=== PATIENT | female | born 1940 ===

== ENCOUNTER 2020-10-10 11:21 | Outpatient (REF) | payer MEDICARE, MEDICAID, SELFPAY ==
--- NOTE | 2020-10-10 11:31 | XR_ITS ---
EXAMINATION: XR KNEE, LEFT CLINICAL INFORMATION: Left knee pain COMPARISON: 06/04/2017 TECHNIQUE: AP and lateral views of the left knee. FINDINGS: Prior total knee arthroplasty. No acute findings compared to 06/04/2017. There is stable appearance of the constrained femoral and tibial components. There is a stable, approximately 0.2 cm rim of lucency at the interface between the stem of the femoral component and bone. Stable appearance of the cement in the region of the femoral metaphysis. There is no convincing loosening of the hardware. There is chronic, mild, smooth cortical thickening in the distal femoral diaphysis around the region of the tip of the femoral stem. No stress fracture in this region of the femur. There is an old fracture defect in the anterior cortex of the femoral metaphysis, unchanged compared to 06/04/2017. No abnormal lucency around the cemented tibial component. No periprosthetic fracture. No knee joint effusion. XR/XR knee LT 2V IMPRESSION: Intact, stable appearance of the left total knee arthroplasty compared to 06/04/2017. Stable appearance of chronic, smooth cortical thickening around the region of the tip of the femoral stem. This is compatible with a chronic stress response. However, no stress fracture.
== END 2020-10-10 11:22 | disposition home or self-care (01) ==
LOC: HO.XRAY 11:21
PROVIDERS: PCP Internal Medicine; Visit Provider Nurse Practitioner Family
DX: M25.562 Pain in left knee (principal)
CPT/HCPCS: 73560

== ENCOUNTER 2020-11-14 09:02 | Outpatient (REF) | payer MEDICARE, MEDICAID, SELFPAY ==
[2020-11-14 10:29] LABS: MANUAL DIFF FLAG NO
[2020-11-14 10:32] LABS: Glucose Urine UA NEG (NEG); Leukocyte Esterase Urine NEG (NEG); Nitrite Urine NEG (NEG); PH 5.5 (5.0-8.0); Specific Gravity - Urine 1.025 (1.005-1.025); Urine Blood NEG (NEG); Urine Ketones NEG (NEG); Urine Protein NEG (NEG-TRACE)
[2020-11-14 10:38] LABS: Appearance Urine CLEAR; Color Urine YELLOW
[2020-11-14 10:40] LABS: Basophils Percent Auto 0.1 % (0-2); Eosinophils Absolute Auto 0.1 X10*3/uL (0.0-0.4); Eosinophils Percent Auto 1.6 % (0-4); Hematocrit 41.6 % (37-47); Hemoglobin 12.6 g/dl (12.0-16.0); Imm Gran Abs Auto 0.02 X10*3/uL (0.00-0.03); Imm Gran Pct Auto 0.2 % (0.0-0.4); Lymphocytes Absolute Auto 2.4 X10*3/uL (1.2-4.9); Lymphocytes Percent Auto 28.3 % (20-40); Mean Corpuscular HGB Conc 30.3 g/dl (31.0-35.0); Mean Corpuscular Hemoglobin 25.6 pg (27.0-33.0); Mean Corpuscular Volume 84.4 fL (80-98); Mean Platelet Volume 10.5 fL (9.4-12.3); Monocytes Absolute Auto 0.4 X10*3/uL (0.1-1.2); Monocytes Percent Auto 4.9 % (2-11); Neutrophils Absolute Auto 5.4 X10*3/uL (2.0-8.3); Neutrophils Percent Auto 64.9 % (45-73); Platelet Count 234 X10*3/uL (160-400); Red Blood Count 4.93 X10*6/uL (4.20-5.50); Red Cell Distribution Width 16.4 % (11.0-16.0); White Blood Count 8.4 X10*3/uL (4.8-10.8)
[2020-11-14 11:06] LABS: Alanine Aminotransferase 11 U/L (0-31); Albumin Level 3.8 g/dL (3.5-5.0); Alkaline Phosphatase 110 U/L (39-117); Anion Gap 14 (12-20); Aspartate Amino Transferase 13 U/L (5-31); Bilirubin Total 0.6 mg/dL (0.0-1.0); Blood Urea Nitrogen 20 mg/dL (9-16); Carbon Dioxide 30 mmol/L (22-29); Chloride 104 mmol/L (96-108); Cholesterol 147 mg/dL; Estimated Glomerular Filt Rate > 60; Glucose Fasting 80 mg/dL (60-99); HDL Cholesterol 50 mg/dL; LDL Cholesterol Calculated 82 mg/dl; Potassium 4.3 mmol/l (3.3-5.1); Sodium 144 mmol/L (135-145); Total Protein 7.3 g/dL (6.5-8.0); Triglycerides 78 mg/dL
[2020-11-14 11:29] LABS: TSH reflex Free T4 4.16 mIU/mL (0.32-4.0)
[2020-11-14 11:31] LABS: Creatinine Urine 129.48 mg/dL; Microalbum/Creatinine Ratio Ur 4.6 ug/mg cr
[2020-11-14 12:01] LABS: Free T4 (Free Thyroxine) 0.94 ng/dL (0.71-1.85)
== END 2020-11-14 09:03 | disposition home or self-care (01) ==
LOC: HO.10HDL 09:02
PROVIDERS: Visit Provider Internal Medicine
DX: I10 Essential (primary) hypertension (principal); E11.9 Type 2 diabetes mellitus without complications; Z79.4 Long term (current) use of insulin; E78.00 Pure hypercholesterolemia, unspecified; E78.5 Hyperlipidemia, unspecified; E55.9 Vitamin D deficiency, unspecified; E66.01 Morbid (severe) obesity due to excess calories; Z68.42 Body mass index [BMI] 45.0-49.9, adult
CPT/HCPCS: 36415; 80053; 80061; 81003; 82043; 82306; 84439; 84443; 85025

== ENCOUNTER 2021-02-10 08:31 | Outpatient (REF) | payer MEDICARE, MEDICAID, SELFPAY ==
[2021-02-10 10:26] LABS: Glucose Urine UA NEG (NEG); Leukocyte Esterase Urine NEG (NEG); Nitrite Urine NEG (NEG); PH 5.5 (5.0-8.0); Specific Gravity - Urine 1.025 (1.005-1.025); Urine Blood NEG (NEG); Urine Ketones NEG (NEG); Urine Protein NEG (NEG-TRACE)
[2021-02-10 10:27] LABS: MANUAL DIFF FLAG NO
[2021-02-10 10:35] LABS: Basophils Percent Auto 0.1 % (0-2); Eosinophils Absolute Auto 0.2 X10*3/uL (0.0-0.4); Eosinophils Percent Auto 1.9 % (0-4); Hematocrit 42.2 % (37-47); Hemoglobin 12.7 g/dl (12.0-16.0); Imm Gran Abs Auto 0.02 X10*3/uL (0.00-0.03); Imm Gran Pct Auto 0.3 % (0.0-0.4); Lymphocytes Absolute Auto 2.5 X10*3/uL (1.2-4.9); Lymphocytes Percent Auto 31.7 % (20-40); Mean Corpuscular HGB Conc 30.1 g/dl (31.0-35.0); Mean Corpuscular Hemoglobin 26.1 pg (27.0-33.0); Mean Corpuscular Volume 86.7 fL (80-98); Mean Platelet Volume 10.6 fL (9.4-12.3); Monocytes Absolute Auto 0.5 X10*3/uL (0.1-1.2); Monocytes Percent Auto 5.8 % (2-11); Neutrophils Absolute Auto 4.7 X10*3/uL (2.0-8.3); Neutrophils Percent Auto 60.2 % (45-73); Platelet Count 265 X10*3/uL (160-400); Red Blood Count 4.87 X10*6/uL (4.20-5.50); Red Cell Distribution Width 15.8 % (11.0-16.0); White Blood Count 7.7 X10*3/uL (4.8-10.8)
[2021-02-10 10:47] LABS: Creatinine Urine 119.69 mg/dL; Microalbumin Urine < 5.0 mg/L
[2021-02-10 10:48] LABS: Color Urine YELLOW
[2021-02-10 10:49] LABS: Appearance Urine CLEAR
[2021-02-10 10:50] LABS: Alanine Aminotransferase 10 U/L (0-31); Albumin Level 3.9 g/dL (3.5-5.0); Alkaline Phosphatase 108 U/L (39-117); Anion Gap 16 (12-20); Aspartate Amino Transferase 13 U/L (5-31); Bilirubin Total 0.7 mg/dL (0.0-1.0); Blood Urea Nitrogen 21 mg/dL (9-16); Calcium 8.9 mg/dL (8.4-10.2); Carbon Dioxide 29 mmol/L (22-29); Chloride 102 mmol/L (96-108); Cholesterol 126 mg/dL; Estimated Glomerular Filt Rate > 60; Glucose Fasting 133 mg/dL (60-99); HDL Cholesterol 45 mg/dL; LDL Cholesterol Calculated 65 mg/dl; Potassium 4.5 mmol/L (3.3-5.1); Sodium 142 mmol/L (135-145); Total Protein 7.5 g/dL (6.5-8.0); Triglycerides 83 mg/dL
[2021-02-10 11:12] LABS: TSH reflex Free T4 5.88 uIU/mL (0.32-4.0); Vitamin D 25-OH Total 33.6 ng/mL (>30)
[2021-02-10 11:45] LABS: Free T4 (Free Thyroxine) 0.86 ng/dL (0.71-1.85)
== END 2021-02-10 08:32 | disposition home or self-care (01) ==
LOC: HO.10HDL 08:31
PROVIDERS: Visit Provider Internal Medicine
DX: I10 Essential (primary) hypertension (principal); E55.9 Vitamin D deficiency, unspecified; E66.01 Morbid (severe) obesity due to excess calories; Z68.42 Body mass index [BMI] 45.0-49.9, adult; E11.9 Type 2 diabetes mellitus without complications; Z79.4 Long term (current) use of insulin; E78.00 Pure hypercholesterolemia, unspecified; J30.9 Allergic rhinitis, unspecified; K21.9 Gastro-esophageal reflux disease without esophagitis
CPT/HCPCS: 36415; 80053; 80061; 81003; 82043; 82306; 84439; 84443; 85025

== ENCOUNTER 2021-07-03 08:30 | Outpatient (REF) | payer MEDICARE, MEDICAID, SELFPAY ==
[2021-07-03 10:34] LABS: MANUAL DIFF FLAG NO
[2021-07-03 10:42] LABS: Basophils Percent Auto 0.3 % (0-2); Eosinophils Absolute Auto 0.1 X10*3/uL (0.0-0.4); Eosinophils Percent Auto 1.9 % (0-4); Imm Gran Abs Auto 0.02 X10*3/uL (0.00-0.03); Imm Gran Pct Auto 0.3 % (0.0-0.4); Lymphocytes Absolute Auto 2.3 X10*3/uL (1.2-4.9); Lymphocytes Percent Auto 32.1 % (20-40); Mean Corpuscular HGB Conc 30.2 g/dl (31.0-35.0); Mean Corpuscular Hemoglobin 25.6 pg (27.0-33.0); Mean Corpuscular Volume 84.8 fL (80-98); Mean Platelet Volume 10.4 fL (9.4-12.3); Monocytes Absolute Auto 0.3 X10*3/uL (0.1-1.2); Monocytes Percent Auto 4.6 % (2-11); Neutrophils Absolute Auto 4.4 X10*3/uL (2.0-8.3); Neutrophils Percent Auto 60.8 % (45-73); Platelet Count 264 X10*3/uL (160-400); Red Blood Count 5.07 X10*6/uL (4.20-5.50); Red Cell Distribution Width 16.2 % (11.0-16.0); White Blood Count 7.3 X10*3/uL (4.8-10.8)
[2021-07-03 10:55] LABS: Alanine Aminotransferase 9 U/L (0-31); Albumin Level 3.9 g/dL (3.5-5.0); Alkaline Phosphatase 86 U/L (39-117); Anion Gap 12 (12-20); Aspartate Amino Transferase 10 U/L (5-31); Bilirubin Total 0.6 mg/dL (0.0-1.0); Blood Urea Nitrogen 17 mg/dL (9-16); Calcium 9.4 mg/dL (8.4-10.2); Carbon Dioxide 30 mmol/L (22-29); Chloride 102 mmol/L (96-108); Cholesterol 207 mg/dL; Estimated Glomerular Filt Rate > 60; Glucose Fasting 232 mg/dL (60-99); HDL Cholesterol 47 mg/dL; LDL Cholesterol Calculated 134 mg/dl; Potassium 4.1 mmol/L (3.3-5.1); Sodium 140 mmol/L (135-145); Total Protein 7.2 g/dL (6.5-8.0); Triglycerides 134 mg/dL
[2021-07-03 11:18] LABS: Free T4 (Free Thyroxine) 0.89 ng/dL (0.71-1.85); Thyroid Stimulating Hormone 4.17 uIU/mL (0.32-4.0); Vitamin D 25-OH Total 22.7 ng/mL (>30)
[2021-07-03 12:19] LABS: Estimated Average Glucose 169 mg/dL; Hemoglobin A1c % 7.5 %
[2021-07-03 14:21] LABS: Glucose Urine UA NEG (NEG); Leukocyte Esterase Urine NEG (NEG); Nitrite Urine NEG (NEG); Specific Gravity - Urine 1.025 (1.005-1.025); Urine Blood NEG (NEG); Urine Ketones NEG (NEG); Urine Protein NEG (NEG-TRACE)
[2021-07-03 14:22] LABS: Appearance Urine HAZY; Color Urine YELLOW
[2021-07-03 14:47] LABS: Creatinine Urine 182.48 mg/dL; Microalbum/Creatinine Ratio Ur 3.8 ug/mg cr
== END 2021-07-03 08:31 | disposition home or self-care (01) ==
LOC: HO.10HDL 08:30
PROVIDERS: Visit Provider Internal Medicine
DX: E66.01 Morbid (severe) obesity due to excess calories (principal); Z68.42 Body mass index [BMI] 45.0-49.9, adult; K21.9 Gastro-esophageal reflux disease without esophagitis; I10 Essential (primary) hypertension; E55.9 Vitamin D deficiency, unspecified; R79.89 Other specified abnormal findings of blood chemistry; E78.00 Pure hypercholesterolemia, unspecified; E03.9 Hypothyroidism, unspecified; E11.9 Type 2 diabetes mellitus without complications; Z79.4 Long term (current) use of insulin
CPT/HCPCS: 36415; 80053; 80061; 81003; 82043; 82306; 83036; 84439; 84443; 85025

== ENCOUNTER 2021-09-29 08:53 | Outpatient (REF) | payer MEDICARE, MEDICAID, SELFPAY ==
[2021-09-29 10:14] LABS: MANUAL DIFF FLAG NO
[2021-09-29 10:22] LABS: Basophils Percent Auto 0.2 % (0-2); Eosinophils Absolute Auto 0.1 X10*3/uL (0.0-0.4); Eosinophils Percent Auto 1.7 % (0-4); Hematocrit 41.1 % (37.0-47.0); Hemoglobin 12.6 g/dl (12.0-16.0); Imm Gran Abs Auto 0.02 X10*3/uL (0.00-0.03); Imm Gran Pct Auto 0.2 % (0.0-0.4); Lymphocytes Absolute Auto 2.7 X10*3/uL (1.2-4.9); Lymphocytes Percent Auto 32.6 % (20-40); Mean Corpuscular HGB Conc 30.7 g/dl (31.0-35.0); Mean Corpuscular Hemoglobin 26.2 pg (27.0-33.0); Mean Corpuscular Volume 85.4 fL (80.0-98.0); Mean Platelet Volume 10.6 fL (9.4-12.3); Monocytes Absolute Auto 0.4 X10*3/uL (0.1-1.2); Monocytes Percent Auto 5.1 % (2-11); Neutrophils Percent Auto 60.2 % (45-73); Platelet Count 286 X10*3/uL (160-400); Red Blood Count 4.81 X10*6/uL (4.20-5.50); White Blood Count 8.3 X10*3/uL (4.8-10.8)
[2021-09-29 10:27] LABS: Appearance Urine HAZY; Color Urine YELLOW; Glucose Urine UA NEG (NEG); Leukocyte Esterase Urine NEG (NEG); Nitrite Urine NEG (NEG); PH 5.5 (5.0-8.0); Specific Gravity - Urine >= 1.030 (1.005-1.025); Urine Blood NEG (NEG); Urine Ketones NEG (NEG); Urine Protein NEG (NEG-TRACE)
[2021-09-29 10:28] LABS: Estimated Average Glucose 209 mg/dL; Hemoglobin A1c % 8.9 %
[2021-09-29 11:02] LABS: Alanine Aminotransferase 16 U/L (0-31); Albumin Level 3.9 g/dL (3.5-5.0); Alkaline Phosphatase 124 U/L (39-117); Anion Gap 15 (12-20); Aspartate Amino Transferase 14 U/L (5-31); Bilirubin Total 0.8 mg/dL (0.0-1.0); Blood Urea Nitrogen 23 mg/dL (9-16); Calcium 9.5 mg/dL (8.4-10.2); Carbon Dioxide 28 mmol/L (22-29); Chloride 104 mmol/L (96-108); Cholesterol 133 mg/dL; Estimated Glomerular Filt Rate 58; Glucose Fasting 216 mg/dL (60-99); HDL Cholesterol 43 mg/dL; LDL Cholesterol Calculated 71 mg/dl; Potassium 4.5 mmol/L (3.3-5.1); Sodium 142 mmol/L (135-145); Total Protein 7.4 g/dL (6.5-8.0); Triglycerides 95 mg/dL
[2021-09-29 11:03] LABS: Creatinine Urine 205.14 mg/dL; Microalbum/Creatinine Ratio Ur 5.3 ug/mg cr
[2021-09-29 11:08] LABS: Thyroid Stimulating Hormone 3.29 uIU/mL (0.32-4.0); Vitamin D 25-OH Total 24.3 ng/mL (>30)
== END 2021-09-29 08:54 | disposition home or self-care (01) ==
LOC: HO.10HDL 08:53
PROVIDERS: Visit Provider Internal Medicine
DX: I10 Essential (primary) hypertension (principal); E03.9 Hypothyroidism, unspecified; E55.9 Vitamin D deficiency, unspecified; E11.9 Type 2 diabetes mellitus without complications; E78.00 Pure hypercholesterolemia, unspecified
CPT/HCPCS: 36415; 80053; 80061; 81003; 82043; 82306; 83036; 84443; 85025

== ENCOUNTER 2022-02-09 08:22 | Outpatient (REF) | payer MEDICARE, MEDICAID, SELFPAY ==
[2022-02-09 10:39] LABS: MANUAL DIFF FLAG NO
[2022-02-09 10:44] LABS: Basophils Percent Auto 0.3 % (0-2); Eosinophils Absolute Auto 0.1 X10*3/uL (0.0-0.4); Eosinophils Percent Auto 1.2 % (0-4); Hematocrit 42.4 % (37.0-47.0); Hemoglobin 12.9 g/dl (12.0-16.0); Imm Gran Abs Auto 0.03 X10*3/uL (0.00-0.03); Imm Gran Pct Auto 0.4 % (0.0-0.4); Lymphocytes Absolute Auto 2.3 X10*3/uL (1.2-4.9); Lymphocytes Percent Auto 29.8 % (20-40); Mean Corpuscular HGB Conc 30.4 g/dl (31.0-35.0); Mean Corpuscular Hemoglobin 26.2 pg (27.0-33.0); Mean Corpuscular Volume 86.2 fL (80.0-98.0); Mean Platelet Volume 10.9 fL (9.4-12.3); Monocytes Absolute Auto 0.5 X10*3/uL (0.1-1.2); Neutrophils Absolute Auto 4.9 x10*3/uL (2.0-8.3); Neutrophils Percent Auto 62.3 % (45-73); Platelet Count 234 X10*3/uL (160-400); Red Blood Count 4.92 X10*6/uL (4.20-5.50); Red Cell Distribution Width 16.3 % (11.0-16.0); White Blood Count 7.8 X10*3/uL (4.8-10.8)
[2022-02-09 11:00] LABS: Alanine Aminotransferase 13 U/L (0-31); Alkaline Phosphatase 106 U/L (39-117); Anion Gap 13 (12-20); Aspartate Amino Transferase 18 U/L (5-31); Bilirubin Total 0.5 mg/dL (0.0-1.0); Blood Urea Nitrogen 20 mg/dL (9-16); Calcium 9.9 mg/dL (8.4-10.2); Carbon Dioxide 29 mmol/L (22-29); Chloride 106 mmol/L (96-108); Cholesterol 179 mg/dL; Estimated Glomerular Filt Rate > 60; Glucose Fasting 160 mg/dL (60-99); HDL Cholesterol 53 mg/dL; LDL Cholesterol Calculated 107 mg/dl; Potassium 4.6 mmol/L (3.3-5.1); Sodium 143 mmol/L (135-145); Total Protein 7.7 g/dL (6.5-8.0); Triglycerides 95 mg/dL
[2022-02-09 11:08] LABS: Appearance Urine CLEAR; Color Urine YELLOW; Glucose Urine UA NEG (NEG); Leukocyte Esterase Urine NEG (NEG); Nitrite Urine NEG (NEG); PH 5.5 (5.0-8.0); Specific Gravity - Urine >= 1.030 (1.005-1.025); Urine Blood NEG (NEG); Urine Ketones NEG (NEG); Urine Protein NEG (NEG-TRACE)
[2022-02-09 11:08] LABS: Estimated Average Glucose 174 mg/dL; Hemoglobin A1c % 7.7 %
[2022-02-09 11:20] LABS: Free T4 (Free Thyroxine) 0.91 ng/dL (0.71-1.85); Thyroid Stimulating Hormone 5.35 uIU/mL (0.32-4.0)
[2022-02-09 12:11] LABS: Creatinine Urine 156.59 mg/dL; Microalbum/Creatinine Ratio Ur 4.4 ug/mg cr
== END 2022-02-09 08:23 | disposition home or self-care (01) ==
LOC: HO.10HDL 08:22
PROVIDERS: Visit Provider Internal Medicine
DX: E78.00 Pure hypercholesterolemia, unspecified (principal); E11.9 Type 2 diabetes mellitus without complications; E55.9 Vitamin D deficiency, unspecified; R79.89 Other specified abnormal findings of blood chemistry; I10 Essential (primary) hypertension
CPT/HCPCS: 36415; 80053; 80061; 81003; 82043; 82306; 83036; 84439; 84443; 85025

== ENCOUNTER 2022-05-08 08:31 | Outpatient (REF) | payer MEDICARE, MEDICAID, SELFPAY ==
[2022-05-08 10:32] LABS: MANUAL DIFF FLAG NO
[2022-05-08 10:36] LABS: Basophils Percent Auto 0.3 % (0-2); Eosinophils Absolute Auto 0.2 X10*3/uL (0.0-0.4); Eosinophils Percent Auto 2.5 % (0-4); Hematocrit 43.4 % (37.0-47.0); Hemoglobin 12.8 g/dl (12.0-16.0); Imm Gran Abs Auto 0.02 X10*3/uL (0.00-0.03); Imm Gran Pct Auto 0.3 % (0.0-0.4); Lymphocytes Absolute Auto 2.5 X10*3/uL (1.2-4.9); Lymphocytes Percent Auto 35.1 % (20-40); Mean Corpuscular HGB Conc 29.5 g/dl (31.0-35.0); Mean Corpuscular Volume 84.8 fL (80.0-98.0); Mean Platelet Volume 10.2 fL (9.4-12.3); Monocytes Absolute Auto 0.4 X10*3/uL (0.1-1.2); Monocytes Percent Auto 5.4 % (2-11); Neutrophils Absolute Auto 4.1 x10*3/uL (2.0-8.3); Neutrophils Percent Auto 56.4 % (45-73); Platelet Count 259 X10*3/uL (160-400); Red Blood Count 5.12 X10*6/uL (4.20-5.50); Red Cell Distribution Width 16.7 % (11.0-16.0); White Blood Count 7.2 X10*3/uL (4.8-10.8)
[2022-05-08 10:48] LABS: Appearance Urine HAZY; Color Urine YELLOW; Glucose Urine UA NEG (NEG); Leukocyte Esterase Urine NEG (NEG); Nitrite Urine NEG (NEG); Urine Blood NEG (NEG); Urine Ketones NEG (NEG); Urine Protein NEG (NEG-TRACE)
[2022-05-08 10:51] LABS: Alanine Aminotransferase 8 U/L (0-31); Albumin Level 3.8 g/dL (3.5-5.0); Alkaline Phosphatase 96 U/L (39-117); Anion Gap 12 (12-20); Aspartate Amino Transferase 10 U/L (5-31); Bilirubin Total 0.3 mg/dL (0.0-1.0); Blood Urea Nitrogen 16 mg/dL (9-16); Calcium 9.1 mg/dL (8.4-10.2); Carbon Dioxide 30 mmol/L (22-29); Chloride 105 mmol/L (96-108); Cholesterol 216 mg/dL; Estimated Glomerular Filt Rate > 60; Glucose Fasting 111 mg/dL (60-99); HDL Cholesterol 47 mg/dL; LDL Cholesterol Calculated 143 mg/dl; Potassium 4.6 mmol/L (3.3-5.1); Sodium 142 mmol/L (135-145); Total Protein 7.3 g/dL (6.5-8.0); Triglycerides 131 mg/dL
[2022-05-08 11:05] LABS: Free T4 (Free Thyroxine) 0.83 ng/dL (0.71-1.85); Thyroid Stimulating Hormone 3.18 uIU/mL (0.32-4.0); Vitamin D 25-OH Total 21.6 ng/mL (>30)
[2022-05-08 11:21] LABS: Estimated Average Glucose 163 mg/dL; Hemoglobin A1c % 7.3 %
[2022-05-08 11:49] LABS: Creatinine Urine 71.19 mg/dL; Microalbum/Creatinine Ratio Ur 8.4 ug/mg cr
== END 2022-05-08 08:32 | disposition home or self-care (01) ==
LOC: HO.10HDL 08:31
PROVIDERS: Visit Provider Internal Medicine
DX: R79.89 Other specified abnormal findings of blood chemistry (principal); E78.00 Pure hypercholesterolemia, unspecified; E11.9 Type 2 diabetes mellitus without complications; I10 Essential (primary) hypertension; E55.9 Vitamin D deficiency, unspecified
CPT/HCPCS: 36415; 80053; 80061; 81003; 82043; 82306; 83036; 84439; 84443; 85025

== ENCOUNTER 2022-05-22 10:29 | Outpatient (REF) | payer MEDICARE, MEDICAID, SELFPAY ==
--- NOTE | ~2022-05-22 | MM_ITS ---
EXAMINATION: BONE DENSITOMETRY CLINICAL INDICATION: Age-related osteoporosis without current pathological fracture. COMPARISON: Previous BD dated 09/17/2017 and baseline BD dated 09/25/2008. TECHNIQUE: Using a [employer] DXA System (software version: 13.1) manufactured by [employer], dual-energy x-ray absorptiometry was performed of the lumbar spine and left hip. The images are of good technical quality. Summary results are attached. FINDINGS: AP SPINE L1-L4: Current: BMD 0.874 g/cm2, Z-score -1.9, T-score -2.6, osteoporosis, 2.2% increase from previous, 15.5% increase from baseline (<5% change is not significant). Prior: BMD 0.855 g/cm2. Baseline: BMD 0.757 g/cm2. LEFT FEMUR, NECK: Current: BMD 0.816 g/cm2, Z-score -0.2, T-score -1.6, osteopenia. Prior: BMD 0.834 g/cm2. Baseline: BMD 0.705 g/cm2. LEFT FEMUR, TOTAL: Current: BMD 0.843 g/cm2, Z-score -0.1, T-score -1.3, osteopenia, 3.2% decrease from previous, 2.1% decrease from baseline (<5% change is not significant). Prior: BMD 0.871 g/cm2. Baseline: BMD 0.861 g/cm2. IDENTIFIED RISK FACTORS: Early menopause, secondary osteoporosis, hysterectomy, bilateral oophorectomy, glucocorticoids (chronic), thiazide, osteoporosis. HISTORY OF FRACTURE: None listed. MEDICATIONS: Calcium supplements or multivitamin, vitamin D. MM/XR DEXA axial skeleton IMPRESSION: 1. DIAGNOSIS: Osteoporosis based on the lowest T-score value of -2.6 in the lumbar spine applying World Health Organization criteria. 2. 10-YEAR FRACTURE RISK PREDICTION, FRAX: Major osteoporotic fracture (clinical spine, forearm, hip or shoulder) 10.5%. Hip fracture 2.7%. 3. Treatment Recommendations: NOF guidelines recommend consideration for treatment in postmenopausal women and men age 50 and older presenting with the following: -A hip or vertebral (clinical or morphometric) fracture. -T-score less than or equal to -2.5 at the femoral neck or spine after appropriate evaluation to exclude secondary causes. -Low bone mass at the hip or spine and a 10-year fracture probability by FRAX of greater than or equal to 3% for hip fracture or greater than or equal to 20% for major osteoporotic fracture based on the [place] adapted WHO algorithm. 4. Other Recommendations: All treatment decisions require clinical judgment and consideration of individual patient factors, including patient preferences, comorbidities, previous drug use, risk factors not captured in the FRAX model (e.g. frailty, falls, vitamin D deficiency, increased bone turnover, interval significant decline in bone density) and possible under or overestimation of fracture risk by FRAX. Additional medical evaluation for secondary cause of low bone mineral density may be appropriate. FUTURE SCAN RECOMMENDATION: People with diagnosed cases of osteoporosis or at high risk for fracture should have regular bone mineral density tests. For patients eligible for Medicare, routine testing is allowed once every 2 years. The testing frequency can be increased to one year for patients who have rapidly progressing disease, those who are receiving or discontinuing medical therapy to restore bone mass, or have additional risk factors.
== END 2022-05-22 10:30 | disposition home or self-care (01) ==
LOC: HO.MAMMO 10:29
PROVIDERS: PCP Internal Medicine; Visit Provider Internal Medicine
DX: Z13.820 Encounter for screening for osteoporosis (principal); M81.0 Age-related osteoporosis without current pathological fracture; Z78.0 Asymptomatic menopausal state
CPT/HCPCS: 77080

== ENCOUNTER 2022-09-07 08:53 | Outpatient (REF) | payer MEDICARE, MEDICAID, SELFPAY ==
[2022-09-07 10:28] LABS: MANUAL DIFF FLAG NO
[2022-09-07 10:39] LABS: Basophils Percent Auto 0.5 % (0-2); Eosinophils Absolute Auto 0.2 X10*3/uL (0.0-0.4); Eosinophils Percent Auto 2.3 % (0-4); Hematocrit 42.3 % (37.0-47.0); Hemoglobin 12.6 g/dl (12.0-16.0); Imm Gran Abs Auto 0.02 X10*3/uL (0.00-0.03); Imm Gran Pct Auto 0.3 % (0.0-0.4); Lymphocytes Absolute Auto 1.8 X10*3/uL (1.2-4.9); Lymphocytes Percent Auto 28.5 % (20-40); Mean Corpuscular HGB Conc 29.8 g/dl (31.0-35.0); Mean Corpuscular Hemoglobin 25.6 pg (27.0-33.0); Mean Corpuscular Volume 85.8 fL (80.0-98.0); Mean Platelet Volume 10.4 fL (9.4-12.3); Monocytes Absolute Auto 0.3 X10*3/uL (0.1-1.2); Monocytes Percent Auto 5.3 % (2-11); Neutrophils Percent Auto 63.1 % (45-73); Platelet Count 252 X10*3/uL (160-400); Red Blood Count 4.93 X10*6/uL (4.20-5.50); Red Cell Distribution Width 16.9 % (11.0-16.0); White Blood Count 6.4 X10*3/uL (4.8-10.8)
[2022-09-07 10:55] LABS: Estimated Average Glucose 151 mg/dL; Hemoglobin A1c % 6.9 %
[2022-09-07 11:10] LABS: Appearance Urine Clear; Color Urine Yellow; Glucose Urine UA Negative (Negative); Leukocyte Esterase Urine Negative (Negative); Nitrite Urine Negative (Negative); Specific Gravity - Urine 1.015 (1.005-1.025); Urine Blood Negative (Negative); Urine Ketones Negative (Negative); Urine Protein Negative (Neg-Trace)
[2022-09-07 11:11] LABS: Alanine Aminotransferase 10 U/L (0-31); Albumin Level 3.8 g/dL (3.5-5.0); Alkaline Phosphatase 116 U/L (39-117); Anion Gap 16 (12-20); Aspartate Amino Transferase 13 U/L (5-31); Bilirubin Total 0.9 mg/dL (0.0-1.0); Blood Urea Nitrogen 13 mg/dL (9-16); Calcium 9.3 mg/dL (8.4-10.2); Carbon Dioxide 28 mmol/L (22-29); Chloride 105 mmol/L (96-108); Cholesterol 171 mg/dL; Estimated Glomerular Filt Rate > 60; Glucose Fasting 128 mg/dL (60-99); HDL Cholesterol 53 mg/dL; LDL Cholesterol Calculated 103 mg/dl; Potassium 4.1 mmol/L (3.3-5.1); Sodium 145 mmol/L (135-145); Total Protein 7.4 g/dL (6.5-8.0); Triglycerides 79 mg/dL
[2022-09-07 11:15] LABS: Creatinine Urine 98.33 mg/dL; Microalbum/Creatinine Ratio Ur 8.1 ug/mg cr
[2022-09-07 11:17] LABS: Free T4 (Free Thyroxine) 0.99 ng/dL (0.71-1.85); Thyroid Stimulating Hormone 2.11 uIU/mL (0.32-4.0)
[2022-09-07 12:15] LABS: Folate 16.5 ng/mL (> or = 4.0); Vitamin B12 341 pg/mL (200-900)
== END 2022-09-07 08:54 | disposition home or self-care (01) ==
LOC: HO.10HDL 08:53
PROVIDERS: Visit Provider Internal Medicine
DX: E53.8 Deficiency of other specified B group vitamins (principal); E03.9 Hypothyroidism, unspecified; I10 Essential (primary) hypertension; E78.00 Pure hypercholesterolemia, unspecified; E11.9 Type 2 diabetes mellitus without complications; E55.9 Vitamin D deficiency, unspecified
CPT/HCPCS: 36415; 80053; 80061; 81003; 82043; 82306; 82607; 82746; 83036; 84439; 84443; 85025

== ENCOUNTER 2023-01-01 09:46 | Outpatient (REF) | payer MEDICARE, MEDICAID, SELFPAY ==
[2023-01-01 10:57] LABS: MANUAL DIFF FLAG NO
[2023-01-01 11:03] LABS: Appearance Urine Clear; Color Urine Yellow; Glucose Urine UA Negative (Negative); Leukocyte Esterase Urine Negative (Negative); Nitrite Urine Negative (Negative); Specific Gravity - Urine 1.025 (1.005-1.025); Urine Blood Negative (Negative); Urine Ketones Negative (Negative); Urine Protein Negative (Neg-Trace)
[2023-01-01 11:12] LABS: Basophils Percent Auto 0.3 % (0-2); Eosinophils Absolute Auto 0.1 X10*3/uL (0.0-0.4); Eosinophils Percent Auto 2.1 % (0-4); Hemoglobin 13.3 g/dl (12.0-16.0); Imm Gran Abs Auto 0.02 X10*3/uL (0.00-0.03); Imm Gran Pct Auto 0.3 % (0.0-0.4); Lymphocytes Absolute Auto 1.6 X10*3/uL (1.2-4.9); Lymphocytes Percent Auto 25.2 % (20-40); Mean Corpuscular HGB Conc 30.2 g/dl (31.0-35.0); Mean Corpuscular Volume 85.9 fL (80.0-98.0); Mean Platelet Volume 10.8 fL (9.4-12.3); Monocytes Absolute Auto 0.3 X10*3/uL (0.1-1.2); Monocytes Percent Auto 5.1 % (2-11); Neutrophils Absolute Auto 4.2 x10*3/uL (2.0-8.3); Platelet Count 271 X10*3/uL (160-400); Red Blood Count 5.12 X10*6/uL (4.20-5.50); Red Cell Distribution Width 16.6 % (11.0-16.0); White Blood Count 6.2 X10*3/uL (4.8-10.8)
[2023-01-01 11:22] LABS: Estimated Average Glucose 171 mg/dL; Hemoglobin A1c % 7.6 %
[2023-01-01 12:29] LABS: Creatinine Urine 218.03 mg/dL; Microalbum/Creatinine Ratio Ur 8.7 ug/mg cr
[2023-01-01 12:54] LABS: Alanine Aminotransferase 9 U/L (0-31); Albumin Level 3.7 g/dL (3.5-5.0); Alkaline Phosphatase 96 U/L (39-117); Anion Gap 14 (12-20); Aspartate Amino Transferase 14 U/L (5-31); Bilirubin Total 0.8 mg/dL (0.0-1.0); Blood Urea Nitrogen 19 mg/dL (9-16); Calcium 9.3 mg/dL (8.4-10.2); Carbon Dioxide 29 mmol/L (22-29); Chloride 105 mmol/L (96-108); Cholesterol 225 mg/dL; Estimated Glomerular Filt Rate > 60; Glucose Fasting 168 mg/dL (60-99); HDL Cholesterol 51 mg/dL; LDL Cholesterol Calculated 155 mg/dl; Potassium 4.6 mmol/L (3.3-5.1); Sodium 143 mmol/L (135-145); Total Protein 6.9 g/dL (6.5-8.0); Triglycerides 99 mg/dL
[2023-01-01 12:59] LABS: TSH reflex Free T4 1.95 uIU/mL (0.32-4.0); Vitamin D 25-OH Total 20.3 ng/mL (>30)
== END 2023-01-01 09:47 | disposition home or self-care (01) ==
LOC: HO.10HDL 09:46
PROVIDERS: Visit Provider Internal Medicine
DX: E78.00 Pure hypercholesterolemia, unspecified (principal); I10 Essential (primary) hypertension; E11.9 Type 2 diabetes mellitus without complications; E55.9 Vitamin D deficiency, unspecified; R30.0 Dysuria
CPT/HCPCS: 36415; 80053; 80061; 81003; 82043; 82306; 83036; 84443; 85025

== ENCOUNTER 2023-02-08 09:24 | Outpatient (REF) | payer MEDICARE, MEDICAID, SELFPAY | END 2023-02-08 09:25 | disposition home or self-care (01) | LOC: HO.HOSX 09:24 | PROVIDERS: Visit Provider Orthopaedic Surgery | DX: Z13.89 Encounter for screening for other disorder (principal) ==

== ENCOUNTER 2023-02-25 08:37 | Outpatient (REF) | payer MEDICARE, MEDICAID, SELFPAY ==
--- NOTE | ~2023-02-25 | XR_ITS ---
EXAMINATION: XR knee standing BI, XR knee LT 2V, XR knee RT 2V CLINICAL INFORMATION: Pain COMPARISON: 06/04/2017 and 10/10/2020. TECHNIQUE: Standing AP view of both knees. Lateral and sunrise views of the left knee. Lateral and sunrise views of the right knee. FINDINGS: Left knee: Total left knee arthroplasty. Longstem femoral and tibial components. Alignment of the hardware is near-anatomic. No periprosthetic fracture. There is increased lucency along the cement of the tibial stem laterally. This is a change from prior. There is no significant joint effusion. Mild soft tissue swelling. Right knee: Total right knee arthroplasty. The femoral component articulates appropriately with the tibial and patellar components. No periprosthetic lucency or fracture. No joint effusion. XR/XR knee LT 2V IMPRESSION: 1. Total left knee arthroplasty with appropriate alignment. There is increased lucency along the cement of the tibial stem laterally. This could represent some degree of loosening. 2. Total right knee arthroplasty without evidence of failure.
--- NOTE | ~2023-02-25 | XR_ITS ---
EXAMINATION: XR knee standing BI, XR knee LT 2V, XR knee RT 2V CLINICAL INFORMATION: Pain COMPARISON: 06/04/2017 and 10/10/2020. TECHNIQUE: Standing AP view of both knees. Lateral and sunrise views of the left knee. Lateral and sunrise views of the right knee. FINDINGS: Left knee: Total left knee arthroplasty. Longstem femoral and tibial components. Alignment of the hardware is near-anatomic. No periprosthetic fracture. There is increased lucency along the cement of the tibial stem laterally. This is a change from prior. There is no significant joint effusion. Mild soft tissue swelling. Right knee: Total right knee arthroplasty. The femoral component articulates appropriately with the tibial and patellar components. No periprosthetic lucency or fracture. No joint effusion. XR/XR knee standing BI IMPRESSION: 1. Total left knee arthroplasty with appropriate alignment. There is increased lucency along the cement of the tibial stem laterally. This could represent some degree of loosening. 2. Total right knee arthroplasty without evidence of failure.
--- NOTE | ~2023-02-25 | XR_ITS ---
EXAMINATION: XR knee standing BI, XR knee LT 2V, XR knee RT 2V CLINICAL INFORMATION: Pain COMPARISON: 06/04/2017 and 10/10/2020. TECHNIQUE: Standing AP view of both knees. Lateral and sunrise views of the left knee. Lateral and sunrise views of the right knee. FINDINGS: Left knee: Total left knee arthroplasty. Longstem femoral and tibial components. Alignment of the hardware is near-anatomic. No periprosthetic fracture. There is increased lucency along the cement of the tibial stem laterally. This is a change from prior. There is no significant joint effusion. Mild soft tissue swelling. Right knee: Total right knee arthroplasty. The femoral component articulates appropriately with the tibial and patellar components. No periprosthetic lucency or fracture. No joint effusion. XR/XR knee RT 2V IMPRESSION: 1. Total left knee arthroplasty with appropriate alignment. There is increased lucency along the cement of the tibial stem laterally. This could represent some degree of loosening. 2. Total right knee arthroplasty without evidence of failure.
== END 2023-02-25 08:38 | disposition home or self-care (01) ==
LOC: HO.HOSX 08:37
PROVIDERS: Visit Provider Orthopaedic Surgery
DX: M25.562 Pain in left knee (principal); M25.561 Pain in right knee; Z96.653 Presence of artificial knee joint, bilateral
CPT/HCPCS: 73560; 73565; 99212

== ENCOUNTER 2023-03-02 16:13 | Inpatient (IN) | payer OTHER, MEDICAID, SELFPAY ==
[2023-03-02] VITALS (9 sets, daily range): BP systolic 147–206; BP diastolic 68–91; PULSE 88–106; RESP 18–26; TEMP 36.5–37.4; O2SAT 83–100; BMI 51.7
--- NOTE | ~2023-03-02 | XR_ITS ---
EXAMINATION: XR CHEST CLINICAL INFORMATION: ET tube and NG tube placement COMPARISON: CT 03/02/2023 TECHNIQUE: Frontal view of the chest was obtained. FINDINGS: Endotracheal tube tip lies approximately 2.4 cm above the sukhdev. Enteric tube courses into the stomach. Lung volumes are symmetric. There are somewhat streaky opacities towards the bilateral lung bases. No evidence of pneumothorax or significant pleural effusion. Central vasculature is prominent. Borderline enlarged cardiac silhouette. Calcification is present at the aortic arch. No acute osseous findings are seen. XR/XR chest 1V IMPRESSION: Endotracheal tube tip 2.4 cm above the sukhdev. Enteric tube courses into the stomach. Somewhat streaky bibasilar opacities, which may reflect atelectasis. Prominent central vasculature.
--- NOTE | ~2023-03-02 | XR_ITS ---
EXAMINATION: XR CHEST CLINICAL INFORMATION: Fever COMPARISON: 03/03/2023 TECHNIQUE: Frontal view of the chest was obtained. FINDINGS: The lungs are hypoinflated. Mild bibasilar opacities are noted which may represent atelectasis in this setting. No evidence of pneumothorax. Prominent central catheter without overt edema. Cardiac silhouette remains enlarged. No acute osseous findings are seen. XR/XR chest 1V IMPRESSION: Low lung volumes with mild bibasilar opacities which may represent atelectasis though developing consolidation would be difficult to exclude with fever. Short-term radiographic follow-up is advised.
--- NOTE | ~2023-03-02 | CT_ITS ---
EXAMINATION: CT ANGIOGRAM OF THE CHEST WITH AND WITHOUT CONTRAST (CT PULMONARY ANGIOGRAM FOR PE) CLINICAL INFORMATION: Reason for Exam hypoxic, tachycardic COMPARISON: Noncontrast chest CT from the same day TECHNIQUE: Prior to contrast administration, noncontrast localization images were obtained. Subsequently, multidetector volumetric imaging was performed from the thoracic inlet to below the diaphragms following the administration of 85 mL Omnipaque 350 intravenous contrast. No contrast reaction reported Sagittal, coronal, and MIP oblique sagittal reformatted images were obtained on the CT workstation, uploaded to PACS, and reviewed. This CT examination was performed using dose optimization techniques as appropriate, variously including the following: *Automated exposure control *Adjustment of mA and/or kV according to patient size (this includes techniques or standardized protocols for targeted exams where dose is matched to indication/reason for exam; i.e. extremities or head) *Use of iterative reconstruction technique Total exam dose-length product 545 mGy-cm FINDINGS: QUALITY OF STUDY/CONTRAST BOLUS: Suboptimal. PULMONARY ARTERIES: Significantly limited evaluation due to extensive motion artifact. While no central pulmonary embolus is seen, emboli in the lobar, segmental, or subsegmental vessels cannot be reliably excluded. THORACIC AORTA: Not well evaluated. Scattered atherosclerotic calcifications are noted. LUNG: Significantly limited evaluation due to extensive motion artifact. Subsegmental atelectasis is noted in the bilateral lower lobes and likely in the posterior right upper lobe. PLEURA: No pleural effusion or pneumothorax. MEDIASTINUM: Not well assessed due to motion artifact. No appreciable lymphadenopathy. There is mild cardiomegaly without pericardial effusion. No evidence of septal bowing or right heart strain. CORONARY ARTERY CALCIFICATION: Present CHEST WALL/AXILLA: No axillary or internal mammary lymphadenopathy. OSSEOUS STRUCTURES: Suboptimally assessed due to motion artifact. Degenerative changes are noted in the spine. UPPER ABDOMEN: Unremarkable. No reflux of contrast into the hepatic veins to suggest elevated right heart pressures. CT/CT angio chest PE protocol IMPRESSION: Significantly limited evaluation due to extensive motion artifact. While no central pulmonary embolus is seen, emboli in the lobar, segmental, or subsegmental vessels cannot be excluded. VTE: indeterminate.
--- NOTE | ~2023-03-02 | CT_ITS ---
EXAMINATION: CT CHEST WITHOUT CONTRAST CLINICAL INFORMATION: Evaluate for pneumonia. COMPARISON: Chest radiograph 03/02/2023. TECHNIQUE: Multidetector volumetric CT imaging of the chest was done. Axial MIP volume rendering provided. Sagittal and coronal reformatted images were obtained. This CT examination was performed using dose optimization techniques as appropriate, variously including the following: *Automated exposure control *Adjustment of mA and/or kV according to patient size (this includes techniques or standardized protocols for targeted exams where dose is matched to indication/reason for exam; i.e. extremities or head) *Use of iterative reconstruction technique DLP: 517 mGy-cm FINDINGS: LUNGS: No focal airspace opacity or significant groundglass disease. Central airways are patent. Evaluation of parenchymal details and pulmonary nodules is extremely limited due to motion. No discrete pulmonary mass is noted. MEDIASTINUM: Cardiomegaly. No pericardial effusion. A few prominent mediastinal lymph nodes are noted, for instance measuring 1 cm in short axis anterior to the lower trachea (3:22). Evaluation of the hilar structures, including hilar lymphadenopathy, is very limited due to motion and lack of IV contrast. CORONARY ARTERY CALCIFICATION: Coronary artery calcifications are visualized. PLEURA: No pleural effusion or pneumothorax. AXILLA: Nonspecific asymmetric soft tissue prominence of the left breast (3:28). UPPER ABDOMEN: A 2.2 cm left adrenal nodule measuring 5 Hounsfield units is a stable compared to 04/14/2015, favored to represent an adenoma, for which no imaging follow-up is recommended. OSSEOUS STRUCTURES: Limited examination secondary to motion. No discrete acute or aggressive appearing osseous abnormalities. CT/CT chest wo IV con IMPRESSION: Motion degraded examination. 1. No focal airspace opacity or significant groundglass disease. 2. Asymmetric soft tissue prominence of the left breast, nonspecific. If the patient is due, correlation with mammographic examinations is recommended. 3. Cardiomegaly and coronary calcifications, correlate with cardiovascular risk factors.
--- NOTE | ~2023-03-02 | XR_ITS ---
EXAMINATION: XR CHEST CLINICAL INFORMATION: Shortness of breath and hypoxia. COMPARISON: Chest radiograph 12/03/2018. TECHNIQUE: Frontal view of the chest was obtained. FINDINGS: Stable cardiomegaly. Stable bilateral hilar and right upper mediastinal fullness. Mildly increased diffuse interstitial thickening. No pleural effusion or pneumothorax. No acute osseous abnormalities. XR/XR chest 1V IMPRESSION: Increased interstitial thickening bilaterally raising the possibility of small airways disease or atypical/viral infections in the appropriate clinical context.
--- NOTE | 2023-03-02 07:38 | ECG_ITS ---
Test Reason : sob Blood Pressure : / mmHG Vent. Rate : 108 BPM Atrial Rate : 108 BPM P-R Int : 176 ms QRS Dur : 110 ms QT Int : 380 ms P-R-T Axes : 055 -46 050 degrees QTc Int : 509 ms Sinus tachycardia with Premature atrial complexes Left anterior fascicular block Moderate voltage criteria for LVH, may be normal variant ( R in aVL , Alcides product ) Abnormal ECG When compared with ECG of 02-MAR-2023 20:05, Premature atrial complexes are now Present Referred By: Mary Burrows Electronically Signed By:ANTONIA MARTINES MD
--- NOTE | 2023-03-02 16:15 | ED_ITS ---
HPI - SOB/Dyspnea General Chief Complaint: Dyspnea <CEM Garza - Last Filed: 03/02/23 16:21> Stated Complaint: Low O2 sent from DR office <CEM Garza - Last Filed: 03/02/23 16:21> Time Seen by Provider: 03/02/23 16:32 <CEM Garza - Last Filed: 03/02/23 16:21> Source: patient <Mary Burrows MD - Last Filed: 03/03/23 02:57> Mode of arrival: ambulatory <Mary Burrows MD - Last Filed: 03/03/23 02:57> Limitations: no limitations <Mary Burrows MD - Last Filed: 03/03/23 02:57> History of Present Illness HPI Narrative: Patient comes to the emergency room complaining of shortness of breath. Patient and family report that for about a week, the patient started feeling short of breath. Patient's family tried to convince her to come to the emergency room but patient refused. Yesterday, patient's shortness of breath gradually got much worse. Today, they went to see the primary care physician. Oxygen saturation was 83% on room air. Patient is not oxygen dependent. Patient is states that she is a smoker, according to her she has no history of COPD. Does have history of asthma. On arrival to the ED, patient's oxygen saturation was 83% on room air. Patient was started on nasal cannula. Patient denies chest pain, admits to increased coughing, denies vomiting or diarrhea. <Mary Burrows MD - Last Filed: 03/03/23 02:57> Related Data Home Medications: Home Medications Medication Instructions Recorded Confirmed cholecalciferol (vitamin D3) 1,250 1,250 mcg PO QWEEK 08/08/20 03/02/23 mcg (50,000 unit) capsule Previous Rx's Medication Instructions Recorded ELECTRIC WHEELCHAIR #1 ea 01/12/22 metoprolol tartrate 50 mg tablet 50 mg PO DAILY #90 tabs 07/27/22 albuterol sulfate 90 mcg/actuation 2 puff inhalation Q6H PRN 08/10/22 aerosol inhaler shortness of breath or wheezing 30 days #8.5 grams blood sugar diagnostic #100 ea 09/11/22 coenzyme Q10 100 mg capsule (Co 100 mg PO DAILY 90 days #90 caps 09/11/22 Q-10) donepezil 10 mg tablet 10 mg PO BEDTIME 90 days #90 tabs 09/11/22 ergocalciferol (vitamin D2) 1,250 1,250 mcg PO QWEEK 90 days #13 caps 09/11/22 mcg (50,000 unit) capsule insulin lispro protamine-lispro 50 unit (0.5 mL) subcut BID 90 09/11/22 100 unit/mL (75-25) subcutaneous days #90 mL susp (Humalog Mix 75-25(U-100)Insuln) insulin syringe-needle U-100 1 mL ##60 09/11/22 31 gauge x 5/16 (BD Insulin Syringe Ultra-Fine) levothyroxine 25 mcg tablet 25 mcg PO DAILY #90 tabs 09/11/22 omeprazole 20 mg capsule,delayed 40 mg PO DAILY #180 caps 09/11/22 release loratadine 10 mg capsule 10 mg PO DAILY PRN allergy 09/13/22 symptoms 90 days #90 caps multivitamin 1 tab PO DAILY 90 days #90 tabs 09/13/22 fluticasone propionate 110 2 puff inhalation BID 30 days #12 01/05/23 mcg/actuation HFA aerosol inhaler grams (Flovent HFA) hydrochlorothiazide 12.5 mg tablet 12.5 mg PO DAILY 90 days #90 tabs 01/05/23 rosuvastatin 40 mg tablet 40 mg PO DAILY 90 days #90 tabs 01/27/23 tizanidine 4 mg tablet 4 mg PO BEDTIME PRN muscle 01/28/23 spasm/cramps 90 days #90 tabs blood sugar diagnostic (OneTouch #100 ea 01/29/23 Ultra Test strips) blood-glucose meter (OneTouch #1 ea 01/29/23 Ultra2 Meter kit) insulin syringe-needle U-100 1 mL #10 ea 01/29/23 31 gauge x 5/16 (BD Insulin Syringe Ultra-Fine) meloxicam 15 mg tablet 15 mg PO DAILY #30 tabs 02/02/23 famotidine 20 mg tablet 20 mg PO BID #180 tabs 02/12/23 mometasone 50 mcg/actuation nasal 2 spray intranasal DAILY #51 grams 02/18/23 spray <CEM Garza - Last Filed: 03/02/23 16:21> Allergies/Adverse Reactions: Allergies Allergy/AdvReac Type Severity Reaction Status Date / Time No Known Allergies Allergy Verified 03/02/23 16:08 <CEM Garza - Last Filed: 03/02/23 16:21> Review of Systems Review of Systems: Constitutional : No Weight loss, No Fever, No Chills, No Night Sweats, No Fatigue, No Malaise ENT/Mouth : No Hearing loss, No Ear Pain, No Nasal Congestion, No Sinus Pain, No Hoarseness, No sore throat, No Rhinorrhea, No Swallowing Difficulty Eyes: No Eye Pain, No Swelling, No Redness, No Foreign Body, No Discharge, No Vision Changes Cardiovascular : No Chest Pain, No SOB, complaining of severe dyspnea with exertion, no orthopnea Respiratory : Complaining of cough and increased sputum, complaining of wheezing, complaining of dyspnea Gastrointestinal : No Nausea, No Vomiting, No Diarrhea, No Constipation, No abdominal Pain, No Hematochezia, No Melena Genitourinary : no irregular bleeding, No Dysuria, No Urinary Frequency, No Hematuria, No Urinary Incontinence, No Urgency, No Flank Pain, No Urinary Flow Changes, No Hesitancy Musculoskeletal : No joint pain, No Myalgias, No Joint Swelling Skin : No Skin Lesions, No rash Neuro : No Weakness, No Numbness, No Paresthesias, No Loss of Consciousness, No Dizziness, No Headache Psych : No Anxiety/Panic, No Depression, No SI/HI/AH/VH, No Social Issues, Heme/Lymph: No Bruising, No Bleeding,No Lymphadenopathy Endocrine : No Polyuria, No Polydipsia, No Temperature Intolerance <Mary Burrows MD - Last Filed: 03/03/23 02:57> COUNT INCLUDES THE [facility] Past Medical History Medical History: Medical History Allergic rhinitis Asthma Diabetes mellitus Elevated TSH Essential hypertension GERD (gastroesophageal reflux disease) Memory impairment Morbid obesity with BMI of 45.0-49.9, adult Osteoarthritis Osteoporosis Overactive bladder Pain in left knee Pure hypercholesterolemia Umbilical hernia without obstruction and without gangrene Vitamin D deficiency <CEM Garza - Last Filed: 03/02/23 16:21> Surgical History: Surgical History History of arthroplasty of left knee History of arthroplasty of right knee History of hysterectomy <CEM Garza - Last Filed: 03/02/23 16:21> Family History Family History: Family History Father Diabetes Cancer Mother Diabetes <CEM Garza - Last Filed: 03/02/23 16:21> Social History Social History: Social History Housing: Apartment Alcohol intake: never Patient Tobacco Use Status: Former Tobacco user Smoked in Last 30 Days: No e-Cigarette/Vaping Use: Never Used Second Hand Smoke Exposure: Yes Use of substances other than those prescribed or required for medical reasons: No Advance Directives: No Advance Directives Information Provided: No service: No Current occupational status: disabled Cognitive needs: Yes (cane) Hearing needs: Yes Vision needs: Yes <CEM Garza - Last Filed: 03/02/23 16:21> Physical Exam Vital Signs: Vital Signs: Last Vital Signs Temp 98.6 F 03/02/23 23:45 Pulse 127 H 03/03/23 01:55 Resp 18 03/03/23 01:55 BP 232/126 H 03/03/23 01:55 Pulse Ox 100 03/03/23 01:55 O2 Del Method CPAP 03/02/23 23:45 O2 Flow Rate 5 03/02/23 21:28 Oxygen Flow Rate 6 03/02/23 16:32 BMI result Body Mass Index 51.7 <CEM Garza - Last Filed: 03/02/23 16:21> Vital Signs: Last Vital Signs Temp 98.6 F 03/02/23 23:45 Pulse 127 H 03/03/23 01:55 Resp 18 03/03/23 01:55 BP 232/126 H 03/03/23 01:55 Pulse Ox 100 03/03/23 01:55 O2 Del Method CPAP 03/02/23 23:45 O2 Flow Rate 5 03/02/23 21:28 Oxygen Flow Rate 6 03/02/23 16:32 BMI result Body Mass Index 51.7 <Mary Burrows MD - Last Filed: 03/03/23 02:57> Const: Other: Appearance: Alert. Oriented X3. Eyes: Pupils equal, round and reactive to light. ENT: Pharynx normal. Neck: Normal inspection. Neck supple. No lymph nodes noted. No crepitus CVS: Normal heart rate and rhythm. Pulses normal. Normal S1 and S2 Respiratory: Patient has decreased lung sounds, patient is wheezing, oxygen saturation 92% on 6 L Abdomen: Soft and nontender. No rigidity. No distention. Skin: Skin warm and dry. Normal skin color. Normal skin turgor. Extremities: No lower extremity edema. No Lacerations. No Rash Neuro: Oriented X 3. No motor deficit. No sensory deficit. Moving all extremities. No slurred speech. CN 2 through 12 grossly intact Psych: calm, cooperative, normal affect <Mary Burrows MD - Last Filed: 03/03/23 02:57> Course Course Course Narrative: RME - 82 yo female with history of asthma/COPD (40 pack year history), HLD, morbid obesity, SAVANNAH noncompliant with CPAP, DM, HTN, HLD who presents to the ER from PCP office for evaluation of difficulty breathing and hypoxia. Started having SOB and congested cough last night but was refusing to go to the hospital. Did not sleep all night. Hypoxic to 85% at PCP so sent to the ER. In triage patient audibly wheezy, prolonged exp phase, SpO2 83% with moderate respiratory distress. Plan: main ER now, supplemental O2, IV steroids, Mg++, 10 mg albuterol neb now. labs, CXR and EKG ordered. <CEM Garza - Last Filed: 03/02/23 16:21> Medications Administered Generic Name Dose Route Start Last Admin Trade Name Freq PRN Reason Stop Dose Admin Propofol 1,000 mg in 100 mls @ 0 mls/hr 03/03/23 02:00 03/03/23 01:55 Diprivan IVCONT 30 mcg/kg/min .Q0M ANUJ 19.51 mls/hr Administration Protocol Per Protocol Discontinued Medications Generic Name Dose Route Start Last Admin Trade Name Freq PRN Reason Stop Dose Admin Albuterol Sulfate 10 mg 03/02/23 16:18 03/02/23 16:31 Albuterol Sulfate (0.083%) 2.5 Mg/3 Ml Vial.Neb INHALE 03/02/23 16:19 10 mg ONCE ONE Administration Diphenhydramine HCl 50 mg 03/02/23 20:54 03/02/23 20:57 Diphenhydramine Hcl 50 Mg/Ml Vial IVPUSH 03/02/23 20:55 50 mg ONCE ONE Administration Diphenhydramine HCl 50 mg 03/03/23 01:05 03/03/23 01:17 Diphenhydramine Hcl 50 Mg/Ml Vial IVPUSH 03/03/23 01:06 50 mg ONCE ONE Administration Haloperidol Lactate 5 mg 03/03/23 01:14 03/03/23 01:18 Haloperidol Lactate 5 Mg/Ml Vial IM 03/03/23 01:15 5 mg STAT STA Administration Magnesium Sulfate 2 gm in 50 mls @ 25 mls/hr 03/02/23 16:18 03/02/23 17:03 Magnesium Sulfate/H2o IV 03/02/23 18:17 25 mls/hr ONCE ONE Administration Ceftriaxone Sodium 1 gm/ 50 mls @ 100 mls/hr 03/02/23 20:29 03/02/23 23:52 Sodium Chloride IV 03/02/23 20:58 Infused ONCE ONE Infusion Azithromycin 500 mg/ Sodium 250 mls @ 125 mls/hr 03/02/23 20:29 03/02/23 22:06 Chloride IV 03/02/23 22:28 125 mls/hr ONCE ONE Administration Iohexol 85 ml 03/02/23 23:34 03/02/23 23:35 Iohexol 350 Mg/Ml 100 Ml Infus..Btl IV 03/02/23 23:35 85 ml ONCE ONE Administration Lorazepam 2 mg 03/02/23 20:43 03/02/23 20:46 Lorazepam 2 Mg/Ml Vial IVPUSH 03/02/23 20:44 2 mg ONCE ONE Administration Lorazepam 1 mg 03/02/23 20:54 03/02/23 20:57 Lorazepam 2 Mg/Ml Vial IVPUSH 03/02/23 20:55 1 mg ONCE ONE Administration Lorazepam 2 mg 03/03/23 01:05 03/03/23 01:17 Lorazepam 2 Mg/Ml Vial IVPUSH 03/03/23 01:06 2 mg ONCE ONE Administration Methylprednisolone Sodium Succinate 125 mg 03/02/23 16:18 03/02/23 17:03 Methylprednisolone Sod Succ 125 Mg/2 Ml Vial IVPUSH 03/02/23 16:19 125 mg ONCE ONE Administration Scopolamine 1.5 mg 03/02/23 22:49 03/02/23 23:49 Scopolamine 1.5 Mg Patch.Td.3 EAR-BEHIND 03/02/23 22:50 1.5 mg ONCE ONE Administration <CEM Garza - Last Filed: 03/02/23 16:21> Medications Administered Generic Name Dose Route Start Last Admin Trade Name Freq PRN Reason Stop Dose Admin Propofol 1,000 mg in 100 mls @ 0 mls/hr 03/03/23 02:00 03/03/23 01:55 Diprivan IVCONT 30 mcg/kg/min .Q0M ANUJ 19.51 mls/hr Administration Protocol Per Protocol Discontinued Medications Generic Name Dose Route Start Last Admin Trade Name Freq PRN Reason Stop Dose Admin Albuterol Sulfate 10 mg 03/02/23 16:18 03/02/23 16:31 Albuterol Sulfate (0.083%) 2.5 Mg/3 Ml Vial.Neb INHALE 03/02/23 16:19 10 mg ONCE ONE Administration Diphenhydramine HCl 50 mg 03/02/23 20:54 03/02/23 20:57 Diphenhydramine Hcl 50 Mg/Ml Vial IVPUSH 03/02/23 20:55 50 mg ONCE ONE Administration Diphenhydramine HCl 50 mg 03/03/23 01:05 03/03/23 01:17 Diphenhydramine Hcl 50 Mg/Ml Vial IVPUSH 03/03/23 01:06 50 mg ONCE ONE Administration Haloperidol Lactate 5 mg 03/03/23 01:14 03/03/23 01:18 Haloperidol Lactate 5 Mg/Ml Vial IM 03/03/23 01:15 5 mg STAT STA Administration Magnesium Sulfate 2 gm in 50 mls @ 25 mls/hr 03/02/23 16:18 03/02/23 17:03 Magnesium Sulfate/H2o IV 03/02/23 18:17 25 mls/hr ONCE ONE Administration Ceftriaxone Sodium 1 gm/ 50 mls @ 100 mls/hr 03/02/23 20:29 03/02/23 23:52 Sodium Chloride IV 03/02/23 20:58 Infused ONCE ONE Infusion Azithromycin 500 mg/ Sodium 250 mls @ 125 mls/hr 03/02/23 20:29 03/02/23 22:06 Chloride IV 03/02/23 22:28 125 mls/hr ONCE ONE Administration Iohexol 85 ml 03/02/23 23:34 03/02/23 23:35 Iohexol 350 Mg/Ml 100 Ml Infus..Btl IV 03/02/23 23:35 85 ml ONCE ONE Administration Lorazepam 2 mg 03/02/23 20:43 03/02/23 20:46 Lorazepam 2 Mg/Ml Vial IVPUSH 03/02/23 20:44 2 mg ONCE ONE Administration Lorazepam 1 mg 03/02/23 20:54 03/02/23 20:57 Lorazepam 2 Mg/Ml Vial IVPUSH 03/02/23 20:55 1 mg ONCE ONE Administration Lorazepam 2 mg 03/03/23 01:05 03/03/23 01:17 Lorazepam 2 Mg/Ml Vial IVPUSH 03/03/23 01:06 2 mg ONCE ONE Administration Methylprednisolone Sodium Succinate 125 mg 03/02/23 16:18 03/02/23 17:03 Methylprednisolone Sod Succ 125 Mg/2 Ml Vial IVPUSH 03/02/23 16:19 125 mg ONCE ONE Administration Scopolamine 1.5 mg 03/02/23 22:49 03/02/23 23:49 Scopolamine 1.5 Mg Patch.Td.3 EAR-BEHIND 03/02/23 22:50 1.5 mg ONCE ONE Administration <Mary Burrows MD - Last Filed: 03/03/23 02:57> Medical Decision Making Medical Decision Making MDM Narrative: -patient receive IV magnesium, 2 hour long nebulization treatments -patient receiving azithromycin and ceftriaxone. Patient does not have fever, blood pressure is normal. Lactic acid normal. At this time 20:40, sepsis is not suspected. X-ray is not conclusive. Shows atypical versus viral infection. -patient's troponin is 240 and the 2nd troponin is 193.8, no EKGs abnormalities, likely secondary to demand ischemia from being hypoxic -EKG my interpretation: Sinus rhythm, heart rate 88, incomplete right bundle- branch block, QTC 457, significant artifact on EKG difficult to interpret. -my interpretation of chest x-ray: No definite infiltrate -CT scan of the chest : No pneumonia. Unclear why patient is hypoxic. We will go ahead and order a CTA to rule out pulmonary embolism. -throughout the past few hours, patient becoming more tachypneic. -patient was started on CPAP, oxygen saturation in the low to mid 90s. -I discussed the patient with Dr. Burroughs, patient being admitted. Patient will be on CPAP with us in the ED for couple of hours and then she will be weaned off. -CTA negative for PE. Due to motion artifact, subsegmental pulmonary embolisms could not be ruled out. Patient was started on CPAP, patient uses CPAP at night to sleep, patient more relaxed, heart rate 100, oxygen saturation 94. Is possible that patient may have undiagnosed COPD -patient was initially weaned off CPAP. Patient became very combative, venous blood gas shows the patient is retaining pCO2, likely does have COPD. Patient is BiPAP appear patient very combative, were trying to avoid intubation. Patient was given IM Haldol, IV Benadryl and Ativan. If patient can tolerate BiPAP, we will keep her for couple hours until the PCO to trend down. Dr Burroughs aware -patient became agitated, combative, and then minimally responsive, not following directions. With attempted sedating the patient tube to help her tolerate the BiPAP. However, she did not tolerate it, oxygen saturation dropped to the mid 60s. Patient needed to be intubated. -at this time, we do not have ICU beds/nurses, but we will in a few hours , confirmed per nursing medical supervisor. I discussed the patient with Dr. Colón, patient will be admitted to the ICU at 7am, in the meantime, patient will be managed in the ED. I discussed the patient with Dr. Wan. Pt is intubated but stable at this time. -patient has 2 guidelines, 1 in the left arm, and 1 in the left internal jugular. Patient blood pressure high, at this time, pressors/central line not i ndicated. -sign-out given to Dr. Wan -I called the patient's daughter who is in the patient's medical chart, Elayne Bruce. Did not [employer] the phone. Left a message to call back. <Mary Burrows MD - Last Filed: 03/03/23 02:57> Differential Diagnosis Differential Diagnoses: The differential diagnosis associated with the presentation includes (Asthma, COPD, pneumonia, pulmonary embolism) <Mary Burrows MD - Last Filed: 03/03/23 02:57> Admission/Observation Consideration of admission/observation: Escalation of care including admission/observation considered <Mary Burrows MD - Last Filed: 03/03/23 02:57> Consult Healthcare Provider Management of the patient was discussed with: Hospitalist <Mary Burrows MD - Last Filed: 03/03/23 02:57> Lab Data MDM Lab Attestation statement: I reviewed the patient's lab results. <Mary Burrows MD - Last Filed: 03/03/23 02:57> Result Diagrams: 03/02/23 18:17 03/02/23 18:17 <CEM Garza - Last Filed: 03/02/23 16:21> Labs: Lab Results 03/02/23 03/02/23 03/02/23 Range/Units 16:42 16:43 16:43 WBC (4.8-10.8) X10*3/uL RBC (4.20-5.50) X10*6/uL Hgb (12.0-16.0) g/dl Hct (37.0-47.0) % MCV (80.0-98.0) fL MCH (27.0-33.0) pg MCHC (31.0-35.0) g/dl RDW (11.0-16.0) % Plt Count (160-400) X10*3/uL MPV (9.4-12.3) fL Immature Gran % (Auto) (0.0-0.4) % Neut % (Auto) (45-73) % Lymph % (Auto) (20-40) % [place] % (Auto) (2-11) % Eos % (Auto) (0-4) % Baso % (Auto) (0-2) % Lymph # (Auto) (1.2-4.9) X10*3/uL [place] # (Auto) (0.1-1.2) X10*3/uL Eos # (Auto) (0.0-0.4) X10*3/uL Baso # (Auto) (0.0-0.2) X10*3/uL Abs Immat Gran (auto) (0.00-0.03) X10*3/uL Absolute Neuts (auto) (2.0-8.3) x10*3/uL Absolute Nucleated RBC (0.0-0.012) X10*3/uL Nucleated RBC % (auto) (0.0-0.2) /100WBC VBG pH (7.32-7.43) VBG pCO2 mmHg VBG pO2 mmHg VBG HCO3 (22-26) mmol/L VBG O2 Saturation % VBG Base Excess mmol/L Sodium (135-145) mmol/L Potassium (3.3-5.1) mmol/L Chloride (96-108) mmol/L Carbon Dioxide (22-29) mmol/L Anion Gap (12-20) BUN (9-16) mg/dL Creatinine (0.5-1.4) mg/dL Estim Creat Clear Calc Estimated GFR Random Glucose (60-115) mg/dL Lactic Acid 1.9 (0.5-2.0) mmol/L Calcium (8.4-10.2) mg/dL Magnesium (1.6-2.6) mg/dL Total Bilirubin (0.0-1.0) mg/dL Direct Bilirubin (0.0-0.5) mg/dL AST (5-31) U/L ALT (0-31) U/L Alkaline Phosphatase (39-117) U/L Troponin I High Sens 240.7 H* (<3.5-17.0) ng/L B-Natriuretic Peptide 163 H (<100) pg/mL Total Protein (6.5-8.0) g/dL Albumin (3.5-5.0) g/dL Procalcitonin ng/mL COVID-19 (REGLA) (Negative) COVID-19 Clin Com 03/02/23 03/02/23 03/02/23 Range/Units 17:03 18:17 18:17 WBC 13.1 H (4.8-10.8) X10*3/uL RBC 4.63 (4.20-5.50) X10*6/uL Hgb 12.0 (12.0-16.0) g/dl Hct 39.8 (37.0-47.0) % MCV 86.0 (80.0-98.0) fL MCH 25.9 L (27.0-33.0) pg MCHC 30.2 L (31.0-35.0) g/dl RDW 15.3 (11.0-16.0) % Plt Count 230 (160-400) X10*3/uL MPV 10.2 (9.4-12.3) fL Immature Gran % (Auto) 0.3 (0.0-0.4) % Neut % (Auto) 84.6 H (45-73) % Lymph % (Auto) 11.3 L (20-40) % [place] % (Auto) 2.8 (2-11) % Eos % (Auto) 0.8 (0-4) % Baso % (Auto) 0.2 (0-2) % Lymph # (Auto) 1.5 (1.2-4.9) X10*3/uL [place] # (Auto) 0.4 (0.1-1.2) X10*3/uL Eos # (Auto) 0.1 (0.0-0.4) X10*3/uL Baso # (Auto) 0.0 (0.0-0.2) X10*3/uL Abs Immat Gran (auto) 0.04 H (0.00-0.03) X10*3/uL Absolute Neuts (auto) 11.1 H (2.0-8.3) x10*3/uL Absolute Nucleated RBC 0.000 (0.0-0.012) X10*3/uL Nucleated RBC % (auto) 0.0 (0.0-0.2) /100WBC VBG pH (7.32-7.43) VBG pCO2 mmHg VBG pO2 mmHg VBG HCO3 (22-26) mmol/L VBG O2 Saturation % VBG Base Excess mmol/L Sodium 144 (135-145) mmol/L Potassium 3.9 (3.3-5.1) mmol/L Chloride 103 (96-108) mmol/L Carbon Dioxide 29 (22-29) mmol/L Anion Gap 16 (12-20) BUN 18 H (9-16) mg/dL Creatinine 0.97 (0.5-1.4) mg/dL Estim Creat Clear Calc 47.7 Estimated GFR 55 Random Glucose 198 H (60-115) mg/dL Lactic Acid (0.5-2.0) mmol/L Calcium 9.4 (8.4-10.2) mg/dL Magnesium 2.3 (1.6-2.6) mg/dL Total Bilirubin 0.6 (0.0-1.0) mg/dL Direct Bilirubin 0.3 (0.0-0.5) mg/dL AST 19 (5-31) U/L ALT 13 (0-31) U/L Alkaline Phosphatase 95 (39-117) U/L Troponin I High Sens (<3.5-17.0) ng/L B-Natriuretic Peptide (<100) pg/mL Total Protein 7.3 (6.5-8.0) g/dL Albumin 4.0 (3.5-5.0) g/dL Procalcitonin 0.07 ng/mL COVID-19 (REGLA) Negative (Negative) COVID-19 Clin Com See Note 03/02/23 03/02/23 Range/Units 18:21 20:01 WBC (4.8-10.8) X10*3/uL RBC (4.20-5.50) X10*6/uL Hgb (12.0-16.0) g/dl Hct (37.0-47.0) % MCV (80.0-98.0) fL MCH (27.0-33.0) pg MCHC (31.0-35.0) g/dl RDW (11.0-16.0) % Plt Count (160-400) X10*3/uL MPV (9.4-12.3) fL Immature Gran % (Auto) (0.0-0.4) % Neut % (Auto) (45-73) % Lymph % (Auto) (20-40) % [place] % (Auto) (2-11) % Eos % (Auto) (0-4) % Baso % (Auto) (0-2) % Lymph # (Auto) (1.2-4.9) X10*3/uL [place] # (Auto) (0.1-1.2) X10*3/uL Eos # (Auto) (0.0-0.4) X10*3/uL Baso # (Auto) (0.0-0.2) X10*3/uL Abs Immat Gran (auto) (0.00-0.03) X10*3/uL Absolute Neuts (auto) (2.0-8.3) x10*3/uL Absolute Nucleated RBC (0.0-0.012) X10*3/uL Nucleated RBC % (auto) (0.0-0.2) /100WBC VBG pH 7.28 L (7.32-7.43) VBG pCO2 67 mmHg VBG pO2 54 mmHg VBG HCO3 32 H (22-26) mmol/L VBG O2 Saturation 79.0 % VBG Base Excess 3.9 mmol/L Sodium (135-145) mmol/L Potassium (3.3-5.1) mmol/L Chloride (96-108) mmol/L Carbon Dioxide (22-29) mmol/L Anion Gap (12-20) BUN (9-16) mg/dL Creatinine (0.5-1.4) mg/dL Estim Creat Clear Calc Estimated GFR Random Glucose (60-115) mg/dL Lactic Acid (0.5-2.0) mmol/L Calcium (8.4-10.2) mg/dL Magnesium (1.6-2.6) mg/dL Total Bilirubin (0.0-1.0) mg/dL Direct Bilirubin (0.0-0.5) mg/dL AST (5-31) U/L ALT (0-31) U/L Alkaline Phosphatase (39-117) U/L Troponin I High Sens 193.8 H* (<3.5-17.0) ng/L B-Natriuretic Peptide (<100) pg/mL Total Protein (6.5-8.0) g/dL Albumin (3.5-5.0) g/dL Procalcitonin ng/mL COVID-19 (REGLA) (Negative) COVID-19 Clin Com <CEM Garza - Last Filed: 03/02/23 16:21> Lab Results 03/02/23 03/02/23 03/02/23 Range/Units 16:42 16:43 16:43 WBC (4.8-10.8) X10*3/uL RBC (4.20-5.50) X10*6/uL Hgb (12.0-16.0) g/dl Hct (37.0-47.0) % MCV (80.0-98.0) fL MCH (27.0-33.0) pg MCHC (31.0-35.0) g/dl RDW (11.0-16.0) % Plt Count (160-400) X10*3/uL MPV (9.4-12.3) fL Immature Gran % (Auto) (0.0-0.4) % Neut % (Auto) (45-73) % Lymph % (Auto) (20-40) % [place] % (Auto) (2-11) % Eos % (Auto) (0-4) % Baso % (Auto) (0-2) % Lymph # (Auto) (1.2-4.9) X10*3/uL [place] # (Auto) (0.1-1.2) X10*3/uL Eos # (Auto) (0.0-0.4) X10*3/uL Baso # (Auto) (0.0-0.2) X10*3/uL Abs Immat Gran (auto) (0.00-0.03) X10*3/uL Absolute Neuts (auto) (2.0-8.3) x10*3/uL Absolute Nucleated RBC (0.0-0.012) X10*3/uL Nucleated RBC % (auto) (0.0-0.2) /100WBC VBG pH (7.32-7.43) VBG pCO2 mmHg VBG pO2 mmHg VBG HCO3 (22-26) mmol/L VBG O2 Saturation % VBG Base Excess mmol/L Sodium (135-145) mmol/L Potassium (3.3-5.1) mmol/L Chloride (96-108) mmol/L Carbon Dioxide (22-29) mmol/L Anion Gap (12-20) BUN (9-16) mg/dL Creatinine (0.5-1.4) mg/dL Estim Creat Clear Calc Estimated GFR Random Glucose (60-115) mg/dL Lactic Acid 1.9 (0.5-2.0) mmol/L Calcium (8.4-10.2) mg/dL Magnesium (1.6-2.6) mg/dL Total Bilirubin (0.0-1.0) mg/dL Direct Bilirubin (0.0-0.5) mg/dL AST (5-31) U/L ALT (0-31) U/L Alkaline Phosphatase (39-117) U/L Troponin I High Sens 240.7 H* (<3.5-17.0) ng/L B-Natriuretic Peptide 163 H (<100) pg/mL Total Protein (6.5-8.0) g/dL Albumin (3.5-5.0) g/dL Procalcitonin ng/mL COVID-19 (REGLA) (Negative) COVID-19 Clin Com 03/02/23 03/02/23 03/02/23 Range/Units 17:03 18:17 18:17 WBC 13.1 H (4.8-10.8) X10*3/uL RBC 4.63 (4.20-5.50) X10*6/uL Hgb 12.0 (12.0-16.0) g/dl Hct 39.8 (37.0-47.0) % MCV 86.0 (80.0-98.0) fL MCH 25.9 L (27.0-33.0) pg MCHC 30.2 L (31.0-35.0) g/dl RDW 15.3 (11.0-16.0) % Plt Count 230 (160-400) X10*3/uL MPV 10.2 (9.4-12.3) fL Immature Gran % (Auto) 0.3 (0.0-0.4) % Neut % (Auto) 84.6 H (45-73) % Lymph % (Auto) 11.3 L (20-40) % [place] % (Auto) 2.8 (2-11) % Eos % (Auto) 0.8 (0-4) % Baso % (Auto) 0.2 (0-2) % Lymph # (Auto) 1.5 (1.2-4.9) X10*3/uL [place] # (Auto) 0.4 (0.1-1.2) X10*3/uL Eos # (Auto) 0.1 (0.0-0.4) X10*3/uL Baso # (Auto) 0.0 (0.0-0.2) X10*3/uL Abs Immat Gran (auto) 0.04 H (0.00-0.03) X10*3/uL Absolute Neuts (auto) 11.1 H (2.0-8.3) x10*3/uL Absolute Nucleated RBC 0.000 (0.0-0.012) X10*3/uL Nucleated RBC % (auto) 0.0 (0.0-0.2) /100WBC VBG pH (7.32-7.43) VBG pCO2 mmHg VBG pO2 mmHg VBG HCO3 (22-26) mmol/L VBG O2 Saturation % VBG Base Excess mmol/L Sodium 144 (135-145) mmol/L Potassium 3.9 (3.3-5.1) mmol/L Chloride 103 (96-108) mmol/L Carbon Dioxide 29 (22-29) mmol/L Anion Gap 16 (12-20) BUN 18 H (9-16) mg/dL Creatinine 0.97 (0.5-1.4) mg/dL Estim Creat Clear Calc 47.7 Estimated GFR 55 Random Glucose 198 H (60-115) mg/dL Lactic Acid (0.5-2.0) mmol/L Calcium 9.4 (8.4-10.2) mg/dL Magnesium 2.3 (1.6-2.6) mg/dL Total Bilirubin 0.6 (0.0-1.0) mg/dL Direct Bilirubin 0.3 (0.0-0.5) mg/dL AST 19 (5-31) U/L ALT 13 (0-31) U/L Alkaline Phosphatase 95 (39-117) U/L Troponin I High Sens (<3.5-17.0) ng/L B-Natriuretic Peptide (<100) pg/mL Total Protein 7.3 (6.5-8.0) g/dL Albumin 4.0 (3.5-5.0) g/dL Procalcitonin 0.07 ng/mL COVID-19 (REGLA) Negative (Negative) COVID-19 Clin Com See Note 03/02/23 03/02/23 Range/Units 18:21 20:01 WBC (4.8-10.8) X10*3/uL RBC (4.20-5.50) X10*6/uL Hgb (12.0-16.0) g/dl Hct (37.0-47.0) % MCV (80.0-98.0) fL MCH (27.0-33.0) pg MCHC (31.0-35.0) g/dl RDW (11.0-16.0) % Plt Count (160-400) X10*3/uL MPV (9.4-12.3) fL Immature Gran % (Auto) (0.0-0.4) % Neut % (Auto) (45-73) % Lymph % (Auto) (20-40) % [place] % (Auto) (2-11) % Eos % (Auto) (0-4) % Baso % (Auto) (0-2) % Lymph # (Auto) (1.2-4.9) X10*3/uL [place] # (Auto) (0.1-1.2) X10*3/uL Eos # (Auto) (0.0-0.4) X10*3/uL Baso # (Auto) (0.0-0.2) X10*3/uL Abs Immat Gran (auto) (0.00-0.03) X10*3/uL Absolute Neuts (auto) (2.0-8.3) x10*3/uL Absolute Nucleated RBC (0.0-0.012) X10*3/uL Nucleated RBC % (auto) (0.0-0.2) /100WBC VBG pH 7.28 L (7.32-7.43) VBG pCO2 67 mmHg VBG pO2 54 mmHg VBG HCO3 32 H (22-26) mmol/L VBG O2 Saturation 79.0 % VBG Base Excess 3.9 mmol/L Sodium (135-145) mmol/L Potassium (3.3-5.1) mmol/L Chloride (96-108) mmol/L Carbon Dioxide (22-29) mmol/L Anion Gap (12-20) BUN (9-16) mg/dL Creatinine (0.5-1.4) mg/dL Estim Creat Clear Calc Estimated GFR Random Glucose (60-115) mg/dL Lactic Acid (0.5-2.0) mmol/L Calcium (8.4-10.2) mg/dL Magnesium (1.6-2.6) mg/dL Total Bilirubin (0.0-1.0) mg/dL Direct Bilirubin (0.0-0.5) mg/dL AST (5-31) U/L ALT (0-31) U/L Alkaline Phosphatase (39-117) U/L Troponin I High Sens 193.8 H* (<3.5-17.0) ng/L B-Natriuretic Peptide (<100) pg/mL Total Protein (6.5-8.0) g/dL Albumin (3.5-5.0) g/dL Procalcitonin ng/mL COVID-19 (REGLA) (Negative) COVID-19 Clin Com <Mary Burrows MD - Last Filed: 03/03/23 02:57> Independent Interpretation I performed an independent interpretation of an: CT Scan (My interpretation of CTA of the chest: No obvious pulmonary embolisms) <Mary Burrows MD - Last Filed: 03/03/23 02:57> Radiology Impression Discussion of test interpretation with radiology: I have reviewed the radiologist's reading. <Mary Burrows MD - Last Filed: 03/03/23 02:57> Radiologist Impression: FINDINGS: QUALITY OF STUDY/CONTRAST BOLUS: Suboptimal. PULMONARY ARTERIES: Significantly limited evaluation due to extensive motion artifact. While no central pulmonary embolus is seen, emboli in the lobar, segmental, or subsegmental vessels cannot be reliably excluded.? THORACIC AORTA: Not well evaluated. Scattered atherosclerotic calcifications are noted. LUNG: Significantly limited evaluation due to extensive motion artifact. Subsegmental atelectasis is noted in the bilateral lower lobes and likely in the posterior right upper lobe. PLEURA: No pleural effusion or pneumothorax. MEDIASTINUM: Not well assessed due to motion artifact. No appreciable lymphadenopathy. There is mild cardiomegaly without pericardial effusion. No evidence of septal bowing or right heart strain. CORONARY ARTERY CALCIFICATION: Present CHEST WALL/AXILLA: No axillary or internal mammary lymphadenopathy. OSSEOUS STRUCTURES: Suboptimally assessed due to motion artifact. Degenerative changes are noted in the spine.? UPPER ABDOMEN: Unremarkable. No reflux of contrast into the hepatic veins to suggest elevated right heart pressures. CT/CT angio chest PE protocol IMPRESSION: Significantly limited evaluation due to extensive motion artifact. While no central pulmonary embolus is seen, emboli in the lobar, segmental, or subsegmental vessels cannot be excluded. ? VTE: indeterminate. <Mary Burrows MD - Last Filed: 03/03/23 02:57> Critical Care Time Critical Care Time Critical Care Time: Yes <Mary Burrows MD - Last Filed: 03/03/23 02:57> Total Critical Care Time: 120 <Mary Burrows MD - Last Filed: 03/03/23 02:57> Attestation: I have personally provided critical care time. Time includes review of lab data, radiology results, discussion with consultants, and monitoring for potential decompensation. Intervention performed as documented. <Mary Burrows MD - Last Filed: 03/03/23 02:57> Discharge Plan Discharge Clinical Impression: Respiratory failure, Hypoxic <CEM Garza - Last Filed: 03/02/23 16:21> Patient Disposition: Admitted As Inpatient <CEM Garza - Last Filed: 03/02/23 16:21>
--- NOTE | 2023-03-02 16:18 | ECG_ITS ---
Test Reason : sob Blood Pressure : / mmHG Vent. Rate : 088 BPM Atrial Rate : 000 BPM P-R Int : 000 ms QRS Dur : 104 ms QT Int : 378 ms P-R-T Axes : 000 -40 047 degrees QTc Int : 457 ms Poor data quality Normal sinus rhythm Left axis deviation Abnormal ECG When compared with ECG of 03-DEC-2018 11:31, Poor data quality in current ECG precludes serial comparison Repeat EKG Referred By: Maame Stone Electronically Signed By:ANTONIA MARTINES MD
[2023-03-02] MEDS: Albuterol Sulfate (0.083%) 2.5 MG/3 ML VIAL.NEB 10 MG INHALE (16:31)
[2023-03-02 17:03] LABS: Lactic Acid 1.9 mmol/L (0.5-2.0)
[2023-03-02] MEDS: methylPREDNISolone Sod Succ 125 MG/2 ML VIAL IVPUSH (17:03)
[2023-03-02] MEDS: Magnesium Sulfate/H2O 2 GM/50 ML PIGGYBACK IV (17:03)
--- NOTE | 2023-03-02 17:03 | PC.RT ---
pt admited with increased sob. 10 m albuterol neb tx given. Pt states she had a sleep study in the past and qualified for a cpap machine at home but refuses to wear it at home.
--- NOTE | 2023-03-02 17:04 | PC.NURSE ---
Pt alert/oriented. Pakistani speaking., Dyspnea, tachypneic with audible expiratory wheezing. States feeling unwell since last night per daughter with. +cough. Skin warm, dry, color normal for ethnicity. LS coarse with I/E wheezing. Receiving updraft at this time. NSR on monitor. IV established, medicated as charted
[2023-03-02 17:13] LABS: B Type Natriuretic Peptide 163 pg/mL (<100)
[2023-03-02 17:33] LABS: Troponin-I High Sensitivity 240.7 ng/L (<3.5-17.0)
[2023-03-02 17:38] LABS: COVID-19 Test Negative (Negative); IDNOW Serial# BCCEAD1C
[2023-03-02 18:27] LABS: MANUAL DIFF FLAG NO
[2023-03-02 18:28] LABS: Venous Blood Gas Refer to POC result
[2023-03-02 18:29] LABS: VBG Base Excess 3.9 mmol/L; VBG HCO3 32 mmol/L (22-26); VBG pCO2 67 mmHg; VBG pH 7.28 (7.32-7.43); VBG pO2 54 mmHg
[2023-03-02 18:34] LABS: Basophils Percent Auto 0.2 % (0-2); Eosinophils Absolute Auto 0.1 X10*3/uL (0.0-0.4); Eosinophils Percent Auto 0.8 % (0-4); Hematocrit 39.8 % (37.0-47.0); Imm Gran Abs Auto 0.04 X10*3/uL (0.00-0.03); Imm Gran Pct Auto 0.3 % (0.0-0.4); Lymphocytes Absolute Auto 1.5 X10*3/uL (1.2-4.9); Lymphocytes Percent Auto 11.3 % (20-40); Mean Corpuscular HGB Conc 30.2 g/dl (31.0-35.0); Mean Corpuscular Hemoglobin 25.9 pg (27.0-33.0); Mean Platelet Volume 10.2 fL (9.4-12.3); Monocytes Absolute Auto 0.4 X10*3/uL (0.1-1.2); Monocytes Percent Auto 2.8 % (2-11); Neutrophils Absolute Auto 11.1 x10*3/uL (2.0-8.3); Neutrophils Percent Auto 84.6 % (45-73); Platelet Count 230 X10*3/uL (160-400); Red Blood Count 4.63 X10*6/uL (4.20-5.50); Red Cell Distribution Width 15.3 % (11.0-16.0); White Blood Count 13.1 X10*3/uL (4.8-10.8)
[2023-03-02 18:52] LABS: Alanine Aminotransferase 13 U/L (0-31); Alkaline Phosphatase 95 U/L (39-117); Anion Gap 16 (12-20); Aspartate Amino Transferase 19 U/L (5-31); Bilirubin Direct 0.3 mg/dL (0.0-0.5); Bilirubin Total 0.6 mg/dL (0.0-1.0); Blood Urea Nitrogen 18 mg/dL (9-16); Calcium 9.4 mg/dL (8.4-10.2); Carbon Dioxide 29 mmol/L (22-29); Chloride 103 mmol/L (96-108); Creatinine Clr Calc Pharmacy 47.7; Estimated Glomerular Filt Rate 55; Glucose Random 198 mg/dL (60-115); Magnesium 2.3 mg/dL (1.6-2.6); Potassium 3.9 mmol/L (3.3-5.1); Sodium 144 mmol/L (135-145); Total Protein 7.3 g/dL (6.5-8.0)
--- NOTE | 2023-03-02 18:57 | PHA.MEDREC ---
Pharmacy Consult ? Medication Reconciliation Pharmacy has completed the medication reconciliation. Patient's duaghter confirmed all medications. Patient daughter report levothryoxine even though there is no claim history for patient and metoprolol tartate last fill may 2022. Paola Lombardo, PharmD
[2023-03-02 19:07] LABS: Procalcitonin 0.07 ng/mL
--- NOTE | 2023-03-02 20:10 | MHC.EDTECH ---
report given to this tech writer at 1900. EKG not done at that time. Pt went to CT scan shortly after 1900 . EKG done @2004
[2023-03-02 20:29] LABS: Troponin-I High Sensitivity 193.8 ng/L (<3.5-17.0)
[2023-03-02] MEDS: LORazepam 2 MG/ML VIAL IVPUSH (20:46)
[2023-03-02] MEDS: LORazepam 2 MG/ML VIAL 1 MG IVPUSH (20:57)
[2023-03-02] MEDS: diphenhydrAMINE HCL 50 MG/ML VIAL IVPUSH (20:57)
[2023-03-02] MEDS: cefTRIAXone sodium 1 GM in 0.9 % Sodium Chloride 50 ML IV (21:14)
--- NOTE | 2023-03-02 21:18 | PC.NURSE ---
Called pharmacy and spoke to Gamal, override medication under did pt, medication given and scanned to correct pt.
--- NOTE | 2023-03-02 21:19 | PC.NURSE ---
Per Susan Sanchez, Benadryl given to assist with respiratory rate, pt on monitor improvement on respiration from 35 tp 23. Will continue to monitor.
--- NOTE | 2023-03-02 21:25 | PC.NURSE ---
pt medicated per mar. Will continue to monitor
[2023-03-02] MEDS: Azithromycin 500 MG in 0.9 % Sodium Chloride 250 ML 125 MG IV (22:06)
--- NOTE | 2023-03-02 22:08 | PC.NURSE ---
antibx late due to prior antibx completion and pt only having one iv access.
[2023-03-02] MEDS: iohexoL 350 MG/ML 100 ML INFUS..BTL 85 ML IV (23:35)
[2023-03-02] MEDS: Scopolamine 1.5 MG PATCH.TD.3 EAR-BEHIND (23:49)
--- NOTE | 2023-03-02 23:52 | PC.NURSE ---
Pt back from ct scan. placed on cpap machine. scopolamine patch placed behind right ear. no signs of distress. Will continue to monitor.
[2023-03-03] VITALS (55 sets, daily range): BP systolic 88–266; BP diastolic 29–140; PULSE 76–187; RESP 14–19; TEMP 28.8–38.3; O2SAT 92–100
--- NOTE | 2023-03-03 00:30 | PC.NURSE ---
Pt resting in bed on cpap, no sign of distress, Daughter at the bedside.
[2023-03-03] MEDS: diphenhydrAMINE HCL 50 MG/ML VIAL IVPUSH (01:17)
[2023-03-03] MEDS: LORazepam 2 MG/ML VIAL IVPUSH (01:17)
[2023-03-03] MEDS: Haloperidol Lactate 5 MG/ML VIAL IM (01:18)
[2023-03-03] MEDS: propofoL 1,000 MG/100 ML VIAL 19.51 MG IVCONT ×2 (01:55→12:12)
--- NOTE | 2023-03-03 02:07 | PC.NURSE ---
IV in right forearm infiltrated removed.
--- NOTE | 2023-03-03 02:19 | MHC.EDTECH ---
Pt resting ,vitals taken bp taken on left ankle
[2023-03-03] MEDS: Etomidate 20 MG/10 ML VIAL IVPUSH (02:24)
[2023-03-03] MEDS: Rocuronium Bromide 50 MG/5 ML VIAL 100 MG IVPUSH (02:24)
--- NOTE | 2023-03-03 02:35 | PC.NURSE ---
Pt in respiratory distress, medicated prior to assist with respiratory status, pt declining, provider into assess pt with respiratory pt moved to room 4 from 1, at 0141 pt sat up, bagging pt for respiratory assistance, bp 189/97, hr117 29r and 100 O2, 0142am 20mg of etomidate in and flushed 0143 darian 100mg in and flushed 0143 first attempt for intubation 0144 switching to 7size tube, respiratory jesse bagging pt. 0145 re-attempt intubation, 23 at the lip, size 7 tube placed, Co2 comfirmed by respiratory, intubation successful, propofol started. Ocampo placed.
[2023-03-03] MEDS: Albuterol/Iprat 2.5/0.5MG 3 ML AMPUL.NEB INHALE ×6 (02:38→19:54)
--- NOTE | 2023-03-03 02:43 | PC.NURSE ---
IJ placed on the left, by Dr. Burrows
--- NOTE | 2023-03-03 03:43 | PC.NURSE ---
NG tube confirmed by xray.
[2023-03-03 03:49] LABS: Appearance Urine Clear; Color Urine Yellow; Glucose Urine UA >=1000 mg/dL (Negative); Leukocyte Esterase Urine Negative (Negative); Nitrite Urine Negative (Negative); PH 5.5 (5.0-9.0); Specific Gravity - Urine >= 1.030 (1.005-1.025); UMIC TRIGGER UACC YES; Urine Blood Trace (Negative); Urine Ketones Trace mg/dL (Negative); Urine Protein 100 (2+) mg/dL (Neg-Trace)
[2023-03-03 03:52] LABS: Bacteria Urine None Seen (None Seen); RBC Urine 0-2 /HPF (0-2); Squamous Epithelial Cell Urine 0-2 /HPF (0-2); WBC Urine 0-5 /HPF (0-5)
--- NOTE | 2023-03-03 04:57 | PC.NURSE ---
pt repositioned, per care completed, pt change to Bipap to Cpap, pictures taken of coccy and under bilateral legs two area that are red and need monitoring. Picture sent to provider. Report given and pt being transferred to room.
--- NOTE | 2023-03-03 05:01 | PC.NURSE ---
Pictures sent to Dr. Weiss. of areas of concern.
[2023-03-03] MEDS: Midazolam HCl/PF 2 MG/2 ML VIAL IVPUSH (06:09)
[2023-03-03] MEDS: Furosemide 20 MG/2 ML VIAL IVPUSH (06:21)
--- NOTE | 2023-03-03 06:23 | PC.NURSE ---
Resp in to adjust vent settings, medicated with lasix to help with resp perfusion and fluid overload. Propofol increased to 50 mcg per kg. 600 cc removed from ramirez.
--- NOTE | 2023-03-03 06:58 | PC.NURSE ---
Resumed care of patient this morning, she is currently resting comfortably on the Vent, O2 at 95% BP 126/42, at 50mcg/kg for propofol. Ocampo draining yellow urine at this time. Grand daughter at bedside, all questions answered. Awaiting bed placement.
--- NOTE | 2023-03-03 07:59 | PC.NURSE ---
Resp in at bedside to perform a breathing tx, deep suction performed as well, sating 96% currently.
[2023-03-03] MEDS: propofoL 1,000 MG/100 ML VIAL 32.52 MG IVCONT (08:33)
--- NOTE | 2023-03-03 08:46 | P.HPCC_ITS ---
History of Present Illness Date of Service: 03/03/23 Attending physician on admission: Aline Grace Chief Complaint: dyspnea 82-year-old morbidly obese type 2 diabetic and hypertensive and hyperlipidemic with longstanding COPD and apparently obstructive sleep apnea but noncompliant presents with progressive dyspnea but progressive altered mental status with an agitated delirium and noted acute respiratory acidosis with pCO2 67 yet was sedated with repeated doses of lorazepam and and Haldol and diphenhydramine ultimately resulting in the necessity for intubation due to failure on noninvasive ventilation and has been on propofol drip ever since was given high- dose albuterol and 1 dose of steroids and 1 dose of ceftriaxone and [place] through my sin but the review of the CT scan of the chest failed to show a distinct infiltrate and definitely negative for pulmonary embolism at this point it appears to be in a potentially an asthmatic bronchitis leading to a status asthmaticus and she or he looks much more comfortable on positive- pressure along with Q 4 hourly bronchodilators and steroids bedside echo LV systolic function is fine but she has a reduced E to a wave ratio on Doppler indicating at least an early diastolic relaxation abnormality of the ventricle and probably the degree of concentric left ventricular hypertrophy as well Review of Systems Review of Systems: Yes unobtainable due to endotracheal tube PMFSH Past Medical History Medical History Allergic rhinitis Asthma Diabetes mellitus Elevated TSH Essential hypertension GERD (gastroesophageal reflux disease) Memory impairment Morbid obesity with BMI of 45.0-49.9, adult Osteoarthritis Osteoporosis Overactive bladder Pain in left knee Pure hypercholesterolemia Umbilical hernia without obstruction and without gangrene Vitamin D deficiency Family History Family History Father Diabetes Cancer Mother Diabetes Surgical History Surgical History History of arthroplasty of left knee History of arthroplasty of right knee History of hysterectomy Social History Social History Household Members: Unknown / Unable to assess Housing: Unknown / Unable to assess Unable to assess alcohol history related to: Unable to respond and Unknown Alcohol intake: never Patient Tobacco Use Status: Former Tobacco user Smoked in Last 30 Days: No e-Cigarette/Vaping Use: Never Used Second Hand Smoke Exposure: Yes Use of substances other than those prescribed or required for medical reasons: Unable to respond Advance Directives: No Advance Directives Information Provided: No Nutrition Risks: On aspiration precautions Patient : No : No Poor oral hygiene: No service: No Current occupational status: disabled Cognitive needs: Yes (cane) Hearing needs: Yes Vision needs: Yes Meds Allergies Allergy/AdvReac Type Severity Reaction Status Date / Time No Known Allergies Allergy Verified 03/02/23 16:08 Active Medications: Current Medications Albuterol/Ipratropium (Albuterol/Iprat 2.5/0.5mg 3 Ml Ampul.Neb) 3 ml INHALE Q4H PRN PRN Reason: Shortness of Breath/Wheezing Last Admin: 03/03/23 07:53 Dose: 3 ml Albuterol/Ipratropium (Albuterol/Iprat 2.5/0.5mg 3 Ml Ampul.Neb) 3 ml INHALE RQ4H [facility] Chlorhexidine Gluconate (Chlorhexidine Gluc Oral Rinse 15 Ml Mouthwash) 15 ml BUCCAL Q8H [facility] Famotidine (Famotidine/Pf 20 Mg/2 Ml Vial) 20 mg IVPUSH BID [facility] Heparin Sodium (Porcine) (Heparin Sodium,Porcine 5,000 Unit/Ml Vial) 5,000 unit SUBCUT Q8H [facility] Propofol (Diprivan) 1,000 mg in 100 mls @ 0 mls/hr IVCONT .Q0M [facility]; Protocol Last Admin: 03/03/23 08:33 Dose: 50 mcg/kg/min, 32.52 mls/hr Levofloxacin (Levaquin) 750 mg in 150 mls @ 100 mls/hr IV Q24H [facility] Insulin Human Lispro (Insulin Lispro 100 Unit/Ml 3 Ml Vial) 0 unit SUBCUT QIDACHS [facility]; Protocol Levothyroxine Sodium (Levothyroxine Sodium 25 Mcg Tablet) 25 mcg PO DAILY@0600 [facility] Methylprednisolone Sodium Succinate (Methylprednisolone Sod Succ 125 Mg/2 Ml Vial) 60 mg IVPUSH BID [facility] Pharmacy Consult (Consult Rx Perform Med Rec) 1 each MISCELLANE ONCE PRN PRN Reason: Consult order Home Medications Medication Instructions Recorded Confirmed Last Taken Type cholecalciferol (vitamin D3) 1,250 1,250 mcg PO QWEEK 08/08/20 03/02/23 Unknown History mcg (50,000 unit) capsule Physical Exam Vital Signs: Vital Signs: Last Vital Signs Temp 99.9 F 03/03/23 08:00 Pulse 91 03/03/23 08:33 Resp 18 03/03/23 08:33 BP 111/38 L 03/03/23 08:33 Pulse Ox 95 03/03/23 08:33 O2 Del Method Mechanical Ventil ation 03/03/23 08:00 O2 Flow Rate 5 03/02/23 21:28 FiO2 80 03/03/23 08:03 Oxygen Flow Rate 6 03/02/23 16:32 BMI result Body Mass Index 51.7 sedated and intubated mild bilateral expiratory wheezing but no significant accessory muscle or diaphragmatic effort bedside echo with LVH good systolic but diminished diastolic reserve abdomen soft with no organomegaly no peripheral edema no acrocyanosis Results Labs 03/02/23 18:17 03/02/23 18:17 Labs: Laboratory Results - last 24 hr 03/02/23 03/02/23 03/02/23 16:42 16:43 16:43 MCV MCH MCHC RDW Plt Count MPV Immature Gran % (Auto) Neut % (Auto) Lymph % (Auto) [place] % (Auto) Eos % (Auto) Baso % (Auto) Lymph # (Auto) [place] # (Auto) Eos # (Auto) Baso # (Auto) Abs Immat Gran (auto) Absolute Neuts (auto) Absolute Nucleated RBC Nucleated RBC % (auto) VBG pH VBG pCO2 VBG pO2 VBG HCO3 VBG O2 Saturation VBG Base Excess Anion Gap Estim Creat Clear Calc Estimated GFR Random Glucose Lactic Acid 1.9 Calcium Magnesium Total Bilirubin Direct Bilirubin AST ALT Alkaline Phosphatase Troponin I High Sens 240.7 H* B-Natriuretic Peptide 163 H Total Protein Albumin Procalcitonin Urine Color Urine Appearance Urine pH Ur Specific [place] Urine Protein Urine Glucose (UA) Urine Ketones Urine Blood Urine Nitrite Ur Leukocyte Esterase Urine RBC Urine WBC Ur Squamous Epith Cells Urine Bacteria Hyaline Casts COVID-19 (REGLA) COVID-19 Clin Com 03/02/23 03/02/23 03/02/23 17:03 18:17 18:17 MCV 86.0 MCH 25.9 L MCHC 30.2 L RDW 15.3 Plt Count 230 MPV 10.2 Immature Gran % (Auto) 0.3 Neut % (Auto) 84.6 H Lymph % (Auto) 11.3 L [place] % (Auto) 2.8 Eos % (Auto) 0.8 Baso % (Auto) 0.2 Lymph # (Auto) 1.5 [place] # (Auto) 0.4 Eos # (Auto) 0.1 Baso # (Auto) 0.0 Abs Immat Gran (auto) 0.04 H Absolute Neuts (auto) 11.1 H Absolute Nucleated RBC 0.000 Nucleated RBC % (auto) 0.0 VBG pH VBG pCO2 VBG pO2 VBG HCO3 VBG O2 Saturation VBG Base Excess Anion Gap 16 Estim Creat Clear Calc 47.7 Estimated GFR 55 Random Glucose 198 H Lactic Acid Calcium 9.4 Magnesium 2.3 Total Bilirubin 0.6 Direct Bilirubin 0.3 AST 19 ALT 13 Alkaline Phosphatase 95 Troponin I High Sens B-Natriuretic Peptide Total Protein 7.3 Albumin 4.0 Procalcitonin 0.07 Urine Color Urine Appearance Urine pH Ur Specific [place] Urine Protein Urine Glucose (UA) Urine Ketones Urine Blood Urine Nitrite Ur Leukocyte Esterase Urine RBC Urine WBC Ur Squamous Epith Cells Urine Bacteria Hyaline Casts COVID-19 (REGLA) Negative COVID-19 Clin Com See Note 03/02/23 03/02/23 03/03/23 18:21 20:01 03:37 MCV MCH MCHC RDW Plt Count MPV Immature Gran % (Auto) Neut % (Auto) Lymph % (Auto) [place] % (Auto) Eos % (Auto) Baso % (Auto) Lymph # (Auto) [place] # (Auto) Eos # (Auto) Baso # (Auto) Abs Immat Gran (auto) Absolute Neuts (auto) Absolute Nucleated RBC Nucleated RBC % (auto) VBG pH 7.28 L VBG pCO2 67 VBG pO2 54 VBG HCO3 32 H VBG O2 Saturation 79.0 VBG Base Excess 3.9 Anion Gap Estim Creat Clear Calc Estimated GFR Random Glucose Lactic Acid Calcium Magnesium Total Bilirubin Direct Bilirubin AST ALT Alkaline Phosphatase Troponin I High Sens 193.8 H* B-Natriuretic Peptide Total Protein Albumin Procalcitonin Urine Color Yellow Urine Appearance Clear Urine pH 5.5 Ur Specific [place] >= 1.030 H Urine Protein 100 (2+) H Urine Glucose (UA) >=1000 H Urine Ketones Trace Urine Blood Trace H Urine Nitrite Negative Ur Leukocyte Esterase Negative Urine RBC 0-2 Urine WBC 0-5 Ur Squamous Epith Cells 0-2 Urine Bacteria None Seen Hyaline Casts 3-5 COVID-19 (REGLA) COVID-19 Clin Com Imaging Radiologist's Impressions: Impressions Chest X-Ray 03/02/23 17:28 IMPRESSION: Increased interstitial thickening bilaterally raising the possibility of small airways disease or atypical/viral infections in the appropriate clinical context. Chest CT 03/02/23 19:21 IMPRESSION: Motion degraded examination. 1. No focal airspace opacity or significant groundglass disease. 2. Asymmetric soft tissue prominence of the left breast, nonspecific. If the patient is due, correlation with mammographic examinations is recommended. 3. Cardiomegaly and coronary calcifications, correlate with cardiovascular risk factors. Chest CTA 03/02/23 23:44 IMPRESSION: Significantly limited evaluation due to extensive motion artifact. While no central pulmonary embolus is seen, emboli in the lobar, segmental, or subsegmental vessels cannot be excluded. VTE: indeterminate. Chest X-Ray 03/03/23 03:22 IMPRESSION: Endotracheal tube tip 2.4 cm above the sukhdev. Enteric tube courses into the stomach. Somewhat streaky bibasilar opacities, which may reflect atelectasis. Prominent central vasculature. Assessment and Plan (1) Respiratory failure: Status: Acute (2) Hypoxic: Status: Acute (3) Hypoxemia: Status: Acute (4) Pneumonia: Status: Acute (5) History of total left knee replacement: Status: Acute (6) History of total right knee replacement: Status: Acute (7) Status asthmaticus: Status: Acute (8) Morbid obesity with BMI of 45.0-49.9, adult: Status: Acute (9) GERD (gastroesophageal reflux disease): Qualifiers: Esophagitis presence: without esophagitis Qualified Code(s): K21.9 - Gastro-esophageal reflux disease without esophagitis Status: Acute (10) Pure hypercholesterolemia: Status: Acute (11) Essential hypertension: Status: Acute (12) Diabetes mellitus: Qualifiers: Diabetes mellitus type: type 2 Diabetes mellitus alf insulin use: with alf use Diabetes mellitus complication status: without complication Qualified Code(s): E11.9 - Type 2 diabetes mellitus without complications; Z79.4 - intermediate manager (current) use of insulin Status: Acute (13) Acute and chronic respiratory failure with hypoxia: Status: Acute Plan will maintain overnight on the ventilator and consider weaning the sedation in the morning after she has had bronchodilator treatments and steroids and empiric Levaquin in case of atypical infection even though there is no distinct infiltrate on chest x-ray there still is some tree in bud involvement so she might have the no chronic asthmatic bronchitis Time Spent With Patient Time: Total time managing care of this patient today60 ____ minutes.
--- NOTE | 2023-03-03 08:59 | PC.NURSE ---
Report given to ICU nurse, resp/transport paged to help transfer
[2023-03-03 09:01] LABS: PTT Heparin Drip 24.8 SEC (53-77.9)
[2023-03-03 09:02] LABS: Venous Blood Gas Refer to POC result
[2023-03-03 09:02] LABS: VBG Base Excess 6.5 mmol/L; VBG HCO3 27 mmol/L (22-26); VBG pCO2 28 mmHg; VBG pH 7.59 (7.32-7.43); VBG pO2 128 mmHg
[2023-03-03] MEDS: methylPREDNISolone Sod Succ 125 MG/2 ML VIAL 60 MG IVPUSH ×2 (10:16→20:57)
[2023-03-03] MEDS: Heparin Sodium,Porcine 5,000 UNIT/ML VIAL 5000 UNIT SUBCUT ×2 (10:16→16:57)
[2023-03-03] MEDS: Chlorhexidine Gluc Oral Rinse 15 ML MOUTHWASH BUCCAL ×2 (10:16→16:57)
[2023-03-03] MEDS: levoFLOXacin/D5W 750 MG/150 ML PIGGYBACK 100 MG IV (10:17)
[2023-03-03] MEDS: Famotidine/PF 20 MG/2 ML VIAL IVPUSH ×2 (10:17→20:57)
[2023-03-03] MEDS: Norepinephrine Bitartrate/D5W 8 MG/250 ML PLAST..BAG 10.16 MG IV (10:20)
[2023-03-03 12:16] LABS: Glucose, Whole Blood 310 mg/dL (60-115)
[2023-03-03] MEDS: Insulin Lispro 100 UNIT/ML 3 ML VIAL SUBCUT ×3 (12:16→21:08)
[2023-03-03] MEDS: propofoL 1,000 MG/100 ML VIAL 26.02 MG IVCONT ×3 (15:54→23:18)
[2023-03-03 17:35] LABS: Glucose, Whole Blood 361 mg/dL (60-115)
[2023-03-03 21:11] LABS: Glucose, Whole Blood 318 mg/dL (60-115)
[2023-03-04] VITALS (45 sets, daily range): BP systolic 79–154; BP diastolic 26–68; PULSE 72–760; RESP 12–33; TEMP 34.9–37.7; O2SAT 90–97; BMI 50.8
[2023-03-04] MEDS: Albuterol/Iprat 2.5/0.5MG 3 ML AMPUL.NEB INHALE ×6 (00:10→20:02)
[2023-03-04] MEDS: Heparin Sodium,Porcine 5,000 UNIT/ML VIAL 5000 UNIT SUBCUT ×4 (00:15→23:51)
[2023-03-04] MEDS: Chlorhexidine Gluc Oral Rinse 15 ML MOUTHWASH BUCCAL ×4 (00:15→23:51)
[2023-03-04] MEDS: propofoL 1,000 MG/100 ML VIAL 26.02 MG IVCONT ×2 (02:30→05:48)
[2023-03-04 05:22] LABS: VBG HCO3 26 mmol/L (22-26); VBG pCO2 38 mmHg; VBG pH 7.43 (7.32-7.43); VBG pO2 80 mmHg
[2023-03-04 05:29] LABS: Venous Blood Gas Refer to POC result
[2023-03-04 05:36] LABS: Basophils Percent Auto 0.1 % (0-2); Hematocrit 38.7 % (37.0-47.0); Hemoglobin 12.1 g/dl (12.0-16.0); Imm Gran Abs Auto 0.16 X10*3/uL (0.00-0.03); Imm Gran Pct Auto 1.1 % (0.0-0.4); Lymphocytes Absolute Auto 0.9 X10*3/uL (1.2-4.9); MANUAL DIFF FLAG SCAN; Mean Corpuscular HGB Conc 31.3 g/dl (31.0-35.0); Mean Corpuscular Hemoglobin 26.6 pg (27.0-33.0); Mean Corpuscular Volume 85.1 fL (80.0-98.0); Mean Platelet Volume 11.2 fL (9.4-12.3); Monocytes Absolute Auto 0.4 X10*3/uL (0.1-1.2); Monocytes Percent Auto 2.4 % (2-11); Neutrophils Absolute Auto 13.3 x10*3/uL (2.0-8.3); Neutrophils Percent Auto 90.4 % (45-73); Platelet Count 273 X10*3/uL (160-400); Red Blood Count 4.55 X10*6/uL (4.20-5.50); Red Cell Distribution Width 15.9 % (11.0-16.0); SCAN SMEAR FLAG 1; White Blood Count 14.7 X10*3/uL (4.8-10.8)
[2023-03-04 05:53] LABS: Alanine Aminotransferase 21 U/L (0-31); Albumin Level 3.7 g/dL (3.5-5.0); Alkaline Phosphatase 89 U/L (39-117); Anion Gap 16 (12-20); Aspartate Amino Transferase 20 U/L (5-31); Bilirubin Total 0.6 mg/dL (0.0-1.0); Blood Urea Nitrogen 26 mg/dL (9-16); Calcium 9.1 mg/dL (8.4-10.2); Carbon Dioxide 26 mmol/L (22-29); Chloride 102 mmol/L (96-108); Creatinine Clr Calc Pharmacy 43.2; Estimated Glomerular Filt Rate 50; Glucose Random 467 mg/dL (60-115); Potassium 4.2 mmol/L (3.3-5.1); Sodium 140 mmol/L (135-145); Total Protein 6.9 g/dL (6.5-8.0)
[2023-03-04] MEDS: Levothyroxine Sodium 25 MCG TABLET PO (06:00)
[2023-03-04 06:06] LABS: SLIDE REVIEW VERIFIED
[2023-03-04] MEDS: Insulin Regular, Human 100 UNIT/ML 3 ML VIAL 10 UNIT IVPUSH (06:08)
[2023-03-04] MEDS: Famotidine/PF 20 MG/2 ML VIAL IVPUSH ×2 (07:24→19:55)
[2023-03-04] MEDS: methylPREDNISolone Sod Succ 125 MG/2 ML VIAL 60 MG IVPUSH (07:24)
[2023-03-04] MEDS: Insulin Glargine,Hum.rec.anlog 100 UNIT/ML 10 ML VIAL 10 UNIT SUBCUT (07:25)
[2023-03-04] MEDS: 0.9 % Sodium Chloride 500 ML IV ×2 (08:46→13:19)
[2023-03-04 08:59] LABS: Glucose, Whole Blood 420 mg/dL (60-115)
[2023-03-04] MEDS: dexmedeTOMIDidine HCL/NS 400 MCG/100 ML INFUS..BTL 13.31 MCG IVCONT (09:30)
[2023-03-04] MEDS: Norepinephrine Bitartrate/D5W 8 MG/250 ML PLAST..BAG 8.13 MG IV (09:44)
[2023-03-04] MEDS: Insulin Lispro 100 UNIT/ML 3 ML VIAL SUBCUT ×4 (09:50→20:53)
[2023-03-04 11:58] LABS: Glucose, Whole Blood 392 mg/dL (60-115)
--- NOTE | 2023-03-04 13:47 | MHC.CM.PN ---
Pt intubated and unable to particpate in CM assessment/d/c planning; Call placed to dtr/HCP Elayne: message left: CM to follow for finalization of d/c planning needs
--- NOTE | 2023-03-04 14:54 | P.PNCC_ITS ---
Subjective Subjective Date of Service: 03/04/23 Interval History: Off the propofol she basically had good cognitive function however periodically hysterical became increasingly tachypneic difficult to wean on that basis despite the daughter trying to eat a provide reassurance to our eventually a required the placement on dexmedetomidine and with that she did fall asleep but the mariscal we paid was persistent end-tidal CO2 is a of about 50-[address] her pCO2 right back in the acute hypercarbic range where the her mental status was altered so despite borderline adequacy to her tidal volumes I think that we need another day due to further minimize her increased work of breathing and possibly allow her to better compensate with her tidal volumes gag and and dropping her end-tidal CO2 is a little further to make the weaning process easier so she will remain overnight on the dexmedetomidine and on pressure control with at least a backup rate of 12 and will re-evaluate the ability to wean in the morning Critical Care Time (minutes): 45 Physical Exam Vital Signs: Vital Signs: Last Vital Signs Temp 99.1 F 03/04/23 14:00 Pulse 76 03/04/23 14:00 Resp 12 03/04/23 14:00 BP 106/45 L 03/04/23 14:00 Pulse Ox 93 03/04/23 14:00 O2 Del Method Mechanical Ventil ation 03/04/23 14:00 O2 Flow Rate 5 03/02/23 21:28 FiO2 30 03/04/23 14:00 Oxygen Flow Rate 6 03/02/23 16:32 BMI result Body Mass Index 50.8 Cognitive function was good a good neurologic function nonfocal Bedside echo with preserved systolic reserve Lungs without use of accessory muscles nor diaphragmatic effort Abdomen soft tolerating feedings no organomegaly Objective Data Labs 03/04/23 05:03 03/04/23 05:03 Labs: Laboratory Results - last 24 hr 03/03/23 03/03/23 03/04/23 17:28 21:04 05:03 WBC 14.7 H RBC 4.55 Hgb 12.1 Hct 38.7 MCV 85.1 MCH 26.6 L MCHC 31.3 RDW 15.9 Plt Count 273 MPV 11.2 Immature Gran % (Auto) 1.1 H Neut % (Auto) 90.4 H Lymph % (Auto) 6.0 L [place] % (Auto) 2.4 Eos % (Auto) 0.0 Baso % (Auto) 0.1 Lymph # (Auto) 0.9 L [place] # (Auto) 0.4 Eos # (Auto) 0.0 Baso # (Auto) 0.0 Abs Immat Gran (auto) 0.16 H Absolute Neuts (auto) 13.3 H Absolute Nucleated RBC 0.000 Nucleated RBC % (auto) 0.0 Smear Tech's Comments VERIFIED VBG pH VBG pCO2 VBG pO2 VBG HCO3 VBG O2 Saturation VBG Base Excess Sodium Potassium Chloride Carbon Dioxide Anion Gap BUN Creatinine Estim Creat Clear Calc Estimated GFR POC Glucose 361 H* 318 H Random Glucose Calcium Total Bilirubin AST ALT Alkaline Phosphatase Total Protein Albumin 03/04/23 03/04/23 03/04/23 05:03 05:15 08:51 WBC RBC Hgb Hct MCV MCH MCHC RDW Plt Count MPV Immature Gran % (Auto) Neut % (Auto) Lymph % (Auto) [place] % (Auto) Eos % (Auto) Baso % (Auto) Lymph # (Auto) [place] # (Auto) Eos # (Auto) Baso # (Auto) Abs Immat Gran (auto) Absolute Neuts (auto) Absolute Nucleated RBC Nucleated RBC % (auto) Smear Tech's Comments VBG pH 7.43 VBG pCO2 38 VBG pO2 80 VBG HCO3 26 VBG O2 Saturation 96.0 VBG Base Excess 2.0 Sodium 140 Potassium 4.2 Chloride 102 Carbon Dioxide 26 Anion Gap 16 BUN 26 H Creatinine 1.06 Estim Creat Clear Calc 43.2 Estimated GFR 50 POC Glucose 420 H* Random Glucose 467 H* Calcium 9.1 Total Bilirubin 0.6 AST 20 ALT 21 Alkaline Phosphatase 89 Total Protein 6.9 Albumin 3.7 03/04/23 11:53 WBC RBC Hgb Hct MCV MCH MCHC RDW Plt Count MPV Immature Gran % (Auto) Neut % (Auto) Lymph % (Auto) [place] % (Auto) Eos % (Auto) Baso % (Auto) Lymph # (Auto) [place] # (Auto) Eos # (Auto) Baso # (Auto) Abs Immat Gran (auto) Absolute Neuts (auto) Absolute Nucleated RBC Nucleated RBC % (auto) Smear Tech's Comments VBG pH VBG pCO2 VBG pO2 VBG HCO3 VBG O2 Saturation VBG Base Excess Sodium Potassium Chloride Carbon Dioxide Anion Gap BUN Creatinine Estim Creat Clear Calc Estimated GFR POC Glucose 392 H* Random Glucose Calcium Total Bilirubin AST ALT Alkaline Phosphatase Total Protein Albumin Microbiology Microbiology Results: Microbiology 03/02/23 18:17 Blood - Venous Blood Culture - Preliminary No growth after 24 hours. 03/02/23 16:42 Blood - Venous Blood Culture - Preliminary No growth after 24 hours. Progress Note: A&P Assessment and plan (1) Acute and chronic respiratory failure with hypoxia: Status: Acute (2) Status asthmaticus: Status: Acute (3) Respiratory failure: Status: Acute (4) Hypoxic: Status: Acute (5) Hypoxemia: Status: Acute (6) Pneumonia: Status: Acute (7) History of total left knee replacement: Status: Acute (8) History of total right knee replacement: Status: Acute (9) Asthma: Status: Acute (10) Asthma exacerbation: Status: Acute (11) Otitis externa: Status: Acute (12) Elevated TSH: Status: Acute (13) Pain in left knee: Status: Acute (14) Morbid obesity with BMI of 45.0-49.9, adult: Status: Acute (15) Overactive bladder: Status: Acute (16) Umbilical hernia without obstruction and without gangrene: Status: Acute (17) Osteoarthritis: Status: Acute (18) Memory impairment: Status: Acute (19) Vitamin D deficiency: Status: Acute (20) Allergic rhinitis: Status: Acute (21) Osteoporosis: Status: Acute (22) GERD (gastroesophageal reflux disease): Status: Acute (23) Pure hypercholesterolemia: Status: Acute (24) Essential hypertension: Status: Acute (25) Diabetes mellitus: Status: Acute Plan So the plan is to rest her on dexmedetomidine and pressure control with a backup rate of 12 and re-evaluate off dexmedetomidine in the morning when the daughter is present to reassure her try run pressure support wean Quality Stroke Does the patient have a stroke diagnosis?: No VTE Prior VTE?: No VTE Risk Level:: Medical - moderate - high VTE Device Contraindication: N/A - Device Ordered VTE Drug Contraindication: N/A - Med Ordered
[2023-03-04] MEDS: 0.9 % Sodium Chloride Flush 3 ML SYRINGE IVFLUSH ×2 (15:51→23:52)
[2023-03-04] MEDS: dexmedeTOMIDidine HCL/NS 400 MCG/100 ML INFUS..BTL 26.63 MCG IVCONT ×3 (15:51→21:44)
[2023-03-04 17:37] LABS: Glucose, Whole Blood 313 mg/dL (60-115)
[2023-03-04 20:20] LABS: Glucose, Whole Blood 284 mg/dL (60-115)
[2023-03-05] VITALS (35 sets, daily range): BP systolic 114–172; BP diastolic 42–117; PULSE 71–94; RESP 10–34; TEMP 31.8–37.8; O2SAT 27–100; BMI 50.6
[2023-03-05] MEDS: Albuterol/Iprat 2.5/0.5MG 3 ML AMPUL.NEB INHALE ×6 (00:20→21:04)
[2023-03-05] MEDS: dexmedeTOMIDidine HCL/NS 400 MCG/100 ML INFUS..BTL 26.63 MCG IVCONT (01:20)
[2023-03-05] MEDS: fentaNYL citrate/PF 100 MCG/2 ML VIAL IVPUSH (03:35)
[2023-03-05] MEDS: dexmedeTOMIDidine HCL/NS 400 MCG/100 ML INFUS..BTL 39.94 MCG IVCONT (04:37)
[2023-03-05 05:03] LABS: VBG Base Excess 5.1 mmol/L; VBG HCO3 28 mmol/L (22-26); VBG pCO2 37 mmHg; VBG pH 7.49 (7.32-7.43); VBG pO2 53 mmHg
[2023-03-05 05:18] LABS: Venous Blood Gas Refer to POC result
[2023-03-05 05:33] LABS: MANUAL DIFF FLAG NO
[2023-03-05 05:36] LABS: Basophils Percent Auto 0.2 % (0-2); Hemoglobin 11.4 g/dl (12.0-16.0); Imm Gran Abs Auto 0.05 X10*3/uL (0.00-0.03); Imm Gran Pct Auto 0.4 % (0.0-0.4); Lymphocytes Absolute Auto 2.9 X10*3/uL (1.2-4.9); Lymphocytes Percent Auto 22.4 % (20-40); Mean Corpuscular HGB Conc 30.8 g/dl (31.0-35.0); Mean Corpuscular Hemoglobin 26.1 pg (27.0-33.0); Mean Corpuscular Volume 84.7 fL (80.0-98.0); Mean Platelet Volume 10.6 fL (9.4-12.3); Monocytes Absolute Auto 0.8 X10*3/uL (0.1-1.2); Platelet Count 212 X10*3/uL (160-400); Red Blood Count 4.37 X10*6/uL (4.20-5.50); Red Cell Distribution Width 16.3 % (11.0-16.0); White Blood Count 12.7 X10*3/uL (4.8-10.8)
[2023-03-05 06:06] LABS: Alanine Aminotransferase 20 U/L (0-31); Albumin Level 3.2 g/dL (3.5-5.0); Alkaline Phosphatase 73 U/L (39-117); Anion Gap 12 (12-20); Aspartate Amino Transferase 18 U/L (5-31); Bilirubin Total 0.4 mg/dL (0.0-1.0); Blood Urea Nitrogen 30 mg/dL (9-16); Calcium 8.3 mg/dL (8.4-10.2); Carbon Dioxide 26 mmol/L (22-29); Chloride 105 mmol/L (96-108); Creatinine Clr Calc Pharmacy 50.3; Estimated Glomerular Filt Rate 59; Glucose Random 374 mg/dL (60-115); Potassium 4.4 mmol/L (3.3-5.1); Sodium 139 mmol/L (135-145)
[2023-03-05] MEDS: Midazolam HCl/PF 2 MG/2 ML VIAL IVPUSH (06:30)
[2023-03-05] MEDS: Levothyroxine Sodium 25 MCG TABLET PO (07:06)
[2023-03-05 08:07] LABS: Glucose, Whole Blood 386 mg/dL (60-115)
[2023-03-05] MEDS: 0.9 % Sodium Chloride Flush 3 ML SYRINGE IVFLUSH ×3 (08:23→16:16)
[2023-03-05] MEDS: predniSONE 20 MG TABLET 40 MG PO (08:24)
[2023-03-05] MEDS: Chlorhexidine Gluc Oral Rinse 15 ML MOUTHWASH BUCCAL ×2 (08:25→16:15)
[2023-03-05] MEDS: Insulin Glargine,Hum.rec.anlog 100 UNIT/ML 10 ML VIAL 10 UNIT SUBCUT (08:25)
[2023-03-05] MEDS: Heparin Sodium,Porcine 5,000 UNIT/ML VIAL 5000 UNIT SUBCUT ×2 (08:25→16:16)
[2023-03-05] MEDS: Famotidine/PF 20 MG/2 ML VIAL IVPUSH ×2 (08:25→20:59)
[2023-03-05] MEDS: Insulin Lispro 100 UNIT/ML 3 ML VIAL SUBCUT ×4 (08:26→20:59)
[2023-03-05] MEDS: levoFLOXacin/D5W 750 MG/150 ML PIGGYBACK 100 MG IV (08:28)
--- NOTE | 2023-03-05 09:49 | MHC.CLN ---
F/U PT RECEIVING TF GLUCERNA AT 50ML/HR WITH 120ML FREE WATER FLUSHES Q 6 HRS PROVIDES 1200KCALS (29KCALS/KG BASED ON IBW), 50G PROTEIN (1.2G/KG), 1504ML TOTAL FREE WATER FROM FORMULA AND FWF (37ML/KG BASED ON IBW) MONITOR TOLERANCE, RESIDUAL AND LYTES
[2023-03-05 11:17] LABS: Glucose, Whole Blood 272 mg/dL (60-115)
--- NOTE | 2023-03-05 13:32 | MHC.CM.PN ---
Met w/pt, who has been extubated, and her dtr Elayne to discuss d/c planning: pt has been staying w/Elayne and has daily [employer] services. Elayne states pt is moving to a handicap apt in April. Pt uses a cane, walker and commode and has never been to a SNF: [facility] family will care for pt at home. Pt and dtr receptive to [facility] skilled RN visits: referral made. Dtr to transport vs BLS. HCP on file. CM to follow for finalization of d/c planning.
[2023-03-05] MEDS: Racepinephrine HCL 0.5 ML VIAL.NEB INHALE (15:41)
--- NOTE | 2023-03-05 15:58 | PM.CCPN ---
Subjective Subjective Date of Service: 03/05/23 Interval History: 82-year-old morbidly obese type 2 diabetic female who probably has an underlying degree of untreated sleep apnea and obesity/hypoventilation presented with acute on chronic hypercarbic and hypoxic respiratory failure and was delirious with mostly in acute respiratory acidosis and when given sedation in the emergency room paradoxically the agitation worsened requiring intubation and right now she has been extubated for 24 hours and doing well on BiPAP but does have behavioral issues max out there was no delirium but she was just very upset and agitated constantly removing her mask and we had to sedate her and unfortunately because she slept and I am sure she was sleep deprived we are unable to switch her to nasal high-flow and recheck a blood gas which was perfect on on her BiPAP and she is not using accessory muscles nor is there diaphragmatic effort no longer clinically in status septal and status asthmaticus so I think if the blood gas holds up well the plan would be to let her go to the floor get out of bed and eat on nasal cannula and just use BiPAP as a nocturnal maintenance Critical Care Time (minutes): 45 Physical Exam Vital Signs: Vital Signs: Last Vital Signs Temp 99.7 F 03/05/23 14:46 Pulse 87 03/05/23 14:46 Resp 27 H 03/05/23 14:46 BP 139/53 L 03/05/23 14:46 Pulse Ox 94 03/05/23 14:46 O2 Del Method BiPAP 03/05/23 14:46 O2 Flow Rate 5 03/02/23 21:28 FiO2 30 03/05/23 14:46 Oxygen Flow Rate 6 03/02/23 16:32 BMI result Body Mass Index 50.6 vital signs stable and she is oriented no adventitious sounds and no use of diaphragm or accessory muscles bedside echo showed concentric left ventricular hypertrophy with normal systolic reserve abdomen obese but no again no megaly nontender no edema no acrocyanosis Objective Data Labs 03/05/23 04:58 03/05/23 04:58 Labs: Laboratory Results - last 24 hr 03/04/23 03/04/23 03/05/23 17:30 20:14 04:55 WBC RBC Hgb Hct MCV MCH MCHC RDW Plt Count MPV Immature Gran % (Auto) Neut % (Auto) Lymph % (Auto) [place] % (Auto) Eos % (Auto) Baso % (Auto) Lymph # (Auto) [place] # (Auto) Eos # (Auto) Baso # (Auto) Abs Immat Gran (auto) Absolute Neuts (auto) Absolute Nucleated RBC Nucleated RBC % (auto) VBG pH 7.49 H VBG pCO2 37 VBG pO2 53 VBG HCO3 28 H VBG O2 Saturation 85.0 VBG Base Excess 5.1 Sodium Potassium Chloride Carbon Dioxide Anion Gap BUN Creatinine Estim Creat Clear Calc Estimated GFR POC Glucose 313 H 284 H Random Glucose Calcium Total Bilirubin AST ALT Alkaline Phosphatase Total Protein Albumin 03/05/23 03/05/23 03/05/23 04:58 04:58 08:04 WBC 12.7 H RBC 4.37 Hgb 11.4 L Hct 37.0 MCV 84.7 MCH 26.1 L MCHC 30.8 L RDW 16.3 H Plt Count 212 MPV 10.6 Immature Gran % (Auto) 0.4 Neut % (Auto) 71.0 Lymph % (Auto) 22.4 [place] % (Auto) 6.0 Eos % (Auto) 0.0 Baso % (Auto) 0.2 Lymph # (Auto) 2.9 [place] # (Auto) 0.8 Eos # (Auto) 0.0 Baso # (Auto) 0.0 Abs Immat Gran (auto) 0.05 H Absolute Neuts (auto) 9.0 H Absolute Nucleated RBC 0.000 Nucleated RBC % (auto) 0.0 VBG pH VBG pCO2 VBG pO2 VBG HCO3 VBG O2 Saturation VBG Base Excess Sodium 139 Potassium 4.4 Chloride 105 Carbon Dioxide 26 Anion Gap 12 BUN 30 H Creatinine 0.91 Estim Creat Clear Calc 50.3 Estimated GFR 59 POC Glucose 386 H* Random Glucose 374 H* Calcium 8.3 L D Total Bilirubin 0.4 AST 18 ALT 20 Alkaline Phosphatase 73 Total Protein 6.0 L Albumin 3.2 L 03/05/23 11:13 WBC RBC Hgb Hct MCV MCH MCHC RDW Plt Count MPV Immature Gran % (Auto) Neut % (Auto) Lymph % (Auto) [place] % (Auto) Eos % (Auto) Baso % (Auto) Lymph # (Auto) [place] # (Auto) Eos # (Auto) Baso # (Auto) Abs Immat Gran (auto) Absolute Neuts (auto) Absolute Nucleated RBC Nucleated RBC % (auto) VBG pH VBG pCO2 VBG pO2 VBG HCO3 VBG O2 Saturation VBG Base Excess Sodium Potassium Chloride Carbon Dioxide Anion Gap BUN Creatinine Estim Creat Clear Calc Estimated GFR POC Glucose 272 H Random Glucose Calcium Total Bilirubin AST ALT Alkaline Phosphatase Total Protein Albumin Microbiology Microbiology Results: Microbiology 03/02/23 18:17 Blood - Venous Blood Culture - Preliminary No growth after 48 hours. 03/02/23 16:42 Blood - Venous Blood Culture - Preliminary No growth after 48 hours. Progress Note: A&P Assessment and plan (1) Acute and chronic respiratory failure with hypoxia: Status: Acute (2) Status asthmaticus: Status: Acute (3) Respiratory failure: Status: Acute (4) Hypoxic: Status: Acute (5) Hypoxemia: Status: Acute (6) Pneumonia: Status: Acute (7) History of total left knee replacement: Status: Acute (8) History of total right knee replacement: Status: Acute (9) Asthma: Status: Acute (10) Asthma exacerbation: Status: Acute (11) Otitis externa: Status: Acute (12) Elevated TSH: Status: Acute (13) Pain in left knee: Status: Acute (14) Morbid obesity with BMI of 45.0-49.9, adult: Status: Acute (15) Overactive bladder: Status: Acute (16) Umbilical hernia without obstruction and without gangrene: Status: Acute (17) Osteoarthritis: Status: Acute (18) Memory impairment: Status: Acute (19) Vitamin D deficiency: Status: Acute (20) Allergic rhinitis: Status: Acute (21) Osteoporosis: Status: Acute (22) GERD (gastroesophageal reflux disease): Status: Acute (23) Pure hypercholesterolemia: Status: Acute (24) Essential hypertension: Status: Acute (25) Diabetes mellitus: Status: Acute Plan so the plan with ongoing respiratory comfort would be to try to at some point switch her over to nasal high-flow as the next step down that being tolerated she could go to intermediate care and started diet and out of bed status etc. Quality Stroke Does the patient have a stroke diagnosis?: No VTE Prior VTE?: No VTE Risk Level:: Medical - moderate - high VTE Device Contraindication: N/A - Device Ordered VTE Drug Contraindication: N/A - Med Ordered
[2023-03-05 16:09] LABS: Glucose, Whole Blood 242 mg/dL (60-115)
[2023-03-05 20:59] LABS: Glucose, Whole Blood 187 mg/dL (60-115)
[2023-03-06] VITALS (31 sets, daily range): BP systolic 110–163; BP diastolic 48–97; PULSE 66–95; RESP 16–85; TEMP 32–37.6; O2SAT 89–98; BMI 50.4
[2023-03-06] MEDS: 0.9 % Sodium Chloride Flush 3 ML SYRINGE IVFLUSH (00:20)
[2023-03-06] MEDS: Heparin Sodium,Porcine 5,000 UNIT/ML VIAL 5000 UNIT SUBCUT ×3 (00:20→16:31)
[2023-03-06] MEDS: Albuterol/Iprat 2.5/0.5MG 3 ML AMPUL.NEB INHALE ×6 (00:42→23:47)
[2023-03-06 05:43] LABS: VBG Base Excess 9.1 mmol/L; VBG HCO3 32 mmol/L (22-26); VBG pCO2 38 mmHg; VBG pH 7.53 (7.32-7.43); VBG pO2 68 mmHg
[2023-03-06 05:48] LABS: Venous Blood Gas Refer to POC result
[2023-03-06 05:55] LABS: MANUAL DIFF FLAG NO
[2023-03-06 05:59] LABS: Basophils Percent Auto 0.2 % (0-2); Eosinophils Percent Auto 0.4 % (0-4); Hematocrit 36.8 % (37.0-47.0); Hemoglobin 11.1 g/dl (12.0-16.0); Imm Gran Abs Auto 0.04 X10*3/uL (0.00-0.03); Imm Gran Pct Auto 0.4 % (0.0-0.4); Lymphocytes Absolute Auto 3.1 X10*3/uL (1.2-4.9); Lymphocytes Percent Auto 29.5 % (20-40); Mean Corpuscular HGB Conc 30.2 g/dl (31.0-35.0); Mean Corpuscular Hemoglobin 25.6 pg (27.0-33.0); Mean Platelet Volume 10.4 fL (9.4-12.3); Monocytes Absolute Auto 0.9 X10*3/uL (0.1-1.2); Neutrophils Absolute Auto 6.5 x10*3/uL (2.0-8.3); Neutrophils Percent Auto 61.5 % (45-73); Platelet Count 212 X10*3/uL (160-400); Red Blood Count 4.33 X10*6/uL (4.20-5.50); Red Cell Distribution Width 16.2 % (11.0-16.0); White Blood Count 10.6 X10*3/uL (4.8-10.8)
[2023-03-06 06:17] LABS: Alanine Aminotransferase 21 U/L (0-31); Albumin Level 3.3 g/dL (3.5-5.0); Alkaline Phosphatase 74 U/L (39-117); Anion Gap 13 (12-20); Aspartate Amino Transferase 19 U/L (5-31); Bilirubin Total 0.5 mg/dL (0.0-1.0); Blood Urea Nitrogen 22 mg/dL (9-16); Calcium 8.9 mg/dL (8.4-10.2); Carbon Dioxide 27 mmol/L (22-29); Chloride 108 mmol/L (96-108); Creatinine Clr Calc Pharmacy 59.2; Estimated Glomerular Filt Rate > 60; Glucose Random 110 mg/dL (60-115); Potassium 4.2 mmol/L (3.3-5.1); Sodium 144 mmol/L (135-145); Total Protein 6.2 g/dL (6.5-8.0)
[2023-03-06] MEDS: fentaNYL citrate/PF 100 MCG/2 ML VIAL 50 MCG IVPUSH ×2 (06:59→07:18)
[2023-03-06] MEDS: dexmedeTOMIDidine HCL/NS 400 MCG/100 ML INFUS..BTL 26.43 MCG IVCONT (07:20)
[2023-03-06 07:21] LABS: Glucose, Whole Blood 174 mg/dL (60-115)
[2023-03-06] MEDS: Famotidine/PF 20 MG/2 ML VIAL IVPUSH ×2 (08:23→21:11)
[2023-03-06] MEDS: Insulin Glargine,Hum.rec.anlog 100 UNIT/ML 10 ML VIAL 10 UNIT SUBCUT (08:33)
[2023-03-06 11:23] LABS: Glucose, Whole Blood 206 mg/dL (60-115)
[2023-03-06] MEDS: Insulin Lispro 100 UNIT/ML 3 ML VIAL SUBCUT (11:55)
--- NOTE | 2023-03-06 14:09 | P.PNCC_ITS ---
Subjective Subjective Date of Service: 03/06/23 Interval History: 82-year-old morbidly obese type 2 diabetic female with untreated sleep apnea and obesity/ hypoventilation presented with altered mental status due to delirium from acute hypercarbia and hypoxia requiring intubation currently extubated for 24 hours and actually doing well on noninvasive ventilation and because she got very agitated this morning she was sedated with dexmedetomidine and fentanyl finally now waking up and were going to switch her over to nasal high-flow and if the blood gas after an hour remains comfortable transfer to [facility] for out of bed and resumption of diet but there is no clinical status asthmaticus at this point Critical Care Time (minutes): 45 Physical Exam Vital Signs: Vital Signs: Last Vital Signs Temp 98.6 F 03/06/23 13:00 Pulse 74 03/06/23 14:00 Resp 21 H 03/06/23 13:00 BP 126/48 L 03/06/23 14:00 Pulse Ox 94 03/06/23 14:00 O2 Del Method High Flow Nasal C annula 03/06/23 14:00 O2 Flow Rate 45 03/06/23 14:00 FiO2 30 03/06/23 14:00 Oxygen Flow Rate 6 03/02/23 16:32 BMI result Body Mass Index 50.4 on BiPAP respiratory status is comfortable no work of breathing issue no active wheezing oriented and neurologically intact bedside echo with concentric LVH normal systolic but early diastolic relaxation abnormality abdomen obese but nontender Objective Data Labs 03/06/23 05:16 03/06/23 05:16 Labs: Laboratory Results - last 24 hr 03/05/23 03/05/23 03/06/23 16:06 20:55 05:16 WBC 10.6 RBC 4.33 Hgb 11.1 L Hct 36.8 L MCV 85.0 MCH 25.6 L MCHC 30.2 L RDW 16.2 H Plt Count 212 MPV 10.4 Immature Gran % (Auto) 0.4 Neut % (Auto) 61.5 Lymph % (Auto) 29.5 [place] % (Auto) 8.0 Eos % (Auto) 0.4 Baso % (Auto) 0.2 Lymph # (Auto) 3.1 [place] # (Auto) 0.9 Eos # (Auto) 0.0 Baso # (Auto) 0.0 Abs Immat Gran (auto) 0.04 H Absolute Neuts (auto) 6.5 Absolute Nucleated RBC 0.000 Nucleated RBC % (auto) 0.0 VBG pH VBG pCO2 VBG pO2 VBG HCO3 VBG O2 Saturation VBG Base Excess Sodium Potassium Chloride Carbon Dioxide Anion Gap BUN Creatinine Estim Creat Clear Calc Estimated GFR POC Glucose 242 H 187 H Random Glucose Calcium Total Bilirubin AST ALT Alkaline Phosphatase Total Protein Albumin 03/06/23 03/06/23 03/06/23 05:16 05:36 07:18 WBC RBC Hgb Hct MCV MCH MCHC RDW Plt Count MPV Immature Gran % (Auto) Neut % (Auto) Lymph % (Auto) [place] % (Auto) Eos % (Auto) Baso % (Auto) Lymph # (Auto) [place] # (Auto) Eos # (Auto) Baso # (Auto) Abs Immat Gran (auto) Absolute Neuts (auto) Absolute Nucleated RBC Nucleated RBC % (auto) VBG pH 7.53 H VBG pCO2 38 VBG pO2 68 VBG HCO3 32 H VBG O2 Saturation 96.0 VBG Base Excess 9.1 Sodium 144 Potassium 4.2 Chloride 108 Carbon Dioxide 27 Anion Gap 13 BUN 22 H Creatinine 0.77 Estim Creat Clear Calc 59.2 Estimated GFR > 60 POC Glucose 174 H Random Glucose 110 Calcium 8.9 D Total Bilirubin 0.5 AST 19 ALT 21 Alkaline Phosphatase 74 Total Protein 6.2 L Albumin 3.3 L 03/06/23 11:19 WBC RBC Hgb Hct MCV MCH MCHC RDW Plt Count MPV Immature Gran % (Auto) Neut % (Auto) Lymph % (Auto) [place] % (Auto) Eos % (Auto) Baso % (Auto) Lymph # (Auto) [place] # (Auto) Eos # (Auto) Baso # (Auto) Abs Immat Gran (auto) Absolute Neuts (auto) Absolute Nucleated RBC Nucleated RBC % (auto) VBG pH VBG pCO2 VBG pO2 VBG HCO3 VBG O2 Saturation VBG Base Excess Sodium Potassium Chloride Carbon Dioxide Anion Gap BUN Creatinine Estim Creat Clear Calc Estimated GFR POC Glucose 206 H Random Glucose Calcium Total Bilirubin AST ALT Alkaline Phosphatase Total Protein Albumin Microbiology Microbiology Results: Microbiology 03/02/23 18:17 Blood - Venous Blood Culture - Preliminary No growth after 48 hours. 03/02/23 16:42 Blood - Venous Blood Culture - Preliminary No growth after 48 hours. Progress Note: A&P Assessment and plan (1) Acute and chronic respiratory failure with hypoxia: Status: Acute (2) Status asthmaticus: Status: Acute (3) Respiratory failure: Status: Acute (4) Hypoxic: Status: Acute (5) Hypoxemia: Status: Acute (6) Pneumonia: Status: Acute (7) History of total left knee replacement: Status: Acute (8) History of total right knee replacement: Status: Acute (9) Asthma: Status: Acute (10) Asthma exacerbation: Status: Acute (11) Otitis externa: Status: Acute (12) Elevated TSH: Status: Acute (13) Pain in left knee: Status: Acute (14) Morbid obesity with BMI of 45.0-49.9, adult: Status: Acute (15) Overactive bladder: Status: Acute (16) Umbilical hernia without obstruction and without gangrene: Status: Acute (17) Osteoarthritis: Status: Acute (18) Memory impairment: Status: Acute (19) Vitamin D deficiency: Status: Acute (20) Allergic rhinitis: Status: Acute (21) Osteoporosis: Status: Acute (22) GERD (gastroesophageal reflux disease): Status: Acute (23) Pure hypercholesterolemia: Status: Acute (24) Essential hypertension: Status: Acute (25) Diabetes mellitus: Status: Acute Plan so impression status post acute hypercarbic respiratory failure with status asthmaticus probably due to asthmatic bronchitis she is taking Levaquin empirically not producing any sputum nor coughing and is no clinical status at this point so were going to switch to nasal high-flow and if tolerated clinically as well as by blood gas then transfer to [facility] Quality Stroke Does the patient have a stroke diagnosis?: No VTE Prior VTE?: No VTE Risk Level:: Medical - moderate - high VTE Device Contraindication: N/A - Device Ordered VTE Drug Contraindication: N/A - Med Ordered
[2023-03-06 15:31] LABS: VBG Base Excess 8.8 mmol/L; VBG HCO3 32 mmol/L (22-26); VBG pCO2 42 mmHg; VBG pH 7.49 (7.32-7.43); VBG pO2 203 mmHg
[2023-03-06 15:34] LABS: Venous Blood Gas Refer to POC result
[2023-03-06 16:19] LABS: ABG Base Excess 8.8 mmol/L; ABG HCO3 34 mmol/L (22-26); ABG pCO2 51 mmHg (32-45); ABG pH 7.43 (7.35-7.45); ABG pO2 69 mmHg (83-108)
[2023-03-06 16:32] LABS: Glucose, Whole Blood 129 mg/dL (60-115)
[2023-03-06 20:57] LABS: Glucose, Whole Blood 169 mg/dL (60-115)
[2023-03-06] MEDS: LORazepam 2 MG/ML VIAL 1 MG IVPUSH (21:08)
[2023-03-06 21:41] LABS: ABG Refer to POC result
[2023-03-07] VITALS (15 sets, daily range): BP systolic 128–194; BP diastolic 60–84; PULSE 78–101; RESP 18–23; TEMP 36.3–38.3; O2SAT 90–98; BMI 27.5
[2023-03-07 00:26] LABS: Glucose, Whole Blood 152 mg/dL (60-115)
[2023-03-07] MEDS: Heparin Sodium,Porcine 5,000 UNIT/ML VIAL 5000 UNIT SUBCUT ×2 (03:29→08:50)
[2023-03-07] MEDS: Levothyroxine Sodium 25 MCG TABLET PO (04:54)
[2023-03-07] MEDS: Albuterol/Iprat 2.5/0.5MG 3 ML AMPUL.NEB INHALE ×6 (05:12→23:33)
--- NOTE | 2023-03-07 05:33 | PC.NURSE ---
pt became agitated and at times aggressive at start of shift and was not able to be redirected. Family at bedside able to calm her slightly. Pt continued to become worked up despite nursing interventions and she became sob, mildly diaphoretic and with concern for fall. Constant trailer steerer at bedside for safety, aware and IV ativan x1 with positive effect. Pt's iv came out shortly after meds from pt's movements. Unable to replace thus far as attept immediately laith pt. Pt slept reasonably well with occasional short episodes of mild agitation. this am she became more agitated and paged. Awaiting orders. Will CTM+T and maintain safety.
[2023-03-07 07:44] LABS: Glucose, Whole Blood 161 mg/dL (60-115)
[2023-03-07] MEDS: predniSONE 20 MG TABLET 40 MG PO (08:50)
[2023-03-07] MEDS: Famotidine 20 MG TABLET PO ×2 (08:50→20:41)
[2023-03-07] MEDS: Insulin Glargine,Hum.rec.anlog 100 UNIT/ML 10 ML VIAL 10 UNIT SUBCUT (08:51)
[2023-03-07] MEDS: Insulin Lispro 100 UNIT/ML 3 ML VIAL SUBCUT ×5 (08:51→22:31)
--- NOTE | 2023-03-07 10:20 | HO.PM.IMPN ---
Subjective Subjective Date of Service: 03/07/23 Interval History: patient transferred [place] [facility] [place] in the [place]. Currently on high-flow nasal cannula. States she only uses oxygen as needed at home. States her breathing feels significantly better. Cardiovascular Cardiovascular: Reports no additional cardiovascular complaints Gastrointestinal Gastrointestinal: Reports no additional gastrointestinal complaints Genitourinary Genitourinary: Reports no additional female genitourinary complaints Physical Exam Vital Signs: Vital Signs: Last Vital Signs Temp 98.6 F 03/07/23 07:20 Pulse 98 03/07/23 07:20 Resp 18 03/07/23 07:28 BP 151/61 H 03/07/23 07:20 Pulse Ox 98 03/07/23 07:20 O2 Del Method High Flow Nasal C annula 03/07/23 07:20 O2 Flow Rate 50 03/07/23 07:20 FiO2 40 03/07/23 07:20 Oxygen Flow Rate 6 03/02/23 16:32 BMI result Body Mass Index 27.5 Elderly female lying in bed in mild distress on supplemental oxygen Neck supple, no JVD Regular rate and rhythm, S1-S2 heard Bilateral wheezing + Abdomen soft nontender, no guarding, no rigidity Patient is awake, alert and oriented to self, place, time and person ; no focal motor deficit Psych: Normal mood Objective Data Active Medications Albuterol/Ipratropium (Albuterol/Iprat 2.5/0.5mg 3 Ml Ampul.Neb) 3 ml INHALE Q4H PRN PRN Reason: Shortness of Breath/Wheezing Last Admin: 03/03/23 07:53 Dose: 3 ml Documented By: HANY Albuterol/Ipratropium (Albuterol/Iprat 2.5/0.5mg 3 Ml Ampul.Neb) 3 ml INHALE RQ4H [facility] Last Admin: 03/07/23 07:28 Dose: 3 ml Documented By: ISSAC Famotidine (Famotidine 20 Mg Tablet) 20 mg PO BID [facility] Last Admin: 03/07/23 08:50 Dose: 20 mg Documented By: EDIE Heparin Sodium (Porcine) (Heparin Sodium,Porcine 5,000 Unit/Ml Vial) 5,000 unit SUBCUT Q8H [facility] Last Admin: 03/07/23 08:50 Dose: 5,000 unit Documented By: EDIE Insulin Glargine (Insulin Glargine,Hum.Rec.Anlog 100 Unit/Ml 10 Ml Vial) 10 unit SUBCUT DAILY [facility] Last Admin: 03/07/23 08:51 Dose: 10 unit Documented By: EDIE Insulin Human Lispro (Insulin Lispro 100 Unit/Ml 3 Ml Vial) 0 unit SUBCUT QIDACHS [facility]; Protocol Last Admin: 03/07/23 08:51 Dose: 2 unit Documented By: EDIE Levothyroxine Sodium (Levothyroxine Sodium 25 Mcg Tablet) 25 mcg PO DAILY@0600 [facility] Last Admin: 03/07/23 04:54 Dose: 25 mcg Documented By: LIZBETH Pharmacy Consult (Consult Rx Perform Med Rec) 1 each MISCELLANE ONCE PRN PRN Reason: Consult order Prednisone (Prednisone 20 Mg Tablet) 40 mg PO DAILY [facility] Last Admin: 03/07/23 08:50 Dose: 40 mg Documented By: EDIE Sodium Chloride (0.9 % Sodium Chloride Flush 3 Ml Syringe) 3 ml IVFLUSH QSHIFT [facility] Last Admin: 03/07/23 04:36 Dose: Not Given Documented By: ANNA Non-Admin Reason: No Access Labs 03/06/23 05:16 03/06/23 05:16 Labs: Laboratory Results - last 24 hr 03/06/23 03/06/23 03/06/23 11:19 15:22 16:11 O2 Saturation 93.0 ABG pH at Pt Temp 7.43 ABG pCO2 at Pt Temp 51 H ABG pO2 at Pt Temp 69 L ABG HCO3 34 H ABG Base Excess (Actual) 8.8 VBG pH 7.49 H VBG pCO2 42 VBG pO2 203 VBG HCO3 32 H VBG O2 Saturation 99.0 VBG Base Excess 8.8 POC Glucose 206 H 03/06/23 03/06/23 03/07/23 16:29 20:52 00:22 O2 Saturation ABG pH at Pt Temp ABG pCO2 at Pt Temp ABG pO2 at Pt Temp ABG HCO3 ABG Base Excess (Actual) VBG pH VBG pCO2 VBG pO2 VBG HCO3 VBG O2 Saturation VBG Base Excess POC Glucose 129 H 169 H 152 H 03/07/23 07:20 O2 Saturation ABG pH at Pt Temp ABG pCO2 at Pt Temp ABG pO2 at Pt Temp ABG HCO3 ABG Base Excess (Actual) VBG pH VBG pCO2 VBG pO2 VBG HCO3 VBG O2 Saturation VBG Base Excess POC Glucose 161 H Assessment and Plan (1) Acute and chronic respiratory failure with hypoxia: Status: Acute Plan this is a 82-year-old female with pertinent history of insulin-dependent diabetes mellitus, hypothyroidism, essential hypertension, hyperlipidemia, chronic hypoxemic respiratory failure due to Asthma, SAVANNAH on CPAP with questionable compliance who presented to the ER with progressive dyspnea. Patient was intubated and admitted to the ICU on 03/03. Patient was successfully extubated to high-flow nasal cannula and transferred [place] [facility] [place] #. acute on chronic hypoxemic hypercarbic respiratory failure due to acute asthma exacerbation: Patient intubated on 03/03 and transferred [place] [facility] [place] successful extubation on 03/06. Continue p.o. steroids (on taper) and scheduled and p.r.n. DuoNebs. Patient is on supplemental oxygen at home as needed. monitor oxygen saturation and wean as tolerated. Continue home inhaler. Will consult PT for disposition #. Insulin-dependent diabetes mellitus: Patient on basal plus regimen #. hypothyroidism: On Synthroid #. mixed hyperlipidemia: On statin #. gastroesophageal reflux disease: On famotidine #. essential hypertension: Continue home antihypertensives #. SAVANNAH: Continue CPAP at bedtime DVT prophylaxis: Lovenox Diabetic diet Full code Admit as inpatient and will require two night minimum hospital stay for supplemental oxygen Time Spent With Patient Time: Total time managing care of this patient today ____ minutes. Quality Stroke Does the patient have a stroke diagnosis?: No VTE Prior VTE?: No VTE Risk Level:: Medical - moderate - high VTE Device Contraindication: N/A - Device Ordered VTE Drug Contraindication: N/A - Med Ordered
[2023-03-07 11:40] LABS: Glucose, Whole Blood 284 mg/dL (60-115)
[2023-03-07] MEDS: Enoxaparin Sodium 40 MG/0.4 ML SYRINGE SUBCUT (13:32)
[2023-03-07 17:35] LABS: Glucose, Whole Blood 400 mg/dL (60-115)
[2023-03-07] MEDS: 0.9 % Sodium Chloride Flush 3 ML SYRINGE IVFLUSH (17:57)
[2023-03-07 21:00] LABS: Glucose, Whole Blood 410 mg/dL (60-115)
[2023-03-08] VITALS (25 sets, daily range): BP systolic 129–200; BP diastolic 57–101; PULSE 78–106; RESP 18–30; TEMP 36.1–37.2; O2SAT 89–96; BMI 26.0
--- NOTE | 2023-03-08 01:18 | PC.NURSE ---
temp of 100.9 reported to the MD. UA/culture ordered and chest xray + labs.
[2023-03-08] MEDS: Acetaminophen 325 MG TABLET 650 MG PO (01:33)
[2023-03-08 02:10] LABS: Lactic Acid 1.1 mmol/L (0.5-2.0)
[2023-03-08 03:08] LABS: Appearance Urine Hazy; Color Urine Yellow; Glucose Urine UA Negative (Negative); Leukocyte Esterase Urine Negative (Negative); Nitrite Urine Negative (Negative); Specific Gravity - Urine >= 1.030 (1.005-1.025); UMIC TRIGGER UACC YES; Urine Blood Large (3+) (Negative); Urine Ketones Negative (Negative); Urine Protein 30 (1+) mg/dL (Neg-Trace)
[2023-03-08 03:46] LABS: Bacteria Urine Trace (None Seen); RBC Urine >20 /HPF (0-2); Squamous Epithelial Cell Urine 0-2 /HPF (0-2); UACC Culture Trigger YES
[2023-03-08] MEDS: Albuterol/Iprat 2.5/0.5MG 3 ML AMPUL.NEB INHALE ×6 (04:54→23:23)
[2023-03-08] MEDS: Levothyroxine Sodium 25 MCG TABLET PO (05:21)
--- NOTE | 2023-03-08 05:28 | PM.EVENT ---
Event Note Date of Service: 03/08/23 Event Note: pt w low grade fever overnight. asymptomatic otherwise. UA -ve, alctic acid normal. has evidence of infiltrate on cxr , will order blood cultures and zosyn to cover PNA Time Spent With Patient Time: Total time managing care of this patient today ____ minutes.
[2023-03-08] MEDS: Piperacillin Sodium/Tazobactam 3.375 GM in 0.9 % Sodium Chloride 50 ML IV ×2 (05:49→12:13)
[2023-03-08] MEDS: vancomycin HCL 1,250 MG in 0.9 % Sodium Chloride 250 ML 166.67 MG IV (06:14)
[2023-03-08 06:55] LABS: Basophils Percent Auto 0.1 % (0-2); Eosinophils Absolute Auto 0.1 X10*3/uL (0.0-0.4); Eosinophils Percent Auto 1.2 % (0-4); Hematocrit 37.5 % (37.0-47.0); Hemoglobin 11.3 g/dl (12.0-16.0); Imm Gran Abs Auto 0.07 X10*3/uL (0.00-0.03); Imm Gran Pct Auto 0.8 % (0.0-0.4); Lymphocytes Absolute Auto 3.2 X10*3/uL (1.2-4.9); Lymphocytes Percent Auto 35.1 % (20-40); MANUAL DIFF FLAG SCAN; Mean Corpuscular HGB Conc 30.1 g/dl (31.0-35.0); Mean Corpuscular Hemoglobin 25.9 pg (27.0-33.0); Mean Platelet Volume 10.5 fL (9.4-12.3); Monocytes Absolute Auto 0.6 X10*3/uL (0.1-1.2); Monocytes Percent Auto 6.9 % (2-11); Neutrophils Absolute Auto 5.1 x10*3/uL (2.0-8.3); Neutrophils Percent Auto 55.9 % (45-73); Platelet Count 216 X10*3/uL (160-400); Red Blood Count 4.36 X10*6/uL (4.20-5.50); Red Cell Distribution Width 15.8 % (11.0-16.0); SCAN SMEAR FLAG 1; White Blood Count 9.1 X10*3/uL (4.8-10.8)
[2023-03-08 07:21] LABS: Anion Gap 13 (12-20); Blood Urea Nitrogen 22 mg/dL (9-16); Carbon Dioxide 31 mmol/L (22-29); Chloride 105 mmol/L (96-108); Creatinine Clr Calc Pharmacy 39.1; Estimated Glomerular Filt Rate > 60; Glucose Random 130 mg/dL (60-115); Potassium 3.8 mmol/L (3.3-5.1); Sodium 145 mmol/L (135-145)
[2023-03-08 07:32] LABS: SLIDE REVIEW VERIFIED
--- NOTE | 2023-03-08 07:33 | PHA.PROG ---
Admission Date/Time: March 03, 2023 08:25 Indication:PNA Weight in k.4 kg Adjusted body weight in Kg: [place] body weight in Kg: Obesity Dosing Indication % IBW: Serum Creatinine - Last 168 Hours 03/02/23 03/04/23 03/05/23 18:17 05:03 04:58 Creatinine 0.97 1.06 0.91 03/06/23 03/08/23 05:16 06:25 Creatinine 0.77 0.80 Estimated CrCl and GFR - Last 168 Hours 03/02/23 03/04/23 03/05/23 18:17 05:03 04:58 Estim Creat Clear Calc 47.7 43.2 50.3 Estimated GFR 55 50 59 03/06/23 03/08/23 05:16 06:25 Estim Creat Clear Calc 59.2 39.1 Estimated GFR > 60 > 60 Vancomycin Loading Dose: 1250 mg Current Vancomycin Dosing Regimen: 1000 mg Q24H Date and Time for next Vancomycin Level to be drawn: 03/11 @ 0500 Pharmacist Comments on Vancomycin Plan: patient received a 23 mg/kg load dose on 03/08 @ 0614. Maintenance dose vancomycin 1000 mg (18 mg/kg) is scheduled to staty 03/09 @ 0700. Epxetced AUC 532 with a trough of 16.3. Level is scheduled to be drawn prior to 4th dose Pharmacy will montior renal function daily. Paola Lombardo, Jennifer Vancomycin dosing will take advantage of [employer] as a clinical decision support tool that uses Bayesian modeling to calculate individual patient's pharmacokinetic parameters and forecast the patient's drug concentration time course with the target goal AUC 24 range of 400 - 600 mg/L/hr.
[2023-03-08 07:44] LABS: Glucose, Whole Blood 146 mg/dL (60-115)
[2023-03-08] MEDS: Atorvastatin Calcium 80 MG TABLET PO (08:54)
[2023-03-08] MEDS: Metoprolol Tartrate 50 MG TABLET PO (08:54)
[2023-03-08] MEDS: Multivitamin TABLET 1 TAB PO (08:54)
[2023-03-08] MEDS: predniSONE 20 MG TABLET 40 MG PO (08:54)
[2023-03-08] MEDS: hydroCHLOROthiazide 12.5 MG TABLET PO (08:54)
[2023-03-08] MEDS: Insulin Glargine,Hum.rec.anlog 100 UNIT/ML 10 ML VIAL 10 UNIT SUBCUT (08:54)
[2023-03-08] MEDS: Famotidine 20 MG TABLET PO ×2 (08:54→19:49)
[2023-03-08] MEDS: Enoxaparin Sodium 40 MG/0.4 ML SYRINGE SUBCUT (08:55)
--- NOTE | 2023-03-08 11:32 | MHC.CLN ---
F/U PT EXTUBATED AND TRANSFERRED TO [facility] FLOOR DIET RX: 2200DM-RECOMMEND 1200DM BASED ON IBW PO INTAKE 100% X [address] TO FOLLOW WEEKLY
--- NOTE | 2023-03-08 11:35 | HO.PM.IMPN ---
Subjective Subjective Date of Service: 03/08/23 Interval History: f/u on acute hypoxic respiratory failure interval history: overall better, On high flow and Physical Exam Vital Signs: Vital Signs: Last Vital Signs Temp 97.7 F 03/08/23 07:31 Pulse 90 03/08/23 07:31 Resp 18 03/08/23 07:31 BP 133/57 L 03/08/23 07:31 Pulse Ox 90 L 03/08/23 08:58 O2 Del Method High Flow Nasal C annula 03/08/23 08:58 O2 Flow Rate 35 03/08/23 07:31 FiO2 33.1 03/08/23 07:31 Oxygen Flow Rate 6 03/02/23 16:32 BMI result Body Mass Index 26.0 Const: Other: General: AO X 3, no acute distress Resp: CTA bilateral CVS: S1,S2,RRR GI: +BS, NT, no distention Skin: No rash Neuro: motor grossly intact Psych: appropriate affect Objective Data Active Medications Acetaminophen (Acetaminophen 325 Mg Tablet) 650 mg PO Q6H PRN PRN Reason: fever Last Admin: 03/08/23 01:33 Dose: 650 mg Documented By: HALEY Albuterol/Ipratropium (Albuterol/Iprat 2.5/0.5mg 3 Ml Ampul.Neb) 3 ml INHALE Q4H PRN PRN Reason: Shortness of Breath/Wheezing Last Admin: 03/03/23 07:53 Dose: 3 ml Documented By: HANY Albuterol/Ipratropium (Albuterol/Iprat 2.5/0.5mg 3 Ml Ampul.Neb) 3 ml INHALE RQ4H [facility] Last Admin: 03/08/23 11:34 Dose: 3 ml Documented By: TR Atorvastatin Calcium (Atorvastatin Calcium 80 Mg Tablet) 80 mg PO DAILY [facility] Last Admin: 03/08/23 08:54 Dose: 80 mg Documented By: JOHANNA Enoxaparin Sodium (Enoxaparin Sodium 40 Mg/0.4 Ml Syringe) 40 mg SUBCUT Q24H [facility] Last Admin: 03/08/23 08:55 Dose: 40 mg Documented By: JOHANNA Famotidine (Famotidine 20 Mg Tablet) 20 mg PO BID [facility] Last Admin: 03/08/23 08:54 Dose: 20 mg Documented By: JOHANNA Fluticasone Propionate (Fluticasone Propionate 100 Mcg Blst.W.Dev) 2 puff INHALE RBID [facility] Last Admin: 03/08/23 11:22 Dose: Not Given Documented By: TR Non-Admin Reason: pt not able to Fluticasone Propionate (Fluticasone Propionate Nasal 16 Gm [place]) 2 spray NOSTRIL-B DAILY [facility] Last Admin: 03/08/23 08:08 Dose: Not Given Documented By: TR Non-Admin Reason: not able to do Hydrochlorothiazide (Hydrochlorothiazide 12.5 Mg Tablet) 12.5 mg PO DAILY [facility]; Protocol Last Admin: 03/08/23 08:54 Dose: 12.5 mg Documented By: JOHANNA Piperacillin Sod/Tazobactam (Sod 3.375 gm/ Sodium Chloride) 50 mls @ 100 mls/hr IV Q6H [facility] Last Infusion: 03/08/23 06:26 Dose: 0 mls/hr Documented By: HALEY Vancomycin HCl 1,000 mg/ (Sodium Chloride) 270 mls @ 270 mls/hr IV Q24H [facility] Insulin Glargine (Insulin Glargine,Hum.Rec.Anlog 100 Unit/Ml 10 Ml Vial) 10 unit SUBCUT DAILY [facility] Last Admin: 03/08/23 08:54 Dose: 10 unit Documented By: JOHANNA Insulin Human Lispro (Insulin Lispro 100 Unit/Ml 3 Ml Vial) 0 unit SUBCUT QIDACHS [facility]; Protocol Last Admin: 03/08/23 07:47 Dose: Not Given Documented By: JOHANNA Non-Admin Reason: No Insulin Coverage Levothyroxine Sodium (Levothyroxine Sodium 25 Mcg Tablet) 25 mcg PO DAILY@0600 [facility] Last Admin: 03/08/23 05:21 Dose: 25 mcg Documented By: HALEY Metoprolol Tartrate (Metoprolol Tartrate 50 Mg Tablet) 50 mg PO DAILY [facility]; Protocol Last Admin: 03/08/23 08:54 Dose: 50 mg Documented By: JOHANNA Multivitamins/Vitamin C (Multivitamin Tablet) 1 tab PO DAILY [facility] Last Admin: 03/08/23 08:54 Dose: 1 tab Documented By: JOHANNA Pharmacy Consult (Consult Rx Perform Med Rec) 1 each MISCELLANE ONCE PRN PRN Reason: Consult order Pharmacy Consult (Consult Rx Vancomycin Dosing) 1 each MISCELLANE DAILY PRN PRN Reason: Consult order Prednisone (Prednisone 20 Mg Tablet) 40 mg PO DAILY [facility] Last Admin: 03/08/23 08:54 Dose: 40 mg Documented By: JOHANNA Sodium Chloride (0.9 % Sodium Chloride Flush 3 Ml Syringe) 3 ml IVFLUSH QSHIFT [facility] Last Admin: 03/08/23 08:53 Dose: Not Given Documented By: JOHANNA Non-Admin Reason: IV Running Tizanidine HCl (Tizanidine Hcl 4 Mg Tablet) 4 mg PO BEDTIME PRN PRN Reason: muscle spasm/cramps Labs 03/08/23 06:21 03/08/23 06:25 Labs: Laboratory Results - last 24 hr 03/07/23 03/07/23 03/07/23 11:26 17:32 20:17 MCV MCH MCHC RDW Plt Count MPV Immature Gran % (Auto) Neut % (Auto) Lymph % (Auto) [place] % (Auto) Eos % (Auto) Baso % (Auto) Lymph # (Auto) [place] # (Auto) Eos # (Auto) Baso # (Auto) Abs Immat Gran (auto) Absolute Neuts (auto) Absolute Nucleated RBC Nucleated RBC % (auto) Smear Tech's Comments Anion Gap Estim Creat Clear Calc Estimated GFR POC Glucose 284 H 400 H* 410 H* Random Glucose Lactic Acid Calcium Urine Color Urine Appearance Urine pH Ur Specific [place] Urine Protein Urine Glucose (UA) Urine Ketones Urine Blood Urine Nitrite Ur Leukocyte Esterase Urine RBC Urine WBC Ur Squamous Epith Cells Urine Bacteria Hyaline Casts 03/08/23 03/08/23 03/08/23 01:47 02:35 06:21 MCV 86.0 MCH 25.9 L MCHC 30.1 L RDW 15.8 Plt Count 216 MPV 10.5 Immature Gran % (Auto) 0.8 H Neut % (Auto) 55.9 Lymph % (Auto) 35.1 [place] % (Auto) 6.9 Eos % (Auto) 1.2 Baso % (Auto) 0.1 Lymph # (Auto) 3.2 [place] # (Auto) 0.6 Eos # (Auto) 0.1 Baso # (Auto) 0.0 Abs Immat Gran (auto) 0.07 H Absolute Neuts (auto) 5.1 Absolute Nucleated RBC 0.000 Nucleated RBC % (auto) 0.0 Smear Tech's Comments VERIFIED Anion Gap Estim Creat Clear Calc Estimated GFR POC Glucose Random Glucose Lactic Acid 1.1 Calcium Urine Color Yellow Urine Appearance Hazy Urine pH 6.0 Ur Specific [place] >= 1.030 H Urine Protein 30 (1+) H Urine Glucose (UA) Negative Urine Ketones Negative Urine Blood Large (3+) H Urine Nitrite Negative Ur Leukocyte Esterase Negative Urine RBC >20 H Urine WBC 6-10 H Ur Squamous Epith Cells 0-2 Urine Bacteria Trace Hyaline Casts 3-5 03/08/23 03/08/23 06:25 07:28 MCV MCH MCHC RDW Plt Count MPV Immature Gran % (Auto) Neut % (Auto) Lymph % (Auto) [place] % (Auto) Eos % (Auto) Baso % (Auto) Lymph # (Auto) [place] # (Auto) Eos # (Auto) Baso # (Auto) Abs Immat Gran (auto) Absolute Neuts (auto) Absolute Nucleated RBC Nucleated RBC % (auto) Smear Tech's Comments Anion Gap 13 Estim Creat Clear Calc 39.1 Estimated GFR > 60 POC Glucose 146 H Random Glucose 130 H Lactic Acid Calcium 9.0 Urine Color Urine Appearance Urine pH Ur Specific [place] Urine Protein Urine Glucose (UA) Urine Ketones Urine Blood Urine Nitrite Ur Leukocyte Esterase Urine RBC Urine WBC Ur Squamous Epith Cells Urine Bacteria Hyaline Casts Microbiology Microbiology Results: Microbiology 03/02/23 18:17 Blood Culture - Final Blood - Venous No growth after 5 days. 03/02/23 16:42 Blood Culture - Final Blood - Venous No growth after 5 days. Assessment and Plan (1) Acute and chronic respiratory failure with hypoxia: Status: Acute Plan 82-year-old female with pertinent history of insulin-dependent diabetes mellitus, hypothyroidism, essential hypertension, hyperlipidemia, chronic hypoxemic respiratory failure due to Asthma, SAVANNAH on CPAP with questionable compliance who presented to the ER with progressive dyspnea. Patient was intubated and admitted to the ICU on 03/03. Patient was successfully extubated to high-flow nasal cannula and transferred to [facility] on 03/06 #. acute on chronic hypoxemic hypercarbic respiratory failure due to acute severe persistent asthma exacerbation: Patient was intubated on 03/03 and transferred to [facility] after successful extubation on 03/06. Continue p.o. steroids (on taper) and scheduled and p.r.n. DuoNebs. Patient is on supplemental oxygen at home as needed. monitor oxygen saturation and wean as tolerated. Continue home inhaler. Wean off High flow #. Insulin-dependent diabetes mellitus: Patient on basal plus SSI #. hypothyroidism: On Synthroid #. mixed hyperlipidemia: On statin #. gastroesophageal reflux disease: On famotidine #. essential hypertension: Continue home antihypertensives #. SAVANNAH: Continue CPAP at bedtime DVT prophylaxis: Lovenox Diabetic diet Full code Need for inpatient: acute hypoxic respiratory falure needing intubation now on high flow and need O2 adjustment Time Spent With Patient Time: Total time managing care of this patient today ____ minutes. Quality Stroke Does the patient have a stroke diagnosis?: No VTE Prior VTE?: No VTE Risk Level:: Medical - moderate - high VTE Device Contraindication: N/A - Device Ordered VTE Drug Contraindication: N/A - Med Ordered
[2023-03-08 11:47] LABS: Glucose, Whole Blood 299 mg/dL (60-115)
[2023-03-08] MEDS: Insulin Lispro 100 UNIT/ML 3 ML VIAL SUBCUT ×2 (12:13→19:49)
--- NOTE | 2023-03-08 14:17 | MHC.CM.PN ---
EMR REVIEWED AND PER MD ROUNDS, PT NOT MEDICALLY CLEARED FOR DC. (HIGH FLOW 02, AWAITING PT EVAL) CM WILL CONTINUE TO FOLLOW FOR DC NEEDS.
[2023-03-08 17:01] LABS: Glucose, Whole Blood 427 mg/dL (60-115)
[2023-03-08] MEDS: QUEtiapine Fumarate 25 MG TABLET 12.5 MG PO (19:13)
--- NOTE | 2023-03-08 19:26 | PC.NURSE ---
Assuemd care of patient at this time. Patient agitated, paranoid, believes nurses are after her money, family at bedside attempting to calm her down. Seroquel prn given.
[2023-03-08] MEDS: 0.9 % Sodium Chloride Flush 3 ML SYRINGE IVFLUSH (19:49)
[2023-03-08] MEDS: LORazepam 0.5 MG TABLET 0.25 MG PO (19:49)
[2023-03-08] MEDS: TiZANidine HCL 4 MG TABLET PO (19:49)
--- NOTE | 2023-03-08 19:49 | PC.NURSE ---
Patient continues agitated, family at bedside and able to convince patient to take po Lorazepam at this time for agitation/anxiety.
[2023-03-08] MEDS: OLANZapine 10 MG VIAL IM (20:30)
--- NOTE | 2023-03-08 20:30 | PC.NURSE ---
Patient harm to self, ripped off oxygen, ripped IV out of place, screaming, became combative toward staff. Security called and provider MD Ilia aware. IM zyprexa administered.
--- NOTE | 2023-03-08 20:37 | PM.EVENT ---
Event Note Date of Service: 03/08/23 Event Note: Pt extremiely aggitated pulling off hi flow, ripped out IV line. RN administered prn lorazepam and seroquel 2.5mg without effect. 10mg zyprexa ordered and administered with good effect. Time Spent With Patient Time: Total time managing care of this patient today ____ minutes.
--- NOTE | 2023-03-08 20:48 | PC.NURSE ---
Patient continues combative and ripping off oxygen, desaturating at this time, soft restraints applied for her safety.
--- NOTE | 2023-03-08 22:38 | PC.NURSE ---
Patient continues agitated, soft restraints in place, restless, paranoid, stating she needs a knife to go after the people who tied her down. Daughter at bedside, her attempts to calm patient down are not effective at this time, but still agrees to stay overnight to keep patient company. 1:1 at bedside, virtual sitter also in place. Continuous pulse ox monitoring in place.
[2023-03-08 22:42] LABS: Glucose, Whole Blood 121 mg/dL (60-115)
[2023-03-08] MEDS: LORazepam 1 MG TABLET PO (22:59)
[2023-03-09] VITALS (15 sets, daily range): BP systolic 126–167; BP diastolic 58–105; PULSE 77–100; RESP 15–26; TEMP 36.3–37.1; O2SAT 91–97; BMI 25.9
[2023-03-09] MEDS: Piperacillin Sodium/Tazobactam 3.375 GM in 0.9 % Sodium Chloride 50 ML IV ×5 (02:37→23:52)
[2023-03-09] MEDS: 0.9 % Sodium Chloride Flush 3 ML SYRINGE IVFLUSH ×4 (02:37→23:53)
[2023-03-09 03:35] LABS: Glucose, Whole Blood 157 mg/dL (60-115)
[2023-03-09] MEDS: Albuterol/Iprat 2.5/0.5MG 3 ML AMPUL.NEB INHALE ×5 (04:08→20:07)
[2023-03-09] MEDS: vancomycin HCL 1,000 MG in 0.9 % Sodium Chloride 250 ML 270 MG IV (06:36)
[2023-03-09 07:16] LABS: Glucose, Whole Blood 128 mg/dL (60-115)
[2023-03-09 08:44] LABS: ABG Base Excess 10.5 mmol/L; ABG HCO3 37 mmol/L (22-26); ABG pCO2 61 mmHg (32-45); ABG pH 7.39 (7.35-7.45); ABG pO2 69 mmHg (83-108)
--- NOTE | 2023-03-09 09:35 | PC.NURSE ---
on assessment, pt is very lethargic and drowsy. pt responsed to her name and opened her eyes but went back to sleep right away. pt PO morning meds were held due to the risk of aspiration. Pt is now on Avap machine due to very high CO2 level. MD Dr Vogel notified. Continue to monitor.
[2023-03-09] MEDS: Enoxaparin Sodium 40 MG/0.4 ML SYRINGE SUBCUT (10:37)
[2023-03-09 11:07] LABS: Glucose, Whole Blood 160 mg/dL (60-115)
[2023-03-09 11:21] LABS: Estimated Glomerular Filt Rate > 60
[2023-03-09 11:54] LABS: ABG Refer to POC result
--- NOTE | 2023-03-09 12:01 | PC.RT ---
{Pt placed on Bipap with restraints, per MD order. Pt sleepy,. Slighlty acidodic, confirmed from ABG drawn. Md notified that patient requires sitter due to the use of restraints. Md denied an order for a sitter. RT took patient off BIPAP and placed on HFNC. Rt noftifed Nursing supervisor loading.
[2023-03-09] MEDS: Insulin Lispro 100 UNIT/ML 3 ML VIAL SUBCUT ×3 (12:58→20:58)
[2023-03-09 16:06] LABS: Glucose, Whole Blood 247 mg/dL (60-115)
--- NOTE | 2023-03-09 18:46 | P.PNIM_ITS ---
Subjective Subjective Date of Service: 03/09/23 Interval History: Patient was very agitated overnight, restless, anxious and required ativan for anxiety, this morning appear lethargic but later arouse. ABG showed nl PH PCO2 of 61 and was briefly on BiPAP before returning to high flow and calm the rest of the day Physical Exam Vital Signs: Vital Signs: Last Vital Signs Temp 97.4 F 03/09/23 15:56 Pulse 90 03/09/23 15:56 Resp 17 03/09/23 15:56 BP 140/59 H 03/09/23 15:56 Pulse Ox 91 L 03/09/23 15:56 O2 Del Method High Flow Nasal C annula 03/09/23 15:56 O2 Flow Rate 35 03/09/23 06:58 FiO2 41 03/09/23 06:58 Oxygen Flow Rate 6 03/02/23 16:32 BMI result Body Mass Index 25.9 Const: Other: General: alert to self, no acute distress ( Resp: CTA bilateral CVS: S1,S2,RRR GI: +BS, NT, no distention Skin: No rash Neuro: motor grossly intact Psych: appropriate affect Objective Data Active Medications Acetaminophen (Acetaminophen 325 Mg Tablet) 650 mg PO Q6H PRN PRN Reason: fever Last Admin: 03/08/23 01:33 Dose: 650 mg Documented By: HALEY Albuterol/Ipratropium (Albuterol/Iprat 2.5/0.5mg 3 Ml Ampul.Neb) 3 ml INHALE Q4H PRN PRN Reason: Shortness of Breath/Wheezing Last Admin: 03/03/23 07:53 Dose: 3 ml Documented By: HANY Albuterol/Ipratropium (Albuterol/Iprat 2.5/0.5mg 3 Ml Ampul.Neb) 3 ml INHALE RQ4H ANUJ Last Admin: 03/09/23 15:24 Dose: 3 ml Documented By: TR Atorvastatin Calcium (Atorvastatin Calcium 80 Mg Tablet) 80 mg PO DAILY [facility] Last Admin: 03/09/23 09:28 Dose: Not Given Documented By: CLAUDY Non-Admin Reason: pt is very lethargic Enoxaparin Sodium (Enoxaparin Sodium 40 Mg/0.4 Ml Syringe) 40 mg SUBCUT Q24H [facility] Last Admin: 03/09/23 10:37 Dose: 40 mg Documented By: CLAUDY Famotidine (Famotidine 20 Mg Tablet) 20 mg PO BID [facility] Last Admin: 03/09/23 09:28 Dose: Not Given Documented By: CLAUDY Non-Admin Reason: pt is very lethargic \ Fluticasone Propionate (Fluticasone Propionate 100 Mcg Blst.W.Dev) 2 puff INHALE RBID [facility] Last Admin: 03/09/23 08:32 Dose: Not Given Documented By: TR Non-Admin Reason: not able to perform Fluticasone Propionate (Fluticasone Propionate Nasal 16 Gm [place]) 2 spray NO STRIL-B DAILY [facility] Last Admin: 03/09/23 09:29 Dose: Not Given Documented By: CLAUDY Non-Admin Reason: pt in on avaps machine Hydrochlorothiazide (Hydrochlorothiazide 12.5 Mg Tablet) 12.5 mg PO DAILY [facility], [facility]; Protocol Last Admin: 03/09/23 09:29 Dose: Not Given Documented By: CLAUDY Non-Admin Reason: pt is very lethargic Piperacillin Sod/Tazobactam (Sod 3.375 gm/ Sodium Chloride) 50 mls @ 100 mls/hr IV Q6H [facility] Last Infusion: 03/09/23 17:40 Dose: 0 mls/hr Documented By: CLAUDY Vancomycin HCl 1,000 mg/ (Sodium Chloride) 270 mls @ 270 mls/hr IV Q24H [facility] Last Infusion: 03/09/23 07:40 Dose: 0 mls/hr Documented By: CLAUDY Insulin Glargine (Insulin Glargine,Hum.Rec.Anlog 100 Unit/Ml 10 Ml Vial) 10 unit SUBCUT DAILY [facility] Last Admin: 03/09/23 09:30 Dose: Not Given Documented By: CLAUDY Non-Admin Reason: pt did not eat much Insulin Human Lispro (Insulin Lispro 100 Unit/Ml 3 Ml Vial) 0 unit SUBCUT QIDACHS [facility], [facility]; Protocol Last Admin: 03/09/23 17:05 Dose: 4 unit Documented By: CLAUDY Levothyroxine Sodium (Levothyroxine Sodium 25 Mcg Tablet) 25 mcg PO DAILY@0600 [facility] Last Admin: 03/09/23 09:27 Dose: Not Given Documented By: CLAUDY Non-Admin Reason: pt is very lethargic Metoprolol Tartrate (Metoprolol Tartrate 50 Mg Tablet) 50 mg PO DAILY [facility]; Protocol Last Admin: 03/09/23 09:31 Dose: Not Given Documented By: CLAUDY Non-Admin Reason: pt is very lethargic Multivitamins/Vitamin C (Multivitamin Tablet) 1 tab PO DAILY [facility] Last Admin: 03/09/23 09:31 Dose: Not Given Documented By: CLAUDY Non-Admin Reason: pt is very lethargic Pharmacy Consult (Consult Rx Perform Med Rec) 1 each MISCELLANE ONCE PRN PRN Reason: Consult order Pharmacy Consult (Consult Rx Vancomycin Dosing) 1 each MISCELLANE DAILY PRN PRN Reason: Consult order Prednisone (Prednisone 20 Mg Tablet) 40 mg PO DAILY [facility] Last Admin: 03/09/23 09:31 Dose: Not Given Documented By: CLAUDY Non-Admin Reason: pt is very lethargic Quetiapine Fumarate (Quetiapine Fumarate 25 Mg Tablet) 12.5 mg PO Q6H PRN PRN Reason: anxiety Last Admin: 03/08/23 19:13 Dose: 12.5 mg Documented By: VICTORINA Sodium Chloride (0.9 % Sodium Chloride Flush 3 Ml Syringe) [facility] Last Admin: 03/09/23 17:06 Dose: 3 ml Documented By: CLAUDY Tizanidine HCl (Tizanidine Hcl 4 Mg Tablet) 4 mg PO BEDTIME PRN PRN Reason: muscle spasm/cramps Last Admin: 03/08/23 19:49 Dose: 4 mg Documented By: VICTORINA Labs 03/08/23 06:21 03/09/23 07:42 Labs: Laboratory Results - last 24 hr 03/08/23 03/09/23 03/09/23 22:38 03:23 07:01 O2 Saturation ABG pH at Pt Temp ABG pCO2 at Pt Temp ABG pO2 at Pt Temp ABG HCO3 ABG Base Excess (Actual) Estim Creat Clear Calc Estimated GFR POC Glucose 121 H 157 H 128 H 03/09/23 03/09/23 03/09/23 07:42 08:35 11:02 O2 Saturation 92.0 ABG pH at Pt Temp 7.39 ABG pCO2 at Pt Temp 61 H* ABG pO2 at Pt Temp 69 L ABG HCO3 37 H ABG Base Excess (Actual) 10.5 Estim Creat Clear Calc 40.0 Estimated GFR > 60 POC Glucose 160 H 03/09/23 16:02 O2 Saturation ABG pH at Pt Temp ABG pCO2 at Pt Temp ABG pO2 at Pt Temp ABG HCO3 ABG Base Excess (Actual) Estim Creat Clear Calc Estimated GFR POC Glucose 247 H Microbiology Microbiology Results: Microbiology 03/08/23 Unknown Urine Culture - Final Urine clean catch - Urine siegel top No growth. 03/08/23 01:47 Blood Culture - Preliminary Blood - Venous No growth after 24 hours. 03/08/23 01:47 Blood Culture - Preliminary Blood - Venous No growth after 24 hours. Assessment and Plan (1) Acute and chronic respiratory failure with hypoxia: Status: Acute Plan 82-year-old female with pertinent history of insulin-dependent diabetes mellitus, hypothyroidism, essential hypertension, hyperlipidemia, chronic hypoxemic respiratory failure due to Asthma, SAVANNAH on CPAP with questionable compliance who presented to the ER with progressive dyspnea. Patient was intubated and admitted to the ICU on 03/03. Patient was successfully extubated to high-flow nasal cannula and transferred to [facility] on 03/06 #. acute on chronic hypoxemic hypercarbic respiratory failure due to acute severe persistent asthma exacerbation: Patient was intubated on 03/03 and transferred to [facility]MC after successful extubation on 03/06. Continue p.o. steroids (on taper) and scheduled and p.r.n. DuoNebs. Patient is on supplemental oxygen at home as needed. monitor oxygen saturation and wean as tolerated. Continue home inhaler. Wean off High flow as joce, BiPAP PRN and has to be awake #. Insulin-dependent diabetes mellitus: Patient on basal plus SSI #. hypothyroidism: On Synthroid #. mixed hyperlipidemia: On statin #. gastroesophageal reflux disease: On famotidine #. essential hypertension: Continue home antihypertensives #. SAVANNAH: Continue CPAP at bedtime # Agiation, likely sun downing if need low dose serequel or Zyprexa to control symptoms DVT prophylaxis: Lovenox Diabetic diet Full code Need for inpatient: acute hypoxic respiratory falure needing intubation now on high flow and need O2 adjustment discussed with both daughter and son at bedside Time Spent With Patient Time: Total time managing care of this patient today ____ minutes. Quality Stroke Does the patient have a stroke diagnosis?: No VTE Prior VTE?: No VTE Risk Level:: Medical - moderate - high VTE Device Contraindication: N/A - Device Ordered VTE Drug Contraindication: N/A - Med Ordered
[2023-03-09 20:50] LABS: Glucose, Whole Blood 266 mg/dL (60-115)
[2023-03-09] MEDS: Famotidine 20 MG TABLET PO (21:02)
[2023-03-10] VITALS (16 sets, daily range): BP systolic 115–160; BP diastolic 60–93; PULSE 66–105; RESP 15–20; TEMP 37–37.2; O2SAT 88–96; BMI 26.8
[2023-03-10] MEDS: Albuterol/Iprat 2.5/0.5MG 3 ML AMPUL.NEB INHALE ×4 (00:35→11:10)
[2023-03-10] MEDS: Piperacillin Sodium/Tazobactam 3.375 GM in 0.9 % Sodium Chloride 50 ML IV ×3 (05:59→18:05)
[2023-03-10] MEDS: vancomycin HCL 1,000 MG in 0.9 % Sodium Chloride 250 ML 270 MG IV (06:36)
[2023-03-10 07:11] LABS: Hemoglobin 10.9 g/dl (12.0-16.0); Mean Corpuscular HGB Conc 30.3 g/dl (31.0-35.0); Mean Corpuscular Volume 85.9 fL (80.0-98.0); Mean Platelet Volume 10.1 fL (9.4-12.3); Platelet Count 226 X10*3/uL (160-400); Red Blood Count 4.19 X10*6/uL (4.20-5.50); Red Cell Distribution Width 15.9 % (11.0-16.0); White Blood Count 7.6 X10*3/uL (4.8-10.8)
[2023-03-10 07:37] LABS: Glucose, Whole Blood 165 mg/dL (60-115)
[2023-03-10 07:39] LABS: Anion Gap 10 (12-20); Blood Urea Nitrogen 19 mg/dL (9-16); Calcium 9.1 mg/dL (8.4-10.2); Carbon Dioxide 33 mmol/L (22-29); Chloride 105 mmol/L (96-108); Creatinine Clr Calc Pharmacy 40.2; Estimated Glomerular Filt Rate > 60; Glucose Random 168 mg/dL (60-115); Sodium 144 mmol/L (135-145)
[2023-03-10] MEDS: Insulin Glargine,Hum.rec.anlog 100 UNIT/ML 10 ML VIAL 10 UNIT SUBCUT (07:52)
[2023-03-10] MEDS: Insulin Lispro 100 UNIT/ML 3 ML VIAL SUBCUT ×3 (07:53→16:40)
--- NOTE | 2023-03-10 07:53 | HE.PHANOTE ---
Re: vanco dosing Renal function stable. Trough on 03/11 @0500. Continue on current therapy.
--- NOTE | 2023-03-10 08:59 | P.PNIM_ITS ---
Subjective Subjective Date of Service: 03/10/23 Interval History: seen in f/u, daughter present. Daughter states that patient did well yesterday, no agiation, mostly on high flow, interacting with family and eating well. Slept well last night Physical Exam Vital Signs: Vital Signs: Last Vital Signs Temp 98.8 F 03/10/23 07:41 Pulse 94 03/10/23 08:11 Resp 18 03/10/23 08:11 BP 139/60 03/10/23 07:41 Pulse Ox 91 L 03/10/23 07:41 O2 Del Method BiPAP 03/10/23 07:41 O2 Flow Rate 55 03/09/23 23:54 FiO2 32 03/09/23 23:54 Oxygen Flow Rate 6 03/02/23 16:32 BMI result Body Mass Index 26.8 Const: Other: General: alert to self, no acute distress Resp: CTA bilateral but dimished, no accessory muscle use CVS: S1,S2,RRR GI: +BS, NT, no distention Skin: No rash Neuro: motor grossly intact Psych: appropriate affect Objective Data Active Medications Acetaminophen (Acetaminophen 325 Mg Tablet) 650 mg PO Q6H PRN PRN Reason: fever Last Admin: 03/08/23 01:33 Dose: 650 mg Documented By: HALEY Albuterol/Ipratropium (Albuterol/Iprat 2.5/0.5mg 3 Ml Ampul.Neb) 3 ml INHALE RQ4H [facility] Last Admin: 03/10/23 08:11 Dose: 3 ml Documented By: NOREEN Atorvastatin Calcium (Atorvastatin Calcium 80 Mg Tablet) 80 mg PO DAILY [facility] Last Admin: 03/09/23 09:28 Dose: Not Given Documented By: CLAUDY Non-Admin Reason: pt is very lethargic Enoxaparin Sodium (Enoxaparin Sodium 40 Mg/0.4 Ml Syringe) 40 mg SUBCUT Q24H [facility] Last Admin: 03/09/23 10:37 Dose: 40 mg Documented By: CLAUDY Famotidine (Famotidine 20 Mg Tablet) 20 mg PO BID [facility] Last Admin: 03/09/23 21:02 Dose: 20 mg Documented By: MELCHOR Fluticasone Propionate (Fluticasone Propionate 100 Mcg Blst.W.Dev) 2 puff INHALE RBID [facility] Last Admin: 03/10/23 08:19 Dose: Not Given Documented By: NOREEN Non-Admin Reason: Patient Condition Contraindication Fluticasone Propionate (Fluticasone Propionate Nasal 16 Gm [place]) 2 spray NOSTRIL-B DAILY [facility] Last Admin: 03/09/23 09:29 Dose: Not Given Documented By: CLAUDY Non-Admin Reason: pt in on avaps machine Hydrochlorothiazide (Hydrochlorothiazide 12.5 Mg Tablet) 12.5 mg PO DAILY [facility]; Protocol Last Admin: 03/09/23 09:29 Dose: Not Given Documented By: CLAUDY Non-Admin Reason: pt is very lethargic Piperacillin Sod/Tazobactam (Sod 3.375 gm/ Sodium Chloride) 50 mls @ 100 mls/hr IV Q6H [facility] Last Infusion: 03/10/23 06:37 Dose: 0 mls/hr Documented By: SANDRO Vancomycin HCl 1,000 mg/ (Sodium Chloride) 270 mls @ 270 mls/hr IV Q24H [facility] Last Admin: 03/10/23 06:36 Dose: 270 mls/hr Documented By: SANDRO Insulin Glargine (Insulin Glargine,Hum.Rec.Anlog 100 Unit/Ml 10 Ml Vial) 10 unit SUBCUT DAILY [facility] Last Admin: 03/10/23 07:52 Dose: 10 unit Documented By: JASON Insulin Human Lispro (Insulin Lispro 100 Unit/Ml 3 Ml Vial) 0 unit SUBCUT QIDACHS [facility]; Protocol Last Admin: 03/10/23 07:53 Dose: 2 unit Documented By: JASON Levothyroxine Sodium (Levothyroxine Sodium 25 Mcg Tablet) 25 mcg PO DAILY@0600 [facility] Last Admin: 03/10/23 06:00 Dose: Not Given Documented By: SANDRO Non-Admin Reason: Pt lethargic, sleeping Metoprolol Tartrate (Metoprolol Tartrate 50 Mg Tablet) 50 mg PO DAILY [facility]; Protocol Last Admin: 03/09/23 09:31 Dose: Not Given Documented By: CLAUDY Non-Admin Reason: pt is very lethargic Multivitamins/Vitamin C (Multivitamin Tablet) 1 tab PO DAILY [facility] Last Admin: 03/09/23 09:31 Dose: Not Given Documented By: CLAUDY Non-Admin Reason: pt is very lethargic Pharmacy Consult (Consult Rx Perform Med Rec) 1 each MISCELLANE ONCE PRN PRN Reason: Consult order Pharmacy Consult (Consult Rx Vancomycin Dosing) 1 each MISCELLANE DAILY PRN PRN Reason: Consult order Prednisone (Prednisone 20 Mg Tablet) 20 mg PO DAILY ANUJ Quetiapine Fumarate (Quetiapine Fumarate 25 Mg Tablet) 12.5 mg PO Q6H PRN PRN Reason: anxiety Last Admin: 03/08/23 19:13 Dose: 12.5 mg Documented By: VICTORINA Sodium Chloride (0.9 % Sodium Chloride Flush 3 Ml Syringe) 3 ml IVFLUSH QSHIFT ANUJ Last Admin: 03/10/23 07:59 Dose: Not Given Documented By: JASON Non-Admin Reason: IV Running Tizanidine HCl (Tizanidine Hcl 4 Mg Tablet) 4 mg PO BEDTIME PRN PRN Reason: muscle spasm/cramps Last Admin: 03/08/23 19:49 Dose: 4 mg Documented By: VICTORINA Labs 03/10/23 06:54 03/10/23 06:54 Labs: Laboratory Results - last 24 hr 03/09/23 03/09/23 03/09/23 07:42 11:02 16:02 MCV MCH MCHC RDW Plt Count MPV Absolute Nucleated RBC Nucleated RBC % (auto) Anion Gap Estim Creat Clear Calc 40.0 Estimated GFR > 60 POC Glucose 160 H 247 H Random Glucose Calcium 03/09/23 03/10/23 03/10/23 20:42 06:54 06:54 MCV 85.9 MCH 26.0 L MCHC 30.3 L RDW 15.9 Plt Count 226 MPV 10.1 Absolute Nucleated RBC 0.000 Nucleated RBC % (auto) 0.0 Anion Gap 10 L Estim Creat Clear Calc 40.2 Estimated GFR > 60 POC Glucose 266 H Random Glucose 168 H Calcium 9.1 03/10/23 07:33 MCV MCH MCHC RDW Plt Count MPV Absolute Nucleated RBC Nucleated RBC % (auto) Anion Gap Estim Creat Clear Calc Estimated GFR POC Glucose 165 H Random Glucose Calcium Microbiology Microbiology Results: Microbiology 03/08/23 01:47 Blood Culture - Preliminary Blood - Venous No growth after 48 hours. 03/08/23 01:47 Blood Culture - Preliminary Blood - Venous No growth after 48 hours. 03/08/23 Unknown Urine Culture - Final Urine clean catch - Urine siegel top No growth. Assessment and Plan (1) Acute and chronic respiratory failure with hypoxia: Status: Acute Plan 82-year-old female with pertinent history of insulin-dependent diabetes mellitus, hypothyroidism, essential hypertension, hyperlipidemia, chronic hypoxemic respiratory failure due to Asthma, SAVANNAH on CPAP with questionable compliance who presented to the ER with progressive dyspnea. Patient was intubated and admitted to the ICU on 03/03. Patient was successfully extubated to high-flow nasal cannula and transferred to [facility] on 03/06 #. acute on chronic hypoxemic hypercarbic respiratory failure due to acute severe persistent asthma exacerbation: Patient was intubated on 03/03 and transferred to [facility] after successful extubation on 03/06. Continue p.o. steroi ds z(lower to 20 today) and scheduled and p.r.n. DuoNebs. Patient is on supplemental oxygen at home as needed. monitor oxygen saturation and wean as tolerated. Continue home inhaler. Wean off High flow as joce, BiPAP at bed time and PRN during the day #. Insulin-dependent diabetes mellitus: Patient on basal plus SSI, hyperglycemia due steroid, lower dose #. hypothyroidism: On Synthroid #. mixed hyperlipidemia: On statin #. gastroesophageal reflux disease: On famotidine #. essential hypertension: Continue home antihypertensives #. SAVANNAH: Continue CPAP at bedtime # Agiation, likely sun downing if need low dose serequel or Zyprexa to control symptoms DVT prophylaxis: Lovenox Diabetic diet Full code Need for inpatient: acute hypoxic respiratory falure needing intubation now on high flow and need O2 adjustment discussed with daughter at bedside Time Spent With Patient Time: Total time managing care of this patient today ____ minutes. Quality Stroke Does the patient have a stroke diagnosis?: No VTE Prior VTE?: No VTE Risk Level:: Medical - moderate - high VTE Device Contraindication: N/A - Device Ordered VTE Drug Contraindication: N/A - Med Ordered
[2023-03-10] MEDS: Metoprolol Tartrate 50 MG TABLET PO (09:22)
[2023-03-10] MEDS: Multivitamin TABLET 1 TAB PO (09:22)
[2023-03-10] MEDS: hydroCHLOROthiazide 12.5 MG TABLET PO (09:22)
[2023-03-10] MEDS: Famotidine 20 MG TABLET PO (09:23)
[2023-03-10] MEDS: Atorvastatin Calcium 80 MG TABLET PO (09:23)
[2023-03-10] MEDS: predniSONE 20 MG TABLET PO (09:28)
[2023-03-10] MEDS: Enoxaparin Sodium 40 MG/0.4 ML SYRINGE SUBCUT (09:29)
--- NOTE | 2023-03-10 10:59 | MHC.CM.PN ---
EMR REVIEWED, PER HOSPITALIST PT REMAINS ON HI FLOW O2, NO PLAN FOR D/C AT THIS TIME. DISPO PENDING PT EVAL, CM WILL CONT TO FOLLOW D/C NEEDS.
[2023-03-10 11:33] LABS: Glucose, Whole Blood 207 mg/dL (60-115)
[2023-03-10 16:05] LABS: Glucose, Whole Blood 371 mg/dL (60-115)
[2023-03-10] MEDS: 0.9 % Sodium Chloride Flush 3 ML SYRINGE IVFLUSH ×2 (16:40→20:49)
[2023-03-10] MEDS: QUEtiapine Fumarate 25 MG TABLET 12.5 MG PO (18:00)
[2023-03-10] MEDS: OLANZapine 10 MG VIAL IM (19:43)
[2023-03-10] MEDS: LORazepam 2 MG/ML VIAL 1 MG IVPUSH (20:49)
[2023-03-10 23:14] LABS: Glucose, Whole Blood 227 mg/dL (60-115)
--- NOTE | 2023-03-10 23:25 | PC.NURSE ---
19:29 reached out to provider due to pt getting more confused, agitated, pulling on IV, High flow and trying to get out of bed stating she wants to go home. daughter and son at bedside. MD ordered IM zyprexa. around 20:14 SHIRT CREASER informed me family members are putting restraints on pt because she is pulling on her high flow still . this nurse immediately excuse self from current pt to address issue. upon arrival family members has already restraint pt to bed, daughter was tearful and frustrated that pt is still agitated. this nurse explained that medications takes time to take affect and we cannot put patients in restraints without a doctor's order - we have protocols to follow. daughter responded with I am the proxy, I can do what I want to keep her safe. this is hard for me , having to do this to my own mother . This nurse empathized with daughter and acknowledge that what she did was difficult but explained to her again that we have protocols to follow. notified, Nurse huang notified. order for restraints in.
[2023-03-11] VITALS (14 sets, daily range): BP systolic 124–195; BP diastolic 53–88; PULSE 71–98; RESP 16–20; TEMP 36–37.4; O2SAT 90–99; BMI 26.9
[2023-03-11] MEDS: Insulin Lispro 100 UNIT/ML 3 ML VIAL SUBCUT ×5 (00:05→22:15)
[2023-03-11] MEDS: LORazepam 2 MG/ML VIAL IVPUSH (00:30)
[2023-03-11] MEDS: Piperacillin Sodium/Tazobactam 3.375 GM in 0.9 % Sodium Chloride 50 ML IV ×2 (01:09→06:07)
[2023-03-11 07:29] LABS: Glucose, Whole Blood 184 mg/dL (60-115)
[2023-03-11 07:49] LABS: Vancomycin Trough 5.6 mcg/mL (10.0-20.0)
[2023-03-11 07:50] LABS: Creatinine Clr Calc Pharmacy 40.3; Estimated Glomerular Filt Rate > 60
--- NOTE | 2023-03-11 07:58 | HE.PHANOTE ---
RE: vanco Trough on 03/11/23 came back low at 5.6mg/L; increased dose to 750mg Q12H with predicted AUC 563, trough of 17.5mg/L. Next level to be drawn 03/12/23 @0600
[2023-03-11] MEDS: Enoxaparin Sodium 40 MG/0.4 ML SYRINGE SUBCUT (08:49)
[2023-03-11] MEDS: Fluticasone Propionate Nasal 16 GM SPRAY 2 SPRAY NOSTRIL-B (08:49)
[2023-03-11] MEDS: Multivitamin TABLET 1 TAB PO (08:50)
[2023-03-11] MEDS: Famotidine 20 MG TABLET PO ×2 (08:50→22:17)
[2023-03-11] MEDS: hydroCHLOROthiazide 12.5 MG TABLET PO (08:50)
[2023-03-11] MEDS: Insulin Glargine,Hum.rec.anlog 100 UNIT/ML 10 ML VIAL 10 UNIT SUBCUT (08:50)
[2023-03-11] MEDS: 0.9 % Sodium Chloride Flush 3 ML SYRINGE IVFLUSH ×3 (08:51→22:28)
[2023-03-11] MEDS: predniSONE 20 MG TABLET PO (08:51)
[2023-03-11] MEDS: Metoprolol Tartrate 50 MG TABLET PO (08:51)
[2023-03-11] MEDS: vancomycin HCL 750 MG in 0.9 % Sodium Chloride 250 ML 265 MG IV (08:51)
[2023-03-11] MEDS: Atorvastatin Calcium 80 MG TABLET PO (08:51)
--- NOTE | 2023-03-11 10:33 | MHC.CM.PN ---
CM SPOKE WITH DAUGHTER CECILIA, SHE DOES NOT WANT MOTHER TO GO TO [facility], WOULD LIKE HER TO RETURN HOME WITH NEW [facility] AND CONTINUED SPEECH INSTRUCTOR/FAMILY SUPPORT (LIVES WITH DAUGHTER). CM WILL CONTINUE TO FOLLOW FOR DC NEEDS.
[2023-03-11 12:10] LABS: Glucose, Whole Blood 239 mg/dL (60-115)
--- NOTE | 2023-03-11 13:21 | HO.PM.IMPN ---
Subjective Subjective Date of Service: 03/11/23 Interval History: Was very agitated overnight and this morning, removing oxygen and IV, given seroquel and reportedly restrained overnight Review of Systems Review of Systems: Yes Unobtainable due to mental status Physical Exam Vital Signs: Vital Signs: Last Vital Signs Temp 97.7 F 03/11/23 12:00 Pulse 71 03/11/23 12:00 Resp 20 03/11/23 12:00 BP 131/63 03/11/23 12:00 Pulse Ox 99 03/11/23 12:00 O2 Del Method Nasal Cannula 03/11/23 12:00 O2 Flow Rate 7 03/11/23 12:00 FiO2 35 03/11/23 08:00 Oxygen Flow Rate 6 03/02/23 16:32 BMI result Body Mass Index 26.9 Const: Other: General:confused, agitated Resp: CTA bilateral CVS: S1,S2,RRR GI: +BS, NT, no distention Skin: No rash Neuro: motor grossly intact Psych: appropriate affect Objective Data Active Medications Acetaminophen (Acetaminophen 325 Mg Tablet) 650 mg PO Q6H PRN PRN Reason: fever Last Admin: 03/08/23 01:33 Dose: 650 mg Documented By: HALEY Atorvastatin Calcium (Atorvastatin Calcium 80 Mg Tablet) 80 mg PO DAILY [facility] Last Admin: 03/11/23 08:51 Dose: 80 mg Documented By: DAVID Enoxaparin Sodium (Enoxaparin Sodium 40 Mg/0.4 Ml Syringe) 40 mg SUBCUT Q24H [facility] Last Admin: 03/11/23 08:49 Dose: 40 mg Documented By: DAVID Famotidine (Famotidine 20 Mg Tablet) 20 mg PO BID [facility] Last Admin: 03/11/23 08:50 Dose: 20 mg Documented By: DAVID Fluticasone Propionate (Fluticasone Propionate 100 Mcg Blst.W.Dev) 2 puff INHALE RBID [facility] Last Admin: 03/11/23 08:16 Dose: Not Given Documented By: RICARDO Non-Admin Reason: See Note Fluticasone Propionate (Fluticasone Propionate Nasal 16 Gm [place]) 2 spray NOSTRIL-B DAILY [facility] Last Admin: 03/11/23 08:49 Dose: 2 spray Documented By: DAVID Hydrochlorothiazide (Hydrochlorothiazide 12.5 Mg Tablet) 12.5 mg PO DAILY [facility]; Protocol Last Admin: 03/11/23 08:50 Dose: 12.5 mg Documented By: DAVID Vancomycin HCl 750 mg/ Sodium (Chloride) 265 mls @ 265 mls/hr IV Q12H [facility] Last Infusion: 03/11/23 10:25 Dose: 0 mls/hr Documented By: DAVID Insulin Glargine (Insulin Glargine,Hum.Rec.Anlog 100 Unit/Ml 10 Ml Vial) 10 unit SUBCUT DAILY [facility] Last Admin: 03/11/23 08:50 Dose: 10 unit Documented By: DAVID Insulin Human Lispro (Insulin Lispro 100 Unit/Ml 3 Ml Vial) 0 unit SUBCUT QIDACHS [facility]; Protocol Last Admin: 03/11/23 12:37 Dose: 4 unit Documented By: DAVID Levothyroxine Sodium (Levothyroxine Sodium 25 Mcg Tablet) 25 mcg PO DAILY@0600 [facility] Last Admin: 03/11/23 06:18 Dose: Not Given Documented By: SHILOH Non-Admin Reason: Patient Refused Metoprolol Tartrate (Metoprolol Tartrate 50 Mg Tablet) 50 mg PO DAILY [facility]; Protocol Last Admin: 03/11/23 08:51 Dose: 50 mg Documented By: DAVID Multivitamins/Vitamin C (Multivitamin Tablet) 1 tab PO DAILY [facility] Last Admin: 03/11/23 08:50 Dose: 1 tab Documented By: DAVID Pharmacy Consult (Consult Rx Perform Med Rec) 1 each MISCELLANE ONCE PRN PRN Reason: Consult order Pharmacy Consult (Consult Rx Vancomycin Dosing) 1 each MISCELLANE DAILY PRN PRN Reason: Consult order Prednisone (Prednisone 20 Mg Tablet) 20 mg PO DAILY [facility] Last Admin: 03/11/23 08:51 Dose: 20 mg Documented By: DAVID Quetiapine Fumarate (Quetiapine Fumarate 25 Mg Tablet) 12.5 mg PO Q6H PRN PRN Reason: anxiety Last Admin: 03/10/23 18:00 Dose: 12.5 mg Documented By: JASON Sodium Chloride (0.9 % Sodium Chloride Flush 3 Ml Syringe) 3 ml IVFLUSH QSHIFT [facility] Last Admin: 03/11/23 08:51 Dose: 3 ml Documented By: DAVID Tizanidine HCl (Tizanidine Hcl 4 Mg Tablet) 4 mg PO BEDTIME PRN PRN Reason: muscle spasm/cramps Last Admin: 03/08/23 19:49 Dose: 4 mg Documented By: TREMAYNE-ANUPAMA Labs 03/10/23 06:54 03/11/23 07:27 Labs: Laboratory Results - last 24 hr 03/10/23 03/10/23 03/11/23 15:48 23:10 07:25 Estim Creat Clear Calc Estimated GFR POC Glucose 371 H* 227 H 184 H Vancomycin Trough 03/11/23 03/11/23 03/11/23 07:27 07:27 12:01 Estim Creat Clear Calc 40.3 Estimated GFR > 60 POC Glucose 239 H Vancomycin Trough 5.6 L Assessment and Plan (1) Acute and chronic respiratory failure with hypoxia: Status: Acute Plan 82-year-old female with pertinent history of insulin-dependent diabetes mellitus, hypothyroidism, essential hypertension, hyperlipidemia, chronic hypoxemic respiratory failure due to Asthma, SAVANNAH on CPAP with questionable compliance who presented to the ER with progressive dyspnea. Patient was intubated and admitted to the ICU on 03/03. Patient was successfully extubated to high-flow nasal cannula [place] [facility] [place] #. acute on chronic hypoxemic hypercarbic respiratory failure due to acute severe persistent asthma exacerbation: Patient was intubated on 03/03 and transferred to C after successful extubation on 03/06. Continue p.o. steroids z(lower to 20 today) and scheduled and p.r.n. DuoNebs. Patient is on supplemental oxygen at home as needed. monitor oxygen saturation and wean as tolerated. Continue home inhaler. Wean off High flow as joce, BiPAP at bed time and PRN during the day. Stop empiric Abx (Zosy and Vanco) #. Insulin-dependent diabetes mellitus: Patient on basal plus SSI, hyperglycemia due steroid, lower dose #. hypothyroidism: On Synthroid #. mixed hyperlipidemia: On statin #. gastroesophageal reflux disease: On famotidine #. essential hypertension: Continue home antihypertensives #. SAVANNAH: Continue CPAP at bedtime # Agiation, likely sun downing if need low dose serequel or Zyprexa to control symptoms. Getting Psych consult to help withmanagement of behavior #. dementia--restart aricept DVT prophylaxis: Lovenox Diabetic diet Full code Need for inpatient: acute hypoxic respiratory falure needing intubation now on high flow and need O2 adjustment discussed with daughter at bedside Time Spent With Patient Time: Total time managing care of this patient today ____ minutes. Quality Stroke Does the patient have a stroke diagnosis?: No VTE Prior VTE?: No VTE Risk Level:: Medical - moderate - high VTE Device Contraindication: N/A - Device Ordered VTE Drug Contraindication: N/A - Med Ordered
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
[2023-03-11 17:00] LABS: Glucose, Whole Blood 269 mg/dL (60-115)
[2023-03-11 20:12] LABS: Glucose, Whole Blood 285 mg/dL (60-115)
[2023-03-11] MEDS: OLANZapine 2.5 MG TABLET PO (22:18)
[2023-03-12] VITALS (7 sets, daily range): BP systolic 128–155; BP diastolic 60–70; PULSE 68–89; RESP 16–20; TEMP 36.2–37.7; O2SAT 92–98
[2023-03-12 07:11] LABS: Vancomycin Trough 5.1 mcg/mL (10.0-20.0)
[2023-03-12 07:38] LABS: Glucose, Whole Blood 168 mg/dL (60-115)
[2023-03-12] MEDS: hydroCHLOROthiazide 12.5 MG TABLET PO (07:52)
[2023-03-12] MEDS: Metoprolol Tartrate 50 MG TABLET PO (07:52)
[2023-03-12] MEDS: Atorvastatin Calcium 80 MG TABLET PO (07:52)
[2023-03-12] MEDS: Multivitamin TABLET 1 TAB PO (07:52)
[2023-03-12] MEDS: predniSONE 20 MG TABLET PO (07:52)
[2023-03-12] MEDS: Insulin Glargine,Hum.rec.anlog 100 UNIT/ML 10 ML VIAL 10 UNIT SUBCUT (07:53)
[2023-03-12] MEDS: Insulin Lispro 100 UNIT/ML 3 ML VIAL SUBCUT ×4 (07:53→21:42)
[2023-03-12] MEDS: Famotidine 20 MG TABLET PO ×2 (07:53→19:44)
[2023-03-12] MEDS: OLANZapine 2.5 MG TABLET PO ×2 (07:53→19:44)
[2023-03-12] MEDS: Fluticasone Propionate Nasal 16 GM SPRAY 2 SPRAY NOSTRIL-B (07:54)
[2023-03-12] MEDS: 0.9 % Sodium Chloride Flush 3 ML SYRINGE IVFLUSH ×3 (07:54→19:51)
[2023-03-12] MEDS: Fluticasone Propionate 100 MCG BLST.W.DEV 2 PUFF INHALE (08:14)
--- NOTE | 2023-03-12 09:29 | P.CDIM_ITS ---
PROVIDER RESPONSE TEXT: To clarify, the appropriate diagnosis supported by the clinical indicators: Acute delirium: acute situational delirium QUERY TEXT: PHYSICIAN'S DOCUMENTATION REQUEST Date of Query: 03/12/2023 09:06 AM EDT Patient Name: Aisha Crooks Admit Date: 03/03/2023 Dear Itz Vogel, A review of the medical record indicates additional documentation may be needed. Please review below and update the documentation accordingly. Clinical Indicators: Per Hospitalist Progress Note 03/11/23: Was very agitated overnight and this morning, removing oxygen and IV, given Seroquel and reportedly restrained overnight giation, likely sun downing if need low dose serequel or Zyprexa to control symptoms. Getting Psych c onsult to help with management of behavior Dementia--restart Aricept Based on the above, could you clarify if any of the following, is the most likely etiology of the con fusion/altered mental status? Encephalopathy Indicate type such as metabolic, toxic, septic, alcoholic, hypertensive, etc. Dementia Indicate type of dementia, such as Alzheimer's, senile, vascular, Lewy body, etc. Acute delirium Indicate known or suspected etiology, such as postoperative, due to narcotics or other drugs, etc. Baseline dementia Indicate type, such as Alzheimer's, senile, vascular, Lewy body, etc., and any associated behavioral disturbances (aggressive, combative, or violent behavior) Acute or subacute confusional state due to Specify known or suspected etiology Other (explain) Clinically unable to determine (explain) Thank you, Gloria Patel RN Use of terms such as suspected, likely, concern for, or probable (associated with a specific diagnosi s that is being evaluated, monitored, or treated as if it exists) are acceptable and can be coded in the inpatient se tting, when documented at the time of discharge. Please use your independent medical judgment in providing your response. THIS QUERY IS PART OF THE PERMANENT MEDICAL RECORD
--- NOTE | 2023-03-12 10:52 | HO.PM.IMPN ---
Subjective Subjective Date of Service: 03/12/23 Interval History: She is doing much better today, off high flow and saturation, no agiation, alert and eating, daughter is happy about change between yesterday and today Physical Exam Vital Signs: Vital Signs: Last Vital Signs Temp 97.1 F 03/12/23 07:45 Pulse 89 03/12/23 08:15 Resp 18 03/12/23 08:15 BP 128/60 03/12/23 07:45 Pulse Ox 98 03/12/23 07:45 O2 Del Method BiPAP 03/12/23 03:50 O2 Flow Rate 4 03/11/23 20:00 FiO2 35 03/11/23 08:00 Oxygen Flow Rate 6 03/02/23 16:32 BMI result Body Mass Index 26.9 Const: Other: General:confused, agitated Resp: CTA bilateral CVS: S1,S2,RRR GI: +BS, NT, no distention Skin: No rash Neuro: motor grossly intact Psych: appropriate affect Objective Data Active Medications Acetaminophen (Acetaminophen 325 Mg Tablet) 650 mg PO Q6H PRN PRN Reason: fever Last Admin: 03/08/23 01:33 Dose: 650 mg Documented By: HALEY Atorvastatin Calcium (Atorvastatin Calcium 80 Mg Tablet) 80 mg PO DAILY [facility] Last Admin: 03/12/23 07:52 Dose: 80 mg Documented By: EDIE Donepezil HCl (Donepezil Hcl 10 Mg Tablet) 10 mg PO BEDTIME [facility] Enoxaparin Sodium (Enoxaparin Sodium 40 Mg/0.4 Ml Syringe) 40 mg SUBCUT Q24H [facility] Last Admin: 03/11/23 08:49 Dose: 40 mg Documented By: DAVID Famotidine (Famotidine 20 Mg Tablet) 20 mg PO BID [facility] Last Admin: 03/12/23 07:53 Dose: 20 mg Documented By: EDIE Fluticasone Propionate (Fluticasone Propionate 100 Mcg Blst.W.Dev) 2 puff INHALE RBID [facility] Last Admin: 03/12/23 08:14 Dose: 2 puff Documented By: TRAVIS Fluticasone Propionate (Fluticasone Propionate Nasal 16 Gm [place]) 2 spray NOSTRIL-B DAILY [facility] Last Admin: 03/12/23 07:54 Dose: 2 spray Documented By: EDIE Hydrochlorothiazide (Hydrochlorothiazide 12.5 Mg Tablet) 12.5 mg PO DAILY [facility]; Protocol Last Admin: 03/12/23 07:52 Dose: 12.5 mg Documented By: EDIE Insulin Glargine (Insulin Glargine,Hum.Rec.Anlog 100 Unit/Ml 10 Ml Vial) 10 unit SUBCUT DAILY [facility] Last Admin: 03/12/23 07:53 Dose: 10 unit Documented By: EDIE Insulin Human Lispro (Insulin Lispro 100 Unit/Ml 3 Ml Vial) 0 unit SUBCUT QIDACHS [facility]; Protocol Last Admin: 03/12/23 07:53 Dose: 2 unit Documented By: EDIE Levothyroxine Sodium (Levothyroxine Sodium 25 Mcg Tablet) 25 mcg PO DAILY@0600 [facility] Last Admin: 03/12/23 06:16 Dose: Not Given Documented By: ALEAH Non-Admin Reason: Patient Condition Contraindication Metoprolol Tartrate (Metoprolol Tartrate 50 Mg Tablet) 50 mg PO DAILY [facility]; Protocol Last Admin: 03/12/23 07:52 Dose: 50 mg Documented By: EDIE Multivitamins/Vitamin C (Multivitamin Tablet) 1 tab PO DAILY [facility] Last Admin: 03/12/23 07:52 Dose: 1 tab Documented By: EDIE Olanzapine (Olanzapine 2.5 Mg Tablet) 2.5 mg PO BID [facility] Last Admin: 03/12/23 07:53 Dose: 2.5 mg Documented By: EDIE Olanzapine (Olanzapine 5 Mg Tablet) 5 mg PO BID PRN PRN Reason: agitation Pharmacy Consult (Consult Rx Perform Med Rec) 1 each MISCELLANE ONCE PRN PRN Reason: Consult order Prednisone (Prednisone 20 Mg Tablet) 20 mg PO DAILY [facility] Last Admin: 03/12/23 07:52 Dose: 20 mg Documented By: EDIE Sodium Chloride (0.9 % Sodium Chloride Flush 3 Ml Syringe) 3 ml IVFLUSH QSHIFT [facility] Last Admin: 03/12/23 07:54 Dose: 3 ml Documented By: EDIE Labs 03/10/23 06:54 03/11/23 07:27 Labs: Laboratory Results - last 24 hr 03/11/23 03/11/23 03/11/23 12:01 16:53 20:03 POC Glucose 239 H 269 H 285 H Vancomycin Trough 03/12/23 03/12/23 06:17 07:18 POC Glucose 168 H Vancomycin Trough 5.1 L Assessment and Plan (1) Acute and chronic respiratory failure with hypoxia: Status: Acute (2) Status asthmaticus: Status: Acute (3) Agitation: Status: Acute Plan 82-year-old female with pertinent history of insulin-dependent diabetes mellitus, hypothyroidism, essential hypertension, hyperlipidemia, chronic hypoxemic respiratory failure due to Asthma, SAVANNAH on CPAP with questionable compliance who presented to the ER with progressive dyspnea.? Patient was intubated and admitted to the ICU on 03/03.? Patient was successfully extubated to high-flow nasal cannula and transferred to C on 03/06 ?#. acute on chronic hypoxemic hypercarbic respiratory failure due to acute severe persistent asthma exacerbation:? Patient was intubated on 03/03 and transferred to IMC? after successful extubation on 03/06.? Continue p.o. steroids z(lower to10 today) and scheduled and p.r.n. DuoNebs.? Patient is on supplemental oxygen at home as needed. Abx stopped on 03/11. ?#.? Insulin-dependent diabetes mellitus:? Patient on basal plus SSI, hyperglycemia due steroid, lower dose ?#. hypothyroidism: On Synthroid ?#. mixed hyperlipidemia:? On statin ?#. gastroesophageal reflux disease:? On famotidine ?#. essential hypertension: Continue home antihypertensives ?#. SAVANNAH: Continue CPAP at bedtime # Agiation, likely sun downing and acute situational delirium seen by Psych 03/11 with the following recommendation Discontinue Quetiapine. Olanzapine 2.5 mg po bid in trial Olanzapine 5 mg po bid prn severe agitation Continue Lorazepam prn. #. dementia--restart aricept DVT prophylaxis:? Lovenox Diabetic diet Full code ? Need for inpatient: acute hypoxic respiratory falure needing intubation now on high flow and need O2 adjustment discussed with? daughter at bedside Time Spent With Patient Time: Total time managing care of this patient today ____ minutes. Quality Stroke Does the patient have a stroke diagnosis?: No VTE Prior VTE?: No VTE Risk Level:: Medical - moderate - high VTE Device Contraindication: N/A - Device Ordered VTE Drug Contraindication: N/A - Med Ordered
[2023-03-12 11:29] LABS: Glucose, Whole Blood 294 mg/dL (60-115)
--- NOTE | 2023-03-12 12:21 | MHC.CM.PN ---
EMR REVIEWED, PER HOSPITALIST PT IMPROVING AND NOW OFF HI FLOW O2, ANTIC POSSIBLE W/E D/C W/NEW HVNA, VNA UPDATED VIA Microtask, CM WILL CONT TO FOLLOW D/C NEEDS.
[2023-03-12] MEDS: Enoxaparin Sodium 40 MG/0.4 ML SYRINGE SUBCUT (12:36)
[2023-03-12 15:29] LABS: Glucose, Whole Blood 418 mg/dL (60-115)
[2023-03-12] MEDS: Insulin Lispro 100 UNIT/ML 3 ML VIAL 7 UNIT SUBCUT (15:51)
[2023-03-12] MEDS: guaiFENesin 100 MG/5 ML LIQUID PO (18:15)
[2023-03-12] MEDS: Donepezil HCl 10 MG TABLET PO (19:44)
[2023-03-12 20:51] LABS: Glucose, Whole Blood 193 mg/dL (60-115)
[2023-03-12] MEDS: OLANZapine 5 MG TABLET PO (21:39)
[2023-03-12] MEDS: LORazepam 2 MG/ML VIAL 1 MG IVPUSH (22:12)
[2023-03-13] VITALS (8 sets, daily range): BP systolic 125–168; BP diastolic 60–76; PULSE 78–93; RESP 17–20; TEMP 36–36.9; O2SAT 92–97; BMI 24.4
[2023-03-13] MEDS: LORazepam 2 MG/ML VIAL 1 MG IVPUSH ×2 (00:12→09:22)
[2023-03-13] MEDS: Levothyroxine Sodium 25 MCG TABLET PO (05:02)
[2023-03-13] MEDS: Haloperidol Lactate 5 MG/ML VIAL IM (05:02)
[2023-03-13 08:18] LABS: Glucose, Whole Blood 173 mg/dL (60-115)
--- NOTE | 2023-03-13 09:09 | HO.PM.IMPN ---
Subjective Subjective Date of Service: 03/13/23 Interval History: She became extremely agitated again overnight and required multiple meds (Ativan, Zyprexa, Haldol to contl) and in the end had to be physically controlled and remains extremely agitated this morning and delirius Physical Exam Vital Signs: Vital Signs: Last Vital Signs Temp 98.5 F 03/13/23 07:18 Pulse 91 03/13/23 07:18 Resp 20 03/13/23 07:18 BP 126/70 03/13/23 07:18 Pulse Ox 92 03/13/23 07:18 O2 Del Method Nasal Cannula 03/13/23 07:18 O2 Flow Rate 4 03/13/23 07:18 FiO2 35 03/11/23 08:00 Oxygen Flow Rate 6 03/02/23 16:32 BMI result Body Mass Index 24.4 Const: Other: General:confused, extremely agitated Resp: CTA bilateral CVS: S1,S2,RRR GI: +BS, NT, no distention Skin: No rash Neuro: motor grossly intact Psych: appropriate affect Objective Data Active Medications Acetaminophen (Acetaminophen 325 Mg Tablet) 650 mg PO Q6H PRN PRN Reason: fever Last Admin: 03/08/23 01:33 Dose: 650 mg Documented By: HALEY Atorvastatin Calcium (Atorvastatin Calcium 80 Mg Tablet) 80 mg PO DAILY [facility] Last Admin: 03/12/23 07:52 Dose: 80 mg Documented By: EDIE Donepezil HCl (Donepezil Hcl 10 Mg Tablet) 10 mg PO BEDTIME [facility] Last Admin: 03/12/23 19:44 Dose: 10 mg Documented By: ADRIAN Enoxaparin Sodium (Enoxaparin Sodium 40 Mg/0.4 Ml Syringe) 40 mg SUBCUT Q24H [facility] Last Admin: 03/12/23 12:36 Dose: 40 mg Documented By: EDIE Famotidine (Famotidine 20 Mg Tablet) 20 mg PO BID [facility] Last Admin: 03/12/23 19:44 Dose: 20 mg Documented By: ADRIAN Fluticasone Propionate (Fluticasone Propionate 100 Mcg Blst.W.Dev) 2 puff INHALE RBID [facility] Last Admin: 03/13/23 07:42 Dose: Not Given Documented By: RICARDO Non-Admin Reason: See Note Fluticasone Propionate (Fluticasone Propionate Nasal 16 Gm [place]) 2 spray NOSTRIL-B DAILY [facility] Last Admin: 03/12/23 07:54 Dose: 2 spray Documented By: EDIE Guaifenesin (Guaifenesin 100 Mg/5 Ml Liquid) 5 ml PO Q4H PRN PRN Reason: Cough Last Admin: 03/12/23 18:15 Dose: 5 ml Documented By: GILES Hydrochlorothiazide (Hydrochlorothiazide 12.5 Mg Tablet) 12.5 mg PO DAILY [facility]; Protocol Last Admin: 03/12/23 07:52 Dose: 12.5 mg Documented By: EDIE Insulin Glargine (Insulin Glargine,Hum.Rec.Anlog 100 Unit/Ml 10 Ml Vial) 10 unit SUBCUT DAILY [facility] Last Admin: 03/12/23 07:53 Dose: 10 unit Documented By: EDIE Insulin Human Lispro (Insulin Lispro 100 Unit/Ml 3 Ml Vial) 0 unit SUBCUT QIDACHS [facility]; Protocol Last Admin: 03/12/23 21:42 Dose: 2 unit Documented By: ADRIAN Levothyroxine Sodium (Levothyroxine Sodium 25 Mcg Tablet) 25 mcg PO DAILY@0600 [facility] Last Admin: 03/13/23 05:02 Dose: 25 mcg Documented By: ADRIAN Metoprolol Tartrate (Metoprolol Tartrate 50 Mg Tablet) 50 mg PO DAILY [facility]; Protocol Last Admin: 03/12/23 07:52 Dose: 50 mg Documented By: EDIE Multivitamins/Vitamin C (Multivitamin Tablet) 1 tab PO DAILY [facility] Last Admin: 03/12/23 07:52 Dose: 1 tab Documented By: EDIE Olanzapine (Olanzapine 2.5 Mg Tablet) 2.5 mg PO BID [facility] Last Admin: 03/12/23 19:44 Dose: 2.5 mg Documented By: ADRIAN Olanzapine (Olanzapine 5 Mg Tablet) 5 mg PO BID PRN PRN Reason: agitation Last Admin: 03/12/23 21:39 Dose: 5 mg Documented By: ADRIAN Pharmacy Consult (Consult Rx Perform Med Rec) 1 each MISCELLANE ONCE PRN PRN Reason: Consult order Prednisone (Prednisone 10 Mg Tablet) 10 mg PO DAILY [facility] Sodium Chloride (0.9 % Sodium Chloride Flush 3 Ml Syringe) 3 ml IVFLUSH QSHIFT [facility] Last Admin: 03/12/23 19:51 Dose: 3 ml Documented By: ADRIAN Labs 03/10/23 06:54 03/11/23 07:27 Labs: Laboratory Results - last 24 hr 03/12/23 03/12/23 03/12/23 11:11 15:04 20:32 POC Glucose 294 H 418 H* 193 H 03/13/23 07:56 POC Glucose 173 H Microbiology Microbiology Results: Microbiology 03/08/23 01:47 Blood Culture - Final Blood - Venous No growth after 5 days. 03/08/23 01:47 Blood Culture - Final Blood - Venous No growth after 5 days. Assessment and Plan (1) Acute and chronic respiratory failure with hypoxia: Status: Acute (2) Status asthmaticus: Status: Acute (3) Agitation: Status: Acute Plan 82-year-old female with pertinent history of insulin-dependent diabetes mellitus, hypothyroidism, essential hypertension, hyperlipidemia, chronic hypoxemic respiratory failure due to Asthma, SAVANNAH on CPAP with questionable compliance who presented to the ER with progressive dyspnea.? Patient was intubated and admitted to the ICU on 03/03.? Patient was successfully extubated to high-flow nasal cannula and transferred to C on 03/06 ?#. acute on chronic hypoxemic hypercarbic respiratory failure due to acute severe persistent asthma exacerbation:? Patient was intubated on 03/03 and transferred to [facility]? after successful extubation on 03/06.? Continue p.o. steroids z(lower to10 today) and scheduled and p.r.n. DuoNebs.? Patient is on supplemental oxygen at home as needed. Abx stopped on 03/11. ?#.? Insulin-dependent diabetes mellitus:? Patient on basal plus SSI, hyperglycemia due steroid, lower dose ?#. hypothyroidism: On Synthroid ?#. mixed hyperlipidemia:? On statin ?#. gastroesophageal reflux disease:? On famotidine ?#. essential hypertension: Continue home antihypertensives ?#. SAVANNAH: Continue CPAP at bedtime # Agiation, likely sun downing and acute situational delirium seen by Psych 03/11 with the following recommendation Discontinue Quetiapine. Olanzapine 2.5 mg po bid in trial Olanzapine 5 mg po bid prn severe agitation Continue Lorazepam prn. May ask Psych for further adjustment if no good effect with current re #. dementia--Arricept DVT prophylaxis:? Lovenox Diabetic diet Full code ? Need for inpatient: Delirium not yet controlled for safe discharge home discussed with? daughter at bedside Time Spent With Patient Time: Total time managing care of this patient today ____ minutes. Quality Stroke Does the patient have a stroke diagnosis?: No VTE Prior VTE?: No VTE Risk Level:: Medical - moderate - high VTE Device Contraindication: N/A - Device Ordered VTE Drug Contraindication: N/A - Med Ordered
[2023-03-13] MEDS: Insulin Lispro 100 UNIT/ML 3 ML VIAL SUBCUT ×3 (09:19→16:21)
[2023-03-13] MEDS: 0.9 % Sodium Chloride Flush 3 ML SYRINGE IVFLUSH ×3 (09:20→19:23)
[2023-03-13] MEDS: Insulin Glargine,Hum.rec.anlog 100 UNIT/ML 10 ML VIAL 10 UNIT SUBCUT (09:20)
[2023-03-13 11:42] LABS: Glucose, Whole Blood 183 mg/dL (60-115)
[2023-03-13] MEDS: Enoxaparin Sodium 40 MG/0.4 ML SYRINGE SUBCUT (13:05)
[2023-03-13 16:02] LABS: Glucose, Whole Blood 201 mg/dL (60-115)
[2023-03-13] MEDS: Fluticasone Propionate 100 MCG BLST.W.DEV 2 PUFF INHALE (19:06)
[2023-03-13] MEDS: Donepezil HCl 10 MG TABLET PO (19:23)
[2023-03-13] MEDS: OLANZapine 2.5 MG TABLET PO (19:23)
[2023-03-13] MEDS: Famotidine 20 MG TABLET PO (19:23)
[2023-03-13 19:40] LABS: Glucose, Whole Blood 140 mg/dL (60-115)
[2023-03-14] VITALS (7 sets, daily range): BP systolic 107–147; BP diastolic 56–72; PULSE 74–104; RESP 17–20; TEMP 36.1–36.8; O2SAT 92–98
[2023-03-14] MEDS: Famotidine 20 MG TABLET PO ×2 (07:46→20:42)
[2023-03-14] MEDS: hydroCHLOROthiazide 12.5 MG TABLET PO (07:46)
[2023-03-14] MEDS: predniSONE 10 MG TABLET PO (07:47)
[2023-03-14] MEDS: Multivitamin TABLET 1 TAB PO (07:47)
[2023-03-14] MEDS: OLANZapine 2.5 MG TABLET PO ×2 (07:47→20:42)
[2023-03-14] MEDS: Atorvastatin Calcium 80 MG TABLET PO (07:47)
[2023-03-14] MEDS: Metoprolol Tartrate 50 MG TABLET PO (07:47)
[2023-03-14] MEDS: Insulin Glargine,Hum.rec.anlog 100 UNIT/ML 10 ML VIAL 10 UNIT SUBCUT (07:47)
[2023-03-14] MEDS: 0.9 % Sodium Chloride Flush 3 ML SYRINGE IVFLUSH ×3 (07:48→20:42)
[2023-03-14 07:58] LABS: Glucose, Whole Blood 166 mg/dL (60-115)
[2023-03-14] MEDS: Insulin Lispro 100 UNIT/ML 3 ML VIAL SUBCUT ×4 (08:05→20:42)
[2023-03-14] MEDS: Fluticasone Propionate Nasal 16 GM SPRAY 2 SPRAY NOSTRIL-B (08:08)
--- NOTE | 2023-03-14 09:21 | HO.PM.IMPN ---
Subjective Subjective Date of Service: 03/14/23 Interval History: She's much calme this moring, no resp disress, yet confused Physical Exam Vital Signs: Vital Signs: Last Vital Signs Temp 97.3 F 03/14/23 07:26 Pulse 90 03/14/23 07:26 Resp 20 03/14/23 07:26 BP 145/72 H 03/14/23 07:26 Pulse Ox 95 03/14/23 07:26 O2 Del Method Nasal Cannula 03/14/23 07:26 O2 Flow Rate 4 03/14/23 07:26 FiO2 35 03/11/23 08:00 Oxygen Flow Rate 6 03/02/23 16:32 BMI result Body Mass Index 24.4 Const: Other: General: confused Resp: CTA bilateral CVS: S1,S2,RRR GI: +BS, NT, no distention Skin: No rash Neuro: motor grossly intact Psych: appropriate affect Objective Data Active Medications Acetaminophen (Acetaminophen 325 Mg Tablet) 650 mg PO Q6H PRN PRN Reason: fever Last Admin: 03/08/23 01:33 Dose: 650 mg Documented By: HALEY Atorvastatin Calcium (Atorvastatin Calcium 80 Mg Tablet) 80 mg PO DAILY [facility] Last Admin: 03/14/23 07:47 Dose: 80 mg Documented By: CLAUDY Donepezil HCl (Donepezil Hcl 10 Mg Tablet) 10 mg PO BEDTIME [facility] Last Admin: 03/13/23 19:23 Dose: 10 mg Documented By: MATT Enoxaparin Sodium (Enoxaparin Sodium 40 Mg/0.4 Ml Syringe) 40 mg SUBCUT Q24H [facility] Last Admin: 03/13/23 13:05 Dose: 40 mg Documented By: ADAIR Famotidine (Famotidine 20 Mg Tablet) 20 mg PO BID [facility] Last Admin: 03/14/23 07:46 Dose: 20 mg Documented By: CLAUDY Fluticasone Propionate (Fluticasone Propionate 100 Mcg Blst.W.Dev) 2 puff INHALE RBID [facility] Last Admin: 03/14/23 08:03 Dose: Not Given Documented By: RICARDO Non-Admin Reason: Patient Asleep Fluticasone Propionate (Fluticasone Propionate Nasal 16 Gm [place]) 2 spray NOSTRIL-B DAILY [facility] Last Admin: 03/14/23 08:08 Dose: 2 spray Documented By: CLAUDY Guaifenesin (Guaifenesin 100 Mg/5 Ml Liquid) 5 ml PO Q4H PRN PRN Reason: Cough Last Admin: 03/12/23 18:15 Dose: 5 ml Documented By: GILES Hydrochlorothiazide (Hydrochlorothiazide 12.5 Mg Tablet) 12.5 mg PO DAILY [facility]; Protocol Last Admin: 03/14/23 07:46 Dose: 12.5 mg Documented By: CLAUDY Insulin Glargine (Insulin Glargine,Hum.Rec.Anlog 100 Unit/Ml 10 Ml Vial) 10 unit SUBCUT DAILY [facility] Last Admin: 03/14/23 07:47 Dose: 10 unit Documented By: CLAUDY Insulin Human Lispro (Insulin Lispro 100 Unit/Ml 3 Ml Vial) 0 unit SUBCUT QIDACHS [facility]; Protocol Last Admin: 03/14/23 08:05 Dose: 2 unit Documented By: CLAUDY Levothyroxine Sodium (Levothyroxine Sodium 25 Mcg Tablet) 25 mcg PO DAILY@0600 [facility] Last Admin: 03/14/23 05:08 Dose: Not Given Documented By: BENJAMIN Non-Admin Reason: Patient Refused Lorazepam (Lorazepam 2 Mg/Ml Vial) 1 mg IVPUSH Q4H PRN PRN Reason: Anxiety Last Admin: 03/13/23 09:22 Dose: 1 mg Documented By: ADAIR Metoprolol Tartrate (Metoprolol Tartrate 50 Mg Tablet) 50 mg PO DAILY [facility]; Protocol Last Admin: 03/14/23 07:47 Dose: 50 mg Documented By: CLAUDY Multivitamins/Vitamin C (Multivitamin Tablet) 1 tab PO DAILY [facility] Last Admin: 03/14/23 07:47 Dose: 1 tab Documented By: CLAUDY Olanzapine (Olanzapine 2.5 Mg Tablet) 2.5 mg PO BID [facility] Last Admin: 03/14/23 07:47 Dose: 2.5 mg Documented By: CLAUDY Olanzapine (Olanzapine 5 Mg Tablet) 5 mg PO BID PRN PRN Reason: agitation Last Admin: 03/12/23 21:39 Dose: 5 mg Documented By: ADRIAN Pharmacy Consult (Consult Rx Perform Med Rec) 1 each MISCELLANE ONCE PRN PRN Reason: Consult order Prednisone (Prednisone 10 Mg Tablet) 10 mg PO DAILY [facility] Last Admin: 03/14/23 07:47 Dose: 10 mg Documented By: CLAUDY Sodium Chloride (0.9 % Sodium Chloride Flush 3 Ml Syringe) 3 ml IVFLUSH QSHIFT [facility] Last Admin: 03/14/23 07:48 Dose: 3 ml Documented By: CLAUDY Labs 03/10/23 06:54 03/11/23 07:27 Labs: Laboratory Results - last 24 hr 03/13/23 03/13/23 03/13/23 11:12 15:54 19:14 POC Glucose 183 H 201 H 140 H 03/14/23 07:29 POC Glucose 166 H Assessment and Plan (1) Acute and chronic respiratory failure with hypoxia: Status: Acute (2) Status asthmaticus: Status: Acute (3) Agitation: Status: Acute Plan 82-year-old female with pertinent history of insulin-dependent diabetes mellitus, hypothyroidism, essential hypertension, hyperlipidemia, chronic hypoxemic respiratory failure due to Asthma, SAVANNAH on CPAP with questionable compliance who presented to the ER with progressive dyspnea.? Patient was intubated and admitted to the ICU on 03/03.? Patient was successfully extubated to high-flow nasal cannula and transferred to [facility] on 03/06 ?#. acute on chronic hypoxemic hypercarbic respiratory failure due to acute severe persistent asthma exacerbation. She was intubated on 03/03 and transferred to [facility]MC? after successful extubation on 03/06.? - Continue p.o. Prednisone at 10 for 2 more days. - scheduled and p.r.nJosé Miguel Jovel.? - On home O2, goal of sat arpimd [id number] -Abx stopped on 03/11. ?#.? Insulin-dependent diabetes mellitus:? Patient on basal plus SSI, hyperglycemia due steroid, lower dose ?#. hypothyroidism: On Synthroid ?#. mixed hyperlipidemia:? On statin ?#. GERD:? On famotidine ?#. HTN: Continue home antihypertensives ?#. SAVANNAH: Continue CPAP at bedtime # Agiation, likely sun downing and acute situational delirium--seems much calmer this morning seen by Psych 03/11 with the following recommendation Discontinue Quetiapine. Olanzapine 2.5 mg po bid in trial Olanzapine 5 mg po bid prn severe agitation Continue Lorazepam prn. May ask Psych for further adjustment if no good effect with current re #. dementia--Arricept DVT prophylaxis:? Lovenox Diabetic diet Full code ? Need for inpatient: Delirium not yet controlled for safe discharge home, anticipate dc in 1 to 2 days daughter is updated on regular basis Time Spent With Patient Time: Total time managing care of this patient today ____ minutes. Quality Stroke Does the patient have a stroke diagnosis?: No VTE Prior VTE?: No VTE Risk Level:: Medical - moderate - high VTE Device Contraindication: N/A - Device Ordered VTE Drug Contraindication: N/A - Med Ordered
[2023-03-14 11:51] LABS: Glucose, Whole Blood 191 mg/dL (60-115)
[2023-03-14] MEDS: Enoxaparin Sodium 40 MG/0.4 ML SYRINGE SUBCUT (12:18)
[2023-03-14 16:03] LABS: Glucose, Whole Blood 257 mg/dL (60-115)
[2023-03-14] MEDS: Fluticasone Propionate 100 MCG BLST.W.DEV 2 PUFF INHALE (19:34)
[2023-03-14 19:43] LABS: Glucose, Whole Blood 196 mg/dL (60-115)
[2023-03-14] MEDS: Donepezil HCl 10 MG TABLET PO (20:42)
[2023-03-14] MEDS: LORazepam 2 MG/ML VIAL 0.5 MG IVPUSH (22:08)
[2023-03-14] MEDS: OLANZapine 10 MG VIAL 5 MG IM (22:40)
[2023-03-15] VITALS (8 sets, daily range): BP systolic 130–161; BP diastolic 58–70; PULSE 71–95; RESP 14–20; TEMP 36–37.1; O2SAT 90–99
--- NOTE | 2023-03-15 00:43 | PC.NURSE ---
Addendum entered by Elaina Fontanez RN 03/15/23 00:49: Report given to BEN Cannon at 0048. Original Note: Pt seen on bed at start of shift alert and oriented to person, pt's daughter is at bedside and effectively redirecting, denies any pain, meds tolerated, pt's daughter stepped out for a few hours, pt became restless and yelling at 2150, pt was tried to redirect but unsuccessful, prn Ativan was given at 2200 with no effect, Dr. Burroughs was made aware and came to the bedside, Olanzapine 5 mg IM stat given at 2240, pt's daughter cameback and redirected the pt, pt started to calm down, respiratory came to put BiPAP but refused, maintained on O2 at 4L /min via NC.
--- NOTE | 2023-03-15 03:16 | PC.NURSE ---
Pt sleeping with every appearance of comfort with family at bedside.
--- NOTE | 2023-03-15 03:22 | PC.NURSE ---
Assumed care of this patient approx 2345. She is sleeping with every appearance of comfort with daughter at bedside. Pt allowed to sleep to maintain sleep/wake cycle. No BM documented and per report since last wednesday now on day 7. MD Burroughs made aware and bowel reg. ordered to start in AM.
--- NOTE | 2023-03-15 07:28 | PC.NURSE ---
pt refused PO meds this am, and oncoming rn aware, will attemptagain when pt more awake and less agitated.
[2023-03-15 07:47] LABS: Glucose, Whole Blood 175 mg/dL (60-115)
[2023-03-15] MEDS: Fluticasone Propionate 100 MCG BLST.W.DEV 2 PUFF INHALE ×2 (08:11→20:32)
[2023-03-15 08:16] LABS: Hematocrit 39.4 % (37.0-47.0); Hemoglobin 11.9 g/dl (12.0-16.0); Mean Corpuscular HGB Conc 30.2 g/dl (31.0-35.0); Mean Corpuscular Hemoglobin 26.3 pg (27.0-33.0); Mean Corpuscular Volume 87.2 fL (80.0-98.0); Mean Platelet Volume 10.6 fL (9.4-12.3); Platelet Count 256 X10*3/uL (160-400); Red Blood Count 4.52 X10*6/uL (4.20-5.50); Red Cell Distribution Width 15.4 % (11.0-16.0); White Blood Count 9.5 X10*3/uL (4.8-10.8)
[2023-03-15 08:30] LABS: Anion Gap 12 (12-20); Blood Urea Nitrogen 18 mg/dL (9-16); Calcium 9.5 mg/dL (8.4-10.2); Carbon Dioxide 35 mmol/L (22-29); Chloride 100 mmol/L (96-108); Creatinine Clr Calc Pharmacy 36.6; Estimated Glomerular Filt Rate > 60; Glucose Random 182 mg/dL (60-115); Potassium 3.9 mmol/L (3.3-5.1); Sodium 143 mmol/L (135-145)
[2023-03-15] MEDS: Sodium Phosphate,Mono-Dibasic 133 ML ENEMA PR (09:01)
[2023-03-15] MEDS: 0.9 % Sodium Chloride Flush 3 ML SYRINGE IVFLUSH ×3 (09:02→23:59)
[2023-03-15] MEDS: LORazepam 2 MG/ML VIAL 0.5 MG IVPUSH (10:13)
--- NOTE | 2023-03-15 10:42 | HO.PM.IMPN ---
Subjective Subjective Date of Service: 03/15/23 Interval History: She is agitated this morning, refusing to take meds no respiratory difficulty, constipated Physical Exam Vital Signs: Vital Signs: Last Vital Signs Temp 98.7 F 03/15/23 07:14 Pulse 85 03/15/23 08:12 Resp 20 03/15/23 08:12 BP 161/70 H 03/15/23 07:14 Pulse Ox 91 L 03/15/23 07:14 O2 Del Method Nasal Cannula 03/15/23 07:14 O2 Flow Rate 4 03/15/23 07:14 FiO2 35 03/11/23 08:00 Oxygen Flow Rate 6 03/02/23 16:32 BMI result Body Mass Index 24.4 Const: Other: General: confused Resp: CTA bilateral CVS: S1,S2,RRR GI: +BS, NT, no distention Skin: No rash Neuro: motor grossly intact Psych: appropriate affect Objective Data Active Medications Acetaminophen (Acetaminophen 325 Mg Tablet) 650 mg PO Q6H PRN PRN Reason: fever Last Admin: 03/08/23 01:33 Dose: 650 mg Documented By: HALEY Atorvastatin Calcium (Atorvastatin Calcium 80 Mg Tablet) 80 mg PO DAILY [facility] Last Admin: 03/14/23 07:47 Dose: 80 mg Documented By: CLAUDY Donepezil HCl (Donepezil Hcl 10 Mg Tablet) 10 mg PO BEDTIME [facility] Last Admin: 03/14/23 20:42 Dose: 10 mg Documented By: YEVGENIY Enoxaparin Sodium (Enoxaparin Sodium 40 Mg/0.4 Ml Syringe) 40 mg SUBCUT Q24H [facility] Last Admin: 03/14/23 12:18 Dose: 40 mg Documented By: CLAUDY Famotidine (Famotidine 20 Mg Tablet) 20 mg PO BID [facility] Last Admin: 03/14/23 20:42 Dose: 20 mg Documented By: YEVGENIY Fluticasone Propionate (Fluticasone Propionate 100 Mcg Blst.W.Dev) 2 puff INHALE RBID [facility] Last Admin: 03/15/23 08:11 Dose: 2 puff Documented By: TRAVIS Fluticasone Propionate (Fluticasone Propionate Nasal 16 Gm [place]) 2 spray NOSTRIL-B DAILY [facility] Last Admin: 03/14/23 08:08 Dose: 2 spray Documented By: CLAUDY Guaifenesin (Guaifenesin 100 Mg/5 Ml Liquid) 5 ml PO Q4H PRN PRN Reason: Cough Last Admin: 03/12/23 18:15 Dose: 5 ml Documented By: GILES Hydrochlorothiazide (Hydrochlorothiazide 12.5 Mg Tablet) 12.5 mg PO DAILY [facility]; Protocol Last Admin: 03/14/23 07:46 Dose: 12.5 mg Documented By: CLAUDY Insulin Glargine (Insulin Glargine,Hum.Rec.Anlog 100 Unit/Ml 10 Ml Vial) 10 unit SUBCUT DAILY [facility] Last Admin: 03/14/23 07:47 Dose: 10 unit Documented By: CLAUDY Insulin Human Lispro (Insulin Lispro 100 Unit/Ml 3 Ml Vial) 0 unit SUBCUT QIDACHS [facility]; Protocol Last Admin: 03/14/23 20:42 Dose: 2 unit Documented By: YEVGENIY Levothyroxine Sodium (Levothyroxine Sodium 25 Mcg Tablet) 25 mcg PO DAILY@0600 [facility] Last Admin: 03/14/23 05:08 Dose: Not Given Documented By: BENJAMIN Non-Admin Reason: Patient Refused Lorazepam (Lorazepam 2 Mg/Ml Vial) 0.5 mg IVPUSH Q4H PRN PRN Reason: Anxiety Last Admin: 03/15/23 10:13 Dose: 0.5 mg Documented By: BENJAMIN Metoprolol Tartrate (Metoprolol Tartrate 50 Mg Tablet) 50 mg PO DAILY [facility]; Protocol Last Admin: 03/14/23 07:47 Dose: 50 mg Documented By: CLAUDY Multivitamins/Vitamin C (Multivitamin Tablet) 1 tab PO DAILY [facility] Last Admin: 03/14/23 07:47 Dose: 1 tab Documented By: CLAUDY Olanzapine (Olanzapine 2.5 Mg Tablet) 2.5 mg PO BID [facility] Last Admin: 03/14/23 20:42 Dose: 2.5 mg Documented By: YEVGENIY Olanzapine (Olanzapine 5 Mg Tablet) 5 mg PO BID PRN PRN Reason: agitation Last Admin: 03/12/23 21:39 Dose: 5 mg Documented By: ADRIAN Pharmacy Consult (Consult Rx Perform Med Rec) 1 each MISCELLANE ONCE PRN PRN Reason: Consult order Polyethylene Glycol (Polyethylene Glycol 3350 17 Gm Powd.Pack) 17 gm PO DAILY [facility] Prednisone (Prednisone 10 Mg Tablet) 10 mg PO DAILY [facility] Last Admin: 03/14/23 07:47 Dose: 10 mg Documented By: CLAUDY Senna/Docusate Sodium (Sennosides/Docusate Sodium Tablet) 1 tab PO BEDTIME [facility] Sodium Chloride (0.9 % Sodium Chloride Flush 3 Ml Syringe) 3 ml IVFLUSH QSHIFT [facility] Last Admin: 03/15/23 09:02 Dose: 3 ml Documented By: FOGARTB Labs 03/15/23 07:54 03/15/23 07:54 Labs: Laboratory Results - last 24 hr 03/14/23 03/14/23 03/14/23 11:19 15:54 19:29 MCV MCH MCHC RDW Plt Count MPV Absolute Nucleated RBC Nucleated RBC % (auto) Anion Gap Estim Creat Clear Calc Estimated GFR POC Glucose 191 H 257 H 196 H Random Glucose Calcium 03/15/23 03/15/23 03/15/23 07:11 07:54 07:54 MCV 87.2 MCH 26.3 L MCHC 30.2 L RDW 15.4 Plt Count 256 MPV 10.6 Absolute Nucleated RBC 0.000 Nucleated RBC % (auto) 0.0 Anion Gap 12 Estim Creat Clear Calc 36.6 Estimated GFR > 60 POC Glucose 175 H Random Glucose 182 H Calcium 9.5 Assessment and Plan (1) Acute and chronic respiratory failure with hypoxia: Status: Acute (2) Status asthmaticus: Status: Acute (3) Agitation: Status: Acute Plan 82-year-old female with pertinent history of insulin-dependent diabetes mellitus, hypothyroidism, essential hypertension, hyperlipidemia, chronic hypoxemic respiratory failure due to Asthma, SAVANNAH on CPAP with questionable compliance who presented to the ER with progressive dyspnea.? Patient was intubated and admitted to the ICU on 03/03.? Patient was successfully extubated to high-flow nasal cannula and [place] [facility] [place] ?# acute on chronic hypoxemic hypercarbic respiratory failure due to acute severe persistent asthma exacerbation. She was intubated on 03/03 and transferred [place] [facility] after successful extubation on 03/06.? - Continue p.o. Prednisone at 10 for 1 more day. - scheduled and p.r.n. DuoNebs.? - On home O2, goal of sat 93 -empiric Abx stopped on 03/11. ?# Insulin-dependent diabetes mellitus:? Patient on basal plus SSI, hyperglycemia due steroid, lower dose ?# hypothyroidism: On Synthroid ?# mixed hyperlipidemia:? On statin ?# GERD:? On famotidine ?# HTN: Continue home antihypertensives ?# SAVANNAH: Continue CPAP at bedtime # Agiation, likely sun downing and acute situational delirium--seems much calmer this morning seen by Psych 03/11 with the following recommendation Discontinue Quetiapine. Olanzapine 2.5 mg po bid in trial Olanzapine 5 mg po bid prn severe agitation Continue Lorazepam prn. May ask Psych for further adjustment if no good effect with current re # dementia--Arricept # Constiapation--bowel regime, enema DVT prophylaxis:? Lovenox Diabetic diet Full code ? Need for inpatient: Delirium not yet controlled for safe discharge home, anticipate dc in 1 to 2 days daughter is updated on regular basis home by tomorrow if calm and agitation controled, discussed with daughter Time Spent With Patient Time: Total time managing care of this patient today ____ minutes. Quality Stroke Does the patient have a stroke diagnosis?: No VTE Prior VTE?: No VTE Risk Level:: Medical - moderate - high VTE Device Contraindication: N/A - Device Ordered VTE Drug Contraindication: N/A - Med Ordered
[2023-03-15 11:39] LABS: Glucose, Whole Blood 299 mg/dL (60-115)
[2023-03-15] MEDS: Insulin Lispro 100 UNIT/ML 3 ML VIAL SUBCUT ×3 (12:12→23:58)
[2023-03-15 16:47] LABS: Glucose, Whole Blood 324 mg/dL (60-115)
[2023-03-15 20:40] LABS: Glucose, Whole Blood 240 mg/dL (60-115)
[2023-03-15] MEDS: Famotidine 20 MG TABLET PO (23:41)
[2023-03-15] MEDS: Donepezil HCl 10 MG TABLET PO (23:41)
[2023-03-15] MEDS: Sennosides/Docusate Sodium TABLET 1 TAB PO (23:41)
[2023-03-16] VITALS (9 sets, daily range): BP systolic 119–153; BP diastolic 56–74; PULSE 74–88; RESP 18–20; TEMP 36.4–36.9; O2SAT 91–98; BMI 25.2
[2023-03-16] MEDS: Levothyroxine Sodium 25 MCG TABLET PO (05:38)
[2023-03-16 07:26] LABS: Glucose, Whole Blood 184 mg/dL (60-115)
[2023-03-16] MEDS: Fluticasone Propionate 100 MCG BLST.W.DEV 2 PUFF INHALE (07:59)
[2023-03-16] MEDS: predniSONE 10 MG TABLET PO (08:08)
[2023-03-16] MEDS: hydroCHLOROthiazide 12.5 MG TABLET PO (08:08)
[2023-03-16] MEDS: Multivitamin TABLET 1 TAB PO (08:08)
[2023-03-16] MEDS: Insulin Glargine,Hum.rec.anlog 100 UNIT/ML 10 ML VIAL 10 UNIT SUBCUT (08:08)
[2023-03-16] MEDS: Atorvastatin Calcium 80 MG TABLET PO (08:08)
[2023-03-16] MEDS: OLANZapine 2.5 MG TABLET PO (08:08)
[2023-03-16] MEDS: Famotidine 20 MG TABLET PO ×2 (08:08→22:21)
[2023-03-16] MEDS: Metoprolol Tartrate 50 MG TABLET PO (08:08)
[2023-03-16] MEDS: Insulin Lispro 100 UNIT/ML 3 ML VIAL SUBCUT ×3 (08:08→22:21)
[2023-03-16] MEDS: 0.9 % Sodium Chloride Flush 3 ML SYRINGE IVFLUSH ×2 (08:09→14:48)
[2023-03-16] MEDS: Fluticasone Propionate Nasal 16 GM SPRAY 2 SPRAY NOSTRIL-B (08:09)
[2023-03-16 11:00] LABS: Glucose, Whole Blood 264 mg/dL (60-115)
[2023-03-16] MEDS: Enoxaparin Sodium 40 MG/0.4 ML SYRINGE SUBCUT (11:36)
--- NOTE | 2023-03-16 14:18 | HO.PM.IMPN ---
Subjective Subjective Date of Service: 03/17/23 Interval History: seems more calmer Review of Systems does not seems sob, nofevers sitting on chair ,daughter at bedside. Physical Exam Vital Signs: Vital Signs: Last Vital Signs Temp 97.6 F 03/16/23 12:00 Pulse 74 03/16/23 12:00 Resp 20 03/16/23 12:00 BP 131/60 03/16/23 12:00 Pulse Ox 93 03/16/23 12:00 O2 Del Method Nasal Cannula 03/16/23 12:00 O2 Flow Rate 4 03/16/23 12:00 FiO2 35 03/11/23 08:00 Oxygen Flow Rate 6 03/02/23 16:32 BMI result Body Mass Index 25.2 General: confused Resp:? CTA bilateral CVS: S1,S2,RRR GI: +BS, NT, no distention Skin: No rash Neuro:? motor grossly intact Psych: appropriate affect Objective Data Active Medications Acetaminophen (Acetaminophen 325 Mg Tablet) 650 mg PO Q6H PRN PRN Reason: fever Last Admin: 03/08/23 01:33 Dose: 650 mg Documented By: HALEY Atorvastatin Calcium (Atorvastatin Calcium 80 Mg Tablet) 80 mg PO DAILY [facility] Last Admin: 03/16/23 08:08 Dose: 80 mg Documented By: BENJAMIN Donepezil HCl (Donepezil Hcl 10 Mg Tablet) 10 mg PO BEDTIME [facility] Last Admin: 03/15/23 23:41 Dose: 10 mg Documented By: LIZBETH Enoxaparin Sodium (Enoxaparin Sodium 40 Mg/0.4 Ml Syringe) 40 mg SUBCUT Q24H [facility] Last Admin: 03/16/23 11:36 Dose: 40 mg Documented By: BENJAMIN Famotidine (Famotidine 20 Mg Tablet) 20 mg PO BID [facility] Last Admin: 03/16/23 08:08 Dose: 20 mg Documented By: BENJAMIN Fluticasone Propionate (Fluticasone Propionate 100 Mcg Blst.W.Dev) 2 puff INHALE RBID [facility] Last Admin: 03/16/23 07:59 Dose: 2 puff Documented By: DANILO Fluticasone Propionate (Fluticasone Propionate Nasal 16 Gm [place]) 2 spray NOSTRIL-B DAILY [facility] Last Admin: 03/16/23 08:09 Dose: 2 spray Documented By: BENJAMIN Guaifenesin (Guaifenesin 100 Mg/5 Ml Liquid) 5 ml PO Q4H PRN PRN Reason: Cough Last Admin: 03/12/23 18:15 Dose: 5 ml Documented By: GILES Hydrochlorothiazide (Hydrochlorothiazide 12.5 Mg Tablet) 12.5 mg PO DAILY [facility]; Protocol Last Admin: 03/16/23 08:08 Dose: 12.5 mg Documented By: BENJAMIN Insulin Glargine (Insulin Glargine,Hum.Rec.Anlog 100 Unit/Ml 10 Ml Vial) 10 unit SUBCUT DAILY [facility] Last Admin: 03/16/23 08:08 Dose: 10 unit Documented By: BENJAMIN Insulin Human Lispro (Insulin Lispro 100 Unit/Ml 3 Ml Vial) 0 unit SUBCUT QIDACHS [facility]; Protocol Last Admin: 03/16/23 11:36 Dose: 6 unit Documented By: BENJAMIN Levothyroxine Sodium (Levothyroxine Sodium 25 Mcg Tablet) 25 mcg PO DAILY@0600 [facility] Last Admin: 03/16/23 05:38 Dose: 25 mcg Documented By: LIZBETH Lorazepam (Lorazepam 2 Mg/Ml Vial) 0.5 mg IVPUSH Q4H PRN PRN Reason: Anxiety Last Admin: 03/15/23 10:13 Dose: 0.5 mg Documented By: BENJAMIN Metoprolol Tartrate (Metoprolol Tartrate 50 Mg Tablet) 50 mg PO DAILY [facility]; Protocol Last Admin: 03/16/23 08:08 Dose: 50 mg Documented By: BENJAMIN Multivitamins/Vitamin C (Multivitamin Tablet) 1 tab PO DAILY [facility] Last Admin: 03/16/23 08:08 Dose: 1 tab Documented By: BENJAMIN Olanzapine (Olanzapine 2.5 Mg Tablet) 2.5 mg PO BID [facility] Last Admin: 03/16/23 08:08 Dose: 2.5 mg Documented By: BENJAMIN Olanzapine (Olanzapine 5 Mg Tablet) 5 mg PO BID PRN PRN Reason: agitation Last Admin: 03/12/23 21:39 Dose: 5 mg Documented By: ADRIAN Pharmacy Consult (Consult Rx Perform Med Rec) 1 each MISCELLANE ONCE PRN PRN Reason: Consult order Polyethylene Glycol (Polyethylene Glycol 3350 17 Gm Powd.Pack) 17 gm PO DAILY [facility] Last Admin: 03/16/23 08:14 Dose: Not Given Documented By: BENJAMIN Non-Admin Reason: Patient Refused Prednisone (Prednisone 10 Mg Tablet) 10 mg PO DAILY [facility] Last Admin: 03/16/23 08:08 Dose: 10 mg Documented By: BENJAMIN Senna/Docusate Sodium (Sennosides/Docusate Sodium Tablet) 1 tab PO BEDTIME [facility] Last Admin: 03/15/23 23:41 Dose: 1 tab Documented By: LIZBETH Sodium Chloride (0.9 % Sodium Chloride Flush 3 Ml Syringe) 3 ml IVFLUSH QSHIFT [facility] Last Admin: 03/16/23 08:09 Dose: 3 ml Documented By: BENJAMIN Labs 03/15/23 07:54 03/15/23 07:54 Labs: Laboratory Results - last 24 hr 03/15/23 03/15/23 03/16/23 16:38 20:28 07:13 POC Glucose 324 H 240 H 184 H 03/16/23 10:49 POC Glucose 264 H Assessment and Plan (1) Acute and chronic respiratory failure with hypoxia: Status: Acute (2) Status asthmaticus: Status: Acute (3) Agitation: Status: Acute Plan 82-year-old female with pertinent history of insulin-dependent diabetes mellitus, hypothyroidism, essential hypertension, hyperlipidemia, chronic hypoxemic respiratory failure due to Asthma, SAVANNAH on CPAP with questionable compliance who presented to the ER with progressive dyspnea.? Patient was intubated and admitted to the ICU on 03/03.? Patient was successfully extubated to high-flow nasal cannula and transferred to [facility] on 03/06 ? acute on chronic hypoxemic hypercarbic respiratory failure due to acute severe persistent asthma exacerbation. She was intubated on 03/03 and transferred to [facility]? after successful extubation on 03/06.? - Continue p.o. Prednisone at 10 for 1 more day. - scheduled and p.r.n. DuoNebs.? - On home O2, goal of sat 93, we will check home oxygen eval mayconsider pft's and sleep study outpatient -empiric Abx stopped on 03/11. ?Insulin-dependent diabetes mellitus:? Patient on basal plus SSI, hyperglycemia due steroid, lower dose ?hypothyroidism: On Synthroid ? mixed hyperlipidemia:? On statin GERD:? On famotidine ?HTN: Continue home antihypertensives ? SAVANNAH: Continue CPAP at bedtime Agiation, likely sun downing and acute situational delirium--seems much calmer this morning seen by Psych 03/16 ?Olanzapine not useful, nor is Lorazepam. Will return to quetiapine,? 50 mg scheduled at 0800 and 1300 and prn Discontinue Olanzapine Haldol 2 mg IM x1 Lamictal 25 mg 1200 Continue Aricept. dementia--Arricept Constiapation--bowel regime, enema DVT prophylaxis:? Lovenox Full code ? Need for inpatient: Delirium not yet controlled for safe discharge home, anticipate dc in 1 to 2 days daughter is updated on regular basis Time Spent With Patient Time: Total time managing care of this patient today ____ minutes. Quality Stroke Does the patient have a stroke diagnosis?: No VTE Prior VTE?: No VTE Risk Level:: Medical - moderate - high VTE Device Contraindication: N/A - Device Ordered VTE Drug Contraindication: N/A - Med Ordered
[2023-03-16] MEDS: LORazepam 2 MG/ML VIAL 0.5 MG IVPUSH ×2 (14:47→16:26)
[2023-03-16] MEDS: Haloperidol Lactate 5 MG/ML VIAL 2 MG IM (16:59)
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
[2023-03-16 20:09] LABS: Glucose, Whole Blood 321 mg/dL (60-115)
[2023-03-16] MEDS: Donepezil HCl 10 MG TABLET PO (22:21)
[2023-03-16] MEDS: Sennosides/Docusate Sodium TABLET 1 TAB PO (22:35)
[2023-03-17] VITALS (8 sets, daily range): BP systolic 114–157; BP diastolic 53–67; PULSE 65–88; RESP 16–20; TEMP 35.9–37.2; O2SAT 86–97; BMI 24.6
[2023-03-17] MEDS: 0.9 % Sodium Chloride Flush 3 ML SYRINGE IVFLUSH ×3 (06:30→17:46)
[2023-03-17] MEDS: Levothyroxine Sodium 25 MCG TABLET PO (06:30)
[2023-03-17 07:39] LABS: Glucose, Whole Blood 185 mg/dL (60-115)
[2023-03-17] MEDS: Famotidine 20 MG TABLET PO (08:06)
[2023-03-17] MEDS: polyethylene glycoL 3350 17 GM POWD.PACK PO (08:06)
[2023-03-17] MEDS: hydroCHLOROthiazide 12.5 MG TABLET PO (08:06)
[2023-03-17] MEDS: Atorvastatin Calcium 80 MG TABLET PO (08:06)
[2023-03-17] MEDS: Insulin Glargine,Hum.rec.anlog 100 UNIT/ML 10 ML VIAL 10 UNIT SUBCUT (08:07)
[2023-03-17] MEDS: Insulin Lispro 100 UNIT/ML 3 ML VIAL SUBCUT ×4 (08:07→20:29)
[2023-03-17] MEDS: QUEtiapine Fumarate 50 MG TABLET PO (08:07)
[2023-03-17] MEDS: Metoprolol Tartrate 50 MG TABLET PO (08:07)
[2023-03-17] MEDS: Multivitamin TABLET 1 TAB PO (08:07)
[2023-03-17] MEDS: predniSONE 10 MG TABLET PO (08:07)
[2023-03-17] MEDS: Fluticasone Propionate Nasal 16 GM SPRAY 2 SPRAY NOSTRIL-B (08:08)
[2023-03-17] MEDS: Fluticasone Propionate 100 MCG BLST.W.DEV 2 PUFF INHALE (08:14)
[2023-03-17 11:31] LABS: Glucose, Whole Blood 232 mg/dL (60-115)
[2023-03-17] MEDS: Enoxaparin Sodium 40 MG/0.4 ML SYRINGE SUBCUT (12:09)
[2023-03-17] MEDS: lamoTRIgine 25 MG TABLET PO (12:09)
--- NOTE | 2023-03-17 14:52 | P.PNIM_ITS ---
Subjective Subjective Date of Service: 03/18/23 Interval History: dementia with behavioural disturbances Review of Systems seems slightly calm than yesterday more awake no fevers or chills Physical Exam Vital Signs: Vital Signs: Last Vital Signs Temp 97.2 F 03/17/23 11:25 Pulse 71 03/17/23 11:25 Resp 20 03/17/23 11:25 BP 148/65 H 03/17/23 11:25 Pulse Ox 92 03/17/23 11:25 O2 Del Method Nasal Cannula 03/17/23 11:25 O2 Flow Rate 3 03/17/23 11:25 FiO2 35 03/11/23 08:00 Oxygen Flow Rate 6 03/02/23 16:32 BMI result Body Mass Index 24.6 General: confused Resp:? CTA bilateral CVS: S1,S2,RRR GI: +BS, NT, no distention Skin: No rash Neuro:? motor grossly intact Psych: appropriate affect Objective Data Active Medications Acetaminophen (Acetaminophen 325 Mg Tablet) 650 mg PO Q6H PRN PRN Reason: fever Last Admin: 03/08/23 01:33 Dose: 650 mg Documented By: HALEY Atorvastatin Calcium (Atorvastatin Calcium 80 Mg Tablet) 80 mg PO DAILY [facility] Last Admin: 03/17/23 08:06 Dose: 80 mg Documented By: SEEMA Donepezil HCl (Donepezil Hcl 10 Mg Tablet) 10 mg PO BEDTIME [facility] Last Admin: 03/16/23 22:21 Dose: 10 mg Documented By: LIZBETH Enoxaparin Sodium (Enoxaparin Sodium 40 Mg/0.4 Ml Syringe) 40 mg SUBCUT Q24H [facility] Last Admin: 03/17/23 12:09 Dose: 40 mg Documented By: SEEMA Famotidine (Famotidine 20 Mg Tablet) 20 mg PO BID [facility] Last Admin: 03/17/23 08:06 Dose: 20 mg Documented By: SEEMA Fluticasone Propionate (Fluticasone Propionate 100 Mcg Blst.W.Dev) 2 puff INHALE RBID [facility] Last Admin: 03/17/23 08:14 Dose: 2 puff Documented By: GAURANG Fluticasone Propionate (Fluticasone Propionate Nasal 16 Gm [place]) 2 spray NOSTRIL-B DAILY [facility] Last Admin: 03/17/23 08:08 Dose: 2 spray Documented By: SEEMA Guaifenesin (Guaifenesin 100 Mg/5 Ml Liquid) 5 ml PO Q4H PRN PRN Reason: Cough Last Admin: 03/12/23 18:15 Dose: 5 ml Documented By: GILES Hydrochlorothiazide (Hydrochlorothiazide 12.5 Mg Tablet) 12.5 mg PO DAILY [facility]; Protocol Last Admin: 03/17/23 08:06 Dose: 12.5 mg Documented By: SEEMA Insulin Glargine (Insulin Glargine,Hum.Rec.Anlog 100 Unit/Ml 10 Ml Vial) 10 unit SUBCUT DAILY [facility] Last Admin: 03/17/23 08:07 Dose: 10 unit Documented By: SEEMA Insulin Human Lispro (Insulin Lispro 100 Unit/Ml 3 Ml Vial) 0 unit SUBCUT QID [facility]; Protocol Last Admin: 03/17/23 12:09 Dose: 4 unit Documented By: SEEMA Lamotrigine (Lamotrigine 25 Mg Tablet) 25 mg PO DAILY@1200 [facility] Last Admin: 03/17/23 12:09 Dose: 25 mg Documented By: SEEMA Levothyroxine Sodium (Levothyroxine Sodium 25 Mcg Tablet) 25 mcg PO DAILY@0600 [facility] Last Admin: 03/17/23 06:30 Dose: 25 mcg Documented By: LIZBETH Lorazepam (Lorazepam 2 Mg/Ml Vial) 0.5 mg IVPUSH Q4H PRN PRN Reason: Anxiety Last Admin: 03/16/23 14:47 Dose: 0.5 mg Documented By: DAVID Metoprolol Tartrate (Metoprolol Tartrate 50 Mg Tablet) 50 mg PO DAILY [facility]; Protocol Last Admin: 03/17/23 08:07 Dose: 50 mg Documented By: SEEMA Multivitamins/Vitamin C (Multivitamin Tablet) 1 tab PO DAILY [facility] Last Admin: 03/17/23 08:07 Dose: 1 tab Documented By: SEEMA Pharmacy Consult (Consult Rx Perform Med Rec) 1 each MISCELLANE ONCE PRN PRN Reason: Consult order Polyethylene Glycol (Polyethylene Glycol 3350 17 Gm Powd.Pack) 17 gm PO DAILY [facility] Last Admin: 03/17/23 08:06 Dose: 17 gm Documented By: SEEMA Prednisone (Prednisone 10 Mg Tablet) 10 mg PO DAILY [facility] Last Admin: 03/17/23 08:07 Dose: 10 mg Documented By: SEEMA Quetiapine Fumarate (Quetiapine Fumarate 50 Mg Tablet) 50 mg PO 0800,1300 [facility] Last Admin: 03/17/23 08:07 Dose: 50 mg Documented By: SEEMA Quetiapine Fumarate (Quetiapine Fumarate 50 Mg Tablet) 50 mg PO BID PRN PRN Reason: agitation Senna/Docusate Sodium (Sennosides/Docusate Sodium Tablet) 1 tab PO BEDTIME [facility] Last Admin: 03/16/23 22:35 Dose: 1 tab Documented By: LIZBETH Sodium Chloride (0.9 % Sodium Chloride Flush 3 Ml Syringe) 3 ml IVFLUSH QSHIFT [facility] Last Admin: 03/17/23 08:08 Dose: 3 ml Documented By: SEEMA Labs 03/15/23 07:54 03/15/23 07:54 Labs: Laboratory Results - last 24 hr 03/16/23 03/17/23 03/17/23 20:02 07:29 11:28 POC Glucose 321 H 185 H 232 H Assessment and Plan (1) Acute and chronic respiratory failure with hypoxia: Status: Acute (2) Status asthmaticus: Status: Acute (3) Agitation: Status: Acute Plan 82-year-old female with pertinent history of insulin-dependent diabetes mellitus, hypothyroidism, essential hypertension, hyperlipidemia, chronic hypoxemic respiratory failure due to Asthma, SAVANNAH on CPAP with questionable compliance who presented to the ER with progressive dyspnea.? Patient was intubated and admitted to the ICU on 03/03.? Patient was successfully extubated to high-flow nasal cannula and transferred to [facility] [place] 03[place]06 ? acute on chronic hypoxemic hypercarbic respiratory failure due to acute severe persistent asthma exacerbation. She was intubated on 03/03 and transferred to [facility]? after successful extubation on 03/06.? - Continue p.o. Prednisone at 10 for 1 more day. - scheduled and p.r.n. DuoNebs.? - On home O2, goal of sat 93, we will check home oxygen eval mayconsider pft's and sleep study outpatient -empiric Abx stopped on 03/11. ?Insulin-dependent diabetes mellitus:? Patient on basal plus SSI, hyperglycemia due steroid, lower dose ?hypothyroidism: On Synthroid ? mixed hyperlipidemia:? On statin GERD:? On famotidine ?HTN: Continue home antihypertensives ? SAVANNAH: Continue CPAP at bedtime Agiation, likely sun downing and acute situational delirium--seems much calmer this morning, seen by Psych 03/16 ?Olanzapine not useful, nor is Lorazepam. Will return to quetiapine,? 50 mg scheduled at 0800 and 1300 and prn Discontinue Olanzapine Haldol 2 mg IM x1 Lamictal 25 mg 1200 Continue Aricept. dementia--Arricept Constiapation--bowel regime, enema DVT prophylaxis:? Lovenox Full code ? Need for inpatient: Delirium not yet controlled for safe discharge home, anticipate dc in 1 to 2 days daughter is updated on regular basis Time Spent With Patient Time: Total time managing care of this patient today ____ minutes. Quality Stroke Does the patient have a stroke diagnosis?: No VTE Prior VTE?: No VTE Risk Level:: Medical - moderate - high VTE Device Contraindication: N/A - Device Ordered VTE Drug Contraindication: N/A - Med Ordered
--- NOTE | 2023-03-17 15:45 | MHC.CM.PN ---
EMR REVIEWED, PT RECOMMENDED STR, DTR INITIALLY DECLINED STR HOWEVER WOULD NOW LIKE PT TO GO TO STR, BROAD REFERRAL PLACED D/T DEMENTIA DX, PSYCH FOLLOWING AND MED CHANGES MADE W/OUT EFFECT, PSYCH TO REVISIT AND CM WILL CONT TO FOLLOW AND REFERRAL D/C NEEDS. [place] [facility] WILL FOLLOW HOWEVER HAVE NOT OFFERED A BED.
[2023-03-17 15:58] LABS: Glucose, Whole Blood 247 mg/dL (60-115)
[2023-03-17 19:42] LABS: Glucose, Whole Blood 292 mg/dL (60-115)
[2023-03-18 03:22] VITALS: BP 130/60; PULSE 76; RESP 18; TEMP 37.1; O2SAT 92
[2023-03-18] MEDS: QUEtiapine Fumarate 50 MG TABLET PO ×2 (04:52→20:05)
[2023-03-18] MEDS: Levothyroxine Sodium 25 MCG TABLET PO (05:26)
[2023-03-18 06:00] VITALS: BMI 24.6
[2023-03-18 07:22] LABS: Glucose, Whole Blood 181 mg/dL (60-115)
[2023-03-18 07:38] VITALS: BP 141/64; PULSE 77; RESP 20; TEMP 36.3; O2SAT 96
[2023-03-18] MEDS: hydroCHLOROthiazide 12.5 MG TABLET PO (08:07)
[2023-03-18] MEDS: Atorvastatin Calcium 80 MG TABLET PO (08:07)
[2023-03-18] MEDS: polyethylene glycoL 3350 17 GM POWD.PACK PO (08:07)
[2023-03-18] MEDS: Famotidine 20 MG TABLET PO ×2 (08:07→20:05)
[2023-03-18] MEDS: Metoprolol Tartrate 50 MG TABLET PO (08:07)
[2023-03-18] MEDS: Insulin Glargine,Hum.rec.anlog 100 UNIT/ML 10 ML VIAL 10 UNIT SUBCUT (08:07)
[2023-03-18] MEDS: Multivitamin TABLET 1 TAB PO (08:07)
[2023-03-18] MEDS: 0.9 % Sodium Chloride Flush 3 ML SYRINGE IVFLUSH ×2 (08:07→17:25)
[2023-03-18] MEDS: Insulin Lispro 100 UNIT/ML 3 ML VIAL SUBCUT ×4 (08:07→20:07)
[2023-03-18] MEDS: predniSONE 10 MG TABLET PO (08:07)
[2023-03-18] MEDS: Fluticasone Propionate Nasal 16 GM SPRAY 2 SPRAY NOSTRIL-B (08:08)
--- NOTE | 2023-03-18 09:49 | MHC.CM.PN ---
EMR REVIEWED, PT HAS HAD NO BED OFFERS, REFERRAL EXPANDED TO ADDITIONAL FACILITIES CONTRACTED W/PT'S INSURANCE, CM WILL CONT TO FOLLOW.
[2023-03-18 11:27] LABS: Glucose, Whole Blood 210 mg/dL (60-115)
[2023-03-18 11:51] VITALS: BP 137/63; PULSE 79; RESP 20; TEMP 36.4; O2SAT 92
[2023-03-18] MEDS: lamoTRIgine 25 MG TABLET PO (12:19)
[2023-03-18] MEDS: Enoxaparin Sodium 40 MG/0.4 ML SYRINGE SUBCUT (12:19)
--- NOTE | 2023-03-18 13:48 | MHC.CM.PN ---
IMM 03/18/23 DELIVERED TO DTR/HCP AT BEDSIDE, DTR REPORTS SHE IS AGREEABLE TO A GERIPSYCH ADMISSION AND WAS ASKING WHAT VISITING HRS ARE, CM CONTACTED [facility] WHO REPORTED VISITING HOURS ARE 9-7PM HOWEVER NO VISITS DURING MEAL TIMES AND VISITOR WILL NEED TO BE SCHEDULED AHEAD TO [phone]. CM WILL CONT TO FOLLOW D/C NEEDS.
[2023-03-18 15:20] VITALS: BP 132/58; PULSE 78; RESP 15; TEMP 36.6; O2SAT 94
[2023-03-18 16:00] LABS: Glucose, Whole Blood 255 mg/dL (60-115)
--- NOTE | 2023-03-18 16:16 | HO.PM.IMPN ---
Subjective Subjective Date of Service: 03/19/23 Interval History: dementia Review of Systems seems more calmer does not seems sob, nofevers sitting on chair ,daughter at bedside. Physical Exam Vital Signs: Vital Signs: Last Vital Signs Temp 97.9 F 03/18/23 15:20 Pulse 78 03/18/23 15:20 Resp 15 03/18/23 15:20 BP 132/58 L 03/18/23 15:20 Pulse Ox 94 03/18/23 15:20 O2 Del Method Nasal Cannula 03/18/23 15:20 O2 Flow Rate 2 03/18/23 15:20 FiO2 35 03/11/23 08:00 Oxygen Flow Rate 6 03/02/23 16:32 BMI result Body Mass Index 24.6 General: awake ,seems near baseline , somewhat sleepy Resp:? CTA bilateral CVS: S1,S2,RRR GI: +BS, NT, no distention Skin: No rash Neuro:? motor grossly intact Psych: appropriate affect Objective Data Active Medications Acetaminophen (Acetaminophen 325 Mg Tablet) 650 mg PO Q6H PRN PRN Reason: fever Last Admin: 03/08/23 01:33 Dose: 650 mg Documented By: HALEY Atorvastatin Calcium (Atorvastatin Calcium 80 Mg Tablet) 80 mg PO DAILY [facility] Last Admin: 03/18/23 08:07 Dose: 80 mg Documented By: SEEMA Donepezil HCl (Donepezil Hcl 10 Mg Tablet) 10 mg PO BEDTIME [facility] Last Admin: 03/17/23 22:18 Dose: Not Given Documented By: HALEY Non-Admin Reason: Patient Asleep Enoxaparin Sodium (Enoxaparin Sodium 40 Mg/0.4 Ml Syringe) 40 mg SUBCUT Q24H [facility] Last Admin: 03/18/23 12:19 Dose: 40 mg Documented By: SEEMA Famotidine (Famotidine 20 Mg Tablet) 20 mg PO BID [facility] Last Admin: 03/18/23 08:07 Dose: 20 mg Documented By: SEEMA Fluticasone Propionate (Fluticasone Propionate 100 Mcg Blst.W.Dev) 2 puff INHALE RBID [facility] Last Admin: 03/18/23 07:44 Dose: Not Given Documented By: RICARDO Non-Admin Reason: See Note Fluticasone Propionate (Fluticasone Propionate Nasal 16 Gm [place]) 2 spray NOSTRIL-B DAILY [facility] Last Admin: 03/18/23 08:08 Dose: 2 spray Documented By: SEEMA Guaifenesin (Guaifenesin 100 Mg/5 Ml Liquid) 5 ml PO Q4H PRN PRN Reason: Cough Last Admin: 03/12/23 18:15 Dose: 5 ml Documented By: GILES Hydrochlorothiazide (Hydrochlorothiazide 12.5 Mg Tablet) 12.5 mg PO DAILY [facility]; Protocol Last Admin: 03/18/23 08:07 Dose: 12.5 mg Documented By: SEEMA Insulin Glargine (Insulin Glargine,Hum.Rec.Anlog 100 Unit/Ml 10 Ml Vial) 10 unit SUBCUT DAILY [facility] Last Admin: 03/18/23 08:07 Dose: 10 unit Documented By: SEEMA Insulin Human Lispro (Insulin Lispro 100 Unit/Ml 3 Ml Vial) 0 unit SUBCUT QIDACHS [facility]; Protocol Last Admin: 03/18/23 12:19 Dose: 4 unit Documented By: SEEMA Lamotrigine (Lamotrigine 25 Mg Tablet) 25 mg PO DAILY@1200 [facility] Last Admin: 03/18/23 12:19 Dose: 25 mg Documented By: SEEMA Levothyroxine Sodium (Levothyroxine Sodium 25 Mcg Tablet) 25 mcg PO DAILY@0600 [facility] Last Admin: 03/18/23 05:26 Dose: 25 mcg Documented By: HALEY Lorazepam (Lorazepam 2 Mg/Ml Vial) 0.5 mg IVPUSH Q4H PRN PRN Reason: Anxiety Last Admin: 03/16/23 14:47 Dose: 0.5 mg Documented By: DAVID Metoprolol Tartrate (Metoprolol Tartrate 50 Mg Tablet) 50 mg PO DAILY [facility]; Protocol Last Admin: 03/18/23 08:07 Dose: 50 mg Documented By: SEEMA Multivitamins/Vitamin C (Multivitamin Tablet) 1 tab PO DAILY [facility] Last Admin: 03/18/23 08:07 Dose: 1 tab Documented By: SEEMA Pharmacy Consult (Consult Rx Perform Med Rec) 1 each MISCELLANE ONCE PRN PRN Reason: Consult order Polyethylene Glycol (Polyethylene Glycol 3350 17 Gm Powd.Pack) 17 gm PO DAILY [facility] Last Admin: 03/18/23 08:07 Dose: 17 gm Documented By: SEEMA Prednisone (Prednisone 10 Mg Tablet) 10 mg PO DAILY [facility] Last Admin: 03/18/23 08:07 Dose: 10 mg Documented By: SEEMA Quetiapine Fumarate (Quetiapine Fumarate 50 Mg Tablet) 50 mg PO 0800,1300 [facility] Last Admin: 03/18/23 12:24 Dose: Not Given Documented By: SEEMA Non-Admin Reason: Patient Asleep Quetiapine Fumarate (Quetiapine Fumarate 50 Mg Tablet) 50 mg PO BID PRN PRN Reason: agitation Last Admin: 03/18/23 04:52 Dose: 50 mg Documented By: HALEY Senna/Docusate Sodium (Sennosides/Docusate Sodium Tablet) 1 tab PO BEDTIME [facility] Last Admin: 03/17/23 22:18 Dose: Not Given Documented By: HALEY Non-Admin Reason: Patient Asleep Sodium Chloride (0.9 % Sodium Chloride Flush 3 Ml Syringe) 3 ml IVFLUSH QSHIFT [facility] Last Admin: 03/18/23 08:07 Dose: 3 ml Documented By: SEEMA Labs 03/15/23 07:54 03/15/23 07:54 Labs: Laboratory Results - last 24 hr 03/17/23 03/18/23 03/18/23 19:37 07:11 11:24 POC Glucose 292 H 181 H 210 H 03/18/23 15:52 POC Glucose 255 H Assessment and Plan (1) Acute and chronic respiratory failure with hypoxia: Status: Acute (2) Status asthmaticus: Status: Acute (3) Agitation: Status: Acute Plan 82-year-old female with pertinent history of insulin-dependent diabetes mellitus, hypothyroidism, essential hypertension, hyperlipidemia, chronic hypoxemic respiratory failure due to Asthma, SAVANNAH on CPAP with questionable compliance who presented to the ER with progressive dyspnea.? Patient was intubated and admitted to the ICU on 03/03.? Patient was successfully extubated to high-flow nasal cannula and transferred to [facility] on 03/06 ? acute on chronic hypoxemic hypercarbic respiratory failure due to acute severe persistent asthma exacerbation. She was intubated on 03/03 and transferred to [facility]? after successful extubation on 03/06.? - Continue p.o. Prednisone at 10 for 1 more day. - scheduled and p.r.nJosé Miguel Jovel.? - On home O2, goal of sat 93, we will check home oxygen eval mayconsider pft's and sleep study outpatient -empiric Abx stopped on 03/11. ?Insulin-dependent diabetes mellitus:? Patient on basal plus SSI, hyperglycemia due steroid, lower dose ?hypothyroidism: On Synthroid ? mixed hyperlipidemia:? On statin GERD:? On famotidine ?HTN: Continue home antihypertensives ? SAVANNAH: Continue CPAP at bedtime Agiation, likely sun downing and acute situational delirium--seems much calmer this morning, seen by Psych 03/16 ?Olanzapine not useful, nor is Lorazepam. Will return to quetiapine,? 50 mg scheduled at 0800 and 1300 and prn Discontinue Olanzapine Haldol 2 mg IM x1 Lamictal 25 mg 1200 Continue Aricept. dementia--Arricept Constiapation--bowel regime, enema DVT prophylaxis:? Lovenox Full code ? Need for inpatient: Delirium not yet controlled for safe discharge home, anticipate dc in 1 to 2 days daughter is updated on regular basis Time Spent With Patient Time: Total time managing care of this patient today ____ minutes. Quality Stroke Does the patient have a stroke diagnosis?: No VTE Prior VTE?: No VTE Risk Level:: Medical - moderate - high VTE Device Contraindication: N/A - Device Ordered VTE Drug Contraindication: N/A - Med Ordered
[2023-03-18 19:13] VITALS: BP 131/77; PULSE 84; RESP 15; TEMP 36.2; O2SAT 94
[2023-03-18 19:54] LABS: Glucose, Whole Blood 316 mg/dL (60-115)
[2023-03-18] MEDS: Donepezil HCl 10 MG TABLET PO (20:05)
[2023-03-18] MEDS: LORazepam 2 MG/ML VIAL 0.5 MG IVPUSH (21:21)
[2023-03-19] VITALS (8 sets, daily range): BP systolic 132–157; BP diastolic 60–69; PULSE 61–90; RESP 14–20; TEMP -17.7–36.4; O2SAT 92–97
[2023-03-19 08:17] LABS: Glucose, Whole Blood 200 mg/dL (60-115)
[2023-03-19] MEDS: 0.9 % Sodium Chloride Flush 3 ML SYRINGE IVFLUSH ×2 (08:37→17:05)
[2023-03-19] MEDS: LORazepam 2 MG/ML VIAL 0.5 MG IVPUSH ×2 (08:37→21:41)
[2023-03-19] MEDS: Famotidine 20 MG TABLET PO ×2 (08:46→21:32)
[2023-03-19] MEDS: Atorvastatin Calcium 80 MG TABLET PO (08:46)
[2023-03-19] MEDS: Multivitamin TABLET 1 TAB PO (08:46)
[2023-03-19] MEDS: Levothyroxine Sodium 25 MCG TABLET PO (08:46)
[2023-03-19] MEDS: predniSONE 10 MG TABLET PO (08:46)
[2023-03-19] MEDS: Metoprolol Tartrate 50 MG TABLET PO (08:47)
[2023-03-19] MEDS: Insulin Lispro 100 UNIT/ML 3 ML VIAL SUBCUT ×4 (08:47→21:33)
[2023-03-19] MEDS: Insulin Glargine,Hum.rec.anlog 100 UNIT/ML 10 ML VIAL 10 UNIT SUBCUT (08:47)
[2023-03-19] MEDS: hydroCHLOROthiazide 12.5 MG TABLET PO (08:47)
[2023-03-19] MEDS: polyethylene glycoL 3350 17 GM POWD.PACK PO (08:57)
[2023-03-19] MEDS: Fluticasone Propionate Nasal 16 GM SPRAY 2 SPRAY NOSTRIL-B (09:04)
[2023-03-19 09:48] LABS: Magnesium 1.4 mg/dL (1.6-2.6); Potassium 3.9 mmol/L (3.3-5.1)
[2023-03-19] MEDS: Magnesium Sulfate/H2O 2 GM/50 ML PIGGYBACK IV (10:49)
[2023-03-19 11:20] LABS: Glucose, Whole Blood 278 mg/dL (60-115)
--- NOTE | 2023-03-19 11:27 | MHC.CM.PN ---
PT TO BE MEDICALLY CLEARED FOR D/C TO [facility] LATER TODAY, CM TO UPDATE DTR AND IMM DELIVERED TO DTR AT BEDSIDE 03/18/23.
[2023-03-19] MEDS: Enoxaparin Sodium 40 MG/0.4 ML SYRINGE SUBCUT (12:06)
[2023-03-19] MEDS: QUEtiapine Fumarate 50 MG TABLET PO ×2 (12:06→21:32)
[2023-03-19] MEDS: lamoTRIgine 25 MG TABLET PO (12:06)
--- NOTE | 2023-03-19 15:31 | HO.PM.IMPN ---
Subjective Subjective Date of Service: 03/19/23 Interval History: dementia hypomagnesium Review of Systems seems more calmer does not seems sob, nofevers sitting on chair ,daughter at bedside. Physical Exam Vital Signs: Vital Signs: Last Vital Signs Temp 97.5 F 03/19/23 15:18 Pulse 69 03/19/23 15:18 Resp 14 03/19/23 15:18 BP 132/60 03/19/23 15:18 Pulse Ox 92 03/19/23 15:18 O2 Del Method Nasal Cannula 03/19/23 15:18 O2 Flow Rate 3 03/19/23 15:18 FiO2 35 03/11/23 08:00 Oxygen Flow Rate 6 03/02/23 16:32 BMI result Body Mass Index 24.6 General: awake ,seems near baseline , somewhat sleepy Resp:? CTA bilateral CVS: S1,S2,RRR GI: +BS, NT, no distention Skin: No rash Neuro:? motor grossly intact Psych: appropriate affect Objective Data Active Medications Acetaminophen (Acetaminophen 325 Mg Tablet) 650 mg PO Q6H PRN PRN Reason: fever Last Admin: 03/08/23 01:33 Dose: 650 mg Documented By: HALEY Atorvastatin Calcium (Atorvastatin Calcium 80 Mg Tablet) 80 mg PO DAILY [facility] Last Admin: 03/19/23 08:46 Dose: 80 mg Documented By: BEST Donepezil HCl (Donepezil Hcl 10 Mg Tablet) 10 mg PO BEDTIME [facility] Last Admin: 03/18/23 20:05 Dose: 10 mg Documented By: CLAUS Enoxaparin Sodium (Enoxaparin Sodium 40 Mg/0.4 Ml Syringe) 40 mg SUBCUT Q24H [facility] Last Admin: 03/19/23 12:06 Dose: 40 mg Documented By: BEST Famotidine (Famotidine 20 Mg Tablet) 20 mg PO BID [facility] Last Admin: 03/19/23 08:46 Dose: 20 mg Documented By: BEST Fluticasone Propionate (Fluticasone Propionate 100 Mcg Blst.W.Dev) 2 puff INHALE RBID [facility] Last Admin: 03/19/23 07:30 Dose: Not Given Documented By: RICARDO Non-Admin Reason: See Note Fluticasone Propionate (Fluticasone Propionate Nasal 16 Gm [place]) 2 spray NOSTRIL-B DAILY [facility] Last Admin: 03/19/23 09:04 Dose: 2 spray Documented By: BEST Guaifenesin (Guaifenesin 100 Mg/5 Ml Liquid) 5 ml PO Q4H PRN PRN Reason: Cough Last Admin: 03/12/23 18:15 Dose: 5 ml Documented By: GILES Hydrochlorothiazide (Hydrochlorothiazide 12.5 Mg Tablet) 12.5 mg PO DAILY [facility]; Protocol Last Admin: 03/19/23 08:47 Dose: 12.5 mg Documented By: BEST Insulin Glargine (Insulin Glargine,Hum.Rec.Anlog 100 Unit/Ml 10 Ml Vial) 10 unit SUBCUT DAILY [facility] Last Admin: 03/19/23 08:47 Dose: 10 unit Documented By: BEST Insulin Human Lispro (Insulin Lispro 100 Unit/Ml 3 Ml Vial) 0 unit SUBCUT QIDACHS [facility]; Protocol Last Admin: 03/19/23 12:05 Dose: 6 unit Documented By: BEST Lamotrigine (Lamotrigine 25 Mg Tablet) 25 mg PO DAILY@1200 [facility] Last Admin: 03/19/23 12:06 Dose: 25 mg Documented By: BEST Levothyroxine Sodium (Levothyroxine Sodium 25 Mcg Tablet) 25 mcg PO DAILY@0600 [facility] Last Admin: 03/19/23 08:46 Dose: 25 mcg Documented By: BEST Lorazepam (Lorazepam 2 Mg/Ml Vial) 0.5 mg IVPUSH Q4H PRN PRN Reason: Anxiety Last Admin: 03/19/23 08:37 Dose: 0.5 mg Documented By: BEST Comments: Magnesium Oxide (Magnesium Oxide 400 Mg Tablet) [facility] Metoprolol Tartrate (Metoprolol Tartrate 50 Mg Tablet) 50 mg PO DAILY [facility]; Protocol Last Admin: 03/19/23 08:47 Dose: 50 mg Documented By: BEST Multivitamins/Vitamin C (Multivitamin Tablet) 1 tab PO DAILY [facility] Last Admin: 03/19/23 08:46 Dose: 1 tab Documented By: BEST Pharmacy Consult (Consult Rx Perform Med Rec) 1 each MISCELLANE ONCE PRN PRN Reason: Consult order Polyethylene Glycol (Polyethylene Glycol 3350 17 Gm Powd.Pack) 17 gm PO DAILY [facility] Last Admin: 03/19/23 08:57 Dose: 17 gm Documented By: BEST Prednisone (Prednisone 10 Mg Tablet) 10 mg PO DAILY [facility] Last Admin: 03/19/23 08:46 Dose: 10 mg Documented By: BEST Quetiapine Fumarate (Quetiapine Fumarate 50 Mg Tablet) 50 mg PO 0800,1300 [facility] Last Admin: 03/19/23 12:06 Dose: 50 mg Documented By: BEST Quetiapine Fumarate (Quetiapine Fumarate 50 Mg Tablet) 50 mg PO BID PRN PRN Reason: agitation Last Admin: 03/18/23 20:05 Dose: 50 mg Documented By: CLAUS Senna/Docusate Sodium (Sennosides/Docusate Sodium Tablet) 1 tab PO BEDTIME [facility] Last Admin: 03/18/23 22:05 Dose: Not Given Documented By: CLAUS Non-Admin Reason: Patient Refused Sodium Chloride (0.9 % Sodium Chloride Flush 3 Ml Syringe) 3 ml IVFLUSH QSHIFT [facility] Last Admin: 03/19/23 08:37 Dose: 3 ml Documented By: BEST Labs 03/15/23 07:54 03/19/23 09:20 Labs: Laboratory Results - last 24 hr 03/18/23 03/18/23 03/19/23 15:52 19:51 08:10 POC Glucose 255 H 316 H 200 H Magnesium 03/19/23 03/19/23 03/19/23 09:20 11:09 14:40 POC Glucose 278 H Magnesium 1.4 L* 2.0 Assessment and Plan (1) Acute and chronic respiratory failure with hypoxia: Status: Acute (2) Status asthmaticus: Status: Acute (3) Agitation: Status: Acute Plan 82-year-old female with pertinent history of insulin-dependent diabetes mellitus, hypothyroidism, essential hypertension, hyperlipidemia, chronic hypoxemic respiratory failure due to Asthma, SAVANNAH on CPAP with questionable compliance who presented to the ER with progressive dyspnea.? Patient was intubated and admitted to the ICU on 03/03.? Patient was successfully extubated to high-flow nasal cannula and transferred to [facility] on 03/06 hypomagnesium : given iv magnesium, added po magnesium-repleted and resolved. ? acute on chronic hypoxemic hypercarbic respiratory failure due to acute severe persistent asthma exacerbation. She was intubated on 03/03 and transferred to [facility]? after successful extubation on 03/06.? - Continue p.o. Prednisone at 10 for 1 more day. - scheduled and p.r.n. DuoNebs.? - On home O2, goal of sat 93, we will check home oxygen eval mayconsider pft's and sleep study outpatient -empiric Abx stopped on 03/11. ?Insulin-dependent diabetes mellitus:? Patient on basal plus SSI, hyperglycemia due steroid, lower dose ?hypothyroidism: On Synthroid ? mixed hyperlipidemia:? On statin GERD:? On famotidine ?HTN: Continue home antihypertensives ? SAVANNAH: Continue CPAP at bedtime Agiation, likely sun downing and acute situational delirium--seems much calmer this morning, seen by Psych 03/16 ?Olanzapine not useful, nor is Lorazepam. Will return to quetiapine,? 50 mg scheduled at 0800 and 1300 and prn Discontinue Olanzapine Haldol 2 mg IM x1 Lamictal 25 mg 1200 Continue Aricept. Patient was seen by care team and psych-patient is to go psych for behavioral stabilization dementia--Arricept Constiapation--bowel regime, enema DVT prophylaxis:? Lovenox Full code ? Need for inpatient: Awaiting placement to psych, Patient was seen by care team and psych-patient is to go psych for behavioral stabilization Time Spent With Patient Time: Total time managing care of this patient today ____ minutes. Quality Stroke Does the patient have a stroke diagnosis?: No VTE Prior VTE?: No VTE Risk Level:: Medical - moderate - high VTE Device Contraindication: N/A - Device Ordered VTE Drug Contraindication: N/A - Med Ordered
[2023-03-19 16:28] LABS: Glucose, Whole Blood 305 mg/dL (60-115)
[2023-03-19] MEDS: Magnesium Oxide 400 MG TABLET 800 MG PO (17:04)
[2023-03-19 20:11] LABS: Glucose, Whole Blood 423 mg/dL (60-115)
[2023-03-19] MEDS: Sennosides/Docusate Sodium TABLET 1 TAB PO (21:32)
[2023-03-19] MEDS: Donepezil HCl 10 MG TABLET PO (21:32)
[2023-03-19] MEDS: Insulin Lispro 100 UNIT/ML 3 ML VIAL 10 UNIT SUBCUT (21:33)
[2023-03-19] MEDS: OLANZapine 10 MG VIAL 5 MG IM (23:10)
--- NOTE | 2023-03-19 23:30 | PC.NURSE ---
Pt was agitated/ combative w/ staff, trying to get OOB and unredirecatble. Daughter was present and unable to redirect Pt. Pt had received prn ativan and seroquel w/ no effect. MD Burroughs notified and ordered IM Zyprexa. Med given.
[2023-03-20] VITALS: RESP 20
[2023-03-20] LABS: Glucose, Whole Blood 163 mg/dL (60-115)
[2023-03-20 04:00] VITALS: BP 147/66; PULSE 79; RESP 14; TEMP 36.2; O2SAT 93
--- NOTE | 2023-03-20 04:05 | PC.NURSE ---
BG was 423, MD notified and ordered an additional 10u sc insulin. Total of 20 units given. Pt rechecked and was 163.
[2023-03-20 06:00] VITALS: BMI 25.2
[2023-03-20 07:27] VITALS: BP 108/62; PULSE 87; RESP 20; TEMP 37.1; O2SAT 93
[2023-03-20 07:51] LABS: Glucose, Whole Blood 181 mg/dL (60-115)
[2023-03-20] MEDS: Famotidine 20 MG TABLET PO (08:07)
[2023-03-20] MEDS: Magnesium Oxide 400 MG TABLET 800 MG PO (08:07)
[2023-03-20] MEDS: hydroCHLOROthiazide 12.5 MG TABLET PO (08:07)
[2023-03-20] MEDS: polyethylene glycoL 3350 17 GM POWD.PACK PO (08:07)
[2023-03-20] MEDS: Metoprolol Tartrate 50 MG TABLET PO (08:07)
[2023-03-20] MEDS: Multivitamin TABLET 1 TAB PO (08:07)
[2023-03-20] MEDS: QUEtiapine Fumarate 50 MG TABLET PO (08:07)
[2023-03-20] MEDS: predniSONE 10 MG TABLET PO (08:07)
[2023-03-20] MEDS: Atorvastatin Calcium 80 MG TABLET PO (08:07)
[2023-03-20] MEDS: Insulin Lispro 100 UNIT/ML 3 ML VIAL SUBCUT ×2 (08:07→11:22)
[2023-03-20] MEDS: Insulin Glargine,Hum.rec.anlog 100 UNIT/ML 10 ML VIAL 10 UNIT SUBCUT (08:08)
--- NOTE | 2023-03-20 10:35 | PC.NURSE ---
sitter and family at bedside. pt noncompliant at times. database modeler utilized for med pass and assessment
--- NOTE | 2023-03-20 10:55 | P.DS_ITS ---
DS: Providers Provider Date of Service: 03/20/23 Date of admission: 03/03/23 08:25 Date of discharge: 03/20/23 Primary care physician: Jaime Pugh MD Consults: 03/11/23 13:27 Consult to Psychiatry Routine Consulting Provider: Psych Covering Reason for consultation: Dementia with behavior disturbance, please help with management. Has provider been notified: No 03/19/23 08:42 Consult for Sitter Routine Reason for consultation: behaviour agitation Has provider been notified: No Attending physician on discharge: Ashleigh Tyson Discharging clinician: Ashleigh Tyson DS: Diagnosis Discharge Diagnosis (1) Acute and chronic respiratory failure with hypoxia: Status: Acute (2) Status asthmaticus: Status: Acute (3) Agitation: Status: Acute DS: Summary Hospital Course Hospital Course: 82-year-old morbidly obese type 2 diabetic and hypertensive and hyperlipidemic with longstanding COPD and apparently obstructive sleep apnea but noncompliant presents with progressive dyspnea but progressive altered mental status with an agitated delirium and noted acute respiratory acidosis with pCO2 67 yet was sedated with repeated doses of lorazepam and and Haldol and diphenhydramine ultimately resulting in the necessity for intubation due to failure on noninvasive ventilation and has been on propofol drip ever since was given high- dose albuterol and 1 dose of steroids and 1 dose of ceftriaxone and [place] through my sin but the review of the CT scan of the chest failed to show a distinct infiltrate and definitely negative for pulmonary embolism ?at this point it appears to be in a potentially an asthmatic bronchitis leading to a status? asthmaticus and she or he looks much more comfortable on positive- pressure along with Q 4 hourly bronchodilators and steroids ?bedside echo LV systolic function is fine but she has a reduced E to a wave ratio on Doppler indicating at least an early diastolic relaxation abnormality of the ventricle and probably the degree of concentric left ventricular hypertrophy as well. Hospital course: Patient was admitted for acute on chronic hypercarbic respiratory failure secondary to acute severe persistent asthma exacerbation-initially was admitted to the ICU requiring intubation, also received nebs, steroids, antibiotics - seems to be improved and subsequently sent to the floor, patient shortness of breath seems to be improved significantly, but still require oxygen around 2-3 L. maintain saturation around 90 %.patient will need home oxygen eval before discharge. Please continue incentive spirometry and chest physiotherapy in psych as patient cooperate. Diabetes with mild hyperglycemia :fs are running 160-300 , continue current insulin regimen ,moniter fs. check Hba1c. Dementia with behavior disturbances: Continue Aricept, other behavior medication needed will be decided as per Ps ychiatry. Hypomagnesemia: Repleted and resolved, continue few magnesium. Constipation continue bowel regimen-Colace and MiraLax p.r.n. Above management discussed with the patient's daughter in detail length.psych doc to doc completed. Time Spent with Patient Time attestation: Total time managing care of this patient today ____ minutes. Discharge coordination time: Greater than 30 minutes Quality: Safe Use of Opioids Does Pt have an Active Cancer Diagnosis on the Problem List?: No Quality: Stroke Does the patient have a stroke diagnosis?: No Physical Exam Vital Signs: Vital Signs: Last Vital Signs Temp 98.7 F 03/20/23 07:27 Pulse 87 03/20/23 07:27 Resp 20 03/20/23 07:27 BP 108/62 03/20/23 07:27 Pulse Ox 93 03/20/23 07:27 O2 Del Method Nasal Cannula 03/20/23 07:27 O2 Flow Rate 2 03/20/23 07:27 FiO2 35 03/11/23 08:00 Oxygen Flow Rate 6 03/02/23 16:32 BMI result Body Mass Index 25.2 General: awake ,seems near baseline , somewhat sleepy Resp:? CTA bilateral CVS: S1,S2,RRR GI: +BS, NT, no distention Skin: No rash Neuro:? motor grossly intact Psych: appropriate affect DS: Data Data Completed and Pending Labs on day of discharge: Laboratory Results - last 24 hr 03/19/23 03/19/23 03/19/23 11:09 14:40 16:21 POC Glucose 278 H 305 H Magnesium 2.0 03/19/23 03/19/23 03/20/23 20:07 23:54 07:37 POC Glucose 423 H* 163 H 181 H Magnesium Imaging Chest x-ray: Radiologist's impression: ITS Impressions Chest X-Ray 03/02/23 17:28 IMPRESSION: Increased interstitial thickening bilaterally raising the possibility of small airways disease or atypical/viral infections in the appropriate clinical context. Chest CT 03/02/23 19:21 IMPRESSION: Motion degraded examination. 1. No focal airspace opacity or significant groundglass disease. 2. Asymmetric soft tissue prominence of the left breast, nonspecific. If the patient is due, correlation with mammographic examinations is recommended. 3. Cardiomegaly and coronary calcifications, correlate with cardiovascular risk factors. Chest CTA 03/02/23 23:44 IMPRESSION: Significantly limited evaluation due to extensive motion artifact. While no central pulmonary embolus is seen, emboli in the lobar, segmental, or subsegmental vessels cannot be excluded. VTE: indeterminate. Chest X-Ray 03/03/23 03:22 IMPRESSION: Endotracheal tube tip 2.4 cm above the sukhdev. Enteric tube courses into the stomach. Somewhat streaky bibasilar opacities, which may reflect atelectasis. Prominent central vasculature. Chest X-Ray 03/08/23 01:25 IMPRESSION: Low lung volumes with mild bibasilar opacities which may represent atelectasis though developing consolidation would be difficult to exclude with fever. Short-term radiographic follow-up is advised. Discharge Plan Discharge Anticipated Discharge Date/Time: 03/11/23 16:02 Patient Disposition: Xfer Psychiatric Hosp Discharge Diagnosis: acute on chronic hypoxemic hypercarbic respiratory failure due to acute severe persistent asthma exacerbation , dementia with behavioural disturbances Referrals: [facility] [Other] - 1 Week Jaime Pugh MD [Primary Care Provider] - 1 Week Discharge Medications: Continued (DME) ELECTRIC WHEELCHAIR See Rx Instructions .Route .MEDSUPPLY Qty: 1 0RF Rx Instructions: As directed metoprolol tartrate 50 mg tablet 50 mg PO DAILY Qty: 90 3RF albuterol sulfate 90 mcg/actuation HFA aerosol inhaler 2 puff inhalation Q6H PRN (Reason: shortness of breath or wheezing) 30 Days Qty: 8.5 12RF rosuvastatin 40 mg tablet 40 mg PO DAILY 90 Days Qty: 90 1RF (DME) blood-glucose meter [OneTouch Ultra2 Meter] Kit See Rx Instructions .Route Qty: 1 0RF Rx Instructions: twice a day (DME) insulin syringe-needle U-100 [BD Insulin Syringe Ultra-Fine] 1 mL 31 gauge x 5/16 syringe See Rx Instructions .ROUTE .MEDSUPPLY Qty: 10 0RF Rx Instructions: use twice a day (DME) OneTouch Ultra Test Strip See Rx Instructions .Route Qty: 100 0RF Rx Instructions: twice a day meloxicam 15 mg tablet 15 mg PO DAILY Qty: 30 0RF famotidine 20 mg tablet 20 mg PO BID Qty: 180 1RF mometasone 50 mcg/actuation spray,non-aerosol 2 spray intranasal DAILY Qty: 51 1RF donepezil 10 mg tablet 10 mg PO BEDTIME 90 Days Qty: 90 1RF cholecalciferol (vitamin D3) 1,250 mcg (50,000 unit) capsule 1,250 mcg PO QWEEK hydrochlorothiazide 12.5 mg tablet 12.5 mg PO DAILY 90 Days Qty: 90 1RF fluticasone propionate [Flovent HFA] 110 mcg/actuation HFA aerosol inhaler 2 puff inhalation BID 30 Days Qty: 12 5RF omeprazole 20 mg capsule,delayed release(DR/EC) 40 mg PO DAILY Qty: 180 3RF levothyroxine 25 mcg tablet 25 mcg PO DAILY Qty: 90 1RF (DME) insulin syringe-needle U-100 [BD Insulin Syringe Ultra-Fine] 1 mL 31 gauge x 5/16 syringe See Rx Instructions .ROUTE .COMPLEX Qty: 60 6RF Dose Instruction: USE 1 MISCELLANEOUS 2 TIMES A DAY Rx Instructions: USE 1 MISCELLANEOUS 2 TIMES A DAY ergocalciferol (vitamin D2) 1,250 mcg (50,000 unit) capsule 1,250 mcg PO QWEEK 90 Days Qty: 13 3RF coenzyme Q10 [Co Q-10] 100 mg capsule 100 mg PO DAILY 90 Days Qty: 90 3RF (DME) blood sugar diagnostic Strip See Rx Instructions .ROUTE .MEDSUPPLY Qty: 100 3RF Rx Instructions: As directed loratadine 10 mg capsule 10 mg PO DAILY PRN (Reason: allergy symptoms) 90 Days Qty: 90 3RF multivitamin Tablet 1 tab PO DAILY 90 Days Qty: 90 3RF Held tizanidine 4 mg tablet 4 mg PO BEDTIME PRN (Reason: muscle spasm/cramps) 90 Days Qty: 90 1RF Hold Instructions: Resume on 04/12/23. Humalog Mix 75-25(U-100)Insuln 100 unit/mL (75-25) suspension 50 unit subcut BID 90 Days Qty: 90 1RF Hold Instructions: Resume on 04/12/23. hold currently patient is on sliding scale Discharge Orders: Discharge Order (Routine); Ordered 03/20/23 Ordered By: Ashleigh Tyson Diet: Diabetic diet Activity on Discharge: As tolerated Stand Alone Forms: Patient Portal Discharge page Care Plan Goals: Patient was admitted for acute on chronic hypercarbic respiratory failure secondary to acute severe persistent asthma exacerbation-initially was admitted to the ICU requiring intubation, also received nebs, steroids, antibiotics - seems to be improved and subsequently sent to the floor, patient shortness of breath seems to be improved significantly, but still require oxygen around 2-3 L. maintain saturation around 90 %.patient will need home oxygen eval before discharge. Diabetes:fs are running 160-300 , continue current insulin regimen ,moniter fs. check Hba1c. Dementia with behavior disturbances: Continue Aricept, other behavior medication needed will be decided as per Psychiatry. Hypomagnesemia: Repleted and resolved, continue few magnesium. Constipation continue bowel regimen-Colace and MiraLax p.r.n. Above management discussed with the patient's daughter in detail length.psych doc to doc completed. Health Concerns: as above. Plan of Treatment: as above. Assessment: as above.
--- NOTE | 2023-03-20 11:04 | MHC.CM.PN ---
Patient has been medically cleared for dc to [facility].
[2023-03-20 11:06] LABS: Glucose, Whole Blood 244 mg/dL (60-115)
[2023-03-20] MEDS: Enoxaparin Sodium 40 MG/0.4 ML SYRINGE SUBCUT (11:22)
[2023-03-20] MEDS: lamoTRIgine 25 MG TABLET PO (11:27)
[2023-03-20 11:28] VITALS: BP 153/69; PULSE 74; RESP 20; TEMP 37; O2SAT 93
== END 2023-03-20 12:31 | DRG 208 ==
LOC: HO.ED 22:45 → HO.EDOVER 03-03 08:33 → HO.ICU 03-03 08:49 → HO.IMC 03-06 19:09
PROVIDERS: Internal Medicine; Physician Assistant; Physician Assistant Medical; Student in an Organized Health Care Education/Training Program; Admitting Provider Internal Medicine Cardiovascular Disease; Emergency Provider Emergency Medicine; PCP Internal Medicine; Visit Provider Internal Medicine
DX: J45.52 Severe persistent asthma with status asthmaticus (principal); J18.9 Pneumonia, unspecified organism; J96.21 Acute and chronic respiratory failure with hypoxia; J96.22 Acute and chronic respiratory failure with hypercapnia; E66.2 Morbid (severe) obesity with alveolar hypoventilation; J44.0 Chronic obstructive pulmonary disease with (acute) lower respiratory infection; Z68.43 Body mass index [BMI] 50.0-59.9, adult; F05 Delirium due to known physiological condition; F03.911 Unspecified dementia, unspecified severity, with agitation; E03.9 Hypothyroidism, unspecified; E78.2 Mixed hyperlipidemia; F17.210 Nicotine dependence, cigarettes, uncomplicated; Z71.6 Tobacco abuse counseling; K59.00 Constipation, unspecified; K21.9 Gastro-esophageal reflux disease without esophagitis; E11.65 Type 2 diabetes mellitus with hyperglycemia; E83.42 Hypomagnesemia; Z20.822 Contact with and (suspected) exposure to COVID-19; Z91.199 Patient's noncompliance with other medical treatment and regimen due to unspecified reason; Z79.4 Long term (current) use of insulin; Z79.51 Long term (current) use of inhaled steroids; Z79.890 Hormone replacement therapy; Z79.899 Other long term (current) drug therapy
CPT/HCPCS: 36415; 36600; 71045; 71250; 71275; 80048; 80053; 80076; 80202; 81001; 82565; 82803; 82947; 83605; 83735; 83880; 84132; 84145; 84484; 85025; 85027; 85730; 87040; 87086; 87635; 93005; 94002; 94003; 94640; 94660; 97110; 97162; 97530; 99285; C1758; J0456; J0696; J1200; J1643; J1650; J1940; J1956; J2060; J2250; J2543; J2930; J3010; J3370; J3371; J3475; Q9967; S9485

== ENCOUNTER 2023-03-20 12:29 | Inpatient (IN) | payer OTHER, MEDICAID, SELFPAY ==
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
[2023-03-20 16:59] LABS: Glucose, Whole Blood 349 mg/dL (60-115)
[2023-03-20] MEDS: Insulin Lispro 100 UNIT/ML 3 ML VIAL SUBCUT ×2 (17:00→21:20)
[2023-03-20 17:15] VITALS: BP 146/68; PULSE 76; RESP 16; TEMP 36.4; O2SAT 94
[2023-03-20 18:00] VITALS: BP 141/63; PULSE 68; RESP 18; TEMP 36.4; O2SAT 94
--- NOTE | 2023-03-20 19:04 | PC.NURSE ---
Blood sugar prior to supper 349. Pt sedated at time, questionable whether she would be eating supper. Hospitalist, Andrews Smith, on unit and questioned whether pt should be covered with prescribed sliding scale as pt may not be eating supper. Pt to be given prescribed sliding scale and hospitalist will review all insulin orders. Pt did wake and ate all supper. Received 8 units Lispro Insulin for coverage.
[2023-03-20 20:30] VITALS: BP 138/80; PULSE 80; RESP 18; O2SAT 92
[2023-03-20] MEDS: Fluticasone Propionate 100 MCG BLST.W.DEV 2 PUFF INHALE (20:35)
[2023-03-20] MEDS: Donepezil HCl 10 MG TABLET PO (20:36)
[2023-03-20] MEDS: Sennosides/Docusate Sodium TABLET 1 TAB PO (20:36)
[2023-03-20] MEDS: Famotidine 20 MG TABLET PO (20:37)
[2023-03-20] MEDS: traZODone HCL 50 MG TABLET PO ×2 (20:53→22:05)
[2023-03-20 21:07] LABS: Glucose, Whole Blood 274 mg/dL (60-115)
[2023-03-20] MEDS: LORazepam 2 MG/ML VIAL IM (23:56)
--- NOTE | 2023-03-21 03:01 | PC.NURSE ---
Pt. at 23:00h attempting to get out of bed, wants to leave and became agitated, confused,hitting, punching and kicking staff. Pt. offered PRN Seroquel po for agitation but pt. refused it by spitting it out. Pt offered snacks and toileting also but pt refused. Referred to DR. Heber Thorpe with order to give Lorazepam 2 mg. IM. given at 23:56H W/ good effect. VS taken and recorded. Pt. maintained on 1:1 observation for safety. Family notified at 01:00h regarding the incident. We'll continue to monitor pt.
--- NOTE | 2023-03-21 04:03 | PC.NURSE ---
Hospitalist, Jaden Burroughs notified at 00:16 and seen at 00:20h.
[2023-03-21 07:44] LABS: Glucose, Whole Blood 154 mg/dL (60-115)
[2023-03-21 08:15] VITALS: BP 134/62; PULSE 86; RESP 20; TEMP 36.1; O2SAT 92
[2023-03-21] MEDS: Insulin Lispro 100 UNIT/ML 3 ML VIAL SUBCUT ×3 (09:04→16:39)
[2023-03-21] MEDS: Magnesium Oxide 400 MG TABLET 800 MG PO ×2 (09:16→16:39)
[2023-03-21] MEDS: Multivitamin TABLET 1 TAB PO (09:16)
[2023-03-21] MEDS: Metoprolol Succinate ER 50 MG TAB.ER.24H PO (09:17)
[2023-03-21] MEDS: Famotidine 20 MG TABLET PO (09:18)
[2023-03-21] MEDS: Levothyroxine Sodium 25 MCG TABLET PO (09:18)
[2023-03-21] MEDS: predniSONE 10 MG TABLET PO (09:18)
[2023-03-21] MEDS: Insulin Glargine,Hum.rec.anlog 100 UNIT/ML 10 ML VIAL 10 UNIT SUBCUT (09:19)
[2023-03-21] MEDS: Omeprazole 40 MG CAPSULE.DR PO (09:19)
[2023-03-21] MEDS: hydroCHLOROthiazide 12.5 MG TABLET PO (09:19)
[2023-03-21] MEDS: polyethylene glycoL 3350 17 GM POWD.PACK PO (09:32)
[2023-03-21] MEDS: Fluticasone Propionate 100 MCG BLST.W.DEV 2 PUFF INHALE (09:37)
[2023-03-21 10:00] VITALS: BP 144/60; PULSE 92; RESP 22; TEMP 36.8; O2SAT 90
--- NOTE | 2023-03-21 10:56 | HO.PSYCHPN ---
Subjective Subjective Date of Service: 03/21/23 Reason For Visit: Dementia w behavioral disturbance, psychosis Subjective Notes: Conditional Voluntary Healthcare Proxy: Yes (Healthcare proxy is invoked in light of her current mental status) Medical Problems Affecting Mental Status: Yes (Respiratory issues) Interim History: Patient was seen and discussed in rounds today. Records and plans were reviewed. She was transferred from the medical unit yesterday. Current medications were continued. She did well upon admission however last night she started becoming more aggressive, pulling out her oxygen cannulae I and was physically aggressive towards the staff. She was given Ativan 2 mg IM with very good effect and slept all night. This morning she is in bed, with her oxygen on and adequate saturation. In light of her current mental status and having received the healthcare proxy from her daughter her healthcare proxy is invoked. Medication Compliance: Yes Side effects from medications: No Attending Groups: No Review of Systems Acute medical concerns: Yes Respiratory and diabetes Review of Systems Reports behavioral changes and Reports confusion Psychiatric: Reports behavioral changes, Reports confusion, Reports difficulty concentrating, Reports irritability, Reports mood swings, Reports paranoia, Reports visual hallucinations and Reports hallucinations Mental Status Exam Mental Status Exam Narrative: In today's visit she is alert, minimally interactive even with the help of an pit shovel operator. Minimal speech. No eye contact. Affect is constricted. Could not assess any symptoms of psychosis. She does appear to be confused. No dangerous behaviors. Intermittent aggressive behaviors as was observed last night. Judgment is impaired. Cognitively impaired. Diagnostics Vital Signs (24Hr): Vital Signs - 24 hr 03/20/23 17:15 03/20/23 18:00 03/21/23 08:15 Temperature 97.6 F 97.5 F 97.0 F Pulse Rate 76 68 86 Respiratory Rate 16 18 20 Blood Pressure 146/68 H 141/63 H 134/62 Pulse Oximetry 94 94 92 Oxygen Delivery Method Nasal Cannula Room Air Room Air Oxygen Flow Rate 2 Labs Labs: Laboratory Results - last 48 hr 03/20/23 03/20/23 03/21/23 16:28 20:49 07:39 POC Glucose 349 H 274 H 154 H Medications Medications Current Medications Acetaminophen (Acetaminophen 325 Mg Tablet) 650 mg PO Q6H PRN PRN Reason: fever Al Hydroxide/Mg Hydroxide (Magnesium Hydrox/Alum Hydrox 30 Ml Oral.Susp) 30 ml PO Q6H PRN PRN Reason: Heartburn/Nausea Albuterol Sulfate (Albuterol Sulfate 90 Mcg 8 Gm Inhaler) 2 puff INHALE RQ6H PRN PRN Reason: wheeze Donepezil HCl (Donepezil Hcl 10 Mg Tablet) 10 mg PO BEDTIME [facility] Last Admin: 03/20/23 20:36 Dose: 10 mg Enoxaparin Sodium (Enoxaparin Sodium 40 Mg/0.4 Ml Syringe) 40 mg SUBCUT Q24H [facility] Ergocalciferol (Ergocalciferol (Vitamin D2) 1,250 Mcg Capsule) 1,250 mcg PO Sa@1000 [facility] Famotidine (Famotidine 20 Mg Tablet) 20 mg PO BID [facility] Last Admin: 03/21/23 09:18 Dose: 20 mg Fluticasone Propionate (Fluticasone Propionate 100 Mcg Blst.W.Dev) 2 puff INHALE RBID [facility] Last Admin: 03/21/23 09:37 Dose: 2 puff Guaifenesin (Guaifenesin 100 Mg/5 Ml Liquid) 5 ml PO Q4H PRN PRN Reason: Cough Hydrochlorothiazide (Hydrochlorothiazide 12.5 Mg Tablet) 12.5 mg PO DAILY [facility]; Protocol Last Admin: 03/21/23 09:19 Dose: 12.5 mg Insulin Glargine (Insulin Glargine,Hum.Rec.Anlog 100 Unit/Ml 10 Ml Vial) 10 unit SUBCUT DAILY [facility] Last Admin: 03/21/23 09:19 Dose: 10 unit Insulin Human Lispro (Insulin Lispro 100 Unit/Ml 3 Ml Vial) 0 unit SUBCUT QIDACHS [facility]; Protocol Last Admin: 03/21/23 09:04 Dose: 2 unit Lamotrigine (Lamotrigine 25 Mg Tablet) 25 mg PO DAILY@1200 [facility] Levothyroxine Sodium (Levothyroxine Sodium 25 Mcg Tablet) 25 mcg PO DAILY@0630 [facility] Last Admin: 03/21/23 09:18 Dose: 25 mcg Loratadine (Loratadine 10 Mg Tablet) 10 mg PO DAILY PRN PRN Reason: allergy symptoms Magnesium Hydroxide (Milk Of Magnesia 30 Ml Oral.Susp) 30 ml PO DAILY PRN PRN Reason: Constipation Magnesium Oxide (Magnesium Oxide 400 Mg Tablet) 800 mg PO BIDPC [facility] Last Admin: 03/21/23 09:16 Dose: 800 mg Metoprolol Succinate (Metoprolol Succinate Er 50 Mg Tab.Er.24h) 50 mg PO DAILY [facility]; Protocol Last Admin: 03/21/23 09:17 Dose: 50 mg Multivitamins/Vitamin C (Multivitamin Tablet) 1 tab PO DAILY [facility] Last Admin: 03/21/23 09:16 Dose: 1 tab Omeprazole (Omeprazole 40 Mg Capsule.Dr) 40 mg PO DAILY@0630 [facility] Last Admin: 03/21/23 09:19 Dose: 40 mg Pharmacy Consult (Consult Rx Perform Med Rec) 1 each MISCELLANE ONCE PRN PRN Reason: Consult order Polyethylene Glycol (Polyethylene Glycol 3350 17 Gm Powd.Pack) 17 gm PO DAILY [facility] Last Admin: 03/21/23 09:32 Dose: 17 gm Prednisone (Prednisone 10 Mg Tablet) 10 mg PO DAILY [facility] Last Admin: 03/21/23 09:18 Dose: 10 mg Quetiapine Fumarate (Quetiapine Fumarate 50 Mg Tablet) 50 mg PO BID PRN PRN Reason: agitation Senna/Docusate Sodium (Sennosides/Docusate Sodium Tablet) 1 tab PO BEDTIME [facility] Last Admin: 03/20/23 20:36 Dose: 1 tab Trazodone HCl (Trazodone Hcl 50 Mg Tablet) 50 mg PO BEDTIME MRX1 PRN PRN Reason: Insomnia Last Admin: 03/20/23 22:05 Dose: 50 mg Allergies Allergies Allergy/AdvReac Type Severity Reaction Status Date / Time No Known Allergies Allergy Verified 03/02/23 16:08 Assessment & Plan Assessment & Plan (1) Dementia with behavioral disturbance: Status: Acute Code(s): F03.918 - Unspecified dementia, unspecified severity, with other behavioral disturbance Plan 82 yo female, recovering from acute on chronic hypoxemix hypercarbic respiratory failure due to acute severe persistent asthma exacerbation, with dementia with behavioral disturbance, question of delirium. Plan: Continue current regime Collateral contact with family Monitor behavior and adjust medications as needed 03/21: Continue current regimen and plans with one-to-one observation which was put in place last night after her aggressive behavior and need to be restrained chemically Reason for continued inpatient stay Substantial Risk for: inability to function Time Spent With Patient Time: Total time managing care of this patient today ____ minutes.
[2023-03-21 11:56] LABS: Glucose, Whole Blood 206 mg/dL (60-115)
[2023-03-21] MEDS: lamoTRIgine 25 MG TABLET PO (12:02)
[2023-03-21] MEDS: Enoxaparin Sodium 40 MG/0.4 ML SYRINGE SUBCUT (12:03)
[2023-03-21 16:31] LABS: Glucose, Whole Blood 356 mg/dL (60-115)
--- NOTE | 2023-03-21 16:46 | PC.NURSE ---
POC blood sugar 356 at 1627. Andrews Smith hospitalist notified of BS per protocol. Pt to be given 10 units Lispro Insulin per sliding scale and recheck BS at hs. HgbA1c ordered for today. Lispro Insulin 10 units sc given at 1639.
[2023-03-21 17:33] LABS: Estimated Average Glucose 194 mg/dL; Hemoglobin A1c % 8.4 %
[2023-03-21 18:00] VITALS: BP 146/65; PULSE 107; RESP 18; TEMP 36.9; O2SAT 88
[2023-03-21 19:30] VITALS: RESP 16; O2SAT 93
--- NOTE | 2023-03-21 19:30 | PC.NURSE ---
Hospitalist, Andrews Smith, notified of HgbA1c results-8.4. Sugars will be reviewed tomorrow by hospitalist with possible changes to meds.
[2023-03-21] MEDS: traZODone HCL 50 MG TABLET PO (20:01)
[2023-03-21] MEDS: QUEtiapine Fumarate 50 MG TABLET PO (20:01)
[2023-03-21] MEDS: LORazepam 2 MG/ML VIAL IM (20:57)
[2023-03-21 21:00] VITALS: BP 142/72; PULSE 76; RESP 16; O2SAT 92
[2023-03-21 21:34] LABS: Glucose, Whole Blood 222 mg/dL (60-115)
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
[2023-03-22 07:53] LABS: Glucose, Whole Blood 221 mg/dL (60-115)
--- NOTE | 2023-03-22 08:30 | PC.RT ---
pt has been refusing to wear bipap at night. It was been several days since she has worn it. This order will be dc'd
[2023-03-22 09:01] LABS: Alanine Aminotransferase 25 U/L (0-31); Albumin Level 3.3 g/dL (3.5-5.0); Alkaline Phosphatase 70 U/L (39-117); Anion Gap 10 (12-20); Aspartate Amino Transferase 17 U/L (5-31); Bilirubin Total 0.6 mg/dL (0.0-1.0); Blood Urea Nitrogen 18 mg/dL (9-16); Calcium 9.7 mg/dL (8.4-10.2); Carbon Dioxide 40 mmol/L (22-29); Chloride 96 mmol/L (96-108); Cholesterol 144 mg/dL; Estimated Glomerular Filt Rate > 60; Glucose Fasting 218 mg/dL (60-99); HDL Cholesterol 50 mg/dL; LDL Cholesterol Calculated 72 mg/dl; Potassium 4.4 mmol/L (3.3-5.1); Sodium 142 mmol/L (135-145); Total Protein 6.1 g/dL (6.5-8.0); Triglycerides 113 mg/dL
--- NOTE | 2023-03-22 09:58 | P.PNPSI_ITS ---
Subjective Subjective Date of Service: 03/22/23 Reason For Visit: Dementia w behavioral disturbance, psychosis Subjective Notes: Conditional Voluntary Healthcare Proxy: Yes Interim History: The nursing staff reported that in the last 2 days she was transferred from Medicine she had been acting out mostly in the evening stating that she wants to go home, agitated 6 seeking. She is on oxygen and one-to-one and from the last 2 days she had receive Ativan 2 mg IM. Today the staff noticed the patient was over-sedated the morning, We are invoking her healthcare proxy. We discussed options and we are going to start trazodone 25 mg p.o. t.i.d. to target anxiety and a low dose of Seroquel at 17:00 to prevent delirium and agitation. About 1 pm she was extremely confused and needed to give her Zydis PRN. Extremely confused, stating that she has to go to her home to take care of her mother. Mental Status Exam Mental Status Exam Patient Appearance: Appropriate Patient Orientation: Person Level of Consciousness: Disoriented and Restless Patient Behavior: Guarded, Passive and Suspicious Mood Description: Withdrawn Affect Description: Labile Patient Cognition Impaired: Yes Ability to Follow Directions: Good Speech Pattern: Impoverished Hallucinations: Auditory Delusions: Paranoid Ideation and Ideas of Reference Thought Process: Incoherent, Illogical and Distracted Thought Content: positive for [place] and positive for Circumstantial Judgement: Poor Diagnostics Vital Signs (24Hr): Vital Signs - 24 hr 03/21/23 18:00 03/21/23 19:30 Temperature 98.4 F Pulse Rate 107 H Respiratory Rate 18 16 Blood Pressure 146/65 H Pulse Oximetry 88 L 93 Oxygen Delivery Method Room Air Nasal Cannula Oxygen Flow Rate 2 Labs 03/22/23 07:50 Labs: Laboratory Results - last 48 hr 03/20/23 03/20/23 03/21/23 16:28 20:49 07:39 Sodium Potassium Chloride Carbon Dioxide Anion Gap BUN Creatinine Estim Creat Clear Calc Estimated GFR POC Glucose 349 H 274 H 154 H Fasting Glucose Estimat Average Glucose Hemoglobin A1c % Calcium Total Bilirubin AST ALT Alkaline Phosphatase Total Protein Albumin Triglycerides Cholesterol LDL Cholesterol, Calc HDL Cholesterol 03/21/23 03/21/23 03/21/23 11:53 16:27 16:56 Sodium Potassium Chloride Carbon Dioxide Anion Gap BUN Creatinine Estim Creat Clear Calc Estimated GFR POC Glucose 206 H 356 H* Fasting Glucose Estimat Average Glucose 194 Hemoglobin A1c % 8.4 Calcium Total Bilirubin AST ALT Alkaline Phosphatase Total Protein Albumin Triglycerides Cholesterol LDL Cholesterol, Calc HDL Cholesterol 03/21/23 03/22/23 03/22/23 20:53 07:47 07:50 Sodium 142 Potassium 4.4 Chloride 96 Carbon Dioxide 40 H* Anion Gap 10 L BUN 18 H Creatinine 0.84 Estim Creat Clear Calc TNP Estimated GFR > 60 POC Glucose 222 H 221 H Fasting Glucose 218 H Estimat Average Glucose Hemoglobin A1c % Calcium 9.7 Total Bilirubin 0.6 AST 17 ALT 25 Alkaline Phosphatase 70 Total Protein 6.1 L Albumin 3.3 L Triglycerides 113 Cholesterol 144 LDL Cholesterol, Calc 72 HDL Cholesterol 50 Medications Medications Current Medications Acetaminophen (Acetaminophen 325 Mg Tablet) 650 mg PO Q6H PRN PRN Reason: fever Al Hydroxide/Mg Hydroxide (Magnesium Hydrox/Alum Hydrox 30 Ml Oral.Susp) 30 ml PO Q6H PRN PRN Reason: Heartburn/Nausea Albuterol Sulfate (Albuterol Sulfate 90 Mcg 8 Gm Inhaler) 2 puff INHALE RQ6H PRN PRN Reason: wheeze Donepezil HCl (Donepezil Hcl 10 Mg Tablet) 10 mg PO BEDTIME [facility] Last Admin: 03/22/23 03:08 Dose: Not Given Enoxaparin Sodium (Enoxaparin Sodium 40 Mg/0.4 Ml Syringe) 40 mg SUBCUT Q24H [facility] Last Admin: 03/21/23 12:03 Dose: 40 mg Ergocalciferol (Ergocalciferol (Vitamin D2) 1,250 Mcg Capsule) 1,250 mcg PO Sa@1000 [facility] Famotidine (Famotidine 20 Mg Tablet) 20 mg PO BID [facility] Last Admin: 03/22/23 03:09 Dose: Not Given Fluticasone Propionate (Fluticasone Propionate 100 Mcg Blst.W.Dev) 2 puff IN CABRALES RBID [facility] Last Admin: 03/22/23 03:08 Dose: Not Given Guaifenesin (Guaifenesin 100 Mg/5 Ml Liquid) 5 ml PO Q4H PRN PRN Reason: Cough Hydrochlorothiazide (Hydrochlorothiazide 12.5 Mg Tablet) 12.5 mg PO DAILY [facility]; Protocol Last Admin: 03/21/23 09:19 Dose: 12.5 mg Insulin Glargine (Insulin Glargine,Hum.Rec.Anlog 100 Unit/Ml 10 Ml Vial) 10 unit SUBCUT DAILY [facility] Last Admin: 03/21/23 09:19 Dose: 10 unit Insulin Human Lispro (Insulin Lispro 100 Unit/Ml 3 Ml Vial) 0 unit SUBCUT QIDACHS [facility]; Protocol Last Admin: 03/22/23 03:09 Dose: Not Given Lamotrigine (Lamotrigine 25 Mg Tablet) 25 mg PO DAILY@1200 [facility] Last Admin: 03/21/23 12:02 Dose: 25 mg Levothyroxine Sodium (Levothyroxine Sodium 25 Mcg Tablet) 25 mcg PO DAILY@0630 [facility] Last Admin: 03/21/23 09:18 Dose: 25 mcg Loratadine (Loratadine 10 Mg Tablet) 10 mg PO DAILY PRN PRN Reason: allergy symptoms Magnesium Hydroxide (Milk Of Magnesia 30 Ml Oral.Susp) 30 ml PO DAILY PRN PRN Reason: Constipation Magnesium Oxide (Magnesium Oxide 400 Mg Tablet) 800 mg PO BIDPC [facility] Last Admin: 03/21/23 16:39 Dose: 800 mg Metoprolol Succinate (Metoprolol Succinate Er 50 Mg Tab.Er.24h) 50 mg PO DAILY [facility]; Protocol Last Admin: 03/21/23 09:17 Dose: 50 mg Multivitamins/Vitamin C (Multivitamin Tablet) 1 tab PO DAILY [facility] Last Admin: 03/21/23 09:16 Dose: 1 tab Omeprazole (Omeprazole 40 Mg Capsule.Dr) 40 mg PO DAILY@0630 [facility] Last Admin: 03/21/23 09:19 Dose: 40 mg Pharmacy Consult (Consult Rx Perform Med Rec) 1 each MISCELLANE ONCE PRN PRN Reason: Consult order Polyethylene Glycol (Polyethylene Glycol 3350 17 Gm Powd.Pack) 17 gm PO DAILY [facility] Last Admin: 03/21/23 09:32 Dose: 17 gm Prednisone (Prednisone 10 Mg Tablet) 10 mg PO DAILY [facility] Last Admin: 03/21/23 09:18 Dose: 10 mg Quetiapine Fumarate (Quetiapine Fumarate 50 Mg Tablet) 50 mg PO BID PRN PRN Reason: agitation Last Admin: 03/21/23 20:01 Dose: 50 mg Senna/Docusate Sodium (Sennosides/Docusate Sodium Tablet) 1 tab PO BEDTIME [facility] Last Admin: 03/22/23 03:09 Dose: Not Given Trazodone HCl (Trazodone Hcl 50 Mg Tablet) 50 mg PO BEDTIME MRX1 PRN PRN Reason: Insomnia Last Admin: 03/21/23 20:01 Dose: 50 mg Trazodone HCl (Trazodone Hcl 25 Mg Halftab) 25 mg PO TID ANUJ Allergies Allergies Allergy/AdvReac Type Severity Reaction Status Date / Time No Known Allergies Allergy Verified 03/02/23 16:08 Assessment & Plan Assessment & Plan (1) Dementia with behavioral disturbance: Status: Acute Code(s): F03.918 - Unspecified dementia, unspecified severity, with other behavioral disturbance Plan 82 yo female, recovering from acute on chronic hypoxemix hypercarbic respiratory failure due to acute severe persistent asthma exacerbation, with dementia with behavioral disturbance, question of delirium. Plan: Continue current regime Collateral contact with family Monitor behavior and adjust medications as needed Healthcare proxy invoked today Started Trazodone 25 mg po tid on 03/22 Started on Seroquel 100 mg po at 5 pm on 03/22 Zydis PRN agitation Reason for continued inpatient stay Substantial Risk for: inability to function, rapid decompensation and med/psych decompensation Time Spent With Patient Time: Total time managing care of this patient today __20__ minutes.
[2023-03-22] MEDS: Multivitamin TABLET 1 TAB PO (10:11)
[2023-03-22] MEDS: predniSONE 10 MG TABLET PO (10:11)
[2023-03-22] MEDS: Omeprazole 40 MG CAPSULE.DR PO (10:11)
[2023-03-22] MEDS: hydroCHLOROthiazide 12.5 MG TABLET PO (10:11)
[2023-03-22] MEDS: Metoprolol Succinate ER 50 MG TAB.ER.24H PO (10:12)
[2023-03-22] MEDS: Famotidine 20 MG TABLET PO (10:12)
[2023-03-22] MEDS: Levothyroxine Sodium 25 MCG TABLET PO (10:12)
[2023-03-22] MEDS: Magnesium Oxide 400 MG TABLET 800 MG PO ×2 (10:12→16:09)
[2023-03-22] MEDS: polyethylene glycoL 3350 17 GM POWD.PACK PO (10:14)
[2023-03-22] MEDS: traZODone HCL 25 MG HALFTAB PO ×2 (10:20→14:01)
[2023-03-22 11:25] LABS: Glucose, Whole Blood 231 mg/dL (60-115)
[2023-03-22] MEDS: Insulin Lispro 100 UNIT/ML 3 ML VIAL SUBCUT ×2 (11:28→16:24)
[2023-03-22] MEDS: lamoTRIgine 25 MG TABLET PO (11:29)
[2023-03-22] MEDS: Enoxaparin Sodium 40 MG/0.4 ML SYRINGE SUBCUT (11:29)
--- NOTE | 2023-03-22 11:52 | PM.EVENT ---
Event Note Date of Service: 03/22/23 Event Note: Glucose levels improving with resumption of insulin. Continue insulin as prescribed, monitor POC glucose, and diabetic diet. CO2 has been slowly increasing. Oxygen needs to be titrated to maintain oximetry around 92% and sedating medications should be adjusted as appropriate so respiratory drive is not suppressed resulting in hypercapnia. Monitor mentation. Will follow POC's until stable. Time Spent With Patient Time: Total time managing care of this patient today ____ minutes.
[2023-03-22 13:44] VITALS: O2SAT 93
[2023-03-22 15:06] VITALS: BMI 50.4
[2023-03-22] MEDS: QUEtiapine Fumarate 100 MG TABLET PO (16:09)
[2023-03-22 16:24] LABS: Glucose, Whole Blood 290 mg/dL (60-115)
--- NOTE | 2023-03-22 19:15 | PC.NURSE ---
pt trying to get out of bed, combative toward staff, yelling and trying to hit and kick staff, Intramuscular Im given to left deltoid with good effect.
--- NOTE | 2023-03-22 19:53 | PC.NURSE ---
Pt trying to get out of bed, patient non-ambulatory, hitting and kicking staff. Redirected several times with no effect. Intramuscular Zyprexa 10mg to left deltoid given . hospitalist and family notified.
[2023-03-22 20:15] VITALS: BP 140/80; PULSE 86; RESP 16; TEMP 36.8; O2SAT 87
--- NOTE | 2023-03-22 20:38 | PM.EVENT ---
Event Note Date of Service: 03/22/23 Event Note: Patient was belligerent severely agitated somewhat earlier in the shift threatening not unable to respond to verbal redirection for patient safety and others required medication restraint given olanzapine and later lorazepam 2 mg IM Case had been discussed with nursing staff alternatives were reviewed Time Spent With Patient Time: Total time managing care of this patient today ____ minutes.
[2023-03-22 20:44] VITALS: BP 142/72; PULSE 76; RESP 16; O2SAT 92
[2023-03-22 20:45] VITALS: BP 160/90; PULSE 82; RESP 16; O2SAT 92
[2023-03-22] MEDS: LORazepam 2 MG/ML VIAL 1 MG IM (21:28)
[2023-03-22] MEDS: OLANZapine ODT 10 MG TAB.RAPDIS TRANSLINGU (21:31)
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
[2023-03-23] MEDS: traZODone HCL 50 MG TABLET PO ×2 (01:18→20:20)
--- NOTE | 2023-03-23 01:20 | PC.NURSE ---
2030- pt has been examined and evaluated by hospitalist dr hatfield. pts daughter dorcas called and notified of chemical restraints. questions answered and concerns addressed.
[2023-03-23 06:00] VITALS: BP 133/59; PULSE 70; RESP 20; TEMP 36.3; O2SAT 93
[2023-03-23 08:23] LABS: Glucose, Whole Blood 219 mg/dL (60-115)
[2023-03-23] MEDS: Metoprolol Succinate ER 50 MG TAB.ER.24H PO (10:26)
[2023-03-23] MEDS: Omeprazole 40 MG CAPSULE.DR PO (10:26)
[2023-03-23] MEDS: hydroCHLOROthiazide 12.5 MG TABLET PO (10:27)
[2023-03-23] MEDS: Magnesium Oxide 400 MG TABLET 800 MG PO (10:27)
[2023-03-23] MEDS: Famotidine 20 MG TABLET PO (10:27)
[2023-03-23] MEDS: Insulin Glargine,Hum.rec.anlog 100 UNIT/ML 10 ML VIAL 10 UNIT SUBCUT (10:28)
[2023-03-23] MEDS: Insulin Lispro 100 UNIT/ML 3 ML VIAL SUBCUT ×3 (10:28→20:20)
[2023-03-23] MEDS: Levothyroxine Sodium 25 MCG TABLET PO (10:28)
[2023-03-23] MEDS: predniSONE 10 MG TABLET PO (10:28)
[2023-03-23] MEDS: Multivitamin TABLET 1 TAB PO (10:28)
[2023-03-23] MEDS: polyethylene glycoL 3350 17 GM POWD.PACK PO (10:28)
[2023-03-23] MEDS: Enoxaparin Sodium 40 MG/0.4 ML SYRINGE SUBCUT (12:55)
[2023-03-23] MEDS: lamoTRIgine 25 MG TABLET PO (12:55)
[2023-03-23] MEDS: Loratadine 10 MG TABLET PO (12:55)
[2023-03-23] MEDS: Acetaminophen 325 MG TABLET 650 MG PO (12:56)
--- NOTE | 2023-03-23 13:59 | HO.PSYCHPN ---
Subjective Subjective Date of Service: 03/23/23 Reason For Visit: Dementia w behavioral disturbance, psychosis Subjective Notes: Section 7 and Section 8 Interim History: The nursing staff reported the patient had been grossly disorganized and agitated and in the afternoon she did not receive the IM but later at 19:00 she needed to have Zyprexa that he did not work later on the tried Ativan IM that helped very little. The occupational therapist reported the daughter took care of her for years but in the recent months she had deconditioning more. PT try to evaluate but she was always sedated and sleeping. Apparently, according to her daughter, the patient was admitted for nearly 2 hears after 50 years ago. The patient remains grossly confused, delusional so we are increasing the trazodone up to 50 mg p.o. t.i.d. and increase Seroquel 100 mg p.o. t.i.d. to target psychosis. Mental Status Exam Mental Status Exam Patient Appearance: Disheveled and Unkempt Patient Orientation: Person and Situation Level of Consciousness: Awake and Disoriented Patient Behavior: Guarded and Suspicious Mood Description: Withdrawn Affect Description: Constricted Patient Cognition Impaired: Yes Ability to Follow Directions: Poor Speech Pattern: Clear Hallucinations: Auditory Delusions: Paranoid Ideation and Ideas of Reference Thought Process: Illogical and Evasive Thought Content: positive for [place] and positive for Thought Blocking Judgement: Poor Diagnostics Vital Signs (24Hr): Vital Signs - 24 hr 03/22/23 20:15 03/22/23 20:45 03/22/23 20:44 Temperature 98.2 F Pulse Rate 86 82 76 Respiratory Rate 16 16 16 Blood Pressure 140/80 H 160/90 H 142/72 H Pulse Oximetry 87 L 92 92 Oxygen Delivery Method Room Air Nasal Cannula Nasal Cannula Oxygen Flow Rate 2 2 03/23/23 06:00 Temperature 97.3 F Pulse Rate 70 Respiratory Rate 20 Blood Pressure 133/59 L Pulse Oximetry 93 Oxygen Delivery Method Nasal Cannula Oxygen Flow Rate 2 BMI result Body Mass Index 50.4 Labs 03/22/23 07:50 Labs: Laboratory Results - last 48 hr 03/21/23 03/21/23 03/21/23 16:27 16:56 20:53 Sodium Potassium Chloride Carbon Dioxide Anion Gap BUN Creatinine Estim Creat Clear Calc Estimated GFR POC Glucose 356 H* 222 H Fasting Glucose Estimat Average Glucose 194 Hemoglobin A1c % 8.4 Calcium Total Bilirubin AST ALT Alkaline Phosphatase Total Protein Albumin Triglycerides Cholesterol LDL Cholesterol, Calc HDL Cholesterol 03/22/23 03/22/23 03/22/23 07:47 07:50 11:21 Sodium 142 Potassium 4.4 Chloride 96 Carbon Dioxide 40 H* Anion Gap 10 L BUN 18 H Creatinine 0.84 Estim Creat Clear Calc TNP Estimated GFR > 60 POC Glucose 221 H 231 H Fasting Glucose 218 H Estimat Average Glucose Hemoglobin A1c % Calcium 9.7 Total Bilirubin 0.6 AST 17 ALT 25 Alkaline Phosphatase 70 Total Protein 6.1 L Albumin 3.3 L Triglycerides 113 Cholesterol 144 LDL Cholesterol, Calc 72 HDL Cholesterol 50 03/22/23 03/23/23 16:17 08:14 Sodium Potassium Chloride Carbon Dioxide Anion Gap BUN Creatinine Estim Creat Clear Calc Estimated GFR POC Glucose 290 H 219 H Fasting Glucose Estimat Average Glucose Hemoglobin A1c % Calcium Total Bilirubin AST ALT Alkaline Phosphatase Total Protein Albumin Triglycerides Cholesterol LDL Cholesterol, Calc HDL Cholesterol Medications Medications Current Medications Acetaminophen (Acetaminophen 325 Mg Tablet) 650 mg PO Q6H PRN PRN Reason: fever Last Admin: 03/23/23 12:56 Dose: 650 mg Al Hydroxide/Mg Hydroxide (Magnesium Hydrox/Alum Hydrox 30 Ml Oral.Susp) 30 ml PO Q6H PRN PRN Reason: Heartburn/Nausea Albuterol Sulfate (Albuterol Sulfate 90 Mcg 8 Gm Inhaler) 2 puff INHALE RQ6H PRN PRN Reason: wheeze Donepezil HCl (Donepezil Hcl 10 Mg Tablet) 10 mg PO BEDTIME [facility] Last Admin: 03/22/23 21:29 Dose: Not Given Enoxaparin Sodium (Enoxaparin Sodium 40 Mg/0.4 Ml Syringe) 40 mg SUBCUT Q24H [facility] Last Admin: 03/23/23 12:55 Dose: 40 mg Ergocalciferol (Ergocalciferol (Vitamin D2) 1,250 Mcg Capsule) 1,250 mcg PO Sa@1000 [facility] Famotidine (Famotidine 20 Mg Tablet) 20 mg PO BID [facility] Last Admin: 03/23/23 10:27 Dose: 20 mg Fluticasone Propionate (Fluticasone Propionate 100 Mcg Blst.W.Dev) 2 puff INHALE RBID [facility] Last Admin: 03/23/23 10:36 Dose: Not Given Guaifenesin (Guaifenesin 100 Mg/5 Ml Liquid) 5 ml PO Q4H PRN PRN Reason: Cough Hydrochlorothiazide (Hydrochlorothiazide 12.5 Mg Tablet) 12.5 mg PO DAILY [facility]; Protocol Last Admin: 03/23/23 10:27 Dose: 12.5 mg Insulin Glargine (Insulin Glargine,Hum.Rec.Anlog 100 Unit/Ml 10 Ml Vial) 10 unit SUBCUT DAILY [facility] Last Admin: 03/23/23 10:28 Dose: 10 unit Insulin Glargine (Insulin Glargine,Hum.Rec.Anlog 100 Unit/Ml 10 Ml Vial) 5 unit SUBCUT BEDTIME [facility] Last Admin: 03/22/23 23:13 Dose: Not Given Insulin Human Lispro (Insulin Lispro 100 Unit/Ml 3 Ml Vial) 0 unit SUBCUT QIDACHS [facility]; Protocol Last Admin: 03/23/23 12:48 Dose: Not Given Lamotrigine (Lamotrigine 25 Mg Tablet) 25 mg PO DAILY@1200 [facility] Last Admin: 03/23/23 12:55 Dose: 25 mg Levothyroxine Sodium (Levothyroxine Sodium 25 Mcg Tablet) 25 mcg PO DAILY@0630 [facility] Last Admin: 03/23/23 10:28 Dose: 25 mcg Loratadine (Loratadine 10 Mg Tablet) 10 mg PO DAILY PRN PRN Reason: allergy symptoms Last Admin: 03/23/23 12:55 Dose: 10 mg Magnesium Hydroxide (Milk Of Magnesia 30 Ml Oral.Susp) 30 ml PO DAILY PRN PRN Reason: Constipation Magnesium Oxide (Magnesium Oxide 400 Mg Tablet) 800 mg PO BIDPC [facility] Last Admin: 03/23/23 10:27 Dose: 800 mg Metoprolol Succinate (Metoprolol Succinate Er 50 Mg Tab.Er.24h) 50 mg PO DAILY [facility]; Protocol Last Admin: 03/23/23 10:26 Dose: 50 mg Multivitamins/Vitamin C (Multivitamin Tablet) 1 tab PO DAILY [facility] Last Admin: 03/23/23 10:28 Dose: 1 tab Olanzapine (Olanzapine Odt 10 Mg Tab.Rapdis) 10 mg TRANSLINGU BID PRN PRN Reason: agitation Last Admin: 03/22/23 21:31 Dose: 10 mg Omeprazole (Omeprazole 40 Mg Capsule.Dr) 40 mg PO DAILY@0630 [facility] Last Admin: 03/23/23 10:26 Dose: 40 mg Pharmacy Consult (Consult Rx Perform Med Rec) 1 each MISCELLANE ONCE PRN PRN Reason: Consult order Polyethylene Glycol (Polyethylene Glycol 3350 17 Gm Powd.Pack) 17 gm PO DAILY [facility] Last Admin: 03/23/23 10:28 Dose: 17 gm Prednisone (Prednisone 10 Mg Tablet) 10 mg PO DAILY [facility] Last Admin: 03/23/23 10:28 Dose: 10 mg Quetiapine Fumarate (Quetiapine Fumarate 100 Mg Tablet) 100 mg PO TID [facility] Senna/Docusate Sodium (Sennosides/Docusate Sodium Tablet) 1 tab PO BEDTIME [facility] Last Admin: 03/22/23 21:31 Dose: Not Given Trazodone HCl (Trazodone Hcl 50 Mg Tablet) 50 mg PO BEDTIME MRX1 PRN PRN Reason: Insomnia Last Admin: 03/23/23 01:18 Dose: 50 mg Trazodone HCl (Trazodone Hcl 50 Mg Tablet) 50 mg PO TID [facility] Allergies Allergies Allergy/AdvReac Type Severity Reaction Status Date / Time No Known Allergies Allergy Verified 03/02/23 16:08 Assessment & Plan Assessment & Plan (1) Dementia with behavioral disturbance: Status: Acute Code(s): F03.918 - Unspecified dementia, unspecified severity, with other behavioral disturbance Plan 82 yo female, recovering from acute on chronic hypoxemix hypercarbic respiratory failure due to acute severe persistent asthma exacerbation, with dementia with behavioral disturbance, question of delirium. Plan: Continue current regime Collateral contact with family Monitor behavior and adjust medications as needed Increase Trazodone up to 50 mg po tid. On 03/23 Increase Seroquel up to 100 mg po tid. On 03/23. Reason for continued inpatient stay Substantial Risk for: inability to function, rapid decompensation and med/psych decompensation Time Spent With Patient Time: Total time managing care of this patient today __20__ minutes.
--- NOTE | 2023-03-23 16:09 | PC.NURSE ---
Addendum entered by Iris Velazquez RN 03/23/23 16:45: new orders for am Original Note: Pt dif to arouse Needing vigorous arousal. VSS O2 remains on at 2L Medications held and Dr Tejeda notified
[2023-03-23 16:22] LABS: Glucose, Whole Blood 318 mg/dL (60-115)
[2023-03-23 18:00] VITALS: BP 124/60; PULSE 68; RESP 16; TEMP 36.3; O2SAT 92
[2023-03-23 20:17] LABS: Glucose, Whole Blood 265 mg/dL (60-115)
[2023-03-23] MEDS: QUEtiapine Fumarate 100 MG TABLET PO (20:20)
[2023-03-23] MEDS: Insulin Glargine,Hum.rec.anlog 100 UNIT/ML 10 ML VIAL SUBCUT (20:23)
[2023-03-24] VITALS (8 sets, daily range): BP systolic 134–152; BP diastolic 56–68; PULSE 67–80; RESP 20; TEMP 36.1–36.6; O2SAT 93–99
[2023-03-24] MEDS: Levothyroxine Sodium 25 MCG TABLET PO (05:48)
[2023-03-24] MEDS: Omeprazole 40 MG CAPSULE.DR PO (05:49)
[2023-03-24 07:49] LABS: Glucose, Whole Blood 146 mg/dL (60-115)
[2023-03-24] MEDS: Insulin Glargine,Hum.rec.anlog 100 UNIT/ML 10 ML VIAL 15 UNIT SUBCUT (08:14)
[2023-03-24] MEDS: Multivitamin TABLET 1 TAB PO (08:15)
[2023-03-24] MEDS: QUEtiapine Fumarate 100 MG TABLET PO ×3 (08:15→20:23)
[2023-03-24] MEDS: Metoprolol Succinate ER 50 MG TAB.ER.24H PO (08:16)
[2023-03-24] MEDS: Famotidine 20 MG TABLET PO ×2 (08:17→20:23)
[2023-03-24] MEDS: Magnesium Oxide 400 MG TABLET 800 MG PO ×2 (08:17→18:23)
[2023-03-24] MEDS: traZODone HCL 50 MG TABLET PO ×4 (08:17→22:37)
[2023-03-24] MEDS: predniSONE 10 MG TABLET PO (08:18)
[2023-03-24] MEDS: hydroCHLOROthiazide 12.5 MG TABLET PO (08:18)
[2023-03-24] MEDS: polyethylene glycoL 3350 17 GM POWD.PACK PO (08:18)
[2023-03-24 08:33] LABS: MANUAL DIFF FLAG NO
[2023-03-24 08:35] LABS: Basophils Percent Auto 0.4 % (0-2); Eosinophils Absolute Auto 0.2 X10*3/uL (0.0-0.4); Eosinophils Percent Auto 2.3 % (0-4); Hematocrit 40.8 % (37.0-47.0); Hemoglobin 12.3 g/dl (12.0-16.0); Imm Gran Abs Auto 0.02 X10*3/uL (0.00-0.03); Imm Gran Pct Auto 0.3 % (0.0-0.4); Lymphocytes Absolute Auto 2.3 X10*3/uL (1.2-4.9); Mean Corpuscular HGB Conc 30.1 g/dl (31.0-35.0); Mean Corpuscular Hemoglobin 26.2 pg (27.0-33.0); Mean Platelet Volume 10.9 fL (9.4-12.3); Monocytes Absolute Auto 0.4 X10*3/uL (0.1-1.2); Monocytes Percent Auto 5.5 % (2-11); Neutrophils Absolute Auto 4.4 x10*3/uL (2.0-8.3); Neutrophils Percent Auto 59.5 % (45-73); Platelet Count 246 X10*3/uL (160-400); Red Blood Count 4.69 X10*6/uL (4.20-5.50); Red Cell Distribution Width 15.5 % (11.0-16.0); White Blood Count 7.3 X10*3/uL (4.8-10.8)
[2023-03-24] MEDS: Fluticasone Propionate 100 MCG BLST.W.DEV 2 PUFF INHALE ×2 (08:38→20:25)
[2023-03-24 09:02] LABS: Alanine Aminotransferase 22 U/L (0-31); Albumin Level 3.4 g/dL (3.5-5.0); Alkaline Phosphatase 70 U/L (39-117); Anion Gap 10 (12-20); Aspartate Amino Transferase 15 U/L (5-31); Bilirubin Direct 0.2 mg/dL (0.0-0.5); Bilirubin Total 0.6 mg/dL (0.0-1.0); Blood Urea Nitrogen 14 mg/dL (9-16); Calcium 9.8 mg/dL (8.4-10.2); Carbon Dioxide 40 mmol/L (22-29); Chloride 98 mmol/L (96-108); Cholesterol 172 mg/dL; Estimated Glomerular Filt Rate > 60; Glucose Random 133 mg/dL (60-115); HDL Cholesterol 56 mg/dL; LDL Cholesterol Calculated 91 mg/dl; Potassium 4.1 mmol/L (3.3-5.1); Sodium 144 mmol/L (135-145); Total Protein 6.5 g/dL (6.5-8.0); Triglycerides 127 mg/dL
[2023-03-24 09:13] LABS: Thyroid Stimulating Hormone 1.15 uIU/mL (0.32-4.0)
--- NOTE | 2023-03-24 09:43 | MHC.CLN ---
NUTRITION DIET=DIABETIC 2200 KCALS-APPROPRIATE. POC ELEVATED. A1C ON 03/21=8.4 SHOWING FAIR/POOR BLOOD GLUCOSE CONTROL. MEDS INCLUDE LANTUS AND HUMALOG. EPISODES OF SEVERE AGITATION NOTED. SKIN WITH SMALL OPEN AREA ON LEFT BUTTOCK. NO NEW NUTRITION INTERVENTIONS AT THIS TIME. RD TO FOLLOW WEEKLY.
--- NOTE | 2023-03-24 09:44 | PC.NURSE ---
Critical lab for pt: Carbon Dioxide of [address] Chris notified.
[2023-03-24 11:22] LABS: Glucose, Whole Blood 388 mg/dL (60-115)
[2023-03-24] MEDS: Insulin Lispro 100 UNIT/ML 3 ML VIAL SUBCUT ×6 (11:33→20:25)
[2023-03-24] MEDS: Enoxaparin Sodium 40 MG/0.4 ML SYRINGE SUBCUT (11:34)
[2023-03-24] MEDS: lamoTRIgine 25 MG TABLET PO (11:35)
--- NOTE | 2023-03-24 14:27 | HO.PSYCHPN ---
Subjective Subjective Date of Service: 03/24/23 Reason For Visit: Dementia w behavioral disturbance, psychosis Subjective Notes: Conditional Voluntary Interim History: The nursing staff reported the patient slept well at night she has been extremely confused, removal her oxygen at times. On interview the patient was still on delirium, we recently increased medications on will wait for the clearance of the delirium. Mental Status Exam Mental Status Exam Patient Appearance: Appropriate Patient Orientation: Person and Situation Level of Consciousness: Awake and Appropriate Patient Behavior: Guarded and Passive Mood Description: Withdrawn Affect Description: Constricted Patient Cognition Impaired: Yes Ability to Follow Directions: Fair Speech Pattern: Clear Hallucinations: Auditory Delusions: Paranoid Ideation Thought Process: Incoherent, Illogical and Distracted Thought Content: positive for Disoriented Judgement: Poor Diagnostics Vital Signs (24Hr): Vital Signs - 24 hr 03/23/23 18:00 03/24/23 11:43 Temperature 97.3 F 97.9 F Pulse Rate 68 67 Respiratory Rate 16 20 Blood Pressure 124/60 134/56 L Pulse Oximetry 92 93 Oxygen Delivery Method Nasal Cannula Room Air Oxygen Flow Rate 2 BMI result Body Mass Index 50.4 Labs 03/24/23 08:18 03/24/23 08:18 Labs: Laboratory Results - last 48 hr 03/22/23 03/23/23 03/23/23 16:17 08:14 16:18 WBC RBC Hgb Hct MCV MCH MCHC RDW Plt Count MPV Immature Gran % (Auto) Neut % (Auto) Lymph % (Auto) [place] % (Auto) Eos % (Auto) Baso % (Auto) Lymph # (Auto) [place] # (Auto) Eos # (Auto) Baso # (Auto) Abs Immat Gran (auto) Absolute Neuts (auto) Absolute Nucleated RBC Nucleated RBC % (auto) Sodium Potassium Chloride Carbon Dioxide Anion Gap BUN Creatinine Estim Creat Clear Calc Estimated GFR POC Glucose 290 H 219 H 318 H Random Glucose Calcium Total Bilirubin Direct Bilirubin AST ALT Alkaline Phosphatase Total Protein Albumin Triglycerides Cholesterol LDL Cholesterol, Calc HDL Cholesterol TSH 03/23/23 03/24/23 03/24/23 20:06 07:41 08:18 WBC 7.3 RBC 4.69 Hgb 12.3 Hct 40.8 MCV 87.0 MCH 26.2 L MCHC 30.1 L RDW 15.5 Plt Count 246 MPV 10.9 Immature Gran % (Auto) 0.3 Neut % (Auto) 59.5 Lymph % (Auto) 32.0 [place] % (Auto) 5.5 Eos % (Auto) 2.3 Baso % (Auto) 0.4 Lymph # (Auto) 2.3 [place] # (Auto) 0.4 Eos # (Auto) 0.2 Baso # (Auto) 0.0 Abs Immat Gran (auto) 0.02 Absolute Neuts (auto) 4.4 Absolute Nucleated RBC 0.000 Nucleated RBC % (auto) 0.0 Sodium Potassium Chloride Carbon Dioxide Anion Gap BUN Creatinine Estim Creat Clear Calc Estimated GFR POC Glucose 265 H 146 H Random Glucose Calcium Total Bilirubin Direct Bilirubin AST ALT Alkaline Phosphatase Total Protein Albumin Triglycerides Cholesterol LDL Cholesterol, Calc HDL Cholesterol TSH 03/24/23 03/24/23 08:18 11:17 WBC RBC Hgb Hct MCV MCH MCHC RDW Plt Count MPV Immature Gran % (Auto) Neut % (Auto) Lymph % (Auto) [place] % (Auto) Eos % (Auto) Baso % (Auto) Lymph # (Auto) [place] # (Auto) Eos # (Auto) Baso # (Auto) Abs Immat Gran (auto) Absolute Neuts (auto) Absolute Nucleated RBC Nucleated RBC % (auto) Sodium 144 Potassium 4.1 Chloride 98 Carbon Dioxide 40 H* Anion Gap 10 L BUN 14 Creatinine 0.86 Estim Creat Clear Calc 53.0 Estimated GFR > 60 POC Glucose 388 H* Random Glucose 133 H Calcium 9.8 Total Bilirubin 0.6 Direct Bilirubin 0.2 AST 15 ALT 22 Alkaline Phosphatase 70 Total Protein 6.5 Albumin 3.4 L Triglycerides 127 Cholesterol 172 LDL Cholesterol, Calc 91 HDL Cholesterol 56 TSH 1.15 Medications Medications Current Medications Acetaminophen (Acetaminophen 325 Mg Tablet) 650 mg PO Q6H PRN PRN Reason: fever Last Admin: 03/23/23 12:56 Dose: 650 mg Al Hydroxide/Mg Hydroxide (Magnesium Hydrox/Alum Hydrox 30 Ml Oral.Susp) 30 ml PO Q6H PRN PRN Reason: Heartburn/Nausea Albuterol Sulfate (Albuterol Sulfate 90 Mcg 8 Gm Inhaler) 2 puff INHALE RQ6H PRN PRN Reason: wheeze Donepezil HCl (Donepezil Hcl 10 Mg Tablet) 10 mg PO BEDTIME [facility] Last Admin: 03/23/23 20:27 Dose: Not Given Enoxaparin Sodium (Enoxaparin Sodium 40 Mg/0.4 Ml Syringe) 40 mg SUBCUT Q24H [facility] Last Admin: 03/24/23 11:34 Dose: 40 mg Ergocalciferol (Ergocalciferol (Vitamin D2) 1,250 Mcg Capsule) 1,250 mcg PO Sa@1000 [facility] Famotidine (Famotidine 20 Mg Tablet) 20 mg PO BID [facility] Last Admin: 03/24/23 08:17 Dose: 20 mg Fluticasone Propionate (Fluticasone Propionate 100 Mcg Blst.W.Dev) 2 puff INHALE RBID [facility] Last Admin: 03/24/23 08:38 Dose: 2 puff Guaifenesin (Guaifenesin 100 Mg/5 Ml Liquid) 5 ml PO Q4H PRN PRN Reason: Cough Hydrochlorothiazide (Hydrochlorothiazide 12.5 Mg Tablet) 12.5 mg PO DAILY [facility]; Protocol Last Admin: 03/24/23 08:18 Dose: 12.5 mg Insulin Glargine (Insulin Glargine,Hum.Rec.Anlog 100 Unit/Ml 10 Ml Vial) 15 unit SUBCUT DAILY [facility] Last Admin: 03/24/23 08:14 Dose: 15 unit Insulin Glargine (Insulin Glargine,Hum.Rec.Anlog 100 Unit/Ml 10 Ml Vial) 10 unit SUBCUT BEDTIME [facility] Last Admin: 03/24/23 00:22 Dose: Not Given Insulin Human Lispro (Insulin Lispro 100 Unit/Ml 3 Ml Vial) 0 unit SUBCUT QIDACHS [facility]; Protocol Last Admin: 03/24/23 11:33 Dose: 10 unit Insulin Human Lispro (Insulin Lispro 100 Unit/Ml 3 Ml Vial) 5 unit SUBCUT QIDACHS [facility] Lamotrigine (Lamotrigine 25 Mg Tablet) 25 mg PO DAILY@1200 [facility] Last Admin: 03/24/23 11:35 Dose: 25 mg Levothyroxine Sodium (Levothyroxine Sodium 25 Mcg Tablet) 25 mcg PO DAILY@0630 [facility] Last Admin: 03/24/23 05:48 Dose: 25 mcg Loratadine (Loratadine 10 Mg Tablet) 10 mg PO DAILY PRN PRN Reason: allergy symptoms Last Admin: 03/23/23 12:55 Dose: 10 mg Magnesium Hydroxide (Milk Of Magnesia 30 Ml Oral.Susp) 30 ml PO DAILY PRN PRN Reason: Constipation Magnesium Oxide (Magnesium Oxide 400 Mg Tablet) 800 mg PO BIDPC [facility] Last Admin: 03/24/23 08:17 Dose: 800 mg Metoprolol Succinate (Metoprolol Succinate Er 50 Mg Tab.Er.24h) 50 mg PO DAILY [facility]; Protocol Last Admin: 03/24/23 08:16 Dose: 50 mg Multivitamins/Vitamin C (Multivitamin Tablet) 1 tab PO DAILY [facility] Last Admin: 03/24/23 08:15 Dose: 1 tab Olanzapine (Olanzapine Odt 10 Mg Tab.Rapdis) 10 mg TRANSLINGU BID PRN PRN Reason: agitation Last Admin: 03/22/23 21:31 Dose: 10 mg Omeprazole (Omeprazole 40 Mg Capsule.Dr) 40 mg PO DAILY@0630 [facility] Last Admin: 03/24/23 05:49 Dose: 40 mg Pharmacy Consult (Consult Rx Perform Med Rec) 1 each MISCELLANE ONCE PRN PRN Reason: Consult order Polyethylene Glycol (Polyethylene Glycol 3350 17 Gm Powd.Pack) 17 gm PO DAILY [facility] Last Admin: 03/24/23 08:18 Dose: 17 gm Prednisone (Prednisone 10 Mg Tablet) 10 mg PO DAILY [facility] Last Admin: 03/24/23 08:18 Dose: 10 mg Quetiapine Fumarate (Quetiapine Fumarate 100 Mg Tablet) 100 mg PO TID [facility] Last Admin: 03/24/23 08:15 Dose: 100 mg Senna/Docusate Sodium (Sennosides/Docusate Sodium Tablet) 1 tab PO BEDTIME [facility] Last Admin: 03/23/23 20:27 Dose: Not Given Trazodone HCl (Trazodone Hcl 50 Mg Tablet) 50 mg PO BEDTIME MRX1 PRN PRN Reason: Insomnia Last Admin: 03/23/23 01:18 Dose: 50 mg Trazodone HCl (Trazodone Hcl 50 Mg Tablet) 50 mg PO TID [facility] Last Admin: 03/24/23 08:17 Dose: 50 mg Allergies Allergies Allergy/AdvReac Type Severity Reaction Status Date / Time No Known Allergies Allergy Verified 03/02/23 16:08 Assessment & Plan Assessment & Plan (1) Dementia with behavioral disturbance: Status: Acute Code(s): F03.918 - Unspecified dementia, unspecified severity, with other behavioral disturbance Plan 82 yo female, recovering from acute on chronic hypoxemix hypercarbic respiratory failure due to acute severe persistent asthma exacerbation, with dementia with behavioral disturbance, question of delirium. Plan: Continue current regime Collateral contact with family Monitor behavior and adjust medications as needed Increase Trazodone up to 50 mg po tid. On 03/23 Increase Seroquel up to 100 mg po tid. On 03/23. Reason for continued inpatient stay Substantial Risk for: inability to function, rapid decompensation and med/psych decompensation Time Spent With Patient Time: Total time managing care of this patient today _20___ minutes.
[2023-03-24] MEDS: Acetaminophen 325 MG TABLET 650 MG PO (15:48)
[2023-03-24 16:28] LABS: Glucose, Whole Blood 300 mg/dL (60-115)
--- NOTE | 2023-03-24 18:34 | PM.EVENT ---
Event Note Date of Service: 03/24/23 Event Note: Glucose levels remain uncontrolled at this time. Lantus increased to 15 units daily and 10 units at bedtime. Continue 5 units standing humalog and sliding scale. Will also add metformin XL 1000mg daily to help with insulin resistance. Continue checking POC and follow diabetic diet. Will continue following. Time Spent With Patient Time: Total time managing care of this patient today ____ minutes.
--- NOTE | 2023-03-24 18:44 | PC.NURSE ---
Pt removing O2 frequently without s/sx respiratory distress. O2 sat 94 % rm air when checked after removing o2 at 1710. O2 sat 94 % rm air at 1730, 1745, 1800. O2 sat 96% rm air 1815. O2 sat 99% rm air 1830. Right great toe utilized to obtain O2 sat. 1834 Omaira Collins, hospitalist updated on respiratory status. Prn O2 parameters requested. New orders received. Omaira Collins replied via [employer] stating she ordered a titration and ambulatory O2 sats which respiratory could assist with and a prn order. Kerry Boucher APRN notified.
[2023-03-24] MEDS: metFORMIN HCl ER 500 MG TAB.ER.24H 1000 MG PO ×2 (18:58→20:23)
--- NOTE | 2023-03-24 19:18 | PC.NURSE ---
Johnny Collins, hospitalist, notified of pt's improvement from recliner to wheelchair and ability to navigate wheelchair. Had transferred to recliner this am with sangeetha lift and ability to stand pivot is improving slowly. Not ambulating more than a few steps at present time. Ambulating O2 sat discontinued. No s/sx respiratory distress without O2 at present time.
[2023-03-24 20:15] LABS: Glucose, Whole Blood 318 mg/dL (60-115)
[2023-03-24] MEDS: Donepezil HCl 10 MG TABLET PO (20:23)
[2023-03-24] MEDS: Insulin Glargine,Hum.rec.anlog 100 UNIT/ML 10 ML VIAL 10 UNIT SUBCUT (20:24)
[2023-03-24] MEDS: OLANZapine ODT 10 MG TAB.RAPDIS TRANSLINGU (22:37)
[2023-03-25] MEDS: Omeprazole 40 MG CAPSULE.DR PO (05:41)
[2023-03-25] MEDS: Levothyroxine Sodium 25 MCG TABLET PO (05:41)
[2023-03-25 08:01] LABS: Glucose, Whole Blood 100 mg/dL (60-115)
[2023-03-25 08:45] VITALS: BP 139/63; PULSE 76; RESP 20; TEMP 36.5; O2SAT 99
[2023-03-25] MEDS: Insulin Glargine,Hum.rec.anlog 100 UNIT/ML 10 ML VIAL 15 UNIT SUBCUT (09:00)
[2023-03-25] MEDS: Insulin Lispro 100 UNIT/ML 3 ML VIAL SUBCUT ×7 (09:00→22:17)
[2023-03-25] MEDS: Fluticasone Propionate 100 MCG BLST.W.DEV 2 PUFF INHALE (09:01)
[2023-03-25] MEDS: Famotidine 20 MG TABLET PO ×2 (09:02→20:34)
[2023-03-25] MEDS: traZODone HCL 50 MG TABLET PO ×3 (09:03→20:34)
[2023-03-25] MEDS: Magnesium Oxide 400 MG TABLET 800 MG PO ×2 (09:03→16:31)
[2023-03-25] MEDS: QUEtiapine Fumarate 100 MG TABLET PO ×3 (09:04→20:34)
[2023-03-25] MEDS: Metoprolol Succinate ER 50 MG TAB.ER.24H PO (09:04)
[2023-03-25] MEDS: predniSONE 10 MG TABLET PO (09:05)
[2023-03-25] MEDS: Multivitamin TABLET 1 TAB PO (09:05)
[2023-03-25] MEDS: polyethylene glycoL 3350 17 GM POWD.PACK PO (09:05)
[2023-03-25] MEDS: hydroCHLOROthiazide 12.5 MG TABLET PO (09:06)
[2023-03-25] MEDS: Acetaminophen 325 MG TABLET 650 MG PO (11:16)
[2023-03-25 11:23] LABS: Glucose, Whole Blood 182 mg/dL (60-115)
[2023-03-25] MEDS: Enoxaparin Sodium 40 MG/0.4 ML SYRINGE SUBCUT (11:33)
[2023-03-25] MEDS: lamoTRIgine 25 MG TABLET PO (11:35)
--- NOTE | 2023-03-25 11:43 | P.PNPSI_ITS ---
Subjective Subjective Date of Service: 03/25/23 Reason For Visit: Dementia w behavioral disturbance, psychosis Subjective Notes: Conditional Voluntary Interim History: Nursing staff reported the patient has been less labile, pleasantly confused, her saturation dropped to 85%. The occupational therapy reported that in assessment her balance and she can to 2 or 3 steps with a lot of help. We will ask for a PT evaluation. On interview the patient is pleasantly confused, less irritable. Mental Status Exam Mental Status Exam Patient Appearance: Well Grooomed and Appropriate Patient Orientation: Person and Situation Level of Consciousness: Awake and Appropriate Patient Behavior: Guarded and Suspicious Mood Description: Withdrawn Affect Description: Labile Patient Cognition Impaired: Yes Ability to Follow Directions: Good Speech Pattern: Clear Hallucinations: None Delusions: Paranoid Ideation Thought Process: Distracted and Linear Thought Content: positive for [place] Judgement: Fair Diagnostics Vital Signs (24Hr): Vital Signs - 24 hr 03/24/23 17:10 03/24/23 17:30 03/24/23 17:45 Temperature Pulse Rate Respiratory Rate Blood Pressure Pulse Oximetry 94 94 94 Oxygen Delivery Method Room Air Room Air Room Air 03/24/23 18:00 03/24/23 18:15 03/24/23 18:30 Temperature Pulse Rate Respiratory Rate Blood Pressure Pulse Oximetry 94 96 99 Oxygen Delivery Method Room Air Room Air Room Air 03/24/23 19:30 03/25/23 08:45 Temperature 96.9 F 97.7 F Pulse Rate 80 76 Respiratory Rate 20 20 Blood Pressure 152/68 H 139/63 Pulse Oximetry 94 99 Oxygen Delivery Method Room Air Room Air BMI result Body Mass Index 50.4 Labs 03/24/23 08:18 03/24/23 08:18 Labs: Laboratory Results - last 48 hr 03/23/23 03/23/23 03/24/23 16:18 20:06 07:41 WBC RBC Hgb Hct MCV MCH MCHC RDW Plt Count MPV Immature Gran % (Auto) Neut % (Auto) Lymph % (Auto) [place] % (Auto) Eos % (Auto) Baso % (Auto) Lymph # (Auto) [place] # (Auto) Eos # (Auto) Baso # (Auto) Abs Immat Gran (auto) Absolute Neuts (auto) Absolute Nucleated RBC Nucleated RBC % (auto) Sodium Potassium Chloride Carbon Dioxide Anion Gap BUN Creatinine Estim Creat Clear Calc Estimated GFR POC Glucose 318 H 265 H 146 H Random Glucose Calcium Total Bilirubin Direct Bilirubin AST ALT Alkaline Phosphatase Total Protein Albumin Triglycerides Cholesterol LDL Cholesterol, Calc HDL Cholesterol TSH 03/24/23 03/24/23 03/24/23 08:18 08:18 11:17 WBC 7.3 RBC 4.69 Hgb 12.3 Hct 40.8 MCV 87.0 MCH 26.2 L MCHC 30.1 L RDW 15.5 Plt Count 246 MPV 10.9 Immature Gran % (Auto) 0.3 Neut % (Auto) 59.5 Lymph % (Auto) 32.0 [place] % (Auto) 5.5 Eos % (Auto) 2.3 Baso % (Auto) 0.4 Lymph # (Auto) 2.3 [place] # (Auto) 0.4 Eos # (Auto) 0.2 Baso # (Auto) 0.0 Abs Immat Gran (auto) 0.02 Absolute Neuts (auto) 4.4 Absolute Nucleated RBC 0.000 Nucleated RBC % (auto) 0.0 Sodium 144 Potassium 4.1 Chloride 98 Carbon Dioxide 40 H* Anion Gap 10 L BUN 14 Creatinine 0.86 Estim Creat Clear Calc 53.0 Estimated GFR > 60 POC Glucose 388 H* Random Glucose 133 H Calcium 9.8 Total Bilirubin 0.6 Direct Bilirubin 0.2 AST 15 ALT 22 Alkaline Phosphatase 70 Total Protein 6.5 Albumin 3.4 L Triglycerides 127 Cholesterol 172 LDL Cholesterol, Calc 91 HDL Cholesterol 56 TSH 1.15 03/24/23 03/24/23 03/25/23 16:19 20:10 07:53 WBC RBC Hgb Hct MCV MCH MCHC RDW Plt Count MPV Immature Gran % (Auto) Neut % (Auto) Lymph % (Auto) [place] % (Auto) Eos % (Auto) Baso % (Auto) Lymph # (Auto) [place] # (Auto) Eos # (Auto) Baso # (Auto) Abs Immat Gran (auto) Absolute Neuts (auto) Absolute Nucleated RBC Nucleated RBC % (auto) Sodium Potassium Chloride Carbon Dioxide Anion Gap BUN Creatinine Estim Creat Clear Calc Estimated GFR POC Glucose 300 H 318 H 100 Random Glucose Calcium Total Bilirubin Direct Bilirubin AST ALT Alkaline Phosphatase Total Protein Albumin Triglycerides Cholesterol LDL Cholesterol, Calc HDL Cholesterol TSH 03/25/23 11:14 WBC RBC Hgb Hct MCV MCH MCHC RDW Plt Count MPV Immature Gran % (Auto) Neut % (Auto) Lymph % (Auto) [place] % (Auto) Eos % (Auto) Baso % (Auto) Lymph # (Auto) [place] # (Auto) Eos # (Auto) Baso # (Auto) Abs Immat Gran (auto) Absolute Neuts (auto) Absolute Nucleated RBC Nucleated RBC % (auto) Sodium Potassium Chloride Carbon Dioxide Anion Gap BUN Creatinine Estim Creat Clear Calc Estimated GFR POC Glucose 182 H Random Glucose Calcium Total Bilirubin Direct Bilirubin AST ALT Alkaline Phosphatase Total Protein Albumin Triglycerides Cholesterol LDL Cholesterol, Calc HDL Cholesterol TSH Medications Medications Current Medications Acetaminophen (Acetaminophen 325 Mg Tablet) 650 mg PO Q6H PRN PRN Reason: fever Last Admin: 03/25/23 11:16 Dose: 650 mg Al Hydroxide/Mg Hydroxide (Magnesium Hydrox/Alum Hydrox 30 Ml Oral.Susp) 30 ml PO Q6H PRN PRN Reason: Heartburn/Nausea Albuterol Sulfate (Albuterol Sulfate 90 Mcg 8 Gm Inhaler) 2 puff INHALE RQ6H PRN PRN Reason: wheeze Donepezil HCl (Donepezil Hcl 10 Mg Tablet) 10 mg PO BEDTIME [facility] Last Admin: 03/24/23 20:23 Dose: 10 mg Enoxaparin Sodium (Enoxaparin Sodium 40 Mg/0.4 Ml Syringe) 40 mg SUBCUT Q24H [facility] Last Admin: 03/25/23 11:33 Dose: 40 mg Ergocalciferol (Ergocalciferol (Vitamin D2) 1,250 Mcg Capsule) 1,250 mcg PO Sa@1000 [facility] Famotidine (Famotidine 20 Mg Tablet) 20 mg PO BID [facility] Last Admin: 03/25/23 09:02 Dose: 20 mg Fluticasone Propionate (Fluticasone Propionate 100 Mcg Blst.W.Dev) 2 puff INHALE RBID [facility] Last Admin: 03/25/23 09:01 Dose: 2 puff Guaifenesin (Guaifenesin 100 Mg/5 Ml Liquid) 5 ml PO Q4H PRN PRN Reason: Cough Hydrochlorothiazide (Hydrochlorothiazide 12.5 Mg Tablet) 12.5 mg PO DAILY [facility]; Protocol Last Admin: 03/25/23 09:06 Dose: 12.5 mg Insulin Glargine (Insulin Glargine,Hum.Rec.Anlog 100 Unit/Ml 10 Ml Vial) 15 unit SUBCUT DAILY [facility] Last Admin: 03/25/23 09:00 Dose: 15 unit Insulin Glargine (Insulin Glargine,Hum.Rec.Anlog 100 Unit/Ml 10 Ml Vial) 10 unit SUBCUT BEDTIME [facility] Last Admin: 03/24/23 20:24 Dose: 10 unit Insulin Human Lispro (Insulin Lispro 100 Unit/Ml 3 Ml Vial) 0 unit SUBCUT QIDACHS [facility]; Protocol Last Admin: 03/25/23 11:32 Dose: 2 unit Insulin Human Lispro (Insulin Lispro 100 Unit/Ml 3 Ml Vial) 5 unit SUBCUT QIDACHS [facility] Last Admin: 03/25/23 11:32 Dose: 5 unit Lamotrigine (Lamotrigine 25 Mg Tablet) 25 mg PO DAILY@1200 [facility] Last Admin: 03/25/23 11:35 Dose: 25 mg Levothyroxine Sodium (Levothyroxine Sodium 25 Mcg Tablet) 25 mcg PO DAILY@0630 [facility] Last Admin: 03/25/23 05:41 Dose: 25 mcg Loratadine (Loratadine 10 Mg Tablet) 10 mg PO DAILY PRN PRN Reason: allergy symptoms Last Admin: 03/23/23 12:55 Dose: 10 mg Magnesium Hydroxide (Milk Of Magnesia 30 Ml Oral.Susp) 30 ml PO DAILY PRN PRN Reason: Constipation Magnesium Oxide (Magnesium Oxide 400 Mg Tablet) 800 mg PO BIDPC [facility] Last Admin: 03/25/23 09:03 Dose: 800 mg Metformin HCl (Metformin Hcl Er 500 Mg Tab.Er.24h) 1,000 mg PO BEDTIME [facility] Last Admin: 03/24/23 20:23 Dose: 1,000 mg Metoprolol Succinate (Metoprolol Succinate Er 50 Mg Tab.Er.24h) 50 mg PO DAILY [facility]; Protocol Last Admin: 03/25/23 09:04 Dose: 50 mg Multivitamins/Vitamin C (Multivitamin Tablet) 1 tab PO DAILY [facility] Last Admin: 03/25/23 09:05 Dose: 1 tab Olanzapine (Olanzapine Odt 10 Mg Tab.Rapdis) 10 mg TRANSLINGU BID PRN PRN Reason: agitation Last Admin: 03/24/23 22:37 Dose: 10 mg Omeprazole (Omeprazole 40 Mg Capsule.Dr) 40 mg PO DAILY@0630 [facility] Last Admin: 03/25/23 05:41 Dose: 40 mg Pharmacy Consult (Consult Rx Perform Med Rec) 1 each MISCELLANE ONCE PRN PRN Reason: Consult order Polyethylene Glycol (Polyethylene Glycol 3350 17 Gm Powd.Pack) 17 gm PO DAILY [facility] Last Admin: 03/25/23 09:05 Dose: 17 gm Prednisone (Prednisone 10 Mg Tablet) 10 mg PO DAILY [facility] Last Admin: 03/25/23 09:05 Dose: 10 mg Quetiapine Fumarate (Quetiapine Fumarate 100 Mg Tablet) 100 mg PO TID [facility] Last Admin: 03/25/23 09:04 Dose: 100 mg Senna/Docusate Sodium (Sennosides/Docusate Sodium Tablet) 1 tab PO BEDTIME [facility] Last Admin: 03/24/23 20:36 Dose: Not Given Trazodone HCl (Trazodone Hcl 50 Mg Tablet) 50 mg PO BEDTIME MRX1 PRN PRN Reason: Insomnia Last Admin: 03/24/23 22:37 Dose: 50 mg Trazodone HCl (Trazodone Hcl 50 Mg Tablet) 50 mg PO TID [facility] Last Admin: 03/25/23 09:03 Dose: 50 mg Allergies Allergies Allergy/AdvReac Type Severity Reaction Status Date / Time No Known Allergies Allergy Verified 03/02/23 16:08 Assessment & Plan Assessment & Plan (1) Dementia with behavioral disturbance: Status: Acute Code(s): F03.918 - Unspecified dementia, unspecified severity, with other behavioral disturbance Plan 82 yo female, recovering from acute on chronic hypoxemix hypercarbic respiratory failure due to acute severe persistent asthma exacerbation, with dementia with behavioral disturbance, question of delirium. Plan: Continue current regime Collateral contact with family Monitor behavior and adjust medications as needed Increase Trazodone up to 50 mg po tid. On 03/23 Increase Seroquel up to 100 mg po tid. On 03/23. Reason for continued inpatient stay Substantial Risk for: inability to function, rapid decompensation and med/psych decompensation Time Spent With Patient Time: Total time managing care of this patient today __20__ minutes.
[2023-03-25 14:45] VITALS: BMI 49.8
[2023-03-25 16:24] LABS: Glucose, Whole Blood 278 mg/dL (60-115)
[2023-03-25 19:45] VITALS: BP 131/69; PULSE 75; RESP 16; TEMP 35.8; O2SAT 96
[2023-03-25] MEDS: metFORMIN HCl ER 500 MG TAB.ER.24H 1000 MG PO (20:34)
[2023-03-25] MEDS: Sennosides/Docusate Sodium TABLET 1 TAB PO (20:34)
[2023-03-25] MEDS: Donepezil HCl 10 MG TABLET PO (20:34)
[2023-03-25] MEDS: Capsaicin 0.025% Cream 60 GM TUBE 1 APPL TOPICAL (20:35)
[2023-03-25 21:55] LABS: Glucose, Whole Blood 272 mg/dL (60-115)
[2023-03-25] MEDS: Insulin Glargine,Hum.rec.anlog 100 UNIT/ML 10 ML VIAL 10 UNIT SUBCUT (22:17)
[2023-03-26 06:00] VITALS: BP 106/56; PULSE 78; RESP 16; TEMP 36.6; O2SAT 95
[2023-03-26] MEDS: Omeprazole 40 MG CAPSULE.DR PO (06:27)
[2023-03-26] MEDS: Levothyroxine Sodium 25 MCG TABLET PO (06:27)
[2023-03-26 07:46] LABS: Glucose, Whole Blood 124 mg/dL (60-115)
[2023-03-26 08:00] VITALS: BMI 50.3
[2023-03-26] MEDS: QUEtiapine Fumarate 100 MG TABLET PO ×3 (09:45→23:53)
[2023-03-26] MEDS: Magnesium Oxide 400 MG TABLET 800 MG PO (09:45)
[2023-03-26] MEDS: Multivitamin TABLET 1 TAB PO (09:45)
[2023-03-26] MEDS: Famotidine 20 MG TABLET PO (09:45)
[2023-03-26] MEDS: hydroCHLOROthiazide 12.5 MG TABLET PO (09:45)
[2023-03-26] MEDS: traZODone HCL 50 MG TABLET PO ×3 (09:45→23:54)
[2023-03-26] MEDS: predniSONE 10 MG TABLET PO (09:45)
[2023-03-26] MEDS: Metoprolol Succinate ER 50 MG TAB.ER.24H PO (09:46)
[2023-03-26] MEDS: Insulin Glargine,Hum.rec.anlog 100 UNIT/ML 10 ML VIAL 15 UNIT SUBCUT (09:46)
[2023-03-26 09:47] VITALS: BP 114/60
[2023-03-26] MEDS: Fluticasone Propionate 100 MCG BLST.W.DEV 2 PUFF INHALE (09:51)
[2023-03-26] MEDS: polyethylene glycoL 3350 17 GM POWD.PACK PO (09:59)
[2023-03-26 11:35] LABS: Glucose, Whole Blood 158 mg/dL (60-115)
[2023-03-26] MEDS: Insulin Lispro 100 UNIT/ML 3 ML VIAL SUBCUT ×2 (11:46→11:47)
[2023-03-26] MEDS: lamoTRIgine 25 MG TABLET PO (11:57)
[2023-03-26] MEDS: Enoxaparin Sodium 40 MG/0.4 ML SYRINGE SUBCUT (11:57)
--- NOTE | 2023-03-26 14:05 | HO.PSYCHPN ---
Subjective Subjective Date of Service: 03/26/23 Reason For Visit: Dementia w behavioral disturbance, psychosis Subjective Notes: Conditional Voluntary Interim History: The nursing staff reported the patient had been sleeping mostly in the morning. Physical therapy has seen her and she can walk with some assistance. The staff has noticed that his oxygen saturation has not changed and his fasting blood sugar has been normalizing. On interview the patient is pleasantly confused, still sedated at times. Mental Status Exam Mental Status Exam Patient Appearance: Appropriate Patient Orientation: Person and Situation Level of Consciousness: Awake and Appropriate Patient Behavior: Guarded and Passive Mood Description: Withdrawn Affect Description: Calm Patient Cognition Impaired: Yes Ability to Follow Directions: Good Speech Pattern: Clear and Appropriate Hallucinations: None Delusions: Paranoid Ideation Thought Process: Distracted Thought Content: positive for Circumstantial Judgement: Fair Diagnostics Vital Signs (24Hr): Vital Signs - 24 hr 03/25/23 19:45 03/26/23 06:00 03/26/23 09:47 Temperature 96.4 F L 97.8 F Pulse Rate 75 78 Respiratory Rate 16 16 Blood Pressure 131/69 106/56 L 114/60 Pulse Oximetry 96 95 Oxygen Delivery Method Room Air Room Air BMI result Body Mass Index 50.3 Labs 03/24/23 08:18 03/24/23 08:18 Labs: Laboratory Results - last 48 hr 03/24/23 03/24/23 03/25/23 16:19 20:10 07:53 POC Glucose 300 H 318 H 100 03/25/23 03/25/23 03/25/23 11:14 16:17 21:51 POC Glucose 182 H 278 H 272 H 03/26/23 03/26/23 07:41 11:28 POC Glucose 124 H 158 H Medications Medications Current Medications Acetaminophen (Acetaminophen 325 Mg Tablet) 650 mg PO Q6H PRN PRN Reason: fever Last Admin: 03/25/23 11:16 Dose: 650 mg Al Hydroxide/Mg Hydroxide (Magnesium Hydrox/Alum Hydrox 30 Ml Oral.Susp) 30 ml PO Q6H PRN PRN Reason: Heartburn/Nausea Albuterol Sulfate (Albuterol Sulfate 90 Mcg 8 Gm Inhaler) 2 puff INHALE RQ6H PRN PRN Reason: wheeze Capsaicin (Capsaicin 0.025% Cream 60 Gm Tube) 1 appl TOPICAL DAILY PRN; Protocol PRN Reason: Pain, Moderate(Pain Scale 4-6) Last Admin: 03/25/23 20:35 Dose: 1 appl Donepezil HCl (Donepezil Hcl 10 Mg Tablet) 10 mg PO BEDTIME REPLACED BY [facility] Last Admin: 03/25/23 20:34 Dose: 10 mg Enoxaparin Sodium (Enoxaparin Sodium 40 Mg/0.4 Ml Syringe) 40 mg SUBCUT Q24H REPLACED BY [facility] Last Admin: 03/26/23 11:57 Dose: 40 mg Ergocalciferol (Ergocalciferol (Vitamin D2) 1,250 Mcg Capsule) 1,250 mcg PO Sa@1000 REPLACED BY [facility] Famotidine (Famotidine 20 Mg Tablet) 20 mg PO BID REPLACED BY [facility] Last Admin: 03/26/23 09:45 Dose: 20 mg Fluticasone Propionate (Fluticasone Propionate 100 Mcg Blst.W.Dev) 2 puff INHALE RBID REPLACED BY [facility] Last Admin: 03/26/23 09:51 Dose: 2 puff Guaifenesin (Guaifenesin 100 Mg/5 Ml Liquid) 5 ml PO Q4H PRN PRN Reason: Cough Hydrochlorothiazide (Hydrochlorothiazide 12.5 Mg Tablet) 12.5 mg PO DAILY REPLACED BY [facility]; Protocol Last Admin: 03/26/23 09:45 Dose: 12.5 mg Insulin Glargine (Insulin Glargine,Hum.Rec.Anlog 100 Unit/Ml 10 Ml Vial) 15 unit SUBCUT DAILY REPLACED BY [facility] Last Admin: 03/26/23 09:46 Dose: 15 unit Insulin Glargine (Insulin Glargine,Hum.Rec.Anlog 100 Unit/Ml 10 Ml Vial) 10 unit SUBCUT BEDTIME REPLACED BY [facility] Last Admin: 03/25/23 22:17 Dose: 10 unit Insulin Human Lispro (Insulin Lispro 100 Unit/Ml 3 Ml Vial) 0 unit SUBCUT QIDACHS REPLACED BY [facility]; Protocol Last Admin: 03/26/23 11:47 Dose: 2 unit Insulin Human Lispro (Insulin Lispro 100 Unit/Ml 3 Ml Vial) 5 unit SUBCUT QIDACHS REPLACED BY [facility] Last Admin: 03/26/23 11:46 Dose: 5 unit Lamotrigine (Lamotrigine 25 Mg Tablet) 25 mg PO DAILY@1200 REPLACED BY [facility] Last Admin: 03/26/23 11:57 Dose: 25 mg Levothyroxine Sodium (Levothyroxine Sodium 25 Mcg Tablet) 25 mcg PO DAILY@0630 REPLACED BY [facility] Last Admin: 03/26/23 06:27 Dose: 25 mcg Loratadine (Loratadine 10 Mg Tablet) 10 mg PO DAILY PRN PRN Reason: allergy symptoms Last Admin: 03/23/23 12:55 Dose: 10 mg Magnesium Hydroxide (Milk Of Magnesia 30 Ml Oral.Susp) 30 ml PO DAILY PRN PRN Reason: Constipation Magnesium Oxide (Magnesium Oxide 400 Mg Tablet) 800 mg PO BIDPC REPLACED BY [facility] Last Admin: 03/26/23 09:45 Dose: 800 mg Metformin HCl (Metformin Hcl Er 500 Mg Tab.Er.24h) 1,000 mg PO BEDTIME REPLACED BY [facility] Last Admin: 03/25/23 20:34 Dose: 1,000 mg Metoprolol Succinate (Metoprolol Succinate Er 50 Mg Tab.Er.24h) 50 mg PO DAILY REPLACED BY [facility]; Protocol Last Admin: 03/26/23 09:46 Dose: 50 mg Multivitamins/Vitamin C (Multivitamin Tablet) 1 tab PO DAILY REPLACED BY [facility] Last Admin: 03/26/23 09:45 Dose: 1 tab Olanzapine (Olanzapine Odt 10 Mg Tab.Rapdis) 10 mg TRANSLINGU BID PRN PRN Reason: agitation Last Admin: 03/24/23 22:37 Dose: 10 mg Omeprazole (Omeprazole 40 Mg Capsule.Dr) 40 mg PO DAILY@629 REPLACED BY [facility] Last Admin: 03/26/23 06:27 Dose: 40 mg Pharmacy Consult (Consult Rx Perform Med Rec) 1 each MISCELLANE ONCE PRN PRN Reason: Consult order Polyethylene Glycol (Polyethylene Glycol 3350 17 Gm Powd.Pack) 17 gm PO DAILY REPLACED BY [facility] Last Admin: 03/26/23 09:59 Dose: 17 gm Prednisone (Prednisone 10 Mg Tablet) 10 mg PO DAILY REPLACED BY [facility] Last Admin: 03/26/23 09:45 Dose: 10 mg Quetiapine Fumarate (Quetiapine Fumarate 100 Mg Tablet) 100 mg PO TID REPLACED BY [facility] Last Admin: 03/26/23 14:01 Dose: 100 mg Senna/Docusate Sodium (Sennosides/Docusate Sodium Tablet) 1 tab PO BEDTIME REPLACED BY [facility] Last Admin: 03/25/23 20:34 Dose: 1 tab Trazodone HCl (Trazodone Hcl 50 Mg Tablet) 50 mg PO BEDTIME MRX1 PRN PRN Reason: Insomnia Last Admin: 03/24/23 22:37 Dose: 50 mg Trazodone HCl (Trazodone Hcl 50 Mg Tablet) 50 mg PO TID [facility] Last Admin: 03/26/23 14:01 Dose: 50 mg Allergies Allergies Allergy/AdvReac Type Severity Reaction Status Date / Time No Known Allergies Allergy Verified 03/02/23 16:08 Assessment & Plan Assessment & Plan (1) Dementia with behavioral disturbance: Status: Acute Code(s): F03.918 - Unspecified dementia, unspecified severity, with other behavioral disturbance Plan 82 yo female, recovering from acute on chronic hypoxemix hypercarbic respiratory failure due to acute severe persistent asthma exacerbation, with dementia with behavioral disturbance, question of delirium. Plan: Continue current regime Collateral contact with family Monitor behavior and adjust medications as needed Increase Trazodone up to 50 mg po tid. On 03/23 Increase Seroquel up to 100 mg po tid. On 03/23. Reason for continued inpatient stay Substantial Risk for: inability to function, rapid decompensation and med/psych decompensation Time Spent With Patient Time: Total time managing care of this patient today __20__ minutes.
[2023-03-26 16:20] VITALS: BP 145/65; PULSE 77; TEMP 36.1
[2023-03-26 16:26] LABS: Glucose, Whole Blood 252 mg/dL (60-115)
[2023-03-26 21:07] LABS: Glucose, Whole Blood 266 mg/dL (60-115)
[2023-03-26] MEDS: OLANZapine ODT 10 MG TAB.RAPDIS TRANSLINGU (23:54)
--- NOTE | 2023-03-27 11:02 | HO.PSYCHPN ---
Subjective Subjective Date of Service: 03/27/23 Reason For Visit: Dementia w behavioral disturbance, psychosis Interim History: The nursing staff reported the patient is irritable at times. She is avoiding meeting with psychiatry team today because she is concerned she will be kept here for a long time. She hasn't been consistently compliant with her medications. She has periods where she is a more alert and less confused. On interview the patient is pleasantly confused today. Review of Systems Reports behavioral changes and Reports confusion Psychiatric: Reports behavioral changes, Reports confusion, Reports difficulty concentrating, Reports irritability, Reports mood swings, Reports paranoia, Reports visual hallucinations and Reports hallucinations Mental Status Exam Mental Status Exam Narrative: In today's visit she is alert, minimally interactive even with the help of an small animal caretaker. Minimal speech. No eye contact. Affect is constricted. Could not assess any symptoms of psychosis. She does appear to be confused. No dangerous behaviors. Intermittent aggressive behaviors as was observed last night. Judgment is impaired. Cognitively impaired. Patient Appearance: Appropriate Patient Orientation: Person and Situation Level of Consciousness: Awake and Appropriate Patient Behavior: Guarded and Passive Mood Description: Withdrawn Affect Description: Calm Patient Cognition Impaired: Yes Ability to Follow Directions: Good Speech Pattern: Clear and Appropriate Memory Description: Remote Impaired, Immediate Impaired, Episodic Impaired, Recent Impaired, Working Impaired and Semantic Impaired Diagnostics Vital Signs (24Hr): Vital Signs - 24 hr 03/26/23 16:20 Temperature 97.0 F Pulse Rate 77 Blood Pressure 145/65 H BMI result Body Mass Index 50.3 Labs 03/24/23 08:18 03/24/23 08:18 Labs: Laboratory Results - last 48 hr 03/25/23 03/25/23 03/25/23 11:14 16:17 21:51 POC Glucose 182 H 278 H 272 H 03/26/23 03/26/23 03/26/23 07:41 11:28 16:23 POC Glucose 124 H 158 H 252 H 03/26/23 20:56 POC Glucose 266 H Medications Medications Current Medications Acetaminophen (Acetaminophen 325 Mg Tablet) 650 mg PO Q6H PRN PRN Reason: fever Last Admin: 03/25/23 11:16 Dose: 650 mg Al Hydroxide/Mg Hydroxide (Magnesium Hydrox/Alum Hydrox 30 Ml Oral.Susp) 30 ml PO Q6H PRN PRN Reason: Heartburn/Nausea Albuterol Sulfate (Albuterol Sulfate 90 Mcg 8 Gm Inhaler) 2 puff INHALE RQ6H PRN PRN Reason: wheeze Capsaicin (Capsaicin 0.025% Cream 60 Gm Tube) 1 appl TOPICAL DAILY PRN; Protocol PRN Reason: Pain, Moderate(Pain Scale 4-6) Last Admin: 03/25/23 20:35 Dose: 1 appl Donepezil HCl (Donepezil Hcl 10 Mg Tablet) 10 mg PO BEDTIME REPLACED BY [facility] Last Admin: 03/26/23 23:08 Dose: Not Given Enoxaparin Sodium (Enoxaparin Sodium 40 Mg/0.4 Ml Syringe) 40 mg SUBCUT Q24H REPLACED BY [facility] Last Admin: 03/26/23 11:57 Dose: 40 mg Ergocalciferol (Ergocalciferol (Vitamin D2) 1,250 Mcg Capsule) 1,250 mcg PO Sa@1000 [facility] Famotidine (Famotidine 20 Mg Tablet) 20 mg PO BID REPLACED BY [facility] Last Admin: 03/26/23 23:08 Dose: Not Given Fluticasone Propionate (Fluticasone Propionate 100 Mcg Blst.W.Dev) 2 puff INHALE RBID REPLACED BY [facility] Last Admin: 03/27/23 10:58 Dose: Not Given Guaifenesin (Guaifenesin 100 Mg/5 Ml Liquid) 5 ml PO Q4H PRN PRN Reason: Cough Hydrochlorothiazide (Hydrochlorothiazide 12.5 Mg Tablet) 12.5 mg PO DAILY REPLACED BY [facility]; Protocol Last Admin: 03/26/23 09:45 Dose: 12.5 mg Insulin Glargine (Insulin Glargine,Hum.Rec.Anlog 100 Unit/Ml 10 Ml Vial) 15 unit SUBCUT DAILY REPLACED BY [facility] Last Admin: 03/26/23 09:46 Dose: 15 unit Insulin Glargine (Insulin Glargine,Hum.Rec.Anlog 100 Unit/Ml 10 Ml Vial) 10 unit SUBCUT BEDTIME REPLACED BY [facility] Last Admin: 03/26/23 23:08 Dose: Not Given Insulin Human Lispro (Insulin Lispro 100 Unit/Ml 3 Ml Vial) 0 unit SUBCUT QIDACHS REPLACED BY [facility]; Protocol Last Admin: 03/27/23 10:35 Dose: Not Given Insulin Human Lispro (Insulin Lispro 100 Unit/Ml 3 Ml Vial) 5 unit SUBCUT QIDACHS REPLACED BY [facility] Last Admin: 03/27/23 10:35 Dose: Not Given Lamotrigine (Lamotrigine 25 Mg Tablet) 25 mg PO DAILY@1200 REPLACED BY [facility] Last Admin: 03/26/23 11:57 Dose: 25 mg Levothyroxine Sodium (Levothyroxine Sodium 25 Mcg Tablet) 25 mcg PO DAILY@0630 REPLACED BY [facility] Last Admin: 03/27/23 06:37 Dose: Not Given Loratadine (Loratadine 10 Mg Tablet) 10 mg PO DAILY PRN PRN Reason: allergy symptoms Last Admin: 03/23/23 12:55 Dose: 10 mg Magnesium Hydroxide (Milk Of Magnesia 30 Ml Oral.Susp) 30 ml PO DAILY PRN PRN Reason: Constipation Magnesium Oxide (Magnesium Oxide 400 Mg Tablet) 800 mg PO BIDPC REPLACED BY [facility] Last Admin: 03/27/23 10:36 Dose: Not Given Metformin HCl (Metformin Hcl Er 500 Mg Tab.Er.24h) 1,000 mg PO BEDTIME REPLACED BY [facility] Last Admin: 03/26/23 23:17 Dose: Not Given Metoprolol Succinate (Metoprolol Succinate Er 50 Mg Tab.Er.24h) 50 mg PO DAILY REPLACED BY [facility]; Protocol Last Admin: 03/26/23 09:46 Dose: 50 mg Multivitamins/Vitamin C (Multivitamin Tablet) 1 tab PO DAILY REPLACED BY [facility] Last Admin: 03/27/23 10:36 Dose: Not Given Olanzapine (Olanzapine Odt 10 Mg Tab.Rapdis) 10 mg TRANSLINGU BID PRN PRN Reason: agitation Last Admin: 03/26/23 23:54 Dose: 10 mg Omeprazole (Omeprazole 40 Mg Capsule.Dr) 40 mg PO DAILY@0630 REPLACED BY [facility] Last Admin: 03/27/23 06:37 Dose: Not Given Pharmacy Consult (Consult Rx Perform Med Rec) 1 each MISCELLANE ONCE PRN PRN Reason: Consult order Polyethylene Glycol (Polyethylene Glycol 3350 17 Gm Powd.Pack) 17 gm PO DAILY REPLACED BY [facility] Last Admin: 03/26/23 09:59 Dose: 17 gm Prednisone (Prednisone 10 Mg Tablet) 10 mg PO DAILY REPLACED BY [facility] Last Admin: 03/26/23 09:45 Dose: 10 mg Quetiapine Fumarate (Quetiapine Fumarate 100 Mg Tablet) 100 mg PO TID REPLACED BY [facility] Last Admin: 03/26/23 23:55 Dose: Not Given Senna/Docusate Sodium (Sennosides/Docusate Sodium Tablet) 1 tab PO BEDTIME REPLACED BY [facility] Last Admin: 03/26/23 23:55 Dose: Not Given Trazodone HCl (Trazodone Hcl 50 Mg Tablet) 50 mg PO BEDTIME MRX1 PRN PRN Reason: Insomnia Last Admin: 03/24/23 22:37 Dose: 50 mg Trazodone HCl (Trazodone Hcl 50 Mg Tablet) 50 mg PO TID ANUJ Last Admin: 03/26/23 23:55 Dose: Not Given Allergies Allergies Allergy/AdvReac Type Severity Reaction Status Date / Time No Known Allergies Allergy Verified 03/02/23 16:08 Assessment & Plan Assessment & Plan (1) Dementia with behavioral disturbance: Status: Acute Code(s): F03.918 - Unspecified dementia, unspecified severity, with other behavioral disturbance Plan 82 yo female, recovering from acute on chronic hypoxemix hypercarbic respiratory failure due to acute severe persistent asthma exacerbation, with dementia with behavioral disturbance, question of delirium. Plan: Continue current regime Collateral contact with family Monitor behavior and adjust medications as needed Increase Trazodone up to 50 mg po tid. On 03/23 Increase Seroquel up to 100 mg po tid. On 03/23. 03/27: Continue current treatment plan. Reason for continued inpatient stay Substantial Risk for: inability to function, rapid decompensation and med/psych decompensation Time Spent With Patient Time: Total time managing care of this patient today ____ minutes.
--- NOTE | 2023-03-27 12:24 | PM.EVENT ---
Event Note Date of Service: 03/27/23 Event Note: Glucose levels reasonably controlled. Continue diabetic diet as tolerated and continue current medication regimen. Will sign off at this time. Please do not hesitate to reach out for any additional questions. Time Spent With Patient Time: Total time managing care of this patient today ____ minutes.
[2023-03-27] MEDS: QUEtiapine Fumarate 100 MG TABLET PO ×2 (14:41→20:48)
[2023-03-27] MEDS: OLANZapine ODT 10 MG TAB.RAPDIS TRANSLINGU (14:41)
[2023-03-27] MEDS: Famotidine 20 MG TABLET PO (14:41)
[2023-03-27] MEDS: Metoprolol Succinate ER 50 MG TAB.ER.24H PO (14:41)
[2023-03-27] MEDS: hydroCHLOROthiazide 12.5 MG TABLET PO (14:42)
[2023-03-27] MEDS: traZODone HCL 50 MG TABLET PO (14:42)
[2023-03-27] MEDS: predniSONE 10 MG TABLET PO (14:42)
[2023-03-27] MEDS: Insulin Glargine,Hum.rec.anlog 100 UNIT/ML 10 ML VIAL 15 UNIT SUBCUT (14:45)
[2023-03-27 15:25] LABS: Glucose, Whole Blood 283 mg/dL (60-115)
[2023-03-27 16:35] LABS: Glucose, Whole Blood 241 mg/dL (60-115)
[2023-03-27 19:30] VITALS: BP 160/69; PULSE 72; RESP 16; TEMP 36.3; O2SAT 91
[2023-03-27 20:34] LABS: Glucose, Whole Blood 339 mg/dL (60-115)
[2023-03-27] MEDS: Insulin Lispro 100 UNIT/ML 3 ML VIAL SUBCUT ×2 (20:44→21:20)
[2023-03-27] MEDS: Insulin Glargine,Hum.rec.anlog 100 UNIT/ML 10 ML VIAL 10 UNIT SUBCUT (20:46)
[2023-03-27] MEDS: Donepezil HCl 10 MG TABLET PO (20:48)
[2023-03-27] MEDS: metFORMIN HCl ER 500 MG TAB.ER.24H 1000 MG PO (20:48)
[2023-03-28] MEDS: Omeprazole 40 MG CAPSULE.DR PO (06:23)
[2023-03-28] MEDS: Levothyroxine Sodium 25 MCG TABLET PO (06:23)
--- NOTE | 2023-03-28 09:54 | HO.PSYCHPN ---
Subjective Subjective Date of Service: 03/28/23 Reason For Visit: Dementia w behavioral disturbance, psychosis Interim History: lying in bed scottish only. sitter translating. pt denies any problems, spontaneously talking about the past, per sitter. per staff, took meds last night but refused insulin today and refused morning meds yesterday. Mental Status Exam Mental Status Exam Patient Appearance: Appropriate Patient Orientation: Person Level of Consciousness: Awake and Appropriate Patient Behavior: Guarded and Passive Mood Description: Withdrawn Affect Description: Calm Patient Cognition Impaired: Yes Ability to Follow Directions: Good Speech Pattern: Clear and Appropriate Hallucinations: None Thought Process: Distracted Thought Content: positive for Tangential Judgement: Fair Diagnostics Vital Signs (24Hr): Vital Signs - 24 hr 03/27/23 19:30 Temperature 97.3 F Pulse Rate 72 Respiratory Rate 16 Blood Pressure 160/69 H Pulse Oximetry 91 L Oxygen Delivery Method Room Air BMI result Body Mass Index 50.3 Labs 03/24/23 08:18 03/24/23 08:18 Labs: Laboratory Results - last 48 hr 03/26/23 03/26/23 03/26/23 11:28 16:23 20:56 POC Glucose 158 H 252 H 266 H 03/27/23 03/27/23 03/27/23 15:21 16:27 20:23 POC Glucose 283 H 241 H 339 H Medications Medications Current Medications Acetaminophen (Acetaminophen 325 Mg Tablet) 650 mg PO Q6H PRN PRN Reason: fever Last Admin: 03/25/23 11:16 Dose: 650 mg Al Hydroxide/Mg Hydroxide (Magnesium Hydrox/Alum Hydrox 30 Ml Oral.Susp) 30 ml PO Q6H PRN PRN Reason: Heartburn/Nausea Albuterol Sulfate (Albuterol Sulfate 90 Mcg 8 Gm Inhaler) 2 puff INHALE RQ6H PRN PRN Reason: wheeze Capsaicin (Capsaicin 0.025% Cream 60 Gm Tube) 1 appl TOPICAL DAILY PRN; Protocol PRN Reason: Pain, Moderate(Pain Scale 4-6) Last Admin: 03/25/23 20:35 Dose: 1 appl Donepezil HCl (Donepezil Hcl 10 Mg Tablet) 10 mg PO BEDTIME ANUJ Last Admin: 03/27/23 20:48 Dose: 10 mg Enoxaparin Sodium (Enoxaparin Sodium 40 Mg/0.4 Ml Syringe) 40 mg SUBCUT Q24H [facility] Last Admin: 03/27/23 16:53 Dose: Not Given Ergocalciferol (Ergocalciferol (Vitamin D2) 1,250 Mcg Capsule) 1,250 mcg PO Sa@1000 [facility] Last Admin: 03/27/23 14:42 Dose: Not Given Famotidine (Famotidine 20 Mg Tablet) 20 mg PO BID [facility] Last Admin: 03/27/23 21:25 Dose: Not Given Fluticasone Propionate (Fluticasone Propionate 100 Mcg Blst.W.Dev) 2 puff INHALE RBID [facility] Last Admin: 03/27/23 21:24 Dose: Not Given Guaifenesin (Guaifenesin 100 Mg/5 Ml Liquid) 5 ml PO Q4H PRN PRN Reason: Cough Hydrochlorothiazide (Hydrochlorothiazide 12.5 Mg Tablet) 12.5 mg PO DAILY [facility]; Protocol Last Admin: 03/27/23 14:42 Dose: 12.5 mg Insulin Glargine (Insulin Glargine,Hum.Rec.Anlog 100 Unit/Ml 10 Ml Vial) 15 unit SUBCUT DAILY [facility] Last Admin: 03/27/23 14:45 Dose: 15 unit Insulin Glargine (Insulin Glargine,Hum.Rec.Anlog 100 Unit/Ml 10 Ml Vial) 10 unit SUBCUT BEDTIME [facility] Last Admin: 03/27/23 20:46 Dose: 10 unit Insulin Human Lispro (Insulin Lispro 100 Unit/Ml 3 Ml Vial) 0 unit SUBCUT QIDACHS [facility]; Protocol Last Admin: 03/27/23 20:44 Dose: 8 unit Insulin Human Lispro (Insulin Lispro 100 Unit/Ml 3 Ml Vial) 5 unit SUBCUT QIDACHS [facility] Last Admin: 03/27/23 21:20 Dose: 5 unit Lamotrigine (Lamotrigine 25 Mg Tablet) 25 mg PO DAILY@1200 [facility] Last Admin: 03/27/23 16:53 Dose: Not Given Levothyroxine Sodium (Levothyroxine Sodium 25 Mcg Tablet) 25 mcg PO DAILY@0630 [facility] Last Admin: 03/28/23 06:23 Dose: 25 mcg Loratadine (Loratadine 10 Mg Tablet) 10 mg PO DAILY PRN PRN Reason: allergy symptoms Last Admin: 03/23/23 12:55 Dose: 10 mg Magnesium Hydroxide (Milk Of Magnesia 30 Ml Oral.Susp) 30 ml PO DAILY PRN PRN Reason: Constipation Magnesium Oxide (Magnesium Oxide 400 Mg Tablet) 800 mg PO BIDPC [facility] Last Admin: 03/27/23 16:54 Dose: Not Given Metformin HCl (Metformin Hcl Er 500 Mg Tab.Er.24h) 1,000 mg PO BEDTIME [facility] Last Admin: 03/27/23 20:48 Dose: 1,000 mg Metoprolol Succinate (Metoprolol Succinate Er 50 Mg Tab.Er.24h) 50 mg PO DAILY [facility]; Protocol Last Admin: 03/27/23 14:41 Dose: 50 mg Multivitamins/Vitamin C (Multivitamin Tablet) 1 tab PO DAILY [facility] Last Admin: 03/27/23 10:36 Dose: Not Given Olanzapine (Olanzapine Odt 10 Mg Tab.Rapdis) 10 mg TRANSLINGU BID PRN PRN Reason: agitation Last Admin: 03/27/23 14:41 Dose: 10 mg Omeprazole (Omeprazole 40 Mg Capsule.Dr) 40 mg PO DAILY@0630 [facility] Last Admin: 03/28/23 06:23 Dose: 40 mg Pharmacy Consult (Consult Rx Perform Med Rec) 1 each MISCELLANE ONCE PRN PRN Reason: Consult order Polyethylene Glycol (Polyethylene Glycol 3350 17 Gm Powd.Pack) 17 gm PO DAILY [facility] Last Admin: 03/27/23 14:42 Dose: Not Given Prednisone (Prednisone 10 Mg Tablet) 10 mg PO DAILY [facility] Last Admin: 03/27/23 14:42 Dose: 10 mg Quetiapine Fumarate (Quetiapine Fumarate 100 Mg Tablet) 100 mg PO TID [facility] Last Admin: 03/27/23 20:48 Dose: 100 mg Senna/Docusate Sodium (Sennosides/Docusate Sodium Tablet) 1 tab PO BEDTIME [facility] Last Admin: 03/27/23 21:25 Dose: Not Given Trazodone HCl (Trazodone Hcl 50 Mg Tablet) 50 mg PO BEDTIME MRX1 PRN PRN Reason: Insomnia Last Admin: 03/24/23 22:37 Dose: 50 mg Trazodone HCl (Trazodone Hcl 50 Mg Tablet) 50 mg PO TID [facility] Last Admin: 03/27/23 21:25 Dose: Not Given Allergies Allergies Allergy/AdvReac Type Severity Reaction Status Date / Time No Known Allergies Allergy Verified 03/02/23 16:08 Assessment & Plan Assessment & Plan (1) Dementia with behavioral disturbance: Status: Acute Code(s): F03.918 - Unspecified dementia, unspecified severity, with other behavioral disturbance Plan 82 yo female, recovering from acute on chronic hypoxemic hypercarbic respiratory failure due to acute severe persistent asthma exacerbation, with dementia with behavioral disturbance, question of delirium. Plan: Continue current regime Collateral contact with family Monitor behavior and adjust medications as needed Increase Trazodone up to 50 mg po tid. On 03/23 Increase Seroquel up to 100 mg po tid. On 03/23. 03/27: Continue current treatment plan. 03/28: stable presentation. intermittently taking meds. continue current mgmt. Reason for continued inpatient stay Substantial Risk for: inability to function Time Spent With Patient Time: Total time managing care of this patient today ____ minutes.
[2023-03-28 11:23] LABS: Glucose, Whole Blood 105 mg/dL (60-115)
[2023-03-28 11:57] VITALS: BP 139/65; PULSE 77; RESP 16; TEMP 36.4; O2SAT 91
[2023-03-28] MEDS: Famotidine 20 MG TABLET PO (16:17)
[2023-03-28] MEDS: Insulin Glargine,Hum.rec.anlog 100 UNIT/ML 10 ML VIAL 15 UNIT SUBCUT (16:18)
[2023-03-28] MEDS: traZODone HCL 50 MG TABLET PO (16:18)
[2023-03-28] MEDS: Magnesium Oxide 400 MG TABLET 800 MG PO (16:18)
[2023-03-28] MEDS: Enoxaparin Sodium 40 MG/0.4 ML SYRINGE SUBCUT (16:37)
[2023-03-28] MEDS: QUEtiapine Fumarate 100 MG TABLET PO (16:38)
--- NOTE | 2023-03-29 05:45 | PC.NURSE ---
Patient refused vitals signs for 7p-7 shift.
[2023-03-29 07:58] LABS: Glucose, Whole Blood 110 mg/dL (60-115)
[2023-03-29 10:07] VITALS: BP 132/62; PULSE 86; RESP 16; TEMP 36.4; O2SAT 90
--- NOTE | 2023-03-29 10:12 | P.PNPSI_ITS ---
Subjective Subjective Date of Service: 03/29/23 Reason For Visit: Dementia w behavioral disturbance, psychosis Interim History: pleasant, calm, cooperative. seen with 1:1 staff, provided ethiopian translation. pt c/o RIVERA, amenable to take tylenol. no other complaints or requests. per juliano escamilla staff, upon being offered tylenol perhaps 10-15 minutes later, pt declined. pt appears confused with difficulty transitioning. refusing meds. last NOC c/o diarrhea and vomiting; per 1:1 with her, there was no diarrhea or vomiting. Mental Status Exam Mental Status Exam Patient Appearance: Appropriate Patient Orientation: Person Level of Consciousness: Awake and Appropriate Patient Behavior: Guarded and Passive Mood Description: Withdrawn Affect Description: Calm Patient Cognition Impaired: Yes Ability to Follow Directions: Good Speech Pattern: Clear and Appropriate Hallucinations: None Thought Process: Distracted Thought Content: positive for [place] Judgement: Fair Diagnostics Vital Signs (24Hr): Vital Signs - 24 hr 03/28/23 11:57 03/29/23 10:07 Temperature 97.5 F 97.5 F Pulse Rate 77 86 Respiratory Rate 16 16 Blood Pressure 139/65 132/62 Pulse Oximetry 91 L 90 L Oxygen Delivery Method Room Air Room Air BMI result Body Mass Index 50.3 Labs 03/24/23 08:18 03/24/23 08:18 Labs: Laboratory Results - last 48 hr 03/27/23 03/27/23 03/27/23 15:21 16:27 20:23 POC Glucose 283 H 241 H 339 H 03/28/23 03/29/23 11:17 07:54 POC Glucose 105 110 Medications Medications Current Medications Acetaminophen (Acetaminophen 325 Mg Tablet) 650 mg PO Q6H PRN PRN Reason: fever Last Admin: 03/25/23 11:16 Dose: 650 mg Al Hydroxide/Mg Hydroxide (Magnesium Hydrox/Alum Hydrox 30 Ml Oral.Susp) 30 ml PO Q6H PRN PRN Reason: Heartburn/Nausea Albuterol Sulfate (Albuterol Sulfate 90 Mcg 8 Gm Inhaler) 2 puff INHALE RQ6H PRN PRN Reason: wheeze Capsaicin (Capsaicin 0.025% Cream 60 Gm Tube) 1 appl TOPICAL DAILY PRN; Protocol PRN Reason: Pain, Moderate(Pain Scale 4-6) Last Admin: 03/25/23 20:35 Dose: 1 appl Donepezil HCl (Donepezil Hcl 10 Mg Tablet) 10 mg PO BEDTIME [facility] Last Admin: 03/28/23 21:51 Dose: Not Given Enoxaparin Sodium (Enoxaparin Sodium 40 Mg/0.4 Ml Syringe) 40 mg SUBCUT Q24H [facility] Last Admin: 03/28/23 16:37 Dose: 40 mg Ergocalciferol (Ergocalciferol (Vitamin D2) 1,250 Mcg Capsule) 1,250 mcg PO Sa@1000 [facility] Last Admin: 03/27/23 14:42 Dose: Not Given Famotidine (Famotidine 20 Mg Tablet) 20 mg PO BID [facility] Last Admin: 03/28/23 21:51 Dose: Not Given Fluticasone Propionate (Fluticasone Propionate 100 Mcg Blst.W.Dev) 2 puff INHALE RBID [facility] Last Admin: 03/28/23 21:50 Dose: Not Given Guaifenesin (Guaifenesin 100 Mg/5 Ml Liquid) 5 ml PO Q4H PRN PRN Reason: Cough Hydrochlorothiazide (Hydrochlorothiazide 12.5 Mg Tablet) 12.5 mg PO DAILY [facility]; Protocol Last Admin: 03/28/23 18:48 Dose: Not Given Insulin Glargine (Insulin Glargine,Hum.Rec.Anlog 100 Unit/Ml 10 Ml Vial) 15 unit SUBCUT DAILY [facility] Last Admin: 03/28/23 16:18 Dose: 15 unit Insulin Glargine (Insulin Glargine,Hum.Rec.Anlog 100 Unit/Ml 10 Ml Vial) 10 unit SUBCUT BEDTIME [facility] Last Admin: 03/28/23 21:51 Dose: Not Given Insulin Human Lispro (Insulin Lispro 100 Unit/Ml 3 Ml Vial) 0 unit SUBCUT QIDACHS [facility]; Protocol Last Admin: 03/29/23 10:09 Dose: Not Given Insulin Human Lispro (Insulin Lispro 100 Unit/Ml 3 Ml Vial) 5 unit SUBCUT QIDACHS [facility] Last Admin: 03/28/23 21:51 Dose: Not Given Lamotrigine (Lamotrigine 25 Mg Tablet) 25 mg PO DAILY@1200 [facility] Last Admin: 03/28/23 18:48 Dose: Not Given Levothyroxine Sodium (Levothyroxine Sodium 25 Mcg Tablet) 25 mcg PO DAILY@0630 [facility] Last Admin: 03/29/23 06:36 Dose: Not Given Loratadine (Loratadine 10 Mg Tablet) 10 mg PO DAILY PRN PRN Reason: allergy symptoms Last Admin: 03/23/23 12:55 Dose: 10 mg Magnesium Hydroxide (Milk Of Magnesia 30 Ml Oral.Susp) 30 ml PO DAILY PRN PRN Reason: Constipation Magnesium Oxide (Magnesium Oxide 400 Mg Tablet) 800 mg PO BIDPC [facility] Last Admin: 03/29/23 10:11 Dose: Not Given Metformin HCl (Metformin Hcl Er 500 Mg Tab.Er.24h) 1,000 mg PO BEDTIME [facility] Last Admin: 03/28/23 21:51 Dose: Not Given Metoprolol Succinate (Metoprolol Succinate Er 50 Mg Tab.Er.24h) 50 mg PO DAILY [facility]; Protocol Last Admin: 03/28/23 18:48 Dose: Not Given Multivitamins/Vitamin C (Multivitamin Tablet) 1 tab PO DAILY [facility] Last Admin: 03/29/23 10:10 Dose: Not Given Olanzapine (Olanzapine Odt 10 Mg Tab.Rapdis) 10 mg TRANSLINGU BID PRN PRN Reason: agitation Last Admin: 03/27/23 14:41 Dose: 10 mg Omeprazole (Omeprazole 40 Mg Capsule.Dr) 40 mg PO DAILY@0630 [facility] Last Admin: 03/29/23 06:36 Dose: Not Given Pharmacy Consult (Consult Rx Perform Med Rec) 1 each MISCELLANE ONCE PRN PRN Reason: Consult order Polyethylene Glycol (Polyethylene Glycol 3350 17 Gm Powd.Pack) 17 gm PO DAILY [facility] Last Admin: 03/29/23 10:10 Dose: Not Given Prednisone (Prednisone 10 Mg Tablet) 10 mg PO DAILY [facility] Last Admin: 03/28/23 18:48 Dose: Not Given Quetiapine Fumarate (Quetiapine Fumarate 100 Mg Tablet) 100 mg PO TID [facility] Last Admin: 03/28/23 21:51 Dose: Not Given Senna/Docusate Sodium (Sennosides/Docusate Sodium Tablet) 1 tab PO BEDTIME [facility] Last Admin: 03/28/23 21:52 Dose: Not Given Trazodone HCl (Trazodone Hcl 50 Mg Tablet) 50 mg PO BEDTIME [facility] PRN PRN Reason: Insomnia Last Admin: 03/24/23 22:37 Dose: 50 mg Trazodone HCl (Trazodone Hcl 50 Mg Tablet) 50 mg PO TID [facility] Last Admin: 03/28/23 21:52 Dose: Not Given Allergies Allergies Allergy/AdvReac Type Severity Reaction Status Date / Time No Known Allergies Allergy Verified 03/02/23 16:08 Assessment & Plan Assessment & Plan (1) Dementia with behavioral disturbance: Status: Acute Code(s): F03.918 - Unspecified dementia, unspecified severity, with other behavioral disturbance Plan 82 yo female, recovering from acute on chronic hypoxemic hypercarbic respiratory failure due to acute severe persistent asthma exacerbation, with dementia with behavioral disturbance, question of delirium. Plan: Continue current regime Collateral contact with family Monitor behavior and adjust medications as needed Increase Trazodone up to 50 mg po tid. On 03/23 Increase Seroquel up to 100 mg po tid. On 03/23. 03/27: Continue current treatment plan. 03/28: stable presentation. intermittently taking meds. continue current mgmt. 03/29: pleasant, asks for and then refuses meds. no change in presentation. continue current mgmt. Reason for continued inpatient stay Substantial Risk for: inability to function and rapid decompensation Time Spent With Patient Time: Total time managing care of this patient today ____ minutes.
[2023-03-29] MEDS: hydroCHLOROthiazide 12.5 MG TABLET PO (10:41)
[2023-03-29] MEDS: traZODone HCL 50 MG TABLET PO ×2 (10:41→16:20)
[2023-03-29] MEDS: Famotidine 20 MG TABLET PO ×2 (10:41→19:55)
[2023-03-29] MEDS: Metoprolol Succinate ER 50 MG TAB.ER.24H PO (10:41)
[2023-03-29] MEDS: QUEtiapine Fumarate 100 MG TABLET PO ×3 (10:41→19:58)
[2023-03-29] MEDS: predniSONE 10 MG TABLET PO (10:41)
[2023-03-29] MEDS: Insulin Glargine,Hum.rec.anlog 100 UNIT/ML 10 ML VIAL 15 UNIT SUBCUT (10:41)
[2023-03-29 11:37] LABS: Glucose, Whole Blood 166 mg/dL (60-115)
[2023-03-29] MEDS: Insulin Lispro 100 UNIT/ML 3 ML VIAL SUBCUT ×4 (11:50→20:29)
[2023-03-29] MEDS: lamoTRIgine 25 MG TABLET PO (11:50)
[2023-03-29] MEDS: Enoxaparin Sodium 40 MG/0.4 ML SYRINGE SUBCUT (11:59)
[2023-03-29 18:00] VITALS: BP 149/69; PULSE 75; RESP 16; TEMP 36.6; O2SAT 91
[2023-03-29] MEDS: metFORMIN HCl ER 500 MG TAB.ER.24H 1000 MG PO (19:55)
[2023-03-29] MEDS: Donepezil HCl 10 MG TABLET PO (19:56)
[2023-03-29] MEDS: Sennosides/Docusate Sodium TABLET 1 TAB PO (19:58)
[2023-03-29] MEDS: Insulin Glargine,Hum.rec.anlog 100 UNIT/ML 10 ML VIAL 10 UNIT SUBCUT (20:30)
[2023-03-29 21:03] LABS: Glucose, Whole Blood 276 mg/dL (60-115)
[2023-03-30] MEDS: Omeprazole 40 MG CAPSULE.DR PO (06:36)
[2023-03-30] MEDS: Levothyroxine Sodium 25 MCG TABLET PO (06:36)
[2023-03-30 07:59] LABS: Glucose, Whole Blood 91 mg/dL (60-115)
[2023-03-30 08:15] VITALS: BP 163/72; PULSE 94; RESP 18; TEMP 36.4; O2SAT 94
[2023-03-30] MEDS: polyethylene glycoL 3350 17 GM POWD.PACK PO (08:41)
[2023-03-30] MEDS: Famotidine 20 MG TABLET PO (08:42)
[2023-03-30] MEDS: predniSONE 10 MG TABLET PO (08:42)
[2023-03-30] MEDS: Magnesium Oxide 400 MG TABLET 800 MG PO ×2 (08:42→17:03)
[2023-03-30] MEDS: QUEtiapine Fumarate 100 MG TABLET PO (08:42)
[2023-03-30] MEDS: Multivitamin TABLET 1 TAB PO (08:42)
[2023-03-30] MEDS: Metoprolol Succinate ER 50 MG TAB.ER.24H PO (08:42)
[2023-03-30] MEDS: traZODone HCL 50 MG TABLET PO ×3 (08:42→19:55)
[2023-03-30] MEDS: hydroCHLOROthiazide 12.5 MG TABLET PO (08:42)
[2023-03-30] MEDS: Insulin Glargine,Hum.rec.anlog 100 UNIT/ML 10 ML VIAL 15 UNIT SUBCUT (08:43)
[2023-03-30] MEDS: Fluticasone Propionate 100 MCG BLST.W.DEV 2 PUFF INHALE (08:51)
--- NOTE | 2023-03-30 10:05 | P.PNPSI_ITS ---
Subjective Subjective Date of Service: 03/30/23 Reason For Visit: Dementia w behavioral disturbance, psychosis Subjective Notes: Conditional Voluntary Interim History: The nursing staff reported the patient had been more cooperative and pleasant, compliant with medications. She remains on one-to-one for safety. The staff noticed that the daughter wanted to bring her some homemade food. The occupational therapist reported that she stays mostly wheelchair level. Today we discussed with the team the probably she is slightly sedated and her delirium is clearing so we are discontinuing Seroquel 100 mg p.o. t.i.d. and lowered to 50 mg p.o. t.i.d. on interview the patient denies new symptoms pleasantly confused, easily redirectable. Mental Status Exam Mental Status Exam Patient Appearance: Appropriate Patient Orientation: Person and Situation Level of Consciousness: Awake and Appropriate Patient Behavior: Guarded and Passive Mood Description: Withdrawn Affect Description: Constricted Patient Cognition Impaired: Yes Ability to Follow Directions: Good Speech Pattern: Clear Hallucinations: None Delusions: Not Present Thought Process: Illogical and Distracted Thought Content: positive for [place] and positive for Poverty of Content Judgement: Fair Diagnostics Vital Signs (24Hr): Vital Signs - 24 hr 03/29/23 10:07 03/29/23 18:00 Temperature 97.5 F 97.9 F Pulse Rate 86 75 Respiratory Rate 16 16 Blood Pressure 132/62 149/69 H Pulse Oximetry 90 L 91 L Oxygen Delivery Method Room Air Room Air BMI result Body Mass Index 50.3 Labs 03/24/23 08:18 03/24/23 08:18 Labs: Laboratory Results - last 48 hr 03/28/23 03/29/23 03/29/23 11:17 07:54 11:24 POC Glucose 105 110 166 H 03/29/23 03/30/23 20:20 07:54 POC Glucose 276 H 91 Medications Medications Current Medications Acetaminophen (Acetaminophen 325 Mg Tablet) 650 mg PO Q6H PRN PRN Reason: fever Last Admin: 03/25/23 11:16 Dose: 650 mg Al Hydroxide/Mg Hydroxide (Magnesium Hydrox/Alum Hydrox 30 Ml Oral.Susp) 30 ml PO Q6H PRN PRN Reason: Heartburn/Nausea Albuterol Sulfate (Albuterol Sulfate 90 Mcg 8 Gm Inhaler) 2 puff INHALE RQ6H PRN PRN Reason: wheeze Capsaicin (Capsaicin 0.025% Cream 60 Gm Tube) 1 appl TOPICAL DAILY PRN; Protocol PRN Reason: Pain, Moderate(Pain Scale 4-6) Last Admin: 03/25/23 20:35 Dose: 1 appl Donepezil HCl (Donepezil Hcl 10 Mg Tablet) 10 mg PO BEDTIME [facility] Last Admin: 03/29/23 19:56 Dose: 10 mg Enoxaparin Sodium (Enoxaparin Sodium 40 Mg/0.4 Ml Syringe) 40 mg SUBCUT Q24H [facility] Last Admin: 03/29/23 11:59 Dose: 40 mg Ergocalciferol (Ergocalciferol (Vitamin D2) 1,250 Mcg Capsule) 1,250 mcg PO Sa@1000 [facility] Last Admin: 03/27/23 14:42 Dose: Not Given Famotidine (Famotidine 20 Mg Tablet) 20 mg PO BID [facility] Last Admin: 03/30/23 08:42 Dose: 20 mg Fluticasone Propionate (Fluticasone Propionate 100 Mcg Blst.W.Dev) 2 puff INH RACH RBID [facility] Last Admin: 03/30/23 08:51 Dose: 2 puff Guaifenesin (Guaifenesin 100 Mg/5 Ml Liquid) 5 ml PO Q4H PRN PRN Reason: Cough Hydrochlorothiazide (Hydrochlorothiazide 12.5 Mg Tablet) 12.5 mg PO DAILY [facility]; Protocol Last Admin: 03/30/23 08:42 Dose: 12.5 mg Insulin Glargine (Insulin Glargine,Hum.Rec.Anlog 100 Unit/Ml 10 Ml Vial) 15 unit SUBCUT DAILY [facility] Last Admin: 03/30/23 08:43 Dose: 15 unit Insulin Glargine (Insulin Glargine,Hum.Rec.Anlog 100 Unit/Ml 10 Ml Vial) 10 unit SUBCUT BEDTIME [facility] Last Admin: 03/29/23 20:30 Dose: 10 unit Insulin Human Lispro (Insulin Lispro 100 Unit/Ml 3 Ml Vial) 0 unit SUBCUT QIDACHS [facility]; Protocol Last Admin: 03/30/23 09:15 Dose: Not Given Insulin Human Lispro (Insulin Lispro 100 Unit/Ml 3 Ml Vial) 5 unit SUBCUT QIDACHS [facility] Last Admin: 03/30/23 09:16 Dose: Not Given Lamotrigine (Lamotrigine 25 Mg Tablet) 25 mg PO DAILY@1200 [facility] Last Admin: 03/29/23 11:50 Dose: 25 mg Levothyroxine Sodium (Levothyroxine Sodium 25 Mcg Tablet) 25 mcg PO DAILY@0630 [facility] Last Admin: 03/30/23 06:36 Dose: 25 mcg Loratadine (Loratadine 10 Mg Tablet) 10 mg PO DAILY PRN PRN Reason: allergy symptoms Last Admin: 03/23/23 12:55 Dose: 10 mg Magnesium Hydroxide (Milk Of Magnesia 30 Ml Oral.Susp) 30 ml PO DAILY PRN PRN Reason: Constipation Magnesium Oxide (Magnesium Oxide 400 Mg Tablet) 800 mg PO BIDPC [facility] Last Admin: 03/30/23 08:42 Dose: 800 mg Metformin HCl (Metformin Hcl Er 500 Mg Tab.Er.24h) 1,000 mg PO BEDTIME [facility] Last Admin: 03/29/23 19:55 Dose: 1,000 mg Metoprolol Succinate (Metoprolol Succinate Er 50 Mg Tab.Er.24h) 50 mg PO DAILY [facility]; Protocol Last Admin: 03/30/23 08:42 Dose: 50 mg Multivitamins/Vitamin C (Multivitamin Tablet) 1 tab PO DAILY [facility] Last Admin: 03/30/23 08:42 Dose: 1 tab Olanzapine (Olanzapine Odt 10 Mg Tab.Rapdis) 10 mg TRANSLINGU BID PRN PRN Reason: agitation Last Admin: 03/27/23 14:41 Dose: 10 mg Omeprazole (Omeprazole 40 Mg Capsule.Dr) 40 mg PO DAILY@0630 [facility] Last Admin: 03/30/23 06:36 Dose: 40 mg Pharmacy Consult (Consult Rx Perform Med Rec) 1 each MISCELLANE ONCE PRN PRN Reason: Consult order Polyethylene Glycol (Polyethylene Glycol 3350 17 Gm Powd.Pack) 17 gm PO DAILY [facility] Last Admin: 03/30/23 08:41 Dose: 17 gm Prednisone (Prednisone 10 Mg Tablet) 10 mg PO DAILY [facility] Last Admin: 03/30/23 08:42 Dose: 10 mg Quetiapine Fumarate (Quetiapine Fumarate 50 Mg Tablet) 50 mg PO TID [facility] Last Admin: 03/30/23 09:13 Dose: Not Given Senna/Docusate Sodium (Sennosides/Docusate Sodium Tablet) 1 tab PO BEDTIME [facility] Last Admin: 03/29/23 19:58 Dose: 1 tab Trazodone HCl (Trazodone Hcl 50 Mg Tablet) 50 mg PO BEDTIME [facility]X1 PRN PRN Reason: Insomnia Last Admin: 03/24/23 22:37 Dose: 50 mg Trazodone HCl (Trazodone Hcl 50 Mg Tablet) 50 mg PO TID [facility] Last Admin: 03/30/23 08:42 Dose: 50 mg Allergies Allergies Allergy/AdvReac Type Severity Reaction Status Date / Time No Known Allergies Allergy Verified 03/02/23 16:08 Assessment & Plan Assessment & Plan (1) Dementia with behavioral disturbance: Status: Acute Code(s): F03.918 - Unspecified dementia, unspecified severity, with other behavioral disturbance Plan 82 yo female, recovering from acute on chronic hypoxemic hypercarbic respiratory failure due to acute severe persistent asthma exacerbation, with dementia with behavioral disturbance, question of delirium. Plan: Continue current regime Collateral contact with family Monitor behavior and adjust medications as needed Increase Trazodone up to 50 mg po tid. On 03/23 Increase Seroquel up to 100 mg po tid. On 03/23. Later with lower Seroquel to 50 mg p.o. t.i.d. on 03/30. Reason for continued inpatient stay Substantial Risk for: inability to function, rapid decompensation and med/psych decompensation Time Spent With Patient Time: Total time managing care of this patient today __20__ minutes.
[2023-03-30 11:29] LABS: Glucose, Whole Blood 151 mg/dL (60-115)
[2023-03-30] MEDS: lamoTRIgine 25 MG TABLET PO (12:03)
[2023-03-30] MEDS: Insulin Lispro 100 UNIT/ML 3 ML VIAL SUBCUT ×4 (12:03→17:02)
[2023-03-30] MEDS: Enoxaparin Sodium 40 MG/0.4 ML SYRINGE SUBCUT (12:04)
[2023-03-30] MEDS: QUEtiapine Fumarate 50 MG TABLET PO ×2 (16:03→19:54)
[2023-03-30 16:15] LABS: Glucose, Whole Blood 189 mg/dL (60-115)
[2023-03-30 16:19] VITALS: O2SAT 90
[2023-03-30 18:00] VITALS: BP 135/66; PULSE 70; RESP 18; TEMP 36.5
[2023-03-30] MEDS: OLANZapine ODT 10 MG TAB.RAPDIS TRANSLINGU (19:53)
[2023-03-30 20:08] LABS: Glucose, Whole Blood 260 mg/dL (60-115)
[2023-03-30] MEDS: Insulin Glargine,Hum.rec.anlog 100 UNIT/ML 10 ML VIAL 10 UNIT SUBCUT (22:38)
[2023-03-31 07:46] LABS: Glucose, Whole Blood 118 mg/dL (60-115)
[2023-03-31 07:54] VITALS: BP 139/63; PULSE 93; TEMP 36.4; O2SAT 91
[2023-03-31] MEDS: Insulin Lispro 100 UNIT/ML 3 ML VIAL SUBCUT ×6 (08:04→20:32)
[2023-03-31] MEDS: Insulin Glargine,Hum.rec.anlog 100 UNIT/ML 10 ML VIAL 15 UNIT SUBCUT (08:04)
[2023-03-31] MEDS: Magnesium Oxide 400 MG TABLET 800 MG PO ×2 (08:06→16:58)
[2023-03-31] MEDS: QUEtiapine Fumarate 50 MG TABLET PO ×3 (08:06→20:16)
[2023-03-31] MEDS: traZODone HCL 50 MG TABLET PO ×3 (08:06→20:16)
[2023-03-31] MEDS: hydroCHLOROthiazide 12.5 MG TABLET PO (08:06)
[2023-03-31] MEDS: Famotidine 20 MG TABLET PO ×2 (08:07→20:16)
[2023-03-31] MEDS: Omeprazole 40 MG CAPSULE.DR PO (08:07)
[2023-03-31] MEDS: Levothyroxine Sodium 25 MCG TABLET PO (08:07)
[2023-03-31] MEDS: Metoprolol Succinate ER 50 MG TAB.ER.24H PO (08:07)
[2023-03-31] MEDS: predniSONE 10 MG TABLET PO (08:08)
[2023-03-31] MEDS: Multivitamin TABLET 1 TAB PO (08:08)
[2023-03-31] MEDS: Fluticasone Propionate 100 MCG BLST.W.DEV 2 PUFF INHALE (08:12)
[2023-03-31 08:38] LABS: Creatinine Clr Calc Pharmacy 54.1; Estimated Glomerular Filt Rate > 60
[2023-03-31 11:22] LABS: Glucose, Whole Blood 165 mg/dL (60-115)
--- NOTE | 2023-03-31 11:47 | HO.PSYCHPN ---
Subjective Subjective Date of Service: 03/31/23 Reason For Visit: Dementia w behavioral disturbance, psychosis Subjective Notes: Conditional Voluntary Interim History: The nursing staff reported the patient has been pleasant and cooperative fully compliant with treatment. She slept 7 hours. She has refused the point of care and refused her insulin shot. The social contact worker reported that they want to bring her back home, we will have a family meeting to explain the status of the patient. The occupational therapist reported that she is doing much better she could walk a couple of steps with her [place] Walker and she is able to stand and pivot. On interview the patient was pleasant, cooperative, confused at times. But very easily redirectable. Mental Status Exam Mental Status Exam Patient Appearance: Well Grooomed and Appropriate Patient Orientation: Person and Situation Level of Consciousness: Awake and Appropriate Patient Behavior: Guarded and Passive Mood Description: Withdrawn Affect Description: Constricted Patient Cognition Impaired: Yes Ability to Follow Directions: Good Speech Pattern: Clear Hallucinations: None Delusions: Not Present Thought Process: Distracted, Evasive and Slowed Thinking Thought Content: positive for [place] and positive for Circumstantial Judgement: Fair Diagnostics Vital Signs (24Hr): Vital Signs - 24 hr 03/30/23 16:19 03/30/23 18:00 03/31/23 07:54 Temperature 97.7 F 97.5 F Pulse Rate 70 93 Respiratory Rate 18 Blood Pressure 135/66 139/63 Pulse Oximetry 90 L 91 L Oxygen Delivery Method Room Air Room Air BMI result Body Mass Index 50.3 Labs 03/24/23 08:18 03/31/23 08:08 Labs: Laboratory Results - last 48 hr 03/29/23 03/30/23 03/30/23 20:20 07:54 11:24 Creatinine Estim Creat Clear Calc Estimated GFR POC Glucose 276 H 91 151 H 03/30/23 03/30/23 03/31/23 16:10 20:02 07:42 Creatinine Estim Creat Clear Calc Estimated GFR POC Glucose 189 H 260 H 118 H 03/31/23 03/31/23 08:08 11:18 Creatinine 0.84 Estim Creat Clear Calc 54.1 Estimated GFR > 60 POC Glucose 165 H Medications Medications Current Medications Acetaminophen (Acetaminophen 325 Mg Tablet) 650 mg PO Q6H PRN PRN Reason: fever Last Admin: 03/25/23 11:16 Dose: 650 mg Al Hydroxide/Mg Hydroxide (Magnesium Hydrox/Alum Hydrox 30 Ml Oral.Susp) 30 ml PO Q6H PRN PRN Reason: Heartburn/Nausea Albuterol Sulfate (Albuterol Sulfate 90 Mcg 8 Gm Inhaler) 2 puff INHALE RQ6H PRN PRN Reason: wheeze Capsaicin (Capsaicin 0.025% Cream 60 Gm Tube) 1 appl TOPICAL DAILY PRN; Protocol PRN Reason: Pain, Moderate(Pain Scale 4-6) Last Admin: 03/25/23 20:35 Dose: 1 appl Donepezil HCl (Donepezil Hcl 10 Mg Tablet) 10 mg PO BEDTIME [facility] Last Admin: 03/30/23 22:48 Dose: Not Given Enoxaparin Sodium (Enoxaparin Sodium 40 Mg/0.4 Ml Syringe) 40 mg SUBCUT Q24H [facility] Last Admin: 03/30/23 12:04 Dose: 40 mg Ergocalciferol (Ergocalciferol (Vitamin D2) 1,250 Mcg Capsule) 1,250 mcg PO Sa@1000 [facility] Last Admin: 03/27/23 14:42 Dose: Not Given Famotidine (Famotidine 20 Mg Tablet) 20 mg PO BID [facility] Last Admin: 03/31/23 08:07 Dose: 20 mg Fluticasone Propionate (Fluticasone Propionate 100 Mcg Blst.W.Dev) 2 puff INHALE RBID [facility] Last Admin: 03/31/23 08:12 Dose: 2 puff Guaifenesin (Guaifenesin 100 Mg/5 Ml Liquid) 5 ml PO Q4H PRN PRN Reason: Cough Hydrochlorothiazide (Hydrochlorothiazide 12.5 Mg Tablet) 12.5 mg PO DAILY [facility]; Protocol Last Admin: 03/31/23 08:06 Dose: 12.5 mg Insulin Glargine (Insulin Glargine,Hum.Rec.Anlog 100 Unit/Ml 10 Ml Vial) 15 unit SUBCUT DAILY [facility] Last Admin: 03/31/23 08:04 Dose: 15 unit Insulin Glargine (Insulin Glargine,Hum.Rec.Anlog 100 Unit/Ml 10 Ml Vial) 10 unit SUBCUT BEDTIME [facility] Last Admin: 03/30/23 22:38 Dose: 10 unit Insulin Human Lispro (Insulin Lispro 100 Unit/Ml 3 Ml Vial) 0 unit SUBCUT QIDACHS [facility]; Protocol Last Admin: 03/31/23 07:43 Dose: Not Given Insulin Human Lispro (Insulin Lispro 100 Unit/Ml 3 Ml Vial) 5 unit SUBCUT QIDACHS [facility] Last Admin: 03/31/23 08:04 Dose: 5 unit Lamotrigine (Lamotrigine 25 Mg Tablet) 25 mg PO DAILY@1200 [facility] Last Admin: 03/30/23 12:03 Dose: 25 mg Levothyroxine Sodium (Levothyroxine Sodium 25 Mcg Tablet) 25 mcg PO DAILY@629 [facility] Last Admin: 03/31/23 08:07 Dose: 25 mcg Loratadine (Loratadine 10 Mg Tablet) 10 mg PO DAILY PRN PRN Reason: allergy symptoms Last Admin: 03/23/23 12:55 Dose: 10 mg Magnesium Hydroxide (Milk Of Magnesia 30 Ml Oral.Susp) 30 ml PO DAILY PRN PRN Reason: Constipation Magnesium Oxide (Magnesium Oxide 400 Mg Tablet) 800 mg PO BIDPC [facility] Last Admin: 03/31/23 08:06 Dose: 800 mg Metformin HCl (Metformin Hcl Er 500 Mg Tab.Er.24h) 1,000 mg PO BEDTIME [facility] Last Admin: 03/30/23 22:47 Dose: Not Given Metoprolol Succinate (Metoprolol Succinate Er 50 Mg Tab.Er.24h) 50 mg PO DAILY [facility]; Protocol Last Admin: 03/31/23 08:07 Dose: 50 mg Multivitamins/Vitamin C (Multivitamin Tablet) 1 tab PO DAILY [facility] Last Admin: 03/31/23 08:08 Dose: 1 tab Olanzapine (Olanzapine Odt 10 Mg Tab.Rapdis) 10 mg TRANSLINGU BID PRN PRN Reason: agitation Last Admin: 03/30/23 19:53 Dose: 10 mg Omeprazole (Omeprazole 40 Mg Capsule.Dr) 40 mg PO DAILY@629 [facility] Last Admin: 03/31/23 08:07 Dose: 40 mg Pharmacy Consult (Consult Rx Perform Med Rec) 1 each MISCELLANE ONCE PRN PRN Reason: Consult order Polyethylene Glycol (Polyethylene Glycol 3350 17 Gm Powd.Pack) 17 gm PO DAILY [facility] Last Admin: 03/31/23 08:15 Dose: Not Given Prednisone (Prednisone 10 Mg Tablet) 10 mg PO DAILY [facility] Last Admin: 03/31/23 08:08 Dose: 10 mg Quetiapine Fumarate (Quetiapine Fumarate 50 Mg Tablet) 50 mg PO TID [facility] Last Admin: 03/31/23 08:06 Dose: 50 mg Senna/Docusate Sodium (Sennosides/Docusate Sodium Tablet) 1 tab PO BEDTIME [facility] Last Admin: 03/30/23 22:47 Dose: Not Given Trazodone HCl (Trazodone Hcl 50 Mg Tablet) 50 mg PO BEDTIME MRX1 PRN PRN Reason: Insomnia Last Admin: 03/24/23 22:37 Dose: 50 mg Trazodone HCl (Trazodone Hcl 50 Mg Tablet) 50 mg PO TID [facility] Last Admin: 03/31/23 08:06 Dose: 50 mg Allergies Allergies Allergy/AdvReac Type Severity Reaction Status Date / Time No Known Allergies Allergy Verified 03/02/23 16:08 Assessment & Plan Assessment & Plan (1) Dementia with behavioral disturbance: Status: Acute Code(s): F03.918 - Unspecified dementia, unspecified severity, with other behavioral disturbance Plan 82 yo female, recovering from acute on chronic hypoxemic hypercarbic respiratory failure due to acute severe persistent asthma exacerbation, with dementia with behavioral disturbance, question of delirium. Plan: Continue current regime Collateral contact with family Monitor behavior and adjust medications as needed Increase Trazodone up to 50 mg po tid. On 03/23 Increase Seroquel up to 100 mg po tid. On 03/23. Later with lower Seroquel to 50 mg p.o. t.i.d. on 03/30. Family meeting next week for discharge planning Reason for continued inpatient stay Substantial Risk for: inability to function, rapid decompensation and med/psych decompensation Time Spent With Patient Time: Total time managing care of this patient today _20___ minutes.
[2023-03-31] MEDS: Enoxaparin Sodium 40 MG/0.4 ML SYRINGE SUBCUT (11:49)
[2023-03-31] MEDS: lamoTRIgine 25 MG TABLET PO (11:50)
[2023-03-31 15:48] VITALS: PULSE 83; O2SAT 92
--- NOTE | 2023-03-31 16:02 | MHC.CLN ---
NUTRITION DIET=DIABETIC 2200 KCALS-APPROPRIATE. SKIN WITH SMALL OPEN AREA ON LEFT BUTTOCK. GOOD INTAKE AT MEALS. NO NEW NUTRITION INTERVENTIONS AT THIS TIME. RD TO FOLLOW WEEKLY.
[2023-03-31 16:19] LABS: Glucose, Whole Blood 314 mg/dL (60-115)
[2023-03-31 19:00] VITALS: BP 137/65; PULSE 75; RESP 16; TEMP 36.2; O2SAT 94
[2023-03-31] MEDS: Donepezil HCl 10 MG TABLET PO (20:16)
[2023-03-31] MEDS: metFORMIN HCl ER 500 MG TAB.ER.24H 1000 MG PO (20:16)
[2023-03-31] MEDS: Sennosides/Docusate Sodium TABLET 1 TAB PO (20:16)
[2023-03-31 20:22] LABS: Glucose, Whole Blood 176 mg/dL (60-115)
[2023-03-31] MEDS: Insulin Glargine,Hum.rec.anlog 100 UNIT/ML 10 ML VIAL 10 UNIT SUBCUT (20:30)
[2023-04-01 07:54] LABS: Glucose, Whole Blood 93 mg/dL (60-115)
[2023-04-01 08:12] VITALS: BP 151/65; PULSE 76; RESP 18; TEMP 36.3; O2SAT 95
[2023-04-01] MEDS: Multivitamin TABLET 1 TAB PO (09:00)
[2023-04-01] MEDS: Famotidine 20 MG TABLET PO (09:00)
[2023-04-01] MEDS: Insulin Glargine,Hum.rec.anlog 100 UNIT/ML 10 ML VIAL 15 UNIT SUBCUT (09:01)
[2023-04-01] MEDS: Omeprazole 40 MG CAPSULE.DR PO ×2 (09:01→09:04)
[2023-04-01] MEDS: Levothyroxine Sodium 25 MCG TABLET PO ×2 (09:01→09:04)
[2023-04-01] MEDS: hydroCHLOROthiazide 12.5 MG TABLET PO (09:01)
[2023-04-01] MEDS: predniSONE 10 MG TABLET PO (09:01)
[2023-04-01] MEDS: Metoprolol Succinate ER 50 MG TAB.ER.24H PO (09:01)
[2023-04-01] MEDS: QUEtiapine Fumarate 50 MG TABLET PO (09:01)
[2023-04-01] MEDS: traZODone HCL 50 MG TABLET PO (09:01)
[2023-04-01] MEDS: Magnesium Oxide 400 MG TABLET 800 MG PO (09:01)
[2023-04-01] MEDS: Insulin Lispro 100 UNIT/ML 3 ML VIAL SUBCUT ×4 (09:04→21:30)
[2023-04-01 11:32] LABS: Glucose, Whole Blood 128 mg/dL (60-115)
[2023-04-01] MEDS: lamoTRIgine 25 MG TABLET PO (11:51)
[2023-04-01] MEDS: Enoxaparin Sodium 40 MG/0.4 ML SYRINGE SUBCUT (11:51)
--- NOTE | 2023-04-01 14:28 | HO.PSYCHPN ---
Subjective Subjective Date of Service: 04/01/23 Reason For Visit: Dementia w behavioral disturbance, psychosis Subjective Notes: Conditional Voluntary Interim History: The nursing staff reported the patient has been pleasant and cooperative in the morning. The occupational therapist reported that she still in a wheelchair but she looks much better alert and oriented. The social psychologist reported the family wants her back home and they have water ready hospital bed. On interview the patient denies new symptoms pleasantly confused, easily redirectable. Mental Status Exam Mental Status Exam Patient Appearance: Well Grooomed Patient Orientation: Person Level of Consciousness: Awake and Appropriate Patient Behavior: Guarded and Passive Mood Description: Calm and Withdrawn Affect Description: Constricted Patient Cognition Impaired: Yes Ability to Follow Directions: Good Speech Pattern: Clear Hallucinations: None Delusions: Paranoid Ideation Thought Process: Distracted, Evasive and Slowed Thinking Thought Content: positive for [place], positive for Poverty of Content and positive for Thought Blocking Judgement: Fair Diagnostics Vital Signs (24Hr): Vital Signs - 24 hr 03/31/23 15:48 03/31/23 19:00 04/01/23 08:12 Temperature 97.1 F 97.4 F Pulse Rate 83 75 76 Respiratory Rate 16 18 Blood Pressure 137/65 151/65 H Pulse Oximetry 92 94 95 Oxygen Delivery Method Room Air Room Air BMI result Body Mass Index 50.3 Labs 03/24/23 08:18 03/31/23 08:08 Labs: Laboratory Results - last 48 hr 03/30/23 03/30/23 03/31/23 16:10 20:02 07:42 Creatinine Estim Creat Clear Calc Estimated GFR POC Glucose 189 H 260 H 118 H 03/31/23 03/31/23 03/31/23 08:08 11:18 16:15 Creatinine 0.84 Estim Creat Clear Calc 54.1 Estimated GFR > 60 POC Glucose 165 H 314 H 03/31/23 04/01/23 04/01/23 20:14 07:49 11:28 Creatinine Estim Creat Clear Calc Estimated GFR POC Glucose 176 H 93 128 H Medications Medications Current Medications Acetaminophen (Acetaminophen 325 Mg Tablet) 650 mg PO Q6H PRN PRN Reason: fever Last Admin: 03/25/23 11:16 Dose: 650 mg Al Hydroxide/Mg Hydroxide (Magnesium Hydrox/Alum Hydrox 30 Ml Oral.Susp) 30 ml PO Q6H PRN PRN Reason: Heartburn/Nausea Albuterol Sulfate (Albuterol Sulfate 90 Mcg 8 Gm Inhaler) 2 puff INHALE RQ6H PRN PRN Reason: wheeze Capsaicin (Capsaicin 0.025% Cream 60 Gm Tube) 1 appl TOPICAL DAILY PRN; Protocol PRN Reason: Pain, Moderate(Pain Scale 4-6) Last Admin: 03/25/23 20:35 Dose: 1 appl Donepezil HCl (Donepezil Hcl 10 Mg Tablet) 10 mg PO BEDTIME [facility] Last Admin: 03/31/23 20:16 Dose: 10 mg Enoxaparin Sodium (Enoxaparin Sodium 40 Mg/0.4 Ml Syringe) 40 mg SUBCUT Q24H [facility] Last Admin: 04/01/23 11:51 Dose: 40 mg Ergocalciferol (Ergocalciferol (Vitamin D2) 1,250 Mcg Capsule) 1,250 mcg PO Sa@1000 [facility] Last Admin: 03/27/23 14:42 Dose: Not Given Famotidine (Famotidine 20 Mg Tablet) 20 mg PO BID [facility] Last Admin: 04/01/23 09:00 Dose: 20 mg Fluticasone Propionate (Fluticasone Propionate 100 Mcg Blst.W.Dev) 2 puff INHALE RBID [facility] Last Admin: 04/01/23 09:11 Dose: Not Given Guaifenesin (Guaifenesin 100 Mg/5 Ml Liquid) 5 ml PO Q4H PRN PRN Reason: Cough Hydrochlorothiazide (Hydrochlorothiazide 12.5 Mg Tablet) 12.5 mg PO DAILY [facility]; Protocol Last Admin: 04/01/23 09:01 Dose: 12.5 mg Insulin Glargine (Insulin Glargine,Hum.Rec.Anlog 100 Unit/Ml 10 Ml Vial) 15 unit SUBCUT DAILY [facility] Last Admin: 04/01/23 09:01 Dose: 15 unit Insulin Glargine (Insulin Glargine,Hum.Rec.Anlog 100 Unit/Ml 10 Ml Vial) 10 unit SUBCUT BEDTIME [facility] Last Admin: 03/31/23 20:30 Dose: 10 unit Insulin Human Lispro (Insulin Lispro 100 Unit/Ml 3 Ml Vial) 0 unit SUBCUT QIDACHS [facility]; Protocol Last Admin: 04/01/23 11:31 Dose: Not Given Insulin Human Lispro (Insulin Lispro 100 Unit/Ml 3 Ml Vial) 5 unit SUBCUT QIDACHS [facility] Last Admin: 04/01/23 11:50 Dose: 5 unit Lamotrigine (Lamotrigine 25 Mg Tablet) 25 mg PO DAILY@1200 [facility] Last Admin: 04/01/23 11:51 Dose: 25 mg Levothyroxine Sodium (Levothyroxine Sodium 25 Mcg Tablet) 25 mcg PO DAILY@0630 [facility] Last Admin: 04/01/23 09:04 Dose: 25 mcg Loratadine (Loratadine 10 Mg Tablet) 10 mg PO DAILY PRN PRN Reason: allergy symptoms Last Admin: 03/23/23 12:55 Dose: 10 mg Magnesium Hydroxide (Milk Of Magnesia 30 Ml Oral.Susp) 30 ml PO DAILY PRN PRN Reason: Constipation Magnesium Oxide (Magnesium Oxide 400 Mg Tablet) 800 mg PO BIDPC [facility] Last Admin: 04/01/23 09:01 Dose: 800 mg Metformin HCl (Metformin Hcl Er 500 Mg Tab.Er.24h) 1,000 mg PO BEDTIME [facility] Last Admin: 03/31/23 20:16 Dose: 1,000 mg Metoprolol Succinate (Metoprolol Succinate Er 50 Mg Tab.Er.24h) 50 mg PO DAILY [facility]; Protocol Last Admin: 04/01/23 09:01 Dose: 50 mg Multivitamins/Vitamin C (Multivitamin Tablet) 1 tab PO DAILY [facility] Last Admin: 04/01/23 09:00 Dose: 1 tab Olanzapine (Olanzapine Odt 10 Mg Tab.Rapdis) 10 mg TRANSLINGU BID PRN PRN Reason: agitation Last Admin: 03/30/23 19:53 Dose: 10 mg Omeprazole (Omeprazole 40 Mg Capsule.) 40 mg PO DAILY@30 [facility] Last Admin: 04/01/23 09:04 Dose: 40 mg Pharmacy Consult (Consult Rx Perform Med Rec) 1 each MISCELLANE ONCE PRN PRN Reason: Consult order Polyethylene Glycol (Polyethylene Glycol 3350 17 Gm Powd.Pack) 17 gm PO DAILY [facility] Last Admin: 04/01/23 09:11 Dose: Not Given Prednisone (Prednisone 10 Mg Tablet) 10 mg PO DAILY [facility] Last Admin: 04/01/23 09:01 Dose: 10 mg Quetiapine Fumarate (Quetiapine Fumarate 50 Mg Tablet) 50 mg PO TID [facility] Last Admin: 04/01/23 09:01 Dose: 50 mg Senna/Docusate Sodium (Sennosides/Docusate Sodium Tablet) 1 tab PO BEDTIME [facility] Last Admin: 03/31/23 20:16 Dose: 1 tab Trazodone HCl (Trazodone Hcl 50 Mg Tablet) 50 mg PO BEDTIME [facility] PRN PRN Reason: Insomnia Last Admin: 03/24/23 22:37 Dose: 50 mg Trazodone HCl (Trazodone Hcl 50 Mg Tablet) 50 mg PO TID [facility] Last Admin: 04/01/23 09:01 Dose: 50 mg Allergies Allergies Allergy/AdvReac Type Severity Reaction Status Date / Time No Known Allergies Allergy Verified 03/02/23 16:08 Assessment & Plan Assessment & Plan (1) Dementia with behavioral disturbance: Status: Acute Code(s): F03.918 - Unspecified dementia, unspecified severity, with other behavioral disturbance Plan 82 yo female, recovering from acute on chronic hypoxemic hypercarbic respiratory failure due to acute severe persistent asthma exacerbation, with dementia with behavioral disturbance, question of delirium. Plan: Continue current regime Collateral contact with family Monitor behavior and adjust medications as needed Increase Trazodone up to 50 mg po tid. On 03/23 Increase Seroquel up to 100 mg po tid. On 03/23. Later with lower Seroquel to 50 mg p.o. t.i.d. on 03/30. Family meeting next week for discharge planning Reason for continued inpatient stay Substantial Risk for: inability to function, rapid decompensation and med/psych decompensation Time Spent With Patient Time: Total time managing care of this patient today __20__ minutes.
--- NOTE | 2023-04-01 16:26 | PC.NURSE ---
Addendum entered by Mayi Razo RN 04/01/23 18:50: Aisha declined morning miralax and inhaler; Dr. Chris notified. Original Note: Aisha asleep from approximately 1400 until 1630, held [address] Chris aware.
[2023-04-01 16:37] LABS: Glucose, Whole Blood 113 mg/dL (60-115)
[2023-04-01 17:25] VITALS: BMI 49.9
[2023-04-01 20:02] VITALS: BP 164/70; PULSE 74; RESP 18; TEMP 36.1; O2SAT 92
[2023-04-01] MEDS: Insulin Glargine,Hum.rec.anlog 100 UNIT/ML 10 ML VIAL 10 UNIT SUBCUT ×2 (21:35→22:26)
[2023-04-02 08:06] LABS: Glucose, Whole Blood 137 mg/dL (60-115)
[2023-04-02 08:40] VITALS: BP 155/96; PULSE 82; TEMP 36.6; O2SAT 92
[2023-04-02] MEDS: QUEtiapine Fumarate 50 MG TABLET PO (08:40)
[2023-04-02] MEDS: predniSONE 10 MG TABLET PO (08:41)
[2023-04-02] MEDS: Famotidine 20 MG TABLET PO ×2 (08:42→20:03)
[2023-04-02] MEDS: hydroCHLOROthiazide 12.5 MG TABLET PO (08:43)
[2023-04-02] MEDS: Magnesium Oxide 400 MG TABLET 800 MG PO ×2 (08:44→16:48)
[2023-04-02] MEDS: traZODone HCL 50 MG TABLET PO ×4 (08:45→22:57)
[2023-04-02] MEDS: Omeprazole 40 MG CAPSULE.DR PO (08:46)
[2023-04-02] MEDS: Levothyroxine Sodium 25 MCG TABLET PO (08:46)
[2023-04-02] MEDS: Fluticasone Propionate 100 MCG BLST.W.DEV 2 PUFF INHALE ×2 (08:51→20:04)
[2023-04-02] MEDS: Insulin Glargine,Hum.rec.anlog 100 UNIT/ML 10 ML VIAL 15 UNIT SUBCUT (08:52)
[2023-04-02] MEDS: Insulin Lispro 100 UNIT/ML 3 ML VIAL SUBCUT ×6 (08:53→21:32)
[2023-04-02] MEDS: polyethylene glycoL 3350 17 GM POWD.PACK PO (08:56)
[2023-04-02] MEDS: Multivitamin TABLET 1 TAB PO (09:36)
[2023-04-02] MEDS: Metoprolol Succinate ER 50 MG TAB.ER.24H PO (09:36)
[2023-04-02 10:50] VITALS: BP 155/96; PULSE 82; O2SAT 92
[2023-04-02] MEDS: Enoxaparin Sodium 40 MG/0.4 ML SYRINGE SUBCUT (11:25)
[2023-04-02] MEDS: lamoTRIgine 25 MG TABLET PO (11:26)
[2023-04-02 11:32] LABS: Glucose, Whole Blood 136 mg/dL (60-115)
--- NOTE | 2023-04-02 13:51 | P.PNPSI_ITS ---
Subjective Subjective Date of Service: 04/02/23 Reason For Visit: Dementia w behavioral disturbance, psychosis Subjective Notes: Conditional Voluntary Interim History: The nursing staff reported the patient slept 6 hours she had been fully compliant with treatment and she has been pleasant and cooperative. The social psychologist reported that the family had wants her back at home and they have bought a hospital bed. Most likely discharge early next week. On interview the patient reports that she is doing fine she looks slightly sedated so we are tapering of the Seroquel up to 25 p.o. b.i.d. in order to avoid over-sedation. Mental Status Exam Mental Status Exam Patient Appearance: Well Grooomed and Appropriate Patient Orientation: Person and Situation Level of Consciousness: Awake and Appropriate Patient Behavior: Guarded and Passive Mood Description: Withdrawn Affect Description: Constricted Patient Cognition Impaired: Yes Ability to Follow Directions: Good Speech Pattern: Clear Hallucinations: None Delusions: Paranoid Ideation Thought Process: Distracted and Linear Thought Content: positive for [place] and positive for Poverty of Content Judgement: Poor Diagnostics Vital Signs (24Hr): Vital Signs - 24 hr 04/01/23 20:02 04/02/23 06:00 04/02/23 10:50 Temperature 97.0 F 97.8 F Pulse Rate 74 82 82 Respiratory Rate 18 Blood Pressure 164/70 H 155/96 H 155/96 H Pulse Oximetry 92 92 92 Oxygen Delivery Method Room Air Room Air BMI result Body Mass Index 49.9 Labs 03/24/23 08:18 03/31/23 08:08 Labs: Laboratory Results - last 48 hr 03/31/23 03/31/23 04/01/23 16:15 20:14 07:49 POC Glucose 314 H 176 H 93 04/01/23 04/01/23 04/02/23 11:28 16:23 07:52 POC Glucose 128 H 113 137 H 04/02/23 11:17 POC Glucose 136 H Medications Medications Current Medications Acetaminophen (Acetaminophen 325 Mg Tablet) 650 mg PO Q6H PRN PRN Reason: fever Last Admin: 03/25/23 11:16 Dose: 650 mg Al Hydroxide/Mg Hydroxide (Magnesium Hydrox/Alum Hydrox 30 Ml Oral.Susp) 30 ml PO Q6H PRN PRN Reason: Heartburn/Nausea Albuterol Sulfate (Albuterol Sulfate 90 Mcg 8 Gm Inhaler) 2 puff INHALE RQ6H PRN PRN Reason: wheeze Capsaicin (Capsaicin 0.025% Cream 60 Gm Tube) 1 appl TOPICAL DAILY PRN; Protocol PRN Reason: Pain, Moderate(Pain Scale 4-6) Last Admin: 03/25/23 20:35 Dose: 1 appl Donepezil HCl (Donepezil Hcl 10 Mg Tablet) 10 mg PO BEDTIME [facility] Last Admin: 04/01/23 20:46 Dose: Not Given Enoxaparin Sodium (Enoxaparin Sodium 40 Mg/0.4 Ml Syringe) 40 mg SUBCUT Q24H [facility] Last Admin: 04/02/23 11:25 Dose: 40 mg Ergocalciferol (Ergocalciferol (Vitamin D2) 1,250 Mcg Capsule) 1,250 mcg PO Sa@1000 [facility] Last Admin: 03/27/23 14:42 Dose: Not Given Famotidine (Famotidine 20 Mg Tablet) 20 mg PO BID [facility] Last Admin: 04/02/23 08:42 Dose: 20 mg Fluticasone Propionate (Fluticasone Propionate 100 Mcg Blst.W.Dev) 2 puff INHALE RBID [facility] Last Admin: 04/02/23 08:51 Dose: 2 puff Guaifenesin (Guaifenesin 100 Mg/5 Ml Liquid) 5 ml PO Q4H PRN PRN Reason: Cough Hydrochlorothiazide (Hydrochlorothiazide 12.5 Mg Tablet) 12.5 mg PO DAILY [facility]; Protocol Last Admin: 04/02/23 08:43 Dose: 12.5 mg Insulin Glargine (Insulin Glargine,Hum.Rec.Anlog 100 Unit/Ml 10 Ml Vial) 15 unit SUBCUT DAILY [facility] Last Admin: 04/02/23 08:52 Dose: 15 unit Insulin Glargine (Insulin Glargine,Hum.Rec.Anlog 100 Unit/Ml 10 Ml Vial) 10 unit SUBCUT BEDTIME [facility] Last Admin: 04/01/23 22:26 Dose: 10 unit Insulin Human Lispro (Insulin Lispro 100 Unit/Ml 3 Ml Vial) 0 unit SUBCUT QIDACHS [facility]; Protocol Last Admin: 04/02/23 11:27 Dose: Not Given Insulin Human Lispro (Insulin Lispro 100 Unit/Ml 3 Ml Vial) 5 unit SUBCUT QIDACHS [facility] Last Admin: 04/02/23 11:25 Dose: 5 unit Lamotrigine (Lamotrigine 25 Mg Tablet) 25 mg PO DAILY@1200 [facility] Last Admin: 04/02/23 11:26 Dose: 25 mg Levothyroxine Sodium (Levothyroxine Sodium 25 Mcg Tablet) 25 mcg PO DAILY@0630 [facility] Last Admin: 04/02/23 08:46 Dose: 25 mcg Loratadine (Loratadine 10 Mg Tablet) 10 mg PO DAILY PRN PRN Reason: allergy symptoms Last Admin: 03/23/23 12:55 Dose: 10 mg Magnesium Hydroxide (Milk Of Magnesia 30 Ml Oral.Susp) 30 ml PO DAILY PRN PRN Reason: Constipation Magnesium Oxide (Magnesium Oxide 400 Mg Tablet) 800 mg PO BIDPC [facility] Last Admin: 04/02/23 08:44 Dose: 800 mg Metformin HCl (Metformin Hcl Er 500 Mg Tab.Er.24h) 1,000 mg PO BEDTIME [facility] Last Admin: 04/01/23 20:50 Dose: Not Given Metoprolol Succinate (Metoprolol Succinate Er 50 Mg Tab.Er.24h) 50 mg PO DAILY [facility]; Protocol Last Admin: 04/02/23 09:36 Dose: 50 mg Multivitamins/Vitamin C (Multivitamin Tablet) 1 tab PO DAILY [facility] Last Admin: 04/02/23 09:36 Dose: 1 tab Olanzapine (Olanzapine Odt 10 Mg Tab.Rapdis) 10 mg TRANSLINGU BID PRN PRN Reason: agitation Last Admin: 03/30/23 19:53 Dose: 10 mg Omeprazole (Omeprazole 40 Mg Capsule.Dr) 40 mg PO DAILY@0630 [facility] Last Admin: 04/02/23 08:46 Dose: 40 mg Pharmacy Consult (Consult Rx Perform Med Rec) 1 each MISCELLANE ONCE PRN PRN Reason: Consult order Polyethylene Glycol (Polyethylene Glycol 3350 17 Gm Powd.Pack) 17 gm PO DAILY [facility] Last Admin: 04/02/23 08:56 Dose: 17 gm Prednisone (Prednisone 10 Mg Tablet) 10 mg PO DAILY [facility] Last Admin: 04/02/23 08:41 Dose: 10 mg Quetiapine Fumarate (Quetiapine Fumarate 25 Mg Tablet) 25 mg PO TID [facility] Senna/Docusate Sodium (Sennosides/Docusate Sodium Tablet) 1 tab PO BEDTIME [facility] Last Admin: 04/01/23 20:47 Dose: Not Given Trazodone HCl (Trazodone Hcl 50 Mg Tablet) 50 mg PO BEDTIME [facility]X1 PRN PRN Reason: Insomnia Last Admin: 03/24/23 22:37 Dose: 50 mg Trazodone HCl (Trazodone Hcl 50 Mg Tablet) 50 mg PO TID [facility] Last Admin: 04/02/23 08:45 Dose: 50 mg Allergies Allergies Allergy/AdvReac Type Severity Reaction Status Date / Time No Known Allergies Allergy Verified 03/02/23 16:08 Assessment & Plan Assessment & Plan (1) Dementia with behavioral disturbance: Status: Acute Code(s): F03.918 - Unspecified dementia, unspecified severity, with other behavioral disturbance Plan 82 yo female, recovering from acute on chronic hypoxemic hypercarbic respiratory failure due to acute severe persistent asthma exacerbation, with dementia with behavioral disturbance, question of delirium. Plan: Continue current regime Collateral contact with family Monitor behavior and adjust medications as needed Increase Trazodone up to 50 mg po tid. On 03/23 Increase Seroquel up to 100 mg po tid. On 03/23. Later with lower Seroquel to 50 mg p.o. t.i.d. on 03/30. On 04/02 with lower Seroquel up to 25 mg p.o. t.i.d. Family meeting next week for discharge planning Reason for continued inpatient stay Substantial Risk for: inability to function, rapid decompensation and med/psych decompensation Time Spent With Patient Time: Total time managing care of this patient today __20__ minutes.
[2023-04-02] MEDS: QUEtiapine Fumarate 25 MG TABLET PO ×2 (16:08→21:05)
[2023-04-02 16:41] LABS: Glucose, Whole Blood 236 mg/dL (60-115)
[2023-04-02 18:00] VITALS: BP 130/76; PULSE 88; RESP 18; TEMP 36.7; O2SAT 96
[2023-04-02] MEDS: Donepezil HCl 10 MG TABLET PO (20:03)
[2023-04-02] MEDS: metFORMIN HCl ER 500 MG TAB.ER.24H 1000 MG PO (21:03)
[2023-04-02] MEDS: Sennosides/Docusate Sodium TABLET 1 TAB PO (21:04)
[2023-04-02 21:16] LABS: Glucose, Whole Blood 250 mg/dL (60-115)
[2023-04-02] MEDS: Acetaminophen 325 MG TABLET 650 MG PO (22:57)
[2023-04-02] MEDS: OLANZapine ODT 10 MG TAB.RAPDIS TRANSLINGU (22:58)
[2023-04-03 07:45] LABS: Glucose, Whole Blood 117 mg/dL (60-115)
[2023-04-03 07:54] VITALS: BP 151/75; PULSE 85; RESP 18; TEMP 35.8; O2SAT 94
[2023-04-03] MEDS: Fluticasone Propionate 100 MCG BLST.W.DEV 2 PUFF INHALE ×2 (08:42→21:16)
[2023-04-03] MEDS: Insulin Glargine,Hum.rec.anlog 100 UNIT/ML 10 ML VIAL 15 UNIT SUBCUT (08:43)
[2023-04-03] MEDS: Insulin Lispro 100 UNIT/ML 3 ML VIAL SUBCUT ×5 (08:43→21:27)
--- NOTE | 2023-04-03 11:13 | P.PNPSI_ITS ---
Subjective Subjective Date of Service: 04/03/23 Reason For Visit: Dementia w behavioral disturbance, psychosis Subjective Notes: Conditional Voluntary Interim History: The nursing staff reported the patient had been confused she has poor safety awareness she tried to self transfer by herself. [facility] point of care was 250 in the morning that she was court with insulin. She slept all night. On interview today in the morning she remains that she is feeling well she looks more awake and alert but later on the nurses reported that she had been on compliant with medications today in the morning. Mental Status Exam Mental Status Exam Patient Appearance: Well Grooomed and Appropriate Patient Orientation: Person and Situation Level of Consciousness: Awake and Appropriate Patient Behavior: Guarded and Passive Mood Description: Withdrawn Affect Description: Constricted Patient Cognition Impaired: Yes Ability to Follow Directions: Good Speech Pattern: Clear Hallucinations: None Delusions: Not Present Thought Process: Distracted and Evasive Thought Content: positive for [place] Judgement: Poor Diagnostics Vital Signs (24Hr): Vital Signs - 24 hr 04/02/23 18:00 04/03/23 07:54 Temperature 98.1 F 96.4 F L Pulse Rate 88 85 Respiratory Rate 18 18 Blood Pressure 130/76 151/75 H Pulse Oximetry 96 94 Oxygen Delivery Method Room Air Room Air BMI result Body Mass Index 49.9 Labs 03/24/23 08:18 03/31/23 08:08 Labs: Laboratory Results - last 48 hr 04/01/23 04/01/23 04/02/23 11:28 16:23 07:52 POC Glucose 128 H 113 137 H 04/02/23 04/02/23 04/02/23 11:17 16:25 21:03 POC Glucose 136 H 236 H 250 H 04/03/23 07:31 POC Glucose 117 H Medications Medications Current Medications Acetaminophen (Acetaminophen 325 Mg Tablet) 650 mg PO Q6H PRN PRN Reason: fever Last Admin: 04/02/23 22:57 Dose: 650 mg Al Hydroxide/Mg Hydroxide (Magnesium Hydrox/Alum Hydrox 30 Ml Oral.Susp) 30 ml PO Q6H PRN PRN Reason: Heartburn/Nausea Albuterol Sulfate (Albuterol Sulfate 90 Mcg 8 Gm Inhaler) 2 puff INHALE RQ6H PRN PRN Reason: wheeze Capsaicin (Capsaicin 0.025% Cream 60 Gm Tube) 1 appl TOPICAL DAILY PRN; Protocol PRN Reason: Pain, Moderate(Pain Scale 4-6) Last Admin: 03/25/23 20:35 Dose: 1 appl Donepezil HCl (Donepezil Hcl 10 Mg Tablet) 10 mg PO BEDTIME [facility] Last Admin: 04/02/23 20:03 Dose: 10 mg Enoxaparin Sodium (Enoxaparin Sodium 40 Mg/0.4 Ml Syringe) 40 mg SUBCUT Q24H [facility] Last Admin: 04/02/23 11:25 Dose: 40 mg Ergocalciferol (Ergocalciferol (Vitamin D2) 1,250 Mcg Capsule) 1,250 mcg PO Sa@1000 [facility] Last Admin: 04/03/23 10:19 Dose: Not Given Famotidine (Famotidine 20 Mg Tablet) 20 mg PO BID [facility] Last Admin: 04/03/23 10:17 Dose: Not Given Fluticasone Propionate (Fluticasone Propionate 100 Mcg Blst.W.Dev) 2 puff INHALE RBID [facility] Last Admin: 04/03/23 08:42 Dose: 2 puff Guaifenesin (Guaifenesin 100 Mg/5 Ml Liquid) 5 ml PO Q4H PRN PRN Reason: Cough Hydrochlorothiazide (Hydrochlorothiazide 12.5 Mg Tablet) 12.5 mg PO DAILY [facility]; Protocol Last Admin: 04/03/23 10:17 Dose: Not Given Insulin Glargine (Insulin Glargine,Hum.Rec.Anlog 100 Unit/Ml 10 Ml Vial) 15 unit SUBCUT DAILY [facility] Last Admin: 04/03/23 08:43 Dose: 15 unit Insulin Glargine (Insulin Glargine,Hum.Rec.Anlog 100 Unit/Ml 10 Ml Vial) 10 unit SUBCUT BEDTIME [facility] Last Admin: 04/01/23 22:26 Dose: 10 unit Insulin Human Lispro (Insulin Lispro 100 Unit/Ml 3 Ml Vial) 0 unit SUBCUT QIDACHS [facility]; Protocol Last Admin: 04/03/23 11:12 Dose: Not Given Insulin Human Lispro (Insulin Lispro 100 Unit/Ml 3 Ml Vial) 5 unit SUBCUT QIDACHS [facility] Last Admin: 04/03/23 08:43 Dose: 5 unit Lamotrigine (Lamotrigine 25 Mg Tablet) 25 mg PO DAILY@1200 [facility] Last Admin: 04/02/23 11:26 Dose: 25 mg Levothyroxine Sodium (Levothyroxine Sodium 25 Mcg Tablet) 25 mcg PO DAILY@0630 [facility] Last Admin: 04/03/23 10:17 Dose: Not Given Loratadine (Loratadine 10 Mg Tablet) 10 mg PO DAILY PRN PRN Reason: allergy symptoms Last Admin: 03/23/23 12:55 Dose: 10 mg Magnesium Hydroxide (Milk Of Magnesia 30 Ml Oral.Susp) 30 ml PO DAILY PRN PRN Reason: Constipation Magnesium Oxide (Magnesium Oxide 400 Mg Tablet) 800 mg PO BIDPC [facility] Last Admin: 04/03/23 10:17 Dose: Not Given Metformin HCl (Metformin Hcl Er 500 Mg Tab.Er.24h) 1,000 mg PO BEDTIME [facility] Last Admin: 04/02/23 21:03 Dose: 1,000 mg Metoprolol Succinate (Metoprolol Succinate Er 50 Mg Tab.Er.24h) 50 mg PO DAILY [facility]; Protocol Last Admin: 04/03/23 10:17 Dose: Not Given Multivitamins/Vitamin C (Multivitamin Tablet) 1 tab PO DAILY [facility] Last Admin: 04/03/23 10:17 Dose: Not Given Olanzapine (Olanzapine Odt 10 Mg Tab.Rapdis) 10 mg TRANSLINGU BID PRN PRN Reason: agitation Last Admin: 04/02/23 22:58 Dose: 10 mg Omeprazole (Omeprazole 40 Mg Capsule.Dr) 40 mg PO DAILY@629 [facility] Last Admin: 04/03/23 10:17 Dose: Not Given Pharmacy Consult (Consult Rx Perform Med Rec) 1 each MISCELLANE ONCE PRN PRN Reason: Consult order Polyethylene Glycol (Polyethylene Glycol 3350 17 Gm Powd.Pack) 17 gm PO DAILY [facility] Last Admin: 04/03/23 10:17 Dose: Not Given Prednisone (Prednisone 10 Mg Tablet) 10 mg PO DAILY [facility] Last Admin: 04/03/23 10:17 Dose: Not Given Quetiapine Fumarate (Quetiapine Fumarate 25 Mg Tablet) 25 mg PO TID [facility] Last Admin: 04/03/23 10:18 Dose: Not Given Senna/Docusate Sodium (Sennosides/Docusate Sodium Tablet) 1 tab PO BEDTIME [facility] Last Admin: 04/02/23 21:04 Dose: 1 tab Trazodone HCl (Trazodone Hcl 50 Mg Tablet) 50 mg PO BEDTIME [facility]X1 PRN PRN Reason: Insomnia Last Admin: 04/02/23 22:57 Dose: 50 mg Trazodone HCl (Trazodone Hcl 50 Mg Tablet) 50 mg PO TID [facility] Last Admin: 04/03/23 10:18 Dose: Not Given Allergies Allergies Allergy/AdvReac Type Severity Reaction Status Date / Time No Known Allergies Allergy Verified 03/02/23 16:08 Assessment & Plan Assessment & Plan (1) Dementia with behavioral disturbance: Status: Acute Code(s): F03.918 - Unspecified dementia, unspecified severity, with other behavioral disturbance Plan 82 yo female, recovering from acute on chronic hypoxemic hypercarbic respiratory failure due to acute severe persistent asthma exacerbation, with dementia with behavioral disturbance, question of delirium. Plan: Continue current regime Collateral contact with family Monitor behavior and adjust medications as needed Increase Trazodone up to 50 mg po tid. On 03/23 Increase Seroquel up to 100 mg po tid. On 03/23. Later with lower Seroquel to 50 mg p.o. t.i.d. on 03/30. On 04/02 with lower Seroquel up to 25 mg p.o. t.i.d. Family meeting next week for discharge planning Reason for continued inpatient stay Substantial Risk for: inability to function, rapid decompensation and med/psych decompensation Time Spent With Patient Time: Total time managing care of this patient today __20__ minutes.
[2023-04-03 11:14] LABS: Glucose, Whole Blood 116 mg/dL (60-115)
[2023-04-03] MEDS: Enoxaparin Sodium 40 MG/0.4 ML SYRINGE SUBCUT (11:44)
[2023-04-03 13:41] VITALS: BMI 49.8
--- NOTE | 2023-04-03 14:59 | PC.NURSE ---
Aisha has bene refusing oral medications today despite encouragement from staff. MD Chris notified.
[2023-04-03 16:36] LABS: Glucose, Whole Blood 128 mg/dL (60-115)
[2023-04-03 18:00] VITALS: BP 138/64; PULSE 81; RESP 14; TEMP 36.3; O2SAT 92
[2023-04-03 19:57] LABS: Glucose, Whole Blood 178 mg/dL (60-115)
[2023-04-03] MEDS: metFORMIN HCl ER 500 MG TAB.ER.24H 1000 MG PO (21:18)
[2023-04-03] MEDS: Acetaminophen 325 MG TABLET 650 MG PO (21:19)
[2023-04-03] MEDS: Insulin Glargine,Hum.rec.anlog 100 UNIT/ML 10 ML VIAL 10 UNIT SUBCUT (21:26)
[2023-04-03] MEDS: Donepezil HCl 10 MG TABLET PO (22:46)
[2023-04-03] MEDS: Famotidine 20 MG TABLET PO (22:47)
[2023-04-03] MEDS: Sennosides/Docusate Sodium TABLET 1 TAB PO (22:47)
[2023-04-03] MEDS: QUEtiapine Fumarate 25 MG TABLET PO (22:47)
[2023-04-04] MEDS: traZODone HCL 50 MG TABLET PO ×3 (00:39→21:58)
[2023-04-04 08:00] VITALS: BMI 50.0
[2023-04-04 08:48] VITALS: BP 126/62; PULSE 94; RESP 18; TEMP 36.2; O2SAT 96
[2023-04-04 08:50] LABS: Glucose, Whole Blood 140 mg/dL (60-115)
--- NOTE | 2023-04-04 08:59 | HO.PSYCHPN ---
Subjective Subjective Date of Service: 04/04/23 Reason For Visit: Dementia w behavioral disturbance, psychosis Subjective Notes: Conditional Voluntary Interim History: The nursing staff reported the patient has refused medications, she slammed the phone while she was talking with her daughter. She slept 8 hours and today in the morning she took her medications with a lot of encouragement. She has been pleasant and cooperative. On interview the patient remains pleasantly confused, advised her to come to be compliant with her medications. We started tapering of Seroquel slowly. Mental Status Exam Mental Status Exam Patient Appearance: Well Grooomed and Appropriate Patient Orientation: Person and Situation Level of Consciousness: Awake and Appropriate Patient Behavior: Passive Mood Description: Constricted Affect Description: Withdrawn and Labile Patient Cognition Impaired: Yes Ability to Follow Directions: Good Speech Pattern: Clear Hallucinations: None Delusions: Not Present Thought Process: Distracted and Slowed Thinking Thought Content: positive for [place] and positive for [place] of Content Judgement: Poor Diagnostics Vital Signs (24Hr): Vital Signs - 24 hr 04/03/23 18:00 Temperature 97.3 F Pulse Rate 81 Respiratory Rate 14 Blood Pressure 138/64 Pulse Oximetry 92 Oxygen Delivery Method Room Air BMI result Body Mass Index 49.8 Labs 03/24/23 08:18 03/31/23 08:08 Labs: Laboratory Results - last 48 hr 04/02/23 04/02/23 04/02/23 11:17 16:25 21:03 POC Glucose 136 H 236 H 250 H 04/03/23 04/03/23 04/03/23 07:31 11:10 16:32 POC Glucose 117 H 116 H 128 H 04/03/23 04/04/23 19:45 08:47 POC Glucose 178 H 140 H Medications Medications Current Medications Acetaminophen (Acetaminophen 325 Mg Tablet) 650 mg PO Q6H PRN PRN Reason: fever Last Admin: 04/03/23 21:19 Dose: 650 mg Al Hydroxide/Mg Hydroxide (Magnesium Hydrox/Alum Hydrox 30 Ml Oral.Susp) 30 ml PO Q6H PRN PRN Reason: Heartburn/Nausea Albuterol Sulfate (Albuterol Sulfate 90 Mcg 8 Gm Inhaler) 2 puff INHALE RQ6H PRN PRN Reason: wheeze Capsaicin (Capsaicin 0.025% Cream 60 Gm Tube) 1 appl TOPICAL DAILY PRN; Protocol PRN Reason: Pain, Moderate(Pain Scale 4-6) Last Admin: 03/25/23 20:35 Dose: 1 appl Donepezil HCl (Donepezil Hcl 10 Mg Tablet) 10 mg PO BEDTIME [facility] Last Admin: 04/03/23 22:46 Dose: 10 mg Enoxaparin Sodium (Enoxaparin Sodium 40 Mg/0.4 Ml Syringe) 40 mg SUBCUT Q24H [facility] Last Admin: 04/03/23 11:44 Dose: 40 mg Ergocalciferol (Ergocalciferol (Vitamin D2) 1,250 Mcg Capsule) 1,250 mcg PO Sa@1000 [facility] Last Admin: 04/03/23 10:19 Dose: Not Given Famotidine (Famotidine 20 Mg Tablet) 20 mg PO BID [facility] Last Admin: 04/03/23 22:47 Dose: 20 mg Fluticasone Propionate (Fluticasone Propionate 100 Mcg Blst.W.Dev) 2 puff INHALE RBID [facility] Last Admin: 04/03/23 21:16 Dose: 2 puff Guaifenesin (Guaifenesin 100 Mg/5 Ml Liquid) 5 ml PO Q4H PRN PRN Reason: Cough Hydrochlorothiazide (Hydrochlorothiazide 12.5 Mg Tablet) 12.5 mg PO DAILY [facility]; Protocol Last Admin: 04/03/23 10:17 Dose: Not Given Insulin Glargine (Insulin Glargine,Hum.Rec.Anlog 100 Unit/Ml 10 Ml Vial) 15 unit SUBCUT DAILY [facility] Last Admin: 04/03/23 08:43 Dose: 15 unit Insulin Glargine (Insulin Glargine,Hum.Rec.Anlog 100 Unit/Ml 10 Ml Vial) 10 unit SUBCUT BEDTIME [facility] Last Admin: 04/03/23 21:26 Dose: 10 unit Insulin Human Lispro (Insulin Lispro 100 Unit/Ml 3 Ml Vial) 0 unit SUBCUT QIDACHS [facility]; Protocol Last Admin: 04/03/23 21:26 Dose: 2 unit Insulin Human Lispro (Insulin Lispro 100 Unit/Ml 3 Ml Vial) 5 unit SUBCUT QIDACHS [facility] Last Admin: 04/03/23 21:27 Dose: 5 unit Lamotrigine (Lamotrigine 25 Mg Tablet) 25 mg PO DAILY@1200 [facility] Last Admin: 04/03/23 11:47 Dose: Not Given Levothyroxine Sodium (Levothyroxine Sodium 25 Mcg Tablet) 25 mcg PO DAILY@0630 [facility] Last Admin: 04/03/23 10:17 Dose: Not Given Loratadine (Loratadine 10 Mg Tablet) 10 mg PO DAILY PRN PRN Reason: allergy symptoms Last Admin: 03/23/23 12:55 Dose: 10 mg Magnesium Hydroxide (Milk Of Magnesia 30 Ml Oral.Susp) 30 ml PO DAILY PRN PRN Reason: Constipation Magnesium Oxide (Magnesium Oxide 400 Mg Tablet) 800 mg PO BIDPC [facility] Last Admin: 04/03/23 19:46 Dose: Not Given Metformin HCl (Metformin Hcl Er 500 Mg Tab.Er.24h) 1,000 mg PO BEDTIME [facility] Last Admin: 04/03/23 21:18 Dose: 1,000 mg Metoprolol Succinate (Metoprolol Succinate Er 50 Mg Tab.Er.24h) 50 mg PO DAILY [facility]; Protocol Last Admin: 04/03/23 10:17 Dose: Not Given Multivitamins/Vitamin C (Multivitamin Tablet) 1 tab PO DAILY [facility] Last Admin: 04/03/23 10:17 Dose: Not Given Olanzapine (Olanzapine Odt 10 Mg Tab.Rapdis) 10 mg TRANSLINGU BID PRN PRN Reason: agitation Last Admin: 04/02/23 22:58 Dose: 10 mg Omeprazole (Omeprazole 40 Mg Capsule.Dr) 40 mg PO DAILY@629 [facility] Last Admin: 04/03/23 10:17 Dose: Not Given Pharmacy Consult (Consult Rx Perform Med Rec) 1 each MISCELLANE ONCE PRN PRN Reason: Consult order Polyethylene Glycol (Polyethylene Glycol 3350 17 Gm Powd.Pack) 17 gm PO DAILY [facility] Last Admin: 04/03/23 10:17 Dose: Not Given Prednisone (Prednisone 10 Mg Tablet) 10 mg PO DAILY [facility] Last Admin: 04/03/23 10:17 Dose: Not Given Quetiapine Fumarate (Quetiapine Fumarate 25 Mg Tablet) 25 mg PO TID [facility] Last Admin: 04/03/23 22:47 Dose: 25 mg Senna/Docusate Sodium (Sennosides/Docusate Sodium Tablet) 1 tab PO BEDTIME [facility] Last Admin: 04/03/23 22:47 Dose: 1 tab Trazodone HCl (Trazodone Hcl 50 Mg Tablet) 50 mg PO BEDTIME MRX1 PRN PRN Reason: Insomnia Last Admin: 04/02/23 22:57 Dose: 50 mg Trazodone HCl (Trazodone Hcl 50 Mg Tablet) 50 mg PO TID [facility] Last Admin: 04/04/23 00:39 Dose: 50 mg Allergies Allergies Allergy/AdvReac Type Severity Reaction Status Date / Time No Known Allergies Allergy Verified 03/02/23 16:08 Assessment & Plan Assessment & Plan (1) Dementia with behavioral disturbance: Status: Acute Code(s): F03.918 - Unspecified dementia, unspecified severity, with other behavioral disturbance Plan 82 yo female, recovering from acute on chronic hypoxemic hypercarbic respiratory failure due to acute severe persistent asthma exacerbation, with dementia with behavioral disturbance, question of delirium. Plan: Continue current regime Collateral contact with family Monitor behavior and adjust medications as needed Increase Trazodone up to 50 mg po tid. On 03/23 Increase Seroquel up to 100 mg po tid. On 03/23. Later with lower Seroquel to 50 mg p.o. t.i.d. on 03/30. On 04/02 with lower Seroquel up to 25 mg p.o. t.i.d. Family meeting next week for discharge planning Reason for continued inpatient stay Substantial Risk for: inability to function, rapid decompensation and med/psych decompensation Time Spent With Patient Time: Total time managing care of this patient today __20__ minutes.
[2023-04-04] MEDS: Insulin Lispro 100 UNIT/ML 3 ML VIAL SUBCUT ×5 (09:20→16:53)
[2023-04-04] MEDS: Fluticasone Propionate 100 MCG BLST.W.DEV 2 PUFF INHALE ×2 (09:21→21:57)
[2023-04-04] MEDS: Insulin Glargine,Hum.rec.anlog 100 UNIT/ML 10 ML VIAL 15 UNIT SUBCUT (09:21)
[2023-04-04] MEDS: Metoprolol Succinate ER 50 MG TAB.ER.24H PO (09:22)
[2023-04-04] MEDS: Magnesium Oxide 400 MG TABLET 800 MG PO ×2 (09:22→16:53)
[2023-04-04] MEDS: Levothyroxine Sodium 25 MCG TABLET PO (09:22)
[2023-04-04] MEDS: Omeprazole 40 MG CAPSULE.DR PO (09:22)
[2023-04-04] MEDS: Multivitamin TABLET 1 TAB PO (09:22)
[2023-04-04] MEDS: Famotidine 20 MG TABLET PO ×2 (09:22→21:57)
[2023-04-04] MEDS: predniSONE 10 MG TABLET PO (09:22)
[2023-04-04] MEDS: hydroCHLOROthiazide 12.5 MG TABLET PO (09:22)
[2023-04-04] MEDS: QUEtiapine Fumarate 25 MG TABLET PO ×2 (09:22→21:58)
[2023-04-04] MEDS: polyethylene glycoL 3350 17 GM POWD.PACK PO (09:24)
[2023-04-04 11:11] LABS: Glucose, Whole Blood 196 mg/dL (60-115)
[2023-04-04] MEDS: Enoxaparin Sodium 40 MG/0.4 ML SYRINGE SUBCUT (11:36)
[2023-04-04] MEDS: lamoTRIgine 25 MG TABLET PO (11:36)
--- NOTE | 2023-04-04 15:28 | PC.NURSE ---
Held 1500 Seroquel and Trazodone due to sedation; MD Chris aware.
[2023-04-04 16:20] LABS: Glucose, Whole Blood 196 mg/dL (60-115)
[2023-04-04 18:00] VITALS: BP 137/66; PULSE 73; RESP 18; TEMP 36.2; O2SAT 94
[2023-04-04] MEDS: Donepezil HCl 10 MG TABLET PO (21:57)
[2023-04-04] MEDS: Sennosides/Docusate Sodium TABLET 1 TAB PO (21:58)
[2023-04-04] MEDS: metFORMIN HCl ER 500 MG TAB.ER.24H 1000 MG PO (21:58)
[2023-04-04 22:15] LABS: Glucose, Whole Blood 142 mg/dL (60-115)
[2023-04-04] MEDS: Insulin Glargine,Hum.rec.anlog 100 UNIT/ML 10 ML VIAL 10 UNIT SUBCUT (22:17)
[2023-04-05 08:07] LABS: Glucose, Whole Blood 110 mg/dL (60-115)
[2023-04-05] MEDS: Insulin Lispro 100 UNIT/ML 3 ML VIAL SUBCUT ×4 (08:15→16:35)
[2023-04-05] MEDS: Insulin Glargine,Hum.rec.anlog 100 UNIT/ML 10 ML VIAL 15 UNIT SUBCUT (08:15)
[2023-04-05 08:20] VITALS: BP 134/59; PULSE 76; RESP 20; TEMP 36.2; O2SAT 92
[2023-04-05] MEDS: hydroCHLOROthiazide 12.5 MG TABLET PO (08:20)
[2023-04-05] MEDS: Omeprazole 40 MG CAPSULE.DR PO (08:20)
[2023-04-05] MEDS: Famotidine 20 MG TABLET PO (08:21)
[2023-04-05] MEDS: QUEtiapine Fumarate 25 MG TABLET PO (08:21)
[2023-04-05] MEDS: Metoprolol Succinate ER 50 MG TAB.ER.24H PO (08:21)
[2023-04-05] MEDS: Magnesium Oxide 400 MG TABLET 800 MG PO ×2 (08:22→16:36)
[2023-04-05] MEDS: predniSONE 10 MG TABLET PO (08:22)
[2023-04-05] MEDS: Levothyroxine Sodium 25 MCG TABLET PO (08:22)
[2023-04-05] MEDS: traZODone HCL 50 MG TABLET PO (08:22)
[2023-04-05] MEDS: Multivitamin TABLET 1 TAB PO (08:22)
[2023-04-05] MEDS: polyethylene glycoL 3350 17 GM POWD.PACK PO (08:23)
[2023-04-05] MEDS: Fluticasone Propionate 100 MCG BLST.W.DEV 2 PUFF INHALE (09:28)
[2023-04-05] MEDS: lamoTRIgine 25 MG TABLET PO (11:47)
[2023-04-05 11:49] LABS: Glucose, Whole Blood 122 mg/dL (60-115)
[2023-04-05] MEDS: Enoxaparin Sodium 40 MG/0.4 ML SYRINGE SUBCUT (12:16)
[2023-04-05] MEDS: traZODone HCL 25 MG HALFTAB PO (15:26)
--- NOTE | 2023-04-05 16:08 | HO.PSYCHPN ---
Subjective Subjective Date of Service: 04/05/23 Reason For Visit: Dementia w behavioral disturbance, psychosis Subjective Notes: Conditional Voluntary Interim History: The nursing staff reported the patient has been pleasant and cooperative but sleepy during the day. She has been over-sedated. On interview the patient denies new symptoms she acknowledged over-sedation and she agreed to discontinue Seroquel since she is not delirious anymore. We decided also to lower trazodone up to 25 mg p.o. t.i.d. to target anxiety. Mental Status Exam Mental Status Exam Patient Appearance: Well Grooomed and Appropriate Patient Orientation: Person and Situation Level of Consciousness: Awake and Appropriate Patient Behavior: Guarded and Passive Mood Description: Withdrawn Affect Description: Calm Patient Cognition Impaired: Yes Ability to Follow Directions: Fair Speech Pattern: Clear Hallucinations: None Delusions: Not Present Thought Process: Illogical and Distracted Thought Content: positive for [place] Judgement: Fair Diagnostics Vital Signs (24Hr): Vital Signs - 24 hr 04/04/23 18:00 04/05/23 08:20 Temperature 97.1 F 97.1 F Pulse Rate 73 76 Respiratory Rate 18 20 Blood Pressure 137/66 134/59 L Pulse Oximetry 94 92 Oxygen Delivery Method Room Air Room Air BMI result Body Mass Index 50.0 Labs 03/24/23 08:18 03/31/23 08:08 Labs: Laboratory Results - last 48 hr 04/03/23 04/03/23 04/04/23 16:32 19:45 08:47 POC Glucose 128 H 178 H 140 H 04/04/23 04/04/23 04/04/23 11:01 16:16 21:55 POC Glucose 196 H 196 H 142 H 04/05/23 04/05/23 07:51 11:36 POC Glucose 110 122 H Medications Medications Current Medications Acetaminophen (Acetaminophen 325 Mg Tablet) 650 mg PO Q6H PRN PRN Reason: fever Last Admin: 04/03/23 21:19 Dose: 650 mg Al Hydroxide/Mg Hydroxide (Magnesium Hydrox/Alum Hydrox 30 Ml Oral.Susp) 30 ml PO Q6H PRN PRN Reason: Heartburn/Nausea Albuterol Sulfate (Albuterol Sulfate 90 Mcg 8 Gm Inhaler) 2 puff INHALE RQ6H PRN PRN Reason: wheeze Capsaicin (Capsaicin 0.025% Cream 60 Gm Tube) 1 appl TOPICAL DAILY PRN; Protocol PRN Reason: Pain, Moderate(Pain Scale 4-6) Last Admin: 03/25/23 20:35 Dose: 1 appl Donepezil HCl (Donepezil Hcl 10 Mg Tablet) 10 mg PO BEDTIME [facility] Last Admin: 04/04/23 21:57 Dose: 10 mg Enoxaparin Sodium (Enoxaparin Sodium 40 Mg/0.4 Ml Syringe) 40 mg SUBCUT Q24H [facility] Last Admin: 04/05/23 12:16 Dose: 40 mg Ergocalciferol (Ergocalciferol (Vitamin D2) 1,250 Mcg Capsule) 1,250 mcg PO Sa@1000 [facility] Last Admin: 04/03/23 10:19 Dose: Not Given Famotidine (Famotidine 20 Mg Tablet) 20 mg PO BID [facility] Last Admin: 04/05/23 08:21 Dose: 20 mg Fluticasone Propionate (Fluticasone Propionate 100 Mcg Blst.W.Dev) 2 puff INHALE RBID [facility] Last Admin: 04/05/23 09:28 Dose: 2 puff Guaifenesin (Guaifenesin 100 Mg/5 Ml Liquid) 5 ml PO Q4H PRN PRN Reason: Cough Hydrochlorothiazide (Hydrochlorothiazide 12.5 Mg Tablet) 12.5 mg PO DAILY [facility]; Protocol Last Admin: 04/05/23 08:20 Dose: 12.5 mg Insulin Glargine (Insulin Glargine,Hum.Rec.Anlog 100 Unit/Ml 10 Ml Vial) 15 unit SUBCUT DAILY [facility] Last Admin: 04/05/23 08:15 Dose: 15 unit Insulin Glargine (Insulin Glargine,Hum.Rec.Anlog 100 Unit/Ml 10 Ml Vial) 10 unit SUBCUT BEDTIME [facility] Last Admin: 04/04/23 22:17 Dose: 10 unit Insulin Human Lispro (Insulin Lispro 100 Unit/Ml 3 Ml Vial) 0 unit SUBCUT QIDACHS [facility]; Protocol Last Admin: 04/05/23 11:46 Dose: Not Given Insulin Human Lispro (Insulin Lispro 100 Unit/Ml 3 Ml Vial) 5 unit SUBCUT QIDACHS [facility] Last Admin: 04/05/23 11:46 Dose: 5 unit Lamotrigine (Lamotrigine 25 Mg Tablet) 25 mg PO DAILY@1200 [facility] Last Admin: 04/05/23 11:47 Dose: 25 mg Levothyroxine Sodium (Levothyroxine Sodium 25 Mcg Tablet) 25 mcg PO DAILY@30 [facility] Last Admin: 04/05/23 08:22 Dose: 25 mcg Loratadine (Loratadine 10 Mg Tablet) 10 mg PO DAILY PRN PRN Reason: allergy symptoms Last Admin: 03/23/23 12:55 Dose: 10 mg Magnesium Hydroxide (Milk Of Magnesia 30 Ml Oral.Susp) 30 ml PO DAILY PRN PRN Reason: Constipation Magnesium Oxide (Magnesium Oxide 400 Mg Tablet) 800 mg PO BIDPC [facility] Last Admin: 04/05/23 08:22 Dose: 800 mg Metformin HCl (Metformin Hcl Er 500 Mg Tab.Er.24h) 1,000 mg PO BEDTIME [facility] Last Admin: 04/04/23 21:58 Dose: 1,000 mg Metoprolol Succinate (Metoprolol Succinate Er 50 Mg Tab.Er.24h) 50 mg PO DAILY [facility]; Protocol Last Admin: 04/05/23 08:21 Dose: 50 mg Multivitamins/Vitamin C (Multivitamin Tablet) 1 tab PO DAILY [facility] Last Admin: 04/05/23 08:22 Dose: 1 tab Olanzapine (Olanzapine Odt 10 Mg Tab.Rapdis) 10 mg TRANSLINGU BID PRN PRN Reason: agitation Last Admin: 04/02/23 22:58 Dose: 10 mg Omeprazole (Omeprazole 40 Mg Capsule.Dr) 40 mg PO DAILY@30 [facility] Last Admin: 04/05/23 08:20 Dose: 40 mg Pharmacy Consult (Consult Rx Perform Med Rec) 1 each MISCELLANE ONCE PRN PRN Reason: Consult order Polyethylene Glycol (Polyethylene Glycol 3350 17 Gm Powd.Pack) 17 gm PO DAILY [facility] Last Admin: 04/05/23 08:23 Dose: 17 gm Prednisone (Prednisone 10 Mg Tablet) 10 mg PO DAILY [facility] Last Admin: 04/05/23 08:22 Dose: 10 mg Senna/Docusate Sodium (Sennosides/Docusate Sodium Tablet) 1 tab PO BEDTIME [facility] Last Admin: 04/04/23 21:58 Dose: 1 tab Trazodone HCl (Trazodone Hcl 50 Mg Tablet) 50 mg PO BEDTIME MRX1 PRN PRN Reason: Insomnia Last Admin: 04/02/23 22:57 Dose: 50 mg Trazodone HCl (Trazodone Hcl 25 Mg Halftab) 25 mg PO TID [facility] Last Admin: 04/05/23 15:26 Dose: 25 mg Allergies Allergies Allergy/AdvReac Type Severity Reaction Status Date / Time No Known Allergies Allergy Verified 03/02/23 16:08 Assessment & Plan Assessment & Plan (1) Dementia with behavioral disturbance: Status: Acute Code(s): F03.918 - Unspecified dementia, unspecified severity, with other behavioral disturbance Plan 82 yo female, recovering from acute on chronic hypoxemic hypercarbic respiratory failure due to acute severe persistent asthma exacerbation, with dementia with behavioral disturbance, question of delirium. Plan: Continue current regime Collateral contact with family Monitor behavior and adjust medications as needed Increase Trazodone up to 50 mg po tid. On 03/23. On April 05 will lower trazodone to 25 mg p.o. t.i.d. due to over-sedation. Increase Seroquel up to 100 mg po tid. On 03/23. Later with lower Seroquel to 50 mg p.o. t.i.d. on 03/30. On 04/02 with lower Seroquel up to 25 mg p.o. t.i.d. on April 05 we discontinue Seroquel. Family meeting next week for discharge planning Reason for continued inpatient stay Substantial Risk for: inability to function, rapid decompensation and med/psych decompensation Time Spent With Patient Time: Total time managing care of this patient today __20__ minutes.
[2023-04-05 16:26] LABS: Glucose, Whole Blood 206 mg/dL (60-115)
[2023-04-05 18:00] VITALS: BP 146/84; PULSE 71; RESP 16; TEMP 36.2; O2SAT 91
[2023-04-05 20:50] LABS: Glucose, Whole Blood 246 mg/dL (60-115)
[2023-04-06] MEDS: Omeprazole 40 MG CAPSULE.DR PO (06:38)
[2023-04-06] MEDS: Levothyroxine Sodium 25 MCG TABLET PO (06:38)
[2023-04-06 07:49] LABS: Glucose, Whole Blood 137 mg/dL (60-115)
[2023-04-06 07:50] VITALS: BP 145/70; PULSE 70; RESP 20; TEMP 36; O2SAT 92
[2023-04-06] MEDS: Insulin Lispro 100 UNIT/ML 3 ML VIAL SUBCUT ×7 (07:54→20:32)
[2023-04-06] MEDS: Insulin Glargine,Hum.rec.anlog 100 UNIT/ML 10 ML VIAL 15 UNIT SUBCUT (07:55)
[2023-04-06] MEDS: Magnesium Oxide 400 MG TABLET 800 MG PO ×2 (07:59→17:02)
[2023-04-06] MEDS: traZODone HCL 25 MG HALFTAB PO ×3 (08:00→20:26)
[2023-04-06] MEDS: predniSONE 10 MG TABLET PO (08:00)
[2023-04-06] MEDS: Famotidine 20 MG TABLET PO ×2 (08:00→20:25)
[2023-04-06] MEDS: Multivitamin TABLET 1 TAB PO (08:01)
[2023-04-06] MEDS: hydroCHLOROthiazide 12.5 MG TABLET PO (08:04)
[2023-04-06] MEDS: Metoprolol Succinate ER 50 MG TAB.ER.24H PO (08:04)
[2023-04-06] MEDS: Fluticasone Propionate 100 MCG BLST.W.DEV 2 PUFF INHALE ×2 (08:07→20:29)
[2023-04-06] MEDS: polyethylene glycoL 3350 17 GM POWD.PACK PO (08:16)
[2023-04-06 08:33] LABS: Creatinine Clr Calc Pharmacy 54.6; Estimated Glomerular Filt Rate > 60
[2023-04-06 11:21] LABS: Glucose, Whole Blood 155 mg/dL (60-115)
[2023-04-06] MEDS: lamoTRIgine 25 MG TABLET PO (11:24)
[2023-04-06] MEDS: Enoxaparin Sodium 40 MG/0.4 ML SYRINGE SUBCUT (11:25)
[2023-04-06 16:40] LABS: Glucose, Whole Blood 218 mg/dL (60-115)
--- NOTE | 2023-04-06 17:18 | P.PNPSI_ITS ---
Subjective Subjective Date of Service: 04/06/23 Reason For Visit: Dementia w behavioral disturbance, psychosis Subjective Notes: Conditional Voluntary Interim History: Pt presents as pleasant. She has been visible most of the day. She reports feeling well. She does report having some nausea. Pt denies SI/HI. She does know that she is being discharged tomorrow. Per nursing, no aggression towards self or others. Medication Compliance: Yes Side effects from medications: No Attending Groups: Intermittent Review of Systems Reports behavioral changes and Reports confusion Psychiatric: Reports behavioral changes, Reports confusion, Reports difficulty concentrating, Reports irritability, Reports mood swings, Reports paranoia, Reports visual hallucinations and Reports hallucinations Mental Status Exam Mental Status Exam Patient Appearance: Well Grooomed and Appropriate Patient Orientation: Person and Situation Level of Consciousness: Awake and Appropriate Patient Behavior: Appropriate and Cooperative Mood Description: Calm Affect Description: Constricted Patient Cognition Impaired: Yes Ability to Follow Directions: Good Speech Pattern: Clear Memory Description: Remote Impaired, Immediate Impaired, Episodic Impaired, Recent Impaired, Working Impaired and Semantic Impaired Diagnostics Vital Signs (24Hr): Vital Signs - 24 hr 04/05/23 18:00 04/06/23 07:50 Temperature 97.2 F 96.8 F Pulse Rate 71 70 Respiratory Rate 16 20 Blood Pressure 146/84 H 145/70 H Pulse Oximetry 91 L 92 Oxygen Delivery Method Room Air Room Air BMI result Body Mass Index 50.0 Labs 03/24/23 08:18 04/06/23 08:10 Labs: Laboratory Results - last 48 hr 04/04/23 04/05/23 04/05/23 21:55 07:51 11:36 Creatinine Estim Creat Clear Calc Estimated GFR POC Glucose 142 H 110 122 H 04/05/23 04/05/23 04/06/23 16:22 20:10 07:44 Creatinine Estim Creat Clear Calc Estimated GFR POC Glucose 206 H 246 H 137 H 04/06/23 04/06/23 04/06/23 08:10 11:18 16:37 Creatinine 0.83 Estim Creat Clear Calc 54.6 Estimated GFR > 60 POC Glucose 155 H 218 H Medications Medications Current Medications Acetaminophen (Acetaminophen 325 Mg Tablet) 650 mg PO Q6H PRN PRN Reason: fever Last Admin: 04/03/23 21:19 Dose: 650 mg Al Hydroxide/Mg Hydroxide (Magnesium Hydrox/Alum Hydrox 30 Ml Oral.Susp) 30 ml PO Q6H PRN PRN Reason: Heartburn/Nausea Albuterol Sulfate (Albuterol Sulfate 90 Mcg 8 Gm Inhaler) 2 puff INHALE RQ6H PRN PRN Reason: wheeze Capsaicin (Capsaicin 0.025% Cream 60 Gm Tube) 1 appl TOPICAL DAILY PRN; Protocol PRN Reason: Pain, Moderate(Pain Scale 4-6) Last Admin: 03/25/23 20:35 Dose: 1 appl Donepezil HCl (Donepezil Hcl 10 Mg Tablet) 10 mg PO BEDTIME [facility] Last Admin: 04/05/23 23:26 Dose: Not Given Enoxaparin Sodium (Enoxaparin Sodium 40 Mg/0.4 Ml Syringe) 40 mg SUBCUT Q24H [facility] Last Admin: 04/06/23 11:25 Dose: 40 mg Ergocalciferol (Ergocalciferol (Vitamin D2) 1,250 Mcg Capsule) 1,250 mcg PO Sa@1000 [facility] Last Admin: 04/03/23 10:19 Dose: Not Given Famotidine (Famotidine 20 Mg Tablet) 20 mg PO BID [facility] Last Admin: 04/06/23 08:00 Dose: 20 mg Fluticasone Propionate (Fluticasone Propionate 100 Mcg Blst.W.Dev) 2 puff INHALE RBID [facility] Last Admin: 04/06/23 08:07 Dose: 2 puff Guaifenesin (Guaifenesin 100 Mg/5 Ml Liquid) 5 ml PO Q4H PRN PRN Reason: Cough Hydrochlorothiazide (Hydrochlorothiazide 12.5 Mg Tablet) 12.5 mg PO DAILY [facility]; Protocol Last Admin: 04/06/23 08:04 Dose: 12.5 mg Insulin Glargine (Insulin Glargine,Hum.Rec.Anlog 100 Unit/Ml 10 Ml Vial) 15 unit SUBCUT DAILY [facility] Last Admin: 04/06/23 07:55 Dose: 15 unit Insulin Glargine (Insulin Glargine,Hum.Rec.Anlog 100 Unit/Ml 10 Ml Vial) 10 unit SUBCUT BEDTIME [facility] Last Admin: 04/05/23 23:27 Dose: Not Given Insulin Human Lispro (Insulin Lispro 100 Unit/Ml 3 Ml Vial) 0 unit SUBCUT QIDACHS [facility]; Protocol Last Admin: 04/06/23 16:44 Dose: 4 unit Insulin Human Lispro (Insulin Lispro 100 Unit/Ml 3 Ml Vial) 5 unit SUBCUT QIDACHS [facility] Last Admin: 04/06/23 16:44 Dose: 5 unit Lamotrigine (Lamotrigine 25 Mg Tablet) 25 mg PO DAILY@1200 [facility] Last Admin: 04/06/23 11:24 Dose: 25 mg Levothyroxine Sodium (Levothyroxine Sodium 25 Mcg Tablet) 25 mcg PO DAILY@0630 [facility] Last Admin: 04/06/23 06:38 Dose: 25 mcg Loratadine (Loratadine 10 Mg Tablet) 10 mg PO DAILY PRN PRN Reason: allergy symptoms Last Admin: 03/23/23 12:55 Dose: 10 mg Magnesium Hydroxide (Milk Of Magnesia 30 Ml Oral.Susp) 30 ml PO DAILY PRN PRN Reason: Constipation Magnesium Oxide (Magnesium Oxide 400 Mg Tablet) 800 mg PO BIDPC [facility] Last Admin: 04/06/23 17:02 Dose: 800 mg Metformin HCl (Metformin Hcl Er 500 Mg Tab.Er.24h) 1,000 mg PO BEDTIME [facility] Last Admin: 04/05/23 23:31 Dose: Not Given Metoprolol Succinate (Metoprolol Succinate Er 50 Mg Tab.Er.24h) 50 mg PO DAILY [facility]; Protocol Last Admin: 04/06/23 08:04 Dose: 50 mg Multivitamins/Vitamin C (Multivitamin Tablet) 1 tab PO DAILY [facility] Last Admin: 04/06/23 08:01 Dose: 1 tab Olanzapine (Olanzapine Odt 10 Mg Tab.Rapdis) 10 mg TRANSLINGU BID PRN PRN Reason: agitation Last Admin: 04/02/23 22:58 Dose: 10 mg Omeprazole (Omeprazole 40 Mg Capsule.Dr) 40 mg PO DAILY@629 [facility] Last Admin: 04/06/23 06:38 Dose: 40 mg Pharmacy Consult (Consult Rx Perform Med Rec) 1 each MISCELLANE ONCE PRN PRN Reason: Consult order Polyethylene Glycol (Polyethylene Glycol 3350 17 Gm Powd.Pack) 17 gm PO DAILY [facility] Last Admin: 04/06/23 08:16 Dose: 17 gm Senna/Docusate Sodium (Sennosides/Docusate Sodium Tablet) 1 tab PO BEDTIME [facility] Last Admin: 04/05/23 23:31 Dose: Not Given Trazodone HCl (Trazodone Hcl 50 Mg Tablet) 50 mg PO BEDTIME MRX1 PRN PRN Reason: Insomnia Last Admin: 04/02/23 22:57 Dose: 50 mg Trazodone HCl (Trazodone Hcl 25 Mg Halftab) 25 mg PO TID [facility] Last Admin: 04/06/23 14:21 Dose: 25 mg Allergies Allergies Allergy/AdvReac Type Severity Reaction Status Date / Time No Known Allergies Allergy Verified 03/02/23 16:08 Assessment & Plan Assessment & Plan (1) Dementia with behavioral disturbance: Status: Acute Code(s): F03.918 - Unspecified dementia, unspecified severity, with other behavioral disturbance Plan 82 yo female, recovering from acute on chronic hypoxemic hypercarbic respiratory failure due to acute severe persistent asthma exacerbation, with dementia with behavioral disturbance, question of delirium. Plan: 04/06 continue current medications. Note that prednisone 10mg po daily was supposed to be d/c on 03/19. d/c prednisone. Reason for continued inpatient stay Substantial Risk for: inability to function Time Spent With Patient Time: Total time managing care of this patient today ____ minutes.
[2023-04-06 20:01] LABS: Glucose, Whole Blood 165 mg/dL (60-115)
[2023-04-06 20:11] VITALS: BP 153/69; PULSE 66; RESP 18; TEMP 36.2; O2SAT 94
[2023-04-06] MEDS: Donepezil HCl 10 MG TABLET PO (20:25)
[2023-04-06] MEDS: metFORMIN HCl ER 500 MG TAB.ER.24H 1000 MG PO (20:25)
[2023-04-06] MEDS: Sennosides/Docusate Sodium TABLET 1 TAB PO (20:26)
[2023-04-06] MEDS: Insulin Glargine,Hum.rec.anlog 100 UNIT/ML 10 ML VIAL 10 UNIT SUBCUT (20:30)
[2023-04-07 06:00] VITALS: BP 153/65; PULSE 65; RESP 16; TEMP 36.1; O2SAT 91
[2023-04-07 07:59] LABS: Glucose, Whole Blood 102 mg/dL (60-115)
--- NOTE | 2023-04-07 08:10 | PM.PSYDC ---
DS: Providers Provider Date of Service: 04/07/23 Date of admission: 03/20/23 12:29 Date of discharge: 04/07/23 Primary care physician: Unknown Physician Consults: 03/20/23 13:41 Consult for Sitter Routine Reason for consultation: behaviour agitation Has provider been notified: No 03/22/23 09:00 Consult to Hospitalist Routine Comment: weekend coverage asks that pt be followed. Thanks Consulting Provider: Hospitalist Reason For Exam: Elevated blood sugar levels DS: Diagnosis Discharge Diagnosis (1) Dementia with behavioral disturbance: Status: Acute DS: Medications Discharge Medications Home Medications: Home Medications Medication Instructions Recorded Confirmed cholecalciferol (vitamin D3) 1,250 1,250 mcg PO QWEEK 08/08/20 03/02/23 mcg (50,000 unit) capsule Previous Rx's Medication Instructions Recorded ELECTRIC WHEELCHAIR #1 ea 01/12/22 metoprolol tartrate 50 mg tablet 50 mg PO DAILY #90 tabs 07/27/22 albuterol sulfate 90 mcg/actuation 2 puff inhalation Q6H PRN 08/10/22 aerosol inhaler shortness of breath or wheezing 30 days #8.5 grams blood sugar diagnostic #100 ea 09/11/22 coenzyme Q10 100 mg capsule (Co 100 mg PO DAILY 90 days #90 caps 09/11/22 Q-10) ergocalciferol (vitamin D2) 1,250 1,250 mcg PO QWEEK 90 days #13 caps 09/11/22 mcg (50,000 unit) capsule insulin lispro protamine-lispro 50 unit (0.5 mL) subcut BID 90 09/11/22 100 unit/mL (75-25) subcutaneous days #90 mL susp (Humalog Mix 75-25(U-100)Insuln) insulin syringe-needle U-100 1 mL ##60 09/11/22 31 gauge x 5/16 (BD Insulin Syringe Ultra-Fine) levothyroxine 25 mcg tablet 25 mcg PO DAILY #90 tabs 09/11/22 omeprazole 20 mg capsule,delayed 40 mg PO DAILY #180 caps 09/11/22 release loratadine 10 mg capsule 10 mg PO DAILY PRN allergy 09/13/22 symptoms 90 days #90 caps multivitamin 1 tab PO DAILY 90 days #90 tabs 09/13/22 fluticasone propionate 110 2 puff inhalation BID 30 days #12 03/07/23 mcg/actuation HFA aerosol inhaler grams (Flovent HFA) hydrochlorothiazide 12.5 mg tablet 12.5 mg PO DAILY 90 days #90 tabs 01/05/23 rosuvastatin 40 mg tablet 40 mg PO DAILY 90 days #90 tabs 01/27/23 tizanidine 4 mg tablet 4 mg PO BEDTIME PRN muscle 01/28/23 spasm/cramps 90 days #90 tabs blood sugar diagnostic (OneTouch #100 ea 01/29/23 Ultra Test strips) blood-glucose meter (OneTouch #1 ea 01/29/23 Ultra2 Meter kit) insulin syringe-needle U-100 1 mL #10 ea 01/29/23 31 gauge x 5/16 (BD Insulin Syringe Ultra-Fine) meloxicam 15 mg tablet 15 mg PO DAILY #30 tabs 02/02/23 famotidine 20 mg tablet 20 mg PO BID #180 tabs 02/12/23 mometasone 50 mcg/actuation nasal 2 spray intranasal DAILY #51 grams 02/18/23 spray donepezil 10 mg tablet 10 mg PO BEDTIME 90 days #90 tabs 03/03/23 HOSPITAL BED #1 ea 04/01/23 Mental Status Exam Mental Status Exam Patient Appearance: Well Grooomed and Appropriate Patient Orientation: Person and Situation Level of Consciousness: Awake and Appropriate Patient Behavior: Appropriate and Cooperative Mood Description: Calm Affect Description: Constricted Patient Cognition Impaired: Yes Ability to Follow Directions: Good Speech Pattern: Clear Hallucinations: None Delusions: Not Present Thought Process: Distracted and Evasive Thought Content: positive for [place] and positive for Poverty of Content Judgement: Fair Data Data Completed and Pending Completed studies during hospitalization [Text1]: 03/31/23 03/31/23 03/31/23 08:08 11:18 16:15 Creatinine 0.84 Estim Creat Clear Calc 54.1 Estimated GFR > 60 POC Glucose 165 H 314 H 03/31/23 04/01/23 04/01/23 20:14 07:49 11:28 Creatinine Estim Creat Clear Calc Estimated GFR POC Glucose 176 H 93 128 H 04/01/23 04/02/23 04/02/23 16:23 07:52 11:17 Creatinine Estim Creat Clear Calc Estimated GFR POC Glucose 113 137 H 136 H 04/02/23 04/02/23 04/03/23 16:25 21:03 07:31 Creatinine Estim Creat Clear Calc Estimated GFR POC Glucose 236 H 250 H 117 H 04/03/23 04/03/23 04/03/23 11:10 16:32 19:45 Creatinine Estim Creat Clear Calc Estimated GFR POC Glucose 116 H 128 H 178 H 04/04/23 04/04/23 04/04/23 08:47 11:01 16:16 Creatinine Estim Creat Clear Calc Estimated GFR POC Glucose 140 H 196 H 196 H 04/04/23 04/05/23 04/05/23 21:55 07:51 11:36 Creatinine Estim Creat Clear Calc Estimated GFR POC Glucose 142 H 110 122 H 04/05/23 04/05/23 04/06/23 16:22 20:10 07:44 Creatinine Estim Creat Clear Calc Estimated GFR POC Glucose 206 H 246 H 137 H 04/06/23 04/06/23 04/06/23 08:10 11:18 16:37 Creatinine 0.83 Estim Creat Clear Calc 54.6 Estimated GFR > 60 POC Glucose 155 H 218 H 04/06/23 04/07/23 19:40 07:46 Creatinine Estim Creat Clear Calc Estimated GFR POC Glucose 165 H 102 DS: Summary Hospital Course Hospital Course: The patient is an elderly [place] female with no prior psychiatric history. She initially was admitted into the hospital for pneumonia and she was intubated in ICU for several days. After being medically treated her condition improved but she was on delirium, agitated, nonsensical that require several times chemically restrain with antipsychotics IM. We were consulted by the medical team and the patient was unclear delirium. We decided to transfer to [facility] for treatment of her psychosis and agitation. On admission, the patient was severely confused and hypoactive, she was using oxygen but slowly she improved and her saturations improved to the point that she did not need oxygen and anymore. We start treating her with Seroquel 100 mg p.o. t.i.d. due to her agitation and nonsensical behavior. Also, we added trazodone initially 50 mg p.o. t.i.d. to target anxiety. After several DNR is of treatment, the patient's agitation improved, she was on one-to-one for safety for several days. Later on, we start tapering of Seroquel since the patient was over-sedated to the point that we tapered off completely. We also lowered her trazodone to 25 mg p.o. t.i.d. with for improvement of her anxiety. We had several family meetings regarding disposition since the patient has some remark cognitive impairment. The family is willing to take her back and taking care of her. Since there were no safety concerns discharge planning was discussed. The patient was discharged with no antipsychotics. Time spent discussing smoking cessation with patient: 3 to 10 minutes Status at Discharge Cognitive/behavioral status at discharge: Impaired at baseline Functional status at discharge: uses cane/walker Overall status at discharge: patient is back to baseline Time Spent with Patient Time attestation: Total time managing care of this patient today __30__ minutes. Time spent: Less than 30 minutes Discharge Plan Discharge Anticipated Discharge Date/Time: 04/07/23 10:00 Patient Disposition: Home, Self-Care Discharge Diagnosis: Delirium resolved Neuro cognitive impairment Referrals: Dr Jaime Pugh [Other] - 04/14/23 9:00 am (Appointment: 04/14/2023 @ 9am . ) Tavon Mckinney - Psychiatrist - [facility] [Other] - 05/05/23 2:45 pm (Appointment Scheduled for Telehealth- By Phone. Date: 05/05/2023 @ 2:45pm ) [facility] - Through [facility] [Other] - 1 Week Physician,Manny J [Primary Care Provider] - 1 Week Discharge Medications: New metoprolol succinate 50 mg Tablet Extended Release 24 Hr 50 mg PO DAILY 30 Days Qty: 30 0RF Protocol: Hold for SBP/HR < HOLD for SBP < : 90 HOLD for HR < : 60 lamotrigine 25 mg Tablet 25 mg PO DAILY@1200 30 Days Qty: 30 0RF polyethylene glycol 3350 17 gram Powder In Packet 17 g PO DAILY Qty: 30 0RF sennosides-docusate sodium [Senna Plus] 8.6-50 mg Tablet 1 tab PO BEDTIME Qty: 30 0RF metformin 500 mg Tablet Extended Release 24 Hr 1,000 mg PO BEDTIME 30 Days Qty: 60 0RF trazodone 50 mg tablet 25 mg PO TID Qty: 60 0RF Continued (DME) ELECTRIC WHEELCHAIR See Rx Instructions .Route .MEDSUPPLY Qty: 1 0RF Rx Instructions: As directed (DME) insulin syringe-needle U-100 [BD Insulin Syringe Ultra-Fine] 1 mL 31 gauge x 5/16 syringe See Rx Instructions .ROUTE .MEDSUPPLY Qty: 10 0RF Rx Instructions: use twice a day (DME) OneTouch Ultra Test Strip See Rx Instructions .Route Qty: 100 0RF Rx Instructions: twice a day (DME) HOSPITAL BED See Rx Instructions .Route .MEDSUPPLY Qty: 1 0RF Rx Instructions: As directed tizanidine 4 mg tablet 4 mg PO BEDTIME PRN (Reason: muscle spasm/cramps) 90 Days Qty: 90 1RF donepezil 10 mg tablet 10 mg PO BEDTIME 90 Days Qty: 90 1RF albuterol sulfate 90 mcg/actuation HFA aerosol inhaler 2 puff inhalation Q6H PRN (Reason: shortness of breath or wheezing) 30 Days Qty: 8.5 1RF rosuvastatin 40 mg tablet 40 mg PO DAILY 90 Days Qty: 90 1RF loratadine 10 mg capsule 10 mg PO DAILY PRN (Reason: allergy symptoms) 90 Days Qty: 90 3RF multivitamin Tablet 1 tab PO DAILY 90 Days Qty: 90 3RF levothyroxine 25 mcg tablet 25 mcg PO DAILY Qty: 90 1RF famotidine 20 mg tablet 20 mg PO BID Qty: 180 1RF mometasone 50 mcg/actuation spray,non-aerosol 2 spray intranasal DAILY Qty: 51 1RF omeprazole 20 mg capsule,delayed release(DR/EC) 40 mg PO DAILY Qty: 180 3RF hydrochlorothiazide 12.5 mg tablet 12.5 mg PO DAILY 90 Days Qty: 90 1RF coenzyme Q10 [Co Q-10] 100 mg capsule 100 mg PO DAILY 90 Days Qty: 90 3RF cholecalciferol (vitamin D3) 1,250 mcg (50,000 unit) capsule 1,250 mcg PO QWEEK Qty: 30 0RF Humalog Mix 75-25(U-100)Insuln 100 unit/mL (75-25) suspension 50 unit subcut BID 90 Days Qty: 90 1RF (DME) insulin syringe-needle U-100 [BD Insulin Syringe Ultra-Fine] 1 mL 31 gauge x 5/16 syringe See Rx Instructions .ROUTE .COMPLEX Qty: 60 6RF Dose Instruction: USE 1 MISCELLANEOUS 2 TIMES A DAY Rx Instructions: USE 1 MISCELLANEOUS 2 TIMES A DAY (DME) blood sugar diagnostic Strip See Rx Instructions .ROUTE .MEDSUPPLY Qty: 100 3RF Rx Instructions: As directed ergocalciferol (vitamin D2) 1,250 mcg (50,000 unit) capsule 1,250 mcg PO QWEEK 90 Days Qty: 13 3RF fluticasone propionate [Flovent HFA] 110 mcg/actuation HFA aerosol inhaler 2 puff inhalation BID 30 Days Qty: 12 5RF Discontinued metoprolol tartrate 50 mg tablet 50 mg PO DAILY Qty: 90 3RF (DME) blood-glucose meter [MeditechTouch Ultra2 Meter] Kit See Rx Instructions .Route Qty: 1 0RF Rx Instructions: twice a day meloxicam 15 mg tablet 15 mg PO DAILY Qty: 30 0RF Discharge Orders: Discharge Order (Routine); Ordered 03/20/23 Ordered By: Lia Doty Diet: Advance to usual diet Activity on Discharge: As tolerated Stand Alone Forms: Patient Portal Discharge page Care Plan Goals: Care plan goals achieved in this admission Health Concerns: Continue treatment with outpatient providers Plan of Treatment: Continue psychiatric treatment by outpatient providers Assessment: Elderly [place] female with a prior history of dementia was admitted initially for pneumonia that required ICU and intubation who later become very agitated. At this moment back at baseline, no need of antipsychotics at this moment. Safe to be discharged in the community
[2023-04-07] MEDS: Insulin Glargine,Hum.rec.anlog 100 UNIT/ML 10 ML VIAL 15 UNIT SUBCUT (08:26)
[2023-04-07] MEDS: Multivitamin TABLET 1 TAB PO (08:27)
[2023-04-07] MEDS: Fluticasone Propionate 100 MCG BLST.W.DEV 2 PUFF INHALE (08:27)
[2023-04-07] MEDS: Metoprolol Succinate ER 50 MG TAB.ER.24H PO (08:27)
[2023-04-07] MEDS: Famotidine 20 MG TABLET PO (08:28)
[2023-04-07] MEDS: traZODone HCL 25 MG HALFTAB PO (08:28)
[2023-04-07] MEDS: hydroCHLOROthiazide 12.5 MG TABLET PO (08:28)
[2023-04-07] MEDS: Magnesium Oxide 400 MG TABLET 800 MG PO (08:28)
[2023-04-07 11:55] LABS: Glucose, Whole Blood 172 mg/dL (60-115)
[2023-04-07] MEDS: Enoxaparin Sodium 40 MG/0.4 ML SYRINGE SUBCUT (12:08)
[2023-04-07] MEDS: Insulin Lispro 100 UNIT/ML 3 ML VIAL SUBCUT ×2 (12:08→12:09)
[2023-04-07] MEDS: lamoTRIgine 25 MG TABLET PO (12:08)
== END 2023-04-07 13:15 | disposition home or self-care (01) | DRG 884 ==
PROVIDERS: Physician Assistant; Psychiatry & Neurology Psychiatry; Student in an Organized Health Care Education/Training Program; Admitting Provider Clinical Nurse Specialist Psychiatric/Mental Health, Adult; Visit Provider Clinical Nurse Specialist Psychiatric/Mental Health, Adult
DX: F03.92 Unspecified dementia, unspecified severity, with psychotic disturbance (principal); F05 Delirium due to known physiological condition; J96.12 Chronic respiratory failure with hypercapnia; J96.11 Chronic respiratory failure with hypoxia; E11.9 Type 2 diabetes mellitus without complications; J45.50 Severe persistent asthma, uncomplicated; E78.00 Pure hypercholesterolemia, unspecified; Z87.891 Personal history of nicotine dependence; Z91.148 Patient's other noncompliance with medication regimen for other reason; Z79.4 Long term (current) use of insulin; Z79.51 Long term (current) use of inhaled steroids; Z79.84 Long term (current) use of oral hypoglycemic drugs; Z79.899 Other long term (current) drug therapy
CPT/HCPCS: 36415; 80048; 80053; 80061; 80076; 82565; 82947; 83036; 84443; 85025; 97116; 97162; J1650; J2060

== ENCOUNTER → 2023-04-15 10:35 | Outpatient (REF) | payer MEDICARE, MEDICAID, SELFPAY ==
--- NOTE | ~2023-04-15 | NM_ITS ---
EXAMINATION: NM THREE-PHASE BONE SCAN OF THE KNEES and planar bone scan of the whole body. CLINICAL INFORMATION: Presence of left artificial knee joint. COMPARISON: No previous bone scan is available for comparison. Radiographs of the bilateral knees dated 02/25/2023 are available for comparison. Several prior CT scans of the brain are available for comparison, the most recent dated 12/03/2018. TECHNIQUE: Initial rapid sequence images were obtained over the knees in the anterior and posterior projections during the bolus injection of 35 mCi Tc-99m MDP. Static images of the whole-body with multiple projections of the head, knees, and pelvis were then obtained 3.5 hours post injection. FINDINGS: Initial rapid sequence images show bilaterally symmetrical flow to the knees with no foci of abnormally increased flow at any site. The visualized vascular flow appears bilaterally symmetrical. Blood pool images obtained immediately following the flow study show no foci of abnormal blood pool activity but faintly visualized photopenic defects from bilateral total knee prosthesis. The delayed static images of the whole body show: In the head, there is a focus of moderately increased activity present in the right paranasal sinus region abutting the medial aspect of the right orbit. This appears separate from additional mild bilateral frontal skull activity that is likely due to hyperostosis frontalis interna. In the thoracic cage and upper extremities, there is mildly increased activity in the shoulders bilaterally, probably predominantly at the glenohumeral articulations. In the spine, there is mildly increased activity in the left posterior elements at L4-L5, probably due to facet arthropathy. In the pelvis, no significant abnormalities are present. In the lower extremities, photopenic defects from bilateral total knee prostheses are noted. There is only very mildly increased activity in the knees, predominantly in the medial femoral condyles and the tibial plateau bilaterally. Faint foci of increased activity are present in the ankles bilaterally and the proximal feet. No other definite bony abnormalities are noted. The urinary bladder and faint visualization of both kidneys are noted. NM/NM bone scan whole body IMPRESSION: 1. A nonspecific abnormality in the right paranasal sinus region is noted. This is probably related to a sinusitis but is nonspecific. This could be further characterized with a CT sinus series. 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 2. Bilateral well-healed total knee prostheses are noted with no abnormalities present on either side suspicious for prosthetic loosening, infection, or adjacent fracture. 3. A few additional mild nonspecific abnormalities are noted as described above and these are all likely arthritic or traumatic in etiology. None of these abnormalities is strongly suspicious for metastatic disease.
== END ==
LOC: HO.NUCMED 10:35
PROVIDERS: Visit Provider Orthopaedic Surgery
DX: Z96.653 Presence of artificial knee joint, bilateral (principal)
CPT/HCPCS: 78306; A9500; A9503

== ENCOUNTER 2023-04-20 08:47 | Outpatient (REF) | payer OTHER, SELFPAY ==
[2023-04-20 10:33] LABS: Venous Blood Gas Refer to POC result
[2023-04-20 10:40] LABS: VBG Base Excess 10.7 mmol/L; VBG HCO3 38 mmol/L (22-26); VBG pCO2 65 mmHg; VBG pH 7.37 (7.32-7.43); VBG pO2 30 mmHg
== END 2023-04-20 08:48 | disposition home or self-care (01) ==
LOC: HO.LAB 08:47
PROVIDERS: PCP Internal Medicine; Visit Provider Internal Medicine
DX: J44.9 Chronic obstructive pulmonary disease, unspecified (principal); J96.21 Acute and chronic respiratory failure with hypoxia; R41.3 Other amnesia; G47.33 Obstructive sleep apnea (adult) (pediatric)
CPT/HCPCS: 36415; 82803; 94618

== ENCOUNTER 2023-05-20 08:46 | Outpatient (REF) | payer OTHER, SELFPAY ==
--- NOTE | ~2023-05-20 | MM_ITS ---
EXAMINATION: MM SCREENING DIGITAL BREAST TOMOSYNTHESIS, BILATERAL CLINICAL INFORMATION: Screening. Asymptomatic. The lifetime risk of breast cancer based on the Tyrer-Cuzick Model is 0.9%. COMPARISON: Mammography: This study is compared with prior exams dating back to 2017. TECHNIQUE: Digital breast tomosynthesis is performed in both the craniocaudal and mediolateral oblique views along with computer-aided detection (CAD). Synthesized 2D images are generated from the tomosynthesis. FINDINGS: There are scattered areas of fibroglandular density (ACR BI-RADS breast composition Category b). There are no significant masses, abnormal calcifications, or other abnormalities. There are architectural changes in the periareolar region of the right breast from prior surgery for benign disease. MM/MM tomosynthesis screening BI IMPRESSION: No mammographic evidence of malignancy. ASSESSMENT: BI-RADS BI-RADS 2 - Benign Findings RECOMMENDATION: Routine annual mammography screening. 1 year F/U This examination should not preclude the clinical evaluation of a suspicious palpable abnormality. This patient's information was entered into a reminder system with a target due date for their next mammogram.
== END 2023-05-20 08:47 | disposition home or self-care (01) ==
LOC: HO.MAMMO 08:46
PROVIDERS: PCP Internal Medicine; Visit Provider Internal Medicine
DX: Z12.31 Encounter for screening mammogram for malignant neoplasm of breast (principal)
CPT/HCPCS: 77063; 77067

== ENCOUNTER → 2023-05-20 09:15 | Outpatient (BNV) | payer OTHER, SELFPAY | PROVIDERS: PCP Internal Medicine; Visit Provider Radiology Diagnostic Radiology | DX: Z12.31 Encounter for screening mammogram for malignant neoplasm of breast (principal) | CPT/HCPCS: 77063; 77067 ==

== ENCOUNTER 2023-05-24 11:31 | Outpatient (AMB) | payer OTHER, SELFPAY ==
--- NOTE | 2023-05-24 11:31 | MHC.OFFVIS ---
Intake Intake Visit Reasons: OV- bone scan follow up Intake Note: Aisha is a 82 year old female who presents today for a Bone Scan Follow Up. Allergies No Known Allergies Allergy (Verified 05/24/23 11:32) HPI OV- bone scan follow up HPI Details Aisha is an 82 year old woman who presents for a bone scan review in regards to her bilateral knee pain, L>R. She is S/P left TKA, DOS: 07/18/13 by me and right TKA [place] [address] Aldrich. She complains of increased pain and swelling in her left knee, present for ~9 months since a fall. Most of her pain is non-specific to her knee. She is unable to walk without pain or the use of a walker and feels very limited. Her daughter reports she often fees confused and like she is going to fall, even with support. Her daughter would like to have a wheelchair for long distances out of the house. She has a Hx of Dementia & psychosis, and spent ~6 weeks in the hospital following an asthma attack. She describes patellar subluxation occasionally when she stands from a seated position. COUNT INCLUDES THE [facility] Medical History (Updated 05/17/23 @ 13:13 by Edward Haile PA-C) Allergic rhinitis Asthma COPD (chronic obstructive pulmonary disease) Dementia with behavioral disturbance Diabetes mellitus Elevated TSH Essential hypertension GERD (gastroesophageal reflux disease) Memory impairment Morbid obesity with BMI of 45.0-49.9, adult SAVANNAH (obstructive sleep apnea) Osteoarthritis Osteoporosis Otitis externa Overactive bladder Pain in left knee Pure hypercholesterolemia Umbilical hernia without obstruction and without gangrene Vitamin D deficiency Surgical History History of arthroplasty of left knee History of arthroplasty of right knee History of hysterectomy History of total left knee replacement History of total right knee replacement Family History Father Diabetes Cancer Mother Diabetes Social History Household Members: None Housing: Apartment Do you presently have visiting nurse or other home services: Yes ([employer]PER[employer] HELPER through [employer]) Unable to assess alcohol history related to: Unable to respond and Unknown Alcohol intake: never Patient Tobacco Use Status: Former Tobacco user Quit Date: quit 20 years ago Tobacco use type: Cigarette Years Smoked: 50 e-Cigarette/Vaping Use: Never Used Second Hand Smoke Exposure: No service: No Current occupational status: disabled Sexual orientation: Straight/Heterosexual Cognitive needs: Yes (cane) Hearing needs: Yes Vision needs: Yes Review of Systems Const All systems reviewed & are unremarkable except as noted in HPI and below Physical Exam Const General: no acute distress and alert Orientation/consciousness: patient oriented x3 Neuro General: patient oriented x3 Extrem Other: Left Knee: Well-healed incision No erythema or warmth No TTP 0-130 deg motion no obvious patellar instability Psych Appearance: grossly normal Affect: normal affect Attitude: cooperative Results Reviewed Results Reviewed: I personally reviewed relevant bone scan information Bilateral well-healed total knee prostheses are noted with no abnormalities present on either side suspicious for prosthetic loosening, infection, or adjacent fracture. Assessment & Plan Assessment & Plan (1) History of total left knee replacement: Comment: 07/18/13 - Lisa Code(s): Z96.652 - Presence of left artificial knee joint Plan: This is an 82 year old woman primarily with left patellar instability and occasional pain. She has a Hx of bilateral TKAs, right [place] [address] Aldrich, and left in 07/18/13 by me. Her daughter often worries about falling despite use of an assistive walker. Her ROM is good and she has no tenderness on exam. She is not a good surgical candidate. Her bone scan was unremarkable for hardware loosening. I recommend she continue to ambulate with her walker when possible, and a patellar knee sleeve. She was fitted for a lateral bolster knee sleeve to wear as needed. She can follow up prn. (2) History of total right knee replacement: Comment: 12/2010 - Elinor Code(s): Z96.651 - Presence of right artificial knee joint Plan Scribed for Huber Gonzalez MD by Isaac Turner, medical claims analyst, on 05/24/23 at 11:55 AM, EST. Medications: Discontinued omeprazole 40 mg (2 x 20 mg) PO DAILY 180 caps 3RF hydrochlorothiazide 12.5 mg PO DAILY 90 days 90 tabs 1RF tizanidine 4 mg PO BEDTIME 90 days PRN 90 tabs 1RF muscle spasm/cramps famotidine 20 mg PO BID 180 tabs 1RF mometasone 50 mcg/actuation 2 sprays intranasal DAILY 51 grams 1RF donepezil 10 mg PO BEDTIME 90 days 90 tabs 1RF levothyroxine 25 mcg PO DAILY 90 tabs 1RF E03.9 - Hypothyroidism, unspecified, R79.89 - Other specified abnormal findings of blood chemistry insulin lispro protamin-lispro 100 unit/mL (75-25) 50 units (0.5 mL) subcut BID 90 days 90 mL 1RF E11.9 - Type 2 diabetes mellitus without complications, Z79.4 - correction (current) use of insulin coenzyme Q10 100 mg PO DAILY 90 days 90 caps 3RF rosuvastatin 40 mg PO DAILY 90 days 90 tabs 1RF Coding Level of Care Code Est Pt Level 4 (88359) Diagnoses History of total left knee replacement Z96.652 History of total right knee replacement Z96.651
== END 2023-05-24 12:17 | disposition home or self-care (01) ==
PROVIDERS: PCP Internal Medicine; Visit Provider Orthopaedic Surgery
DX: Z47.89 Encounter for other orthopedic aftercare (principal); Z96.652 Presence of left artificial knee joint; Z96.651 Presence of right artificial knee joint
CPT/HCPCS: 99214

== ENCOUNTER → 2023-05-24 11:31 | Outpatient (BNVA) | payer OTHER, SELFPAY | PROVIDERS: PCP Internal Medicine; Visit Provider Orthopaedic Surgery ==

== ENCOUNTER 2023-06-03 15:46 | Outpatient (AMB) | payer OTHER, SELFPAY ==
--- NOTE | 2023-06-03 15:51 | A.OFFVIS_ITS ---
Intake Vital Signs 06/03/23 15:52 Height 5 ft 3 in Weight 227 lb 1.218 oz BMI 40.2 BP 142/76 H Blood Pressure Location Lt brachial Position Sitting Pulse 82 Pulse Source Pulse Oximeter Pulse Oximetry (%) 95 Oxygen Delivery Method Room Air Intake Visit Reasons: Respiratory Failure Allergies No Known Allergies Allergy (Verified 06/03/23 16:33) Medication List - Last Reconciled 06/03/23 by Lester Singh MD acetazolamide 250 mg PO DAILY 90 days albuterol sulfate 90 mcg/actuation 2 puffs inhalation Q6H PRN 30 days albuterol sulfate 90 mcg/actuation (Ventolin HFA) 2 puffs inhalation Q6H PRN [bed pads As directed] blood sugar diagnostic As directed blood sugar diagnostic (Agile HealthTouch Ultra Test strips) USE JUSTO LO ROMARIODO DOS VECES AL PORTILLO blood-glucose meter twice a day chair, wheel (Wheel chair) As directed cholecalciferol (vitamin D3) 1,250 mcg PO QWEEK coenzyme Q10 (Co Q-10) 100 mg PO DAILY 90 days donepezil 10 mg PO BEDTIME 90 days [ELECTRIC WHEELCHAIR As directed] [EPP MATTRESS As directed] ergocalciferol (vitamin D2) 1,250 mcg PO QWEEK 90 days famotidine 20 mg PO BID fluticasone furoate-vilanterol 100-25 mcg/dose (Breo Ellipta) 1 inh inhalation DAILY 30 days fluticasone propionate 110 mcg/actuation (Flovent HFA) 2 puffs inhalation BID 30 days fluticasone propionate 100 mcg/actuation (Flovent Diskus) 2 inhalations inhalation BID [FRONT-WHEELED WALKER (large) As directed] [HOSPITAL BED As directed] hydrochlorothiazide 12.5 mg PO DAILY 90 days insulin lispro protamin-lispro 100 unit/mL (75-25) (Humalog Mix 75-25(U-100)Insuln) 50 units (0.5 mL) subcut BID 90 days insulin syringe-needle U-100 (BD Insulin Syringe Ultra-Fine) USE 1 MISCELLANEOUS 2 TIMES A DAY insulin syringe-needle U-100 (BD Insulin Syringe Ultra-Fine) use twice a day lamotrigine 25 mg PO DAILY@1200 30 days levothyroxine 25 mcg PO DAILY loratadine 10 mg PO DAILY PRN 90 days metformin ER 1,000 mg (2 x 500 mg) PO BEDTIME 30 days metoprolol succinate ER 50 mg See Protocol PO DAILY 30 days mometasone 50 mcg/actuation 2 sprays intranasal DAILY multivitamin 1 tab PO DAILY 90 days omeprazole 40 mg (2 x 20 mg) PO DAILY polyethylene glycol 3350 17 grams PO DAILY [RAISED TOILET SEAT As directed] rosuvastatin 40 mg PO DAILY 90 days sennosides-docusate sodium 8.6-50 mg (Senna Plus) 1 tab PO BEDTIME tizanidine 4 mg PO BEDTIME PRN 90 days [TRANFER CHAIR As directed] trazodone 25 mg (1/2 x 50 mg) PO TID Do you need a note to return to daycare/school/sports/work: No HPI Respiratory Failure HPI Details 82 YEARS OLD FEMALE GROSSLY OBESE, VERY PLEASANT, BROUGHT IN BY HER DAUGHTER FOR FOLLOW-UP. SINCE HER LAST VISIT SHE HAS BEEN DOING WELL. HAS ONLY OCCASIONAL COUGH AND WHEEZING AND USES ALBUTEROL ONCE IN A WHILE. SHE HAS BEEN ON ACETAZOLAMIDE 250 MG DAILY FOR HIS CHRONIC RESPIRATORY FAILURE. SHE DOES HAVE HISTORY OF OBSTRUCTIVE SLEEP APNEA BUT HAS NOT BEEN ABLE TO USE CPAP. THE GOAL WAS TO GET OVERNIGHT OXIMETRY RECORDING ENDS SEE IF SHE HAS SIGNIFICANT NOCTURNAL HYPOXEMIA, SO THAT SHE COULD BE TREATED WITH. O2 SUPPLEMENTATION HOWEVER UP UNTIL NOW THE OVERNIGHT OXIMETRY RECORDING HAS NOT BEEN DONE. THE DAUGHTER DOES HAVE THE OXIMETER, AND WILL BE DOING DO OVERNIGHT OXIMETRY RECORDING TONIGHT. TALKING TO THE PATIENT SHE IS HAPPY AND FEELS GOOD, ACCORDING TO THE DAUGHTER SHE DOES HAVE SOME COUGH AND DIFFICULTY IN BREATHING AT NIGHT, AND NEEDS THE HAD SIDE OF THE BED TO BE PROPPED UP. [facility] Medical History (Updated 06/03/23 @ 16:44 by Lester Singh MD) Allergic rhinitis Asthma COPD (chronic obstructive pulmonary disease) Dementia with behavioral disturbance Diabetes mellitus Elevated TSH Essential hypertension GERD (gastroesophageal reflux disease) Memory impairment Morbid obesity with BMI of 45.0-49.9, adult SAVANNAH (obstructive sleep apnea) Osteoarthritis Osteoporosis Otitis externa Overactive bladder Pain in left knee Pure hypercholesterolemia Respiratory failure with hypercapnia Umbilical hernia without obstruction and without gangrene Vitamin D deficiency Surgical History History of arthroplasty of left knee History of arthroplasty of right knee History of hysterectomy History of total left knee replacement History of total right knee replacement Family History Father Diabetes Cancer Mother Diabetes Social History Household Members: None Housing: Apartment Do you presently have visiting nurse or other home services: Yes ([employer]OSS[employer] through [employer]) Unable to assess alcohol history related to: Unable to respond and Unknown Alcohol intake: never Patient Tobacco Use Status: Former Tobacco user Quit Date: quit 20 years ago Tobacco use type: Cigarette Years Smoked: 50 e-Cigarette/Vaping Use: Never Used Second Hand Smoke Exposure: No service: No Current occupational status: disabled Sexual orientation: Straight/Heterosexual Cognitive needs: Yes (cane) Hearing needs: Yes Vision needs: Yes Review of Systems Const Details: THE PATIENT DOES NOT WHY BETY ANY COMPLAINT. ACCORDING TO THE DAUGHTER SHE DOES HAVE MILD INTERMITTENT COUGH, NO RESPIRATORY DISTRESS. Unobtainable due to mental status and Other (PATIENT IS, ON ABLE TO ANSWER QUESTIONS. ) Physical Exam Vital Signs: Last Vital Signs Pulse 82 06/03/23 15:52 BP 142/76 H 06/03/23 15:52 Pulse Ox 95 06/03/23 15:52 Oxygen Delivery Method Room Air 06/03/23 15:52 BMI result Body Mass Index 40.2 Last Vital Signs Temp 98.7 F 03/20/23 07:27 Pulse 87 03/20/23 07:27 Resp 20 03/20/23 07:27 BP 108/62 03/20/23 07:27 Pulse Ox 93 03/20/23 07:27 O2 Del Method Nasal Cannula 03/20/23 07:27 O2 Flow Rate 2 03/20/23 07:27 FiO2 35 03/11/23 08:00 Oxygen Flow Rate 6 03/02/23 16:32 BMI result Body Mass Index 50.9 Const General: comfortable, no acute distress, alert and awake Orientation/consciousness: oriented to person and oriented to place HEENT Head: Yes normal to inspection General nose exam: No nasal polyps present and No nasal discharge present Face and sinus: Yes sinuses nontender Mouth: oropharynx abnormals (VERY NARROW AND CROWDED, MALLAMPATI SCALE 4) Throat: Yes posterior oropharynx normal Eyes General: appearance normal, both eyes and all related structures Neck Neck: Yes normal visual inspection, Yes no lymphadenopathy, Yes trachea midline, Yes no JVD and Yes other (NECK CIRCUMFERENCE 17-1/2 INCH) Thyroid: Thyroid normal Chest Chest palpation & inspection: normal inspection of the chest, normal palpation of entire chest wall and no tenderness Resp Other: PERCUSSION NOTE RESONANT, BREATH SOUNDS ARE SLIGHTLY DISTANT WITH PROLONGED EXPIRATORY PHASE. BREATH. SOUNDS DIMINISHED OVER THE BASILAR AREAS NO WHEEZES RHONCHI OR CREPITATIONS ARE HEARD. Cardio Palpation: normal PMI Rate: regular rate Rhythm: regular rhythm Heart sounds: no gallops and no murmurs GI Palpation (GI): Soft to palpation, nontender, No hepatosplenomegaly present and no masses Auscultation: normal bowel sounds Back/Spine/Pelvis Thoracic/Lumbar Spine: thoracic and lumbar spine normal to inspection and thoraco-lumbar ROM limited Skin General skin exam: no rashes or lesions noted and dry skin Neuro General: oriented to person, oriented to place, No gait normal (GAIT IS IMPAIRED AND UNSTABLE. SHE NEEDS WHEELED WALKER TO WALK) and no focal motor deficits Cranial nerves: Yes CN's II-XII intact bilaterally Extrem General: Yes normal to inspection, Yes no clubbing, cyanosis or edema and Yes no calf tenderness Psych Mental Status: mental status grossly normal Speech and movement: No Normal speech and movement present (DOES NOT VERBALIZE.) Assessment & Plan Assessment & Plan (1) COPD (chronic obstructive pulmonary disease): Comment: CLINICALLY THIS PATIENT HAS CHRONIC BRONCHIAL ASTHMA/COPD. SHE PROBABLY ALSO HAVE SOME RESTRICTIVE LUNG DISEASE. TX: SHE IS DOING MUCH BETTER WITH USE OF BREO 100-25 1 INHALATION DAILY. USES PROAIR ONLY ONCE IN A WHILE, AND HAS NOT NEEDED MUCH SINCE SHE IS USING BREO. Code(s): J44.9 - Chronic obstructive pulmonary disease, unspecified (2) Respiratory failure with hypercapnia: Comment: SHE HAD MILD HYPOXEMIA AND HYPERCAPNIA WHEN HOSPITALIZED. ON HER LAST VISIT HER O2 SAT AT REST AND WITH 6 MINUTES WALKING WAS NOTED TO BE NORMAL. SHE HAS BEEN ON DIAMOX 250 MG DAILY FOR MILD HYPERCAPNIA, IT SEEMS TO BE WELL CONTROLLED. OVERNIGHT OXIMETRY RECORDING IS STILL PENDING AND WOULD BE DONE IN THE NEXT 1 OR 2 DAYS. THEN WILL DECIDE IF SHE WILL BENEFIT FROM O2 SUPPLEMENTATION AT NIGHT. Code(s): J96.92 - Respiratory failure, unspecified with hypercapnia (3) SAVANNAH (obstructive sleep apnea): Comment: PATIENT DOES HAVE HISTORY OF OBSTRUCTIVE SLEEP APNEA SINCE 2013 WHEN SHE HAD THE SLEEP STUDY. BUT SHE HAS NOT BEEN ABLE TO USE THE CPAP. THE PATIENT WILL NOT USE CPAP SO WE DOWN NEED TO DO ANY SLEEP STUDY. I ADVISED THE DAUGHTER TO KEEP HER HEAD PROPPED UP DURING SLEEP WITH LARGE PILLOW, OR MAY USE 6 BLOCKS UNDER THE HEAD SIDE OF THE BED . Code(s): G47.33 - Obstructive sleep apnea (adult) (pediatric) Medications: Discontinued 2 omeprazole 40 mg (2 x 20 mg) PO DAILY 180 caps 3RF hydrochlorothiazide 12.5 mg PO DAILY 90 days 90 tabs 1RF tizanidine 4 mg PO BEDTIME 90 days PRN 90 tabs 1RF muscle spasm/cramps famotidine 20 mg PO BID 180 tabs 1RF mometasone 50 mcg/actuation 2 sprays intranasal DAILY 51 grams 1RF donepezil 10 mg PO BEDTIME 90 days 90 tabs 1RF levothyroxine 25 mcg PO DAILY 90 tabs 1RF E03.9 - Hypothyroidism, unspecified, R79.89 - Other specified abnormal findings of blood chemistry insulin lispro protamin-lispro 100 unit/mL (75-25) 50 units (0.5 mL) subcut BID 90 days 90 mL 1RF E11.9 - Type 2 diabetes mellitus without complications, Z79.4 - group home (current) use of insulin coenzyme Q10 100 mg PO DAILY 90 days 90 caps 3RF rosuvastatin 40 mg PO DAILY 90 days 90 tabs 1RF Coding Level of Care Code Est Pt Level 3 (55429) Diagnoses COPD (chronic obstructive pulmonary disease) J44.9 Respiratory failure with hypercapnia J96.92 SAVANNAH (obstructive sleep apnea) G47.33
[2023-06-03 15:52] VITALS: BP 142/76; PULSE 82; O2SAT 95; BMI 40.2
== END 2023-06-03 16:17 | disposition home or self-care (01) ==
PROVIDERS: PCP Internal Medicine; Visit Provider Internal Medicine
DX: J44.9 Chronic obstructive pulmonary disease, unspecified (principal); J96.92 Respiratory failure, unspecified with hypercapnia; G47.33 Obstructive sleep apnea (adult) (pediatric)
CPT/HCPCS: 99213

== ENCOUNTER → 2023-06-03 15:46 | Outpatient (BNVA) | payer OTHER, SELFPAY | PROVIDERS: PCP Internal Medicine; Visit Provider Internal Medicine | DX: J45.909 Unspecified asthma, uncomplicated (principal); G47.33 Obstructive sleep apnea (adult) (pediatric); J44.9 Chronic obstructive pulmonary disease, unspecified; J96.21 Acute and chronic respiratory failure with hypoxia ==

== ENCOUNTER 2023-09-01 15:42 | Outpatient (AMB) | payer OTHER, SELFPAY ==
[2023-09-01 15:48] VITALS: BP 120/68; PULSE 75; O2SAT 94; BMI 39.3
--- NOTE | 2023-09-01 15:48 | MHC.OFFVIS ---
Intake Vital Signs 09/01/23 15:48 Height 5 ft 3 in Weight 222 lb BMI 39.3 BP 120/68 Blood Pressure Location Lt brachial Position Sitting Pulse 75 Pulse Source Pulse Oximeter Pulse Oximetry (%) 94 Oxygen Delivery Method Room Air Intake Visit Reasons: Respiratory Failure Intake Note: pt is here for follow up and states she will be traveling and would like to make sure her lungs are clear. pt not taking medication, she just doesn't want too. Development Technician Required: No Allergies No Known Allergies Allergy (Verified 09/01/23 16:11) Medication List - Last Reconciled 09/01/23 by Lester Singh MD acetazolamide 250 mg PO DAILY 90 days albuterol sulfate 90 mcg/actuation (Ventolin HFA) 2 puffs inhalation Q6H PRN [bed pads As directed] blood sugar diagnostic As directed blood sugar diagnostic (OneTouch Ultra Test strips) USE JUSTO LO INDICADO DOS VECES AL PORTILLO blood-glucose meter twice a day chair, wheel (Wheel chair) As directed cholecalciferol (vitamin D3) 1,250 mcg PO QWEEK coenzyme Q10 (Co Q-10) 100 mg PO DAILY 90 days donepezil 10 mg PO BEDTIME 90 days [ELECTRIC WHEELCHAIR As directed] [EPP MATTRESS As directed - FOR INDEFINITE USE] ergocalciferol (vitamin D2) 1,250 mcg PO QWEEK 90 days famotidine 20 mg PO BID fluticasone furoate-vilanterol 100-25 mcg/dose (Breo Ellipta) 1 ea PO DAILY [FRONT-WHEELED WALKER (large) As directed] [HOSPITAL BED As directed] hydrochlorothiazide 12.5 mg PO DAILY 90 days insulin lispro protamin-lispro 100 unit/mL (75-25) (Humalog Mix 75-25(U-100)Insuln) 50 units (0.5 mL) subcut BID 90 days insulin syringe-needle U-100 (BD Insulin Syringe Ultra-Fine) USE 1 MISCELLANEOUS 2 TIMES A DAY insulin syringe-needle U-100 (BD Insulin Syringe Ultra-Fine) use twice a day lamotrigine 25 mg PO DAILY@1200 30 days levothyroxine 25 mcg PO DAILY [LIGHT TRANSFER WHEELCHAIR As directed] loratadine 10 mg PO DAILY PRN 90 days metformin ER 1,000 mg (2 x 500 mg) PO BEDTIME 30 days metoprolol succinate ER 50 mg See Protocol PO DAILY 30 days mometasone 50 mcg/actuation 2 sprays intranasal DAILY multivitamin 1 tab PO DAILY 90 days omeprazole 40 mg (2 x 20 mg) PO DAILY polyethylene glycol 3350 17 grams PO DAILY [RAISED TOILET SEAT As directed] rosuvastatin 40 mg PO DAILY 90 days sennosides-docusate sodium 8.6-50 mg (Senna Plus) 1 tab PO BEDTIME tizanidine 4 mg PO BEDTIME PRN 90 days trazodone 25 mg (1/2 x 50 mg) PO TID Do you need a note to return to daycare/school/sports/work: No HPI Respiratory Failure HPI Details This 82 years old female, grossly obese, has diagnosis of SAVANNAH/HYPOVENTILATION SYNDROME, AND COPD. Because of nocturnal hypoxemia she was prescribed oxygen, but she insisted on returning the oxygen equipment and back, saying that she just does not feel good when she uses oxygen. She remains pleasantly confused and in the daughter has difficulty in giving her medications. She even does not use Breo which she is supposed to use only 1 inhalation daily . His also supposed to be on acetazolamide 250 mg daily which she is not taking. She walks into the office with walker, she is alert but somewhat confused, seems to be quite happy and in no distress. [facility] Medical History Respiratory failure with hypercapnia SAVANNAH (obstructive sleep apnea) COPD (chronic obstructive pulmonary disease) Dementia with behavioral disturbance Asthma Otitis externa Elevated TSH Pain in left knee Morbid obesity with BMI of 45.0-49.9, adult Overactive bladder Umbilical hernia without obstruction and without gangrene Osteoarthritis Memory impairment Vitamin D deficiency Allergic rhinitis Osteoporosis GERD (gastroesophageal reflux disease) Pure hypercholesterolemia Essential hypertension Diabetes mellitus Surgical History History of total left knee replacement History of total right knee replacement History of hysterectomy History of arthroplasty of left knee History of arthroplasty of right knee Family History Father Diabetes Cancer Mother Diabetes Social History Household Members: None Housing: Apartment Do you presently have visiting nurse or other home services: Yes (EQUINE INTERN through [employer]) Unable to assess alcohol history related to: Unable to respond and Unknown Alcohol intake: never Patient Tobacco Use Status: Former Tobacco user Quit Date: quit 20 years ago Tobacco use type: Cigarette Years Smoked: 50 e-Cigarette/Vaping Use: Never Used Second Hand Smoke Exposure: No service: No Current occupational status: disabled Sexual orientation: Straight/Heterosexual Cognitive needs: Yes (cane) Hearing needs: Yes Vision needs: Yes Review of Systems Const Details: THE PATIENT DOES NOT WHY BETY ANY COMPLAINT. ACCORDING TO THE DAUGHTER SHE DOES HAVE MILD INTERMITTENT COUGH, NO RESPIRATORY DISTRESS. Unobtainable due to mental status and Other (PATIENT IS, ON ABLE TO ANSWER QUESTIONS. ) Physical Exam Vital Signs: Last Vital Signs Pulse 75 09/01/23 15:48 BP 120/68 09/01/23 15:48 Pulse Ox 94 09/01/23 15:48 Oxygen Delivery Method Room Air 09/01/23 15:48 BMI result Body Mass Index 39.3 Last Vital Signs Temp 98.7 F 03/20/23 07:27 Pulse 87 03/20/23 07:27 Resp 20 03/20/23 07:27 BP 108/62 03/20/23 07:27 Pulse Ox 93 03/20/23 07:27 O2 Del Method Nasal Cannula 03/20/23 07:27 O2 Flow Rate 2 03/20/23 07:27 FiO2 35 03/11/23 08:00 Oxygen Flow Rate 6 03/02/23 16:32 BMI result Body Mass Index 50.9 Const General: comfortable, no acute distress, alert and awake Orientation/consciousness: oriented to person and oriented to place HEENT Head: Yes normal to inspection General nose exam: No nasal polyps present and No nasal discharge present Face and sinus: Yes sinuses nontender Mouth: oropharynx abnormals (VERY NARROW AND CROWDED, MALLAMPATI SCALE 4) Throat: Yes posterior oropharynx normal Eyes General: appearance normal, both eyes and all related structures Neck Neck: Yes normal visual inspection, Yes no lymphadenopathy, Yes trachea midline, Yes no JVD and Yes other (NECK CIRCUMFERENCE 17-1/2 INCH) Thyroid: Thyroid normal Chest Chest palpation & inspection: normal inspection of the chest, normal palpation of entire chest wall and no tenderness Resp Other: PERCUSSION NOTE RESONANT, BREATH SOUNDS ARE SLIGHTLY DISTANT WITH PROLONGED EXPIRATORY PHASE. BREATH. SOUNDS DIMINISHED OVER THE BASILAR AREAS NO WHEEZES RHONCHI OR CREPITATIONS ARE HEARD. Cardio Palpation: normal PMI Rate: regular rate Rhythm: regular rhythm Heart sounds: no gallops and no murmurs GI Palpation (GI): Soft to palpation, nontender, No hepatosplenomegaly present and no masses Auscultation: normal bowel sounds Back/Spine/Pelvis Thoracic/Lumbar Spine: thoracic and lumbar spine normal to inspection and thoraco-lumbar ROM limited Skin General skin exam: no rashes or lesions noted and dry skin Neuro General: oriented to person, oriented to place, No gait normal (GAIT IS IMPAIRED AND UNSTABLE. SHE NEEDS WHEELED WALKER TO WALK) and no focal motor deficits Cranial nerves: Yes CN's II-XII intact bilaterally Extrem General: Yes normal to inspection, Yes no clubbing, cyanosis or edema and Yes no calf tenderness Psych Mental Status: mental status grossly normal Speech and movement: No Normal speech and movement present (DOES NOT VERBALIZE.) Assessment & Plan Assessment & Plan (1) COPD (chronic obstructive pulmonary disease): Comment: CLINICALLY THIS PATIENT HAS CHRONIC BRONCHIAL ASTHMA/COPD. SHE PROBABLY ALSO HAVE SOME RESTRICTIVE LUNG DISEASE. TX: SHE SHOULD BE USING BREO- 100-25 1 INHALATION DAILY, WHICH IS THE MOST CONVENIENT FOR HER TO USE. I TRY TO CONVINCE HER THAT IT IS GOOD FOR HER TO USE IT REGULARLY EVERY DAY, AND SHE HAS AGREED TO ABIDE BY THAT. USE PROAIR ONLY ONCE IN A WHILE, AND HAS NOT NEEDED MUCH SINCE SHE IS USING BREO. Code(s): J44.9 - Chronic obstructive pulmonary disease, unspecified (2) SAVANNAH (obstructive sleep apnea): Comment: PATIENT DOES HAVE HISTORY OF OBSTRUCTIVE SLEEP APNEA SINCE 2013 WHEN SHE HAD THE SLEEP STUDY. BUT SHE HAS NOT BEEN ABLE TO USE THE CPAP. Code(s): G47.33 - Obstructive sleep apnea (adult) (pediatric) (3) Respiratory failure with hypercapnia: Comment: SHE HAD MILD HYPOXEMIA AND HYPERCAPNIA WHEN HOSPITALIZED. O2 SAT DURING 6 MINUTES WALKING WAS NOTED TO BE NORMAL. OVERNIGHT OXIMETRY RECORDING DID SHOW THAT HER O2 SAT WAS BELOW 89% DURING THE NIGHT. OXYGEN SUPPLY WAS PRESCRIBED BUT SHE REFUSED TO USE IT AND THUS O2 EQUIPMENT WAS RETURNED. ADVISED THE PATIENT AND HER DAUGHTER THAT SHE SHOULD CONTINUE TAKING ACETAZOLAMIDE 250 MG DAILY, HER CHRONIC HYPOVENTILATION. Code(s): J96.92 - Respiratory failure, unspecified with hypercapnia (4) Memory impairment: Comment: PATIENT HAS CHRONIC DEMENTIA, IT MAKES DIFFICULT FOR HER TO COMPLY WITH CPAP, ALSO DOES NOT WANT TO USE O2. SHE IS SUPERVISED BY HER DAUGHTER ALL THE TIMES. Code(s): R41.3 - Other amnesia Coding Level of Care Code Est Pt Level 4 (65877) Diagnoses COPD (chronic obstructive pulmonary disease) J44.9 SAVANNAH (obstructive sleep apnea) G47.33 Respiratory failure with hypercapnia J96.92 Memory impairment R41.3
== END 2023-09-01 16:10 | disposition home or self-care (01) ==
PROVIDERS: PCP Internal Medicine; Visit Provider Internal Medicine
DX: J44.9 Chronic obstructive pulmonary disease, unspecified (principal); G47.33 Obstructive sleep apnea (adult) (pediatric); J96.92 Respiratory failure, unspecified with hypercapnia; R41.3 Other amnesia
CPT/HCPCS: 99214

== ENCOUNTER → 2023-09-01 15:42 | Outpatient (BNVA) | payer OTHER, SELFPAY | PROVIDERS: PCP Internal Medicine; Visit Provider Internal Medicine | DX: J45.909 Unspecified asthma, uncomplicated (principal); G47.33 Obstructive sleep apnea (adult) (pediatric); J44.9 Chronic obstructive pulmonary disease, unspecified; J96.21 Acute and chronic respiratory failure with hypoxia ==

== ENCOUNTER 2023-09-11 08:04 | Outpatient (REF) | payer OTHER, SELFPAY ==
[2023-09-11 08:22] LABS: MANUAL DIFF FLAG NO
[2023-09-11 08:45] LABS: Basophils Percent Auto 0.1 % (0-2); Eosinophils Absolute Auto 0.1 X10*3/uL (0.0-0.4); Eosinophils Percent Auto 1.2 % (0-4); Hematocrit 41.9 % (37.0-47.0); Hemoglobin 12.9 g/dl (12.0-16.0); Imm Gran Abs Auto 0.02 X10*3/uL (0.00-0.03); Imm Gran Pct Auto 0.3 % (0.0-0.4); Lymphocytes Absolute Auto 2.6 X10*3/uL (1.2-4.9); Mean Corpuscular HGB Conc 30.8 g/dl (31.0-35.0); Mean Corpuscular Volume 84.3 fL (80.0-98.0); Mean Platelet Volume 10.2 fL (9.4-12.3); Monocytes Absolute Auto 0.3 X10*3/uL (0.1-1.2); Neutrophils Absolute Auto 3.7 x10*3/uL (2.0-8.3); Neutrophils Percent Auto 55.4 % (45-73); Platelet Count 271 X10*3/uL (160-400); Red Blood Count 4.97 X10*6/uL (4.20-5.50); Red Cell Distribution Width 14.8 % (11.0-16.0); White Blood Count 6.7 X10*3/uL (4.8-10.8)
[2023-09-11 09:18] LABS: Estimated Average Glucose 197 mg/dL; Hemoglobin A1c % 8.5 % (<6.0)
[2023-09-11 09:19] LABS: Appearance Urine Clear; Color Urine Yellow; Glucose Urine UA Negative (Negative); Leukocyte Esterase Urine Trace (Negative); Nitrite Urine Negative (Negative); PH 5.5 (5.0-9.0); UMIC TRIGGER UACC YES; Urine Blood Negative (Negative); Urine Ketones Negative (Negative); Urine Protein Negative (Neg-Trace)
[2023-09-11 09:22] LABS: Alanine Aminotransferase 6 U/L (0-31); Albumin Level 3.8 g/dL (3.5-5.0); Alkaline Phosphatase 82 U/L (39-117); Anion Gap 12 (12-20); Aspartate Amino Transferase 12 U/L (5-31); Bilirubin Total 0.5 mg/dL (0.0-1.0); Blood Urea Nitrogen 16 mg/dL (9-16); Calcium 9.6 mg/dL (8.4-10.2); Carbon Dioxide 30 mmol/L (22-29); Chloride 105 mmol/L (96-108); Cholesterol 165 mg/dL (<200); Estimated Glomerular Filt Rate > 60; Glucose Fasting 89 mg/dL (60-99); HDL Cholesterol 50 mg/dL (>40); LDL Cholesterol Calculated 99 mg/dL (<100); Potassium 4.1 mmol/L (3.3-5.1); Sodium 143 mmol/L (135-145); Total Protein 7.3 g/dL (6.5-8.0); Triglycerides 82 mg/dL (<150)
[2023-09-11 09:22] LABS: Bacteria Urine None Seen (None Seen); Hyaline Casts Urine 0-2 /LPF (0-2); RBC Urine 0-2 /HPF (0-2); WBC Urine 0-5 /HPF (0-5)
[2023-09-11 09:38] LABS: TSH reflex Free T4 3.37 uIU/mL (0.32-4.0); Thyroid Stimulating Hormone 3.37 uIU/mL (0.32-4.0); Vitamin D 25-OH Total 43.6 ng/mL (>30)
[2023-09-11 09:49] LABS: Creatinine Urine 134.67 mg/dL; Microalbum/Creatinine Ratio Ur 5.9 ug/mg cr (<30)
== END 2023-09-11 08:05 | disposition home or self-care (01) ==
LOC: HO.LAB 08:04
PROVIDERS: PCP Internal Medicine; Visit Provider Internal Medicine
DX: I10 Essential (primary) hypertension (principal); E78.00 Pure hypercholesterolemia, unspecified; E03.9 Hypothyroidism, unspecified; E11.9 Type 2 diabetes mellitus without complications; E55.9 Vitamin D deficiency, unspecified
CPT/HCPCS: 36415; 80053; 80061; 81001; 82043; 82306; 82570; 83036; 84439; 84443; 85025

== ENCOUNTER 2023-09-13 14:32 | Outpatient (AMB) | payer OTHER, SELFPAY ==
--- NOTE | 2023-09-13 14:32 | A.OFFPC_ITS ---
Vital Signs 09/13/23 14:33 Height 5 ft 3 in Weight 218 lb 8 oz BMI 38.7 BP 138/86 Blood Pressure Location Lt brachial Position Sitting Pulse 70 Pulse Source Pulse Oximeter Pulse Oximetry (%) 96 Oxygen Delivery Method Room Air Intake Visit Reasons: 3mth f/u ( meds) Card Writer Hand Required: No Accompanied by: Self / Same As Patient Allergies No Known Allergies Allergy (Verified 09/13/23 15:06) Medication List - Last Reconciled 09/13/23 by Jaime Pugh MD acetazolamide 250 mg PO DAILY 90 days albuterol sulfate 90 mcg/actuation (Ventolin HFA) 2 puffs inhalation Q6H PRN [bed pads As directed] blood sugar diagnostic As directed blood sugar diagnostic (OneTouch Ultra Test strips) USE JUSTO LO INDICADO DOS VECES AL PORTILLO blood-glucose meter twice a day chair, wheel (Wheel chair) As directed cholecalciferol (vitamin D3) 1,250 mcg PO QWEEK coenzyme Q10 (Co Q-10) 100 mg PO DAILY 90 days donepezil 10 mg PO BEDTIME 90 days [ELECTRIC WHEELCHAIR As directed] [EPP MATTRESS As directed - FOR INDEFINITE USE] ergocalciferol (vitamin D2) 1,250 mcg PO QWEEK 90 days famotidine 20 mg PO BID fluticasone furoate-vilanterol 100-25 mcg/dose (Breo Ellipta) 1 ea PO DAILY [FRONT-WHEELED WALKER (large) As directed] [HOSPITAL BED As directed] hydrochlorothiazide 12.5 mg PO DAILY 90 days insulin lispro protamin-lispro 100 unit/mL (75-25) (Humalog Mix 75-25(U-100)Insuln) 50 units (0.5 mL) subcut BID 90 days insulin syringe-needle U-100 (BD Insulin Syringe Ultra-Fine) USE 1 MISCELLANEOUS 2 TIMES A DAY insulin syringe-needle U-100 (BD Insulin Syringe Ultra-Fine) use twice a day lamotrigine 25 mg PO DAILY@1200 30 days levothyroxine 25 mcg PO DAILY [LIGHT TRANSFER WHEELCHAIR As directed] loratadine 10 mg PO DAILY PRN 90 days metformin ER 1,000 mg (2 x 500 mg) PO BEDTIME 30 days metoprolol succinate ER 50 mg See Protocol PO DAILY 30 days mometasone 50 mcg/actuation 2 sprays intranasal DAILY multivitamin 1 tab PO DAILY 90 days omeprazole 40 mg (2 x 20 mg) PO DAILY polyethylene glycol 3350 17 grams PO DAILY [RAISED TOILET SEAT As directed] rosuvastatin 40 mg PO DAILY 90 days sennosides-docusate sodium 8.6-50 mg (Senna Plus) 1 tab PO BEDTIME tizanidine 4 mg PO BEDTIME PRN 90 days trazodone 25 mg (1/2 x 50 mg) PO TID Tobacco use date assessed: 09/13/23 Fall risk assessment: No Falls in past year Last assessed Fall Risk: 09/13/23 Dental Screening Dental Screen Date: 09/13/23 Did you have a dental visit in the last 12 months?: No Did you have a dental problem in the last 6 months where you did not have access to dental care?: No Was dental information given to patient?: No HPI 3mth f/u ( meds) HPI Details Patient comes in today for her follow up visit States that she feels okay but her daughter states that patient's appetite has been slowly declining lately and she has lost some weight since her last appointment Patient has also been refusing to drink or take a lot of her current medications, including her Donepezil, Metformin and Rosuvastatin Her daughter states that the only medication she has been compliant with so far are her Breo Ellipta Inhaler and her insulin injections and is wondering if we can change some of her meds to make it simpler for her to try to coax her into drinking them whenever she can Patient denies any headaches or dizziness Denies any chest pains, no increased SOB No nausea/vomiting, no abdominal pain No change in bowel habits noted Had her follow up labs done a couple of days ago - to discuss her results Her daughter would also like for patient to get her flu shot today [facility] Medical History (Updated 10/11/23 @ 04:34 by Jaime Pugh MD) Acquired hypothyroidism Obesity (BMI 30-39.9) Diabetes mellitus Respiratory failure with hypercapnia SAVANNAH (obstructive sleep apnea) COPD (chronic obstructive pulmonary disease) Dementia with behavioral disturbance Asthma Otitis externa Elevated TSH Pain in left knee Morbid obesity with BMI of 45.0-49.9, adult Overactive bladder Umbilical hernia without obstruction and without gangrene Osteoarthritis Memory impairment Vitamin D deficiency Allergic rhinitis Osteoporosis GERD (gastroesophageal reflux disease) Pure hypercholesterolemia Essential hypertension Surgical History History of total left knee replacement History of total right knee replacement History of hysterectomy History of arthroplasty of left knee History of arthroplasty of right knee Family History Father Diabetes Cancer Mother Diabetes Social History Household Members: None Housing: Apartment Do you presently have visiting nurse or other home services: Yes (ADMISSIONS ADVISOR through [employer]) Unable to assess alcohol history related to: Unable to respond and Unknown Alcohol intake: never Comment: 1:1 sitter Patient Tobacco Use Status: Former Tobacco user Quit Date: quit 20 years ago Tobacco use type: Cigarette Years Smoked: 50 e-Cigarette/Vaping Use: Never Used Second Hand Smoke Exposure: No service: No Current occupational status: disabled Sexual orientation: Straight/Heterosexual Cognitive needs: Yes (cane) Hearing needs: Yes Vision needs: Yes Questionnaire PHQ-9 Over the last 2 weeks, how often have you been bothered by any of the following problems? 1. Little interest or pleasure in doing things: not at all 2. Feeling down, depressed, or hopeless: not at all 3. Trouble falling or staying asleep, or sleeping too much: not at all 4. Feeling tired or having little energy: not at all 5. Poor appetite or overeating: not at all 6. Feeling bad about yourself - or that you are a failure or have let yourself or your family down: not at all 7. Trouble concentrating on things, such as reading the newspaper or watching television: not at all 8. Moving or speaking so slowly that other people could have noticed. Or the opposite - being so fidgety or restless that you have been moving around a lot more than usual: not at all 9. Thoughts that you would be better off or of hurting yourself in some way: not at all Total score: 0 Depression Screening Interpretation: Negative Depression Screening Done: Yes [id number] - PHQ-9 Billing: Yes Source: Developed by Drs. Urban Chaudhary, Deanne B.Sukh Rodriguez and colleagues, with an educational antonio from [employer]. Thrive Questionnaire Date Thrive assessed: 09/13/23 I am a: Patient What is your living situation today?: I have a steady place to live Within the past 12 months, did the food you bought not last and you didn't have the money to get more?: Never true Within the past 12 months, did you worry whether your food would run out before you got money to buy more?: Never true Do you have trouble paying for medicines?: No Do you have trouble getting transportation to medical appointments?: No Do you have trouble paying your heating and electricity bill?: No Do you have trouble taking care of your child, family member or friend?: No Do you have trouble with day-to-day activities such as bathing, preparing meals, shopping, managing finances, etc.?: No Are you currently unemployed and looking for a job?: No Are you interested in more education?: No Please select the resources that you would like help with: None Currently or been in a relationship where the following occur: no concerns reported AUDIT C Alcohol Use Questionnaire (AUDIT-C) 1. How often do you have a drink containing alcohol?: Never 3. How often do you have six or more drinks on one occasion?: Never Total Score: 0 Score Reviewed/Action Taken: Yes OSVALDO-7 AMB Questionnaire OSVALDO-7 Date OSVALDO - 7 assessed: 09/13/23 Feeling nervous, anxious, or on edge: 0 = Not at all Not being able to stop or control worryin = Not at all Worrying too much about different things: 0 = Not at all Trouble relaxin = Not at all Being so restless that it is hard to sit still: 0 = Not at all Becoming easily annoyed or irritable: 0 = Not at all Feeling afraid as if something awful might happen: 0 = Not at all Total OSVALDO-7 score (0-4 normal; 5-9 mild; 10-14 moderate; 15-21 severe): 0 Source: Developed by Drs. Urban Chaudhary, Sukh Salgado and colleagues, with an educational antonio from [employer]. Review of Systems Const Details: Patient continues to have some ongoing confusion and most of her information here is obtained from patient's daughter Denies fatigue, Denies fever(s), Denies headache(s) and Reports poor appetite ENT Denies dysphagia, Denies dizziness, Denies otalgia, Denies headache(s), Denies neck pain, Denies odynophagia and Denies sore throat Card Denies chest pain, Denies palpitations and Reports dyspnea on exertion Resp Denies chest congestion, Denies cough, Reports dyspnea on exertion and Denies wheezing GI Denies abdominal pain, Denies constipation, Denies dysphagia, Denies heartburn, Denies diarrhea, Denies nausea, Denies odynophagia and Denies vomiting Denies difficulty voiding, Denies dysuria and Reports urinary incontinence Musc Reports arthralgias (over the right shoulder and left knee, on and off) and Denies neck pain Skin/Breast Denies rash Neuro Reports behavioral changes (on and off), Reports confusion (much worse since recent hospitalization), Denies dizziness, Denies headache(s) and Reports memory loss Psych Details: refusing to drink her meds and also refusing to eat and/or drink at times Reports anxiety (increased lately), Reports behavioral changes (on and off), Reports confusion (much worse since recent hospitalization) and Reports memory loss Endo Denies fatigue and Denies palpitations Aller/Immun Denies wheezing Physical exam (Primary Care) Vital Signs: Last Vital Signs Pulse 70 09/13/23 14:33 BP 138/86 09/13/23 14:33 Pulse Ox 96 09/13/23 14:33 Oxygen Delivery Method Room Air 09/13/23 14:33 BMI result Body Mass Index 38.7 Tobacco/Smoking Status: Tobacco use Status Tobacco use date assessed 09/13/23 09/13/23 14:35 Patient Tobacco Use Status Former Tobacco user 09/13/23 14:35 Tobacco use type Cigarette 09/13/23 14:35 e-Cigarette/Vaping Use Never Used 09/13/23 14:35 PHQ-9: PHQ-9 Score PHQ-9: Total score 0 09/13/23 15:40 Depression Screening Interpretation: Negative Thrive Assessment: Date of Thrive Assessment Date Thrive assessed 09/13/23 09/13/23 14:35 Currently or been in a relationship where the following occur: no concerns reported Const General: confusion (much worse since recent hospitalization) Orientation/consciousness: confusion (much worse since recent hospitalization) HENMT Ears: TM's normal bilaterally and EAC's normal Throat: Yes posterior oropharynx normal and Yes tonsils normal (no TP congestion) Neck Neck: Yes no lymphadenopathy, Yes no meningeal signs and Yes supple Resp Auscultation: no crackles, no rales, no wheezes and diminished lung sounds (slightly) bilateral Cardio Rate: regular rate Rhythm: regular rhythm Heart sounds: no murmurs GI Palpation (GI): Soft to palpation and nontender Auscultation: normal bowel sounds General: Yes no CVA tenderness Back/Spine/Pelvis Back: no CVA tenderness Skin Rashes: no rashes Neuro General: moves all extremities, no meningeal signs, no focal motor deficits and confusion (much worse since recent hospitalization) Extrem General: Yes no clubbing, cyanosis or edema Office Procedures Flu Questionnaire Does the patient have a severe egg allergy?: No Does the patient have severe life threatening allergies?: No Does the patient have a fever or illness today?: No Has the patient ever had Guillain-Romulus Syndrome?: No Has the patient ever had any past reaction to a flu shot?: No Immunizations flu vacc [id number] 6mos up(PF) 60 mcg(15 mcgx4)/0.5 mL IM syringe Performing Provider: Jaime Pugh MD [facility] Administered by: Racquel Basilio on 09/13/23 15:40 Dose Route Admin Location Dispensed Lot Number Expiration Date NDC Stock Associate 0.5 mL IM Left Deltoid 0.5 mL [id number] 04/30/24 [id number] [employer] VIS Given Date VIS Provided VIS Publication Date 09/13/23 Single Vaccine 21 Eligibility Eligibility Date Funding Source Not [facility] Eligible 09/13/23 Private Results Reviewed Results Reviewed: Laboratory Tests 09/11/23 09/11/23 09/11/23 08:15 08:20 08:20 WBC 6.7 Hgb 12.9 Hct 41.9 Plt Count 271 Sodium 143 Potassium 4.1 Creatinine 0.72 Estimated GFR > 60 Fasting Glucose 89 Hemoglobin A1c % 8.5 H Calcium 9.6 AST 12 ALT 6 Triglycerides 82 Cholesterol 165 LDL Cholesterol, Calc 99 HDL Cholesterol 50 25-OH Vitamin D Total 43.6 TSH 3.37 Free T4 0.90 Ur Specific [place] 1.020 Urine Protein Negative Urine Glucose (UA) Negative Urine Blood Negative Microalb/Creat Ratio 5.9 Assessment and Plan Assessment & Plan (1) Asthma: Code(s): J45.909 - Unspecified asthma, uncomplicated Qualifiers: Asthma complication type: uncomplicated Asthma persistence: intermittent Asthma severity: mild Qualified Code(s): J45.20 - Mild intermittent asthma, uncomplicated Plan: Appears controlled currently Continue Breo Ellipta 100-25 mcg 1 inhalation QD and Albuterol HFA 2 inhalations Q 6 hours PRN Also has Albuterol nebulizer solution that she uses with her SozializeMeraft device when needed Follow up with pulmonary as scheduled (2) Dementia with behavioral disturbance: Code(s): F03.918 - Unspecified dementia, unspecified severity, with other behavioral disturbance Plan: Required chemical restraint with antipsychotics and admission briefly to the geriatric psychiatry unit during her recent admission Has since been weaned off her psychiatric meds and released back to the care of her daughter and family, who are willing to care for her 24/05 Continue Trazodone 25 mg TID and Donepezil 10 mg Q HS although per her daughter, it has been very difficult to get patient to take her meds lately as she has been refusing to take most of them Follow up with psychiatry as scheduled Patient has also been referred to neurology for further evaluation and management in the past - unclear at this time if she was ever seen by neurology (3) Diabetes mellitus: Code(s): E11.9 - Type 2 diabetes mellitus without complications Qualifiers: Diabetes mellitus complication status: without complication Diabetes mellitus termite inspector insulin use: with halfway use Diabetes mellitus type: type 2 Qualified Code(s): E11.9 - Type 2 diabetes mellitus without complications; Z79.4 - intermediate (current) use of insulin Plan: HgbA1c was at 8.5% on her labs done a couple of days ago (was at 8.4%, 7.6% and 6.9% previously) - goal is < 7.0% Discussed with patient's daughter that her glycemic control has been slowly getting worse most likely due to poor compliance with meds on the patient's part (has been refusing to take her meds often lately) Reinforced diabetic diet Continue Humalog Mix 75/25 at 50 units SQ BID; will D/C her Metformin ER 500 mg 2 tablets (1000 mg) Q HS and start her instead on Januvia 100 mg QD to help simplify her med regimen so it will be easier for her daughter to try to get her to take her meds however she can She also has been refusing to take her Metformin ER specifically as she states that they are too big for her to swallow (4) Essential hypertension: Code(s): I10 - Essential (primary) hypertension Plan: Reinforced low sodium diet - goal is systolic BP of at least 130 to 140 mm or less Continue Metoprolol 50 mg QD and HCTZ 12.5 mg QD (5) Pure hypercholesterolemia: Code(s): E78.00 - Pure hypercholesterolemia, unspecified Plan: Results of patient's labs done a couple of days ago reviewed and discussed with patient's daughter Reinforced low cholesterol diet Continue Rosuvastatin 40 mg QD for now; patient takes Coenzyme Q-10 100 mg QD together with her Rosuvastatin to help minimize myalgias from her statin but it appears to be getting more and more difficult to get her to take her meds due to her recent behavioral changes Will recheck her labs and fasting lipids in 3 months for follow up (6) Acquired hypothyroidism: Code(s): E03.9 - Hypothyroidism, unspecified Plan: Continue Levothyroxine 25 mcg QD Will recheck her TFTs in 3 months for follow up (7) GERD (gastroesophageal reflux disease): Code(s): K21.9 - Gastro-esophageal reflux disease without esophagitis Qualifiers: Esophagitis presence: without esophagitis Qualified Code(s): K21.9 - Gastro-esophageal reflux disease without esophagitis Plan: Dietary restrictions reinforced Continue Omeprazole 20 mg 2 capsules (40 mg) QD and Famotidine 20 mg BID (8) Osteoporosis: Comment: S/P Alendronate x 5 yrs Code(s): M81.0 - Age-related osteoporosis without current pathological fracture Qualifiers: Osteoporosis type: age-related Presence of current pathological fracture: without current pathological fracture Qualified Code(s): M81.0 - Age- related osteoporosis without current pathological fracture Plan: Repeat BMD done on 05/22/2022 revealed (+) osteoporosis based on the lowest T- score value of -2.6 in the lumbar spine applying World Health Organization criteria - BMD appears mostly unchanged from his previous BMD done on 09/20/2017 S/P Alendronate Rx x 5 yrs - Rx was stopped last year Fall precautions reinforced Have reminded patient's daughter to make sure patient is on daily Vitamin D and calcium supplements daily but it is getting difficult to get patient to take her meds regularly Will continue to monitor her BMD every 2 to 3 years (9) Vitamin D deficiency: Code(s): E55.9 - Vitamin D deficiency, unspecified Plan: Continue Vitamin D 82227 units once a week (10) Allergic rhinitis: Code(s): J30.9 - Allergic rhinitis, unspecified Qualifiers: Allergic rhinitis seasonality: unspecified Allergic rhinitis trigger: unspecified Qualified Code(s): J30.9 - Allergic rhinitis, unspecified Plan: Continue Nasonex nasal spray and OTC Loratadine 10 mg QD PRN (11) Osteoarthritis: Comment: (+) Hx of bilateral knee arthroplasty - right knee in December 2010 and left knee on 07/18/2013 Code(s): M19.90 - Unspecified osteoarthritis, unspecified site Qualifiers: Osteoarthritis location: unspecified site Osteoarthritis type: primary Qualified Code(s): M19.91 - Primary osteoarthritis, unspecified site Plan: Was on Tramadol 50 mg TID PRN and Celecoxib 200 mg QD PRN in the past but she has been refusing to take most of her meds lately X-rays of the right shoulder done back in September 2019 showed (+) degenerative changes in the shoulder Follow up with orthopedics as scheduled (12) Overactive bladder: Code(s): N32.81 - Overactive bladder Plan: Follow up with urology as scheduled (13) Obesity (BMI 30-39.9): Code(s): E66.9 - Obesity, unspecified Plan: Reinforced diet; exercise and weight loss are unrealistic at this time given patient's significant cognitive decline recently although she has lost some weight lately due to her refusal to eat or drink often, per her daughter Plan Flu vaccine given today Follow up in 3 months Orders: Orders Influenza [id number] Immunization 09/13/23 Z23 - Encounter for immunization Lipid Panel 3 Months E78.00 - Pure hypercholesterolemia, unspecified Hemoglobin A1c 3 Months E11.9 - Type 2 diabetes mellitus without complications Microalbumin, Random (w Creat) 3 Months E11.9 - Type 2 diabetes mellitus without complications Free T4 (Free Thyroxine) 3 Months E03.9 - Hypothyroidism, unspecified Vitamin D 25-OH Total 3 Months E55.9 - Vitamin D deficiency, unspecified Complete Blood Count Auto Diff 3 Months I10 - Essential (primary) hypertension Comprehensive [place]. Panel Fast 3 Months E78.00 - Pure hypercholesterolemia, unspecified Thyroid Stimulating Hormone 3 Months E03.9 - Hypothyroidism, unspecified UA CC w/rflx Micro + Cult 3 Months R30.0 - Dysuria Medications: New donepezil 10 mg PO BEDTIME 30 tabs 5RF 30 days Januvia (sitagliptin phosphate) 100 mg PO DAILY 90 tabs 1RF 90 days NS E11.9 - Type 2 diabetes mellitus without complications Discontinued metformin ER Discontinued Reason: Doctor's Order 1,000 mg (2 x 500 mg) PO BEDTIME 30 days 60 tabs 0RF Coding Level of Care Code Est Pt Level 4 (19756) Diagnoses Mild intermittent asthma without complication J45.20 Asthma complication type: uncomplicated Asthma persistence: intermittent Asthma severity: mild Dementia with behavioral disturbance F03.918 Type 2 diabetes mellitus without complication, with long-term current use of insulin E11.9; Z79.4 Diabetes mellitus complication status: without complication Diabetes mellitus termite inspector insulin use: with halfway use Diabetes mellitus type: type 2 Essential hypertension I10 Pure hypercholesterolemia E78.00 Acquired hypothyroidism E03.9 Gastroesophageal reflux disease without esophagitis K21.9 Esophagitis presence: without esophagitis Age-related osteoporosis without current pathological fracture M81.0 Osteoporosis type: age-related Presence of current pathological fracture: without current pathological fracture Vitamin D deficiency E55.9 Allergic rhinitis, unspecified seasonality, unspecified trigger J30.9 Allergic rhinitis seasonality: unspecified Allergic rhinitis trigger: unspecified Primary osteoarthritis, unspecified site M19.91 Osteoarthritis location: unspecified site Osteoarthritis type: primary Overactive bladder N32.81 Obesity (BMI 30-39.9) E66.9
[2023-09-13 14:33] VITALS: BP 138/86; PULSE 70; O2SAT 96; BMI 38.7
== END 2023-09-13 15:43 | disposition home or self-care (01) ==
PROVIDERS: PCP Internal Medicine; Visit Provider Internal Medicine
DX: Z23 Encounter for immunization (principal)
CPT/HCPCS: 90471; 90686; 99214

== ENCOUNTER 2023-12-23 15:52 | Outpatient (AMB) | payer OTHER, SELFPAY ==
--- NOTE | 2023-12-23 16:06 | MHC.OFFVIS ---
Intake Vital Signs 12/23/23 16:07 Height 5 ft 3 in Weight 220 lb BMI 39.0 BP 122/70 Blood Pressure Location Lt brachial Position Sitting Pulse 71 Pulse Source Pulse Oximeter Pulse Oximetry (%) 93 Oxygen Delivery Method Room Air Intake Visit Reasons: copd Allergies No Known Allergies Allergy (Verified 12/23/23 16:32) Medication List - Last Reconciled 12/23/23 by Lester Singh MD acetazolamide 250 mg PO DAILY 90 days albuterol sulfate 90 mcg/actuation (Ventolin HFA) 2 puffs inhalation Q6H PRN [bed pads As directed] [BEDSIDE COMMODE As directed] blood sugar diagnostic As directed blood sugar diagnostic (OneTouch Ultra Test strips) USE JUSTO LO INDICADO DOS VECES AL PORTILLO blood-glucose meter twice a day chair, wheel (Wheel chair) As directed cholecalciferol (vitamin D3) 1,250 mcg PO QWEEK coenzyme Q10 (Co Q-10) 100 mg PO DAILY 90 days donepezil 10 mg PO BEDTIME 90 days donepezil 10 mg PO BEDTIME 30 days [ELECTRIC WHEELCHAIR As directed] [EPP MATTRESS As directed - FOR INDEFINITE USE] ergocalciferol (vitamin D2) 1,250 mcg PO QWEEK 90 days famotidine 20 mg PO BID fluticasone furoate-vilanterol 100-25 mcg/dose (Breo Ellipta) 1 ea PO DAILY [FRONT-WHEELED WALKER (large) As directed] [HOSPITAL BED As directed] hydrochlorothiazide 12.5 mg PO DAILY 90 days insulin lispro protamin-lispro 100 unit/mL (75-25) (Humalog Mix 75-25(U-100)Insuln) 50 units (0.5 mL) subcut BID 90 days insulin syringe-needle U-100 (BD Insulin Syringe Ultra-Fine) USE 1 MISCELLANEOUS 2 TIMES A DAY insulin syringe-needle U-100 (BD Insulin Syringe Ultra-Fine) use twice a day Januvia (sitagliptin phosphate) 100 mg PO DAILY 90 days NS lamotrigine 25 mg PO DAILY@1200 30 days levothyroxine 25 mcg PO DAILY [LIGHT TRANSFER WHEELCHAIR As directed] loratadine 10 mg PO DAILY PRN 90 days metoprolol succinate ER 50 mg See Protocol PO DAILY 30 days mometasone 50 mcg/actuation 2 sprays intranasal DAILY multivitamin 1 tab PO DAILY 90 days omeprazole 40 mg (2 x 20 mg) PO DAILY polyethylene glycol 3350 17 grams PO DAILY [RAISED TOILET SEAT As directed] rosuvastatin 40 mg PO DAILY 90 days sennosides-docusate sodium 8.6-50 mg (Senna Plus) 1 tab PO BEDTIME tizanidine 4 mg PO BEDTIME PRN 90 days trazodone 25 mg (1/2 x 50 mg) PO TID Do you need a note to return to daycare/school/sports/work: No HPI copd HPI Details THIS 83 YEARS OLD FEMALE, VERY PLEASANT BUT WITH SIGNIFICANT COGNITIVE IMPAIRMENT/DEMANTIA , IS GROSSLY OBESE AND DOES HAVE DIAGNOSIS OF OBSTRUCTIVE SLEEP APNEA WITH CHRONIC RESPIRATORY FAILURE( HYPOXEMIA AND HYPERCAPNIA) SHE HAS DECLINED TO USE OXYGEN AT HOME AND ALSO DOES NOT WANT TO USE ANY CPAP. SHE WAS STARTED ON ACETAZOLAMIDE 250 MG DAILY, BUT SHE DOES NOT TAKE IT ALL THE TIMES. THE DAUGHTER SAY IS THAT ON SOME DAYS SHE CAN TAKE IT ON THE OTHER. DAYS SHE REFUSES TO TAKE THE MEDICINE ANYWAY SHE IS DOING WELL WITHOUT ANY ACUTE RESPIRATORY SYMPTOMS, . OR CHANGE IN MENTAL STATUS SHE CLAIMS THAT SHE SLEEPS FAIRLY WELL AT NIGHT. SHE HAS VERY LITTLE COUGH OR WHEEZING. SHE IS VERY SLOW IN MOVING AROUND ANYWAY. [facility] Medical History Acquired hypothyroidism Obesity (BMI 30-39.9) Diabetes mellitus Respiratory failure with hypercapnia SAVANNAH (obstructive sleep apnea) COPD (chronic obstructive pulmonary disease) Dementia with behavioral disturbance Asthma Otitis externa Elevated TSH Pain in left knee Morbid obesity with BMI of 45.0-49.9, adult Overactive bladder Umbilical hernia without obstruction and without gangrene Osteoarthritis Memory impairment Vitamin D deficiency Allergic rhinitis Osteoporosis GERD (gastroesophageal reflux disease) Pure hypercholesterolemia Essential hypertension Surgical History History of total left knee replacement History of total right knee replacement History of hysterectomy History of arthroplasty of left knee History of arthroplasty of right knee Family History Father Diabetes Cancer Mother Diabetes Social History Household Members: None Housing: Apartment Do you presently have visiting nurse or other home services: Yes (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 ACCORDING TO THE DAUGHTER SHE DOES HAVE MILD INTERMITTENT COUGH, NO RESPIRATORY DISTRESS. Unobtainable due to mental status and Other (PATIENT IS, ON ABLE TO ANSWER QUESTIONS. ) Physical Exam Vital Signs: Last Vital Signs Pulse 71 12/23/23 16:07 BP 122/70 12/23/23 16:07 Pulse Ox 93 12/23/23 16:07 Oxygen Delivery Method Room Air 12/23/23 16:07 BMI result Body Mass Index 39.0 Last Vital Signs Temp 98.7 F 03/20/23 07:27 Pulse 87 03/20/23 07:27 Resp 20 03/20/23 07:27 BP 108/62 03/20/23 07:27 Pulse Ox 93 03/20/23 07:27 O2 Del Method Nasal Cannula 03/20/23 07:27 O2 Flow Rate 2 03/20/23 07:27 FiO2 35 03/11/23 08:00 Oxygen Flow Rate 6 03/02/23 16:32 BMI result Body Mass Index 50.9 Const General: comfortable, no acute distress, alert and awake Orientation/consciousness: oriented to person and oriented to place HEENT Head: Yes normal to inspection General nose exam: No nasal polyps present and No nasal discharge present Face and sinus: Yes sinuses nontender Mouth: oropharynx abnormals (VERY NARROW AND CROWDED, MALLAMPATI SCALE 4) Throat: Yes posterior oropharynx normal Eyes General: appearance normal, both eyes and all related structures Neck Neck: Yes normal visual inspection, Yes no lymphadenopathy, Yes trachea midline, Yes no JVD and Yes other (NECK CIRCUMFERENCE 17-1/2 INCH) Thyroid: Thyroid normal Chest Chest palpation & inspection: normal inspection of the chest, normal palpation of entire chest wall and no tenderness Resp Other: PERCUSSION NOTE RESONANT, BREATH SOUNDS ARE SLIGHTLY DISTANT WITH PROLONGED EXPIRATORY PHASE. BREATH. SOUNDS DIMINISHED OVER THE BASILAR AREAS NO WHEEZES RHONCHI OR CREPITATIONS ARE HEARD. Cardio Palpation: normal PMI Rate: regular rate Rhythm: regular rhythm Heart sounds: no gallops and no murmurs GI Palpation (GI): Soft to palpation, nontender, No hepatosplenomegaly present and no masses Auscultation: normal bowel sounds Back/Spine/Pelvis Thoracic/Lumbar Spine: thoracic and lumbar spine normal to inspection and thoraco-lumbar ROM limited Skin General skin exam: no rashes or lesions noted and dry skin Neuro General: oriented to person, oriented to place, No gait normal (GAIT IS IMPAIRED AND UNSTABLE. SHE NEEDS WHEELED WALKER TO WALK) and no focal motor deficits Cranial nerves: Yes CN's II-XII intact bilaterally Extrem General: Yes normal to inspection, Yes no clubbing, cyanosis or edema and Yes no calf tenderness Psych Mental Status: mental status grossly normal Speech and movement: No Normal speech and movement present (DOES NOT VERBALIZE.) Results Reviewed Results Reviewed: VENOUS BLOOD GASE STUDY ORDERED Assessment & Plan Assessment & Plan (1) COPD (chronic obstructive pulmonary disease): Comment: CLINICALLY THIS PATIENT HAS CHRONIC BRONCHIAL ASTHMA/COPD. SHE PROBABLY ALSO HAVE SOME RESTRICTIVE LUNG DISEASE. Code(s): J44.9 - Chronic obstructive pulmonary disease, unspecified Plan: BREO 100-25 1 INHALATION DAILY IF SHE, IS AGREEABLE PROAIR HFA 2 PUFFS Q 4-6 HOURS P.R.N. (2) SAVANNAH (obstructive sleep apnea): Comment: PATIENT DOES HAVE HISTORY OF OBSTRUCTIVE SLEEP APNEA SINCE 2013 WHEN SHE HAD THE SLEEP STUDY. BUT SHE HAS NOT BEEN ABLE TO USE THE CPAP. CLAIMS THAT SHE IS SLEEPING OKAY. Code(s): G47.33 - Obstructive sleep apnea (adult) (pediatric) Plan: ABOVE (3) Respiratory failure with hypercapnia: Comment: SHE HAD MILD HYPOXEMIA AND HYPERCAPNIA WHEN HOSPITALIZED. O2 SAT DURING 6 MINUTES WALKING WAS NOTED TO BE NORMAL. OVERNIGHT OXIMETRY RECORDING DID SHOW THAT HER O2 SAT WAS BELOW 89% DURING THE NIGHT. OXYGEN SUPPLY WAS PRESCRIBED BUT SHE REFUSED TO USE IT AND THUS O2 EQUIPMENT WAS RETURNED. ADVISED THE PATIENT AND HER DAUGHTER THAT SHE SHOULD CONTINUE TAKING ACETAZOLAMIDE 250 MG DAILY, HER CHRONIC HYPOVENTILATION. Code(s): J96.92 - Respiratory failure, unspecified with hypercapnia Plan: ACETAZOLAMIDE 250 MG ONCE A DAY Orders: Orders Venous Blood Gas Today G47.33 - Obstructive sleep apnea (adult) (pediatric), J44.9 - Chronic obstructive pulmonary disease, unspecified, J96.92 - Respiratory failure, unspecified with hypercapnia Coding Level of Care Code Est Pt Level 3 (73552) Diagnoses COPD (chronic obstructive pulmonary disease) J44.9 SAVANNAH (obstructive sleep apnea) G47.33 Respiratory failure with hypercapnia J96.92
[2023-12-23 16:07] VITALS: BP 122/70; PULSE 71; O2SAT 93; BMI 39.0
== END 2023-12-23 16:30 | disposition home or self-care (01) ==
PROVIDERS: PCP Internal Medicine; Visit Provider Internal Medicine
DX: J44.9 Chronic obstructive pulmonary disease, unspecified (principal); G47.33 Obstructive sleep apnea (adult) (pediatric); J96.92 Respiratory failure, unspecified with hypercapnia
CPT/HCPCS: 99213

== ENCOUNTER 2023-12-23 15:52 | Outpatient (REF) | payer OTHER, SELFPAY ==
[2023-12-23 17:08] LABS: VBG Base Excess 6.4 mmol/L; VBG HCO3 31 mmol/L (22-26); VBG pCO2 46 mmHg; VBG pH 7.44 (7.32-7.43); VBG pO2 55 mmHg
[2023-12-23 17:09] LABS: Venous Blood Gas Refer to POC result
== END 2023-12-23 15:53 | disposition home or self-care (01) ==
LOC: HO.LAB 15:52
PROVIDERS: PCP Internal Medicine; Visit Provider Internal Medicine
DX: J44.9 Chronic obstructive pulmonary disease, unspecified (principal); J96.12 Chronic respiratory failure with hypercapnia; J96.11 Chronic respiratory failure with hypoxia; G47.33 Obstructive sleep apnea (adult) (pediatric); F03.90 Unspecified dementia, unspecified severity, without behavioral disturbance, psychotic disturbance, mood disturbance, and anxiety; E66.9 Obesity, unspecified; Z79.899 Other long term (current) drug therapy
CPT/HCPCS: 36415; 82803

== ENCOUNTER 2023-12-31 07:39 | Outpatient (REF) | payer OTHER, SELFPAY ==
[2023-12-31 08:02] LABS: MANUAL DIFF FLAG NO
[2023-12-31 08:11] LABS: Basophils Percent Auto 0.4 % (0-2); Eosinophils Absolute Auto 0.1 X10*3/uL (0.0-0.4); Eosinophils Percent Auto 1.4 % (0-4); Hematocrit 43.7 % (37.0-47.0); Hemoglobin 13.8 g/dl (12.0-16.0); Imm Gran Abs Auto 0.01 X10*3/uL (0.00-0.03); Imm Gran Pct Auto 0.2 % (0.0-0.4); Lymphocytes Absolute Auto 2.5 X10*3/uL (1.2-4.9); Lymphocytes Percent Auto 43.8 % (20-40); Mean Corpuscular HGB Conc 31.6 g/dl (31.0-35.0); Mean Corpuscular Hemoglobin 26.6 pg (27.0-33.0); Mean Corpuscular Volume 84.2 fL (80.0-98.0); Mean Platelet Volume 9.9 fL (9.4-12.3); Monocytes Absolute Auto 0.2 X10*3/uL (0.1-1.2); Monocytes Percent Auto 4.1 % (2-11); Neutrophils Absolute Auto 2.8 x10*3/uL (2.0-8.3); Neutrophils Percent Auto 50.1 % (45-73); Platelet Count 247 X10*3/uL (160-400); Red Blood Count 5.19 X10*6/uL (4.20-5.50); Red Cell Distribution Width 14.6 % (11.0-16.0); White Blood Count 5.6 X10*3/uL (4.8-10.8)
[2023-12-31 08:22] LABS: Estimated Average Glucose 209 mg/dL; Hemoglobin A1c % 8.9 % (<6.0)
[2023-12-31 08:54] LABS: Appearance Urine Clear; Color Urine Yellow; Glucose Urine UA Negative (Negative); Leukocyte Esterase Urine Negative (Negative); Nitrite Urine Negative (Negative); PH 5.5 (5.0-9.0); Specific Gravity - Urine 1.015 (1.005-1.025); Urine Blood Negative (Negative); Urine Ketones Negative (Negative); Urine Protein Negative (Neg-Trace)
[2023-12-31 09:04] LABS: Alanine Aminotransferase 8 U/L (0-31); Albumin Level 3.7 g/dL (3.5-5.0); Alkaline Phosphatase 85 U/L (39-117); Anion Gap 11 (12-20); Aspartate Amino Transferase 10 U/L (5-31); Bilirubin Total 0.5 mg/dL (0.0-1.0); Blood Urea Nitrogen 17 mg/dL (9-16); Calcium 9.5 mg/dL (8.4-10.2); Carbon Dioxide 31 mmol/L (22-29); Chloride 105 mmol/L (96-108); Cholesterol 216 mg/dL (<200); Estimated Glomerular Filt Rate > 60; Glucose Fasting 227 mg/dL (60-99); HDL Cholesterol 54 mg/dL (>40); LDL Cholesterol Calculated 142 mg/dL (<100); Potassium 4.3 mmol/L (3.3-5.1); Sodium 143 mmol/L (135-145); Total Protein 7.4 g/dL (6.5-8.0); Triglycerides 104 mg/dL (<150)
[2023-12-31 09:06] LABS: Free T4 (Free Thyroxine) 0.82 ng/dL (0.71-1.85); Thyroid Stimulating Hormone 5.64 uIU/mL (0.32-4.0); Vitamin D 25-OH Total 31.3 ng/mL (>30)
[2023-12-31 09:15] LABS: Folate 10.5 ng/mL (> or = 4.0); Vitamin B12 387 pg/mL (200-900)
[2023-12-31 09:32] LABS: Creatinine Urine 93.98 mg/dL; Microalbum/Creatinine Ratio Ur 8.5 ug/mg cr (<30)
== END 2023-12-31 07:40 | disposition home or self-care (01) ==
LOC: HO.LAB 07:39
PROVIDERS: PCP Internal Medicine; Visit Provider Internal Medicine
DX: R30.0 Dysuria (principal); I10 Essential (primary) hypertension; E78.00 Pure hypercholesterolemia, unspecified; E11.9 Type 2 diabetes mellitus without complications; E55.9 Vitamin D deficiency, unspecified; E03.9 Hypothyroidism, unspecified; E53.8 Deficiency of other specified B group vitamins
CPT/HCPCS: 36415; 80053; 80061; 81003; 82043; 82306; 82570; 82607; 82746; 83036; 84439; 84443; 85025

== ENCOUNTER 2024-01-05 15:59 | Outpatient (AMB) | payer OTHER, SELFPAY ==
--- NOTE | 2024-01-05 16:07 | MHC.PC.OV ---
Vital Signs 01/05/24 16:09 Height 5 ft 3 in Weight 220 lb 7.396 oz BMI 39.0 BP 142/68 H Blood Pressure Location Lt brachial Position Sitting Pulse 77 Pulse Source Pulse Oximeter Pulse Oximetry (%) 98 Oxygen Delivery Method Room Air Intake Visit Reasons: hyperlipidemia, DM, HTN, dementia, hypothyroidism Intake Note: Patient is here to follow up on hyperlipidemia, DM, HTN, dementia, hypothyroidism. Allergies No Known Allergies Allergy (Verified 01/05/24 16:32) Medication List - Last Reconciled 01/05/24 by Jaime Pugh MD acetazolamide 250 mg PO DAILY 90 days albuterol sulfate 90 mcg/actuation (Ventolin HFA) 2 puffs inhalation Q6H PRN [bed pads As directed] [BEDSIDE COMMODE As directed] blood sugar diagnostic As directed blood sugar diagnostic (OneTouch Ultra Test strips) USE JUSTO LO INDICADO DOS VECES AL PORTILLO blood-glucose meter twice a day chair, wheel (Wheel chair) As directed cholecalciferol (vitamin D3) 1,250 mcg PO QWEEK coenzyme Q10 (Co Q-10) 100 mg PO DAILY 90 days donepezil 10 mg PO BEDTIME 30 days [ELECTRIC WHEELCHAIR As directed] [EPP MATTRESS As directed - FOR INDEFINITE USE] ergocalciferol (vitamin D2) 1,250 mcg PO QWEEK 90 days famotidine 20 mg PO BID fluticasone furoate-vilanterol 100-25 mcg/dose (Breo Ellipta) 1 ea PO DAILY [FRONT-WHEELED WALKER (large) As directed] [HOSPITAL BED As directed] hydrochlorothiazide 12.5 mg PO DAILY 90 days insulin lispro protamin-lispro 100 unit/mL (75-25) (Humalog Mix 75-25(U-100)Insuln) 50 units (0.5 mL) subcut BID 90 days insulin syringe-needle U-100 (BD Insulin Syringe Ultra-Fine) USE 1 MISCELLANEOUS 2 TIMES A DAY insulin syringe-needle U-100 (BD Insulin Syringe Ultra-Fine) use twice a day Januvia (sitagliptin phosphate) 100 mg PO DAILY 90 days NS lamotrigine 25 mg PO DAILY@1200 30 days levothyroxine 25 mcg PO DAILY [LIGHT TRANSFER WHEELCHAIR As directed] loratadine 10 mg PO DAILY PRN 90 days metoprolol succinate ER 50 mg See Protocol PO DAILY 30 days mometasone 50 mcg/actuation 2 sprays intranasal DAILY multivitamin 1 tab PO DAILY 90 days omeprazole 40 mg (2 x 20 mg) PO DAILY polyethylene glycol 3350 17 grams PO DAILY [RAISED TOILET SEAT As directed] rosuvastatin 40 mg PO DAILY 90 days sennosides-docusate sodium 8.6-50 mg (Senna Plus) 1 tab PO BEDTIME tizanidine 4 mg PO BEDTIME PRN 90 days trazodone 25 mg (1/2 x 50 mg) PO TID Tobacco use date assessed: 01/05/24 Fall risk assessment: No Falls in past year Last assessed Fall Risk: 01/05/24 HPI hyperlipidemia, DM, HTN, dementia, hypothyroidism HPI Details Patient comes in today for her follow up visit States that she feels okay although her daughter states that patient sometimes still refuses to take her medications and has not been very compliant with her diet lately States that with patient's dementia, it is getting more difficult to convince her to take her medications regularly and she often has to resort to telling patient that they are just vitamins to get her to agree to take her medications Patient has not been exhibiting any aggressive tendencies or other concerning behavioral issues as before She denies any headaches or dizziness Denies any chest pains, no shortness of breath No nausea /vomiting, no abdominal pain No change in bowel habits noted Had her follow-up labs done a few days ago - to discuss her results [facility] Medical History Acquired hypothyroidism Obesity (BMI 30-39.9) Diabetes mellitus Respiratory failure with hypercapnia SAVANNAH (obstructive sleep apnea) COPD (chronic obstructive pulmonary disease) Dementia with behavioral disturbance Asthma Otitis externa Elevated TSH Pain in left knee Morbid obesity with BMI of 45.0-49.9, adult Overactive bladder Umbilical hernia without obstruction and without gangrene Osteoarthritis Memory impairment Vitamin D deficiency Allergic rhinitis Osteoporosis GERD (gastroesophageal reflux disease) Pure hypercholesterolemia Essential hypertension Surgical History History of total left knee replacement History of total right knee replacement History of hysterectomy History of arthroplasty of left knee History of arthroplasty of right knee Family History Father Diabetes Cancer Mother Diabetes Social History Household Members: None Housing: Apartment Do you presently have visiting nurse or other home services: Yes (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 1. Little interest or pleasure in doing things: not at all 2. Feeling down, depressed, or hopeless: not at all 3. Trouble falling or staying asleep, or sleeping too much: not at all 4. Feeling tired or having little energy: not at all 5. Poor appetite or overeating: not at all 6. Feeling bad about yourself - or that you are a failure or have let yourself or your family down: not at all 7. Trouble concentrating on things, such as reading the newspaper or watching television: not at all 8. Moving or speaking so slowly that other people could have noticed. Or the opposite - being so fidgety or restless that you have been moving around a lot more than usual: not at all 9. Thoughts that you would be better off or of hurting yourself in some way: not at all Total score: 0 Depression Screening Interpretation: Negative Depression Screening Done: Yes 89531 - PHQ-9 Billing: Yes Source: Developed by Drs. Ubran Chaudhary, Deanne Beatty, Sukh Lopez and colleagues, with an educational antonio from [employer]. Thrive Questionnaire Date Thrive assessed: 01/05/24 I am a: Patient What is your living situation today?: I have a steady place to live Within the past 12 months, did the food you bought not last and you didn't have the money to get more?: Never true Within the past 12 months, did you worry whether your food would run out before you got money to buy more?: Never true Do you have trouble paying for medicines?: No Do you have trouble getting transportation to medical appointments?: No Do you have trouble paying your heating and electricity bill?: No Do you have trouble taking care of your child, family member or friend?: No Do you have trouble with day-to-day activities such as bathing, preparing meals, shopping, managing finances, etc.?: No Are you currently unemployed and looking for a job?: No Are you interested in more education?: No Please select the resources that you would like help with: None Currently or been in a relationship where the following occur: no concerns reported THRIVE Score: 0 AUDIT C Alcohol Use Questionnaire (AUDIT-C) 1. How often do you have a drink containing alcohol?: Never 3. How often do you have six or more drinks on one occasion?: Never Total Score: 0 Score Reviewed/Action Taken: Yes OSVALDO-7 AMB Questionnaire OSVALDO-7 Date OSVALDO - 7 assessed: 01/05/24 Source: Developed by Drs. Urban Chaudhary, Deanne Beatty, Sukh Lopez and colleagues, with an educational antonio from [employer]. Review of Systems Const Details: Patient continues to have some ongoing confusion and most of her information here is obtained from patient's daughter Denies fatigue, Denies fever(s) and Denies headache(s) ENT Denies dysphagia, Denies dizziness, Denies otalgia, Denies headache(s), Denies neck pain, Denies odynophagia and Denies sore throat Card Denies chest pain, Denies palpitations and Reports dyspnea on exertion (mild) Resp Denies chest congestion, Denies cough, Reports dyspnea on exertion (mild) and Denies wheezing GI Denies abdominal pain, Denies constipation, Denies dysphagia, Denies heartburn, Denies diarrhea, Denies nausea, Denies odynophagia and Denies vomiting Denies difficulty voiding, Denies dysuria and Reports urinary incontinence Musc Reports arthralgias (over the right shoulder and left knee, on and off) and Denies neck pain Skin/Breast Denies rash Neuro Reports behavioral changes (on and off), Reports confusion, Denies dizziness, Denies headache(s) and Reports memory loss Psych Details: refusing to drink her meds and also refusing to eat and/or drink at times Reports anxiety, Reports behavioral changes (on and off), Reports confusion and Reports memory loss Endo Denies fatigue and Denies palpitations Aller/Immun Denies wheezing Physical exam (Primary Care) Vital Signs: Last Vital Signs Pulse 77 01/05/24 16:09 BP 142/68 H 01/05/24 16:09 Pulse Ox 98 01/05/24 16:09 Oxygen Delivery Method Room Air 01/05/24 16:09 BMI result Body Mass Index 39.0 Tobacco/Smoking Status: Tobacco use Status Tobacco use date assessed 01/05/24 01/05/24 16:09 Patient Tobacco Use Status Former Tobacco user 01/05/24 16:09 Tobacco use type Cigarette 01/05/24 16:09 e-Cigarette/Vaping Use Never Used 01/05/24 16:09 Depression Screening Interpretation: Negative Thrive Assessment: Date of Thrive Assessment Date Thrive assessed 09/13/23 01/05/24 16:09 Currently or been in a relationship where the following occur: no concerns reported Const General: confusion Orientation/consciousness: confusion HENMT Ears: TM's normal bilaterally and EAC's normal Throat: Yes posterior oropharynx normal and Yes tonsils normal (no TP congestion) Neck Neck: Yes no lymphadenopathy, Yes no meningeal signs and Yes supple Thyroid: Thyroid normal Resp Auscultation: no crackles, no rales, no wheezes and diminished lung sounds (slightly) bilateral Cardio Rate: regular rate Rhythm: regular rhythm Heart sounds: no murmurs GI Palpation (GI): Soft to palpation and nontender Auscultation: normal bowel sounds General: Yes no CVA tenderness Back/Spine/Pelvis Back: no CVA tenderness Skin Rashes: no rashes Neuro General: no meningeal signs and confusion Extrem General: Yes no clubbing, cyanosis or edema Results Reviewed Results Reviewed: Laboratory Tests 12/31/23 12/31/23 12/31/23 07:45 07:45 07:45 WBC Hgb Hct Plt Count Sodium Potassium Creatinine Estimated GFR Fasting Glucose Hemoglobin A1c % Calcium AST ALT Triglycerides Cholesterol LDL Cholesterol, Calc HDL Cholesterol Vitamin B12 25-OH Vitamin D Total TSH Free T4 Ur Specific [place] 1.015 Urine Protein Negative Urine Glucose (UA) Negative Urine Blood Negative Urine Nitrite Negative Ur Leukocyte Esterase Negative Microalb/Creat Ratio 12/31/23 12/31/23 12/31/23 07:52 07:57 07:57 WBC 5.6 Hgb 13.8 Hct 43.7 Plt Count 247 Sodium 143 Potassium 4.3 Creatinine 0.85 Estimated GFR > 60 Fasting Glucose 227 H Hemoglobin A1c % Calcium 9.5 AST 10 ALT 8 Triglycerides 104 Cholesterol 216 H LDL Cholesterol, Calc 142 H HDL Cholesterol 54 Vitamin B12 387 25-OH Vitamin D Total 31.3 TSH 5.64 H Free T4 0.82 Ur Specific [place] Urine Protein Urine Glucose (UA) Urine Blood Urine Nitrite Ur Leukocyte Esterase Microalb/Creat Ratio 8.5 12/31/23 07:57 WBC Hgb Hct Plt Count Sodium Potassium Creatinine Estimated GFR Fasting Glucose Hemoglobin A1c % 8.9 H Calcium AST ALT Triglycerides Cholesterol LDL Cholesterol, Calc HDL Cholesterol Vitamin B12 25-OH Vitamin D Total TSH Free T4 Ur Specific [place] Urine Protein Urine Glucose (UA) Urine Blood Urine Nitrite Ur Leukocyte Esterase Microalb/Creat Ratio Assessment and Plan Assessment & Plan (1) Diabetes mellitus: Code(s): E11.9 - Type 2 diabetes mellitus without complications Qualifiers: Diabetes mellitus complication status: without complication Diabetes mellitus nursing home insulin use: with termination clerk use Diabetes mellitus type: type 2 Qualified Code(s): E11.9 - Type 2 diabetes mellitus without complications; Z79.4 - care home (current) use of insulin Plan: Her HgbA1c has increased to 8.9% on her labs done a few days ago (was at 8.5% previously) - goal is < 7.0% This is most likely due to poor compliance with her medications as patient has been refusing to take her medications frequently Reinforced diabetic diet Will increase her Humalog Mix 75/25 to 60 units SQ BID and continue her on Januvia 100 mg QD Patient's daughter is advised to just do her best and continue to try getting patient to take her medications any way she can (2) Dementia with behavioral disturbance: Code(s): F03.918 - Unspecified dementia, unspecified severity, with other behavioral disturbance Plan: Required chemical restraint with antipsychotics and admission briefly to the geriatric psychiatry unit during her hospital admission last fall Has since been weaned off her psychiatric meds and released back to the care of her daughter and family, who are willing to care for her 24/05 Continue Trazodone 25 mg TID and Donepezil 10 mg Q HS although per her daughter, it is still difficult to get patient to take her meds regularly as she has been refusing to take her meds frequently - states that a lot of her meds gives her heartburns Follow up with psychiatry as scheduled Patient has also been referred to neurology for further evaluation and management and was seen by Dr. Umana back in May 2023 Was diagnosed then with Alzheimer's disease and started additionally on Memantine 5 mg BID but patient's daughter states that she would not even take the medication (3) Essential hypertension: Code(s): I10 - Essential (primary) hypertension Plan: Reinforced low sodium diet - goal is systolic BP of at least 130 to 140 mm or less Continue Metoprolol 50 mg QD and HCTZ 12.5 mg QD (4) Pure hypercholesterolemia: Code(s): E78.00 - Pure hypercholesterolemia, unspecified Plan: Results of patient's labs done a few days ago reviewed and discussed with patient's daughter - is cautioned that patient's cholesterol levels have all increased from previous Reinforced low cholesterol diet Continue Rosuvastatin 40 mg QD for now; patient takes Coenzyme Q-10 100 mg QD together with her Rosuvastatin to help minimize myalgias from her statin but it appears to be getting more and more difficult to get her to take her meds due to her recent behavioral changes and confusion Will recheck her labs and fasting lipids in 3 months for follow up (5) Asthma: Code(s): J45.909 - Unspecified asthma, uncomplicated Qualifiers: Asthma complication type: uncomplicated Asthma persistence: intermittent Asthma severity: mild Qualified Code(s): J45.20 - Mild intermittent asthma, uncomplicated Plan: Appears controlled at present Continue Breo Ellipta 100-25 mcg 1 inhalation QD and Albuterol HFA 2 inhalations Q 6 hours PRN Also has Albuterol nebulizer solution that she uses with her updraft device when needed Follow up with pulmonary as scheduled (6) Acquired hypothyroidism: Code(s): E03.9 - Hypothyroidism, unspecified Plan: Continue Levothyroxine 25 mcg QD Patient's daughter is reminded that patient's Levothyroxine should still be ideally taken first thing in the morning on an empty stomach and she is not supposed to drink or eat anything else aside from water for the next 30 minutes Will recheck her TFTs in 3 months for follow up (7) GERD (gastroesophageal reflux disease): Code(s): K21.9 - Gastro-esophageal reflux disease without esophagitis Qualifiers: Esophagitis presence: without esophagitis Qualified Code(s): K21.9 - Gastro-esophageal reflux disease without esophagitis Plan: Dietary restrictions reinforced Continue Omeprazole 20 mg 2 capsules (40 mg) QD and Famotidine 20 mg BID (8) Osteoporosis: Comment: S/P Alendronate x 5 yrs Code(s): M81.0 - Age-related osteoporosis without current pathological fracture Qualifiers: Osteoporosis type: age-related Presence of current pathological fracture: without current pathological fracture Qualified Code(s): M81.0 - Age-related osteoporosis without current pathological fracture Plan: Repeat BMD done on 05/22/2022 revealed (+) osteoporosis based on the lowest T-score value of -2.6 in the lumbar spine applying World Health Organization criteria - BMD appears mostly unchanged from his previous BMD done on 09/20/2017 S/P Alendronate Rx x 5 yrs - Rx was stopped last year Fall precautions reinforced Have reminded patient's daughter to make sure patient is on daily Vitamin D and calcium supplements daily but it is getting difficult to get patient to take her meds regularly Will continue to monitor her BMD every 2 to 3 years (9) Vitamin D deficiency: Code(s): E55.9 - Vitamin D deficiency, unspecified Plan: Continue Vitamin D 92705 units once a week (10) Allergic rhinitis: Code(s): J30.9 - Allergic rhinitis, unspecified Qualifiers: Allergic rhinitis seasonality: unspecified Allergic rhinitis trigger: unspecified Qualified Code(s): J30.9 - Allergic rhinitis, unspecified Plan: Continue Nasonex nasal spray and OTC Loratadine 10 mg QD PRN (11) Osteoarthritis: Comment: (+) Hx of bilateral knee arthroplasty - right knee in December 2010 and left knee on 07/18/2013 Code(s): M19.90 - Unspecified osteoarthritis, unspecified site Qualifiers: Osteoarthritis location: unspecified site Osteoarthritis type: primary Qualified Code(s): M19.91 - Primary osteoarthritis, unspecified site Plan: Was on Tramadol 50 mg TID PRN and Celecoxib 200 mg QD PRN in the past but she has been refusing to take most of her meds lately X-rays of the right shoulder done back in September 2019 showed (+) degenerative changes in the shoulder Follow up with orthopedics as scheduled (12) Overactive bladder: Code(s): N32.81 - Overactive bladder Plan: Follow up with urology as scheduled (13) Obesity (BMI 30-39.9): Code(s): E66.9 - Obesity, unspecified Plan: Reinforced diet; exercise and weight loss are unrealistic at this time given patient's significant cognitive decline Plan Follow up in 3 months Orders: Orders Complete Blood Count Auto Diff 3 Months D64.9 - Anemia, unspecified Lipid Panel 3 Months E78.00 - Pure hypercholesterolemia, unspecified Comprehensive [place]. Panel Fast 3 Months E78.00 - Pure hypercholesterolemia, unspecified Free T4 (Free Thyroxine) 3 Months E03.9 - Hypothyroidism, unspecified Thyroid Stimulating Hormone 3 Months E03.9 - Hypothyroidism, unspecified Hemoglobin A1c 3 Months E11.9 - Type 2 diabetes mellitus without complications Microalbumin, Random (w Creat) 3 Months E11.9 - Type 2 diabetes mellitus without complications UA CC w/rflx Micro + Cult 3 Months R30.0 - Dysuria Vitamin D 25-OH Total 3 Months E55.9 - Vitamin D deficiency, unspecified Vitamin B12 and Folate 3 Months E53.8 - Deficiency of other specified B group vitamins Medications: New flash glucose sensor (FreeStyle David 2 Sensor kit) As directed 1 ea 2RF E11.9 - Type 2 diabetes mellitus without complications flash glucose scanning reader (FreeStyle David 2 [place]) As directed 2 ea 3RF E11.9 - Type 2 diabetes mellitus without complications Changed From insulin lispro protamin-lispro 100 unit/mL (75-25) (Humalog Mix 75-25(U-100)Insuln) 50 units (0.5 mL) subcut BID 90 days 90 mL 1RF E11.9 - Type 2 diabetes mellitus without complications, 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 To Humalog Mix 75-25(U-100)Insuln 100 unit/mL (75-25) (insulin lispro protamin-lispro) 60 units (0.6 mL) subcut BID 90 days 200 mL 1RF NS E11.9 - Type 2 diabetes mellitus without complications, Z79.4 - care home (current) use of insulin Coding Level of Care Code Est Pt Level 4 (36875) Diagnoses Type 2 diabetes mellitus without complication, with long-term current use of insulin E11.9; Z79.4 Diabetes mellitus complication status: without complication Diabetes mellitus termination clerk insulin use: with nursing home use Diabetes mellitus type: type 2 Dementia with behavioral disturbance F03.918 Essential hypertension I10 Pure hypercholesterolemia E78.00 Mild intermittent asthma without complication J45.20 Asthma complication type: uncomplicated Asthma persistence: intermittent Asthma severity: mild Acquired hypothyroidism E03.9 Gastroesophageal reflux disease without esophagitis K21.9 Esophagitis presence: without esophagitis Age-related osteoporosis without current pathological fracture M81.0 Osteoporosis type: age-related Presence of current pathological fracture: without current pathological fracture Vitamin D deficiency E55.9 Allergic rhinitis, unspecified seasonality, unspecified trigger J30.9 Allergic rhinitis seasonality: unspecified Allergic rhinitis trigger: unspecified Primary osteoarthritis, unspecified site M19.91 Osteoarthritis location: unspecified site Osteoarthritis type: primary Overactive bladder N32.81 Obesity (BMI 30-39.9) E66.9
[2024-01-05 16:09] VITALS: BP 142/68; PULSE 77; O2SAT 98; BMI 39.0
== END 2024-01-05 16:49 | disposition home or self-care (01) ==
PROVIDERS: PCP Internal Medicine; Visit Provider Internal Medicine
DX: E11.9 Type 2 diabetes mellitus without complications (principal); Z79.4 Long term (current) use of insulin; F03.918 Unspecified dementia, unspecified severity, with other behavioral disturbance; E66.9 Obesity, unspecified; Z68.39 Body mass index [BMI] 39.0-39.9, adult; E78.00 Pure hypercholesterolemia, unspecified; I10 Essential (primary) hypertension; J45.20 Mild intermittent asthma, uncomplicated; E03.9 Hypothyroidism, unspecified; K21.9 Gastro-esophageal reflux disease without esophagitis; M81.0 Age-related osteoporosis without current pathological fracture; E55.9 Vitamin D deficiency, unspecified
CPT/HCPCS: 99214

== ENCOUNTER 2024-04-10 08:33 | Outpatient (REF) | payer OTHER, SELFPAY ==
[2024-04-10 09:00] LABS: MANUAL DIFF FLAG NO
[2024-04-10 09:13] LABS: Basophils Percent Auto 0.3 % (0-2); Eosinophils Absolute Auto 0.1 X10*3/uL (0.0-0.4); Eosinophils Percent Auto 1.3 % (0-4); Hematocrit 43.7 % (37.0-47.0); Hemoglobin 13.4 g/dl (12.0-16.0); Imm Gran Abs Auto 0.01 X10*3/uL (0.00-0.03); Imm Gran Pct Auto 0.1 % (0.0-0.4); Lymphocytes Absolute Auto 2.8 X10*3/uL (1.2-4.9); Lymphocytes Percent Auto 41.2 % (20-40); Mean Corpuscular HGB Conc 30.7 g/dl (31.0-35.0); Mean Corpuscular Hemoglobin 26.6 pg (27.0-33.0); Mean Corpuscular Volume 86.9 fL (80.0-98.0); Mean Platelet Volume 10.1 fL (9.4-12.3); Monocytes Absolute Auto 0.3 X10*3/uL (0.1-1.2); Monocytes Percent Auto 4.7 % (2-11); Neutrophils Absolute Auto 3.5 x10*3/uL (2.0-8.3); Neutrophils Percent Auto 52.4 % (45-73); Platelet Count 298 X10*3/uL (160-400); Red Blood Count 5.03 X10*6/uL (4.20-5.50); White Blood Count 6.7 X10*3/uL (4.8-10.8)
[2024-04-10 09:23] LABS: Estimated Average Glucose 166 mg/dL; Hemoglobin A1c % 7.4 % (<6.0)
[2024-04-10 10:40] LABS: Alanine Aminotransferase 8 U/L (0-31); Alkaline Phosphatase 84 U/L (39-117); Anion Gap 9 (12-20); Aspartate Amino Transferase 11 U/L (5-31); Bilirubin Total 0.6 mg/dL (0.0-1.0); Blood Urea Nitrogen 17 mg/dL (9-16); Calcium 9.8 mg/dL (8.4-10.2); Carbon Dioxide 33 mmol/L (22-29); Chloride 104 mmol/L (96-108); Cholesterol 225 mg/dL (<200); Estimated Glomerular Filt Rate > 60; Glucose Fasting 165 mg/dL (60-99); HDL Cholesterol 56 mg/dL (>40); LDL Cholesterol Calculated 147 mg/dL (<100); Potassium 3.9 mmol/L (3.3-5.1); Sodium 142 mmol/L (135-145); Total Protein 7.7 g/dL (6.5-8.0); Triglycerides 110 mg/dL (<150)
[2024-04-10 11:00] LABS: Free T4 (Free Thyroxine) 0.93 ng/dL (0.71-1.85); Thyroid Stimulating Hormone 5.51 uIU/mL (0.32-4.0)
[2024-04-10 11:13] LABS: Folate 10.1 ng/mL (> or = 4.0); Vitamin B12 352 pg/mL (200-900)
[2024-04-10 12:08] LABS: Creatinine Urine 79.72 mg/dL; Microalbumin Urine < 5.0 mg/L
[2024-04-10 12:18] LABS: Appearance Urine Clear; Color Urine Yellow; Glucose Urine UA Negative (Negative); Leukocyte Esterase Urine Trace (Negative); Nitrite Urine Negative (Negative); PH 5.5 (5.0-9.0); Specific Gravity - Urine 1.015 (1.005-1.025); UMIC TRIGGER UACC YES; Urine Blood Negative (Negative); Urine Ketones Negative (Negative); Urine Protein Negative (Neg-Trace)
[2024-04-10 12:24] LABS: Bacteria Urine None Seen (None Seen); Hyaline Casts Urine 0-2 /LPF (0-2); RBC Urine 0-2 /HPF (0-2); Squamous Epithelial Cell Urine 0-2 /HPF (0-2); WBC Urine 0-5 /HPF (0-5)
== END 2024-04-10 08:34 | disposition home or self-care (01) ==
LOC: HO.LAB 08:33
PROVIDERS: PCP Internal Medicine; Visit Provider Internal Medicine
DX: D64.9 Anemia, unspecified (principal); E03.9 Hypothyroidism, unspecified; E11.9 Type 2 diabetes mellitus without complications; E55.9 Vitamin D deficiency, unspecified; E53.8 Deficiency of other specified B group vitamins; E78.00 Pure hypercholesterolemia, unspecified
CPT/HCPCS: 36415; 80053; 80061; 81001; 81003; 82043; 82306; 82570; 82607; 82746; 83036; 84439; 84443; 85025

== ENCOUNTER 2024-04-17 15:56 | Outpatient (AMB) | payer OTHER, SELFPAY ==
--- NOTE | 2024-04-17 15:57 | MHC.PC.OV ---
Vital Signs 04/17/24 16:02 Height 5 ft 3 in Weight 217 lb BMI 38.4 BP 118/64 Blood Pressure Location Lt brachial Position Sitting Pulse 66 Pulse Source Pulse Oximeter Pulse Oximetry (%) 90 L Oxygen Delivery Method Room Air Intake Visit Reasons: dementia, DM, hyperlipidemia, hypothyroidism Intake Note: Patient is here to follow up on Dementia, DM, HLD, Hypothyroidism. Complaint of coughing, headache, fever?, sore throat and red eyes in both eye but right is worse started 04/16/24. No OTC tried. Precision Layout Worker Required: Yes Precision Layout Worker Language: Insurance Attorney Name: Elayne (Daughter) Information Interpreted: non-clinical & clinical Math And Science Division Chair: Present Accompanied by: Daughter Allergies No Known Allergies Allergy (Verified 04/17/24 16:32) Medication List - Last Reconciled 04/17/24 by Jaime Pugh MD acetazolamide 250 mg PO DAILY 90 days albuterol sulfate 90 mcg/actuation (Ventolin HFA) 2 puffs inhalation Q6H PRN [bed pads As directed] [BEDSIDE COMMODE As directed] blood sugar diagnostic As directed blood sugar diagnostic (OneTouch Ultra Test strips) USE TWICE DAILY DIRECTED blood-glucose meter twice a day chair, wheel (Wheel chair) As directed cholecalciferol (vitamin D3) 1,250 mcg PO QWEEK coenzyme Q10 (Co Q-10) 100 mg PO DAILY 90 days donepezil 10 mg PO BEDTIME 30 days [ELECTRIC WHEELCHAIR As directed] [EPP MATTRESS As directed - FOR INDEFINITE USE] ergocalciferol (vitamin D2) 1,250 mcg PO QWEEK 90 days famotidine 20 mg PO BID flash glucose scanning reader (FreeStyle David 2 [place]) As directed flash glucose sensor (FreeStyle David 2 Sensor kit) As directed fluticasone furoate-vilanterol 100-25 mcg/dose (Breo Ellipta) 1 ea PO DAILY [FRONT-WHEELED WALKER (large) As directed] [HOSPITAL BED As directed] Humalog Mix 75-25(U-100)Insuln 100 unit/mL (75-25) (insulin lispro protamin-lispro) 60 units (0.6 mL) subcut BID 90 days NS hydrochlorothiazide 12.5 mg PO DAILY 90 days insulin syringe-needle U-100 (BD Insulin Syringe Ultra-Fine) USE 1 MISCELLANEOUS 2 TIMES A DAY insulin syringe-needle U-100 (BD Insulin Syringe Ultra-Fine) use twice a day Januvia (sitagliptin phosphate) 100 mg PO DAILY 90 days NS lamotrigine 25 mg PO DAILY@1200 30 days levothyroxine 25 mcg PO DAILY [LIGHT TRANSFER WHEELCHAIR As directed] loratadine 10 mg PO DAILY PRN 90 days metoprolol succinate ER 50 mg See Protocol PO DAILY 30 days mometasone 50 mcg/actuation 2 sprays intranasal DAILY multivitamin 1 tab PO DAILY 90 days omeprazole 40 mg (2 x 20 mg) PO DAILY polyethylene glycol 3350 17 grams PO DAILY [RAISED TOILET SEAT As directed] rosuvastatin 40 mg PO DAILY 90 days sennosides-docusate sodium 8.6-50 mg (Senna Plus) 1 tab PO BEDTIME Tobacco use date assessed: 01/05/24 Fall risk assessment: No Falls in past year Last assessed Fall Risk: 04/17/24 Dental Screening Dental Screen Date: 04/17/24 Did you have a dental visit in the last 12 months?: No Did you have a dental problem in the last 6 months where you did not have access to dental care?: No Was dental information given to patient?: No HPI dementia, DM, hyperlipidemia, hypothyroidism HPI Details Patient comes in today for her follow up visit Her daughter states that patient has been complaining of sore throat, congestion and itchy eyes since yesterday Patient also keeps telling her she feels feverish but her daughter is not sure about this Her daughter states that patient sometimes still refuses to take her medications and comply with her diet States that with patient's dementia, it is getting more difficult to convince her to take her medications regularly and she often has to resort to telling patient that they are just vitamins to get her to agree to take her medications Patient has not been exhibiting any aggressive tendencies or other concerning behavioral issues as before She denies any headaches or dizziness Denies any chest pains, no shortness of breath No nausea /vomiting, no abdominal pain No change in bowel habits noted Had her follow-up labs done last week - to discuss her results [facility] Medical History Acquired hypothyroidism Obesity (BMI 30-39.9) Diabetes mellitus Respiratory failure with hypercapnia SAVANNAH (obstructive sleep apnea) COPD (chronic obstructive pulmonary disease) Dementia with behavioral disturbance Asthma Otitis externa Elevated TSH Pain in left knee Morbid obesity with BMI of 45.0-49.9, adult Overactive bladder Umbilical hernia without obstruction and without gangrene Osteoarthritis Memory impairment Vitamin D deficiency Allergic rhinitis Osteoporosis GERD (gastroesophageal reflux disease) Pure hypercholesterolemia Essential hypertension Surgical History History of total left knee replacement History of total right knee replacement History of hysterectomy History of arthroplasty of left knee History of arthroplasty of right knee Family History Father Diabetes Cancer Mother Diabetes Social History Household Members: None Housing: Apartment Do you presently have visiting nurse or other home services: Yes (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[employer]) Unable to assess alcohol history related to: Unable to respond and Unknown Alcohol intake: never Comment: 1:1 sitter Patient Tobacco Use Status: Former Tobacco user Tobacco use type: Cigarette Years Smoked: 50 e-Cigarette/Vaping Use: Never Used Second Hand Smoke Exposure: No service: No Current occupational status: disabled Sexual orientation: Straight/Heterosexual Cognitive needs: Yes (cane) Hearing needs: Yes (hearing aide) Vision needs: Yes (glasses) Questionnaire Thrive Questionnaire Date Thrive assessed: 01/05/24 OSVALDO-7 AMB Questionnaire OSVALDO-7 Date OSVALDO - 7 assessed: 01/05/24 Source: Developed by Drs. Urban Chaudhary, Deanne Beatty, Sukh Lopez and colleagues, with an educational antonio from [employer]. Review of Systems Const Details: Patient continues to have some ongoing confusion and most of her information here is obtained from patient's daughter Denies fatigue, Reports fever(s) and Denies headache(s) Eyes Reports itchy eyes ENT Denies dysphagia, Denies dizziness, Denies otalgia, Denies headache(s), Reports nasal congestion, Denies neck pain, Denies odynophagia and Reports sore throat Card Denies chest pain, Denies palpitations and Reports dyspnea on exertion (mild, chronic) Resp Denies chest congestion, Denies cough, Reports dyspnea on exertion (mild, chronic) and Denies wheezing GI Denies abdominal pain, Denies constipation, Denies dysphagia, Denies heartburn, Denies diarrhea, Denies nausea, Denies odynophagia and Denies vomiting Denies difficulty voiding, Denies dysuria and Reports urinary incontinence Musc Reports arthralgias (over the right shoulder and left knee, on and off) and Denies neck pain Skin/Breast Denies rash Neuro Reports behavioral changes (on and off), Reports confusion, Denies dizziness, Denies headache(s) and Reports memory loss Psych Details: refusing to drink her meds and also refusing to eat and/or drink at times Reports anxiety, Reports behavioral changes (on and off), Reports confusion and Reports memory loss Endo Denies fatigue and Denies palpitations Aller/Immun Reports itchy eyes and Denies wheezing Physical exam (Primary Care) Vital Signs: Last Vital Signs Pulse 66 04/17/24 16:02 BP 118/64 04/17/24 16:02 Pulse Ox 90 L 04/17/24 16:02 Oxygen Delivery Method Room Air 04/17/24 16:02 BMI result Body Mass Index 38.4 Tobacco/Smoking Status: Tobacco use Status Tobacco use date assessed 01/05/24 04/17/24 16:04 Patient Tobacco Use Status Former Tobacco user 04/17/24 16:04 Tobacco use type Cigarette 04/17/24 16:04 e-Cigarette/Vaping Use Never Used 04/17/24 16:04 Thrive Assessment: Date of Thrive Assessment Date Thrive assessed 01/05/24 04/17/24 16:04 Const General: confusion Orientation/consciousness: confusion HENMT Ears: TM's normal bilaterally and EAC's normal Throat: Yes posterior oropharynx normal and Yes tonsils normal (no TP congestion) Neck Neck: Yes no lymphadenopathy, Yes no meningeal signs and Yes supple Thyroid: Thyroid normal Resp Auscultation: no crackles, no rales, no wheezes and diminished lung sounds (slightly) bilateral Cardio Rate: regular rate Rhythm: regular rhythm Heart sounds: no murmurs GI Palpation (GI): Soft to palpation and nontender Auscultation: normal bowel sounds General: Yes no CVA tenderness Back/Spine/Pelvis Back: no CVA tenderness Skin Rashes: no rashes Neuro General: no meningeal signs and confusion Extrem General: Yes no clubbing, cyanosis or edema Results Reviewed Results Reviewed: Laboratory Tests 04/10/24 04/10/24 08:55 08:58 WBC 6.7 Hgb 13.4 Hct 43.7 Plt Count 298 Sodium 142 Potassium 3.9 Creatinine 0.84 Estimated GFR > 60 Fasting Glucose 165 H Hemoglobin A1c % 7.4 H Calcium 9.8 AST 11 ALT 8 Triglycerides 110 Cholesterol 225 H LDL Cholesterol, Calc 147 H HDL Cholesterol 56 Vitamin B12 352 25-OH Vitamin D Total 30.0 L TSH 5.51 H Free T4 0.93 Ur Specific [place] 1.015 Urine Protein Negative Urine Glucose (UA) Negative Urine Blood Negative Urine Nitrite Negative Urine RBC 0-2 Microalb/Creat Ratio TNP Assessment and Plan Assessment & Plan (1) Diabetes mellitus: Code(s): E11.9 - Type 2 diabetes mellitus without complications Qualifiers: Diabetes mellitus complication status: without complication Diabetes mellitus long-term insulin use: with terminal superintendent use Diabetes mellitus type: type 2 Qualified Code(s): E11.9 - Type 2 diabetes mellitus without complications; 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 Plan: Her HgbA1c is at 7.4% on her labs done yesterday (was at 8.9% a few months ago) - goal is < 7.0% Patient still reportedly refuses to take her medications often but her daughter has been able to eventually convince her to take them, however she can get her to do so Reinforced diabetic diet Continue Humalog Mix 75/25 60 units SQ BID and Januvia 100 mg QD Patient's daughter is advised to continue to do her best to try to get patient to take her medications any way she can (2) Dementia with behavioral disturbance: Code(s): F03.918 - Unspecified dementia, unspecified severity, with other behavioral disturbance Plan: She required chemical restraint with antipsychotics and admission briefly to the geriatric psychiatry unit during her hospital admission last fall She has since been weaned off her psychiatric meds and released back to the care of her daughter and family, who are willing to care for her 24/05 Continue Trazodone 25 mg TID and Donepezil 10 mg Q HS although per her daughter, it is still difficult to get patient to take her meds regularly as she has been refusing to take her meds frequently - states that a lot of her meds gives her heartburns Follow up with psychiatry as scheduled Patient has also been referred to neurology for further evaluation and management and was seen by Dr. Umana back in May 2023 Was diagnosed then with Alzheimer's disease and started additionally on Memantine 5 mg BID but patient's daughter states that she would not even take the medication (3) Essential hypertension: Code(s): I10 - Essential (primary) hypertension Plan: Reinforced low sodium diet - goal is systolic BP of at least 130 to 140 mm or less Continue Metoprolol 50 mg QD and HCTZ 12.5 mg QD (4) Pure hypercholesterolemia: Code(s): E78.00 - Pure hypercholesterolemia, unspecified Plan: Results of patient's labs done yesterday reviewed and discussed with patient's daughter - her cholesterol numbers are still elevated and mostly unchanged from a few months ago Reinforced low cholesterol diet Continue Rosuvastatin 40 mg QD for now; patient takes Coenzyme Q-10 100 mg QD together with her Rosuvastatin to help minimize myalgias from her statin but it appears to be getting more and more difficult to get her to take her meds due to her recent behavioral changes and confusion Will recheck her labs and fasting lipids in 3 months for follow up (5) Asthma: Code(s): J45.909 - Unspecified asthma, uncomplicated Qualifiers: Asthma complication type: uncomplicated Asthma persistence: intermittent Asthma severity: mild Qualified Code(s): J45.20 - Mild intermittent asthma, uncomplicated Plan: Appears controlled at present Continue Breo Ellipta 100-25 mcg 1 inhalation QD and Albuterol HFA 2 inhalations Q 6 hours PRN She also has Albuterol nebulizer solution that she uses with her updraft device when needed Follow up with pulmonary as scheduled (6) Acquired hypothyroidism: Code(s): E03.9 - Hypothyroidism, unspecified Plan: Continue Levothyroxine 25 mcg QD Patient's daughter is reminded that patient's Levothyroxine should still be ideally taken first thing in the morning on an empty stomach and she is not supposed to drink or eat anything else other than water for the next 30 minutes Will recheck her TFTs in 3 months for follow up (7) GERD (gastroesophageal reflux disease): Code(s): K21.9 - Gastro-esophageal reflux disease without esophagitis Qualifiers: Esophagitis presence: without esophagitis Qualified Code(s): K21.9 - Gastro-esophageal reflux disease without esophagitis Plan: Dietary restrictions reinforced Continue Omeprazole 20 mg 2 capsules (40 mg) QD and Famotidine 20 mg BID (8) Osteoporosis: Comment: S/P Alendronate x 5 yrs Code(s): M81.0 - Age-related osteoporosis without current pathological fracture Qualifiers: Osteoporosis type: age-related Presence of current pathological fracture: without current pathological fracture Qualified Code(s): M81.0 - Age-related osteoporosis without current pathological fracture Plan: Repeat BMD done on 05/22/2022 revealed (+) osteoporosis based on the lowest T-score value of -2.6 in the lumbar spine applying World Health Organization criteria - BMD appears mostly unchanged from his previous BMD done on 09/20/2017 S/P Alendronate Rx x 5 yrs - Rx was stopped last year Fall precautions reinforced Have reminded patient's daughter to make sure patient is on daily Vitamin D and calcium supplements daily but it is getting difficult to get patient to take her meds regularly Will continue to monitor her BMD every 2 to 3 years (9) Vitamin D deficiency: Code(s): E55.9 - Vitamin D deficiency, unspecified Plan: Continue Vitamin D 94778 units once a week (10) Allergic rhinitis: Code(s): J30.9 - Allergic rhinitis, unspecified Qualifiers: Allergic rhinitis seasonality: unspecified Allergic rhinitis trigger: unspecified Qualified Code(s): J30.9 - Allergic rhinitis, unspecified Plan: Continue Nasonex nasal spray and OTC Loratadine 10 mg QD PRN (11) Upper respiratory tract infection: Code(s): J06.9 - Acute upper respiratory infection, unspecified Qualifiers: URI type: unspecified URI Qualified Code(s): J06.9 - Acute upper respiratory infection, unspecified Plan: Have advised patient's daughter that patient's symptoms are mostly due to allergies but as it is impossible to ascertain how patient exactly feels due to her dementia, will go ahead and start her empirically on Azithromycin x 5 days (12) Osteoarthritis: Comment: (+) Hx of bilateral knee arthroplasty - right knee in December 2010 and left knee on 07/18/2013 Code(s): M19.90 - Unspecified osteoarthritis, unspecified site Qualifiers: Osteoarthritis location: unspecified site Osteoarthritis type: primary Qualified Code(s): M19.91 - Primary osteoarthritis, unspecified site Plan: She was on Tramadol 50 mg TID PRN and Celecoxib 200 mg QD PRN in the past but she has been refusing to take most of her meds lately X-rays of the right shoulder done back in September 2019 showed (+) degenerative changes in the shoulder Follow up with orthopedics as scheduled (13) Overactive bladder: Code(s): N32.81 - Overactive bladder Plan: Follow up with urology as scheduled (14) Obesity (BMI 30-39.9): Code(s): E66.9 - Obesity, unspecified Plan: Reinforced diet; exercise and weight loss are unrealistic at this time given patient's significant cognitive decline Plan Follow up in 3 months Orders: Orders Hemoglobin A1c 3 Months E11.9 - Type 2 diabetes mellitus without complications Lipid Panel 3 Months E78.00 - Pure hypercholesterolemia, unspecified Complete Blood Count Auto Diff 3 Months D64.9 - Anemia, unspecified Comprehensive [place]. Panel Fast 3 Months E78.00 - Pure hypercholesterolemia, unspecified Medications: New azithromycin take 500 mg today (day 1), then 250 mg for 4 days (days 2-5) PO 6 tabs 0RF azithromycin take 500 mg today (day 1), then 250 mg for 4 days (days 2-5) PO 6 tabs 0RF Coding Level of Care Code Est Pt Level 4 (59460) Diagnoses Type 2 diabetes mellitus without complication, with long-term current use of insulin E11.9; Z79.4 Diabetes mellitus complication status: without complication Diabetes mellitus long-term insulin use: with long-term use Diabetes mellitus type: type 2 Dementia with behavioral disturbance F03.918 Essential hypertension I10 Pure hypercholesterolemia E78.00 Mild intermittent asthma without complication J45.20 Asthma complication type: uncomplicated Asthma persistence: intermittent Asthma severity: mild Acquired hypothyroidism E03.9 Gastroesophageal reflux disease without esophagitis K21.9 Esophagitis presence: without esophagitis Age-related osteoporosis without current pathological fracture M81.0 Osteoporosis type: age-related Presence of current pathological fracture: without current pathological fracture Vitamin D deficiency E55.9 Allergic rhinitis, unspecified seasonality, unspecified trigger J30.9 Allergic rhinitis seasonality: unspecified Allergic rhinitis trigger: unspecified Upper respiratory tract infection, unspecified type J06.9 URI type: unspecified URI Primary osteoarthritis, unspecified site M19.91 Osteoarthritis location: unspecified site Osteoarthritis type: primary Overactive bladder N32.81 Obesity (BMI 30-39.9) E66.9
[2024-04-17 16:02] VITALS: BP 118/64; PULSE 66; O2SAT 90; BMI 38.4
== END 2024-04-17 16:59 | disposition home or self-care (01) ==
LOC: HO.HMGH 15:56
PROVIDERS: PCP Internal Medicine; Visit Provider Internal Medicine
DX: E11.9 Type 2 diabetes mellitus without complications (principal); Z79.4 Long term (current) use of insulin; F03.918 Unspecified dementia, unspecified severity, with other behavioral disturbance; I10 Essential (primary) hypertension; E78.00 Pure hypercholesterolemia, unspecified; J45.20 Mild intermittent asthma, uncomplicated; E03.9 Hypothyroidism, unspecified; K21.9 Gastro-esophageal reflux disease without esophagitis; M81.0 Age-related osteoporosis without current pathological fracture; E55.9 Vitamin D deficiency, unspecified; J30.9 Allergic rhinitis, unspecified; J06.9 Acute upper respiratory infection, unspecified
CPT/HCPCS: 99214

== ENCOUNTER 2024-07-13 15:20 | Outpatient (AMB) | payer OTHER, SELFPAY ==
[2024-07-13 15:34] VITALS: BP 120/68; PULSE 66; O2SAT 91; BMI 39.0
--- NOTE | 2024-07-13 15:34 | MHC.OFFVIS ---
Vital Signs 07/13/24 15:34 Height 5 ft 3 in Weight 220 lb 7.396 oz BMI 39.0 BP 120/68 Blood Pressure Location Lt brachial Position Sitting Pulse 66 Pulse Source Pulse Oximeter Pulse Oximetry (%) 91 L Oxygen Delivery Method Room Air Intake Visit Reasons: copd Intake Note: pt is here for follow up and has oxygen in the house Property Disposal Manager Required: No Allergies No Known Allergies Allergy (Verified 07/13/24 15:58) Medication List - Last Reconciled 07/13/24 by Lester Singh MD acetazolamide 250 mg PO DAILY 90 days albuterol sulfate 90 mcg/actuation (Ventolin HFA) 2 puffs inhalation Q6H PRN [bed pads As directed] [BEDSIDE COMMODE As directed] blood sugar diagnostic As directed blood sugar diagnostic (Liboxuch Ultra Test strips) USE TWICE DAILY DIRECTED blood-glucose meter twice a day chair, wheel (Wheel chair) As directed cholecalciferol (vitamin D3) 1,250 mcg PO QWEEK coenzyme Q10 (Co Q-10) 100 mg PO DAILY 90 days donepezil 10 mg PO BEDTIME 30 days [ELECTRIC WHEELCHAIR As directed] [EPP MATTRESS As directed - FOR INDEFINITE USE] ergocalciferol (vitamin D2) 1,250 mcg PO QWEEK 90 days famotidine 20 mg PO BID flash glucose scanning reader (FreeStyle David 2 [place]) As directed flash glucose sensor (FreeStyle David 2 Sensor kit) As directed fluticasone furoate-vilanterol 100-25 mcg/dose (Breo Ellipta) 1 ea PO DAILY [FRONT-WHEELED WALKER (large) As directed] [HOSPITAL BED As directed] Humalog Mix 75-25(U-100)Insuln 100 unit/mL (75-25) (insulin lispro protamin-lispro) 60 units (0.6 mL) subcut BID 90 days NS hydrochlorothiazide 12.5 mg PO DAILY 90 days insulin syringe-needle U-100 (BD Insulin Syringe Ultra-Fine) USE 1 MISCELLANEOUS 2 TIMES A DAY insulin syringe-needle U-100 (BD Insulin Syringe Ultra-Fine) use twice a day Januvia (sitagliptin phosphate) 100 mg PO DAILY 90 days NS lamotrigine 25 mg PO DAILY@1200 30 days levothyroxine 25 mcg PO DAILY [LIGHT TRANSFER WHEELCHAIR As directed] loratadine 10 mg PO DAILY PRN 90 days metoprolol succinate ER 50 mg See Protocol PO DAILY 30 days mometasone 50 mcg/actuation 2 sprays intranasal DAILY multivitamin 1 tab PO DAILY 90 days omeprazole 40 mg (2 x 20 mg) PO DAILY polyethylene glycol 3350 17 grams PO DAILY [RAISED TOILET SEAT As directed] rosuvastatin 40 mg PO DAILY 90 days sennosides-docusate sodium 8.6-50 mg (Senna Plus) 1 tab PO BEDTIME trazodone 25 mg (1/2 x 50 mg) PO TID Do you need a note to return to daycare/school/sports/work: No HPI HPI copd: Details: This 83 years old female is very pleasant, Kazakh-speaking lady, who is grossly obese and has chronic hypoventilation syndrome/ respiratory failure. She has not been able to tolerate the CPAP. She used to be on O2 2 L/minute at nighttime, and she stopped using it regularly. She was treated with acetazolamide 250 mg tablet daily, with that her pCO2 level had greatly improved. Because she has some dementia she forgets to take that pill every day. She does use Breo Ellipta 25 mg 1 inhalation daily. She has Ventolin at home but hardly needs to use it. She had overnight oximetry recording on 05/01/2024, and was found to have nocturnal hypoxemia with O2 sat below 88% for 23 minutes She is brought in by her daughter, walks slowly with the walker. She denies any active respiratory complaints at this time. [facility] Medical History Acquired hypothyroidism Obesity (BMI 30-39.9) Diabetes mellitus Respiratory failure with hypercapnia SAVANNAH (obstructive sleep apnea) COPD (chronic obstructive pulmonary disease) Dementia with behavioral disturbance Asthma Otitis externa Elevated TSH Pain in left knee Morbid obesity with BMI of 45.0-49.9, adult Overactive bladder Umbilical hernia without obstruction and without gangrene Osteoarthritis Memory impairment Vitamin D deficiency Allergic rhinitis Osteoporosis GERD (gastroesophageal reflux disease) Pure hypercholesterolemia Essential hypertension Surgical History History of total left knee replacement History of total right knee replacement History of hysterectomy History of arthroplasty of left knee History of arthroplasty of right knee Family History Father Diabetes Cancer Mother Diabetes Social History Household Members: None Housing: Apartment Do you presently have visiting nurse or other home services: Yes (DIRECTOR OF CASEWORK through [employer]) Unable to assess alcohol history related to: Unable to respond and Unknown Alcohol intake: never Comment: 1:1 sitter Patient Tobacco Use Status: Former Tobacco user Tobacco use type: Cigarette Years Smoked: 50 e-Cigarette/Vaping Use: Never Used Second Hand Smoke Exposure: No service: No Current occupational status: disabled Sexual orientation: Straight/Heterosexual Cognitive needs: Yes (cane) Hearing needs: Yes (hearing aide) Vision needs: Yes (glasses) Review of Systems Const Details: THE PATIENT DOES NOT VOICE ANY COMPLAINT. ACCORDING TO THE DAUGHTER SHE DOES HAVE MILD INTERMITTENT COUGH, NO RESPIRATORY DISTRESS. Unobtainable due to mental status and Other (PATIENT IS, ON ABLE TO ANSWER QUESTIONS. ) Physical Exam Vital Signs: Last Vital Signs Pulse 66 07/13/24 15:34 BP 120/68 07/13/24 15:34 Pulse Ox 91 L 07/13/24 15:34 Oxygen Delivery Method Room Air 07/13/24 15:34 BMI result Body Mass Index 39.0 Last Vital Signs Temp 98.7 F 03/20/23 07:27 Pulse 87 03/20/23 07:27 Resp 20 03/20/23 07:27 BP 108/62 03/20/23 07:27 Pulse Ox 93 03/20/23 07:27 O2 Del Method Nasal Cannula 03/20/23 07:27 O2 Flow Rate 2 03/20/23 07:27 FiO2 35 03/11/23 08:00 Oxygen Flow Rate 6 03/02/23 16:32 BMI result Body Mass Index 50.9 Const General: comfortable, no acute distress, alert and awake Orientation/consciousness: oriented to person and oriented to place HEENT Head: Yes normal to inspection General nose exam: No nasal polyps present and No nasal discharge present Face and sinus: Yes sinuses nontender Mouth: oropharynx abnormals (VERY NARROW AND CROWDED, MALLAMPATI SCALE 4) Throat: Yes posterior oropharynx normal Eyes General: appearance normal, both eyes and all related structures Neck Neck: Yes normal visual inspection, Yes no lymphadenopathy, Yes trachea midline, Yes no JVD and Yes other (NECK CIRCUMFERENCE 17-1/2 INCH) Thyroid: Thyroid normal Chest Chest palpation & inspection: normal inspection of the chest, normal palpation of entire chest wall and no tenderness Resp Other: PERCUSSION NOTE RESONANT, BREATH SOUNDS ARE SLIGHTLY DISTANT WITH PROLONGED EXPIRATORY PHASE. BREATH. SOUNDS DIMINISHED OVER THE BASILAR AREAS NO WHEEZES RHONCHI OR CREPITATIONS ARE HEARD. Cardio Palpation: normal PMI Rate: regular rate Rhythm: regular rhythm Heart sounds: no gallops and no murmurs GI Palpation (GI): Soft to palpation, nontender, No hepatosplenomegaly present and no masses Auscultation: normal bowel sounds Back/Spine/Pelvis Thoracic/Lumbar Spine: thoracic and lumbar spine normal to inspection and thoraco-lumbar ROM limited Skin General skin exam: no rashes or lesions noted and dry skin Neuro General: oriented to person, oriented to place, No gait normal (GAIT IS IMPAIRED AND UNSTABLE. SHE NEEDS WHEELED WALKER TO WALK) and no focal motor deficits Cranial nerves: Yes CN's II-XII intact bilaterally Extrem General: Yes normal to inspection, Yes no clubbing, cyanosis or edema and Yes no calf tenderness Psych Mental Status: mental status grossly normal Speech and movement: No Normal speech and movement present (DOES NOT VERBALIZE.) Results Reviewed Results Reviewed: VENOUS BLOOD GAS STUDY ON 12/23/2023 PH 7.44, PCO2 46, PO2 55 , MUCH IMPROVED FROM BEFORE. OVERNIGHT OXIMETRY RECORDING ON 05/01/2024 , O2 SAT BELOW 88% FOR 23 MINUTES Assessment & Plan Assessment & Plan (1) COPD (chronic obstructive pulmonary disease): Comment: CLINICALLY THIS PATIENT HAS CHRONIC BRONCHIAL ASTHMA/COPD. SHE PROBABLY ALSO HAVE SOME RESTRICTIVE LUNG DISEASE. SHE IS DOING VERY WELL AND HAS REMAINED STABLE . Code(s): J44.9 - Chronic obstructive pulmonary disease, unspecified Category: Medical Plan: ADVISED TO CONTINUE USING BREO 100-25 JUST 1 INHALATION DAILY. VENTOLIN HFA 2 PUFFS Q 6 HOURS ONLY P.R.N. FOR ACUTE RESPIRATORY DISTRESS (2) SAVANNAH (obstructive sleep apnea): Comment: PATIENT DOES HAVE HISTORY OF OBSTRUCTIVE SLEEP APNEA SINCE 2013 WHEN SHE HAD THE SLEEP STUDY. BUT SHE HAS NOT BEEN ABLE TO USE THE CPAP. CLAIMS THAT SHE IS SLEEPING OKAY. SHE HAS FEATURES OF CHRONIC HYPOVENTILATION SYNDROME, THAT HAS IMPROVED WITH THE USE OF ACETAZOLAMIDE 250 MG DAILY. HOWEVER SHE HAS TENDENCY TO MISS TAKING THIS MEDICATION. Code(s): G47.33 - Obstructive sleep apnea (adult) (pediatric) Category: Medical Plan: PATIENT HAS VISITING NURSE WHO, COMES TO THE HOUSE AND SUPERVISES HER INTAKE OF MEDS. ADVISE THAT SHE SHOULD TAKE ACETAZOLAMIDE 250 MG DAILY. (3) Respiratory failure with hypercapnia: Comment: SHE HAD MILD HYPOXEMIA AND HYPERCAPNIA WHEN HOSPITALIZED. O2 SAT DURING 6 MINUTES WALKING WAS NOTED TO BE NORMAL. OVERNIGHT OXIMETRY RECORDING DID SHOW THAT HER O2 SAT WAS BELOW 89% DURING THE NIGHT. RECENT OVERNIGHT OXIMETRY RECORDING SHOWS THAT HER O2 SAT IS BELOW 88% FOR 23 MINUTES, AND SHE QUALIFIES FOR USING OXYGEN AT NIGHT. Code(s): J96.92 - Respiratory failure, unspecified with hypercapnia Category: Medical Plan: ADVISED THE DAUGHTER TO EXPLAINED TO MOM AND SHE SHOULD USE O2 2 L/MINUTE AT NIGHT. Coding Level of Care Code Est Pt Level 3 (15722) Diagnoses COPD (chronic obstructive pulmonary disease) J44.9 SAVANNAH (obstructive sleep apnea) G47.33 Respiratory failure with hypercapnia J96.92
== END 2024-07-13 15:56 | disposition home or self-care (01) ==
PROVIDERS: PCP Internal Medicine; Visit Provider Internal Medicine
DX: J44.9 Chronic obstructive pulmonary disease, unspecified (principal); G47.33 Obstructive sleep apnea (adult) (pediatric); J96.92 Respiratory failure, unspecified with hypercapnia
CPT/HCPCS: 99213

== ENCOUNTER → 2024-07-13 15:20 | Outpatient (BNVA) | payer OTHER, SELFPAY | PROVIDERS: PCP Internal Medicine; Visit Provider Internal Medicine | DX: J96.92 Respiratory failure, unspecified with hypercapnia (principal); J44.9 Chronic obstructive pulmonary disease, unspecified; G47.33 Obstructive sleep apnea (adult) (pediatric) | CPT/HCPCS: 99212 ==

== ENCOUNTER 2024-07-24 10:47 | Outpatient (REF) | payer OTHER, SELFPAY ==
[2024-07-24 11:10] LABS: MANUAL DIFF FLAG NO
[2024-07-24 11:44] LABS: Basophils Percent Auto 0.4 % (0-2); Eosinophils Absolute Auto 0.1 X10*3/uL (0.0-0.4); Eosinophils Percent Auto 1.6 % (0-4); Hematocrit 46.6 % (37.0-47.0); Hemoglobin 14.5 g/dl (12.0-16.0); Imm Gran Abs Auto 0.01 X10*3/uL (0.00-0.03); Imm Gran Pct Auto 0.1 % (0.0-0.4); Lymphocytes Percent Auto 44.4 % (20-40); Mean Corpuscular HGB Conc 31.1 g/dl (31.0-35.0); Mean Corpuscular Hemoglobin 26.8 pg (27.0-33.0); Mean Platelet Volume 11.1 fL (9.4-12.3); Monocytes Absolute Auto 0.3 X10*3/uL (0.1-1.2); Monocytes Percent Auto 4.9 % (2-11); Neutrophils Absolute Auto 3.3 x10*3/uL (2.0-8.3); Neutrophils Percent Auto 48.6 % (45-73); Platelet Count 226 X10*3/uL (160-400); Red Blood Count 5.42 X10*6/uL (4.20-5.50); Red Cell Distribution Width 14.6 % (11.0-16.0); White Blood Count 6.7 X10*3/uL (4.8-10.8)
[2024-07-24 11:54] LABS: Estimated Average Glucose 189 mg/dL; Hemoglobin A1c % 8.2 % (<6.0); Total Hemoglobin (HGBA1C) 3537.1872 umol/L
[2024-07-24 12:32] LABS: Alanine Aminotransferase 12 U/L (0-31); Albumin Level 4.2 g/dL (3.5-5.0); Alkaline Phosphatase 93 U/L (39-117); Anion Gap 13 (12-20); Aspartate Amino Transferase 11 U/L (5-31); Bilirubin Total 0.8 mg/dL (0.0-1.0); Blood Urea Nitrogen 14 mg/dL (9-16); Calcium 10.1 mg/dL (8.4-10.2); Carbon Dioxide 30 mmol/L (22-29); Chloride 104 mmol/L (96-108); Cholesterol 214 mg/dL (<200); Estimated Glomerular Filt Rate > 60; Glucose Fasting 186 mg/dL (60-99); HDL Cholesterol 55 mg/dL (>40); LDL Cholesterol Calculated 133 mg/dL (<100); Potassium 3.9 mmol/L (3.3-5.1); Sodium 143 mmol/L (135-145); Total Protein 8.1 g/dL (6.5-8.0); Triglycerides 134 mg/dL (<150)
== END 2024-07-24 10:48 | disposition home or self-care (01) ==
LOC: HO.LAB 10:47
PROVIDERS: PCP Internal Medicine; Visit Provider Internal Medicine
DX: D64.9 Anemia, unspecified (principal); E11.9 Type 2 diabetes mellitus without complications; E78.00 Pure hypercholesterolemia, unspecified
CPT/HCPCS: 36415; 80053; 80061; 83036; 85025

== ENCOUNTER 2024-07-26 10:43 | Outpatient (REF) | payer OTHER, SELFPAY ==
--- NOTE | ~2024-07-26 | MM_ITS ---
EXAMINATION: MM SCREENING DIGITAL BREAST TOMOSYNTHESIS, BILATERAL CLINICAL INFORMATION: Screening. Asymptomatic. COMPARISON: Mammography: Comparison is made with available priors TECHNIQUE: Digital breast mammography with tomosynthesis is performed in both the craniocaudal and mediolateral oblique views along with computer-aided detection (CAD). FINDINGS: There are scattered areas of fibroglandular density (ACR BI-RADS breast composition Category b). There are no significant masses, abnormal calcifications, or other abnormalities. MM/MM tomosynthesis screening BI IMPRESSION: No mammographic evidence of malignancy. ASSESSMENT: BI-RADS BI-RADS 1 - Negative RECOMMENDATION: Routine annual mammography screening. 1 year F/U This examination should not preclude the clinical evaluation of a suspicious palpable abnormality. This patient's information was entered into a reminder system with a target due date for their next mammogram. Electronically signed by: Maya Schmidt DO 08/07/2024 05:15 PM EDT
== END 2024-07-26 10:44 | disposition home or self-care (01) ==
LOC: HO.MAMMO 10:43
PROVIDERS: PCP Internal Medicine; Visit Provider Internal Medicine
DX: Z12.31 Encounter for screening mammogram for malignant neoplasm of breast (principal)
CPT/HCPCS: 77063; 77067; 99212

== ENCOUNTER → 2024-07-26 11:15 | Outpatient (BNV) | payer OTHER, SELFPAY | PROVIDERS: PCP Internal Medicine; Visit Provider Internal Medicine | DX: Z12.31 Encounter for screening mammogram for malignant neoplasm of breast (principal) | CPT/HCPCS: 77063; 77067 ==

== ENCOUNTER 2024-07-26 15:51 | Outpatient (AMB) | payer OTHER, SELFPAY ==
[2024-07-26 16:35] VITALS: BP 128/78; PULSE 66; O2SAT 97; BMI 38.5
--- NOTE | 2024-07-26 16:35 | MHC.PC.OV ---
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 Required: No Accompanied by: Self / Same As Patient Allergies No Known Allergies Allergy (Verified 07/26/24 17:06) Medication List - Last Reconciled 07/26/24 by Jaime Pugh MD acetazolamide 250 mg PO DAILY 90 days albuterol sulfate 90 mcg/actuation (Ventolin HFA) 2 puffs inhalation Q6H PRN [bed pads As directed] [BEDSIDE COMMODE As directed] blood sugar diagnostic As directed blood sugar diagnostic ([employer] Ultra Test strips) USE TWICE DAILY DIRECTED blood-glucose meter twice a day chair, wheel (Wheel chair) As directed cholecalciferol (vitamin D3) 1,250 mcg PO QWEEK coenzyme Q10 (Co Q-10) 100 mg PO DAILY 90 days donepezil 10 mg PO BEDTIME 30 days [ELECTRIC WHEELCHAIR As directed] [EPP MATTRESS As directed - FOR INDEFINITE USE] ergocalciferol (vitamin D2) 1,250 mcg PO QWEEK 90 days famotidine 20 mg PO BID flash glucose scanning reader (FreeStyle David 2 [place]) As directed flash glucose sensor (FreeStyle David 2 Sensor kit) As directed fluticasone furoate-vilanterol 100-25 mcg/dose (Breo Ellipta) 1 ea PO DAILY [FRONT-WHEELED WALKER (large) As directed] [HOSPITAL BED As directed] Humalog Mix 75-25(U-100)Insuln 100 unit/mL (75-25) (insulin lispro protamin-lispro) 60 units (0.6 mL) subcut BID 90 days NS hydrochlorothiazide 12.5 mg PO DAILY 90 days insulin syringe-needle U-100 (BD Insulin Syringe Ultra-Fine) USE 1 MISCELLANEOUS 2 TIMES A DAY insulin syringe-needle U-100 (BD Insulin Syringe Ultra-Fine) use twice a day Januvia (sitagliptin phosphate) 100 mg PO DAILY 90 days NS lamotrigine 25 mg PO DAILY@1200 30 days levothyroxine 25 mcg PO DAILY [LIGHT TRANSFER WHEELCHAIR As directed] loratadine 10 mg PO DAILY PRN 90 days metoprolol succinate ER 50 mg See Protocol PO DAILY 30 days mometasone 50 mcg/actuation 2 sprays intranasal DAILY multivitamin 1 tab PO DAILY 90 days omeprazole 40 mg (2 x 20 mg) PO DAILY polyethylene glycol 3350 17 grams PO DAILY [RAISED TOILET SEAT As directed] rosuvastatin 40 mg PO DAILY 90 days sennosides-docusate sodium 8.6-50 mg (Senna Plus) 1 tab PO BEDTIME trazodone 25 mg (1/2 x 50 mg) PO TID Tobacco use date assessed: 07/26/24 Fall risk assessment: No Falls in past year Last assessed Fall Risk: 07/26/24 Dental Screening Dental Screen Date: 07/26/24 Did you have a dental visit in the last 12 months?: No Did you have a dental problem in the last 6 months where you did not have access to dental care?: No Was dental information given to patient?: No HPI 3mof\u HPI Details Patient comes in today for her follow up visit - information is obtained mostly from her daughter as patient has some cognitive impairment due to her dementia Her daughter states that it is now a lot easier to get patient to take her medications as she has been more cooperative in this aspect Patient denies any headaches or dizziness Denies any chest pains, no increased shortness of breath No nausea /vomiting, no abdominal pain No change in bowel habits noted She had her follow-up labs done a couple of days ago - to discuss her results She was seen by Dr. Singh a couple of weeks ago for follow up and they are trying to convince patient to use her oxygen at night when she sleeps as she does have nocturnal hypoxemia based on a recent overnight oximetry test They are also looking for Rx for a new wheelchair as one of the wheels on her old unit broke off recently [facility] Medical History (Updated 07/26/24 @ 19:31 by Jaime Pugh MD) Nocturnal hypoxemia Acquired hypothyroidism Obesity (BMI 30-39.9) Diabetes mellitus Respiratory failure with hypercapnia SAVANNAH (obstructive sleep apnea) COPD (chronic obstructive pulmonary disease) Dementia with behavioral disturbance Asthma Otitis externa Elevated TSH Pain in left knee Morbid obesity with BMI of 45.0-49.9, adult Overactive bladder Umbilical hernia without obstruction and without gangrene Osteoarthritis Memory impairment Vitamin D deficiency Allergic rhinitis Osteoporosis GERD (gastroesophageal reflux disease) Pure hypercholesterolemia Essential hypertension Surgical History History of total left knee replacement History of total right knee replacement History of hysterectomy History of arthroplasty of left knee History of arthroplasty of right knee Family History Father Diabetes Cancer Mother Diabetes Social History Household Members: None Housing: Apartment Do you presently have visiting nurse or other home services: Yes (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 1. Little interest or pleasure in doing things: not at all 2. Feeling down, depressed, or hopeless: not at all 3. Trouble falling or staying asleep, or sleeping too much: not at all 4. Feeling tired or having little energy: not at all 5. Poor appetite or overeating: not at all 6. Feeling bad about yourself - or that you are a failure or have let yourself or your family down: not at all 7. Trouble concentrating on things, such as reading the newspaper or watching television: not at all 8. Moving or speaking so slowly that other people could have noticed. Or the opposite - being so fidgety or restless that you have been moving around a lot more than usual: not at all 9. Thoughts that you would be better off or of hurting yourself in some way: not at all Total score: 0 Depression Screening Interpretation: Negative Depression Screening Done: Yes 63648 - PHQ-9 Billing: Yes Source: Developed by Drs. Urban Chaudhary, Deanne Sukh Ventura and colleagues, with an educational antonio from [employer]. Thrive Questionnaire Date Thrive assessed: 07/26/24 I am a: Patient What is your living situation today?: I have a steady place to live Within the past 12 months, did the food you bought not last and you didn't have the money to get more?: Never true Within the past 12 months, did you worry whether your food would run out before you got money to buy more?: Never true Do you have trouble paying for medicines?: No Do you have trouble getting transportation to medical appointments?: No Do you have trouble paying your heating and electricity bill?: No Do you have trouble taking care of your child, family member or friend?: No Do you have trouble with day-to-day activities such as bathing, preparing meals, shopping, managing finances, etc.?: No Are you currently unemployed and looking for a job?: No Are you interested in more education?: No Please select the resources that you would like help with: None Currently or been in a relationship where the following occur: No concerns reported THRIVE Score: 0 AUDIT C Alcohol Use Questionnaire (AUDIT-C) 1. How often do you have a drink containing alcohol?: Never 3. How often do you have six or more drinks on one occasion?: Never Total Score: 0 Score Reviewed/Action Taken: Yes OSVALDO-7 AMB Questionnaire OSVALDO-7 Date OSVALDO - 7 assessed: 07/26/24 Feeling nervous, anxious, or on edge: 0 = Not at all Not being able to stop or control worryin = Not at all Worrying too much about different things: 0 = Not at all Trouble relaxin = Not at all Being so restless that it is hard to sit still: 0 = Not at all Becoming easily annoyed or irritable: 0 = Not at all Feeling afraid as if something awful might happen: 0 = Not at all Total OSVALDO-7 score (0-4 normal; 5-9 mild; 10-14 moderate; 15-21 severe): 0 Source: Developed by Drs. Urban Chaudhary, Sukh Salgado and colleagues, with an educational antonio from [employer]. Review of Systems Const Details: Patient continues to have some ongoing confusion and most of her information here is obtained from patient's daughter Unobtainable due to mental status (most of her information here is obtained from patient's daughter) Denies fatigue, Reports fever(s) and Denies headache(s) ENT Denies dysphagia, Denies dizziness, Denies otalgia, Denies headache(s), Denies neck pain, Denies odynophagia and Denies sore throat Card Denies chest pain, Denies palpitations and Reports dyspnea on exertion (mild, chronic) Resp Denies chest congestion, Denies cough, Reports dyspnea on exertion (mild, chronic) and Denies wheezing GI Denies abdominal pain, Denies constipation, Denies dysphagia, Denies heartburn, Denies diarrhea, Denies nausea, Denies odynophagia and Denies vomiting Denies difficulty voiding, Denies dysuria and Reports urinary incontinence Musc Reports arthralgias (over the right shoulder and left knee, on and off) and Denies neck pain Skin/Breast Denies rash Neuro Reports behavioral changes (on and off), Reports confusion, Denies dizziness, Denies headache(s) and Reports memory loss Psych Reports anxiety, Reports behavioral changes (on and off), Reports confusion and Reports memory loss Endo Denies fatigue and Denies palpitations Aller/Immun Denies wheezing Physical exam (Primary Care) Vital Signs: Last Vital Signs Pulse 66 07/26/24 16:35 BP 128/78 07/26/24 16:35 Pulse Ox 97 07/26/24 16:35 Oxygen Delivery Method Room Air 07/26/24 16:35 BMI result Body Mass Index 38.5 Tobacco/Smoking Status: Tobacco use Status Tobacco use date assessed 07/26/24 07/26/24 16:40 Patient Tobacco Use Status Former Tobacco user 07/26/24 16:40 Tobacco use type Cigarette 07/26/24 16:40 e-Cigarette/Vaping Use Never Used 07/26/24 16:40 PHQ-9: PHQ-9 Score PHQ-9: Total score 0 07/26/24 17:07 Depression Screening Interpretation: Negative Thrive Assessment: Date of Thrive Assessment Date Thrive assessed 07/26/24 07/26/24 16:40 Currently or been in a relationship where the following occur: No concerns reported Const General: no acute distress and confusion Orientation/consciousness: confusion HENMT Ears: TM's normal bilaterally and EAC's normal Throat: Yes posterior oropharynx normal and Yes tonsils normal (no TP congestion) Neck Neck: Yes no lymphadenopathy and Yes supple Thyroid: Thyroid normal Resp Auscultation: no crackles, no rales, no wheezes and diminished lung sounds (slightly) bilateral Cardio Rate: regular rate Rhythm: regular rhythm Heart sounds: no murmurs GI Palpation (GI): Soft to palpation and nontender Auscultation: normal bowel sounds General: Yes no CVA tenderness Back/Spine/Pelvis Back: no CVA tenderness Skin Rashes: no rashes Neuro General: confusion Extrem General: Yes no clubbing, cyanosis or edema Results Reviewed Results Reviewed: Laboratory Tests 07/24/24 11:09 WBC 6.7 Hgb 14.5 Hct 46.6 Plt Count 226 Sodium 143 Potassium 3.9 Creatinine 0.86 Estimated GFR > 60 Fasting Glucose 186 H Hemoglobin A1c % 8.2 H Calcium 10.1 AST 11 ALT 12 Triglycerides 134 Cholesterol 214 H LDL Cholesterol, Calc 133 H HDL Cholesterol 55 Assessment and Plan Assessment & Plan (1) Diabetes mellitus: Code(s): E11.9 - Type 2 diabetes mellitus without complications Qualifiers: Diabetes mellitus type: type 2 Diabetes mellitus superintendent marine [employer] insulin use: with superintendent marine [employer] terminal use Diabetes mellitus complication status: without complication Qualified Code(s): E11.9 - Type 2 diabetes mellitus without complications; Z79.4 - superintendent marine [employer] terminal (current) use of insulin Plan: Her HgbA1c is up to 8.2% on her labs done a couple of days ago (was previously at 7.4% a few months ago) - goal is < 7.0% Reinforced diabetic diet (to patient's daughter) Continue Humalog Mix 75/25 60 units SQ BID and Januvia 100 mg QD (2) Dementia with behavioral disturbance: Code(s): F03.918 - Unspecified dementia, unspecified severity, with other behavioral disturbance Plan: She required chemical restraint with antipsychotics and admission briefly to the geriatric psychiatry unit during her hospital admission last fall She has since been weaned off her psychiatric meds and released back to the care of her daughter and family, who are willing to care for her 24/05 Continue Trazodone 25 mg TID and Donepezil 10 mg Q HS Follow up with psychiatry as scheduled Patient has also been referred to neurology for further evaluation and management and was seen by Dr. Umana back in May 2023 She was diagnosed then with Alzheimer's disease and started additionally on Memantine 5 mg BID but patient's daughter states that she would not even take the medication (3) Essential hypertension: Code(s): I10 - Essential (primary) hypertension Plan: Reinforced low sodium diet - goal is systolic BP of at least 130 to 140 mm or less Continue Metoprolol ER 50 mg QD and HCTZ 12.5 mg QD (4) Pure hypercholesterolemia: Code(s): E78.00 - Pure hypercholesterolemia, unspecified Plan: Results of patient's labs done a couple of days ago reviewed and discussed with patient's daughter - her cholesterol numbers are still elevated and have improved only minimally from previous Reinforced low cholesterol diet Continue Rosuvastatin 40 mg QD for now; patient takes Coenzyme Q-10 100 mg QD together with her Rosuvastatin to help minimize myalgias from her statin Will recheck her labs and fasting lipids in 3 months for follow up (5) Asthma: Code(s): J45.909 - Unspecified asthma, uncomplicated Qualifiers: Asthma severity: mild Asthma persistence: intermittent Asthma complication type: uncomplicated Qualified Code(s): J45.20 - Mild intermittent asthma, uncomplicated Plan: Appears controlled at present Continue Breo Ellipta 100-25 mcg 1 inhalation QD and Albuterol HFA 2 inhalations Q 6 hours PRN She also has Albuterol nebulizer solution that she uses with her updraft device when needed Follow up with pulmonary as scheduled (6) Nocturnal hypoxemia: Code(s): G47.34 - Idiopathic sleep related nonobstructive alveolar hypoventilation Plan: Patient had mild hypoxemia and hypercapnia when she was hospitalized last year Oxygen saturation during 6 minutes of walking stayed normal; overnight oximetry done recently showed oxygen saturation staying below 88% for 23 minutes and she qualifies for oxygen use at night Her daughter is now trying to convince patient to agree to using oxygen at night and they will reach out to Dr. Singh's office once patient agrees to this (7) SAVANNAH (obstructive sleep apnea): Comment: PATIENT DOES HAVE HISTORY OF OBSTRUCTIVE SLEEP APNEA SINCE 2013 WHEN SHE HAD THE SLEEP STUDY. BUT SHE HAS NOT BEEN ABLE TO USE THE CPAP. CLAIMS THAT SHE IS SLEEPING OKAY. SHE HAS FEATURES OF CHRONIC HYPOVENTILATION SYNDROME, THAT HAS IMPROVED WITH THE USE OF ACETAZOLAMIDE 250 MG DAILY. HOWEVER SHE HAS TENDENCY TO MISS TAKING THIS MEDICATION. Code(s): G47.33 - Obstructive sleep apnea (adult) (pediatric) Plan: (+) SAVANNAH - sleep study done in 2013 Patient has not been able to use her CPAP device and claims that she sleeps okay without the device She reportedly has features of chronic hypoventilation syndrome and was instead started on Acetazolamide, which has helped improve her symptoms Continue Acetazolamide 250 mg QD Follow up with pulmonary / sleep medicine as scheduled (8) Acquired hypothyroidism: Code(s): E03.9 - Hypothyroidism, unspecified Plan: Continue Levothyroxine 25 mcg QD Will recheck her TFTs in 3 months for follow up (9) GERD (gastroesophageal reflux disease): Code(s): K21.9 - Gastro-esophageal reflux disease without esophagitis Qualifiers: Esophagitis presence: without esophagitis Qualified Code(s): K21.9 - Gastro-esophageal reflux disease without esophagitis Plan: Dietary restrictions reinforced Continue Omeprazole 20 mg 2 capsules (40 mg) QD and Famotidine 20 mg BID (10) Osteoporosis: Comment: S/P Alendronate x 5 yrs Code(s): M81.0 - Age-related osteoporosis without current pathological fracture Qualifiers: Osteoporosis type: age-related Presence of current pathological fracture: without current pathological fracture Qualified Code(s): M81.0 - Age-related osteoporosis without current pathological fracture Plan: Repeat BMD done on 05/22/2022 revealed (+) osteoporosis based on the lowest T-score value of -2.6 in the lumbar spine applying World Health Organization criteria - BMD appears mostly unchanged from his previous BMD done on 09/20/2017 S/P Alendronate Rx x 5 yrs - Rx was stopped last year Fall precautions reinforced Have reminded patient's daughter to make sure patient is on daily Vitamin D and calcium supplements daily Will continue to monitor her BMD every 2 to 3 years (11) Vitamin D deficiency: Code(s): E55.9 - Vitamin D deficiency, unspecified Plan: Continue Vitamin D 16894 units once a week (12) Allergic rhinitis: Code(s): J30.9 - Allergic rhinitis, unspecified Qualifiers: Allergic rhinitis trigger: unspecified Allergic rhinitis seasonality: unspecified Qualified Code(s): J30.9 - Allergic rhinitis, unspecified Plan: Continue Nasonex nasal spray and OTC Loratadine 10 mg QD PRN (13) Osteoarthritis: Comment: (+) Hx of bilateral knee arthroplasty - right knee in December 2010 and left knee on 07/18/2013 Code(s): M19.90 - Unspecified osteoarthritis, unspecified site Qualifiers: Osteoarthritis location: unspecified site Osteoarthritis type: primary Qualified Code(s): M19.91 - Primary osteoarthritis, unspecified site Plan: She was on Tramadol 50 mg TID PRN and Celecoxib 200 mg QD PRN in the past but she has been refusing to take most of her meds lately X-rays of the right shoulder done back in September 2019 showed (+) degenerative changes in the shoulder Follow up with orthopedics as scheduled (14) Overactive bladder: Code(s): N32.81 - Overactive bladder Plan: Follow up with urology as scheduled (15) Obesity (BMI 30-39.9): Code(s): E66.9 - Obesity, unspecified Plan: Reinforced diet; exercise and weight loss are unrealistic at this time given patient's significant cognitive decline Plan Follow up in 3 months Orders: Orders Lipid Panel 3 Months E78.00 - Pure hypercholesterolemia, unspecified Hemoglobin A1c 3 Months E11.9 - Type 2 diabetes mellitus without complications UA CC w/rflx Micro + Cult 3 Months R30.0 - Dysuria Microalbumin, Random (w Creat) 3 Months E11.9 - Type 2 diabetes mellitus without complications Vitamin D 25-OH Total 3 Months E55.9 - Vitamin D deficiency, unspecified Vitamin B12 and Folate 4 Months E53.8 - Deficiency of other specified B group vitamins Complete Blood Count Auto Diff 3 Months D64.9 - Anemia, unspecified Comprehensive [place]. Panel Fast 3 Months E78.00 - Pure hypercholesterolemia, unspecified Free T4 (Free Thyroxine) 3 Months E03.9 - Hypothyroidism, unspecified Thyroid Stimulating Hormone 3 Months E03.9 - Hypothyroidism, unspecified Medications: New [WHEELCHAIR] As directed 1 ea 0RF M19.91 - Primary osteoarthritis, unspecified site, M47.816 - Spondylosis without myelopathy or radiculopathy, lumbar region Coding Level of Care Code Est Pt Level 4 (47730) Complex EM visit Add On G2211 Diagnoses Type 2 diabetes mellitus without complication, with long-term current use of insulin E11.9; Z79.4 Diabetes mellitus type: type 2 Diabetes mellitus [employer] insulin use: with superintendent [employer] use Diabetes mellitus complication status: without complication Dementia with behavioral disturbance F03.918 Essential hypertension I10 Pure hypercholesterolemia E78.00 Mild intermittent asthma without complication J45.20 Asthma severity: mild Asthma persistence: intermittent Asthma complication type: uncomplicated Nocturnal hypoxemia G47.34 SAVANNAH (obstructive sleep apnea) G47.33 Acquired hypothyroidism E03.9 Gastroesophageal reflux disease without esophagitis K21.9 Esophagitis presence: without esophagitis Age-related osteoporosis without current pathological fracture M81.0 Osteoporosis type: age-related Presence of current pathological fracture: without current pathological fracture Vitamin D deficiency E55.9 Allergic rhinitis, unspecified seasonality, unspecified trigger J30.9 Allergic rhinitis trigger: unspecified Allergic rhinitis seasonality: unspecified Primary osteoarthritis, unspecified site M19.91 Osteoarthritis location: unspecified site Osteoarthritis type: primary Overactive bladder N32.81 Obesity (BMI 30-39.9) E66.9
== END 2024-07-26 17:29 | disposition home or self-care (01) ==
PROVIDERS: PCP Internal Medicine; Visit Provider Internal Medicine
DX: E11.9 Type 2 diabetes mellitus without complications (principal); Z79.4 Long term (current) use of insulin; F03.918 Unspecified dementia, unspecified severity, with other behavioral disturbance; E66.9 Obesity, unspecified; Z68.38 Body mass index [BMI] 38.0-38.9, adult; I10 Essential (primary) hypertension; E78.00 Pure hypercholesterolemia, unspecified; J45.20 Mild intermittent asthma, uncomplicated; G47.34 Idiopathic sleep related nonobstructive alveolar hypoventilation; G47.33 Obstructive sleep apnea (adult) (pediatric); E03.9 Hypothyroidism, unspecified; K21.9 Gastro-esophageal reflux disease without esophagitis; M81.0 Age-related osteoporosis without current pathological fracture

== ENCOUNTER 2024-11-22 09:28 | Outpatient (REF) | payer OTHER, SELFPAY ==
--- NOTE | ~2024-11-22 | XR_ITS ---
CLINICAL HISTORY: M25.512 - Pain in left shoulder Left shoulder three views Comparison: None Findings: Moderate degenerative arthritis glenohumeral joint. Previous resection distal clavicle. Mild degenerative changes undersurface of the acromion. No acute fracture or dislocation. Soft tissues intact. Impression: Moderate degenerative arthritis left shoulder. Previous resection distal clavicle. This document has been electronically signed by: Lucius Braga MD on 11/23/2024 12:51:24
[2024-11-22 09:57] LABS: MANUAL DIFF FLAG NO
[2024-11-22 11:07] LABS: Basophils Percent Auto 0.1 % (0-2); Eosinophils Percent Auto 0.3 % (0-4); Hematocrit 41.8 % (37.0-47.0); Hemoglobin 13.2 g/dl (12.0-16.0); Imm Gran Abs Auto 0.03 X10*3/uL (0.00-0.03); Imm Gran Pct Auto 0.3 % (0.0-0.4); Lymphocytes Absolute Auto 1.2 X10*3/uL (1.2-4.9); Lymphocytes Percent Auto 12.5 % (20-40); Mean Corpuscular HGB Conc 31.6 g/dl (31.0-35.0); Mean Corpuscular Hemoglobin 26.8 pg (27.0-33.0); Mean Corpuscular Volume 84.8 fL (80.0-98.0); Mean Platelet Volume 10.6 fL (9.4-12.3); Monocytes Absolute Auto 0.3 X10*3/uL (0.1-1.2); Monocytes Percent Auto 2.8 % (2-11); Neutrophils Absolute Auto 8.2 x10*3/uL (2.0-8.3); Platelet Count 264 X10*3/uL (160-400); Red Blood Count 4.93 X10*6/uL (4.20-5.50); White Blood Count 9.8 X10*3/uL (4.8-10.8)
[2024-11-22 11:15] LABS: Estimated Average Glucose 214 mg/dL; Hemoglobin A1C 260.4757 umol/L; Hemoglobin A1c % 9.1 % (<6.0)
[2024-11-22 11:47] LABS: Alanine Aminotransferase 9 U/L (0-31); Albumin Level 3.9 g/dL (3.5-5.0); Alkaline Phosphatase 93 U/L (39-117); Anion Gap 12 (12-20); Aspartate Amino Transferase 18 U/L (5-31); Bilirubin Total 0.6 mg/dL (0.0-1.0); Blood Urea Nitrogen 20 mg/dL (9-16); Calcium 9.4 mg/dL (8.4-10.2); Carbon Dioxide 25 mmol/L (22-29); Chloride 105 mmol/L (96-108); Cholesterol 222 mg/dL (<200); Estimated Glomerular Filt Rate > 60; Glucose Fasting 263 mg/dL (60-99); HDL Cholesterol 49 mg/dL (>40); LDL Cholesterol Calculated 154 mg/dL (<100); Potassium 3.9 mmol/L (3.3-5.1); Sodium 138 mmol/L (135-145); Total Protein 7.7 g/dL (6.5-8.0); Triglycerides 96 mg/dL (<150)
[2024-11-22 11:56] LABS: Free T4 (Free Thyroxine) 0.99 ng/dL (0.71-1.85); Thyroid Stimulating Hormone 0.51 uIU/mL (0.32-4.0); Vitamin D 25-OH Total 28.4 ng/mL (>30)
[2024-11-22 12:07] LABS: Folate 8.9 ng/mL (> or = 4.0); Vitamin B12 371 pg/mL (200-900)
== END 2024-11-22 09:29 | disposition home or self-care (01) ==
LOC: HO.HOSX 09:28
PROVIDERS: Absent Provider Internal Medicine; PCP Internal Medicine; Visit Provider Physician Assistant
DX: E53.8 Deficiency of other specified B group vitamins (principal); E78.00 Pure hypercholesterolemia, unspecified; E03.9 Hypothyroidism, unspecified; E11.9 Type 2 diabetes mellitus without complications; E55.9 Vitamin D deficiency, unspecified; D64.9 Anemia, unspecified; M19.012 Primary osteoarthritis, left shoulder; M25.512 Pain in left shoulder; M25.612 Stiffness of left shoulder, not elsewhere classified
CPT/HCPCS: 36415; 73030; 80053; 80061; 82306; 82607; 82746; 83036; 84439; 84443; 85025; 99202

== ENCOUNTER 2024-11-22 11:11 | Outpatient (AMB) | payer OTHER, SELFPAY ==
[2024-11-22 11:20] VITALS: BMI 38.4
--- NOTE | 2024-11-22 11:20 | MHC.OFFVIS ---
Vital Signs 11/22/24 11:20 Height 5 ft 3 in Weight 217 lb BMI 38.4 Intake Visit Reasons: Newprob-left shoulder pain Intake Note: Aisha is an 84 year old right hand dominant female who presents today for an evaluation of left shoulder pain. Patient reports her pain has been present for a while however the past month her pain has gotten worse. Her pain radiates down her arm from her shoulder and has a tingling sensation. States her pain is worse at night. Limited ROM. No other tx. Denies injury. Application Operations Engineer Required: Yes Application Operations Engineer Services: Application Operations Engineer Offered & Declined Marketing Sales Consultant: Marketing Sales Consultant Present Accompanied by: Daughter Allergies No Known Allergies Allergy (Verified 11/22/24 11:27) HPI HPI Newprob-left shoulder pain: Details: 84-year-old female Presents to the office today for pain in the left shoulder. She has had pain for several years but over the last several months she has developed worsening symptoms. She has difficulty with overhead motion and reaching behind the back. She also has difficulty with finding a comfortable position with sleeping. No treatment to date. [facility] Medical History (Updated 11/22/24 @ 11:35 by Raul Neff PA-C) Nocturnal hypoxemia Acquired hypothyroidism Obesity (BMI 30-39.9) Diabetes mellitus Respiratory failure with hypercapnia SAVANNAH (obstructive sleep apnea) COPD (chronic obstructive pulmonary disease) Dementia with behavioral disturbance Asthma Otitis externa Elevated TSH Pain in left knee Morbid obesity with BMI of 45.0-49.9, adult Overactive bladder Umbilical hernia without obstruction and without gangrene Osteoarthritis Memory impairment Vitamin D deficiency Allergic rhinitis Osteoporosis GERD (gastroesophageal reflux disease) Pure hypercholesterolemia Essential hypertension Surgical History History of total left knee replacement History of total right knee replacement History of hysterectomy History of arthroplasty of left knee History of arthroplasty of right knee Family History Father Diabetes Cancer Mother Diabetes Social History Household Members: None Housing: Apartment Do you presently have visiting nurse or other home services: Yes ([employer] through [employer]) Unable to assess alcohol history related to: Unable to respond and Unknown Alcohol intake: never Comment: 1:1 sitter Patient Tobacco Use Status: Former Tobacco user Tobacco use type: Cigarette Years Smoked: 50 e-Cigarette/Vaping Use: Never Used Second Hand Smoke Exposure: No service: No Current occupational status: disabled Sexual orientation: Straight/Heterosexual Cognitive needs: Yes (cane) Hearing needs: Yes (hearing aide) Vision needs: Yes (glasses) Review of Systems Const All systems reviewed & are unremarkable except as noted in HPI and below Physical Exam Vital Signs: BMI result Body Mass Index 38.4 Const General: cooperative and no acute distress Orientation/consciousness: patient oriented x3 Resp Effort & Inspection: normal respiratory effort and able to speak in complete sentences Cardio Peripheral pulses: Peripheral pulses 2+ throughout Neuro General: patient oriented x3 Extrem Other: Left shoulder normal to inspection. Forward flexion to 45 degrees. Difficulty with performing external and internal rotation. Neurovascularly intact. Results Reviewed Results Reviewed: Xrays were obtained in the office today and personally reviewed by me of the left shoulder show ghj oa Assessment & Plan Assessment & Plan (1) Osteoarthritis of left shoulder: Code(s): M19.012 - Primary osteoarthritis, left shoulder Category: Medical Plan: We discussed options today which include physical therapy and cortisone injections. Her diabetes is not well controlled therefore will hold off on injections at this time. He prescription for Celebrex was sent to the pharmacy which she will take twice a day for 2 weeks. If symptoms persist or worsen she will contact our office to discuss left shoulder glenohumeral joint injection to be done at the hospital under fluoroscopy otherwise follow-up as needed. Orders: Orders XR shoulder LT min 2V Today M25.512 - Pain in left shoulder PT Evaluation and Treatment Today M19.012 - Primary osteoarthritis, left shoulder Medications: New celecoxib (Celebrex) 200 mg PO BID 30 days 60 caps 3RF Coding Level of Care Code New Pt Level 3 (95953) Complex EM visit Add On G2211 Diagnoses Osteoarthritis of left shoulder M19.012
== END 2024-11-22 11:41 | disposition home or self-care (01) ==
PROVIDERS: PCP Internal Medicine; Visit Provider Physician Assistant
DX: M19.012 Primary osteoarthritis, left shoulder (principal)
CPT/HCPCS: 99203; G2211

== ENCOUNTER 2024-11-24 10:51 | Outpatient (AMB) | payer OTHER, SELFPAY ==
--- NOTE | 2024-11-24 11:24 | MHC.PC.OV ---
Vital Signs 11/24/24 11:25 Height 5 ft 3 in BMI Reason not done Patient refused/unable BP 120/82 Blood Pressure Location Lt brachial Position Sitting Pulse 70 Pulse Source Pulse Oximeter Pulse Oximetry (%) 98 Oxygen Delivery Method Room Air Intake Visit Reasons: 3 month f/u Sharepoint Specialist Required: No Accompanied by: Self / Same As Patient Allergies No Known Allergies Allergy (Verified 11/24/24 11:57) Medication List - Last Reconciled 11/24/24 by Jaime Pugh MD acetazolamide 250 mg PO DAILY 90 days albuterol sulfate 90 mcg/actuation (Ventolin HFA) 2 puffs inhalation Q6H PRN [bed pads As directed] [BEDSIDE COMMODE As directed] blood sugar diagnostic As directed blood sugar diagnostic (Microbondsuch Ultra Test strips) USE TWICE DAILY DIRECTED blood-glucose meter twice a day celecoxib (Celebrex) 200 mg PO BID 30 days chair, wheel (Wheel chair) As directed cholecalciferol (vitamin D3) 1,250 mcg PO QWEEK coenzyme Q10 (Co Q-10) 100 mg PO DAILY 90 days donepezil 10 mg PO BEDTIME 30 days [ELECTRIC WHEELCHAIR As directed] [EPP MATTRESS As directed - FOR INDEFINITE USE] ergocalciferol (vitamin D2) 1,250 mcg PO QWEEK 90 days famotidine 20 mg PO BID flash glucose scanning reader (FreeStyle David 2 [place]) As directed flash glucose sensor (FreeStyle David 2 Sensor kit) As directed fluticasone furoate-vilanterol 100-25 mcg/dose (Breo Ellipta) 1 ea PO DAILY [FRONT-WHEELED WALKER (large) As directed] [HOSPITAL BED As directed] Humalog Mix 75-25(U-100)Insuln 100 unit/mL (75-25) (insulin lispro protamin-lispro) 60 units (0.6 mL) subcut BID 90 days NS hydrochlorothiazide 12.5 mg PO DAILY 90 days insulin syringe-needle U-100 (BD Insulin Syringe Ultra-Fine) USE 1 MISCELLANEOUS 2 TIMES A DAY insulin syringe-needle U-100 (BD Insulin Syringe Ultra-Fine) use twice a day Januvia (sitagliptin phosphate) 100 mg PO DAILY 90 days NS lamotrigine 25 mg PO DAILY@1200 30 days levothyroxine 25 mcg PO DAILY [LIGHT TRANSFER WHEELCHAIR As directed] loratadine 10 mg PO DAILY PRN 90 days metoprolol succinate ER 50 mg See Protocol PO DAILY 30 days mometasone 50 mcg/actuation 2 sprays intranasal DAILY multivitamin 1 tab PO DAILY 90 days omeprazole 40 mg (2 x 20 mg) PO DAILY polyethylene glycol 3350 17 grams PO DAILY [RAISED TOILET SEAT As directed] rosuvastatin 40 mg PO DAILY 90 days sennosides-docusate sodium 8.6-50 mg (Senna Plus) 1 tab PO BEDTIME trazodone 25 mg (1/2 x 50 mg) PO TID [WHEELCHAIR As directed] [Wheelchair assessment and repair As directed] Tobacco use date assessed: 11/24/24 Fall risk assessment: 1 Fall in past year Last assessed Fall Risk: 11/24/24 Dental Screening Dental Screen Date: 11/24/24 Did you have a dental visit in the last 12 months?: Yes Did you have a dental problem in the last 6 months where you did not have access to dental care?: No Was dental information given to patient?: Patient has dentist HPI 3 month f/u HPI Details Patient comes in today for her follow up visit - information is obtained mostly from her daughter as patient has some cognitive impairment due to her dementia Patient is still c/o increased joint pains - she has reportedly been advised by orthopedics that she is not a candidate for any type of orthopedic surgery at this time due to her age and comorbidities She was recently prescribed Celebrex by orthopedics for her joint pains but her daughter states that they have not yet started patient on this She will be starting PT for her left shoulder pain next Wednesday Her daughter adds that patient has been experiencing on and off nausea and occasional vomiting earlier this week - symptoms started around Wednesday and continued for the next couple of days, through Wednesday, but her daughter states that her nausea and vomiting appear to be gradually subsiding now Patient has also been reportedly complaining of sore throat that feels worse when she swallows - notes that this also seems to have started about 3 days ago She has not had any fever or chills; patient denies any headaches or dizziness She denies any chest pains, no increased shortness of breath No nausea/vomiting, no abdominal pain but her daughter has noticed that patient's umbilical hernia appears to have gotten much bigger lately and she is concerned that this will continue to get worse No change in bowel habits noted Patient also had follow-up labs done a couple of days ago and her daughter would also like for her to get her flu shot today [facility] Medical History (Updated 11/26/24 @ 19:49 by Jaime Pugh MD) Overactive bladder Vitamin D deficiency Allergic rhinitis Osteoporosis GERD (gastroesophageal reflux disease) Essential hypertension Pure hypercholesterolemia Nocturnal hypoxemia Acquired hypothyroidism Obesity (BMI 30-39.9) Diabetes mellitus Respiratory failure with hypercapnia SAVANNAH (obstructive sleep apnea) COPD (chronic obstructive pulmonary disease) Dementia with behavioral disturbance Asthma Otitis externa Elevated TSH Pain in left knee Morbid obesity with BMI of 45.0-49.9, adult Umbilical hernia without obstruction and without gangrene Osteoarthritis Memory impairment Surgical History History of total left knee replacement History of total right knee replacement History of hysterectomy History of arthroplasty of left knee History of arthroplasty of right knee Family History Father Diabetes Cancer Mother Diabetes Social History Household Members: None Housing: Apartment Do you presently have visiting nurse or other home services: Yes (DIVING JUDGE through [employer]) Unable to assess alcohol history related to: Unable to respond and Unknown Alcohol intake: never Comment: 1:1 sitter Patient Tobacco Use Status: Former Tobacco user Tobacco use type: Cigarette Years Smoked: 50 e-Cigarette/Vaping Use: Never Used Second Hand Smoke Exposure: No service: No Current occupational status: disabled Sexual orientation: Straight/Heterosexual Cognitive needs: Yes (cane) Hearing needs: Yes (hearing aide) Vision needs: Yes (glasses) Questionnaire PHQ-9 Over the last 2 weeks, how often have you been bothered by any of the following problems? 1. Little interest or pleasure in doing things: not at all 2. Feeling down, depressed, or hopeless: not at all 3. Trouble falling or staying asleep, or sleeping too much: not at all 4. Feeling tired or having little energy: not at all 5. Poor appetite or overeating: not at all 6. Feeling bad about yourself - or that you are a failure or have let yourself or your family down: not at all 7. Trouble concentrating on things, such as reading the newspaper or watching television: not at all 8. Moving or speaking so slowly that other people could have noticed. Or the opposite - being so fidgety or restless that you have been moving around a lot more than usual: not at all 9. Thoughts that you would be better off or of hurting yourself in some way: not at all Total score: 0 Depression Screening Interpretation: Negative Depression Screening Done: Yes 02029 - PHQ-9 Billing: Yes Source: Developed by Drs. Urban Chaudhary, Deanne Beatty, Sukh Lopez and colleagues, with an educational antonio from [employer] Thrive Questionnaire Date Thrive assessed: 11/24/24 I am a: Patient What is your living situation today?: I have a steady place to live Within the past 12 months, did the food you bought not last and you didn't have the money to get more?: Never true Within the past 12 months, did you worry whether your food would run out before you got money to buy more?: Never true Do you have trouble paying for medicines?: No Do you have trouble getting transportation to medical appointments?: No Do you have trouble paying your heating and electricity bill?: No Do you have trouble taking care of your child, family member or friend?: No Do you have trouble with day-to-day activities such as bathing, preparing meals, shopping, managing finances, etc.?: No Are you currently unemployed and looking for a job?: No Are you interested in more education?: No Please select the resources that you would like help with: None Currently or been in a relationship where the following occur: No concerns reported THRIVE Score: 0 AUDIT C Alcohol Use Questionnaire (AUDIT-C) 1. How often do you have a drink containing alcohol?: Monthly or less 2. How many drinks containing alcohol do you have on a typical day when you are drinking?: 1 or 2 3. How often do you have six or more drinks on one occasion?: Never Total Score: 1 Score Reviewed/Action Taken: Yes OSVALDO-7 AMB Questionnaire OSVALDO-7 Date OSVALDO - 7 assessed: 11/24/24 Feeling nervous, anxious, or on edge: 0 = Not at all Not being able to stop or control worryin = Not at all Worrying too much about different things: 0 = Not at all Trouble relaxin = Not at all Being so restless that it is hard to sit still: 0 = Not at all Becoming easily annoyed or irritable: 0 = Not at all Feeling afraid as if something awful might happen: 0 = Not at all Total OSVALDO-7 score (0-4 normal; 5-9 mild; 10-14 moderate; 15-21 severe): 0 Source: Developed by Drs. Urban Chaudhary, Deanne Beatty, Sukh Lopez and colleagues, with an educational antonio from [employer] Review of Systems Const Details: Patient continues to have some ongoing confusion and most of her information here is obtained from patient's daughter Unobtainable due to mental status (most of her information here is obtained from patient's daughter) Denies chills, Denies fatigue, Denies fever(s) and Denies headache(s) ENT Denies dysphagia, Denies dizziness, Denies otalgia, Denies headache(s), Denies neck pain, Denies odynophagia and Reports sore throat (ongoing for the past 3 days) Card Denies chest pain, Denies palpitations and Reports dyspnea on exertion (mild, chronic) Resp Denies chest congestion, Denies cough and Reports dyspnea on exertion (mild, chronic) GI Denies abdominal pain, Denies constipation, Denies dysphagia, Denies heartburn, Denies diarrhea, Denies nausea (improving), Denies odynophagia and Denies vomiting Denies difficulty voiding, Denies dysuria and Reports urinary incontinence Musc Denies back pain, Reports arthralgias (over the right shoulder and left knee, on and off) and Denies neck pain Skin/Breast Denies rash Neuro Reports behavioral changes (on and off), Reports confusion, Denies dizziness, Denies headache(s) and Reports memory loss Psych Reports anxiety, Reports behavioral changes (on and off), Reports confusion and Reports memory loss Endo Denies fatigue and Denies palpitations Physical exam (Primary Care) Vital Signs: Last Vital Signs Pulse 70 11/24/24 11:25 BP 120/82 11/24/24 11:25 Pulse Ox 98 11/24/24 11:25 Oxygen Delivery Method Room Air 11/24/24 11:25 Tobacco/Smoking Status: Tobacco use Status Tobacco use date assessed 11/24/24 11/24/24 11:26 Patient Tobacco Use Status Former Tobacco user 11/24/24 11:26 Tobacco use type Cigarette 11/24/24 11:26 e-Cigarette/Vaping Use Never Used 11/24/24 11:26 PHQ-9: PHQ-9 Score PHQ-9: Total score 0 11/24/24 12:22 Depression Screening Interpretation: Negative Thrive Assessment: Date of Thrive Assessment Date Thrive assessed 11/24/24 11/24/24 11:26 Currently or been in a relationship where the following occur: No concerns reported Const General: confusion Orientation/consciousness: confusion HENMT Ears: TM's normal bilaterally and EAC's normal Throat: Yes posterior oropharynx normal and Yes tonsils normal (no TP congestion) Neck Neck: Yes supple and No lymphadenopathy Thyroid: Thyroid normal Resp Auscultation: no crackles, no rales, no wheezes and diminished lung sounds (slightly) bilateral Cardio Rate: regular rate Rhythm: regular rhythm Heart sounds: no murmurs GI Palpation (GI): Soft to palpation and nontender Auscultation: normal bowel sounds General: Yes no CVA tenderness Back/Spine/Pelvis Back: no CVA tenderness Skin Rashes: no rashes Neuro General: confusion Extrem General: Yes no clubbing, cyanosis or edema Office Procedures Flu Questionnaire Does the patient have a severe egg allergy?: No Does the patient have severe life threatening allergies?: No Does the patient have a fever or illness today?: No Has the patient ever had Guillain-[place] Syndrome?: No Has the patient ever had any past reaction to a flu shot?: No Immunizations Fluarix Triv [id number] (PF) 45 mcg (15 mcg x 3)/0.5 mL IM syringe Performing Provider: Jaime Pugh MD [facility]forming [facility] [place] [facility] Administered by: Clara Lao CMA on 11/24/24 12:22 Dose Route Admin Location Dispensed Lot Number Expiration Date FORMERLY NAMED [facility] [employer] Teacher 0.5 mL IM Left Deltoid 0.5 mL [id number] 04/30/25 [id number] VIS Given Date VIS Provided VIS Publication Date 11/24/24 Single Vaccine 21 Eligibility Eligibility Date Funding Source Not VF Eligible 11/24/24 Private Results Reviewed Results Reviewed: Laboratory Tests 11/22/24 09:55 WBC 9.8 Hgb 13.2 Hct 41.8 Plt Count 264 Sodium 138 Potassium 3.9 Creatinine 0.88 Estimated GFR > 60 Fasting Glucose 263 H Hemoglobin A1c % 9.1 H Calcium 9.4 D AST 18 ALT 9 Triglycerides 96 Cholesterol 222 H LDL Cholesterol, Calc 154 H HDL Cholesterol 49 Vitamin B12 371 25-OH Vitamin D Total 28.4 L TSH 0.51 Free T4 0.99 Coding Level of Care Code Est Pt Level 4 (11827) Complex EM visit Add On G2211 Diagnoses Type 2 diabetes mellitus without complication, with long-term current use of insulin E11.9; Z79.4 Diabetes mellitus type: type 2 Diabetes mellitus manager long term care insulin use: with manager long term care use Diabetes mellitus complication status: without complication Dementia with behavioral disturbance F03.918 Pure hypercholesterolemia E78.00 Essential hypertension I10 Mild intermittent asthma without complication J45.20 Asthma severity: mild Asthma persistence: intermittent Asthma complication type: uncomplicated Nocturnal hypoxemia G47.34 SAVANNAH (obstructive sleep apnea) G47.33 Acquired hypothyroidism E03.9 Gastroesophageal reflux disease without esophagitis K21.9 Esophagitis presence: without esophagitis Age-related osteoporosis without current pathological fracture M81.0 Osteoporosis type: age-related Presence of current pathological fracture: without current pathological fracture Vitamin D deficiency E55.9 Allergic rhinitis, unspecified seasonality, unspecified trigger J30.9 Allergic rhinitis trigger: unspecified Allergic rhinitis seasonality: unspecified Primary osteoarthritis, unspecified site M19.91 Osteoarthritis location: unspecified site Osteoarthritis type: primary Overactive bladder N32.81 Umbilical hernia without obstruction and without gangrene K42.9 Obstruction and gangrene presence: without obstruction or gangrene Obesity (BMI 30-39.9) E66.9 Additional Codes PHQ-9 - 41143 - PHQ-9 Billing: Yes ([id number]) Assessment & Plan Assessment & Plan (1) Diabetes mellitus: Code(s): E11.9 - Type 2 diabetes mellitus without complications Category: Medical Qualifiers: Diabetes mellitus type: type 2 Diabetes mellitus manager long term care insulin use: with fci use Diabetes mellitus complication status: without complication Qualified Code(s): E11.9 - Type 2 diabetes mellitus without complications; Z79.4 - correction (current) use of insulin Plan: Her HgbA1c has increased further to 9.1% on her labs done a couple of days ago (was previously at 8.2% and 7.4% before that last year) - goal is < 7.0% Reinforced diabetic diet (to patient's daughter) She is supposed to be on Humalog Mix 75/25 60 units SQ BID and Januvia 100 mg QD but her daughter states that it is getting more and more difficult now to get patient to take her medications, including her insulin injections, as well as to comply with her diet, due to her declining cognition States that patient hardly eats anything most of the time nowadays and attempts to convince her to eat something is often met with angry outbursts from patient or she just completely ignores any instructions Will try referring patient to endocrinology for further recommendations regarding the management of her diabetes in this patient with declining cognition wherein compliance is the major impediment to helping get her diabetes adequately controlled (2) Dementia with behavioral disturbance: Code(s): F03.918 - Unspecified dementia, unspecified severity, with other behavioral disturbance Category: Medical Plan: She required chemical restraint with antipsychotics and admission briefly to the geriatric psychiatry unit during her hospital admission in the fall of 2022 She has since been weaned off her psychiatric meds and released back to the care of her daughter and family, who are willing to care for her 24/05 Continue Trazodone 25 mg TID and Donepezil 10 mg Q HS Follow up with psychiatry as scheduled Patient has also been referred to neurology for further evaluation and management and was seen by Dr. Umana back in May 2023 She was diagnosed then with Alzheimer's disease and started additionally on Memantine 5 mg BID but patient's daughter states that she would not even take the medication (3) Pure hypercholesterolemia: Code(s): E78.00 - Pure hypercholesterolemia, unspecified Category: Medical Plan: Results her labs done a couple of days ago reviewed and discussed with patient's daughter - have advised them that patient's cholesterol levels have also gone up significantly, with her LDL cholesterol now at 154 mg/dL Patient's daughter has again mentioned that patient has not been compliant with the medications and it is almost impossible nowadays to get her to take her oral medications and she is wondering if she can be switched to an injectable one, which the daughter can give to her without fear of patient refusing the medication She was on Rosuvastatin 40 mg QD but will now try to switch her over to Repatha 140 mg SQ every 2 weeks to try to help improve her cholesterol levels Will have patient recheck her labs and fasting lipids in 4 months for follow-up (4) Essential hypertension: Code(s): I10 - Essential (primary) hypertension Category: Medical Plan: Reinforced low sodium diet - goal is systolic BP of at least 130 to 140 mm or less Continue Metoprolol ER 50 mg QD and HCTZ 12.5 mg QD (5) Asthma: Code(s): J45.909 - Unspecified asthma, uncomplicated Category: Medical Qualifiers: Asthma severity: mild Asthma persistence: intermittent Asthma complication type: uncomplicated Qualified Code(s): J45.20 - Mild intermittent asthma, uncomplicated Plan: Appears controlled at present Continue Breo Ellipta 100-25 mcg 1 inhalation QD and Albuterol HFA 2 inhalations Q 6 hours PRN She also has Albuterol nebulizer solution that she uses with her updraft device when needed Follow up with pulmonary as scheduled (6) Nocturnal hypoxemia: Code(s): G47.34 - Idiopathic sleep related nonobstructive alveolar hypoventilation Category: Medical Plan: Patient had mild hypoxemia and hypercapnia when she was hospitalized a couple of years ago Oxygen saturation during 6 minutes of walking stayed normal; overnight oximetry done recently showed oxygen saturation staying below 88% for 23 minutes and she qualifies for oxygen use at night Her daughter is now trying to convince patient to agree to using oxygen at night Follow up with [facility] [place] (Dr. Singh) as scheduled (7) SAVANNAH (obstructive sleep apnea): Comment: PATIENT DOES HAVE HISTORY OF OBSTRUCTIVE SLEEP APNEA SINCE 2013 WHEN SHE HAD THE SLEEP STUDY. BUT SHE HAS NOT BEEN ABLE TO USE THE CPAP. CLAIMS THAT SHE IS SLEEPING OKAY. SHE HAS FEATURES OF CHRONIC HYPOVENTILATION SYNDROME, THAT HAS IMPROVED WITH THE USE OF ACETAZOLAMIDE 250 MG DAILY. HOWEVER SHE HAS TENDENCY TO MISS TAKING THIS MEDICATION. Code(s): G47.33 - Obstructive sleep apnea (adult) (pediatric) Category: Medical Plan: (+) SAVANNAH - sleep study done in 2013 Patient has not been able to use her CPAP device and claims that she sleeps okay without the device but patient also has dementia and whatever she says would not really be accurate or reliable She reportedly has features of chronic hypoventilation syndrome and was instead started on Acetazolamide, which has helped improve her symptoms Continue Acetazolamide 250 mg QD Follow up with pulmonary / sleep medicine as scheduled (8) Acquired hypothyroidism: Code(s): E03.9 - Hypothyroidism, unspecified Category: Medical Plan: Continue Levothyroxine 25 mcg QD Will recheck her TFTs in 4 months for follow up (9) GERD (gastroesophageal reflux disease): Code(s): K21.9 - Gastro-esophageal reflux disease without esophagitis Category: Medical Qualifiers: Esophagitis presence: without esophagitis Qualified Code(s): K21.9 - Gastro-esophageal reflux disease without esophagitis Plan: Dietary restrictions reinforced Continue Omeprazole 20 mg 2 capsules (40 mg) QD and Famotidine 20 mg BID (10) Osteoporosis: Comment: S/P Alendronate x 5 yrs Code(s): M81.0 - Age-related osteoporosis without current pathological fracture Category: Medical Qualifiers: Osteoporosis type: age-related Presence of current pathological fracture: without current pathological fracture Qualified Code(s): M81.0 - Age-related osteoporosis without current pathological fracture Plan: Repeat BMD done on 05/22/2022 revealed (+) osteoporosis based on the lowest T-score value of -2.6 in the lumbar spine applying World Health Organization criteria - BMD appears mostly unchanged from his previous BMD done on 09/20/2017 S/P Alendronate Rx x 5 yrs - Rx was stopped a couple of years ago Fall precautions reinforced Have reminded patient's daughter to make sure patient is on daily Vitamin D and calcium supplements daily Will continue to monitor her BMD every 2 to 3 years IF patient is able to cooperate with the procedure, which may get more and more difficult due to her declining cognition (11) Vitamin D deficiency: Code(s): E55.9 - Vitamin D deficiency, unspecified Category: Medical Plan: Continue Vitamin D 81810 units once a week (12) Allergic rhinitis: Code(s): J30.9 - Allergic rhinitis, unspecified Category: Medical Qualifiers: Allergic rhinitis trigger: unspecified Allergic rhinitis seasonality: unspecified Qualified Code(s): J30.9 - Allergic rhinitis, unspecified Plan: Continue Nasonex nasal spray and OTC Loratadine 10 mg QD PRN (13) Osteoarthritis: Comment: (+) Hx of bilateral knee arthroplasty - right knee in December 2010 and left knee on 07/18/2013 Code(s): M19.90 - Unspecified osteoarthritis, unspecified site Category: Medical Qualifiers: Osteoarthritis location: unspecified site Osteoarthritis type: primary Qualified Code(s): M19.91 - Primary osteoarthritis, unspecified site Plan: She was on Tramadol 50 mg TID PRN and Celecoxib 200 mg QD PRN in the past but she has been refusing to take most of her meds lately X-rays of the right shoulder done back in September 2019 showed (+) degenerative changes in the shoulder She was started back on Celebrex by orthopedics recently and she is scheduled to start physical therapy next week Follow up with orthopedics as scheduled (14) Overactive bladder: Code(s): N32.81 - Overactive bladder Category: Medical Plan: Follow up with urology as scheduled although have discussed with patient's daughter that they may not be able to do much here due to patient's urinary incontinence associated with her declining cognition (15) Umbilical hernia: Code(s): K42.9 - Umbilical hernia without obstruction or gangrene Category: Medical Qualifiers: Obstruction and gangrene presence: without obstruction or gangrene Qualified Code(s): K42.9 - Umbilical hernia without obstruction or gangrene Plan: Per request, will refer patient to surgery for further evaluation and management of umbilical hernia, which patient's daughter feels has been getting bigger lately (16) Obesity (BMI 30-39.9): Code(s): E66.9 - Obesity, unspecified Category: Medical Plan: Reinforced diet; exercise and weight loss are unrealistic at this time given patient's significant cognitive decline Plan As requested, flu vaccine given to the patient today Follow-up in 4 months Orders: Orders Microalbumin, Random (w Creat) 4 Months E11.9 - Type 2 diabetes mellitus without complications Thyroid Stimulating Hormone 4 Months E03.9 - Hypothyroidism, unspecified UA CC w/rflx Micro + Cult 4 Months R30.0 - Dysuria Influenza [id number] Immunization 11/24/24 Z23 - Encounter for immunization Hemoglobin A1c 4 Months E11.9 - Type 2 diabetes mellitus without complications Lipid Panel 4 Months E78.00 - Pure hypercholesterolemia, unspecified Complete Blood Count Auto Diff 4 Months D64.9 - Anemia, unspecified Comprehensive [place]. Panel Fast 4 Months E78.00 - Pure hypercholesterolemia, unspecified Free T4 (Free Thyroxine) 4 Months E03.9 - Hypothyroidism, unspecified Vitamin D 25-OH Total 4 Months E55.9 - Vitamin D deficiency, unspecified Vitamin B12 and Folate 4 Months E53.8 - Deficiency of other specified B group vitamins Referrals General Surgery Referral K42.9 - Umbilical hernia without obstruction or gangrene Endocrinology Referral E11.9 - Type 2 diabetes mellitus without complications, Z79.4 - roasterman (current) use of insulin Medications: New evolocumab (Repathdonny Nance) LDL cholesterol at 154 mg/dl despite oral meds 140 mg subcut Q2W 4 weeks 2 mL 5RF E11.9 - Type 2 diabetes mellitus without complications, E78.00 - Pure hypercholesterolemia, unspecified, Z79.4 - correction (current) use of insulin
[2024-11-24 11:25] VITALS: BP 120/82; PULSE 70; O2SAT 98
== END 2024-11-24 12:34 | disposition home or self-care (01) ==
PROVIDERS: PCP Internal Medicine; Visit Provider Internal Medicine
DX: E11.9 Type 2 diabetes mellitus without complications (principal); Z79.4 Long term (current) use of insulin; F03.918 Unspecified dementia, unspecified severity, with other behavioral disturbance; E78.00 Pure hypercholesterolemia, unspecified; I10 Essential (primary) hypertension; J45.20 Mild intermittent asthma, uncomplicated; G47.34 Idiopathic sleep related nonobstructive alveolar hypoventilation; G47.33 Obstructive sleep apnea (adult) (pediatric); E03.9 Hypothyroidism, unspecified; K21.9 Gastro-esophageal reflux disease without esophagitis; M81.0 Age-related osteoporosis without current pathological fracture; E55.9 Vitamin D deficiency, unspecified

== ENCOUNTER 2024-11-24 11:30 | Outpatient (REF) | payer OTHER, SELFPAY ==
[2024-11-24 14:31] LABS: Appearance Urine Turbid; Color Urine Dark Yellow; Glucose Urine UA Negative (Negative); Leukocyte Esterase Urine Negative (Negative); Nitrite Urine Negative (Negative); PH 5.5 (5.0-9.0); Urine Blood Negative (Negative); Urine Ketones Negative (Negative); Urine Protein Trace mg/dL (Neg-Trace)
[2024-11-24 15:48] LABS: Creatinine Urine 192.83 mg/dL; Microalbum/Creatinine Ratio Ur 9.3 ug/mg cr (<30)
== END 2024-11-24 11:31 | disposition home or self-care (01) ==
LOC: HO.LNP 11:30
PROVIDERS: Visit Provider Internal Medicine
DX: E11.9 Type 2 diabetes mellitus without complications (principal); F03.918 Unspecified dementia, unspecified severity, with other behavioral disturbance; Z23 Encounter for immunization; E78.00 Pure hypercholesterolemia, unspecified; I10 Essential (primary) hypertension; J45.20 Mild intermittent asthma, uncomplicated; G47.34 Idiopathic sleep related nonobstructive alveolar hypoventilation; G47.33 Obstructive sleep apnea (adult) (pediatric); E03.9 Hypothyroidism, unspecified; K21.9 Gastro-esophageal reflux disease without esophagitis; M81.0 Age-related osteoporosis without current pathological fracture; E55.9 Vitamin D deficiency, unspecified; J30.9 Allergic rhinitis, unspecified; M19.91 Primary osteoarthritis, unspecified site; N32.81 Overactive bladder; K42.9 Umbilical hernia without obstruction or gangrene; E66.9 Obesity, unspecified; R30.0 Dysuria; Z79.4 Long term (current) use of insulin; Z79.899 Other long term (current) drug therapy
CPT/HCPCS: 81003; 82043; 82570; 90471; 90656; 96127; 99212

== ENCOUNTER 2025-01-09 14:11 | Outpatient (AMB) | payer OTHER, SELFPAY ==
--- NOTE | 2025-01-09 14:16 | A.OFFVIS_ITS ---
Vital Signs 01/09/25 14:21 Height 5 ft 3 in Weight 217 lb 6.012 oz BMI 38.5 BP 128/74 Blood Pressure Location Lt brachial Position Sitting Pulse 82 Pulse Source Pulse Oximeter Pulse Oximetry (%) 94 Oxygen Delivery Method Room Air Intake Visit Reasons: Type 2 diabetes mellitus without complications Intake Note: New patient internally referred by PCP for T2DM. Last Diabetic Eye exam: September 2024, seen yearly. Last Podiatry Visit: Does not see a Shaker Screen Operator Random Glucose: 87 mg/dl HgA1C: 9.1% 11/22/2024 Undercover Operator Required: Yes Undercover Operator Language: Salvage Supervisor Services: Undercover Operator Offered & Declined Accompanied by: Daughter Allergies No Known Allergies Allergy (Verified 01/09/25 14:23) Medication List - Last Reconciled 01/09/25 by CEM Bautista acetazolamide 250 mg PO DAILY 90 days albuterol sulfate 90 mcg/actuation (Ventolin HFA) 2 puffs inhalation Q6H PRN [bed pads As directed] [BEDSIDE COMMODE As directed] blood sugar diagnostic As directed blood sugar diagnostic (DimmiTouch Ultra Test strips) USE TWICE DAILY DIRECTED blood-glucose meter twice a day blood-glucose meter,continuous (FreeStyle David 3 Temple) Use daily to monitor blood glucose levels continuously. blood-glucose sensor (FreeStyle David 3 Sensor device) apply new sensor every 14 days celecoxib (Celebrex) 200 mg PO BID 30 days chair, wheel (Wheel chair) As directed cholecalciferol (vitamin D3) 1,250 mcg PO QWEEK coenzyme Q10 (Co Q-10) 100 mg PO DAILY 90 days dextrose (TRUEplus Glucose) 15 grams (32 mL) PO Q15M PRN donepezil 10 mg PO BEDTIME 30 days [ELECTRIC WHEELCHAIR As directed] [EPP MATTRESS As directed - FOR INDEFINITE USE] ergocalciferol (vitamin D2) 1,250 mcg PO QWEEK 90 days evolocumab (Repatha SureClick) 140 mg subcut Q2W 4 weeks famotidine 20 mg PO BID flash glucose scanning reader (FreeStyle David 2 Temple) As directed flash glucose sensor (FreeStyle David 2 Sensor kit) As directed fluticasone furoate-vilanterol 100-25 mcg/dose (Breo Ellipta) 1 ea PO DAILY [FRONT-WHEELED WALKER (large) As directed] [HOSPITAL BED As directed] hydrochlorothiazide 12.5 mg PO DAILY 90 days insulin lispro protamin-lispro 100 unit/mL (75-25) (Humalog Mix 75-25(U-100)Insuln) 50 units subcut BID insulin syringe-needle U-100 (BD Insulin Syringe Ultra-Fine) USE 1 MISCELLANEOUS 2 TIMES A DAY insulin syringe-needle U-100 (BD Insulin Syringe Ultra-Fine) use twice a day lamotrigine 25 mg PO DAILY@1200 30 days levothyroxine 25 mcg PO DAILY [LIGHT TRANSFER WHEELCHAIR As directed] loratadine 10 mg PO DAILY PRN 90 days metoprolol succinate ER 50 mg See Protocol PO DAILY 30 days mometasone 50 mcg/actuation 2 sprays intranasal DAILY multivitamin 1 tab PO DAILY 90 days omeprazole 40 mg (2 x 20 mg) PO DAILY polyethylene glycol 3350 17 grams PO DAILY [RAISED TOILET SEAT As directed] rosuvastatin 40 mg PO DAILY 90 days sennosides-docusate sodium 8.6-50 mg (Senna Plus) 1 tab PO BEDTIME tizanidine 4 mg PO BEDTIME PRN 90 days trazodone 25 mg (1/2 x 50 mg) PO TID [WHEELCHAIR As directed] [Wheelchair assessment and repair As directed] HPI Comments Details: This is an 84-year-old female with a past medical history of overactive bladder, vitamin-D deficiency, GERD, hypertension, hyperlipidemia, COPD and nocturnal hypoxemia, type 2 diabetes, hypothyroidism, SAVANNAH, dementia, asthma and obesity presenting for a diabetic management consult. She is with her daughter even who is the caregiver. Diagnosed 20-30 years ago. Her daughter used to have diabetes prior to weight loss surgery. Denies family history of type 1 diabetes. She has live with her daughter the past 2 years. Either her daughter, her grandson or her WINDING OPERATOR is with her during the day and night. She has a David 2, but they just put on a new sensor so there is very little data. Glucose is 87 currently. Hemoglobin A1c 9.1% 11/22/2024. Daughter reports her A1c increased over the past year because it became difficult to administer her medications. She is not taking Januvia for the past month. She was not taking Humalog mix. During the past week she has been compliant with Humalog mix 50 units twice daily. Current medication regimen: Januvia 100 mg, Humalog mix 75/25 50 units twice a day Past medications: She was on metformin, and they are uncertain why it was discontinued in the past. Daughter thinks she may have been on a GLP 1 injection at 1 point. Compliance issues: Dementia complicates medication compliance and diet compliance. Diet: Breakfast-bread with butter or oatmeal, coffee with zero sugar sweetener, eggs, crackers Lunch-rice, beef stew Dinner-small portion of rice, bread, protein, sometimes vegetables or fruit Snacks/desserts: no juice, soda or alcohol, sometimes candy or chips Hypoglycemia symptoms: none Hyperglycemia symptoms: headache, dizzy, blurry vision, polydipsia Eye exam: yearly with [facility]. No retinopathy or macular edema. She has cataracts. Microvascular complications: neuropathy Macrovascular complications: ?mild KS many years ago - daughter said she had a cardiac catheterization but no stent or CABG. Hypertension: treated with hydrochlorothiazide Hyperlipidemia: treated with Repatha, rosuvastatin ROS: Constitutional: No fevers or chills or unexplained weight loss. Eyes: No vision changes, blurry vision, double vision Respiratory: No shortness of breath Cardiovascular: No chest pain Gastrointestinal: No anorexia, nausea, vomiting or diarrhea. No abdominal pain Neurologic: No headache, dizziness, syncope, +tingling and numbness in her feet Skin: No rash or itching. Physical exam: Constitutional: Alert, in no distress. Head: Normocephalic. Eyes: Pupils are equal, round and reactive to light. Extraocular muscles intact. Neck: Supple, Full range of motion. No lymphadenopathy. No palpable thyroid masses. Respiratory: Clear to auscultation. Cardiovascular: S1 S2 regular. No murmurs Right foot: Warm and well perfused. No clubbing, cyanosis or edema. Palpable DP pulse. Decreased vibratory sensation. Significantly decreased sensation to monofilament in the toes and foot. Left foot: Warm and well perfused. No clubbing, cyanosis or edema. Palpable DP pulse. Decreased vibratory sensation. Absent sensation to monofilament in the toes and decreased in the foot. [facility] Medical History (Updated 01/09/25 @ 15:19 by CEM Bautista) Uncontrolled type 2 diabetes mellitus with hyperglycemia Overactive bladder Vitamin D deficiency Allergic rhinitis Osteoporosis GERD (gastroesophageal reflux disease) Essential hypertension Pure hypercholesterolemia Nocturnal hypoxemia Acquired hypothyroidism Obesity (BMI 30-39.9) Diabetes mellitus Respiratory failure with hypercapnia SAVANNAH (obstructive sleep apnea) COPD (chronic obstructive pulmonary disease) Dementia with behavioral disturbance Asthma Otitis externa Elevated TSH Pain in left knee Morbid obesity with BMI of 45.0-49.9, adult Umbilical hernia without obstruction and without gangrene Osteoarthritis Memory impairment Surgical History History of total left knee replacement History of total right knee replacement History of hysterectomy History of arthroplasty of left knee History of arthroplasty of right knee Family History Father Diabetes Cancer Mother Diabetes Social History Household Members: None Housing: Apartment Do you presently have visiting nurse or other home services: Yes (WINDING OPERATOR through [employer]) Unable to assess alcohol history related to: Unable to respond and Unknown Alcohol intake: never Comment: 1:1 sitter Patient Tobacco Use Status: Former Tobacco user Tobacco use type: Cigarette Years Smoked: 50 e-Cigarette/Vaping Use: Never Used Second Hand Smoke Exposure: No service: No Current occupational status: disabled Sexual orientation: Straight/Heterosexual Cognitive needs: Yes (cane) Hearing needs: Yes (hearing aide) Vision needs: Yes (glasses) Physical Exam Vital Signs: Last Vital Signs Pulse 82 01/09/25 14:21 BP 128/74 01/09/25 14:21 Pulse Ox 94 01/09/25 14:21 Oxygen Delivery Method Room Air 01/09/25 14:21 BMI result Body Mass Index 38.5 Results Reviewed Results Reviewed: Laboratory Last Values Glucose (Clinic) 87 mg/dL (60-115) 01/09/25 14:34 Laboratory Tests 11/22/24 11/24/24 09:55 11:30 Creatinine 0.88 Estimated GFR > 60 AST 18 ALT 9 Triglycerides 96 Cholesterol 222 H LDL Cholesterol, Calc 154 H HDL Cholesterol 49 Vitamin B12 371 TSH 0.51 Urine Creatinine 192.83 Urine Microalbumin 18.0 Microalb/Creat Ratio 9.3 Assessment & Plan Assessment & Plan (1) Uncontrolled type 2 diabetes mellitus with hyperglycemia: Code(s): E11.65 - Type 2 diabetes mellitus with hyperglycemia Category: Medical Plan In summary this is an 84-year-old female with uncontrolled type 2 diabetes complicated by cognitive impairment. Her daughter is her director of primary care, and she has a WINDING OPERATOR. Her POC was 87 today. Very limited data to review since they just applied a new sensor. David 2 is being discontinued. I explained this to them. We will hold off on adjusting her medications aside from instruction to remain off Januvia. Her daughter says that she has not taken it for the past month because she refuses a lot of her pills due to dementia/agitation. Injections are much easier for her to administer. She has been compliant with her insulin so she will remain on 50 units of Humalog mix twice daily for now. We will re-evaluate her medication regimen in 2 weeks. I asked that they scan her David 2 in the morning and before and after lunch and dinner, and I am going to send a David 3 sensor and reader. David 3 is more accurate compared to David 2, and given patient's dementia and inability to check blood sugars independently it is medically necessary. Continue annual eye exams. Consider referral to inclusion paraeducator and dietitian. Again compliance is limited by dementia. If you experience low blood sugar, treat this by eating a chewable fruit candy like skittles or jelly beans (about 8 pieces), 4 ounces (1/2 cup) of fruit juice (not diet), 1 tablespoon of honey or 4 glucose tablets or 1 packet of glucose gel. If your blood sugar is under 55, take double the amount of one of the above. Recheck your blood sugar in 15 minutes. Follow up in 2 weeks for type 2 diabetes. Medications: New blood-glucose meter,continuous (FreeStyle David 3 Temple) Use daily to monitor blood glucose levels continuously. 1 ea 0RF CEM Bautista E11.65 - Type 2 diabetes mellitus with hyperglycemia dextrose (TRUEplus Glucose) until symptoms of low blood sugar are controlled 15 grams (32 mL) PO Q15M PRN 128 mL 3RF hypoglycemia CEM Bautista blood-glucose sensor (FreeStyle David 3 Sensor device) apply new sensor every 14 days 2 ea 11RF CEM Bautista E11.65 - Type 2 diabetes mellitus with hyperglycemia Changed From Humalog Mix 75-25(U-100)Insuln 100 unit/mL (75-25) (insulin lispro pr otamin-lispro) 60 units (0.6 mL) subcut BID 90 days 200 mL 1RF NS E11.9 - Type 2 diabetes mellitus without complications, Z79.4 - alf (current) use of insulin To insulin lispro protamin-lispro 100 unit/mL (75-25) (Humalog Mix 75-25(U-100)Insuln) 50 units subcut BID E11.9 - Type 2 diabetes mellitus without complications, Z79.4 - alf (current) use of insulin Master Ford MD Patient Instructions: If you experience low blood sugar, treat this by eating a chewable fruit candy like skittles or jelly beans (about 8 pieces), 4 ounces (1/2 cup) of fruit juice (not diet), 1 tablespoon of honey or 4 glucose tablets. If your blood sugar is under 55, take double the amount of one of the above. Recheck your blood sugar in 15 minutes. Continue Humalog mix 50 units twice daily. Do not take Januvia. I send the david 3 reader and sensor to the pharmacy. Please use david 2 for now and scan in the morning, before and after lunch and dinner. Si tiene un nivel bajo de az?car en claudia, tr?telo comiendo un caramelo masticable de fruta william Skittles o Jelly Beans (aproximadamente 8 piezas), 4 onzas (1/2 taza) de jugo de fruta (no diet?lavonne), 1 cucharada de miel o 4 tabletas de glucosa. Si chau nivel de az?car en claudia es inferior a 55, tome el doble de la cantidad de avinash de los anteriores. Vuelva a controlar chau nivel de az?car en claudia en 15 minutos. Contin?e con Humalog Mix 50 unidades dos veces al d?a. No tome Januvia. Env?o el lector y el sensor David 3 a la farmacia. Utilice David 2 por ahora y escanee por la ma?taye, antes y despu?s del almuerzo y la shi. Coding Level of Care Code New Pt Level 5 (46654) Complex EM visit Add On G2211 Diagnoses Uncontrolled type 2 diabetes mellitus with hyperglycemia E11.65 Time Spent (min) 70 Comment Chart review, direct patient care, documentation
[2025-01-09 14:21] VITALS: BP 128/74; PULSE 82; O2SAT 94; BMI 38.5
[2025-01-09 14:38] LABS: Glucose, Whole Blood 87 mg/dL (60-115)
== END 2025-01-09 15:26 | disposition home or self-care (01) ==
LOC: HO.ENCR 14:12
PROVIDERS: PCP Internal Medicine; Visit Provider Physician Assistant Medical
DX: E11.65 Type 2 diabetes mellitus with hyperglycemia (principal)

== ENCOUNTER → 2025-01-09 14:11 | Outpatient (BNVA) | payer OTHER, SELFPAY | PROVIDERS: PCP Internal Medicine; Visit Provider Physician Assistant Medical | DX: E11.65 Type 2 diabetes mellitus with hyperglycemia (principal); Z79.4 Long term (current) use of insulin | CPT/HCPCS: 82947; 99202 ==

== ENCOUNTER 2025-01-16 13:00 | Outpatient (AMB) | payer OTHER, SELFPAY ==
[2025-01-16 13:01] VITALS: BP 173/77
--- NOTE | 2025-01-16 13:01 | A.OFFVIS_ITS ---
Vital Signs 01/16/25 13:01 Height 5 ft 3 in BP 173/77 H Blood Pressure Location Rt brachial Position Sitting Intake Visit Reasons: umbilical hernia, increase in size Intake Note: New patient in office today for umbilical hernia. CC: Patient with umbilical hernia for 10 years. Per her daughter last the patient was com.plaining about pain from her navel Voyage Management System Operator Required: Yes Voyage Management System Operator Language: Belarusian Accompanied by: Daughter Allergies No Known Allergies Allergy (Verified 01/16/25 13:03) HPI Comments Details: Patient presents with her daughter. She has a known history of umbilical hernia for at least the last 10 years time this has increased in size over the last several weeks and become more symptomatic. The daughter also noticed a fullness in the lower abdomen with in his concerned that this may be end of the hernia. Patient has some early onset dementia . She otherwise tolerating a diet. She has regular bowel habits. No other GI issues or complaints. Chart was reviewed and patient evaluated [facility] Medical History Uncontrolled type 2 diabetes mellitus with hyperglycemia Overactive bladder Vitamin D deficiency Allergic rhinitis Osteoporosis GERD (gastroesophageal reflux disease) Essential hypertension Pure hypercholesterolemia Nocturnal hypoxemia Acquired hypothyroidism Obesity (BMI 30-39.9) Diabetes mellitus Respiratory failure with hypercapnia SAVANNAH (obstructive sleep apnea) COPD (chronic obstructive pulmonary disease) Dementia with behavioral disturbance Asthma Otitis externa Elevated TSH Pain in left knee Morbid obesity with BMI of 45.0-49.9, adult Umbilical hernia without obstruction and without gangrene Osteoarthritis Memory impairment Surgical History H/O colonoscopy History of total left knee replacement History of total right knee replacement History of hysterectomy History of arthroplasty of left knee History of arthroplasty of right knee Family History Father Diabetes Cancer Mother Diabetes Social History Household Members: None Housing: Apartment Do you presently have visiting nurse or other home services: Yes (EXECUTIVE MARKETING ASSISTANT through [employer]) Unable to assess alcohol history related to: Unable to respond and Unknown Alcohol intake: never Comment: 1:1 sitter Patient Tobacco Use Status: Former Tobacco user Tobacco use type: Cigarette Years Smoked: 50 e-Cigarette/Vaping Use: Never Used Second Hand Smoke Exposure: No service: No Current occupational status: disabled Sexual orientation: Straight/Heterosexual Cognitive needs: Yes (cane) Hearing needs: Yes (hearing aide) Vision needs: Yes (glasses) Physical Exam Vital Signs: Last Vital Signs BP 173/77 H 01/16/25 13:01 GI Other: Very corpulent abdomen. Large pannus. Patient was a roughly 3 cm incarcerated umbilical hernia. He has a lower midline scar. There is a fullness in the left lower quadrant in the soft tissue and because of the marked pannus, is unclear whether this is just some scar tissue from the prior surgery or indeed in incisional hernia from the patient's prior lower midline procedure. Assessment & Plan Assessment & Plan (1) Umbilical hernia: Code(s): K42.9 - Umbilical hernia without obstruction or gangrene Category: Surgical (2) Abdominal wall mass of left lower quadrant: Code(s): R19.04 - Left lower quadrant abdominal swelling, mass and lump Category: Surgical Plan Current plan is to arrange for a CT scan of the abdomen and pelvis and indirect further therapy the patient was results. This was reviewed with the patient and her daughter. They understand. All questions answered. They will see me post scan or p.r.n.. Coding Level of Care Code New Pt Level 4 (45725) Diagnoses Umbilical hernia K42.9 Abdominal wall mass of left lower quadrant R19.04
== END 2025-01-16 13:37 | disposition home or self-care (01) ==
LOC: HO.HGS 13:01
PROVIDERS: PCP Internal Medicine; Visit Provider Surgery
DX: K42.9 Umbilical hernia without obstruction or gangrene (principal); R19.04 Left lower quadrant abdominal swelling, mass and lump
CPT/HCPCS: 99204

== ENCOUNTER → 2025-01-16 13:00 | Outpatient (BNVA) | payer OTHER, SELFPAY | PROVIDERS: PCP Internal Medicine; Visit Provider Surgery | DX: K42.9 Umbilical hernia without obstruction or gangrene (principal); R19.04 Left lower quadrant abdominal swelling, mass and lump | CPT/HCPCS: 99202 ==

== ENCOUNTER 2025-03-14 08:43 | Outpatient (REF) | payer OTHER, SELFPAY ==
[2025-03-14 09:08] LABS: MANUAL DIFF FLAG NO
[2025-03-14 10:26] LABS: Basophils Percent Auto 0.5 % (0-2); Eosinophils Absolute Auto 0.1 X10*3/uL (0.0-0.4); Eosinophils Percent Auto 1.7 % (0-4); Hemoglobin 13.5 g/dl (12.0-16.0); Imm Gran Abs Auto 0.02 X10*3/uL (0.00-0.03); Imm Gran Pct Auto 0.3 % (0.0-0.4); Lymphocytes Absolute Auto 2.9 X10*3/uL (1.2-4.9); Mean Corpuscular HGB Conc 31.4 g/dl (31.0-35.0); Mean Corpuscular Hemoglobin 26.6 pg (27.0-33.0); Mean Corpuscular Volume 84.8 fL (80.0-98.0); Mean Platelet Volume 10.4 fL (9.4-12.3); Monocytes Absolute Auto 0.3 X10*3/uL (0.1-1.2); Monocytes Percent Auto 4.5 % (2-11); Neutrophils Absolute Auto 3.1 x10*3/uL (2.0-8.3); Platelet Count 231 X10*3/uL (160-400); Red Blood Count 5.07 X10*6/uL (4.20-5.50); Red Cell Distribution Width 14.7 % (11.0-16.0); White Blood Count 6.5 X10*3/uL (4.8-10.8)
[2025-03-14 11:01] LABS: Appearance Urine Clear; Color Urine Yellow; Glucose Urine UA Negative (Negative); Leukocyte Esterase Urine Trace (Negative); Nitrite Urine Negative (Negative); PH 5.5 (5.0-9.0); Specific Gravity - Urine 1.015 (1.005-1.025); UMIC TRIGGER UACC YES; Urine Blood Negative (Negative); Urine Ketones Negative (Negative); Urine Protein Negative (Neg-Trace)
[2025-03-14 11:15] LABS: Bacteria Urine None Seen (None Seen); Hyaline Casts Urine 0-2 /LPF (0-2); RBC Urine 0-2 /HPF (0-2); WBC Urine 0-5 /HPF (0-5)
[2025-03-14 11:15] LABS: Estimated Average Glucose 192 mg/dL; Hemoglobin A1C 239.2166 umol/L; Hemoglobin A1c % 8.3 % (<6.0); Total Hemoglobin (HGBA1C) 3562.4094 umol/L
[2025-03-14 11:18] LABS: Folate 14.4 ng/mL (> or = 4.0); Vitamin B12 317 pg/mL (200-900)
[2025-03-14 11:28] LABS: Creatinine Urine 87.43 mg/dL; Microalbum/Creatinine Ratio Ur 10.2 ug/mg cr (<30)
== END 2025-03-14 08:44 | disposition home or self-care (01) ==
LOC: HO.LAB 08:43
PROVIDERS: Absent Provider Surgery; PCP Internal Medicine; Visit Provider Internal Medicine
DX: D64.9 Anemia, unspecified (principal); E11.9 Type 2 diabetes mellitus without complications; E53.8 Deficiency of other specified B group vitamins
CPT/HCPCS: 36415; 80053; 80061; 81001; 81003; 82043; 82306; 82570; 82607; 82746; 83036; 84439; 84443; 85025

== ENCOUNTER 2025-03-21 13:13 | Outpatient (REF) | payer OTHER, SELFPAY ==
[2025-03-21] MEDS: iohexoL 350 MG/ML 100 ML INFUS..BTL IV (16:16)
[2025-03-22 15:20] LABS: Creatinine POC 0.6 mg/dL (0.5-1.4); GFR POC > 60
== END 2025-03-21 13:14 | disposition home or self-care (01) ==
LOC: HO.CT 13:13
PROVIDERS: PCP Internal Medicine; Visit Provider Surgery
DX: R19.04 Left lower quadrant abdominal swelling, mass and lump (principal); K42.9 Umbilical hernia without obstruction or gangrene
CPT/HCPCS: 74177; 82565; Q9967

== ENCOUNTER → 2025-03-21 13:15 | Outpatient (BNV) | payer OTHER, SELFPAY | PROVIDERS: PCP Internal Medicine; Visit Provider Radiology Diagnostic Radiology | DX: R19.04 Left lower quadrant abdominal swelling, mass and lump (principal) | CPT/HCPCS: 74177 ==

== ENCOUNTER 2025-03-29 09:01 | Outpatient (AMB) | payer OTHER, SELFPAY ==
--- NOTE | 2025-03-29 09:44 | A.OFFPC_ITS ---
Vital Signs 03/29/25 09:45 Height 5 ft 3 in Weight 219 lb BMI 38.8 BP 124/78 Blood Pressure Location Lt brachial Position Sitting Pulse 69 Pulse Source Pulse Oximeter Pulse Oximetry (%) 95 Oxygen Delivery Method Room Air Intake Visit Reasons: 4 Month F/U Occupational Hygienist Required: No Accompanied by: Self / Same As Patient Allergies No Known Allergies Allergy (Verified 03/29/25 10:09) Medication List - Last Reconciled 03/29/25 by Jaime Pugh MD acetazolamide 250 mg PO DAILY 90 days albuterol sulfate 90 mcg/actuation (Ventolin HFA) 2 puffs inhalation Q6H PRN barium sulfate 2%(w/v) (Readi-Cat 2) 900 mL PO ONCE [bed pads As directed] [BEDSIDE COMMODE As directed] blood sugar diagnostic As directed blood sugar diagnostic (ProfindTouch Ultra Test strips) USE TWICE DAILY DIRECTED blood-glucose meter twice a day blood-glucose sensor (FreeStyle David 3 Sensor device) apply new sensor every 14 days blood-glucose,forest landscape 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 celecoxib (Celebrex) 200 mg PO BID 30 days chair, wheel (Wheel chair) As directed cholecalciferol (vitamin D3) 1,250 mcg PO QWEEK coenzyme Q10 (Co Q-10) 100 mg PO DAILY 90 days dextrose (TRUEplus Glucose) 15 grams (32 mL) PO Q15M PRN donepezil 10 mg PO BEDTIME 30 days [ELECTRIC WHEELCHAIR As directed] [EPP MATTRESS As directed - FOR INDEFINITE USE] ergocalciferol (vitamin D2) 1,250 mcg PO QWEEK 90 days evolocumab (Repatha SureClick) 140 mg subcut Q2W 4 weeks famotidine 20 mg PO BID flash glucose scanning reader ([employer] David 2 [place]) As directed flash glucose sensor (FreeStyle David 2 Sensor kit) As directed fluticasone furoate-vilanterol 100-25 mcg/dose (Breo Ellipta) 1 ea PO DAILY [FRONT-WHEELED WALKER (large) As directed] [HOSPITAL BED As directed] hydrochlorothiazide 12.5 mg PO DAILY 90 days insulin lispro protamin-lispro 100 unit/mL (75-25) (Humalog Mix 75-25(U-100)Insuln) 50 units subcut BID insulin syringe-needle U-100 (BD Insulin Syringe Ultra-Fine) USE 1 MISCELLANEOUS 2 TIMES A DAY insulin syringe-needle U-100 (BD Insulin Syringe Ultra-Fine) use twice a day lamotrigine 25 mg PO DAILY@1200 30 days levothyroxine 25 mcg PO DAILY lidocaine 5% 1 patch topical DAILY [LIGHT TRANSFER WHEELCHAIR As directed] loratadine 10 mg PO DAILY PRN 90 days loratadine 10 mg PO DAILY memantine 5 mg PO BID metoprolol succinate ER 50 mg See Protocol PO DAILY 30 days mometasone 50 mcg/actuation 2 sprays intranasal DAILY multivitamin with folic acid 400 mcg (Daily-Ike (with folic acid)) 1 tab PO DAILY omeprazole 40 mg (2 x 20 mg) PO DAILY polyethylene glycol 3350 17 grams PO DAILY [RAISED TOILET SEAT As directed] rosuvastatin 40 mg PO DAILY 90 days sennosides-docusate sodium 8.6-50 mg (Senna Plus) 1 tab PO BEDTIME tizanidine 4 mg PO BEDTIME PRN 90 days trazodone 25 mg (1/2 x 50 mg) PO TID [WHEELCHAIR As directed] [Wheelchair assessment and repair As directed] Tobacco use date assessed: 03/29/25 Fall risk assessment: No Falls in past year Last assessed Fall Risk: 03/29/25 Dental Screening Dental Screen Date: 03/29/25 Did you have a dental visit in the last 12 months?: No Did you have a dental problem in the last 6 months where you did not have access to dental care?: No Was dental information given to patient?: Patient has dentist HPI 4 Month F/U HPI Details Patient comes in today for her follow up visit - information is obtained mostly from her daughter as patient has some cognitive impairment due to her dementia Patient is reportedly doing okay lately She denies any headaches or dizziness Denies any chest pains, no increased shortness of breath No nausea /vomiting, no abdominal pain No change in bowel habits noted She had her follow-up labs done last week but her chem profile was not done as her specimen was reportedly hemolyzed - to discuss her results [facility] Medical History Uncontrolled type 2 diabetes mellitus with hyperglycemia Overactive bladder Vitamin D deficiency Allergic rhinitis Osteoporosis GERD (gastroesophageal reflux disease) Essential hypertension Pure hypercholesterolemia Nocturnal hypoxemia Acquired hypothyroidism Obesity (BMI 30-39.9) Diabetes mellitus Respiratory failure with hypercapnia SAVANNAH (obstructive sleep apnea) COPD (chronic obstructive pulmonary disease) Dementia with behavioral disturbance Asthma Otitis externa Elevated TSH Pain in left knee Morbid obesity with BMI of 45.0-49.9, adult Umbilical hernia without obstruction and without gangrene Osteoarthritis Memory impairment Surgical History H/O colonoscopy History of total left knee replacement History of total right knee replacement History of hysterectomy History of arthroplasty of left knee History of arthroplasty of right knee Family History Father Diabetes Cancer Mother Diabetes Social History Household Members: None Housing: Apartment Do you presently have visiting nurse or other home services: Yes (CL[facility] REHAB LIAISON through [facility]) Unable to assess alcohol history related to: Unable to respond and Unknown Alcohol intake: never Comment: 1:1 sitter Patient Tobacco Use Status: Former Tobacco user Tobacco use type: Cigarette Years Smoked: 50 e-Cigarette/Vaping Use: Never Used Second Hand Smoke Exposure: No service: No Current occupational status: disabled Sexual orientation: Straight/Heterosexual Cognitive needs: Yes (cane) Hearing needs: Yes (hearing aide) Vision needs: Yes (glasses) Questionnaire PHQ-9 Over the last 2 weeks, how often have you been bothered by any of the following problems? 1. Little interest or pleasure in doing things: several days 2. Feeling down, depressed, or hopeless: not at all 3. Trouble falling or staying asleep, or sleeping too much: several days 4. Feeling tired or having little energy: several days 5. Poor appetite or overeating: several days 6. Feeling bad about yourself - or that you are a failure or have let yourself or your family down: not at all 7. Trouble concentrating on things, such as reading the newspaper or watching television: several days 8. Moving or speaking so slowly that other people could have noticed. Or the opposite - being so fidgety or restless that you have been moving around a lot more than usual: several days 9. Thoughts that you would be better off or of hurting yourself in some way: not at all Total score: 6 Depression Screening Interpretation: Positive Depression Screening Follow-up: Follow-up Visit Requested Depression Screening Done: Yes 67248 - PHQ-9 Billing: Yes Source: Developed by Drs. Urban Chaudhary, Deanne Beatty, Sukh Lopez and colleagues, with an educational antonio from [employer]. Thrive Questionnaire Date Thrive assessed: 03/29/25 I am a: Patient What is your living situation today?: I have a steady place to live Within the past 12 months, did the food you bought not last and you didn't have the money to get more?: I choose not to answer this question Within the past 12 months, did you worry whether your food would run out before you got money to buy more?: I choose not to answer this question Do you have trouble paying for medicines?: I choose not to answer this question Do you have trouble getting transportation to medical appointments?: I choose not to answer this question Do you have trouble paying your heating and electricity bill?: I choose not to answer this question Do you have trouble taking care of your child, family member or friend?: I choose not to answer this question Do you have trouble with day-to-day activities such as bathing, preparing meals, shopping, managing finances, etc.?: I choose not to answer this question Are you currently unemployed and looking for a job?: I choose not to answer this question Are you interested in more education?: I choose not to answer this question Please select the resources that you would like help with: None Currently or been in a relationship where the following occur: I choose not to answer THRIVE Score: 0 AUDIT C Alcohol Use Questionnaire (AUDIT-C) 1. How often do you have a drink containing alcohol?: Never 3. How often do you have six or more drinks on one occasion?: Never Total Score: 0 Score Reviewed/Action Taken: Yes OSVALDO-7 AMB Questionnaire OSVALDO-7 Date OSVALDO - 7 assessed: 03/29/25 Feeling nervous, anxious, or on edge: 1 = Several days Not being able to stop or control worryin = Several days Worrying too much about different things: 1 = Several days Trouble relaxin = Several days Being so restless that it is hard to sit still: 1 = Several days Becoming easily annoyed or irritable: 1 = Several days Feeling afraid as if something awful might happen: 1 = Several days Total OSVALDO-7 score (0-4 normal; 5-9 mild; 10-14 moderate; 15-21 severe): 7 Source: Developed by Drs. Urban Chaudhary, Deanne Beatty, Sukh Lopez and colleagues, with an educational antonio from [employer]. Review of Systems Const Details: Patient continues to have some ongoing confusion and most of her information here is obtained from patient's daughter Unobtainable due to mental status (most of her information here is obtained from patient's daughter) Denies chills, Denies fatigue, Denies fever(s) and Denies headache(s) ENT Denies dysphagia, Denies dizziness, Denies otalgia, Denies headache(s), Denies neck pain, Denies odynophagia and Denies sore throat Card Denies chest pain, Denies palpitations and Reports dyspnea on exertion (mild, chronic) Resp Denies chest congestion, Denies cough and Reports dyspnea on exertion (mild, chronic) GI Denies abdominal pain, Denies constipation, Denies dysphagia, Denies heartburn, Denies diarrhea, Denies nausea, Denies odynophagia and Denies vomiting Denies difficulty voiding, Denies dysuria and Reports urinary incontinence Musc Denies back pain, Reports arthralgias (over the right shoulder and left knee, on and off) and Denies neck pain Skin/Breast Denies rash Neuro Reports behavioral changes (on and off), Reports confusion, Denies dizziness, Denies headache(s) and Reports memory loss Psych Reports anxiety, Reports behavioral changes (on and off), Reports confusion and Reports memory loss Endo Denies fatigue and Denies palpitations Physical exam (Primary Care) Vital Signs: Last Vital Signs Pulse 69 03/29/25 09:45 BP 124/78 03/29/25 09:45 Pulse Ox 95 03/29/25 09:45 Oxygen Delivery Method Room Air 03/29/25 09:45 BMI result Body Mass Index 38.8 Tobacco/Smoking Status: Tobacco use Status Tobacco use date assessed 03/29/25 03/29/25 09:47 Patient Tobacco Use Status Former Tobacco user 03/29/25 09:47 Tobacco use type Cigarette 03/29/25 09:47 e-Cigarette/Vaping Use Never Used 03/29/25 09:47 PHQ-9: PHQ-9 Score PHQ-9: Total score 6 03/29/25 09:47 Depression Screening Interpretation: Positive Depression Screening Follow-up: Follow-up Visit Requested Thrive Assessment: Date of Thrive Assessment Date Thrive assessed 03/29/25 03/29/25 09:47 Currently or been in a relationship where the following occur: I choose not to answer Const General: confusion Orientation/consciousness: confusion HENMT Ears: TM's normal bilaterally and EAC's normal Throat: Yes posterior oropharynx normal and Yes tonsils normal (no TP congestion) Neck Neck: Yes supple and No lymphadenopathy Thyroid: Thyroid normal Resp Auscultation: no crackles, no rales, no wheezes and diminished lung sounds (slightly) bilateral Cardio Rate: regular rate Rhythm: regular rhythm Heart sounds: no murmurs GI Palpation (GI): Soft to palpation and nontender Auscultation: normal bowel sounds General: Yes no CVA tenderness Back/Spine/Pelvis Back: no CVA tenderness Skin Rashes: no rashes Neuro General: confusion Extrem General: Yes no clubbing, cyanosis or edema Results Reviewed Results Reviewed: Laboratory Tests 03/14/25 03/14/25 03/14/25 08:53 09:06 09:15 WBC 6.5 Hgb 13.5 Hct 43.0 Plt Count 231 POC Creatinine POC GFR Hemoglobin A1c % 8.3 H Vitamin B12 317 Ur Specific Echo 1.015 Urine Protein Negative Urine Glucose (UA) Negative Urine Blood Negative Urine Nitrite Negative Ur Leukocyte Esterase Trace H Microalb/Creat Ratio 10.2 03/21/25 15:33 WBC Hgb Hct Plt Count POC Creatinine 0.6 POC GFR > 60 Hemoglobin A1c % Vitamin B12 Ur Specific Echo Urine Protein Urine Glucose (UA) Urine Blood Urine Nitrite Ur Leukocyte Esterase Microalb/Creat Ratio Coding Level of Care Code Est Pt Level 4 (25557) Complex EM visit Add On G2211 Diagnoses Type 2 diabetes mellitus without complication, with long-term current use of insulin E11.9; Z79.4 Diabetes mellitus type: type 2 Diabetes mellitus snf insulin use: with superintendent marine oil terminal use Diabetes mellitus complication status: without complication Dementia with behavioral disturbance F03.918 Pure hypercholesterolemia E78.00 Essential hypertension I10 Mild intermittent asthma without complication J45.20 Asthma severity: mild Asthma persistence: intermittent Asthma complication type: uncomplicated Nocturnal hypoxemia G47.34 SAVANNAH (obstructive sleep apnea) G47.33 Acquired hypothyroidism E03.9 Gastroesophageal reflux disease without esophagitis K21.9 Esophagitis presence: without esophagitis Age-related osteoporosis without current pathological fracture M81.0 Osteoporosis type: age-related Presence of current pathological fracture: without current pathological fracture Vitamin D deficiency E55.9 Allergic rhinitis, unspecified seasonality, unspecified trigger J30.9 Allergic rhinitis trigger: unspecified Allergic rhinitis seasonality: unspecified Primary osteoarthritis, unspecified site M19.91 Osteoarthritis location: unspecified site Osteoarthritis type: primary Umbilical hernia without obstruction and without gangrene K42.9 Obstruction and gangrene presence: without obstruction or gangrene Overactive bladder N32.81 Obesity (BMI 30-39.9) E66.9 Additional Codes PHQ-9 - 91380 - PHQ-9 Billing: Yes ([id number]) Assessment & Plan Assessment & Plan (1) Diabetes mellitus: Code(s): E11.9 - Type 2 diabetes mellitus without complications Category: Medical Qualifiers: Diabetes mellitus type: type 2 Diabetes mellitus superintendent marine [employer] insulin use: with snf use Diabetes mellitus complication status: without complication Qualified Code(s): E11.9 - Type 2 diabetes mellitus without complications; Z79.4 - middle or intermediate 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 (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) use of insulin Plan: Her HgbA1c has improved to 8.3% on her labs done last week (was previously at 9.1% earlier this year) - goal is < 7.0% Reinforced diabetic diet (to patient's daughter) She is supposed to be on Humalog Mix 75/25 60 units SQ BID and Januvia 100 mg QD but her daughter states that it is getting more and more difficult now to get patient to take her medications, including her insulin injections, as well as to comply with her diet, due to her declining cognition States that patient hardly eats anything most of the time nowadays and attempts to convince her to eat something is often met with angry outbursts from patient or she just completely ignores any instructions We have referred patient to endocrinology previously and she is now being followed by endocrinology for her diabetes although it looks like she was seen once in December 2024 and has no follow up appointments scheduled yet so far Have advised patient's daughter to reach out to the diabetes clinic and schedule a follow up appt for patient EVANS (2) Dementia with behavioral disturbance: Code(s): F03.918 - Unspecified dementia, unspecified severity, with other behavioral disturbance Category: Medical Plan: She required chemical restraint with antipsychotics and admission briefly to the geriatric psychiatry unit during her hospital admission in the fall of 2022 She has since been weaned off her psychiatric meds and released back to the care of her daughter and family, who are willing to care for her 24/05 Continue Trazodone 25 mg TID and Donepezil 10 mg Q HS Follow up with psychiatry as scheduled Patient has also been referred to neurology for further evaluation and management and was seen by Dr. Umana back in May 2023 She was diagnosed then with Alzheimer's disease and started additionally on Memantine 5 mg BID but patient's daughter states that she would not even take the medication (3) Pure hypercholesterolemia: Code(s): E78.00 - Pure hypercholesterolemia, unspecified Category: Medical Plan: Results her labs done last week reviewed and discussed with patient's daughter BUT her chem profile, including her fasting lipids, were not done as her specimen was supposedly hemolyzed Her daughter states that they were contacted by the lab to go back and have her labs redrawn but they have not been able to do so yet Have reminded them that patient's LDL cholesterol was elevated at 154 mg/dL benjamín ier this year Patient's daughter has again mentioned before that patient has not been compliant with the medications and it is almost impossible nowadays to get her to take her oral medications and she is wondering if she can be switched to an injectable one, which the daughter can give to her without fear of patient refusing the medication We did try to switch her over from her oral Rosuvastatin 40 mg QD to Repatha 140 mg SQ every 2 weeks at her last visit BUT it does not look like her Rx was filled Will send in her Rx for Repatha AGAIN Will have patient recheck her labs and fasting lipids in 4 months for follow-up (4) Essential hypertension: Code(s): I10 - Essential (primary) hypertension Category: Medical Plan: Reinforced low sodium diet - goal is systolic BP of at least 130 to 140 mm or less Continue Metoprolol ER 50 mg QD and HCTZ 12.5 mg QD (5) Asthma: Code(s): J45.909 - Unspecified asthma, uncomplicated Category: Medical Qualifiers: Asthma severity: mild Asthma persistence: intermittent Asthma complica tion type: uncomplicated Qualified Code(s): J45.20 - Mild intermittent asthma, uncomplicated Plan: Appears controlled Continue Breo Ellipta 100-25 mcg 1 inhalation QD and Albuterol HFA 2 inhalations Q 6 hours PRN She also has Albuterol nebulizer solution that she uses with her updraft device when needed Follow up with pulmonary as scheduled (6) Nocturnal hypoxemia: Code(s): G47.34 - Idiopathic sleep related nonobstructive alveolar hypoventilation Category: Medical Plan: Patient had mild hypoxemia and hypercapnia when she was hospitalized a couple of years ago Oxygen saturation during 6 minutes of walking stayed normal; overnight oximetry done recently showed oxygen saturation staying below 88% for 23 minutes and she qualifies for oxygen use at night Her daughter is now trying to convince patient to agree to using oxygen at night Follow up with [facility] Pulmonary (Dr. Singh) as scheduled (7) SAVANNAH (obstructive sleep apnea): Comment: PATIENT DOES HAVE HISTORY OF OBSTRUCTIVE SLEEP APNEA SINCE 2013 WHEN SHE HAD THE SLEEP STUDY. BUT SHE HAS NOT BEEN ABLE TO USE THE CPAP. CLAIMS THAT SHE IS SLEEPING OKAY. SHE HAS FEATURES OF CHRONIC HYPOVENTILATION SYNDROME, THAT HAS IMPROVED WITH THE USE OF ACETAZOLAMIDE 250 MG DAILY. HOWEVER SHE HAS TENDENCY TO MISS TAKING THIS MEDICATION. Code(s): G47.33 - Obstructive sleep apnea (adult) (pediatric) Category: Medical Plan: (+) SAVANNAH - sleep study done in 2013 Patient has not been able to use her CPAP device and claims that she sleeps okay without the device but patient also has dementia and whatever she says would not really be accurate or reliable She reportedly has features of chronic hypoventilation syndrome and was instead started on Acetazolamide, which has helped improve her symptoms Continue Acetazolamide 250 mg QD Follow up with pulmonary / sleep medicine as scheduled (8) Acquired hypothyroidism: Code(s): E03.9 - Hypothyroidism, unspecified Category: Medical Plan: Continue Levothyroxine 25 mcg QD Will recheck her TFTs in 4 months for follow up (9) GERD (gastroesophageal reflux disease): Code(s): K21.9 - Gastro-esophageal reflux disease without esophagitis Category: Medical Qualifiers: Esophagitis presence: without esophagitis Qualified Code(s): K21.9 - Gastro-esophageal reflux disease without esophagitis Plan: Dietary restrictions reinforced Continue Omeprazole 20 mg 2 capsules (40 mg) QD and Famotidine 20 mg BID (10) Osteoporosis: Comment: S/P Alendronate x 5 yrs Code(s): M81.0 - Age-related osteoporosis without current pathological fracture Category: Medical Qualifiers: Osteoporosis type: age-related Presence of current pathological fracture: without current pathological fracture Qualified Code(s): M81.0 - Age- related osteoporosis without current pathological fracture Plan: Repeat BMD done on 05/22/2022 revealed (+) osteoporosis based on the lowest T- score value of -2.6 in the lumbar spine applying World Health Organization criteria - BMD appears mostly unchanged from his previous BMD done on 09/20/2017 S/P Alendronate Rx x 5 yrs - Rx was stopped a couple of years ago Fall precautions reinforced Have reminded patient's daughter to make sure patient is on daily Vitamin D and calcium supplements daily Will continue to monitor her BMD every 2 to 3 years IF patient is able to cooperate with the procedure, which may get more and more difficult due to her declining cognition (11) Vitamin D deficiency: Code(s): E55.9 - Vitamin D deficiency, unspecified Category: Medical Plan: Continue Vitamin D 85727 units once a week (12) Allergic rhinitis: Code(s): J30.9 - Allergic rhinitis, unspecified Category: Medical Qualifiers: Allergic rhinitis trigger: unspecified Allergic rhinitis seasonality: unspecified Qualified Code(s): J30.9 - Allergic rhinitis, unspecified Plan: Continue Nasonex nasal spray and OTC Loratadine 10 mg QD PRN (13) Osteoarthritis: Comment: (+) Hx of bilateral knee arthroplasty - right knee in December 2010 and left knee on 07/18/2013 Code(s): M19.90 - Unspecified osteoarthritis, unspecified site Category: Medical Qualifiers: Osteoarthritis location: unspecified site Osteoarthritis type: primary Qualified Code(s): M19.91 - Primary osteoarthritis, unspecified site Plan: She was on Tramadol 50 mg TID PRN and Celecoxib 200 mg QD PRN in the past but she has been refusing to take most of her meds lately X-rays of the right shoulder done back in September 2019 showed (+) degenerative changes in the shoulder She was started back on Celebrex by orthopedics recently and she is scheduled to start physical therapy next week Follow up with orthopedics as scheduled (14) Umbilical hernia: Code(s): K42.9 - Umbilical hernia without obstruction or gangrene Category: Medical Qualifiers: Obstruction and gangrene presence: without obstruction or gangrene Qualified Code(s): K42.9 - Umbilical hernia without obstruction or gangrene Plan: Patient was referred to surgery and she was seen a couple of months ago but she has reportedly refused to go for any surgery Abdominal CT done a couple of days ago revealed (+) large infraumbilical ventral hernia over the left lower quadrant containing fat and non-obstructed small bowel Follow up with surgery as scheduled or as needed (15) Overactive bladder: Code(s): N32.81 - Overactive bladder Category: Medical Plan: Follow up with urology as scheduled although have discussed with patient's daughter that they may not be able to do much here due to patient's urinary incontinence associated with her declining cognition (16) Obesity (BMI 30-39.9): Code(s): E66.9 - Obesity, unspecified Category: Medical Plan: Reinforced diet; exercise and weight loss are unrealistic at this time given patient's significant cognitive decline Plan Follow-up in 4 months Orders: Orders Lipid Panel 4 Months E78.00 - Pure hypercholesterolemia, unspecified Hemoglobin A1c 4 Months E11.9 - Type 2 diabetes mellitus without complications Microalbumin, Random (w Creat) 4 Months E11.9 - Type 2 diabetes mellitus without complications Free T4 (Free Thyroxine) 4 Months E03.9 - Hypothyroidism, unspecified Vitamin D 25-OH Total 4 Months E55.9 - Vitamin D deficiency, unspecified Vitamin B12 and Folate 4 Months E53.8 - Deficiency of other specified B group vitamins Complete Blood Count Auto Diff 4 Months D64.9 - Anemia, unspecified Comprehensive [place]. Panel Fast 4 Months E78.00 - Pure hypercholesterolemia, unspecified UA CC w/rflx Micro + Cult 4 Months R30.0 - Dysuria Thyroid Stimulating Hormone 4 Months E03.9 - Hypothyroidism, unspecified Comprehensive [place]. 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
[2025-03-29 09:45] VITALS: BP 124/78; PULSE 69; O2SAT 95; BMI 38.8
== END 2025-03-29 10:41 | disposition home or self-care (01) ==
LOC: HO.HMCH 09:01
PROVIDERS: PCP Internal Medicine; Visit Provider Internal Medicine
DX: E11.9 Type 2 diabetes mellitus without complications (principal); Z79.4 Long term (current) use of insulin; F03.918 Unspecified dementia, unspecified severity, with other behavioral disturbance; E78.00 Pure hypercholesterolemia, unspecified; I10 Essential (primary) hypertension; J45.20 Mild intermittent asthma, uncomplicated; G47.34 Idiopathic sleep related nonobstructive alveolar hypoventilation; G47.33 Obstructive sleep apnea (adult) (pediatric); E03.9 Hypothyroidism, unspecified; K21.9 Gastro-esophageal reflux disease without esophagitis; M81.0 Age-related osteoporosis without current pathological fracture; E55.9 Vitamin D deficiency, unspecified

== ENCOUNTER → 2025-03-29 09:01 | Outpatient (BNVA) | payer OTHER, SELFPAY | PROVIDERS: PCP Internal Medicine; Visit Provider Internal Medicine | DX: E11.9 Type 2 diabetes mellitus without complications (principal); G30.9 Alzheimer's disease, unspecified; F02.818 Dementia in other diseases classified elsewhere, unspecified severity, with other behavioral disturbance; E78.00 Pure hypercholesterolemia, unspecified; I10 Essential (primary) hypertension; J45.20 Mild intermittent asthma, uncomplicated; G47.34 Idiopathic sleep related nonobstructive alveolar hypoventilation; G47.33 Obstructive sleep apnea (adult) (pediatric); E03.9 Hypothyroidism, unspecified; K21.9 Gastro-esophageal reflux disease without esophagitis; M81.0 Age-related osteoporosis without current pathological fracture; E55.9 Vitamin D deficiency, unspecified; J30.9 Allergic rhinitis, unspecified; M19.91 Primary osteoarthritis, unspecified site; K42.9 Umbilical hernia without obstruction or gangrene; N32.81 Overactive bladder; E66.9 Obesity, unspecified; Z68.38 Body mass index [BMI] 38.0-38.9, adult; Z79.4 Long term (current) use of insulin; Z79.899 Other long term (current) drug therapy | CPT/HCPCS: 96127; 99212 ==

== ENCOUNTER 2025-04-03 08:46 | Outpatient (REF) | payer OTHER, SELFPAY ==
[2025-04-03 10:37] LABS: Cholesterol 239 mg/dL (<200); HDL Cholesterol 57 mg/dL (>40); LDL Cholesterol Calculated 161 mg/dL (<100); Triglycerides 108 mg/dL (<150)
== END 2025-04-03 08:47 | disposition home or self-care (01) ==
LOC: HO.LAB 08:46
PROVIDERS: Visit Provider Internal Medicine
DX: E78.00 Pure hypercholesterolemia, unspecified (principal)
CPT/HCPCS: 36415; 80061

== ENCOUNTER 2025-04-10 10:38 | Outpatient (AMB) | payer OTHER, SELFPAY ==
--- NOTE | 2025-04-10 10:40 | A.OFFVIS_ITS ---
Vital Signs 04/10/25 10:50 Height 5 ft 3 in Weight 220 lb BMI 39.0 BP 179/74 H Blood Pressure Location Rt brachial Position Sitting Pulse 88 Intake Visit Reasons: s/p CT abd/pel 03/21/25 Intake Note: Patient here s/p CT abdomen pelvis on 03-21-2025. Patient c/o: patient states does not want surgery. Campus President Required: No Accompanied by: daughter Jacinta Allergies No Known Allergies Allergy (Verified 04/10/25 10:50) Medication List - Last Reconciled 04/10/25 by All Reynoso MD acetazolamide 250 mg PO DAILY 90 days albuterol sulfate 90 mcg/actuation (Ventolin HFA) 2 puffs inhalation Q6H PRN barium sulfate 2%(w/v) (Readi-Cat 2) 900 mL PO ONCE [bed pads As directed] [BEDSIDE COMMODE As directed] blood sugar diagnostic As directed blood sugar diagnostic (OneTouch Ultra Test strips) USE TWICE DAILY DIRECTED blood-glucose meter twice a day blood-glucose sensor ([place] EnergyStyle David 3 Sensor device) apply new sensor every 14 days blood-glucose,detonator maker,cont (FreeStyle David 3 [place]) Use daily to monitor blood glucose levels continuously. celecoxib (Celebrex) 200 mg PO BID 30 days chair, wheel (Wheel chair) As directed cholecalciferol (vitamin D3) 1,250 mcg PO QWEEK coenzyme Q10 (Co Q-10) 100 mg PO DAILY 90 days dextrose (TRUEplus Glucose) 15 grams (32 mL) PO Q15M PRN donepezil 10 mg PO BEDTIME 30 days [ELECTRIC WHEELCHAIR As directed] [EPP MATTRESS As directed - FOR INDEFINITE USE] ergocalciferol (vitamin D2) 1,250 mcg PO QWEEK 90 days evolocumab (Repatha SureClick) 140 mg subcut Q2W 4 weeks famotidine 20 mg PO BID flash glucose scanning reader ([place] EnergyStyle David 2 [place]) As directed flash glucose sensor (FreeStyle David 2 Sensor kit) As directed fluticasone furoate-vilanterol 100-25 mcg/dose (Breo Ellipta) 1 ea PO DAILY [FRONT-WHEELED WALKER (large) As directed] [HOSPITAL BED As directed] hydrochlorothiazide 12.5 mg PO DAILY 90 days insulin lispro protamin-lispro 100 unit/mL (75-25) (Humalog Mix 75-25(U-100)Insuln) 50 units subcut BID insulin syringe-needle U-100 (BD Insulin Syringe Ultra-Fine) USE 1 MISCELLANEOUS 2 TIMES A DAY insulin syringe-needle U-100 (BD Insulin Syringe Ultra-Fine) use twice a day lamotrigine 25 mg PO DAILY@1200 30 days levothyroxine 25 mcg PO DAILY lidocaine 5% 1 patch topical DAILY [LIGHT TRANSFER WHEELCHAIR As directed] loratadine 10 mg PO DAILY PRN 90 days loratadine 10 mg PO DAILY memantine 5 mg PO BID metoprolol succinate ER 50 mg See Protocol PO DAILY 30 days mometasone 50 mcg/actuation 2 sprays intranasal DAILY multivitamin with folic acid 400 mcg (Daily-Ike (with folic acid)) 1 tab PO DAILY omeprazole 40 mg (2 x 20 mg) PO DAILY polyethylene glycol 3350 17 grams PO DAILY [RAISED TOILET SEAT As directed] rosuvastatin 40 mg PO DAILY 90 days sennosides-docusate sodium 8.6-50 mg (Senna Plus) 1 tab PO BEDTIME tizanidine 4 mg PO BEDTIME PRN 90 days trazodone 25 mg (1/2 x 50 mg) PO TID [WHEELCHAIR As directed] [Wheelchair assessment and repair As directed] HPI HPI s/p CT abd/pel 03/21/25: Details: She was seen by Dr. Hampton for abdominal wall hernias last December, and is h ere for follow-up. She was sent by Dr. Hampton for a CAT scan to define this hernias She denies any new complaints. Denies any pain or tenderness on her hernias. She denies any GI complaints She has known dementia. [facility] Medical History (Updated 04/10/25 @ 11:35 by All Reynoso MD) Ventral hernia Uncontrolled type 2 diabetes mellitus with hyperglycemia Overactive bladder Vitamin D deficiency Allergic rhinitis Osteoporosis GERD (gastroesophageal reflux disease) Essential hypertension Pure hypercholesterolemia Nocturnal hypoxemia Acquired hypothyroidism Obesity (BMI 30-39.9) Diabetes mellitus Respiratory failure with hypercapnia SAVANNAH (obstructive sleep apnea) COPD (chronic obstructive pulmonary disease) Dementia with behavioral disturbance Asthma Otitis externa Elevated TSH Pain in left knee Morbid obesity with BMI of 45.0-49.9, adult Umbilical hernia without obstruction and without gangrene Osteoarthritis Memory impairment Surgical History H/O colonoscopy History of total left knee replacement History of total right knee replacement History of hysterectomy History of arthroplasty of left knee History of arthroplasty of right knee Family History Father Diabetes Cancer Mother Diabetes Social History Household Members: None Housing: Apartment Do you presently have visiting nurse or other home services: Yes (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 [employer]) Unable to assess alcohol history related to: Unable to respond and Unknown Alcohol intake: never Comment: 1:1 sitter Patient Tobacco Use Status: Former Tobacco user Tobacco use type: Cigarette Years Smoked: 50 e-Cigarette/Vaping Use: Never Used Second Hand Smoke Exposure: No service: No Current occupational status: disabled Sexual orientation: Straight/Heterosexual Cognitive needs: Yes (cane) Hearing needs: Yes (hearing aide) Vision needs: Yes (glasses) Review of Systems Const Denies chills and Denies fever(s) Card Denies chest pain, Denies dyspnea and Reports dyspnea on exertion Resp Denies cough, Denies dyspnea and Reports dyspnea on exertion GI Denies abdominal pain Details: Urinary incontinence Physical Exam Vital Signs: Last Vital Signs Pulse 88 04/10/25 10:50 BP 179/74 H 04/10/25 10:50 BMI result Body Mass Index 39.0 Const Other: Morbidly obese, using a walker General: comfortable and no acute distress Resp Effort & Inspection: normal respiratory effort Cardio Rate: regular rate GI Other: Obese with pannus, umbilical hernia about 3 cm, reducible, nontender, also with a vague large reducible hernia on the lower part of the abdomen along her pannus Palpation (GI): Soft to palpation Assessment & Plan Assessment & Plan (1) Ventral hernia: Code(s): K43.9 - Ventral hernia without obstruction or gangrene Category: Medical Plan: I have reviewed her CAT scan. This shows a fat containing umbilical hernia, with a defect about 1.5 cm. There is a larger hernia on the lower abdomen containing small bowel loops. This seems to be reducible at least partially on examination. She denies any tenderness or pain She denies any GI complaints I explained to her and her daughter that repair of this hernias we will require her to be under general anesthesia will involve significant perioperative risks considering that she has multiple other medical problems including advanced age with obesity and dementia. Her daughter did state that she was supposed to have knee surgery what was recommended against proceeding in view of her multiple perioperative risks The patient at daughter state that they do not want her to undergo surgery at this time. The hernias do not bother currently She can come back to the office on a p.r.n. basis therefore. Coding Level of Care Code Est Pt Level 3 (23908) Diagnoses Ventral hernia K43.9
[2025-04-10 10:50] VITALS: BP 179/74; PULSE 88; BMI 39.0
== END 2025-04-10 11:09 | disposition home or self-care (01) ==
LOC: HO.HGS 10:39
PROVIDERS: PCP Internal Medicine; Visit Provider Surgery
DX: K43.9 Ventral hernia without obstruction or gangrene (principal)
CPT/HCPCS: 99213

== ENCOUNTER → 2025-04-10 10:38 | Outpatient (BNVA) | payer OTHER, SELFPAY | PROVIDERS: PCP Internal Medicine; Visit Provider Surgery | DX: K43.9 Ventral hernia without obstruction or gangrene (principal) | CPT/HCPCS: 99212 ==

== ENCOUNTER 2025-04-20 09:02 | Outpatient (AMB) | payer OTHER, SELFPAY ==
--- NOTE | 2025-04-20 09:04 | A.OFFVIS_ITS ---
Vital Signs 04/20/25 09:09 Height 5 ft 3 in Weight 221 lb 9.033 oz BMI 39.2 BP 154/78 H Blood Pressure Location Lt brachial Position Sitting Pulse 74 Pulse Source Pulse Oximeter Pulse Oximetry (%) 93 Oxygen Delivery Method Room Air Intake Visit Reasons: T2DM Intake Note: Patient present today for T2DM follow up. Last Diabetic Eye exam: September 2024, seen yearly. Last Podiatry Visit: Does not see a Transmission Maintenance Supervisor Random Glucose: 230 mg/dl HgA1C: 8.3% 03/14/2025 Professor Of Pathology Required: Yes Professor Of Pathology Language: [employer]: Professor Of Pathology Offered & Declined Accompanied by: Daughter Allergies No Known Allergies Allergy (Verified 04/20/25 09:10) Medication List - Last Reconciled 04/20/25 by CEM Bautista acetazolamide 250 mg PO DAILY 90 days albuterol sulfate 90 mcg/actuation (Ventolin HFA) 2 puffs inhalation Q6H PRN barium sulfate 2%(w/v) (Readi-Cat 2) 900 mL PO ONCE [bed pads As directed] [BEDSIDE COMMODE As directed] blood sugar diagnostic As directed blood sugar diagnostic (OneTouch Ultra Test strips) USE TWICE DAILY DIRECTED blood-glucose meter twice a day blood-glucose sensor (FreeStyle David 3 Plus Sensor device) Apply 1 new sensor every 15 days as directed to monitor blood glucose continuously. blood-glucose,ladle pourer,cont (FreeStyle David 3 [place]) Use daily to monitor blood glucose levels continuously. celecoxib (Celebrex) 200 mg PO BID 30 days chair, wheel (Wheel chair) As directed cholecalciferol (vitamin D3) 1,250 mcg PO QWEEK coenzyme Q10 (Co Q-10) 100 mg PO DAILY 90 days dextrose (TRUEplus Glucose) 15 grams (32 mL) PO Q15M PRN donepezil 10 mg PO BEDTIME 30 days [ELECTRIC WHEELCHAIR As directed] [EPP MATTRESS As directed - FOR INDEFINITE USE] ergocalciferol (vitamin D2) 1,250 mcg PO QWEEK 90 days evolocumab (Repatha SureClick) 140 mg subcut Q2W 4 weeks famotidine 20 mg PO BID fluticasone furoate-vilanterol 100-25 mcg/dose (Breo Ellipta) 1 ea PO DAILY [FRONT-WHEELED WALKER (large) As directed] [HOSPITAL BED As directed] hydrochlorothiazide 12.5 mg PO DAILY 90 days insulin glargine U-300 conc (Toujeo Max U-300 SoloStar) 8 units (0.0267 mL) subcut DAILY insulin syringe-needle U-100 (BD Insulin Syringe Ultra-Fine) USE 1 MISCELLANEOUS 2 TIMES A DAY insulin syringe-needle U-100 (BD Insulin Syringe Ultra-Fine) use twice a day lamotrigine 25 mg PO DAILY@1200 30 days levothyroxine 25 mcg PO DAILY lidocaine 5% 1 patch topical DAILY [LIGHT TRANSFER WHEELCHAIR As directed] loratadine 10 mg PO DAILY PRN 90 days loratadine 10 mg PO DAILY memantine 5 mg PO BID metoprolol succinate ER 50 mg See Protocol PO DAILY 30 days mometasone 50 mcg/actuation 2 sprays intranasal DAILY multivitamin with folic acid 400 mcg (Daily-Ike (with folic acid)) 1 tab PO DAILY omeprazole 40 mg (2 x 20 mg) PO DAILY polyethylene glycol 3350 17 grams PO DAILY [RAISED TOILET SEAT As directed] rosuvastatin 40 mg PO DAILY 90 days sennosides-docusate sodium 8.6-50 mg (Senna Plus) 1 tab PO BEDTIME tizanidine 4 mg PO BEDTIME PRN 90 days trazodone 25 mg (1/2 x 50 mg) PO TID [WHEELCHAIR As directed] [Wheelchair assessment and repair As directed] HPI Comments Details: This is an 84-year-old female with a past medical history of overactive bladder, vitamin-D deficiency, GERD, hypertension, hyperlipidemia, COPD and nocturnal hypoxemia, type 2 diabetes, hypothyroidism, SAVANNAH, dementia, asthma and obesity presenting for a diabetic management consult. She is with her daughter even who is the caregiver. Diagnosed 20-30 years ago. Hemoglobin A1c 8.3% 03/14/2025. Reviewed David 3 download CGM active 96% Average glucose 216 GMI 8.5% Glucose variability 33.1% Very high 32% High 33% Target range 34% Hypoglycemia 1% She had 1 episode with the sensor recorded hypoglycemia overnight, but her daughter says she had no symptoms and did not treat it, and her blood sugar normalized. She also said she had not taken Humalog mix that evening. She has postprandial hyperglycemia. She lives with her daughter. Either her daughter, her grandson or her DIRECTOR OF MEDICAL STAFF SERVICES is with her during the day and night. Current medication regimen: Humalog mix 75/25 50 units twice a day. Past medications: She was on metformin, and they are uncertain why it was discontinued in the past. Daughter thinks she may have been on a GLP 1 injection at 1 point. She was on Januvia, but this was discontinued because she does not take pills well. She gets agitated. Compliance issues: Dementia complicates medication compliance and diet compliance. Daughter reports she has only taken Humalog mix once or twice per week in the morning. She has not taken it since Wednesday this week. She never takes it in the evening. Hypoglycemia symptoms: none Hyperglycemia symptoms: headache, dizzy, blurry vision, polydipsia Eye exam: yearly with [facility]. No retinopathy or macular edema. She has cataracts. Microvascular complications: neuropathy Macrovascular complications: ?mild [place] many years ago - daughter said she had a cardiac catheterization but no stent or CABG. ROS: Constitutional: No fevers or chills or unexplained weight loss. Eyes: No vision changes, blurry vision, double vision Respiratory: No shortness of breath Cardiovascular: No chest pain Gastrointestinal: No anorexia, nausea, vomiting or diarrhea. No abdominal pain Neurologic: No headache, dizziness, syncope Skin: No rash or itching. Physical exam: Constitutional: Alert, in no distress. Head: Normocephalic. Eyes: Pupils are equal, round and reactive to light. Extraocular muscles intact. Neck: Supple, Full range of motion. No lymphadenopathy. No palpable thyroid masses. Respiratory: Clear to auscultation. Cardiovascular: S1 S2 regular. No murmurs Right foot: Warm and well perfused. No clubbing, cyanosis or edema. No open wounds. Left foot: Warm and well perfused. No clubbing, cyanosis or edema. No open wounds. [facility] Medical History (Updated 04/10/25 @ 11:35 by All Reynoso MD) Ventral hernia Uncontrolled type 2 diabetes mellitus with hyperglycemia Overactive bladder Vitamin D deficiency Allergic rhinitis Osteoporosis GERD (gastroesophageal reflux disease) Essential hypertension Pure hypercholesterolemia Nocturnal hypoxemia Acquired hypothyroidism Obesity (BMI 30-39.9) Diabetes mellitus Respiratory failure with hypercapnia SAVANNAH (obstructive sleep apnea) COPD (chronic obstructive pulmonary disease) Dementia with behavioral disturbance Asthma Otitis externa Elevated TSH Pain in left knee Morbid obesity with BMI of 45.0-49.9, adult Umbilical hernia without obstruction and without gangrene Osteoarthritis Memory impairment Surgical History H/O colonoscopy History of total left knee replacement History of total right knee replacement History of hysterectomy History of arthroplasty of left knee History of arthroplasty of right knee Family History Father Diabetes Cancer Mother Diabetes Social History Household Members: None Housing: Apartment Do you presently have visiting nurse or other home services: Yes (DIRECTOR OF MEDICAL STAFF SERVICES through [employer]) Unable to assess alcohol history related to: Unable to respond and Unknown Alcohol intake: never Comment: 1:1 sitter Patient Tobacco Use Status: Former Tobacco user Tobacco use type: Cigarette Years Smoked: 50 e-Cigarette/Vaping Use: Never Used Second Hand Smoke Exposure: No service: No Current occupational status: disabled Sexual orientation: Straight/Heterosexual Cognitive needs: Yes (cane) Hearing needs: Yes (hearing aide) Vision needs: Yes (glasses) Physical Exam Vital Signs: Last Vital Signs Pulse 74 04/20/25 09:09 BP 154/78 H 04/20/25 09:09 Pulse Ox 93 04/20/25 09:09 Oxygen Delivery Method Room Air 04/20/25 09:09 BMI result Body Mass Index 39.2 Results Reviewed Results Reviewed: Laboratory Last Values Glucose (Clinic) 230 mg/dL (60-115) H 04/20/25 09:18 Laboratory Tests 11/22/24 03/14/25 03/14/25 09:55 08:53 09:06 Plt Count 231 Creatinine 0.88 Estimated GFR > 60 Hemoglobin A1c % 8.3 H Triglycerides Cholesterol LDL Cholesterol, Calc HDL Cholesterol Urine Creatinine 87.43 Urine Microalbumin 9.0 Microalb/Creat Ratio 10.2 04/03/25 09:13 Plt Count Creatinine Estimated GFR Hemoglobin A1c % Triglycerides 108 Cholesterol 239 H LDL Cholesterol, Calc 161 H HDL Cholesterol 57 Urine Creatinine Urine Microalbumin Microalb/Creat Ratio Assessment & Plan Assessment & Plan (1) Uncontrolled type 2 diabetes mellitus with hyperglycemia: Code(s): E11.65 - Type 2 diabetes mellitus with hyperglycemia Category: Medical Plan In summary this is an 84-year-old female with uncontrolled type 2 diabetes complicated by dementia. Her daughter is her manager grant, and she has a DIRECTOR OF MEDICAL STAFF SERVICES. Due to dementia related agitation pills are difficult to administer per her daughter. She is noncompliant with her Humalog mix. We will discontinue it. Trial of Toujeo 8 units every morning. Daughter says she is more agitated in the evening making medications more difficult to administer. Advised them to call if she has blood sugars under 75 or greater than 250. Given frailty and dementia target A1c is 7.5%-8.5%. I suspect the episode of hypoglycemia on the CGM download was not accurate be cause she did not use her insulin that night. She was asymptomatic. Advised her daughter to check a fingerstick glucose to confirm if this happens again. Discontinue David 3 and prescribed David 3 Plus with three-month supply. Daughter says the other has been difficult to get from the pharmacy, and it is being discontinued by the manufacture. Continue annual eye exams. Consider referral to life skills educator and dietitian. Again compliance is limited by dementia. If you experience low blood sugar, treat this by eating a chewable fruit candy like skittles or jelly beans (about 8 pieces), 4 ounces (1/2 cup) of fruit juice (not diet), 1 tablespoon of honey or 4 glucose tablets or 1 packet of glucose gel. If your blood sugar is under 55, take double the amount of one of the above. Recheck your blood sugar in 15 minutes. Follow up in 2 weeks for type 2 diabetes. Orders: Orders AMB Glucose Monitoring Today E11.9 - Type 2 diabetes mellitus without complications Medications: New blood-glucose sensor (FreeStyle David 3 Plus Sensor device) Apply 1 new sensor every 15 days as directed to monitor blood glucose continuously. 6 ea 5RF insulin glargine U-300 conc (Toujeo Max U-300 SoloStar) 8 units (0.0267 mL) subcut DAILY 6 mL 5RF Refilled dextrose (TRUEplus Glucose) until symptoms of low blood sugar are controlled 15 grams (32 mL) PO Q15M PRN 128 mL 3RF hypoglycemia Discontinued flash glucose scanning reader (FreeStyle David 2 [place]) Discontinued Reason: Doctor's Order As directed 2 ea 3RF E11.9 - Type 2 diabetes mellitus without complications flash glucose sensor (FreeStyle David 2 Sensor kit) Discontinued Reason: Doctor's Order As directed 1 ea 1RF E11.9 - Type 2 diabetes mellitus without complications blood-glucose sensor (FreeStyle David 3 Sensor device) Discontinued Reason: Doctor's Order apply new sensor every 14 days 2 ea 11RF E11.65 - Type 2 diabetes mellitus with hyperglycemia Patient Instructions: Stop Humalog mix since she has not been taking it. Start Toujeo 8 units daily. Please call the office if she has blood sugars under 75 or if blood sugars are over 250. If you experience low blood sugar, treat this by eating a chewable fruit candy like skittles or jelly beans (about 8 pieces), 4 ounces (1/2 cup) of fruit juice (not diet), 1 tablespoon of honey or 4 glucose tablets or 1 glucose gel pack. If your blood sugar is under 55, take double the amount of one of the above. Recheck your blood sugar in 15 minutes. Coding Level of Care Code Est Pt Level 4 (96302) Diagnoses Uncontrolled type 2 diabetes mellitus with hyperglycemia E11.65
[2025-04-20 09:09] VITALS: BP 154/78; PULSE 74; O2SAT 93; BMI 39.2
[2025-04-20 09:35] LABS: Glucose, Whole Blood 230 mg/dL (60-115)
== END 2025-04-20 10:36 | disposition home or self-care (01) ==
LOC: HO.ENCR 09:03
PROVIDERS: PCP Internal Medicine; Visit Provider Physician Assistant Medical
DX: E11.65 Type 2 diabetes mellitus with hyperglycemia (principal)

== ENCOUNTER → 2025-04-20 09:02 | Outpatient (BNVA) | payer OTHER, SELFPAY | PROVIDERS: PCP Internal Medicine; Visit Provider Physician Assistant Medical | DX: E11.65 Type 2 diabetes mellitus with hyperglycemia (principal); F02.80 Dementia in other diseases classified elsewhere, unspecified severity, without behavioral disturbance, psychotic disturbance, mood disturbance, and anxiety; Z79.4 Long term (current) use of insulin; T38.3X6A Underdosing of insulin and oral hypoglycemic [antidiabetic] drugs, initial encounter; Y63.6 Underdosing and nonadministration of necessary drug, medicament or biological substance | CPT/HCPCS: 82947; 99212 ==

== ENCOUNTER 2025-05-01 15:30 | Outpatient (AMB) | payer OTHER, SELFPAY ==
--- NOTE | 2025-05-01 15:32 | A.OFFVIS_ITS ---
Vital Signs 05/01/25 15:33 05/01/25 15:58 Height 5 ft 3 in Weight 218 lb 4.122 oz BMI 38.7 BP 148/76 H Blood Pressure Location Rt brachial Position Sitting Pulse 87 Pulse Source Pulse Oximeter Pulse Oximetry (%) 90 L 94 Oxygen Delivery Method Room Air Intake Visit Reasons: T2DM Intake Note: Patient present today for T2DM follow up. Last Diabetic Eye exam: September 2024, seen yearly. Last Podiatry Visit: Does not see a Mophead Trimmer And Wrapper Most Recent HgA1C: 8.3% 03/14/2025 Random Glucose: 293 mg/dL Screw Machine Operator Required: Yes Screw Machine Operator Language: Elementary Science Teacher Services: Screw Machine Operator Offered & Declined Screw Machine Operator Name: Daughter Accompanied by: Daughter Allergies No Known Allergies Allergy (Verified 05/01/25 15:33) Medication List - Last Reconciled 05/01/25 by CEM Bautista acetazolamide 250 mg PO DAILY 90 days albuterol sulfate 90 mcg/actuation (Ventolin HFA) 2 puffs inhalation Q6H PRN barium sulfate 2%(w/v) (Readi-Cat 2) 900 mL PO ONCE [bed pads As directed] [BEDSIDE COMMODE As directed] blood sugar diagnostic (OneTouch Ultra Test strips) USE TWICE DAILY DIRECTED blood-glucose sensor (FreeStyle David 3 Plus Sensor device) Apply 1 new sensor every 15 days as directed to monitor blood glucose continuously. blood-glucose,supervisor powder and primer canning,cont (FreeStyle David 3 [place]) Use daily to monitor blood glucose levels continuously. celecoxib (Celebrex) 200 mg PO BID 30 days chair, wheel (Wheel chair) As directed cholecalciferol (vitamin D3) 1,250 mcg PO QWEEK coenzyme Q10 (Co Q-10) 100 mg PO DAILY 90 days dextrose (TRUEplus Glucose) 15 grams (32 mL) PO Q15M PRN donepezil 10 mg PO BEDTIME 30 days [ELECTRIC WHEELCHAIR As directed] [EPP MATTRESS As directed - FOR INDEFINITE USE] ergocalciferol (vitamin D2) 1,250 mcg PO QWEEK 90 days evolocumab (Repatha SureClick) 140 mg subcut Q2W 4 weeks famotidine 20 mg PO BID fluticasone furoate-vilanterol 100-25 mcg/dose (Breo Ellipta) 1 ea PO DAILY [FRONT-WHEELED WALKER (large) As directed] [HOSPITAL BED As directed] hydrochlorothiazide 12.5 mg PO DAILY 90 days insulin glargine U-300 conc (Toujeo Max U-300 SoloStar) 12 units subcut DAILY lamotrigine 25 mg PO DAILY@1200 30 days levothyroxine 25 mcg PO DAILY lidocaine 5% 1 patch topical DAILY [LIGHT TRANSFER WHEELCHAIR As directed] loratadine 10 mg PO DAILY PRN 90 days loratadine 10 mg PO DAILY memantine 5 mg PO BID metoprolol succinate ER 50 mg See Protocol PO DAILY 30 days mometasone 50 mcg/actuation 2 sprays intranasal DAILY multivitamin with folic acid 400 mcg (Daily-Ike (with folic acid)) 1 tab PO DAILY omeprazole 40 mg (2 x 20 mg) PO DAILY pen needle, diabetic As directed to administer insulin once daily polyethylene glycol 3350 17 grams PO DAILY [RAISED TOILET SEAT As directed] rosuvastatin 40 mg PO DAILY 90 days sennosides-docusate sodium 8.6-50 mg (Senna Plus) 1 tab PO BEDTIME tizanidine 4 mg PO BEDTIME PRN 90 days trazodone 25 mg (1/2 x 50 mg) PO TID [WHEELCHAIR As directed] [Wheelchair assessment and repair As directed] HPI Comments Details: This is an 84-year-old female with a past medical history of overactive bladder, vitamin-D deficiency, GERD, hypertension, hyperlipidemia, COPD and nocturnal hypoxemia, type 2 diabetes, hypothyroidism, SAVANNAH, dementia, asthma and obesity presenting for a diabetic management consult. She is with her daughter even who is the caregiver. Diagnosed 20-30 years ago. Hemoglobin A1c 8.3% 03/14/2025. Her CGM reader is not keeping the charge. Her daughter is contacting the company and has an extra reader for herself she will set up for the patient. She has a fingerstick glucometer, but they have not been using it. She lives with her daughter. Either her daughter, her grandson or her TAG STRINGER is with her during the day and night. Current medication regimen: Toujeo 8 units daily. Past medications: She was on metformin, and they are uncertain why it was discontinued in the past. Daughter thinks she may have been on a GLP 1 injection at 1 point. She was on Januvia, but this was discontinued because she does not take pills well. She gets agitated. Humalog mix discontinued due to noncompliance. Compliance issues: Dementia. Hypoglycemia symptoms: none Hyperglycemia symptoms: headache, dizzy, blurry vision, polydipsia Eye exam: yearly with [facility]. No retinopathy or macular edema. She has cataracts. Microvascular complications: neuropathy Macrovascular complications: ?mild [place] many years ago - daughter said she had a cardiac catheterization but no stent or CABG. ROS: Constitutional: No fevers or chills or unexplained weight loss. Eyes: No vision changes, blurry vision, double vision Respiratory: No shortness of breath Cardiovascular: No chest pain Gastrointestinal: No anorexia, nausea, vomiting or diarrhea. No abdominal pain Neurologic: No headache, dizziness, syncope Skin: No rash or itching. Physical exam: Constitutional: Alert, in no distress. Head: Normocephalic. Eyes: Pupils are equal, round and reactive to light. Extraocular muscles intact. Neck: Supple, No lymphadenopathy Respiratory: Clear to auscultation. Cardiovascular: S1 S2 regular. No murmurs PFSH Medical History Ventral hernia Uncontrolled type 2 diabetes mellitus with hyperglycemia Overactive bladder Vitamin D deficiency Allergic rhinitis Osteoporosis GERD (gastroesophageal reflux disease) Essential hypertension Pure hypercholesterolemia Nocturnal hypoxemia Acquired hypothyroidism Obesity (BMI 30-39.9) Diabetes mellitus Respiratory failure with hypercapnia SAVANNAH (obstructive sleep apnea) COPD (chronic obstructive pulmonary disease) Dementia with behavioral disturbance Asthma Otitis externa Elevated TSH Pain in left knee Morbid obesity with BMI of 45.0-49.9, adult Umbilical hernia without obstruction and without gangrene Osteoarthritis Memory impairment Surgical History H/O colonoscopy History of total left knee replacement History of total right knee replacement History of hysterectomy History of arthroplasty of left knee History of arthroplasty of right knee Family History Father Diabetes Cancer Mother Diabetes Social History Household Members: None Housing: Apartment Do you presently have visiting nurse or other home services: Yes (TAG STRINGER through [facility]) Unable to assess alcohol history related to: Unable to respond and Unknown Alcohol intake: never Comment: 1:1 sitter Patient Tobacco Use Status: Former Tobacco user Tobacco use type: Cigarette Years Smoked: 50 e-Cigarette/Vaping Use: Never Used Second Hand Smoke Exposure: No service: No Current occupational status: disabled Sexual orientation: Straight/Heterosexual Cognitive needs: Yes (cane) Hearing needs: Yes (hearing aide) Vision needs: Yes (glasses) Physical Exam Vital Signs: Last Vital Signs Pulse 87 05/01/25 15:33 BP 148/76 H 05/01/25 15:33 Pulse Ox 90 L 05/01/25 15:33 Oxygen Delivery Method Room Air 05/01/25 15:33 BMI result Body Mass Index 38.7 Results Reviewed Results Reviewed: Laboratory Last Values Glucose (Clinic) 293 mg/dL (60-115) H 05/01/25 15:45 Laboratory Tests 11/22/24 03/14/25 03/14/25 09:55 08:53 09:06 Plt Count 231 Creatinine 0.88 Estimated GFR > 60 Hemoglobin A1c % 8.3 H Triglycerides Cholesterol LDL Cholesterol, Calc HDL Cholesterol Urine Creatinine 87.43 Urine Microalbumin 9.0 Microalb/Creat Ratio 10.2 04/03/25 09:13 Plt Count Creatinine Estimated GFR Hemoglobin A1c % Triglycerides 108 Cholesterol 239 H LDL Cholesterol, Calc 161 H HDL Cholesterol 57 Urine Creatinine Urine Microalbumin Microalb/Creat Ratio Assessment & Plan Assessment & Plan (1) Uncontrolled type 2 diabetes mellitus with hyperglycemia: Code(s): E11.65 - Type 2 diabetes mellitus with hyperglycemia Category: Medical Plan In summary this is an 84-year-old female with uncontrolled type 2 diabetes complicated by dementia. Her daughter is her dynamite packing machine operator, and she has a TAG STRINGER. Due to dementia related agitation pills are difficult to administer per her daughter. Increase Toujeo to 12 units daily. Given frailty and dementia target A1c is 7.5%-8.5%. See HPI regarding CGM reader. Advised to use fingerstick glucometer as a backup until this is functioning. Continue annual eye exams. Consider referral to music educator and dietitian. Again compliance is limited by dementia. Reviewed treatment of hypoglycemia. Follow up in 3-4 weeks for type 2 diabetes. Coding Level of Care Code Est Pt Level 4 (73242) Complex EM visit Add On G2211 Diagnoses Uncontrolled type 2 diabetes mellitus with hyperglycemia E11.65
[2025-05-01 15:33] VITALS: BP 148/76; PULSE 87; O2SAT 90; BMI 38.7
[2025-05-01 15:49] LABS: Glucose, Whole Blood 293 mg/dL (60-115)
[2025-05-01 15:58] VITALS: O2SAT 94
--- OUTSIDE RECORDS SUMMARY | 2025-05-01 16:14 | XMS_ITS | Patient Health Record ---
Author Organization [facility] Address [address] [place] [address] Care Team Providers Care Pharmacy Grad Intern Name Role Phone Urban Dhaliwal Unavailable [phone] Reason For Referral No Information Plan Of Treatment No Information
== END 2025-05-01 16:05 | disposition home or self-care (01) ==
LOC: HO.ENCR 15:31
PROVIDERS: PCP Internal Medicine; Visit Provider Physician Assistant Medical
DX: E11.65 Type 2 diabetes mellitus with hyperglycemia (principal)

== ENCOUNTER → 2025-05-01 15:30 | Outpatient (BNVA) | payer OTHER, SELFPAY | PROVIDERS: PCP Internal Medicine; Visit Provider Physician Assistant Medical | DX: E11.65 Type 2 diabetes mellitus with hyperglycemia (principal); F03.90 Unspecified dementia, unspecified severity, without behavioral disturbance, psychotic disturbance, mood disturbance, and anxiety | CPT/HCPCS: 82947; 99212 ==

== ENCOUNTER 2025-06-29 13:42 | Outpatient (AMB) | payer OTHER, SELFPAY ==
--- OUTSIDE RECORDS SUMMARY | 2025-06-29 13:45 | XMS_ITS | Patient Health Record ---
Author Organization [facility] Address [address] [place] [address] Care Team Providers Care Weigher Production Name Role Phone Urban Dhaliwal Unavailable [phone] Reason For Referral No Information Plan Of Treatment No Information
[2025-06-29 13:51] VITALS: BP 134/70; PULSE 58; O2SAT 100; BMI 38.3
--- NOTE | 2025-06-29 13:51 | A.OFFVIS_ITS ---
Vital Signs 06/29/25 13:51 Height 5 ft 3 in Weight 216 lb 4.375 oz BMI 38.3 BP 134/70 Blood Pressure Location Rt brachial Position Sitting Pulse 58 Pulse Source Pulse Oximeter Pulse Oximetry (%) 100 Oxygen Delivery Method Room Air Intake Visit Reasons: Type II Diabetes Intake Note: Patient present today to follow up on Type 2 Diabetes Mellitus. Last Diabetic Eye exam: September 2024, seen yearly Last Podiatry Visit: Does not see a Rag Collector Random Glucose: 293mg/dl Hgb A1C: 10.1% 06/29/2025 Case Assembler Required: Yes Case Assembler Language: Tacking Machine Operator Services: Case Assembler Offered & Declined Case Assembler Name: Daughter Information Interpreted: non-clinical & clinical Accompanied by: Daughter Allergies No Known Allergies Allergy (Verified 06/29/25 13:52) HPI Comments Details: This is an 84-year-old female with a past medical history of overactive bladder, vitamin-D deficiency, GERD, hypertension, hyperlipidemia, COPD and nocturnal h ypoxemia, type 2 diabetes, hypothyroidism, SAVANNAH, dementia, asthma and obesity presenting for a diabetic management consult. She is with her daughter, Elayne, who is the caregiver. Diagnosed 20-30 years ago. Hemoglobin A1c 10.1% today 829/25. She lives with her daughter. Either her daughter, her grandson or her [employer] is with her during the day and night. Current medication regimen: Toujeo 18 units once daily Past medications: She was on metformin, and they are uncertain why it was discontinued in the past. Daughter thinks she may have been on a GLP 1 injection at 1 point. She was on Januvia, but this was discontinued because she does not take pills well. She gets agitated. Humalog mix discontinued due to noncompliance. Compliance issues: Dementia. Hypoglycemia symptoms: none Hyperglycemia symptoms: polydipsia and polydipsia Eye exam: yearly with [facility]. No retinopathy or macular edema. She has cataracts. Microvascular complications: neuropathy Macrovascular complications: ?mild [place] many years ago - daughter said she had a cardiac catheterization but no stent or CABG. She has hyperlipidemia and was switched to Repatha because she does not take pil ls well. ROS: Constitutional: No fevers or chills or unexplained weight loss. Eyes: No vision changes, blurry vision, double vision Respiratory: No shortness of breath Cardiovascular: No chest pain Gastrointestinal: No anorexia, nausea, vomiting or diarrhea. No abdominal pain Neurologic: No headache, dizziness, syncope Skin: No rash or itching. Physical exam: Constitutional: Alert, in no distress. Head: Normocephalic. Eyes: Pupils are equal, round and reactive to light. Extraocular muscles intact. Neck: Supple, No lymphadenopathy Respiratory: Clear to auscultation. Cardiovascular: S1 S2 regular. No murmurs PFSH Medical History Ventral hernia Uncontrolled type 2 diabetes mellitus with hyperglycemia Overactive bladder Vitamin D deficiency Allergic rhinitis Osteoporosis GERD (gastroesophageal reflux disease) Essential hypertension Pure hypercholesterolemia Nocturnal hypoxemia Acquired hypothyroidism Obesity (BMI 30-39.9) Diabetes mellitus Respiratory failure with hypercapnia SAVANNAH (obstructive sleep apnea) COPD (chronic obstructive pulmonary disease) Dementia with behavioral disturbance Asthma Otitis externa Elevated TSH Pain in left knee Morbid obesity with BMI of 45.0-49.9, adult Umbilical hernia without obstruction and without gangrene Osteoarthritis Memory impairment Surgical History H/O colonoscopy History of total left knee replacement History of total right knee replacement History of hysterectomy History of arthroplasty of left knee History of arthroplasty of right knee Family History Father Diabetes Cancer Mother Diabetes Social History Household Members: None Housing: Apartment Do you presently have visiting nurse or other home services: Yes ([employer] through [facility]) Unable to assess alcohol history related to: Unable to respond and Unknown Alcohol intake: never Comment: 1:1 sitter Patient Tobacco Use Status: Former Tobacco user Tobacco use type: Cigarette Years Smoked: 50 e-Cigarette/Vaping Use: Never Used Second Hand Smoke Exposure: No service: No Current occupational status: disabled Sexual orientation: Straight/Heterosexual Cognitive needs: Yes (cane) Hearing needs: Yes (hearing aide) Vision needs: Yes (glasses) Physical Exam Vital Signs: Last Vital Signs Pulse 58 06/29/25 13:51 BP 134/70 06/29/25 13:51 Pulse Ox 100 06/29/25 13:51 Oxygen Delivery Method Room Air 06/29/25 13:51 BMI result Body Mass Index 38.3 Results AMB Hemoglobin A1c AMB Hemoglobin A1c 10.1 % Last Edit by SHIMA Ward on 06/29/25 14:18 Results Reviewed Results Reviewed: Laboratory Last Values Glucose (Clinic) 293 mg/dL (60-115) H 06/29/25 13:58 Hgb A1c (Clinic) 10.1 % (4.0-6.0) H 06/29/25 14:13 Laboratory Tests 11/22/24 03/14/25 03/14/25 09:55 08:53 09:06 Plt Count 231 Creatinine 0.88 Estimated GFR > 60 Hemoglobin A1c % 8.3 H Triglycerides Cholesterol LDL Cholesterol, Calc HDL Cholesterol Urine Creatinine 87.43 Urine Microalbumin 9.0 Microalb/Creat Ratio 10.2 04/03/25 09:13 Plt Count Creatinine Estimated GFR Hemoglobin A1c % Triglycerides 108 Cholesterol 239 H LDL Cholesterol, Calc 161 H HDL Cholesterol 57 Urine Creatinine Urine Microalbumin Microalb/Creat Ratio Assessment & Plan Assessment & Plan (1) Uncontrolled type 2 diabetes mellitus with hyperglycemia: Code(s): E11.65 - Type 2 diabetes mellitus with hyperglycemia Category: Medical Plan In summary this is an 84-year-old female with uncontrolled type 2 diabetes complicated by dementia. Her daughter is her administrator social welfare, and she has a [employer]. Given frailty and dementia target A1c is 7.5%-8.5%. Due to dementia related agitation pills are difficult to administer per her daughter. Increase Toujeo from 18 units to 24 units daily. Start Mounjaro 2.5 mg weekly. Side effects reviewed. Denies contraindications to GLP 1. Continue annual eye exams. Consider referral to telehealth nurse educator and dietitian. Again compliance is limited by dementia. Reviewed treatment of hypoglycemia. Advised to bring sensor to appointments. Follow up in 3-4 weeks for type 2 diabetes. Orders: Orders AMB Hemoglobin A1c Today E11.65 - Type 2 diabetes mellitus with hyperglycemia Medications: New tirzepatide (Mounjaro) for 4 weeks 2.5 mg (0.5 mL) subcut QWEEK 2 mL 0RF Changed From insulin glargine U-300 conc (Toujeo Max U-300 SoloStar) 12 units subcut DAILY To insulin glargine U-300 conc (Toujeo Max U-300 SoloStar) 24 units (0.08 mL) subcut DAILY 6 mL 5RF Coding Level of Care Code Est Pt Level 4 (11948) Complex EM visit Add On G2211 Diagnoses Uncontrolled type 2 diabetes mellitus with hyperglycemia E11.65
[2025-06-29 14:16] LABS: Glucose, Whole Blood 293 mg/dL (60-115)
== END 2025-06-29 14:46 | disposition home or self-care (01) ==
LOC: HO.ENCR 13:43
PROVIDERS: PCP Internal Medicine; Visit Provider Physician Assistant Medical
DX: E11.65 Type 2 diabetes mellitus with hyperglycemia (principal)

== ENCOUNTER → 2025-06-29 13:42 | Outpatient (BNVA) | payer OTHER, SELFPAY | PROVIDERS: PCP Internal Medicine; Visit Provider Physician Assistant Medical | DX: E11.65 Type 2 diabetes mellitus with hyperglycemia (principal); E11.40 Type 2 diabetes mellitus with diabetic neuropathy, unspecified; E78.5 Hyperlipidemia, unspecified | CPT/HCPCS: 82947; 83036; 99212 ==

== ENCOUNTER 2025-07-30 08:43 | Outpatient (REF) | payer OTHER, SELFPAY ==
[2025-07-30 09:02] LABS: MANUAL DIFF FLAG NO
--- OUTSIDE RECORDS SUMMARY | 2025-07-30 09:09 | XMS_ITS | Patient Health Record ---
Author Organization [facility] Address [address] [place] [address] Care Team Providers Care Care Connector Name Role Phone Urban Dhaliwal Unavailable [phone] Reason For Referral No Information Plan Of Treatment No Information
[2025-07-30 09:41] LABS: Hematocrit 45.1 % (37.0-47.0); Hemoglobin 14.1 g/dl (12.0-16.0); Imm Gran Abs Auto 0.01 X10*3/uL (0.00-0.03); Imm Gran Pct Auto 0.1 % (0.0-0.4); Lymphocytes Absolute Auto 3.1 X10*3/uL (1.2-4.9); Mean Corpuscular HGB Conc 31.3 g/dl (31.0-35.0); Mean Corpuscular Hemoglobin 26.6 pg (27.0-33.0); Mean Corpuscular Volume 84.9 fL (80.0-98.0); NRBC Abs Auto 0.000 X10*3/uL (0.0-0.012); NRBC Pct Auto 0.0 /100WBC (0.0-0.2); Platelet Count 254 X10*3/uL (160-400); Red Blood Count 5.31 X10*6/uL (4.20-5.50); White Blood Count 6.7 X10*3/uL (4.8-10.8)
[2025-07-30 10:15] LABS: Appearance Urine Clear; Glucose Urine UA Negative (Negative); PH 5.5 (5.0-9.0); Specific Gravity - Urine 1.010 (1.005-1.025); UMIC TRIGGER UACC YES
[2025-07-30 10:39] LABS: Alanine Aminotransferase 6 U/L (0-31); Albumin Level 4.2 g/dL (3.5-5.0); Alkaline Phosphatase 78 U/L (39-117); Anion Gap 13 (12-20); Aspartate Amino Transferase 15 U/L (5-31); Blood Urea Nitrogen 14 mg/dL (9-16); Calcium 9.6 mg/dL (8.4-10.2); Carbon Dioxide 25 mmol/L (22-29); Chloride 109 mmol/L (96-108); Cholesterol 160 mg/dL (<200); Estimated Glomerular Filt Rate > 60; HDL Cholesterol 45 mg/dL (>40); Potassium 3.9 mmol/L (3.3-5.1); Sodium 143 mmol/L (135-145); Total Protein 7.7 g/dL (6.5-8.0); Triglycerides 124 mg/dL (<150)
[2025-07-30 11:02] LABS: Free T4 (Free Thyroxine) 0.95 ng/dL (0.71-1.85); Thyroid Stimulating Hormone 4.79 uIU/mL (0.32-4.0)
[2025-07-30 11:08] LABS: Microalbum/Creatinine Ratio Ur 6.4 ug/mg cr (<30)
[2025-07-30 11:12] LABS: Folate 12.1 ng/mL (> or = 4.0); Vitamin B12 345 pg/mL (200-900)
== END 2025-07-30 08:44 | disposition home or self-care (01) ==
LOC: HO.LAB 08:43
PROVIDERS: PCP Internal Medicine; Visit Provider Internal Medicine
DX: E11.9 Type 2 diabetes mellitus without complications (principal); E53.8 Deficiency of other specified B group vitamins; E78.00 Pure hypercholesterolemia, unspecified; E03.9 Hypothyroidism, unspecified; D64.9 Anemia, unspecified; E55.9 Vitamin D deficiency, unspecified
CPT/HCPCS: 36415; 80053; 80061; 81001; 81003; 82043; 82306; 82570; 82607; 82746; 83036; 84439; 84443; 85025

== ENCOUNTER 2025-07-31 15:28 | Outpatient (AMB) | payer OTHER, SELFPAY ==
[2025-07-31 15:37] VITALS: BP 126/64; PULSE 82; O2SAT 91; BMI 37.7
--- NOTE | 2025-07-31 15:37 | A.OFFPC_ITS ---
Vital Signs 07/31/25 15:37 Height 5 ft 3 in Weight 213 lb BMI 37.7 BP 126/64 Blood Pressure Location Lt brachial Position Sitting Pulse 82 Pulse Source Pulse Oximeter Pulse Oximetry (%) 91 L Oxygen Delivery Method Room Air Intake Visit Reasons: DM, dementia, hyperlipidemia Insert Molding Operator Required: No Accompanied by: Self / Same As Patient Allergies No Known Allergies Allergy (Verified 07/31/25 16:38) Medication List - Last Reconciled 07/31/25 by Jaime Pugh MD acetazolamide 250 mg PO DAILY 90 days albuterol sulfate 90 mcg/actuation (Ventolin HFA) 2 puffs inhalation Q6H PRN barium sulfate 2%(w/v) (Readi-Cat 2) 900 mL PO ONCE [bed pads As directed] [BEDSIDE COMMODE As directed] blood sugar diagnostic (independenceITTouch Ultra Test strips) USE TWICE DAILY DIRECTED blood-glucose sensor (Lumicell DiagnosticsStyle David 3 Plus Sensor device) Apply 1 new sensor every 15 days as directed to monitor blood glucose continuously. blood-glucose,cigarette making machine hopper feeder,cont (FreeStyle David 3 Sonora) Use daily to monitor blood glucose levels continuously. celecoxib (Celebrex) 200 mg PO BID 30 days chair, wheel (Wheel chair) As directed cholecalciferol (vitamin D3) 1,250 mcg PO QWEEK coenzyme Q10 (Co Q-10) 100 mg PO DAILY 90 days dextrose (TRUEplus Glucose) 15 grams (32 mL) PO Q15M PRN donepezil 10 mg PO BEDTIME 30 days [ELECTRIC WHEELCHAIR As directed] [EPP MATTRESS As directed - FOR INDEFINITE USE] ergocalciferol (vitamin D2) 1,250 mcg PO QWEEK 90 days evolocumab (Repatha SureClick) 140 mg subcut Q2W 4 weeks famotidine 20 mg PO BID fluticasone furoate-vilanterol 100-25 mcg/dose (Breo Ellipta) 1 ea PO DAILY [FRONT-WHEELED WALKER (large) As directed] [HOSPITAL BED As directed] hydrochlorothiazide 12.5 mg PO DAILY 90 days insulin glargine U-300 conc (Toujeo Max U-300 SoloStar) 24 units (0.08 mL) subcut DAILY lamotrigine 25 mg PO DAILY@1200 30 days levothyroxine 25 mcg PO DAILY lidocaine 5% 1 patch topical DAILY [LIGHT TRANSFER WHEELCHAIR As directed] loratadine 10 mg PO DAILY memantine 5 mg PO BID metoprolol succinate ER 50 mg See Protocol PO DAILY 30 days mometasone 50 mcg/actuation 2 sprays intranasal DAILY multivitamin with folic acid 400 mcg (Daily-Ike (with folic acid)) 1 tab PO DAILY omeprazole 40 mg (2 x 20 mg) PO DAILY pen needle, diabetic As directed to administer insulin once daily polyethylene glycol 3350 17 grams PO DAILY [RAISED TOILET SEAT As directed] sennosides-docusate sodium 8.6-50 mg (Senna Plus) 1 tab PO BEDTIME tirzepatide (Mounjaro) 2.5 mg (0.5 mL) subcut QWEEK tizanidine 4 mg PO BEDTIME PRN 90 days trazodone 25 mg (1/2 x 50 mg) PO TID [WHEELCHAIR As directed] [Wheelchair assessment and repair As directed] Tobacco use date assessed: 07/31/25 Fall risk assessment: No Falls in past year Last assessed Fall Risk: 07/31/25 Dental Screening Dental Screen Date: 07/31/25 Did you have a dental visit in the last 12 months?: No Did you have a dental problem in the last 6 months where you did not have access to dental care?: No Was dental information given to patient?: No HPI DM, dementia, hyperlipidemia HPI Details Patient comes in today for her follow up visit - information is obtained mostly from her daughter as patient has some cognitive impairment due to her dementia Patient is reportedly doing okay She denies any headaches or dizziness Denies any chest pains, no increased shortness of breath No nausea /vomiting, no abdominal pain No change in bowel habits noted She was seen by endocrinology last month and had changes made to her medication regimen - Toujeo was increased to 24 units QD and she was started on Mounjaro 2.5 mg once a week and all of her other oral diabetic medications were discontinued due to difficulty with compliance as a result of her dementia She had her follow-up labs done yesterday - to discuss her results [facility] Medical History Ventral hernia Uncontrolled type 2 diabetes mellitus with hyperglycemia Overactive bladder Vitamin D deficiency Allergic rhinitis Osteoporosis GERD (gastroesophageal reflux disease) Essential hypertension Pure hypercholesterolemia Nocturnal hypoxemia Acquired hypothyroidism Obesity (BMI 30-39.9) Diabetes mellitus Respiratory failure with hypercapnia SAVANNAH (obstructive sleep apnea) COPD (chronic obstructive pulmonary disease) Dementia with behavioral disturbance Asthma Otitis externa Elevated TSH Pain in left knee Morbid obesity with BMI of 45.0-49.9, adult Umbilical hernia without obstruction and without gangrene Osteoarthritis Memory impairment Surgical History H/O colonoscopy History of total left knee replacement History of total right knee replacement History of hysterectomy History of arthroplasty of left knee History of arthroplasty of right knee Family History Father Diabetes Cancer Mother Diabetes Social History Household Members: None Housing: Apartment Do you presently have visiting nurse or other home services: Yes (BUSINESS SERVICES COORDINATOR through [employer]) Alcohol intake: never Comment: 1:1 sitter Patient Tobacco Use Status: Former Tobacco user Tobacco use type: Cigarette Years Smoked: 50 e-Cigarette/Vaping Use: Never Used Second Hand Smoke Exposure: No service: No Current occupational status: disabled Sexual orientation: Straight/Heterosexual Cognitive needs: Yes (cane) Hearing needs: Yes (hearing aide) Vision needs: Yes (glasses) Questionnaire PHQ-9 Over the last 2 weeks, how often have you been bothered by any of the following problems? Depression Screening Interpretation: Positive Depression Screening Follow-up: Follow-up Visit Requested Depression Screening Done: Yes Source: Developed by Drs. Urban Chaudhary, Deanne Beatty, Sukh Lopez and colleagues, with an educational antonio from [email or web address]. Thrive Questionnaire Date Thrive assessed: 03/29/25 I am a: Patient What is your living situation today?: I have a steady place to live Within the past 12 months, did the food you bought not last and you didn't have the money to get more?: I choose not to answer this question Within the past 12 months, did you worry whether your food would run out before you got money to buy more?: I choose not to answer this question Do you have trouble paying for medicines?: I choose not to answer this question Do you have trouble getting transportation to medical appointments?: I choose not to answer this question Do you have trouble paying your heating and electricity bill?: I choose not to answer this question Do you have trouble taking care of your child, family member or friend?: I choose not to answer this question Do you have trouble with day-to-day activities such as bathing, preparing meals, shopping, managing finances, etc.?: I choose not to answer this question Are you currently unemployed and looking for a job?: I choose not to answer this question Are you interested in more education?: I choose not to answer this question Please select the resources that you would like help with: None Currently or been in a relationship where the following occur: I choose not to answer THRIVE Score: 0 AUDIT C Alcohol Use Questionnaire (AUDIT-C) 1. How often do you have a drink containing alcohol?: Never 3. How often do you have six or more drinks on one occasion?: Never Total Score: 0 Score Reviewed/Action Taken: Yes OSVALDO-7 AMB Questionnaire OSVALDO-7 Date OSVALDO - 7 assessed: 03/29/25 Source: Developed by Drs. Urban Chaudhary, Deanne Beatty, Sukh Lopez and colleagues, with an educational antonio from [email or web address]. Review of Systems Const Details: Patient continues to have some ongoing confusion and most of her information here is obtained from patient's daughter Unobtainable due to mental status (most of her information here is obtained from patient's daughter) Denies chills, Denies fatigue, Denies fever(s) and Denies headache(s) ENT Denies dysphagia, Denies dizziness, Denies otalgia, Denies headache(s), Denies neck pain, Denies odynophagia and Denies sore throat Card Denies chest pain, Denies palpitations and Reports dyspnea on exertion (mild, chronic) Resp Denies chest congestion, Denies cough and Reports dyspnea on exertion (mild, chronic) GI Denies abdominal pain, Denies constipation, Denies dysphagia, Denies heartburn, Denies diarrhea, Denies nausea, Denies odynophagia and Denies vomiting Denies difficulty voiding, Denies dysuria and Reports urinary incontinence Musc Denies back pain, Reports arthralgias (over the right shoulder and left knee, on and off) and Denies neck pain Skin/Breast Denies rash Neuro Reports behavioral changes (on and off), Reports confusion, Denies dizziness, Denies headache(s) and Reports memory loss Psych Reports anxiety, Reports behavioral changes (on and off), Reports confusion and Reports memory loss Endo Denies fatigue and Denies palpitations Physical exam (Primary Care) Vital Signs: Last Vital Signs Pulse 82 07/31/25 15:37 BP 126/64 07/31/25 15:37 Pulse Ox 91 L 07/31/25 15:37 Oxygen Delivery Method Room Air 07/31/25 15:37 BMI result Body Mass Index 37.7 Tobacco/Smoking Status: Tobacco use Status Tobacco use date assessed 07/31/25 07/31/25 15:38 Patient Tobacco Use Status Former Tobacco user 07/31/25 15:38 Tobacco use type Cigarette 07/31/25 15:38 e-Cigarette/Vaping Use Never Used 07/31/25 15:38 Depression Screening Interpretation: Positive Depression Screening Follow-up: Follow-up Visit Requested Thrive Assessment: Date of Thrive Assessment Date Thrive assessed 03/29/25 07/31/25 15:38 Currently or been in a relationship where the following occur: I choose not to answer Const General: confusion Orientation/consciousness: confusion HENMT Ears: TM's normal bilaterally and EAC's normal Throat: Yes posterior oropharynx normal and Yes tonsils normal (no TP congestion) Neck Neck: Yes supple and No lymphadenopathy Thyroid: Thyroid normal Resp Auscultation: no crackles, no rales, no wheezes and diminished lung sounds (slightly) bilateral Cardio Rate: regular rate Rhythm: regular rhythm Heart sounds: no murmurs GI Palpation (GI): Soft to palpation and nontender Auscultation: normal bowel sounds General: Yes no CVA tenderness Back/Spine/Pelvis Back: no CVA tenderness Skin Rashes: no rashes Neuro General: confusion Extrem General: Yes no clubbing, cyanosis or edema Results Reviewed Results Reviewed: Laboratory Tests 06/29/25 07/30/25 07/30/25 14:13 08:53 09:01 WBC 6.7 Hgb 14.1 Hct 45.1 Plt Count 254 Sodium 143 Potassium 3.9 Creatinine 0.77 Estimated GFR > 60 Fasting Glucose 127 H Hgb A1c (Clinic) 10.1 H Hemoglobin A1c % 8.7 H Calcium 9.6 AST 15 ALT 6 Triglycerides 124 Cholesterol 160 LDL Cholesterol, Calc 91 HDL Cholesterol 45 Vitamin B12 345 25-OH Vitamin D Total 25.2 L TSH 4.79 H Free T4 0.95 Ur Specific [place] 1.010 Urine Protein Negative Urine Glucose (UA) Negative Urine Blood Negative Urine Nitrite Negative Ur Leukocyte Esterase Trace H Microalb/Creat Ratio 6.4 Coding Level of Care Code Est Pt Level 4 (81585) Diagnoses Type 2 diabetes mellitus without complication, with long-term current use of insulin E11.9; Z79.4 Diabetes mellitus complication status: without complication Diabetes mellitus terminal operations supervisor insulin use: with detention use Diabetes mellitus type: type 2 Dementia with behavioral disturbance F03.918 Pure hypercholesterolemia E78.00 Essential hypertension I10 Mild intermittent asthma without complication J45.20 Asthma complication type: uncomplicated Asthma persistence: intermittent Asthma severity: mild Nocturnal hypoxemia G47.34 SAVANNAH (obstructive sleep apnea) G47.33 Acquired hypothyroidism E03.9 Gastroesophageal reflux disease without esophagitis K21.9 Esophagitis presence: without esophagitis Age-related osteoporosis without current pathological fracture M81.0 Osteoporosis type: age-related Presence of current pathological fracture: without current pathological fracture Vitamin D deficiency E55.9 Allergic rhinitis, unspecified seasonality, unspecified trigger J30.9 Allergic rhinitis seasonality: unspecified Allergic rhinitis trigger: unspecified Primary osteoarthritis, unspecified site M19.91 Osteoarthritis location: unspecified site Osteoarthritis type: primary Umbilical hernia without obstruction and without gangrene K42.9 Obstruction and gangrene presence: without obstruction or gangrene Overactive bladder N32.81 Obesity (BMI 30-39.9) E66.9 Assessment & Plan Assessment & Plan (1) Diabetes mellitus: Code(s): E11.9 - Type 2 diabetes mellitus without complications Category: Medical Qualifiers: Diabetes mellitus complication status: without complication Diabetes mellitus terminal operations supervisor insulin use: with terminal operations supervisor use Diabetes mellitus type: type 2 Qualified Code(s): E11.9 - Type 2 diabetes mellitus without complications; Z79.4 - penitentiary (current) use of insulin Plan: Her HgbA1c has improved to 8.7% on her labs done yesterday (her in-office HgbA1c was up to 10.1% when checked at the endocrinology office last month) - goal is at least < 7.0% Reinforced diabetic diet (to patient's daughter) She used to be on Humalog Mix 75/25 60 units SQ BID and Januvia 100 mg QD but per her daughter, it was getting more and more difficult to get patient to take her medications, including her insulin injections, as well as to comply with her diet, due to her declining cognition States that patient hardly eats anything most of the time nowadays and attempts to convince her to eat something is often met with angry outbursts from patient or she just completely ignores any instructions We have since referred patient to endocrinology and she is now being followed by endocrinology for her diabetes Patient's medications were switched over to Tresiba and Mounjaro and she is now on Tresiba at 24 units QD and Mounjaro at 2.5 mg once a week (she is now OFF Humalog Mix and Januvia) (2) Dementia with behavioral disturbance: Code(s): F03.918 - Unspecified dementia, unspecified severity, with other behavioral disturbance Category: Medical Plan: She required chemical restraint with antipsychotics and admission briefly to the geriatric psychiatry unit during her hospital admission in the fall of 2022 She has since been weaned off her psychiatric meds and released back to the care of her daughter and family, who are willing to care for her 24/05 Continue Trazodone 25 mg TID and Donepezil 10 mg Q HS Follow up with psychiatry as scheduled Patient has also been referred to neurology for further evaluation and management and was seen by Dr. Umana back in May 2023 She was diagnosed then with Alzheimer's disease and started additionally on Memantine 5 mg BID but patient's daughter states that she would not even take the medication (3) Pure hypercholesterolemia: Code(s): E78.00 - Pure hypercholesterolemia, unspecified Category: Medical Plan: Results her labs done yesterday reviewed and discussed with patient's daughter She is advised that her mother's cholesterol levels have all improved significantly on her current Rx (Repatha 140 mg Q 2 weeks) Reinforced low cholesterol diet Will have patient recheck her labs and fasting lipids in 4 months for follow-up (4) Essential hypertension: Code(s): I10 - Essential (primary) hypertension Category: Medical Plan: Reinforced low sodium diet - goal is systolic BP of at least 130 to 140 mm or less Continue Metoprolol ER 50 mg QD and HCTZ 12.5 mg QD (5) Asthma: Code(s): J45.909 - Unspecified asthma, uncomplicated Category: Medical Qualifiers: Asthma complication type: uncomplicated Asthma persistence: intermittent Asthma severity: mild Qualified Code(s): J45.20 - Mild intermi ttent asthma, uncomplicated Plan: Appears controlled Continue Breo Ellipta 100-25 mcg 1 inhalation QD and Albuterol HFA 2 inhalations Q 6 hours PRN She also has Albuterol nebulizer solution that she uses with her updraft device when needed Follow up with pulmonary as scheduled (6) Nocturnal hypoxemia: Code(s): G47.34 - Idiopathic sleep related nonobstructive alveolar hypoventilation Category: Medical Plan: Patient had mild hypoxemia and hypercapnia when she was hospitalized a couple of years ago Oxygen saturation during 6 minutes of walking stayed normal; overnight oximetry done recently showed oxygen saturation staying below 88% for 23 minutes and she qualifies for oxygen use at night Her daughter has tried convincing patient to agree to using oxygen at night, with limited success Follow up with [facility] (Dr. Singh) as scheduled (7) SAVANNAH (obstructive sleep apnea): Comment: PATIENT DOES HAVE HISTORY OF OBSTRUCTIVE SLEEP APNEA SINCE 2013 WHEN SHE HAD THE SLEEP STUDY. BUT SHE HAS NOT BEEN ABLE TO USE THE CPAP. CLAIMS THAT SHE IS SLEEPING OKAY. SHE HAS FEATURES OF CHRONIC HYPOVENTILATION SYNDROME, THAT HAS IMPROVED WITH THE USE OF ACETAZOLAMIDE 250 MG DAILY. HOWEVER SHE HAS TENDENCY TO MISS TAKING THIS MEDICATION. Code(s): G47.33 - Obstructive sleep apnea (adult) (pediatric) Category: Medical Plan: (+) SAVANNAH - sleep study done in 2013 Patient has not been able to use her CPAP device and claims that she sleeps okay without the device but patient also has dementia and whatever she says would not really be accurate or reliable She reportedly has features of chronic hypoventilation syndrome and was instead started on Acetazolamide, which has helped improve her symptoms Continue Acetazolamide 250 mg QD Follow up with pulmonary / sleep medicine as scheduled (8) Acquired hypothyroidism: Code(s): E03.9 - Hypothyroidism, unspecified Category: Medical Plan: Continue Levothyroxine 25 mcg QD Will recheck her TFTs in 4 months for follow up (9) GERD (gastroesophageal reflux disease): Code(s): K21.9 - Gastro-esophageal reflux disease without esophagitis Category: Medical Qualifiers: Esophagitis presence: without esophagitis Qualified Code(s): K21.9 - Gastro-esophageal reflux disease without esophagitis Plan: Dietary restrictions reinforced Continue Omeprazole 20 mg 2 capsules (40 mg) QD and Famotidine 20 mg BID (10) Osteoporosis: Comment: S/P Alendronate x 5 yrs Code(s): M81.0 - Age-related osteoporosis without current pathological fracture Category: Medical Qualifiers: Osteoporosis type: age-related Presence of current pathological fracture: without current pathological fracture Qualified Code(s): M81.0 - Age- related osteoporosis without current pathological fracture Plan: Repeat BMD done on 05/22/2022 revealed (+) osteoporosis based on the lowest T- score value of -2.6 in the lumbar spine applying World Health Organization criteria - BMD appears mostly unchanged from his previous BMD done on 09/20/2017 S/P Alendronate Rx x 5 yrs - Rx was stopped a couple of years ago Fall precautions reinforced Have reminded patient's daughter to make sure patient is on daily Vitamin D and calcium supplements daily Will continue to monitor her BMD every 2 to 3 years IF patient is able to cooperate with the procedure, which may get more and more difficult due to her declining cognition (11) Vitamin D deficiency: Code(s): E55.9 - Vitamin D deficiency, unspecified Category: Medical Plan: Continue Vitamin D 40881 units once a week (12) Allergic rhinitis: Code(s): J30.9 - Allergic rhinitis, unspecified Category: Medical Qualifiers: Allergic rhinitis seasonality: unspecified Allergic rhinitis trigger: unspecified Qualified Code(s): J30.9 - Allergic rhinitis, unspecified Plan: Continue Nasonex nasal spray and OTC Loratadine 10 mg QD PRN (13) Osteoarthritis: Comment: (+) Hx of bilateral knee arthroplasty - right knee in December 2010 and left knee on 07/18/2013 Code(s): M19.90 - Unspecified osteoarthritis, unspecified site Category: Medical Qualifiers: Osteoarthritis location: unspecified site Osteoarthritis type: primary Qualified Code(s): M19.91 - Primary osteoarthritis, unspecified site Plan: She was on Tramadol 50 mg TID PRN and Celecoxib 200 mg QD PRN in the past but s he has been refusing to take most of her meds lately X-rays of the right shoulder done back in September 2019 showed (+) degenerative changes in the shoulder She was started back on Celebrex by orthopedics recently and she is scheduled to start physical therapy next week Follow up with orthopedics as scheduled (14) Umbilical hernia: Code(s): K42.9 - Umbilical hernia without obstruction or gangrene Category: Medical Qualifiers: Obstruction and gangrene presence: without obstruction or gangrene Qualified Code(s): K42.9 - Umbilical hernia without obstruction or gangrene Plan: Patient was referred to surgery and she was seen a few months ago but she has reportedly refused to go for any surgery Abdominal CT done a couple of days ago revealed (+) large infraumbilical ventral hernia over the left lower quadrant containing fat and non-obstructed small bowel Follow up with surgery as scheduled or as needed (15) Overactive bladder: Code(s): N32.81 - Overactive bladder Category: Medical Plan: Follow up with urology as scheduled although have discussed with patient's daughter that they may not be able to do much here due to patient's urinary incontinence associated with her declining cognition (16) Obesity (BMI 30-39.9): Code(s): E66.9 - Obesity, unspecified Category: Medical Plan: Reinforced diet; exercise and weight loss are unrealistic at this time given patient's significant cognitive decline Plan Follow-up in 4 months Orders: Orders Hemoglobin A1c 4 Months E11.9 - Type 2 diabetes mellitus without complications Comprehensive [place]. Panel Fast 4 Months E78.00 - Pure hypercholesterolemia, unspecified Free T4 (Free Thyroxine) 4 Months E03.9 - Hypothyroidism, unspecified UA CC w/rflx Micro + Cult 4 Months R30.0 - Dysuria Complete Blood Count Auto Diff 4 Months D64.9 - Anemia, unspecified Lipid Panel 4 Months E78.00 - Pure hypercholesterolemia, unspecified Microalbumin, Random (w Creat) 4 Months E11.9 - Type 2 diabetes mellitus without complications Thyroid Stimulating Hormone 4 Months E03.9 - Hypothyroidism, unspecified Vitamin B12 and Folate 4 Months E53.8 - Deficiency of other specified B group vitamins Vitamin D 25-OH Total 4 Months E55.9 - Vitamin D deficiency, unspecified
--- OUTSIDE RECORDS SUMMARY | 2025-07-31 16:44 | XMS_ITS | Patient Health Record ---
Author Organization [facility] Address [address] [place] [address] Care Team Providers Care Office Services Associate Name Role Phone Urban Dhaliwal Unavailable [phone] Reason For Referral No Information Plan Of Treatment No Information
== END 2025-07-31 16:50 | disposition home or self-care (01) ==
LOC: HO.HMCH 15:29
PROVIDERS: PCP Internal Medicine; Visit Provider Internal Medicine
DX: E11.9 Type 2 diabetes mellitus without complications (principal); Z79.4 Long term (current) use of insulin; F03.918 Unspecified dementia, unspecified severity, with other behavioral disturbance; E78.00 Pure hypercholesterolemia, unspecified; I10 Essential (primary) hypertension; J45.20 Mild intermittent asthma, uncomplicated; G47.34 Idiopathic sleep related nonobstructive alveolar hypoventilation; G47.33 Obstructive sleep apnea (adult) (pediatric); E03.9 Hypothyroidism, unspecified; K21.9 Gastro-esophageal reflux disease without esophagitis; M81.0 Age-related osteoporosis without current pathological fracture; E55.9 Vitamin D deficiency, unspecified

== ENCOUNTER → 2025-07-31 15:28 | Outpatient (BNVA) | payer OTHER, SELFPAY | PROVIDERS: PCP Internal Medicine; Visit Provider Internal Medicine | DX: E11.9 Type 2 diabetes mellitus without complications (principal); F03.918 Unspecified dementia, unspecified severity, with other behavioral disturbance; E78.00 Pure hypercholesterolemia, unspecified; I10 Essential (primary) hypertension; J45.20 Mild intermittent asthma, uncomplicated; G47.34 Idiopathic sleep related nonobstructive alveolar hypoventilation; G47.33 Obstructive sleep apnea (adult) (pediatric); E03.9 Hypothyroidism, unspecified; K21.9 Gastro-esophageal reflux disease without esophagitis; M81.0 Age-related osteoporosis without current pathological fracture; E55.9 Vitamin D deficiency, unspecified; J30.9 Allergic rhinitis, unspecified; M19.91 Primary osteoarthritis, unspecified site; K42.9 Umbilical hernia without obstruction or gangrene; N32.81 Overactive bladder; E66.9 Obesity, unspecified; Z79.4 Long term (current) use of insulin | CPT/HCPCS: 99212 ==

== ENCOUNTER 2025-08-03 14:59 | Outpatient (AMB) | payer OTHER, SELFPAY ==
--- OUTSIDE RECORDS SUMMARY | 2025-08-03 15:02 | XMS_ITS | Patient Health Record ---
Author Organization [facility] Address [address] [place] [address] Care Team Providers Care Area Attendant Name Role Phone Urban Dhaliwal Unavailable [phone] Reason For Referral No Information Plan Of Treatment No Information
[2025-08-03 15:08] VITALS: BP 134/72; PULSE 68; O2SAT 94; BMI 38.2
--- NOTE | 2025-08-03 15:08 | MHC.OFFVIS ---
Vital Signs 08/03/25 15:08 Height 5 ft 3 in Weight 215 lb 6.266 oz BMI 38.2 BP 134/72 Blood Pressure Location Lt brachial Position Sitting Pulse 68 Pulse Source Pulse Oximeter Pulse Oximetry (%) 94 Oxygen Delivery Method Room Air Intake Visit Reasons: Type II diabetes Intake Note: Patient present today to follow up on Type 2 Diabetes Mellitus.? Last Diabetic Eye exam: September 2024, seen yearly Last Podiatry Visit: Does not see a Painting Technician Random Glucose: 101? mg/dl Hgb A1C: 8.7% 07/30/2025 Cartridge Loading Operator Required: Yes Cartridge Loading Operator Language: Web Marketing Specialist Services: Cartridge Loading Operator Offered & Declined (Cameroonian) Cartridge Loading Operator Name: Daughter Elayne Information Interpreted: non-clinical & clinical Accompanied by: lynn Allergies No Known Allergies Allergy (Verified 08/03/25 15:10) Medication List - Last Reconciled 08/03/25 by CEM Bautista acetazolamide 250 mg PO DAILY 90 days albuterol sulfate 90 mcg/actuation (Ventolin HFA) 2 puffs inhalation Q6H PRN barium sulfate 2%(w/v) (Readi-Cat 2) 900 mL PO ONCE [bed pads As directed] [BEDSIDE COMMODE As directed] blood sugar diagnostic (OneTouch Ultra Test strips) USE TWICE DAILY DIRECTED blood-glucose sensor (FreeStyle David 3 Plus Sensor device) Apply 1 new sensor every 15 days as directed to monitor blood glucose continuously. blood-glucose,energy derivatives trader,cont (FreeStyle David 3 Cherry Log) Use daily to monitor blood glucose levels continuously. celecoxib (Celebrex) 200 mg PO BID 30 days chair, wheel (Wheel chair) As directed cholecalciferol (vitamin D3) 1,250 mcg PO QWEEK coenzyme Q10 (Co Q-10) 100 mg PO DAILY 90 days dextrose (TRUEplus Glucose) 15 grams (32 mL) PO Q15M PRN diabetic supplies, miscellan. As directed donepezil 10 mg PO BEDTIME 30 days [ELECTRIC WHEELCHAIR As directed] [EPP MATTRESS As directed - FOR INDEFINITE USE] ergocalciferol (vitamin D2) 1,250 mcg PO QWEEK 90 days evolocumab (Repatha SureClick) 140 mg subcut Q2W 4 weeks famotidine 20 mg PO BID fluticasone furoate-vilanterol 100-25 mcg/dose (Breo Ellipta) 1 ea PO DAILY [FRONT-WHEELED WALKER (large) As directed] [HOSPITAL BED As directed] hydrochlorothiazide 12.5 mg PO DAILY 90 days insulin glargine U-300 conc (Toujeo Max U-300 SoloStar) 24 units (0.08 mL) subcut DAILY lamotrigine 25 mg PO DAILY@1200 30 days levothyroxine 25 mcg PO DAILY lidocaine 5% 1 patch topical DAILY [LIGHT TRANSFER WHEELCHAIR As directed] loratadine 10 mg PO DAILY memantine 5 mg PO BID metoprolol succinate ER 50 mg See Protocol PO DAILY 30 days mometasone 50 mcg/actuation 2 sprays intranasal DAILY multivitamin with folic acid 400 mcg (Daily-Ike (with folic acid)) 1 tab PO DAILY omeprazole 40 mg (2 x 20 mg) PO DAILY pen needle, diabetic As directed to administer insulin once daily polyethylene glycol 3350 17 grams PO DAILY [RAISED TOILET SEAT As directed] sennosides-docusate sodium 8.6-50 mg (Senna Plus) 1 tab PO BEDTIME tirzepatide (Mounjaro) 2.5 mg (0.5 mL) subcut QWEEK tizanidine 4 mg PO BEDTIME PRN 90 days trazodone 25 mg (1/2 x 50 mg) PO TID [WHEELCHAIR As directed] [Wheelchair assessment and repair As directed] HPI Comments Details: This is an 84-year-old female with a past medical history of overactive bladder, vitamin-D deficiency, GERD, hypertension, hyperlipidemia, COPD and nocturnal hypoxemia, type 2 diabetes, hypothyroidism, SAVANNAH, dementia, asthma and obesity presenting for a diabetic management consult. She is with her daughter, Elayne, who is the caregiver. Diagnosed 20-30 years ago. Hemoglobin A1c 8.7% down from 10.1%. Reviewed CGM data for the past [address] 6.8% Glucose variability 24% Very high 1% High 16% Target range 83% 0% hypoglycemia My interpretation is the patient has blood sugars within target range consistently over 24 hours with rare hyperglycemia during the day and overnight. She lives with her daughter. Either her daughter, her grandson or her PRINCIPAL CONSULTANT is with her during the day and night. Current medication regimen: Toujeo 24 units daily and Mounjaro 2.5 mg weekly. Past medications: She was on metformin, and they are uncertain why it was discontinued in the past.. She was on Januvia, but this was discontinued because she does not take pills well. She gets agitated. Humalog mix discontinued due to noncompliance. Hypoglycemia symptoms: none. Denies episodes. Hyperglycemia symptoms: None Eye exam: yearly with [facility]. No retinopathy or macular edema. She has cataracts. Microvascular complications: neuropathy Macrovascular complications: ?mild CT many years ago - daughter said she had a cardiac catheterization but no stent or CABG. She has hyperlipidemia and was switched to Repatha because she does not take pills well. ROS: Constitutional: No fevers or chills or unexplained weight loss. Eyes: No vision changes, blurry vision, double vision Respiratory: No shortness of breath Cardiovascular: No chest pain Gastrointestinal: No anorexia, nausea, vomiting or diarrhea. No abdominal pain Neurologic: No headache, dizziness, syncope Skin: No rash or itching. Physical exam: Constitutional: Alert, in no distress. Head: Normocephalic. Eyes: Pupils are equal, round and reactive to light. Extraocular muscles intact. Neck: Supple, No lymphadenopathy Respiratory: Clear to auscultation. Cardiovascular: S1 S2 regular. No murmurs Feet: Warm and well perfused. Intact DP pulses. No edema. No open wounds. [facility] Medical History (Updated 08/03/25 @ 16:07 by CEM Bautista) Type 2 diabetes mellitus, with long-term current use of insulin Ventral hernia Uncontrolled type 2 diabetes mellitus with hyperglycemia Overactive bladder Vitamin D deficiency Allergic rhinitis Osteoporosis GERD (gastroesophageal reflux disease) Essential hypertension Pure hypercholesterolemia Nocturnal hypoxemia Acquired hypothyroidism Obesity (BMI 30-39.9) Diabetes mellitus Respiratory failure with hypercapnia SAVANNAH (obstructive sleep apnea) COPD (chronic obstructive pulmonary disease) Dementia with behavioral disturbance Asthma Otitis externa Elevated TSH Pain in left knee Morbid obesity with BMI of 45.0-49.9, adult Umbilical hernia without obstruction and without gangrene Osteoarthritis Memory impairment Surgical History H/O colonoscopy History of total left knee replacement History of total right knee replacement History of hysterectomy History of arthroplasty of left knee History of arthroplasty of right knee Family History Father Diabetes Cancer Mother Diabetes Social History Household Members: None Housing: Apartment Do you presently have visiting nurse or other home services: Yes (PRINCIPAL CONSULTANT through [employer]) Alcohol intake: never Comment: 1:1 sitter Patient Tobacco Use Status: Former Tobacco user Tobacco use type: Cigarette Years Smoked: 50 e-Cigarette/Vaping Use: Never Used Second Hand Smoke Exposure: No service: No Current occupational status: disabled Sexual orientation: Straight/Heterosexual Cognitive needs: Yes (cane) Hearing needs: Yes (hearing aide) Vision needs: Yes (glasses) Physical Exam Vital Signs: Last Vital Signs Pulse 68 08/03/25 15:08 BP 134/72 08/03/25 15:08 Pulse Ox 94 08/03/25 15:08 Oxygen Delivery Method Room Air 08/03/25 15:08 BMI result Body Mass Index 38.2 Office Procedures Glucose Monitoring Details Details: See [facility] [address] - Glucose monitoring, continuous-physician I&R Procedure code (CPT) selection complete Results Reviewed Results Reviewed: Laboratory Last Values Glucose (Clinic) 101 mg/dL (60-115) 08/03/25 15:18 Laboratory Tests 07/30/25 07/30/25 08:53 09:01 Creatinine 0.77 Estimated GFR > 60 Hemoglobin A1c % 8.7 H AST 15 ALT 6 Triglycerides 124 Cholesterol 160 LDL Cholesterol, Calc 91 HDL Cholesterol 45 Vitamin B12 345 Urine Creatinine 92.56 Urine Microalbumin 6.0 Microalb/Creat Ratio 6.4 Assessment & Plan Assessment & Plan (1) Type 2 diabetes mellitus, with long-term current use of insulin: Code(s): E11.9 - Type 2 diabetes mellitus without complications; Z79.4 - long term care social worker (current) use of insulin Category: Medical Plan In summary this is an 84-year-old female with type 2 diabetes complicated by dementia. Her daughter is her music orchestrator, and she has a PRINCIPAL CONSULTANT. Her diabetes is controlled now per CGM data. Continue Toujeo 24 units daily. Continue Mounjaro 2.5 mg weekly. Continue annual eye exams. Reviewed treatment of hypoglycemia. Advised to bring sensor to appointments. Prescription for diabetic shoes given to the patient. Follow up in 3 months for type 2 diabetes. Orders: Orders AMB Glucose Monitoring Today E11.9 - Type 2 diabetes mellitus without complications Medications: New diabetic supplies, miscellan. As directed 1 ea 0RF E11.9 - Type 2 diabetes mellitus without complications, Z79.4 - assisted (current) use of insulin Coding Level of Care Code Est Pt Level 4 (62876) Diagnoses Type 2 diabetes mellitus, with long-term current use of insulin E11.9; Z79.4 CPT Codes Details - CPT: 29597 - Glucose monitoring, continuous-physician I&R ([id number])
[2025-08-03 15:36] LABS: Glucose, Whole Blood 101 mg/dL (60-115)
== END 2025-08-03 15:53 | disposition home or self-care (01) ==
LOC: HO.ENCR 14:59
PROVIDERS: PCP Internal Medicine; Visit Provider Physician Assistant Medical
DX: E11.9 Type 2 diabetes mellitus without complications (principal); Z79.4 Long term (current) use of insulin

== ENCOUNTER → 2025-08-03 14:59 | Outpatient (BNVA) | payer OTHER, SELFPAY | PROVIDERS: PCP Internal Medicine; Visit Provider Physician Assistant Medical | DX: E11.9 Type 2 diabetes mellitus without complications (principal); Z79.4 Long term (current) use of insulin | CPT/HCPCS: 82947; 99212 ==

== ENCOUNTER 2025-08-15 13:32 | Outpatient (AMB) | payer OTHER, SELFPAY ==
--- NOTE | 2025-08-15 13:37 | AM.OFFVISNUR ---
Intake Visit Reasons: flu shot Allergies No Known Allergies Allergy (Verified 08/03/25 15:10) Office Procedures Flu Questionnaire Does the patient have a severe egg allergy?: No Does the patient have severe life threatening allergies?: No Does the patient have a fever or illness today?: No Has the patient ever had Guillain-[place] Syndrome?: No Has the patient ever had any past reaction to a flu shot?: No Immunizations Fluarix [id number] (PF) 45 mcg (15 mcg x 3)/0.5 mL IM syringe Performing Provider: Jaime Pugh MD [facility] Administered by: Alice Judge RN on 08/15/25 13:38 Dose Route Admin Location Dispensed Lot Number Expiration Date [facility] Incinerator Operator 0.5 mL IM Left Deltoid 0.5 mL [id number] 04/30/26 [id number] [employer] Run VIS Given Date VIS Provided VIS Publication Date 08/15/25 Single Vaccine 24 Eligibility Eligibility Date Funding Source Not [facility] Eligible 08/15/25 Private Assessment & Plan Assessment & Plan Orders: Orders Influenza [id number] Immunization Today Z23 - Encounter for immunization Coding
--- OUTSIDE RECORDS SUMMARY | 2025-08-15 17:12 | XMS_ITS | Patient Health Record ---
Author Organization [facility] Address [address] [place] [address] Care Team Providers Care Helicopter Mechanic Name Role Phone Urban Dhaliwal Unavailable [phone] Reason For Referral No Information Plan Of Treatment No Information
== END 2025-08-15 13:50 | disposition home or self-care (01) ==
LOC: HO.HMCH 13:33
PROVIDERS: PCP Internal Medicine; Visit Provider Internal Medicine
DX: Z23 Encounter for immunization (principal)

== ENCOUNTER 2025-08-15 13:52 | Outpatient (REF) | payer OTHER, SELFPAY | END 2025-08-15 13:53 | disposition home or self-care (01) | LOC: HO.MAMMO 13:52 | PROVIDERS: PCP Internal Medicine; Visit Provider Internal Medicine | DX: Z12.31 Encounter for screening mammogram for malignant neoplasm of breast (principal) | CPT/HCPCS: 77063; 77067; 90471; 90656 ==

== ENCOUNTER → 2025-08-15 14:30 | Outpatient (BNV) | payer OTHER, SELFPAY | PROVIDERS: PCP Internal Medicine; Visit Provider Radiology Body Imaging | DX: Z12.31 Encounter for screening mammogram for malignant neoplasm of breast (principal) | CPT/HCPCS: 77063; 77067 ==